=== PATIENT | female | born 1970 | race African-American/Black ===

== ENCOUNTER 2016-06-22 11:10 | Emergency (ER) | payer SELFPAY ==
[~2016-06-22] VITALS: Ht 162.6 cm; Wt 118.5 kg
[2016-06-22 11:15] VITALS: Ht 162.6 cm; Wt 118.5 kg
== END 2016-06-22 12:21 | disposition left against medical advice (07) ==
LOC: FTE 11:10
DX: Z53.21 Procedure and treatment not carried out due to patient leaving prior to being seen by health care provider (principal)

== ENCOUNTER 2016-11-07 11:36 | Inpatient (IN) | payer BC, MEDICAID ==
[~2016-11-07] VITALS: Ht 154.9 cm; Wt 126.2 kg
[2016-11-07] MEDS ORDERED: ASPIRIN 325 MG TAB PO STA (12:01)
[2016-11-07 12:16] LABS: ADD SCAN DIFF NO
[2016-11-07 12:19] LABS: BASOPHILS % 0.4 % (0.0-2.0); EOSINOPHILS # 0.2 10^3/ul (0.0-0.5); EOSINOPHILS % 2.6 % (0.0-7.0); HEMATOCRIT 39.6 % (37.0-47.0); HEMOGLOBIN 12.2 g/dl (12.0-16.0); LYMPHOCYTES # 4.1 10^3/ul (0.8-2.9); LYMPHOCYTES % 48.2 % (15.0-51.0); MEAN CORPUSCULAR HEMOGLOBIN 26.6 pg (29.0-33.0); MEAN CORPUSCULAR HGB CONC 30.8 g/dl (32.0-37.0); MEAN CORPUSCULAR VOLUME 86.5 fl (82.0-101.0); MEAN PLATELET VOLUME 10.8 fl (7.4-10.4); MONOCYTE # 0.7 10^3/ul (0.3-0.9); MONOCYTES % 7.7 % (0.0-11.0); NEUTROPHIL # 3.5 10^3/ul (1.6-7.5); NEUTROPHILS % 40.9 % (39.0-77.0); PLATELET COUNT 282 10^3/UL (140-415); RED BLOOD COUNT 4.58 10^6/ul (4.20-5.40); RED CELL DISTRIBUTION WIDTH 17.4 % (11.5-14.5); WHITE BLOOD COUNT 8.5 10^3/ul (4.8-10.8)
[2016-11-07] MEDS ORDERED: LORAZEPAM 2 MG INJ IV ONE (12:30)
[2016-11-07] MEDS ORDERED: NITROGLYCERIN (SL) 0.4 MG TAB SL PRN (12:30)
[2016-11-07 12:33] LABS: INR 1.03; PROTIME 13.5 Sec (12.2-14.2); PT RATIO 1.1
[2016-11-07 12:34] LABS: PARTIAL THROMBOPLASTIN TIME 26.4 Sec (25.0-35.0)
--- NOTE | 2016-11-07 12:36 | RADRPT ---
PROCEDURE: Chest x-ray CLINICAL INDICATION: Chest pain TECHNIQUE: Chest single view COMPARISON: None FINDINGS: There is mild cardiomegaly and mild CHF. No confluent pneumonia seen. Suspect small bilateral pleur al effusions. IMPRESSION: Cardiomegaly with mild CHF and probable small bilateral pleural effusions RPTAT: HH .Harjinder Taylor MD, Date Time Electronically viewed and signed by .Harjinder Taylor MD, on 11/07/2016 12:35 .W/
[2016-11-07 12:41] LABS: ALANINE AMINOTRANSFERASE 51 IU/L (13-69); ALBUMIN 3.4 g/dl (3.3-4.9); ALBUMIN/GLOBULIN RATIO 1.03; ALKALINE PHOSPHATASE 62 IU/L (42-121); ANION GAP 16 (8-16); ASPARTATE AMINO TRANSFERASE 32 IU/L (15-46); BILIRUBIN,INDIRECT 0.4 mg/dl (0-1.1); BILIRUBIN,TOTAL 0.4 mg/dl (0.2-1.3); BLOOD UREA NITROGEN 20 mg/dl (7-20); CALCIUM 8.9 mg/dl (8.4-10.2); CARBON DIOXIDE 27 mmol/L (21-31); CHLORIDE 105 mmol/L (97-110); CREATINE KINASE 104 IU/L (23-200); GLUCOSE 163 mg/dl (70-220); POTASSIUM 4.3 mmol/L (3.5-5.1); SODIUM 144 mmol/L (135-144); TOTAL PROTEIN 6.7 g/dl (6.1-8.1)
[2016-11-07 12:52] LABS: B-TYPE NATRIURETIC PEPTIDE 2680 PG/ML (0-125); CK-MB 1.42 ng/ml (0.0-2.4)
[2016-11-07 12:56] LABS: TROPONIN-I < 0.012 ng/ml (0.00-0.12)
[2016-11-07] MEDS ORDERED: ONDANSETRON 4 MG INJ IV PRN ×2 (14:00→18:30)
[2016-11-07] MEDS ORDERED: ACETAMINOPHEN 325 MG TAB PO PRN (14:00)
--- NOTE | 2016-11-07 14:07 | ERA ---
ER Documentation Chief Complaint Date/Time DATE: 11/07/16 TIME: 14:02 Chief Complaint BIB RA 100 FOR EVAL OF CP THIS AM HPI This is a 46-year-old female with known history of hypertension and congestive heart failure who presents to the emergency department complaining of a sudden onset of chest pressure that occurred 20 minutes prior to arrival. Patient said it was localized to the left substernal region and radiated to the left arm but no radiation to the back or neck. She indicates that the pain is 10 out of 10 in intensity. She had no associated symptoms of nausea vomiting or diaphoresis. She indicates she had similar pain roughly 1 week ago when she had been seen and evaluated at [facility]. She stated she was discharged 7 days ago. Her interchange agent who she saw admission was Dr. Hall. She denies any shortness of breath at rest or exertion. She denies any swelling of her lower extremities. She does have a history of congestive heart failure and takes 40 mg of Lasix on a daily basis. She has been compliant with her medications. She denies any recent travel or prolonged immobilization. She takes aspirin on a daily basis. The patient's past surgical history includes cholecystectomy, hernia repair and section ROS All systems reviewed and are negative except as per history of present illness. Allergies Allergies: Coded Allergies: No Known Allergy (Unverified , 06/22/16) PMhx/Soc History of Surgery: Yes (GALLBLADDER, C SECION) Anesthesia Reaction: No Hx Neurological Disorder: No Hx Respiratory Disorders: Yes (COPD) Hx Cardiac Disorders: Yes (CHF, HTN ) Hx Psychiatric Problems: No Hx Miscellaneous Medical Probl: Yes (DM) Hx Alcohol Use: Yes Hx Substance Use: No Hx Tobacco Use: Yes Smoking Status: Current every day smoker Physical Exam Vitals Vital Signs Date Time Temp Pulse Resp B/P Pulse Ox O2 Delivery O2 Flow Rate FiO2 11/07/16 12:06 Nasal Cannula 2 11/07/16 11:56 98.0 95 19 149/111 99 Physical Exam Constitutional:Well-developed. Well-nourished. Patient tearful and appeared to be in a significant amount discomfort secondary to pain HEENT:Normocephalic. Atraumatic.Pupils were equal round reactive to light. Moist mucous membranes.No tonsillar exudates. Neck: No nuchal rigidity. No lymphadenopathy. No posterior cervical spine tenderness or step-offs. Respiratory: Not using accessory muscles of respiration.Lungs were clear to auscultation bilaterally. No rhonchi. No rales. No wheezing. Cardiovascular: Regular rate regular rhythm.No murmurs. No rubs were appreciated.S1, S2 normal. Distal pulses are palpable 2+ bilaterally. GI: Abdomen was obese so exam is limited due to body habitus. Nontender. Non Distended. No pulsatile abdominal masses or bruits. No rebound. No guarding. Bowel sounds were present and normal. Muscle skeletal: Full range of motion of both the upper and lower extremities bilaterally.Normal muscle tone.No assymetrical calf tenderness or swelling. Skin: No petechia, no purpura. No lesions on the palms or the soles of the feet. No maculopapular rash. NEURO: Patient was alert, awake, orientated x3.No facial droop. Gait observed and normal with no ataxia.Speech had regular rate and rhythm. No focal neurological deficits. Result Diagram: 11/07/16 1200 11/07/16 1200 Results 24 hrs Laboratory Tests Test 11/07/16 12:00 White Blood Count 8.510^3/ul Red Blood Count 4.5810^6/ul Hemoglobin 12.2g/dl Hematocrit 39.6% Mean Corpuscular Volume 86.5fl Mean Corpuscular Hemoglobin 26.6pg Mean Corpuscular Hemoglobin Concent 30.8g/dl Red Cell Distribution Width 17.4% Platelet Count 66472^3/UL Mean Platelet Volume 10.8fl Neutrophils % 40.9% Lymphocytes % 48.2% Monocytes % 7.7% Eosinophils % 2.6% Basophils % 0.4% Neutrophils # 3.510^3/ul Lymphocytes # 4.110^3/ul Monocytes # 0.710^3/ul Eosinophils # 0.210^3/ul Basophils # 0.010^3/ul Nucleated Red Blood Cells # 0.010^3/ul Prothrombin Time 13.5Sec Prothrombin Time Ratio 1.1 INR International Normalized Ratio 1.03 Activated Partial Thromboplast Time 26.4Sec Sodium Level 144mmol/L Potassium Level 4.3mmol/L Chloride Level 105mmol/L Carbon Dioxide Level 27mmol/L Anion Gap 16 Blood Urea Nitrogen 20mg/dl Creatinine 0.90mg/dl Glucose Level 163mg/dl Calcium Level 8.9mg/dl Total Bilirubin 0.4mg/dl Direct Bilirubin 0.00mg/dl Indirect Bilirubin 0.4mg/dl Aspartate Amino Transf (AST/SGOT) 32IU/L Alanine Aminotransferase (ALT/SGPT) 51IU/L Alkaline Phosphatase 62IU/L Creatine Kinase 104IU/L Creatine Kinase Index 1.4 Creatinine Kinase MB (Mass) 1.42ng/ml Troponin I < 0.012ng/ml B-Type Natriuretic Peptide 2680PG/ML Total Protein 6.7g/dl Albumin 3.4g/dl Globulin 3.30g/dl Albumin/Globulin Ratio 1.03 Current Medications Medications (Trade) Dose Ordered Sig/Eugenio Route PRN Reason Start Time Stop Time Status Last Admin Dose Admin Aspirin (Aspirin) 325 mg ONCE STAT PO 11/07/16 12:01 11/07/16 12:03 DC 11/07/16 12:21 Nitroglycerin (Nitroglycerin (Sl Tab) 0.4 Mg) 1 tab Q5M UP TO 3 DOSES PRN SL CHEST PAIN 11/07/16 12:30 Lorazepam (Ativan) 1 mg ONCE ONCE IV 11/07/16 12:30 11/07/16 12:31 DC 11/07/16 12:23 Ondansetron HCl (Zofran Inj) 4 mg ER BRIDGE PRN IV NAUSEA AND/OR VOMITING 11/07/16 14:00 11/08/16 13:59 Acetaminophen (Tylenol Tab) 650 mg ER BRIDGE PRN PO MILD PAIN/FEVER 11/07/16 14:00 11/08/16 13:59 Procedures/MDM The patient presented to the emergency department with chest pain. My clinical evaluation and workup was to distinguish minor causes of chest pain from acute life threatening conditions such as myocardial infarction, pulmonary embolism, aortic dissection, esophageal rupture, cardiac tamponade. The patient was placed on a surgical services manager and continuous pulse oximetry. IV access established by nursing staff. Patient appeared very anxious and received IV Ativan. She also received aspirin and nitroglycerin with minimal improvement of her chest pain. I placed a consult to Dr. Hall who kindly stated he will evaluate the patient. The patient will be admitted in serious condition to the hospitalist for serial 12-lead EKG tracings and cardiac set of enzymes. 12 Lead EKG tracing ordered and reviewed by myself showed: Sinus tachycardia 115 bpm and no arrhythmia. MN interval normal. QRS duration normal. No ST segment elevation No ST segment depression. No changes consistent with acute ischemia. Departure Diagnosis: Primary Impression: Chest pain Qualified Code: R07.9 - Chest pain, unspecified type Condition: Serious DENISSE MADRID Nov 07, 2016 14:07
[2016-11-07] MEDS ORDERED: METO25TA7 PO (15:04)
[2016-11-07] MEDS ORDERED: LISI20TA11 PO (15:05)
[2016-11-07] MEDS ORDERED: FURO40TA4 PO (15:05)
[2016-11-07] MEDS ORDERED: MAGNESIUM HYDROXIDE 30ML CUP PO PRN (18:30)
[2016-11-07] MEDS ORDERED: morphine 2 MG INJ IV PRN (18:30)
[2016-11-07] MEDS ORDERED: LORAZEPAM 1 MG TAB PO PRN (18:30)
[2016-11-07] MEDS ORDERED: NICOTINE (14 MG/24 HR) PATCH TRANSDERM PRN (18:30)
--- NOTE | 2016-11-07 18:33 | HP ---
Date/Time of Note Date/Time of Note DATE: 11/07/16 TIME: 18:27 Assessment/Plan VTE Prophylaxis VTE Prophylaxis Intervention: heparin Lines/Catheters IV [facility]ter [facility]from [facility] Saline Lock Assessment/Plan Chief Complaint/Hosp Course Patient is a 46-year-old female presenting to [facility] for chest pain Assessment Chest pain Anxiety Abdominal pain, chronic secondary to hernia Abdominal hernia, secondary to failed mesh Hypertension CHF, reduced ejection fraction COPD Diabetes mellitus type 2 Elevated BNP Plan -Cardiology has been consulted, Dr. Hall, plan for stress test tomorrow a.m. -Echocardiogram ordered -Restart home meds -Pain control as necessary -Pepcid for possible GI cause of chest pain -Very likely musculoskeletal cause given tenderness upon palpation Farooq Lim DO Problems: HPI/ROS Admit Date/Time Admit Date/Time Hx of Present Illness Patient is a 46-year-old -[place] female with a past medical history of hypertension, CHF, COPD and diabetes mellitus who presents to [facility] for chest pain. Patient states the chest pain began approximately 20 minutes prior to admission however did have episodes of chest pain yesterday after she smoked marijuana however that she thinks was laced with another substance. Patient also states that she was admitted recently 1 week ago at [facility] and saw Dr. Hall, cardiology, however due to logistical matters was not able to follow-up with his recommendations of echocardiogram. Patient is usually compliant with medications however for the past 2 days has not taking her blood pressure medications. Patient was admitted by the ED for chest pain rule out. Dr. Hall consulted. 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 Meds: Lisinopril 20 mg, metoprolol succinate 25 mg daily, Lasix 40 mg daily, Levemir, metformin, potassium supplement PMH/Family/Social Social History Smoking Status: Current every day smoker Exam/Review of Systems Vital Signs Vitals Vital Signs Date Time Temp Pulse Resp B/P Pulse Ox O2 Delivery O2 Flow Rate FiO2 11/07/16 15:34 93 18 131/83 99 Room Air 11/07/16 12:06 2 11/07/16 11:56 98.0 Exam Exam Physical exam General: Patient is laying in bed and answers questions appropriately, obese Mentation: Patient is alert and oriented 4, Head: Normocephalic atraumatic Eyes: EOMI, pupils reactive to light Neck: Supple, nontender, midline Respiratory: Clear to auscultation bilaterally Cardiovascular: regular rate, painful upon chest palpation Gastrointestinal: tender to deep palpation, bowel sounds heard. Neurological: Moves all extremities spontaneously Skin: No new skin lesions Labs Result Diagram: 11/07/16 1200 11/07/16 1200 Medications Medications Current Medications Ondansetron HCl (Zofran Inj) 4 mg Q6H PRN IV NAUSEA AND/OR VOMITING; Start at 18:30; Status UNV Morphine Sulfate (morphine) 2 mg Q4H PRN IV SEVERE PAIN LEVEL 7-10; Start 11/07 at 18:30; Status UNV Magnesium Hydroxide (Milk Of Mag) 30 ml DAILY PRN PO CONSTIPATION; Start at 18:30; Status UNV Zolpidem Tartrate (Ambien) 5 mg QHS PRN PO SLEEP; Start 11/07/16 at 18:30; Status UNV Famotidine (Pepcid Iv) 20 mg Q12 IV ; Start 11/07/16 at 21:00; Status UNV Heparin Sodium (Porcine) (Heparin (5000 Units/0.5 ml)) 5,000 unit Q8 SC ; Start 11/07/16 at 22:00; Status UNV Lorazepam (Ativan) 1 mg QHS PRN PO ANXIETY; Start 11/07/16 at 18:30; Status UNV Miscellaneous Information (* Miscellaneous Pharmacy Order) Discontinue current oral sulfonylur... ONCE ONCE XX ; Start 11/07/16 at 18:30; Stop 11/07/16 at 18: 31; Status UNV Diagnostic Test (Pha) (Accu-Chek) 1 ea XX ; Start 11/08/16 at 02:00; Status UNV Miscellaneous Information (* Miscellaneous Pharmacy Order) HYPOGLYCEMIA PROTOCOL w... ONCE ONCE XX ; Start 11/07/16 at 18:30; Stop 11/07/16 at 18:31; Status UNV Furosemide (Lasix) 40 mg DAILY PO ; Start 11/07/16 at 18:30; Status UNV Lisinopril (Zestril) 20 mg DAILY PO ; Start 11/07/16 at 18:30; Status UNV Metoprolol Succinate (Toprol Xl) 25 mg DAILY PO ; Start 11/07/16 at 18:30; Status UNV Nicotine (Nicoderm 14 Mg/ 24hr) 1 patch ONCE PRN TRANSDERM SMOKING; Start 11/07 at 18:30; Status UNV FAROOQ LIM Nov 07, 2016 18:33
[2016-11-07] MEDS ORDERED: GLUCOSE GEL 15 GRAM TUBE PO PRN ×2 (19:00)
[2016-11-07] MEDS ORDERED: GLUCOSE GEL 15 GRAM TUBE BUCCAL PRN (19:00)
[2016-11-07] MEDS ORDERED: DEXTROSE 50% 50 ML SYRINGE IV PRN ×2 (19:00)
[2016-11-07] MEDS ORDERED: GLUCAGON 1 MG INJ IM PRN (19:00)
[2016-11-07 19:12] LABS: CK-MB 8.21 ng/ml (0.0-2.4)
[2016-11-07 19:15] LABS: TROPONIN-I 0.348 ng/ml (0.00-0.12)
[2016-11-07 20:00] VITALS: PULSE 92
[2016-11-07] MEDS: morphine 4 MG/ML VIAL IV PRN (20:44)
[2016-11-07 21:00] VITALS: Ht 154.9 cm; Wt 126.2 kg
[2016-11-07] MEDS ORDERED: ALBUTEROL/IPRATROPIUM (NEB) 3 ML AMP HHN PRN (21:17)
[2016-11-07 21:22] VITALS: BP 143/96; RESP 19
[2016-11-07] MEDS ORDERED: METOPROLOL (XL) 25 MG TAB PO SCH (22:00)
[2016-11-07] MEDS ORDERED: FUROSEMIDE 40 MG TAB PO SCH (22:00)
[2016-11-07] MEDS: ISOSORBIDE DINITRATE 20 MG TAB PO SCH (22:05)
[2016-11-07] MEDS: ZOLPIDEM 5 MG TAB PO PRN (22:05)
[2016-11-07] MEDS: FUROSEMIDE 40 MG TAB PO SCH (22:06)
[2016-11-07] MEDS: METOPROLOL (XL) 25 MG TAB PO SCH (22:07)
[2016-11-07] MEDS: HEPARIN 5,000 UNIT/0.5 ML VIAL SC SCH (22:12)
[2016-11-07] MEDS: INSULIN ASPART [NOVOLOG] 3 ML PEN SC SCH (22:19)
[2016-11-07] MEDS: FAMOTIDINE 20 MG INJ IV SCH (22:25)
[2016-11-07] MEDS: LISINOPRIL 20 MG TAB PO SCH (22:26)
[2016-11-07] MEDS ORDERED: morphine 4 MG/ML VIAL IV PRN (22:30)
[2016-11-08] VITALS (24 sets, daily range): BP systolic 92–121; BP diastolic 60–84; PULSE 76–137; RESP 16–20
[2016-11-08 01:55] LABS: CK-MB 28.8 ng/ml (0.0-2.4)
[2016-11-08 01:56] LABS: TROPONIN-I 2.07 ng/ml (0.00-0.12)
[2016-11-08] MEDS: ACCU-CHEK XX SCH (02:23)
[2016-11-08] MEDS: morphine 4 MG/ML VIAL IV PRN ×3 (02:28→08:41)
[2016-11-08] MEDS: FUROSEMIDE 40 MG TAB PO SCH ×2 (05:28→17:11)
[2016-11-08] MEDS: HEPARIN 5,000 UNIT/0.5 ML VIAL SC SCH ×2 (05:35→07:48)
[2016-11-08] MEDS ORDERED: HEPARIN 1000 UNITS/ML 10 ML INJ IV PRN (07:30)
[2016-11-08] MEDS ORDERED: HEPARIN 1000 UNITS/ML 10 ML INJ IV ONE (07:30)
[2016-11-08] MEDS ORDERED: HEPARIN 25000 UNITS/250 ML 250 ML IV SCH (07:30)
[2016-11-08] MEDS: INSULIN ASPART [NOVOLOG] 3 ML PEN SC SCH ×4 (08:25→21:00)
[2016-11-08] MEDS: LISINOPRIL 20 MG TAB PO SCH (08:32)
[2016-11-08] MEDS: FAMOTIDINE 20 MG INJ IV SCH ×2 (08:32→21:13)
[2016-11-08] MEDS: ISOSORBIDE DINITRATE 20 MG TAB PO SCH ×3 (08:32→21:14)
[2016-11-08] MEDS: METOPROLOL (XL) 25 MG TAB PO SCH ×2 (08:33→21:00)
[2016-11-08 08:40] LABS: ADD SCAN DIFF NO
[2016-11-08 08:46] LABS: BASOPHIL # 0.1 10^3/ul (0.0-0.1); BASOPHILS % 0.8 % (0.0-2.0); EOSINOPHILS # 0.3 10^3/ul (0.0-0.5); EOSINOPHILS % 3.8 % (0.0-7.0); HEMATOCRIT 41.2 % (37.0-47.0); HEMOGLOBIN 12.5 g/dl (12.0-16.0); LYMPHOCYTES # 2.9 10^3/ul (0.8-2.9); LYMPHOCYTES % 35.4 % (15.0-51.0); MEAN CORPUSCULAR HEMOGLOBIN 26.3 pg (29.0-33.0); MEAN CORPUSCULAR HGB CONC 30.3 g/dl (32.0-37.0); MEAN CORPUSCULAR VOLUME 86.7 fl (82.0-101.0); MEAN PLATELET VOLUME 11.9 fl (7.4-10.4); MONOCYTE # 0.7 10^3/ul (0.3-0.9); NEUTROPHIL # 4.3 10^3/ul (1.6-7.5); NEUTROPHILS % 51.9 % (39.0-77.0); RED BLOOD COUNT 4.75 10^6/ul (4.20-5.40); RED CELL DISTRIBUTION WIDTH 18.4 % (11.5-14.5); WHITE BLOOD COUNT 8.2 10^3/ul (4.8-10.8)
[2016-11-08 08:56] LABS: PLATELET COUNT 186 10^3/UL (140-415)
[2016-11-08 10:13] LABS: CALCIUM 8.6 mg/dl (8.4-10.2); CREATININE 0.86 mg/dl (0.44-1.00); MAGNESIUM 1.5 mg/dl (1.7-2.5); POTASSIUM 4.1 mmol/L (3.5-5.1)
--- NOTE | 2016-11-08 11:33 | CONS ---
Date/Time of Note Date/Time of Note DATE: 11/08/16 TIME: 11:24 Assessment/Plan Assessment/Plan Chief Complaint/Hosp Course IMP: 1.NSTEMI 2.HTN 3.Cardiomyopathy-low EF 30-35% at OSH 4.CHF-systolic acute on chronic 5.substance abuse 6.Chest pain Recc: -Tele -serial ecg's -Continue zestril/BB/oral nitrates -ASA -LHC with possible PTCA/stent today Problems: Consultation Date/Type/Reason Admit Date/Time Nov 07, 2016 at 13:39 Initial Consult Date 11/07/2016 Type of Consultation: cardiololgy Reason for Consultation Nstemi Referring Provider: WILL JAEGER MD Exam/Review of Systems Vital Signs Vitals Vital Signs Date Time Temp Pulse Resp B/P Pulse Ox O2 Delivery O2 Flow Rate FiO2 11/08/16 08:55 81 118/74 11/08/16 08:45 99 Room Air 11/08/16 07:46 98.1 18 Intake and Output 11/07/16 11/07/16 11/08/16 15:00 23:00 07:00 Intake Total 800 ml Balance 800 ml Exam Review of Systems: CONSTITUTIONAL: No fevers, chills. PULMONARY: No sob CARDIOVASCULAR: positive chest pain GASTROINTESTINAL: No nausea/vomiting. GENITOURINARY: No hematuria/dysuria. MUSCULOSKELETAL: No myagias/arthalgias. PSYCHIATRIC: The patient denies depression. NEUROLOGIC: No weakness Constitutional: alert, oriented Psych: no complaints Head: normocephalic ENMT: mucosa pink and moist Neck: jvd (8 cm water), supple Respiratory: diminished breath sounds Cardiovascular: regular rate and rhythm Gastrointestinal: non-tender, soft Musculoskeletal: muscle tone (normal) Extremities: edema (none) Neurological: other (No focal deficits) Results Result Diagram: 11/08/16 0820 11/08/16 0820 Results 24 hrs Laboratory Tests Test 11/07/16 12:00 11/07/16 18:35 11/07/16 20:48 11/07/16 22:15 White Blood Count 8.5 Red Blood Count 4.58 Hemoglobin 12.2 Hematocrit 39.6 Mean Corpuscular Volume 86.5 Mean Corpuscular Hemoglobin 26.6 L Mean Corpuscular Hemoglobin Concent 30.8 L Red Cell Distribution Width 17.4 H Platelet Count 282 Mean Platelet Volume 10.8 H Neutrophils % 40.9 Lymphocytes % 48.2 Monocytes % 7.7 Eosinophils % 2.6 Basophils % 0.4 Neutrophils # 3.5 Lymphocytes # 4.1 H Monocytes # 0.7 Eosinophils # 0.2 Basophils # 0.0 Nucleated Red Blood Cells # 0.0 Prothrombin Time 13.5 Prothrombin Time Ratio 1.1 INR International Normalized Ratio 1.03 Activated Partial Thromboplast Time 26.4 Sodium Level 144 Potassium Level 4.3 Chloride Level 105 Carbon Dioxide Level 27 Anion Gap 16 Blood Urea Nitrogen 20 Creatinine 0.90 Glucose Level 163 Calcium Level 8.9 Total Bilirubin 0.4 Direct Bilirubin 0.00 Indirect Bilirubin 0.4 Aspartate Amino Transf (AST/SGOT) 32 Alanine Aminotransferase (ALT/SGPT) 51 Alkaline Phosphatase 62 Creatine Kinase 104 136 Creatine Kinase Index 1.4 6.0 Creatinine Kinase MB (Mass) 1.42 8.21 H Troponin I < 0.012 0.348 *H B-Type Natriuretic Peptide 2680 H Total Protein 6.7 Albumin 3.4 Globulin 3.30 H Albumin/Globulin Ratio 1.03 Hemoglobin A1c 8.2 H Bedside Glucose 269 H 230 H Test 11/08/16 00:46 11/08/16 02:22 11/08/16 08:09 11/08/16 08:20 Creatine Kinase 247 H Creatine Kinase Index 11.7 Creatinine Kinase MB (Mass) 28.80 H Troponin I 2.070 *H 4.010 *H Bedside Glucose 179 227 H White Blood Count 8.2 Red Blood Count 4.75 Hemoglobin 12.5 Hematocrit 41.2 Mean Corpuscular Volume 86.7 Mean Corpuscular Hemoglobin 26.3 L Mean Corpuscular Hemoglobin Concent 30.3 L Red Cell Distribution Width 18.4 H Platelet Count 186 # Mean Platelet Volume 11.9 H Neutrophils % 51.9 Lymphocytes % 35.4 Monocytes % 8.0 Eosinophils % 3.8 Basophils % 0.8 Neutrophils # 4.3 Lymphocytes # 2.9 Monocytes # 0.7 Eosinophils # 0.3 Basophils # 0.1 Nucleated Red Blood Cells # 0.0 Prothrombin Time 12.9 Prothrombin Time Ratio 1.0 INR International Normalized Ratio 0.97 Activated Partial Thromboplast Time Pending Sodium Level 141 Potassium Level 4.1 Chloride Level 102 Carbon Dioxide Level 25 Anion Gap 18 H Blood Urea Nitrogen 18 Creatinine 0.86 Glucose Level 214 Calcium Level 8.6 Phosphorus Level 4.0 Magnesium Level 1.5 L Medications Medications Current Medications Ondansetron HCl (Zofran Inj) 4 mg Q6H PRN IV NAUSEA AND/OR VOMITING Last administered on 11/08/16 08:34; Admin Dose 4 MG; Start 11/07/16 at 18:30 Magnesium Hydroxide (Milk Of Mag) 30 ml DAILY PRN PO CONSTIPATION; Start at 18:30 Zolpidem Tartrate (Ambien) 5 mg QHS PRN PO SLEEP Last administered on 22:05; Admin Dose 5 MG; Start 11/07/16 at 18:30 Famotidine (Pepcid Iv) 20 mg Q12 IV Last administered on 11/08/16 08:32; Admin Dose 20 MG; Start 11/07/16 at 22:00 Lorazepam (Ativan) 1 mg QHS PRN PO ANXIETY Last administered on 11/07/16 22:07 ; Admin Dose 1 MG; Start 11/07/16 at 18:30 Diagnostic Test (Pha) (Accu-Chek) 1 ea 02 XX Last administered on 11/08/16 02: 23; Admin Dose 1 EA; Start 11/08/16 at 02:00 Lisinopril (Zestril) 20 mg DAILY PO Last administered on 11/08/16 08:32; Admin Dose 20 MG; Start 11/07/16 at 22:00 Nicotine (Nicoderm 14 Mg/ 24hr) 1 patch ONCE PRN TRANSDERM SMOKING Last administered on 11/08/16 08:34; Admin Dose 1 PATCH; Start 11/07/16 at 18:30; Stop 11/08/16 at 18:29 Miscellaneous Information 1 ea NOTE XX ; Start 11/07/16 at 19:00 Glucose (Glutose) 15 gm Q15M PRN PO DECREASED GLUCOSE; Start 11/07/16 at 19:00 Glucose (Glutose) 22.5 gm Q15M PRN PO DECREASED GLUCOSE; Start 11/07/16 at 19: 00 Dextrose (D50w Syringe) 25 ml Q15M PRN IV DECREASED GLUCOSE; Start 11/07/16 at 19:00 Dextrose (D50w Syringe) 50 ml Q15M PRN IV DECREASED GLUCOSE; Start 11/07/16 at 19:00 Glucagon (Glucagen) 1 mg Q15M PRN IM DECREASED GLUCOSE; Start 11/07/16 at 19:00 Glucose (Glutose) 15 gm Q15M PRN BUCCAL DECREASED GLUCOSE; Start 11/07/16 at 19 :00 Morphine Sulfate (morphine) 4 mg Q4H PRN IV SEVERE PAIN LEVEL 7-10 Last administered on 11/08/16 08:41; Admin Dose 4 MG; Start 11/07/16 at 20:37 Metoprolol Succinate (Toprol Xl) 25 mg BID PO Last administered on 11/08/16 08 :33; Admin Dose 25 MG; Start 11/07/16 at 21:00 Isosorbide Dinitrate (Isordil) 20 mg TID PO Last administered on 11/08/16 08: 32; Admin Dose 20 MG; Start 11/07/16 at 21:00 GAGAN GARCIA Nov 08, 2016 11:33
[2016-11-08] MEDS ORDERED: LIDOCAINE 100 MG SYRINGE ONE (11:48)
[2016-11-08] MEDS ORDERED: IODIXANOL LOCM 100 ML BTL ONE (11:48)
[2016-11-08] MEDS ORDERED: VERAPAMIL 5 MG INJ ONE (11:59)
[2016-11-08] MEDS ORDERED: NITROGLYCERIN (IC) 100 MCG/ML INJ ONE (11:59)
[2016-11-08] MEDS ORDERED: HEPARIN 1000 UNITS/ML 10 ML INJ ONE (11:59)
[2016-11-08] MEDS ORDERED: SOD CHLORIDE 0.9% 1,000 ML IV SCH (12:41)
[2016-11-08] MEDS ORDERED: ACETAMINOPHEN 325 MG TAB PO PRN (13:00)
[2016-11-08] MEDS ORDERED: ONDANSETRON 4 MG INJ IV PRN (13:00)
[2016-11-08] MEDS ORDERED: AL HYDROX/MG HYDROX/SIMETH 30 ML CUP PO PRN (13:00)
--- NOTE | 2016-11-08 13:22 | PN ---
Date/Time of Note Date/Time of Note DATE: 11/08/16 TIME: 13:20 Assessment/Plan VTE Prophylaxis VTE Prophylaxis Intervention: ambulation Lines/Catheters IV Catheter Type (from Nrs): Saline Lock Assessment/Plan Chief Complaint/Hosp Course Patient is a 46-year-old female presenting to [facility] for chest pain Assessment Chest pain, non ischemic Anxiety Abdominal pain, chronic secondary to hernia Abdominal hernia, secondary to failed mesh Hypertension CHF, reduced ejection fraction COPD Diabetes mellitus type 2 Elevated BNP Plan -Cardiology performed cath, negative for ischemia -patient admits to drug use, likely cocaine, drug screen sent out, stop BB if cocaine positive -diurese per cardiology -resume other home medications -trend troponins for another day -likely DC tomorrow. Farooq Lim DO Problems: Subjective 24 Hr Interval Summary Free Text/Dictation chest pain overnight, but no acute chest pain currently. Exam/Review of Systems Vital Signs Vitals Vital Signs Date Time Temp Pulse Resp B/P Pulse Ox O2 Delivery O2 Flow Rate FiO2 11/08/16 13:10 78 18 109/73 99 Nasal Cannula 2.0 11/08/16 12:55 98.2 Intake and Output 11/07/16 11/07/16 11/08/16 14:59 22:59 06:59 Intake Total 800 ml Balance 800 ml Exam Physical exam General: Patient is laying in bed and answers questions appropriately, obese Mentation: Patient is alert and oriented 4, Head: Normocephalic atraumatic Eyes: EOMI, pupils reactive to light Neck: Supple, nontender, midline Respiratory: Clear to auscultation bilaterally Cardiovascular: regular rate, painful upon chest palpation Gastrointestinal: tender to deep palpation, bowel sounds heard. Neurological: Moves all extremities spontaneously Skin: No new skin lesions Results Result Diagram: 11/08/16 0820 11/08/16 0820 Results 24 hrs Laboratory Tests Test 11/07/16 18:35 11/07/16 20:48 11/07/16 22:15 11/08/16 00:46 Hemoglobin A1c 8.2 H Creatine Kinase 136 247 H Creatine Kinase Index 6.0 11.7 Creatinine Kinase MB (Mass) 8.21 H 28.80 H Troponin I 0.348 *H 2.070 *H Bedside Glucose 269 H 230 H Test 11/08/16 02:22 11/08/16 08:09 11/08/16 08:20 Bedside Glucose 179 227 H White Blood Count 8.2 Red Blood Count 4.75 Hemoglobin 12.5 Hematocrit 41.2 Mean Corpuscular Volume 86.7 Mean Corpuscular Hemoglobin 26.3 L Mean Corpuscular Hemoglobin Concent 30.3 L Red Cell Distribution Width 18.4 H Platelet Count 186 # Mean Platelet Volume 11.9 H Neutrophils % 51.9 Lymphocytes % 35.4 Monocytes % 8.0 Eosinophils % 3.8 Basophils % 0.8 Neutrophils # 4.3 Lymphocytes # 2.9 Monocytes # 0.7 Eosinophils # 0.3 Basophils # 0.1 Nucleated Red Blood Cells # 0.0 Prothrombin Time 12.9 Prothrombin Time Ratio 1.0 INR International Normalized Ratio 0.97 Activated Partial Thromboplast Time Pending Sodium Level 141 Potassium Level 4.1 Chloride Level 102 Carbon Dioxide Level 25 Anion Gap 18 H Blood Urea Nitrogen 18 Creatinine 0.86 Glucose Level 214 Calcium Level 8.6 Phosphorus Level 4.0 Magnesium Level 1.5 L Troponin I 4.010 *H Medications Medications Current Medications Magnesium Hydroxide (Milk Of Mag) 30 ml DAILY PRN PO CONSTIPATION; Start at 18:30 Zolpidem Tartrate (Ambien) 5 mg QHS PRN PO SLEEP Last administered on 22:05; Admin Dose 5 MG; Start 11/07/16 at 18:30 Famotidine (Pepcid Iv) 20 mg Q12 IV Last administered on 11/08/16 08:32; Admin Dose 20 MG; Start 11/07/16 at 22:00 Lorazepam (Ativan) 1 mg QHS PRN PO ANXIETY Last administered on 11/07/16 22:07 ; Admin Dose 1 MG; Start 11/07/16 at 18:30 Diagnostic Test (Pha) (Accu-Chek) 1 ea 02 XX Last administered on 11/08/16 02: 23; Admin Dose 1 EA; Start 11/08/16 at 02:00 Lisinopril (Zestril) 20 mg DAILY PO Last administered on 11/08/16 08:32; Admin Dose 20 MG; Start 11/07/16 at 22:00 Nicotine (Nicoderm 14 Mg/ 24hr) 1 patch ONCE PRN TRANSDERM SMOKING Last administered on 11/08/16 08:34; Admin Dose 1 PATCH; Start 11/07/16 at 18:30; Stop 11/08/16 at 18:29 Miscellaneous Information 1 ea NOTE XX ; Start 11/07/16 at 19:00 Glucose (Glutose) 15 gm Q15M PRN PO DECREASED GLUCOSE; Start 11/07/16 at 19:00 Glucose (Glutose) 22.5 gm Q15M PRN PO DECREASED GLUCOSE; Start 11/07/16 at 19: 00 Dextrose (D50w Syringe) 25 ml Q15M PRN IV DECREASED GLUCOSE; Start 11/07/16 at 19:00 Dextrose (D50w Syringe) 50 ml Q15M PRN IV DECREASED GLUCOSE; Start 11/07/16 at 19:00 Glucagon (Glucagen) 1 mg Q15M PRN IM DECREASED GLUCOSE; Start 11/07/16 at 19:00 Glucose (Glutose) 15 gm Q15M PRN BUCCAL DECREASED GLUCOSE; Start 11/07/16 at 19 :00 Metoprolol Succinate (Toprol Xl) 25 mg BID PO Last administered on 11/08/16 08 :33; Admin Dose 25 MG; Start 11/07/16 at 21:00 Isosorbide Dinitrate (Isordil) 20 mg TID PO Last administered on 11/08/16 08: 32; Admin Dose 20 MG; Start 11/07/16 at 21:00 Aspirin (Aspirin) 325 mg DAILY PO ; Start 11/09/16 at 09:00 Acetaminophen (Tylenol Tab) 650 mg Q4H PRN PO NON-CARDIAC PAIN LEVEL (1-3); Start 11/08/16 at 13:00 Morphine Sulfate (morphine) 2 mg Q2H PRN IV FOR NON CARDIAC PAIN (4-10); Start 11/08/16 at 13:00 Al Hydrox/Mg Hydrox/Simethicone (Mag-Al Plus) 30 ml Q4H PRN PO GASTROINTESTINAL UPSET; Start 11/08/16 at 13:00 Ondansetron HCl 4 mg 4 mg Q4H PRN IV NAUSEA AND/OR VOMITING; Start 11/08/16 at 13:00 Sodium Chloride (NS) 1,000 ml @ 75 mls/hr [id number] IV ; Start 11/08/16 at 12:41 ; Stop 11/08/16 at 17:40 FAROOQ LIM Nov 08, 2016 13:22
[2016-11-08] MEDS: morphine 2 MG INJ IV PRN ×2 (17:12→21:14)
--- NOTE | 2016-11-08 19:04 | RADRPT ---
Vent Rate: 84 bpm RR Interval: 0 msec RI Interval: 150 msec QRS Duration: 102 msec QT Interval: 404 msec QTC Interval: 477 msec P-R-T [place]: 28 - 52 - 57 degrees Normal sinus rhythm Possible Anterior infarct , age undetermined Abnormal ECG Electronically Signed By: Dionte Hall [id number]
--- NOTE | 2016-11-08 19:08 | RADRPT ---
Vent Rate: 79 bpm RR Interval: 0 msec [place] Interval: 152 msec QRS Duration: 102 msec QT Interval: 428 msec QTC Interval: 490 msec P-R-T [place]: 30 - 8 - 61 degrees Normal sinus rhythm Septal infarct , age undetermined Abnormal ECG Electronically Signed By: Dionte Hall [id number]
[2016-11-08] MEDS: ZOLPIDEM 5 MG TAB PO PRN (21:26)
[2016-11-09] VITALS: PULSE 82
[2016-11-09 00:20] LABS: CANNABINOIDS Negative (NEGATIVE)
[2016-11-09 00:24] LABS: BARBITURATES Negative (NEGATIVE); BENZODIAZEPINES Negative (NEGATIVE); COCAINE Positive (NEGATIVE); OPIATES Positive (NEGATIVE)
[2016-11-09] MEDS: ACCU-CHEK XX SCH (01:33)
[2016-11-09 04:00] VITALS: PULSE 81
[2016-11-09 04:38] VITALS: BP 109/67; RESP 18
[2016-11-09] MEDS: FUROSEMIDE 40 MG TAB PO SCH (06:40)
[2016-11-09 08:13] VITALS: BP 113/77; RESP 18
[2016-11-09 08:17] VITALS: PULSE 77
[2016-11-09] MEDS: INSULIN ASPART [NOVOLOG] 3 ML PEN SC SCH ×2 (08:22→12:00)
[2016-11-09] MEDS: FAMOTIDINE 20 MG INJ IV SCH (08:30)
[2016-11-09] MEDS: LISINOPRIL 20 MG TAB PO SCH (08:30)
[2016-11-09] MEDS: ISOSORBIDE DINITRATE 20 MG TAB PO SCH (08:30)
[2016-11-09] MEDS: morphine 2 MG INJ IV PRN (08:49)
[2016-11-09] MEDS ORDERED: ASPIRIN 325 MG TAB PO SCH (09:00)
[2016-11-09] MEDS: METOPROLOL (XL) 25 MG TAB PO SCH (09:00)
--- NOTE | 2016-11-09 09:48 | CARRPT ---
DATE OF PROCEDURE: 11/08/2016 TYPE OF PROCEDURE: 1. Left heart catheterization. 2. Coronary angiography. 3. Measurement of left ventricular end-diastolic pressure. ATTENDING PHYSICIAN: Dr. Dionte Hall. REFERRING PHYSICIAN: Dr. Manriquez from the hospitalist service. INDICATION: [id number] myocardial infarction. TYPE OF ANESTHESIA: Conscious and local. BRIEF HISTORY: Ms. Beckett is a 46-year-old female with history of hypertension, dyslipidemia, cardiomyopathy, decreased left ventricular ejection fraction, substance abuse, ongoing tobacco usage, who initially presented with complaints of substernal chest pain and ruled in for a [id number] myocardial infarction with increased troponin at 4 as time of procedure. The patient had been placed on maximal medical therapy. PROCEDURE: After informed consent was obtained, patient was brought to the [facility] where her right radial wrist was prepped and draped in usual sterile fashion. 2 percent lidocaine was infiltrated in the right radial area in order to achieve adequate local anesthesia. Using the modified Seldinger technique, the radial artery was cannulated and a 6-Azeri arterial sheath was placed. A 6-Azeri JL3.5 catheter was used to cath the left main coronary artery ostium. With contrast injection, multiple views of the left coronary artery system were obtained. A JL3.5 guidewire and a JR4 were used to cannulate the right coronary artery ostium. With contrast injection, multiple views of the right coronary artery arterial system was done. JR4 was removed and a 6-Azeri pigtail was passed down the ascending aorta into the left main. Left ventricular end-diastolic pressure was measured. No LV-gram was undertaken due to significantly elevated LVEDP. The tip of the catheter was then pulled back across the aortic valve to assess for significant gradient, which there was none, and removed. Subsequently at this point in the procedure, the patient's sheath was removed. TR band was applied. There were no none complications. FINDINGS: 1. Coronary angiography: The left main, 5.5 mm. No significant stenosis. Circumflex proximally is a 4 mm vessel and has no significant focal stenosis throughout its entirety. There are 2 mid branching obtuse marginals, each approximately 2 mm with no significant focal stenosis. There exists a ramus branch, 3 mm, and no significant focal stenosis. The LAD proximally is a 4 mm vessel and its mid portion has a 20 percent stenosis. The remainder of the LAD is free of significant focal stenosis. It rounds the apex. There are proximal branching diagonal and mid branching diagonal, each 2 mm, with no significant focal stenosis. The right coronary artery proximally is a 3.5 mm vessel and has a tubular-appearing 20 percent to 30 percent stenosis in its mid portion. It is a dominant vessel and gives off a 2 mm PDA and a 2 mm posterolateral branch, each with no significant focal stenosis. 2. Measurement of left ventricular end-diastolic pressure, 42- 43. No significant aortic stenosis by gradient. TOTAL FLUOROSCOPY TIME: 4.2 minutes. TOTAL CONTRAST: 80 cc. IMPRESSION: 1. Essentially normal coronary arteries with very mild nonobstructive coronary artery disease. 2. Severely elevated left heart filling pressures. 3. No significant aortic stenosis by gradient. RECOMMENDATIONS: In light of procedure and findings at this time: 1. Maximize medical management. 2. Aggressive risk factor reduction. 3. Continue to tend the patient's cardiac enzymes. 4. Patient will be readmitted to telemetry for post catheterization observation and continued management of any symptoms. Dictated By: Saad Hewitt /george/zaire /Document#: [id number] ; Dr. Manriquez
--- NOTE | 2016-11-09 11:17 | PDOCDIS ---
Discharge Instructions CONDITION Patient Condition: Stable HOME CARE INSTRUCTIONS: Diet Instructions: Reduced Sodium FOLLOW UP/APPOINTMENTS Follow-up Plan Please follow up with Dr. Hall, cardiology within 1-2 weeks. ELLE LIM Nov 09, 2016 11:17
[2016-11-09 11:45] VITALS: BP 104/72; PULSE 81
--- NOTE | 2016-11-09 12:49 | DS ---
Date/Time of Note Date/Time of Note DATE: 11/09/16 TIME: 12:48 Discharge Summary Admission/Discharge Info Admit Date/Time Nov 07, 2016 at 13:39 Discharge Date/Time Nov 09, 2016 at 12:15 Patient Condition: Stable Hx of Present Illness Patient is a 46-year-old -[place] female with a past medical history of hypertension, CHF, COPD and diabetes mellitus who presents to [facility] for chest pain. Patient states the chest pain began approximately 20 minutes prior to admission however did have episodes of chest pain yesterday after she smoked marijuana however that she thinks was laced with another substance. Patient also states that she was admitted recently 1 week ago at [facility] and saw Dr. Hall, cardiology, however due to logistical matters was not able to follow-up with his recommendations of echocardiogram. Patient is usually compliant with medications however for the past 2 days has not taking her blood pressure medications. Patient was admitted by the ED for chest pain rule out. Dr. Hall consulted. 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 Meds: Lisinopril 20 mg, metoprolol succinate 25 mg daily, Lasix 40 mg daily, Levemir, metformin, potassium supplement Hospital Course Patient is a 46-year-old female presenting to [facility] for chest pain Assessment Chest pain, non ischemic Anxiety Abdominal pain, chronic secondary to hernia Abdominal hernia, secondary to failed mesh Hypertension CHF, reduced ejection fraction COPD Diabetes mellitus type 2 Elevated BNP Patient is a 46-year-old female with past medical history significant for hypertension and CHF who presents to [facility] for chest pain. Patient had positive troponins and underwent cardiac catheterization which did not find any ischemic cause of her elevated troponins. Patient was also found to be cocaine positive and did admit to possible cocaine use with her marijuana a few days prior. 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 Patient is to continue all her other previous medications and is happy to go home. Patient will return to the ED if her symptoms persist. Farooq Lim DO Home Meds Reported Medications Lisinopril* (Lisinopril*) 20 Mg Tablet, 20 MG PO DAILY, #30 TAB 11/07/16 Furosemide* (Furosemide*) 40 Mg Tablet, 40 MG PO DAILY, TAB 11/07/16 Discontinued Reported Medications Metoprolol Succinate* (Toprol XL*) 25 Mg Tab.sr.24h, 25 MG PO DAILY, #30 TAB 11/07/16 Primary Care Provider Care Physician No Primary Time spent on discharge: > 30 minutes Pending Labs Laboratory Tests Test 11/08/16 16:58 11/08/16 17:40 11/08/16 18:30 11/08/16 21:11 Bedside Glucose 174mg/dL (70-220) 114mg/dL (70-220) Activated Partial Thromboplast Time 33.2Sec (25.0-35.0) Troponin I 5.290ng/ml (0.00-0.12) Urine Opiates Screen Positive (NEGATIVE) Urine Barbiturates Negative (NEGATIVE) Urine Amphetamines Screen Negative (NEGATIVE) Urine Benzodiazepines Screen Negative (NEGATIVE) Urine Cocaine Screen Positive (NEGATIVE) Urine Cannabinoids Negative (NEGATIVE) Test 11/09/16 01:38 11/09/16 07:44 Troponin I 4.340ng/ml (0.00-0.12) Bedside Glucose 156mg/dL (70-220) FAROOQ LIM Nov 09, 2016 12:49
== END 2016-11-09 12:15 | disposition home or self-care (01) | DRG 280 ==
LOC: E/R 11:36 → MS4 13:39
PROVIDERS: ADMIT Internal Medicine; ATTEND Internal Medicine
PROC: B211YZZ Fluoroscopy of Multiple Coronary Arteries using Other Contrast (ICD-10-PCS; 2016-11-08)
PROC: 4A023N7 Measurement of Cardiac Sampling and Pressure, Left Heart, Percutaneous Approach (ICD-10-PCS; principal; 2016-11-08 12:00)
DX: I21.4 Non-ST elevation (NSTEMI) myocardial infarction (principal); I50.23 Acute on chronic systolic (congestive) heart failure; I42.9 Cardiomyopathy, unspecified; E11.9 Type 2 diabetes mellitus without complications; I25.119 Atherosclerotic heart disease of native coronary artery with unspecified angina pectoris; I11.0 Hypertensive heart disease with heart failure; J44.9 Chronic obstructive pulmonary disease, unspecified; F41.9 Anxiety disorder, unspecified; F17.210 Nicotine dependence, cigarettes, uncomplicated; F11.10 Opioid abuse, uncomplicated; F14.10 Cocaine abuse, uncomplicated; Z79.4 Long term (current) use of insulin; Z79.82 Long term (current) use of aspirin; Z98.890 Other specified postprocedural states
CPT/HCPCS: 36415; 71010; 80048; 80053; 80307; 82550; 82553; 82962; 83036; 83735; 83880; 84100; 84484; 85025; 85610; 85730; 93005; 93458; 94664; 96374; 96375; C1769; C1887; J1644; J1815; J2001; J2060; J2270; J2405; J7030; Q9967

== ENCOUNTER 2017-02-21 10:21 | Inpatient (IN) | payer BC ==
[2017-02-21] VITALS (7 sets, daily range): BP systolic 105–112; BP diastolic 59–66; PULSE 88–93; RESP 16–22
[~2017-02-21] VITALS: Ht 154.9 cm; Wt 142.0 kg
[~2017-02-21 10:21] MED LIST: ASPI-664 PO; FURO40TA4 PO; INSU100I27 SC; LEVO500T72 PO; LISI10TA2 PO; MED4DP PO; METO-335 PO
[2017-02-21] MEDS ORDERED: METHYLPREDNISOLONE 4 MG TAB PO SCH ×2 (15:00)
[2017-02-21] MEDS ORDERED: ALBUTEROL/IPRATROPIUM (NEB) 3 ML AMP HHN PRN (15:00)
[2017-02-21] MEDS ORDERED: ACETAMINOPHEN 650 MG SUPP PR PRN (15:00)
[2017-02-21] MEDS ORDERED: GLUCOSE GEL 15 GRAM TUBE PO PRN ×2 (15:00)
[2017-02-21] MEDS ORDERED: ONDANSETRON 4 MG INJ IV PRN (15:00)
[2017-02-21] MEDS ORDERED: MAGNESIUM HYDROXIDE 30ML CUP PO PRN (15:00)
[2017-02-21] MEDS ORDERED: GLUCOSE GEL 15 GRAM TUBE BUCCAL PRN (15:00)
[2017-02-21] MEDS ORDERED: BISACODYL (EC) 5 MG TAB PO PRN (15:00)
[2017-02-21] MEDS ORDERED: ACETAMINOPHEN 325 MG TAB PO PRN (15:00)
[2017-02-21] MEDS ORDERED: DEXTROSE 50% 50 ML SYRINGE IV PRN ×2 (15:00)
[2017-02-21] MEDS ORDERED: NACL 0.9% 3 ML SYG IV SCH ×2 (15:00→15:30)
[2017-02-21] MEDS ORDERED: GLUCAGON 1 MG INJ IM PRN (15:00)
[2017-02-21] MEDS ORDERED: DOCUSATE SODIUM 100 MG CAP PO PRN (15:00)
[2017-02-21] MEDS ORDERED: HYDROmorphONE 0.5 MG/0.5 ML SYG IV PRN (15:30)
--- NOTE | 2017-02-21 15:32 | HP ---
Date/Time of Note Date/Time of Note DATE: 02/21/17 TIME: 15:31 Assessment/Plan VTE Prophylaxis VTE Prophylaxis Intervention: ambulation, LMWH Lines/Catheters IV Catheter Type (from Nrs): Saline Lock Urinary Cath still in place: Yes Reason Cath still needed: urinary retention Assessment/Plan Chief Complaint/Hosp Course 1. CHF, dyastolic exacerbation 2. COPD 3. Morbid obesity 4. Hypertension, controlled 5. Anemia 6. Hx of gallbladder stones 7. Former smoker 8. Hs of drug use Problems: Assessment/Plan 1. Telemetry service 2. Fluid restrictions 3. Dr Miramontes to see 4. Pain control HPI/ROS Admit Date/Time Admit Date/Time Feb 21, 2017 at 13:06 Hx of Present Illness This -French 46 yo female was transferred 02/21/2017 from [facility] per insurance purposes with CHF exacerbation. Known for hypertension, morbid obesity , hx of gallbladder stones. ROS Constitutional: other (hard to move), weight change Eyes: no complaints ENT: no complaints Respiratory: shortness of breath Gastrointestinal: pain (10) Genitourinary: no complaints Skin: no complaints PMH/Family/Social Past Medical History Medical History: diabetes, gallstones, high cholesterol, hypertension, urinary tract infection Past Surgical History Past Surgical Hx: no surgical history ( History of cholecystectomy, , and twice abdominal herniorrhaphy.), other ( History of cholecystectomy, C- section, and twice abdominal herniorrhaphy.) Family History Significant Family History: no pertinent family hx Social History Alcohol Use: none Smoking Status: Former smoker Drug Use: none Exam/Review of Systems Vital Signs Vitals Vital Signs Date Time Temp Pulse Resp B/P Pulse Ox O2 Delivery O2 Flow Rate FiO2 02/21/17 15:04 98.2 90 22 112/65 97 02/21/17 14:08 Nasal Cannula 3.0 Exam Constitutional: alert, oriented Psych: no complaints Head: normocephalic Eyes: nl conjunctiva ENMT: nl external ears & nose Neck: supple Respiratory: congested cough, crackles/rales, diminished breath sounds Cardiovascular: regular rate and rhythm Gastrointestinal: soft Genitourinary - Female: nl adnexae Musculoskeletal: nl extremities to inspection Extremities: pitting pedal edema 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 Skin: nl turgor Medications Medications Current Medications Aspirin (Halfprin) 81 mg DAILY PO ; Start 02/22/17 at 09:00 Furosemide (Lasix) 40 mg DAILY PO ; Start 02/22/17 at 09:00 Insulin Detemir (Levemir) 35 unit DAILY@08 SC ; Start 02/22/17 at 08:00 Levofloxacin (Levaquin) 500 mg DAILY@06 PO ; Start 02/22/17 at 06:00 Lisinopril (Zestril) 10 mg DAILY PO ; Start 02/22/17 at 09:00 Metoprolol Succinate (Toprol Xl) 12.5 mg DAILY PO ; Start 02/22/17 at 09:00 Diagnostic Test (Pha) (Accu-Chek) 1 ea 02 XX ; Start 02/22/17 at 02:00 Ondansetron HCl (Zofran Inj) 4 mg Q6H PRN IV NAUSEA AND/OR VOMITING; Start 02/21/17 at 15:00 Acetaminophen (Tylenol Tab) 650 mg Q6H PRN PO PAIN LEVEL 1-3 OR FEVER; Start 02/21/17 at 15:00 Acetaminophen (Tylenol Supp) 650 mg Q6H PRN [place] PAIN LEVEL 1-3 OR FEVER; Start 02/21/17 at 15:00 Docusate Sodium (Colace) 100 mg Q12H PRN PO CONSTIPATION; Start 02/21/17 at 15: 00 Magnesium Hydroxide (Milk Of Mag) 30 ml DAILY PRN PO CONSTIPATION; Start at 15:00 Bisacodyl (Dulcolax) 5 mg DAILY PRN PO CONSTIPATION; Start 02/21/17 at 15:00 Pantoprazole (Protonix Iv) 40 mg DAILY@06 IV ; Start 02/22/17 at 06:00 Enoxaparin Sodium (Lovenox) 40 mg DAILY SC ; Start 02/22/17 at 09:00 Miscellaneous Information 1 ea NOTE XX ; Start 02/21/17 at 15:00 Glucose (Glutose) 15 gm Q15M PRN PO DECREASED GLUCOSE; Start 02/21/17 at 15:00 Glucose (Glutose) 22.5 gm Q15M PRN PO DECREASED GLUCOSE; Start 02/21/17 at 15: 00 Dextrose (D50w Syringe) 25 ml Q15M PRN IV DECREASED GLUCOSE; Start 02/21/17 at 15:00 Dextrose (D50w Syringe) 50 ml Q15M PRN IV DECREASED GLUCOSE; Start 02/21/17 at 15:00 Glucagon (Glucagen) 1 mg Q15M PRN IM DECREASED GLUCOSE; Start 02/21/17 at 15:00 Glucose (Glutose) 15 gm Q15M PRN BUCCAL DECREASED GLUCOSE; Start 02/21/17 at 15 :00 Methylprednisolone (Medrol) 8 mg HS PO ; Start 02/22/17 at 21:00; Stop 02/22/17 at 21:01 Methylprednisolone (Medrol) 4 mg HS PO ; Start 02/23/17 at 21:00; Stop 02/25/17 at 21:01 Methylprednisolone (Medrol) 24 mg ONCE PO ; Start 02/21/17 at 15:00; Stop at 23:45 MELANIA LAMBERT Feb 21, 2017 15:32
--- NOTE | 2017-02-21 15:32 | HP ---
Date/Time of Note Date/Time of Note DATE: 02/21/17 TIME: 15:31 Assessment/Plan VTE Prophylaxis VTE Prophylaxis Intervention: ambulation, LMWH Lines/Catheters IV Catheter Type (from Nrs): Saline Lock Urinary Cath still in place: Yes Reason Cath still needed: urinary retention Assessment/Plan Chief Complaint/Hosp Course 1. CHF, dyastolic exacerbation 2. COPD 3. Morbid obesity 4. Hypertension, controlled 5. Anemia 6. Hx of gallbladder stones 7. Former smoker 8. Hs of drug use Problems: Assessment/Plan 1. Telemetry service 2. Fluid restrictions 3. Dr Miramontes to see 4. Pain control HPI/ROS Admit Date/Time Admit Date/Time Feb 21, 2017 at 13:06 Hx of Present Illness This -[place] 46 yo female was transferred 02/21/2017 from [facility] per insurance purposes with CHF exacerbation. Known for hypertension, morbid obesity , hx of gallbladder stones. ROS Constitutional: other (hard to move), weight change Eyes: no complaints ENT: no complaints Respiratory: shortness of breath Gastrointestinal: pain (10) Genitourinary: no complaints Skin: no complaints PMH/Family/Social Past Medical History Medical History: diabetes, gallstones, high cholesterol, hypertension, urinary tract infection Past Surgical History Past Surgical Hx: no surgical history ( History of cholecystectomy, , and twice abdominal herniorrhaphy.), other ( History of cholecystectomy, C- section, and twice abdominal herniorrhaphy.) Family History Significant Family History: no pertinent family hx Social History Alcohol Use: none Smoking Status: Former smoker Drug Use: none Exam/Review of Systems Vital Signs Vitals Vital Signs Date Time Temp Pulse Resp B/P Pulse Ox O2 Delivery O2 Flow Rate FiO2 02/21/17 15:04 98.2 90 22 112/65 97 02/21/17 14:08 Nasal Cannula 3.0 Exam Constitutional: alert, oriented Psych: no complaints Head: normocephalic Eyes: nl conjunctiva ENMT: nl external ears & nose Neck: supple Respiratory: congested cough, crackles/rales, diminished breath sounds Cardiovascular: regular rate and rhythm Gastrointestinal: soft Genitourinary - Female: nl adnexae Musculoskeletal: nl extremities to inspection Extremities: pitting pedal edema 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 Skin: nl turgor Medications Medications Current Medications Aspirin (Halfprin) 81 mg DAILY PO ; Start 02/22/17 at 09:00 Furosemide (Lasix) 40 mg DAILY PO ; Start 02/22/17 at 09:00 Insulin Detemir (Levemir) 35 unit DAILY@08 SC ; Start 02/22/17 at 08:00 Levofloxacin (Levaquin) 500 mg DAILY@06 PO ; Start 02/22/17 at 06:00 Lisinopril (Zestril) 10 mg DAILY PO ; Start 02/22/17 at 09:00 Metoprolol Succinate (Toprol Xl) 12.5 mg DAILY PO ; Start 02/22/17 at 09:00 Diagnostic Test (Pha) (Accu-Chek) 1 ea 02 XX ; Start 02/22/17 at 02:00 Ondansetron HCl (Zofran Inj) 4 mg Q6H PRN IV NAUSEA AND/OR VOMITING; Start 02/21/17 at 15:00 Acetaminophen (Tylenol Tab) 650 mg Q6H PRN PO PAIN LEVEL 1-3 OR FEVER; Start 02/21/17 at 15:00 Acetaminophen (Tylenol Supp) 650 mg Q6H PRN [place] PAIN LEVEL 1-3 OR FEVER; Start 02/21/17 at 15:00 Docusate Sodium (Colace) 100 mg Q12H PRN PO CONSTIPATION; Start 02/21/17 at 15: 00 Magnesium Hydroxide (Milk Of Mag) 30 ml DAILY PRN PO CONSTIPATION; Start at 15:00 Bisacodyl (Dulcolax) 5 mg DAILY PRN PO CONSTIPATION; Start 02/21/17 at 15:00 Pantoprazole (Protonix Iv) 40 mg DAILY@06 IV ; Start 02/22/17 at 06:00 Enoxaparin Sodium (Lovenox) 40 mg DAILY SC ; Start 02/22/17 at 09:00 Miscellaneous Information 1 ea NOTE XX ; Start 02/21/17 at 15:00 Glucose (Glutose) 15 gm Q15M PRN PO DECREASED GLUCOSE; Start 02/21/17 at 15:00 Glucose (Glutose) 22.5 gm Q15M PRN PO DECREASED GLUCOSE; Start 02/21/17 at 15: 00 Dextrose (D50w Syringe) 25 ml Q15M PRN IV DECREASED GLUCOSE; Start 02/21/17 at 15:00 Dextrose (D50w Syringe) 50 ml Q15M PRN IV DECREASED GLUCOSE; Start 02/21/17 at 15:00 Glucagon (Glucagen) 1 mg Q15M PRN IM DECREASED GLUCOSE; Start 02/21/17 at 15:00 Glucose (Glutose) 15 gm Q15M PRN BUCCAL DECREASED GLUCOSE; Start 02/21/17 at 15 :00 Methylprednisolone (Medrol) 8 mg HS PO ; Start 02/22/17 at 21:00; Stop 02/22/17 at 21:01 Methylprednisolone (Medrol) 4 mg HS PO ; Start 02/23/17 at 21:00; Stop 02/25/17 at 21:01 Methylprednisolone (Medrol) 24 mg ONCE PO ; Start 02/21/17 at 15:00; Stop at 23:45 MELANIA LAMBERT Feb 21, 2017 15:32
--- NOTE | 2017-02-21 15:32 | HP ---
Date/Time of Note Date/Time of Note DATE: 02/21/17 TIME: 15:31 Assessment/Plan VTE Prophylaxis VTE Prophylaxis Intervention: ambulation, LMWH Lines/Catheters IV Catheter Type (from Nrs): Saline Lock Urinary Cath still in place: Yes Reason Cath still needed: urinary retention Assessment/Plan Chief Complaint/Hosp Course 1. CHF, dyastolic exacerbation 2. COPD 3. Morbid obesity 4. Hypertension, controlled 5. Anemia 6. Hx of gallbladder stones 7. Former smoker 8. Hs of drug use Problems: Assessment/Plan 1. Telemetry service 2. Fluid restrictions 3. Dr Miramontes to see 4. Pain control HPI/ROS Admit Date/Time Admit Date/Time Feb 21, 2017 at 13:06 Hx of Present Illness This -[place] 46 yo female was transferred 02/21/2017 from [facility] per insurance purposes with CHF exacerbation. Known for hypertension, morbid obesity , hx of gallbladder stones. ROS Constitutional: other (hard to move), weight change Eyes: no complaints ENT: no complaints Respiratory: shortness of breath Gastrointestinal: pain (10) Genitourinary: no complaints Skin: no complaints PMH/Family/Social Past Medical History Medical History: diabetes, gallstones, high cholesterol, hypertension, urinary tract infection Past Surgical History Past Surgical Hx: no surgical history ( History of cholecystectomy, , and twice abdominal herniorrhaphy.), other ( History of cholecystectomy, C- section, and twice abdominal herniorrhaphy.) Family History Significant Family History: no pertinent family hx Social History Alcohol Use: none Smoking Status: Former smoker Drug Use: none Exam/Review of Systems Vital Signs Vitals Vital Signs Date Time Temp Pulse Resp B/P Pulse Ox O2 Delivery O2 Flow Rate FiO2 02/21/17 15:04 98.2 90 22 112/65 97 02/21/17 14:08 Nasal Cannula 3.0 Exam Constitutional: alert, oriented Psych: no complaints Head: normocephalic Eyes: nl conjunctiva ENMT: nl external ears & nose Neck: supple Respiratory: congested cough, crackles/rales, diminished breath sounds Cardiovascular: regular rate and rhythm Gastrointestinal: soft Genitourinary - Female: nl adnexae Musculoskeletal: nl extremities to inspection Extremities: pitting pedal edema 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 Skin: nl turgor Medications Medications Current Medications Aspirin (Halfprin) 81 mg DAILY PO ; Start 02/22/17 at 09:00 Furosemide (Lasix) 40 mg DAILY PO ; Start 02/22/17 at 09:00 Insulin Detemir (Levemir) 35 unit DAILY@08 SC ; Start 02/22/17 at 08:00 Levofloxacin (Levaquin) 500 mg DAILY@06 PO ; Start 02/22/17 at 06:00 Lisinopril (Zestril) 10 mg DAILY PO ; Start 02/22/17 at 09:00 Metoprolol Succinate (Toprol Xl) 12.5 mg DAILY PO ; Start 02/22/17 at 09:00 Diagnostic Test (Pha) (Accu-Chek) 1 ea 02 XX ; Start 02/22/17 at 02:00 Ondansetron HCl (Zofran Inj) 4 mg Q6H PRN IV NAUSEA AND/OR VOMITING; Start 02/21/17 at 15:00 Acetaminophen (Tylenol Tab) 650 mg Q6H PRN PO PAIN LEVEL 1-3 OR FEVER; Start 02/21/17 at 15:00 Acetaminophen (Tylenol Supp) 650 mg Q6H PRN [place] PAIN LEVEL 1-3 OR FEVER; Start 02/21/17 at 15:00 Docusate Sodium (Colace) 100 mg Q12H PRN PO CONSTIPATION; Start 02/21/17 at 15: 00 Magnesium Hydroxide (Milk Of Mag) 30 ml DAILY PRN PO CONSTIPATION; Start at 15:00 Bisacodyl (Dulcolax) 5 mg DAILY PRN PO CONSTIPATION; Start 02/21/17 at 15:00 Pantoprazole (Protonix Iv) 40 mg DAILY@06 IV ; Start 02/22/17 at 06:00 Enoxaparin Sodium (Lovenox) 40 mg DAILY SC ; Start 02/22/17 at 09:00 Miscellaneous Information 1 ea NOTE XX ; Start 02/21/17 at 15:00 Glucose (Glutose) 15 gm Q15M PRN PO DECREASED GLUCOSE; Start 02/21/17 at 15:00 Glucose (Glutose) 22.5 gm Q15M PRN PO DECREASED GLUCOSE; Start 02/21/17 at 15: 00 Dextrose (D50w Syringe) 25 ml Q15M PRN IV DECREASED GLUCOSE; Start 02/21/17 at 15:00 Dextrose (D50w Syringe) 50 ml Q15M PRN IV DECREASED GLUCOSE; Start 02/21/17 at 15:00 Glucagon (Glucagen) 1 mg Q15M PRN IM DECREASED GLUCOSE; Start 02/21/17 at 15:00 Glucose (Glutose) 15 gm Q15M PRN BUCCAL DECREASED GLUCOSE; Start 02/21/17 at 15 :00 Methylprednisolone (Medrol) 8 mg HS PO ; Start 02/22/17 at 21:00; Stop 02/22/17 at 21:01 Methylprednisolone (Medrol) 4 mg HS PO ; Start 02/23/17 at 21:00; Stop 02/25/17 at 21:01 Methylprednisolone (Medrol) 24 mg ONCE PO ; Start 02/21/17 at 15:00; Stop at 23:45 MELANIA LAMBERT Feb 21, 2017 15:32
[2017-02-21] MEDS: INSULIN ASPART [NOVOLOG] 3 ML PEN SC SCH ×2 (17:25→20:21)
[2017-02-21] MEDS: FUROSEMIDE 40 MG TAB PO SCH (17:26)
[2017-02-21] MEDS: ALBUTEROL/IPRATROPIUM (NEB) 3 ML AMP HHN SCH (20:35)
[2017-02-21] MEDS: HYDROmorphONE 0.5 MG/0.5 ML SYG IV PRN (20:55)
[2017-02-22] VITALS (13 sets, daily range): BP systolic 110–136; BP diastolic 56–78; PULSE 83–187; RESP 17–19
[2017-02-22] MEDS ORDERED: ACCU-CHEK XX SCH (02:00)
[2017-02-22] MEDS: ACCU-CHEK XX SCH (02:06)
[2017-02-22] MEDS: HYDROmorphONE 0.5 MG/0.5 ML SYG IV PRN ×4 (02:32→21:22)
--- NOTE | 2017-02-22 04:13 | CONS ---
DATE OF ADMISSION: 02/21/2017 DATE OF CONSULTATION: 02/21/2017 REASON FOR CONSULTATION: Congestive heart failure exacerbation. REQUESTING PHYSICIAN: Hitesh Henao MD HISTORY OF PRESENT ILLNESS: Ms. Beckett is a 46-year-old female with a history of cardiomyopathy with decreased left ventricular ejection fraction, last one approximately 30-35%, nonischemic by cat heterization October 2016, hypertension, dyslipidemia, substance abuse, COPD with recent stopping of to bacco intake, psychiatric disorder, who initially presented to an outside hospital with complaints o f worsening shortness of breath, symptoms consistent with orthopnea. At outside hospital, the patie nt underwent a chest x-ray revealing mild congestive heart failure and had stable vital signs and ne gative troponin. The patient was, thereafter, transferred to [facility] due to in surance reasons. Since arrival at [facility], initial blood pressure at 105/59, p ulse 78, respirations 16, temperature 98.2, saturating 97% on 3 liters. The patient's labs notable for a white count of 10.3, a hemoglobin of 11.1, platelet count of 236, sodium 142, potassium 4.0, c reatinine 0.8, BUN of 20, troponin negative, INR of 1. The patient's labs are [facility]. Of note, once again, at the outside hospital the patient had a D-dimer of 693, mild ly elevated BNP of 1194, magnesium 1.6, creatinine 0.7, BUN 15, sodium 138, potassium 4.9. Troponin negative. Additionally, the patient underwent an ABG noted by an outside hospital pulmonary consul t that revealed CO2 retention consistent with hypercarbic respiratory failure. The patient, at this time, continues to have mild shortness of breath, denies chest pain. PAST MEDICAL HISTORY: As above in HPI. MEDICATIONS CURRENTLY IN HOSPITAL 1. Toprol-XL 12.5 mg daily. 2. Zestril 10 mg daily. 3. Lasix 40 mg daily. 4. Aspirin 81 mg daily. 5. Solu-Medrol. 6. 5 mg daily. 7. DuoNeb. 8. Dilaudid p.r.n. 7. Tylenol p.r.n. 8. Zofran p.r.n. 9. Dulcolax p.r.n. ALLERGIES: NO KNOWN DRUG ALLERGIES. SOCIAL HISTORY: Remote tobacco, quit approximately 1 to 2 months. Social ETOH, no illicit drug use currently. FAMILY HISTORY: No history of sudden cardiac or early CAD. REVIEW OF SYSTEMS: As above in HPI. CONSTITUTIONAL: No fevers, chills. PULMONARY: Shortness of breath, COPD. CARDIOVASCULAR: Congestive heart failure, cardiomyopathy. GASTROINTESTINAL: No vomiting. GENITOURINARY: No hematuria. MUSCULOSKELETAL: Degenerative joint disease. PSYCHIATRIC: Positive psych disorder. NEUROLOGIC: No documented history of CVA. ENDOCRINE: Diabetes mellitus. PHYSICAL EXAMINATION: VITAL SIGNS: Temperature of 98.2, blood pressure 112/55, pulse 90, respiratory rate 22, saturating 97% on 3 liters. GENERAL: The patient is alert, awake, complaint of shortness of breath. NECK: JVP approximately 9 cm water. CHEST: Decreased breath sounds at the bases bilaterally. HEART: Regular rate and rhythm. Normal S1, S2, I/ systolic murmur, laterally displaced PMI. ABDOMEN: Positive bowel sounds, soft, obese. EXTREMITIES: Trace edema, 1+ pulses bilaterally posterior tibial. LABORATORIES: Pending from this hospital at this time. IMAGING STUDIES: Pending from this hospital at this time. ECG pending from this hospital at this time. IMPRESSION: 1. Congestive heart failure exacerbation, systolic, acute on-chronic by most recent echocardiogram, revealing an ejection fraction of 30% to 35%. 2. Hypertension, under reasonable control. 3. Cardiomyopathy, decreased left ventricular ejection fraction, last one approximately 30% to 35%. 4. Chronic obstructive pulmonary disease exacerbation. 5. Diabetes mellitus. 6. Increased brain natriuretic peptide consistent with the patient's congestive heart failure exace rbation. 7. Prior tobacco intake, quit recently. 8. History of substance abuse. RECOMMENDATIONS: 1. At this time, would maintain the patient on telemetry monitoring to follow rhythm and rate contr ol closely. 2. Would continue the patient's aspirin for prophylaxis against cardiovascular events. 3. Continue the patient's current beta rianna and afterload reduction with Zestril. 4. Continue patient's Lasix diuresis and will initiate the patient on Aldactone for neurohormonal m odulation in the setting of cardiomyopathy, decreased left ventricular ejection fraction, and class 3 to 4 symptoms. 4. Continue the patient's current steroids and bronchodilators. 5. Continue the patient's BiPAP as necessary. Thank you for allowing me to take part in the care of this patient. I will continue to follow along very closely with you. Further recommendations will be made as the patient progresses through her inpatient hospital clinical course. Dictated By: GAGAN KENNEDY/DEENA Conf#: [id number] DID#: [id number] CC: HITESH HENAO MD;*EndCC*
[2017-02-22] MEDS: FUROSEMIDE 40 MG TAB PO SCH ×2 (05:25→17:22)
[2017-02-22] MEDS: LEVOFLOXACIN 500 MG TAB PO SCH (05:25)
[2017-02-22] MEDS ORDERED: PANTOPRAZOLE 40 MG INJ IV SCH (06:00)
[2017-02-22] MEDS: METHYLPREDNISOLONE 4 MG TAB PO SCH ×3 (07:41→17:22)
[2017-02-22] MEDS: INSULIN ASPART [NOVOLOG] 3 ML PEN SC SCH ×4 (07:46→21:00)
[2017-02-22] MEDS: INSULIN DETEMIR [LEVEMIR] 3ML CART SC SCH (07:53)
[2017-02-22] MEDS: ALBUTEROL/IPRATROPIUM (NEB) 3 ML AMP HHN SCH ×3 (08:01→20:30)
[2017-02-22] MEDS: SPIRONOLACTONE 25 MG TAB PO SCH (08:43)
[2017-02-22] MEDS: ASPIRIN (EC) 81 MG TAB PO SCH (08:43)
[2017-02-22] MEDS: METOPROLOL (XL) 25 MG TAB PO SCH (08:43)
[2017-02-22] MEDS: LISINOPRIL 10 MG TAB PO SCH (08:44)
[2017-02-22] MEDS: ENOXAPARIN 40 MG/0.4 ML SYG SC SCH (08:45)
--- NOTE | 2017-02-22 08:57 | RADRPT ---
PROCEDURE: XR Chest. CLINICAL INDICATION: congestive heart failure TECHNIQUE: Single frontal view of the chest was obtained COMPARISON: 12/08/2016 FINDINGS: No pneumothorax. Small bilateral pleural effusions, left greater than right. Mild to moderate interstitial pulmonary edema. Stable enlarged cardiomediastinal silhouette. No acute osseous abnormality. IMPRESSION: Mild to moderate interstitial pulmonary edema with small bilateral pleural effusions, left greater t smith right. Superimposed infection to be determined clinically. RPTAT: EE Physician Toño Date Time Electronically viewed and signed by Brissa Davidson Physician on 02/22/2017 08:56 /
[2017-02-22] MEDS ORDERED: ENOXAPARIN 40 MG/0.4 ML SYG SC SCH (09:00)
[2017-02-22] MEDS ORDERED: FUROSEMIDE 40 MG TAB PO SCH (09:00)
--- NOTE | 2017-02-22 14:29 | PN ---
Date/Time of Note Date/Time of Note DATE: 02/22/17 TIME: 14:26 Assessment/Plan VTE Prophylaxis VTE Prophylaxis Intervention: LMWH Lines/Catheters IV Catheter Type (from Nrs): Saline Lock Urinary Cath still in place: Yes Reason Cath still needed: urinary retention Assessment/Plan Chief Complaint/Hosp Course 1. CHF, diastolic exacerbation 2. COPD 3. Morbid obesity 4. Hypertension, controlled 5. Anemia 6. Hx of gallbladder stones 7. Former smoker 8. Hs of drug use 9. S/p two hernia repair 10. Small bilateral pleural effusions Problems: Assessment/Plan 1. diuresis. 2. NPO for abdominal symptoms 3. dr Palumbo for consult Subjective 24 Hr Interval Summary Subjective hx not possible: pt non-verbal Eyes: no complaints Gastrointestinal: other (hernia pain), pain Exam/Review of Systems Vital Signs Vitals Vital Signs Date Time Temp Pulse Resp B/P Pulse Ox O2 Delivery O2 Flow Rate FiO2 02/22/17 12:37 94 02/22/17 11:36 98.4 18 136/78 95 02/22/17 08:30 Nasal Cannula 2.0 02/22/17 05:19 27 Intake and Output 02/21/17 02/21/17 02/22/17 15:00 23:00 07:00 Intake Total 300 ml 500 ml Output Total 200 ml 2600 ml Balance 100 ml -2100 ml Exam Constitutional: alert, oriented Head: atraumatic, normocephalic Eyes: nl conjunctiva ENMT: nl external ears & nose Neck: supple Respiratory: clear to auscultation Cardiovascular: regular rate and rhythm Gastrointestinal: distended, mass (midline hernia), soft Musculoskeletal: muscle weakness, range of motion (both knee decreased) Results Result Diagram: 02/22/17 0535 Results 24 hrs Laboratory Tests Test 02/21/17 17:23 02/21/17 20:17 02/22/17 02:04 02/22/17 05:35 Bedside Glucose 176 290 H 228 H Sodium Level 138 Potassium Level 4.5 Chloride Level 90 L Carbon Dioxide Level 38 H Anion Gap 15 Blood Urea Nitrogen 22 H Creatinine 0.78 Glucose Level 190 Calcium Level 8.8 Magnesium Level 1.5 L Troponin I < 0.012 Triglycerides Level 57 Cholesterol Level 154 LDL Cholesterol, Calculated 102 HDL Cholesterol 41 Cholesterol/HDL Ratio 3.7 Test 02/22/17 07:44 02/22/17 11:22 Bedside Glucose 187 177 Medications Medications Current Medications Aspirin (Halfprin) 81 mg DAILY PO Last administered on 02/22/17 08:43; Admin Dose 81 MG; Start 02/22/17 at 09:00 Insulin Detemir (Levemir) 35 unit DAILY@08 SC Last administered on 02/22/17 07 :53; Admin Dose 35 UNIT; Start 02/22/17 at 08:00 Levofloxacin (Levaquin) 500 mg DAILY@06 PO Last administered on 02/22/17 05:25 ; Admin Dose 500 MG; Start 02/22/17 at 06:00 Lisinopril (Zestril) 10 mg DAILY PO Last administered on 02/22/17 08:44; Admin Dose 10 MG; Start 02/22/17 at 09:00 Metoprolol Succinate (Toprol Xl) 12.5 mg DAILY PO Last administered on 08:43; Admin Dose 12.5 MG; Start 02/22/17 at 09:00 Diagnostic Test (Pha) (Accu-Chek) 1 ea 02 XX Last administered on 02/22/17 02: 06; Admin Dose 1 EA; Start 02/22/17 at 02:00 Ondansetron HCl (Zofran Inj) 4 mg Q6H PRN IV NAUSEA AND/OR VOMITING; Start 02/21/17 at 15:00 Acetaminophen (Tylenol Tab) 650 mg Q6H PRN PO PAIN LEVEL 1-3 OR FEVER; Start 02/21/17 at 15:00 Acetaminophen (Tylenol Supp) 650 mg Q6H PRN [place] PAIN LEVEL 1-3 OR FEVER; Start 02/21/17 at 15:00 Docusate Sodium (Colace) 100 mg Q12H PRN PO CONSTIPATION; Start 02/21/17 at 15: 00 Magnesium Hydroxide (Milk Of Mag) 30 ml DAILY PRN PO CONSTIPATION; Start at 15:00 Bisacodyl (Dulcolax) 5 mg DAILY PRN PO CONSTIPATION; Start 02/21/17 at 15:00 Pantoprazole (Protonix Iv) 40 mg DAILY@06 IV Last administered on 02/22/17 05: 25; Admin Dose 40 MG; Start 02/22/17 at 06:00 Enoxaparin Sodium (Lovenox) 40 mg DAILY SC Last administered on 02/22/17 08:45 ; Admin Dose 40 MG; Start 02/22/17 at 09:00 Miscellaneous Information 1 ea NOTE XX ; Start 02/21/17 at 15:00 Glucose (Glutose) 15 gm Q15M PRN PO DECREASED GLUCOSE; Start 02/21/17 at 15:00 Glucose (Glutose) 22.5 gm Q15M PRN PO DECREASED GLUCOSE; Start 02/21/17 at 15: 00 Dextrose (D50w Syringe) 25 ml Q15M PRN IV DECREASED GLUCOSE; Start 02/21/17 at 15:00 Dextrose (D50w Syringe) 50 ml Q15M PRN IV DECREASED GLUCOSE; Start 02/21/17 at 15:00 Glucagon (Glucagen) 1 mg Q15M PRN IM DECREASED GLUCOSE; Start 02/21/17 at 15:00 Glucose (Glutose) 15 gm Q15M PRN BUCCAL DECREASED GLUCOSE; Start 02/21/17 at 15 :00 Methylprednisolone (Medrol) 8 mg HS PO ; Start 02/22/17 at 21:00; Stop 02/22/17 at 21:01 Methylprednisolone (Medrol) 4 mg HS PO ; Start 02/23/17 at 21:00; Stop 02/25/17 at 21:01 Spironolactone (Aldactone) 25 mg DAILY PO Last administered on 02/22/17 08:43 ; Admin Dose 25 MG; Start 02/22/17 at 09:00 Hydromorphone HCl 0.5 mg 0.5 mg Q4 PRN IV SEVERE PAIN LEVEL 7-10 Last administered on 02/22/17 13:03; Admin Dose 0.5 MG; Start 02/21/17 at 21:00 Magnesium Sulfate (Magnesium Sulfate 2 Gm/50 ml) 50 ml @ 25 mls/hr ONCE ONCE IVPB ; Start 02/22/17 at 14:30; Stop 02/22/17 at 16:29 MELANIA LAMBERT Feb 22, 2017 14:29
[2017-02-22] MEDS ORDERED: MAGNESIUM SULFATE 2 GM/50 ML 50 ML IVPB ONE (14:30)
--- NOTE | 2017-02-22 16:08 | CONS ---
Date/Time of Note Date/Time of Note DATE: 02/22/17 TIME: 16:04 Assessment/Plan Assessment/Plan Additional Assessment/Plan Acute exacerbation of systolic heart failure Hypertension Chronic obstructive pulmonary disease exacerbation. Diabetes mellitus. tobacco abuse History of substance abuse. Morbid obesity JAYDEN Continue Lasix Continue Metoprolol Continue Lisinopril Continue Aldactone Replete Magnesium Continue Nocturnal Bipap Continue Methylprednisone Consultation Date/Type/Reason Admit Date/Time Feb 21, 2017 at 13:06 Eyes: no complaints ENT: no complaints Respiratory: shortness of breath Gastrointestinal: other (hernia pain), pain Genitourinary: no complaints Skin: no complaints Psychological: no complaints Past Medical History Medical History: diabetes, gallstones, high cholesterol, hypertension, urinary tract infection Past Surgical History Past Surgical Hx: no surgical history ( History of cholecystectomy, , and twice abdominal herniorrhaphy.), other ( History of cholecystectomy, C- section, and twice abdominal herniorrhaphy.) Social History Alcohol Use: none Smoking Status: Former smoker Drug Use: none Exam/Review of Systems Vital Signs Vitals Vital Signs Date Time Temp Pulse Resp B/P Pulse Ox O2 Delivery O2 Flow Rate FiO2 02/22/17 15:41 98.3 88 18 114/67 99 02/22/17 08:30 Nasal Cannula 2.0 02/22/17 05:19 27 Intake and Output 02/21/17 02/21/17 02/22/17 15:00 23:00 07:00 Intake Total 300 ml 500 ml Output Total 200 ml 2600 ml Balance 100 ml -2100 ml Exam Constitutional: alert, oriented, well developed Head: atraumatic, normocephalic Neck: non-tender, supple Respiratory: diminished breath sounds Cardiovascular: regular rate and rhythm Gastrointestinal: nl liver, spleen, non-tender, soft Extremities: normal pulses, pitting pedal edema Results Result Diagram: 02/22/17 0535 Results 24 hrs Laboratory Tests Test 02/21/17 17:23 02/21/17 20:17 02/22/17 02:04 02/22/17 05:35 Bedside Glucose 176 290 H 228 H Sodium Level 138 Potassium Level 4.5 Chloride Level 90 L Carbon Dioxide Level 38 H Anion Gap 15 Blood Urea Nitrogen 22 H Creatinine 0.78 Glucose Level 190 Calcium Level 8.8 Magnesium Level 1.5 L Troponin I < 0.012 Triglycerides Level 57 Cholesterol Level 154 LDL Cholesterol, Calculated 102 HDL Cholesterol 41 Cholesterol/HDL Ratio 3.7 Test 02/22/17 07:44 02/22/17 11:22 Bedside Glucose 187 177 Medications Medications Current Medications Aspirin (Halfprin) 81 mg DAILY PO Last administered on 02/22/17 08:43; Admin Dose 81 MG; Start 02/22/17 at 09:00 Insulin Detemir (Levemir) 35 unit DAILY@08 SC Last administered on 02/22/17 07 :53; Admin Dose 35 UNIT; Start 02/22/17 at 08:00 Levofloxacin (Levaquin) 500 mg DAILY@06 PO Last administered on 02/22/17 05:25 ; Admin Dose 500 MG; Start 02/22/17 at 06:00 Lisinopril (Zestril) 10 mg DAILY PO Last administered on 02/22/17 08:44; Admin Dose 10 MG; Start 02/22/17 at 09:00 Metoprolol Succinate (Toprol Xl) 12.5 mg DAILY PO Last administered on 08:43; Admin Dose 12.5 MG; Start 02/22/17 at 09:00 Diagnostic Test (Pha) (Accu-Chek) 1 ea 02 XX Last administered on 02/22/17 02: 06; Admin Dose 1 EA; Start 02/22/17 at 02:00 Ondansetron HCl (Zofran Inj) 4 mg Q6H PRN IV NAUSEA AND/OR VOMITING; Start 02/21/17 at 15:00 Acetaminophen (Tylenol Tab) 650 mg Q6H PRN PO PAIN LEVEL 1-3 OR FEVER; Start 02/21/17 at 15:00 Acetaminophen (Tylenol Supp) 650 mg Q6H PRN [place] PAIN LEVEL 1-3 OR FEVER; Start 02/21/17 at 15:00 Docusate Sodium (Colace) 100 mg Q12H PRN PO CONSTIPATION; Start 02/21/17 at 15: 00 Magnesium Hydroxide (Milk Of Mag) 30 ml DAILY PRN PO CONSTIPATION; Start at 15:00 Bisacodyl (Dulcolax) 5 mg DAILY PRN PO CONSTIPATION; Start 02/21/17 at 15:00 Pantoprazole (Protonix Iv) 40 mg DAILY@06 IV Last administered on 02/22/17 05: 25; Admin Dose 40 MG; Start 02/22/17 at 06:00 Enoxaparin Sodium (Lovenox) 40 mg DAILY SC Last administered on 02/22/17 08:45 ; Admin Dose 40 MG; Start 02/22/17 at 09:00 Miscellaneous Information 1 ea NOTE XX ; Start 02/21/17 at 15:00 Glucose (Glutose) 15 gm Q15M PRN PO DECREASED GLUCOSE; Start 02/21/17 at 15:00 Glucose (Glutose) 22.5 gm Q15M PRN PO DECREASED GLUCOSE; Start 02/21/17 at 15: 00 Dextrose (D50w Syringe) 25 ml Q15M PRN IV DECREASED GLUCOSE; Start 02/21/17 at 15:00 Dextrose (D50w Syringe) 50 ml Q15M PRN IV DECREASED GLUCOSE; Start 02/21/17 at 15:00 Glucagon (Glucagen) 1 mg Q15M PRN IM DECREASED GLUCOSE; Start 02/21/17 at 15:00 Glucose (Glutose) 15 gm Q15M PRN BUCCAL DECREASED GLUCOSE; Start 02/21/17 at 15 :00 Methylprednisolone (Medrol) 8 mg HS PO ; Start 02/22/17 at 21:00; Stop 02/22/17 at 21:01 Methylprednisolone (Medrol) 4 mg HS PO ; Start 02/23/17 at 21:00; Stop 02/25/17 at 21:01 Spironolactone (Aldactone) 25 mg DAILY PO Last administered on 02/22/17 08:43 ; Admin Dose 25 MG; Start 02/22/17 at 09:00 Hydromorphone HCl 0.5 mg 0.5 mg Q4 PRN IV SEVERE PAIN LEVEL 7-10 Last administered on 02/22/17 13:03; Admin Dose 0.5 MG; Start 02/21/17 at 21:00 Magnesium Sulfate (Magnesium Sulfate 2 Gm/50 ml) 50 ml @ 25 mls/hr ONCE ONCE IVPB Last administered on 02/22/17 14:38; Admin Dose 25 MLS/HR; Start at 14:30; Stop 02/22/17 at 16:29 BENITO CHAN M.D. 4, 2017 16:08
[2017-02-22] MEDS ORDERED: OXYCODONE/ACETAMINOPHEN (5/325) TAB PO PRN (16:30)
[2017-02-22] MEDS ORDERED: METHYLPREDNISOLONE 4 MG TAB PO SCH (21:00)
[2017-02-23] VITALS (17 sets, daily range): BP systolic 112–132; BP diastolic 59–80; PULSE 80–110; RESP 18–20
--- NOTE | 2017-02-23 00:51 | CONS ---
DATE OF ADMISSION: 02/21/2017 DATE OF CONSULTATION: 02/22/2017 TYPE OF CONSULTATION: Pulmonary. REASON FOR CONSULTATION: Shortness of breath. HISTORY OF PRESENT ILLNESS: Briefly, this is a 46-year-old lady with history of cardiomyopathy with a depressed left ventricular ejection fraction deemed to be of nonischemic origin, hypertension, hy perlipidemia, prior smoking history, morbid obesity, who states that at baseline, she has significan t dyspnea on even minimal exertion at home. She now presents with increasing dyspnea with acute on chronic, hypercapnic/hypoxemic respiratory insufficiency. PAST MEDICAL HISTORY: As per HPI. MEDICATIONS: See JUN. ALLERGIES: NO KNOWN DRUG ALLERGIES. SOCIAL HISTORY: Remote tobacco, quit a few months previously. No alcohol or illicit drug use. FAMILY HISTORY: Noncontributory. REVIEW OF SYSTEMS: As noted in the HPI. PHYSICAL EXAMINATION: VITAL SIGNS: Heart rate is 88, blood pressure is 114/67, oxygen saturation is 99% on 2 liters nasal cannula. HEENT: Normocephalic, atraumatic. NECK: Supple, no thyromegaly. Oropharynx is crowded with a large neck. CARDIOVASCULAR: Distant S1 and S2 with no murmurs, rubs or gallops auscultated. CHEST: There are bibasilar crackles. ABDOMEN: Morbidly obese but soft and nontender. EXTREMITIES: There is 1+ lower extremity edema. LABORATORY DATA: Bicarb is 38. BUN is 22, creatinine is 0.78. Chest x-ray shows cardiomegaly and evidence of pulmonary venous congestion. IMPRESSION: Acute on chronic hypoxemic/hypercapnic respiratory insufficiency in a morbidly obese pa tient with nonischemic cardiomyopathy with reduced ejection fraction as well as coexisting obesity h ypoventilation syndrome. RECOMMENDATIONS: 1. Continuation of diuresis with following I's and O's and daily weights closely. 2. Nocturnal BiPAP. 3. Would obtain a baseline ABG to confirm her likely obesity hypoventilation syndrome. 4. Obtain TSH. 5. Will need a sleep study as an outpatient and will need BiPAP for home as well as sleep medicine followup. Dictated By: HUAN OWEN MD NK/NTS Conf#: [id number] DID#: [id number] CC: MITA HENAO MD; SLOANE FRASER MD;*EndCC*
[2017-02-23] MEDS: ACCU-CHEK XX SCH (01:44)
[2017-02-23] MEDS: HYDROmorphONE 0.5 MG/0.5 ML SYG IV PRN ×4 (02:17→22:05)
[2017-02-23] MEDS: METHYLPREDNISOLONE 4 MG TAB PO SCH ×4 (06:18→20:32)
[2017-02-23] MEDS: FUROSEMIDE 40 MG TAB PO SCH ×2 (06:18→17:42)
[2017-02-23] MEDS: LEVOFLOXACIN 500 MG TAB PO SCH (06:18)
[2017-02-23] MEDS: PANTOPRAZOLE (EC) 40 MG TAB PO SCH (06:18)
[2017-02-23] MEDS: INSULIN ASPART [NOVOLOG] 3 ML PEN SC SCH ×4 (07:51→20:33)
[2017-02-23] MEDS: INSULIN DETEMIR [LEVEMIR] 3ML CART SC SCH (08:11)
[2017-02-23] MEDS: ASPIRIN (EC) 81 MG TAB PO SCH (08:22)
[2017-02-23] MEDS: LISINOPRIL 10 MG TAB PO SCH (08:22)
[2017-02-23] MEDS: SPIRONOLACTONE 25 MG TAB PO SCH (08:22)
[2017-02-23] MEDS: METOPROLOL (XL) 25 MG TAB PO SCH (08:23)
[2017-02-23] MEDS: ENOXAPARIN 40 MG/0.4 ML SYG SC SCH (08:24)
[2017-02-23] MEDS: ALBUTEROL/IPRATROPIUM (NEB) 3 ML AMP HHN SCH ×3 (09:24→19:16)
--- NOTE | 2017-02-23 13:29 | CONS ---
Date/Time of Note Date/Time of Note DATE: 02/23/17 TIME: 13:27 Assessment/Plan Assessment/Plan Additional Assessment/Plan Acute exacerbation of systolic heart failure Chronic obstructive pulmonary disease exacerbation. Hypertension Diabetes mellitus. tobacco abuse History of substance abuse. Morbid obesity JAYDEN Hemodynamically stable Continue Lasix Continue Metoprolol Continue Lisinopril Continue Aldactone Replete Magnesium Continue Nocturnal Bipap Continue Methylprednisone Consultation Date/Type/Reason Admit Date/Time Feb 21, 2017 at 13:06 Initial Consult Date Exam/Review of Systems Vital Signs Vitals Vital Signs Date Time Temp Pulse Resp B/P Pulse Ox O2 Delivery O2 Flow Rate FiO2 02/23/17 12:24 86 02/23/17 11:59 97.8 18 132/77 98 02/23/17 09:29 2.0 02/23/17 09:27 Nasal Cannula 02/23/17 05:55 27 Intake and Output 02/22/17 02/22/17 02/23/17 15:00 23:00 07:00 Intake Total 50 ml 500 ml Balance 50 ml 500 ml Exam Constitutional: alert, oriented Head: atraumatic, normocephalic Neck: non-tender, supple Respiratory: diminished breath sounds Cardiovascular: regular rate and rhythm Gastrointestinal: nl liver, spleen, non-tender, soft Extremities: pitting pedal edema Results Result Diagram: 02/23/17 0602 02/23/17 0602 Results 24 hrs Laboratory Tests Test 02/22/17 17:20 02/22/17 21:04 02/23/17 05:00 02/23/17 06:02 Bedside Glucose 174 159 Blood Gas Specimen Source Blood arterial Arterial Blood Date Drawn 02/23/2017 5:15:53 AM Arterial Blood pH (Temp corrected) 7.406 Arterial Blood pCO2 (Temp correct) 64.1 H Arterial Blood pO2 (Temp corrected) 107.9 H Arterial Blood HCO3 39.4 H Arterial Blood Base Excess 11.9 H Arterial Blood Oxygen Saturation 98.0 Justice Test ACCEPTAB Arterial Blood Gas Puncture Site Right Radial Arterial Blood Carboxyhemoglobin 0.7 Arterial Blood Methemoglobin 0.3 Blood Gas A-a O2 Differential 30.7 H Oxyhemoglobin Percent 97.0 Total Hemoglobin 13.9 Blood Gas Temperature 37.0 Blood Gas Respiration Rate 14.0 Blood Gas Actual Respiration Rate 18 Blood Gas Modality MASK - BIPAP FiO2 30.0 Blood Gas IPAP/EPAP Ratio 02/09 Blood Gas Notified Whom Blood Gas Notified Time 02/23/2017 5:42:03 AM White Blood Count 11.4 H Red Blood Count 4.39 Hemoglobin 11.5 L Hematocrit 38.1 Mean Corpuscular Volume 86.8 Mean Corpuscular Hemoglobin 26.2 L Mean Corpuscular Hemoglobin Concent 30.2 L Red Cell Distribution Width 18.0 H Platelet Count 204 Mean Platelet Volume 11.8 H Neutrophils % 67.7 Lymphocytes % 25.0 Monocytes % 6.4 Eosinophils % 0.5 Basophils % 0.2 Nucleated Red Blood Cells % 0.0 Neutrophils # 7.7 H Lymphocytes # 2.9 Monocytes # 0.7 Eosinophils # 0.1 Basophils # 0.0 Nucleated Red Blood Cells # 0.0 Sodium Level 138 Potassium Level 4.1 Chloride Level 90 L Carbon Dioxide Level 40 H Anion Gap 12 Blood Urea Nitrogen 24 H Creatinine 0.77 Glucose Level 109 # Hemoglobin A1c 8.3 H Calcium Level 8.5 Thyroid Stimulating Hormone (TSH) 1.960 Free Thyroxine Index 2.48 Thyroxine (T4) 5.8 Triiodothyronine (T3) Uptake 42.8 H Test 02/23/17 07:50 02/23/17 11:31 Bedside Glucose 113 103 Medications Medications Current Medications Aspirin (Halfprin) 81 mg DAILY PO Last administered on 02/23/17 08:22; Admin Dose 81 MG; Start 02/22/17 at 09:00 Insulin Detemir (Levemir) 35 unit DAILY@08 SC Last administered on 02/23/17 08 :11; Admin Dose 35 UNIT; Start 02/22/17 at 08:00 Levofloxacin (Levaquin) 500 mg DAILY@06 PO Last administered on 02/23/17 06:18 ; Admin Dose 500 MG; Start 02/22/17 at 06:00 Lisinopril (Zestril) 10 mg DAILY PO Last administered on 02/23/17 08:22; Admin Dose 10 MG; Start 02/22/17 at 09:00 Metoprolol Succinate (Toprol Xl) 12.5 mg DAILY PO Last administered on 08:23; Admin Dose 12.5 MG; Start 02/22/17 at 09:00 Diagnostic Test (Pha) (Accu-Chek) 1 ea 02 XX Last administered on 02/22/17 02: 06; Admin Dose 1 EA; Start 02/22/17 at 02:00 Ondansetron HCl (Zofran Inj) 4 mg Q6H PRN IV NAUSEA AND/OR VOMITING; Start 02/21/17 at 15:00 Acetaminophen (Tylenol Tab) 650 mg Q6H PRN PO PAIN LEVEL 1-3 OR FEVER; Start 02/21/17 at 15:00 Acetaminophen (Tylenol Supp) 650 mg Q6H PRN [place] PAIN LEVEL 1-3 OR FEVER; Start 02/21/17 at 15:00 Docusate Sodium (Colace) 100 mg Q12H PRN PO CONSTIPATION; Start 02/21/17 at 15: 00 Magnesium Hydroxide (Milk Of Mag) 30 ml DAILY PRN PO CONSTIPATION; Start at 15:00 Bisacodyl (Dulcolax) 5 mg DAILY PRN PO CONSTIPATION; Start 02/21/17 at 15:00 Enoxaparin Sodium (Lovenox) 40 mg DAILY SC Last administered on 02/23/17 08:24 ; Admin Dose 40 MG; Start 02/22/17 at 09:00 Miscellaneous Information 1 ea NOTE XX ; Start 02/21/17 at 15:00 Glucose (Glutose) 15 gm Q15M PRN PO DECREASED GLUCOSE; Start 02/21/17 at 15:00 Glucose (Glutose) 22.5 gm Q15M PRN PO DECREASED GLUCOSE; Start 02/21/17 at 15: 00 Dextrose (D50w Syringe) 25 ml Q15M PRN IV DECREASED GLUCOSE; Start 02/21/17 at 15:00 Dextrose (D50w Syringe) 50 ml Q15M PRN IV DECREASED GLUCOSE; Start 02/21/17 at 15:00 Glucagon (Glucagen) 1 mg Q15M PRN IM DECREASED GLUCOSE; Start 02/21/17 at 15:00 Glucose (Glutose) 15 gm Q15M PRN BUCCAL DECREASED GLUCOSE; Start 02/21/17 at 15 :00 Methylprednisolone (Medrol) 4 mg HS PO ; Start 02/23/17 at 21:00; Stop 02/25/17 at 21:01 Spironolactone (Aldactone) 25 mg DAILY PO Last administered on 02/23/17 08:22 ; Admin Dose 25 MG; Start 11/4/17 at 09:00 Hydromorphone HCl (Dilaudid) 0.5 mg Q4 PRN IV SEVERE PAIN LEVEL 7-10 Last administered on 02/23/17 08:22; Admin Dose 0.5 MG; Start 02/21/17 at 21:00 Oxycodone/ Acetaminophen (Percocet (5/ 325)) 1 tab Q6 PRN PO PAIN; Start at 16:30 Pantoprazole (Protonix Tab) 40 mg DAILY@06 PO Last administered on 02/23/17 06 :18; Admin Dose 40 MG; Start 02/23/17 at 06:00 BENITO CHAN M.D. Feb 23, 2017 13:29
--- NOTE | 2017-02-23 14:17 | PN ---
Date/Time of Note Date/Time of Note DATE: 02/23/17 TIME: 14:16 Assessment/Plan VTE Prophylaxis VTE Prophylaxis Intervention: other Lines/Catheters IV Catheter Type (from Nrs): Saline Lock Urinary Cath still in place: Yes Reason Cath still needed: other (indicate) Assessment/Plan Chief Complaint/Hosp Course copd chf htn obesity plan lasix diamox Problems: Subjective 24 Hr Interval Summary Respiratory: shortness of breath (better) Exam/Review of Systems Vital Signs Vitals Vital Signs Date Time Temp Pulse Resp B/P Pulse Ox O2 Delivery O2 Flow Rate FiO2 02/23/17 13:43 93 2.0 02/23/17 13:42 89 20 Nasal Cannula 02/23/17 11:59 97.8 132/77 02/23/17 05:55 27 Intake and Output 02/22/17 02/22/17 02/23/17 15:00 23:00 07:00 Intake Total 50 ml 500 ml Balance 50 ml 500 ml Exam Neck: supple Respiratory: diminished breath sounds Cardiovascular: regular rate and rhythm Gastrointestinal: bowel sounds (+), soft Extremities: edema (+) Results Result Diagram: 02/23/17 0602 02/23/17 0602 Results 24 hrs Laboratory Tests Test 02/22/17 17:20 02/22/17 21:04 02/23/17 05:00 02/23/17 06:02 Bedside Glucose 174 159 Blood Gas Specimen Source Blood arterial Arterial Blood Date Drawn 02/23/2017 5:15:53 AM Arterial Blood pH (Temp corrected) 7.406 Arterial Blood pCO2 (Temp correct) 64.1 H Arterial Blood pO2 (Temp corrected) 107.9 H Arterial Blood HCO3 39.4 H Arterial Blood Base Excess 11.9 H Arterial Blood Oxygen Saturation 98.0 Justice Test ACCEPTAB Arterial Blood Gas Puncture Site Right Radial Arterial Blood Carboxyhemoglobin 0.7 Arterial Blood Methemoglobin 0.3 Blood Gas A-a O2 Differential 30.7 H Oxyhemoglobin Percent 97.0 Total Hemoglobin 13.9 Blood Gas Temperature 37.0 Blood Gas Respiration Rate 14.0 Blood Gas Actual Respiration Rate 18 Blood Gas Modality MASK - BIPAP FiO2 30.0 Blood Gas IPAP/EPAP Ratio 02/09 Blood Gas Notified Whom Blood Gas Notified Time 02/23/2017 5:42:03 AM White Blood Count 11.4 H Red Blood Count 4.39 Hemoglobin 11.5 L Hematocrit 38.1 Mean Corpuscular Volume 86.8 Mean Corpuscular Hemoglobin 26.2 L Mean Corpuscular Hemoglobin Concent 30.2 L Red Cell Distribution Width 18.0 H Platelet Count 204 Mean Platelet Volume 11.8 H Neutrophils % 67.7 Lymphocytes % 25.0 Monocytes % 6.4 Eosinophils % 0.5 Basophils % 0.2 Nucleated Red Blood Cells % 0.0 Neutrophils # 7.7 H Lymphocytes # 2.9 Monocytes # 0.7 Eosinophils # 0.1 Basophils # 0.0 Nucleated Red Blood Cells # 0.0 Sodium Level 138 Potassium Level 4.1 Chloride Level 90 L Carbon Dioxide Level 40 H Anion Gap 12 Blood Urea Nitrogen 24 H Creatinine 0.77 Glucose Level 109 # Hemoglobin A1c 8.3 H Calcium Level 8.5 Thyroid Stimulating Hormone (TSH) 1.960 Free Thyroxine Index 2.48 Thyroxine (T4) 5.8 Triiodothyronine (T3) Uptake 42.8 H Test 02/23/17 07:50 02/23/17 11:31 Bedside Glucose 113 103 Medications Medications Current Medications Aspirin (Halfprin) 81 mg DAILY PO Last administered on 02/23/17 08:22; Admin Dose 81 MG; Start 02/22/17 at 09:00 Insulin Detemir (Levemir) 35 unit DAILY@08 SC Last administered on 02/23/17 08 :11; Admin Dose 35 UNIT; Start 02/22/17 at 08:00 Levofloxacin (Levaquin) 500 mg DAILY@06 PO Last administered on 02/23/17 06:18 ; Admin Dose 500 MG; Start 02/22/17 at 06:00 Lisinopril (Zestril) 10 mg DAILY PO Last administered on 02/23/17 08:22; Admin Dose 10 MG; Start 02/22/17 at 09:00 Metoprolol Succinate (Toprol Xl) 12.5 mg DAILY PO Last administered on 08:23; Admin Dose 12.5 MG; Start 02/22/17 at 09:00 Diagnostic Test (Pha) (Accu-Chek) 1 ea 02 XX Last administered on 02/22/17 02: 06; Admin Dose 1 EA; Start 02/22/17 at 02:00 Ondansetron HCl (Zofran Inj) 4 mg Q6H PRN IV NAUSEA AND/OR VOMITING; Start 02/21/17 at 15:00 Acetaminophen (Tylenol Tab) 650 mg Q6H PRN PO PAIN LEVEL 1-3 OR FEVER; Start 02/21/17 at 15:00 Acetaminophen (Tylenol Supp) 650 mg Q6H PRN OR PAIN LEVEL 1-3 OR FEVER; Start 02/21/17 at 15:00 Docusate Sodium (Colace) 100 mg Q12H PRN PO CONSTIPATION; Start 02/21/17 at 15: 00 Magnesium Hydroxide (Milk Of Mag) 30 ml DAILY PRN PO CONSTIPATION; Start at 15:00 Bisacodyl (Dulcolax) 5 mg DAILY PRN PO CONSTIPATION; Start 02/21/17 at 15:00 Enoxaparin Sodium (Lovenox) 40 mg DAILY SC Last administered on 02/23/17 08:24 ; Admin Dose 40 MG; Start 02/22/17 at 09:00 Miscellaneous Information 1 ea NOTE XX ; Start 02/21/17 at 15:00 Glucose (Glutose) 15 gm Q15M PRN PO DECREASED GLUCOSE; Start 02/21/17 at 15:00 Glucose (Glutose) 22.5 gm Q15M PRN PO DECREASED GLUCOSE; Start 02/21/17 at 15: 00 Dextrose (D50w Syringe) 25 ml Q15M PRN IV DECREASED GLUCOSE; Start 02/21/17 at 15:00 Dextrose (D50w Syringe) 50 ml Q15M PRN IV DECREASED GLUCOSE; Start 02/21/17 at 15:00 Glucagon (Glucagen) 1 mg Q15M PRN IM DECREASED GLUCOSE; Start 02/21/17 at 15:00 Glucose (Glutose) 15 gm Q15M PRN BUCCAL DECREASED GLUCOSE; Start 02/21/17 at 15 :00 Methylprednisolone (Medrol) 4 mg HS PO ; Start 02/23/17 at 21:00; Stop 02/25/17 at 21:01 Spironolactone (Aldactone) 25 mg DAILY PO Last administered on 02/23/17 08:22 ; Admin Dose 25 MG; Start 02/22/17 at 09:00 Hydromorphone HCl (Dilaudid) 0.5 mg Q4 PRN IV SEVERE PAIN LEVEL 7-10 Last administered on 02/23/17 08:22; Admin Dose 0.5 MG; Start 02/21/17 at 21:00 Oxycodone/ Acetaminophen (Percocet (5/ 325)) 1 tab Q6 PRN PO PAIN; Start at 16:30 Pantoprazole (Protonix Tab) 40 mg DAILY@06 PO Last administered on 02/23/17t 06 :18; Admin Dose 40 MG; Start 02/23/17 at 06:00 MITA HENAO MD Feb 23, 2017 14:17
--- NOTE | 2017-02-23 16:10 | CONS ---
Date/Time of Note Date/Time of Note DATE: 02/23/17 TIME: 16:08 Consult Date/Type/Reason Admit Date/Time Feb 21, 2017 at 13:06 Initial Consult Date Type of Consultation: Pulm Subjective Feeling a bit less dyspneic Objective Vital Signs Date Time Temp Pulse Resp B/P Pulse Ox O2 Delivery O2 Flow Rate FiO2 02/23/17 15:56 98.1 93 18 120/80 99 02/23/17 13:43 2.0 02/23/17 13:42 Nasal Cannula 02/23/17 05:55 27 Intake and Output 02/22/17 02/22/17 02/23/17 15:00 23:00 07:00 Intake Total 50 ml 500 ml Balance 50 ml 500 ml Exam NECK: Supple, no thyromegaly. Oropharynx is crowded with a large neck. CARDIOVASCULAR: Distant S1 and S2 with no murmurs, rubs or gallops auscultated. CHEST: bibasilar crackles. ABDOMEN: Morbidly obese but soft and nontender. EXTREMITIES: 1+ lower extremity edema. Results/Medications Result Diagram: 02/23/17 0602 02/23/17 06 Results 24 hrs Laboratory Tests Test 02/22/17 17:20 02/22/17 21:04 02/23/17 05:00 02/23/17 06:02 Bedside Glucose 174 159 Blood Gas Specimen Source Blood arterial Arterial Blood Date Drawn 02/23/2017 5:15:53 AM Arterial Blood pH (Temp corrected) 7.406 Arterial Blood pCO2 (Temp correct) 64.1 H Arterial Blood pO2 (Temp corrected) 107.9 H Arterial Blood HCO3 39.4 H Arterial Blood Base Excess 11.9 H Arterial Blood Oxygen Saturation 98.0 Justice Test ACCEPTAB Arterial Blood Gas Puncture Site Right Radial Arterial Blood Carboxyhemoglobin 0.7 Arterial Blood Methemoglobin 0.3 Blood Gas A-a O2 Differential 30.7 H Oxyhemoglobin Percent 97.0 Total Hemoglobin 13.9 Blood Gas Temperature 37.0 Blood Gas Respiration Rate 14.0 Blood Gas Actual Respiration Rate 18 Blood Gas Modality MASK - BIPAP FiO2 30.0 Blood Gas IPAP/EPAP Ratio 02/09 Blood Gas Notified Whom Blood Gas Notified Time 02/23/2017 5:42:03 AM White Blood Count 11.4 H Red Blood Count 4.39 Hemoglobin 11.5 L Hematocrit 38.1 Mean Corpuscular Volume 86.8 Mean Corpuscular Hemoglobin 26.2 L Mean Corpuscular Hemoglobin Concent 30.2 L Red Cell Distribution Width 18.0 H Platelet Count 204 Mean Platelet Volume 11.8 H Neutrophils % 67.7 Lymphocytes % 25.0 Monocytes % 6.4 Eosinophils % 0.5 Basophils % 0.2 Nucleated Red Blood Cells % 0.0 Neutrophils # 7.7 H Lymphocytes # 2.9 Monocytes # 0.7 Eosinophils # 0.1 Basophils # 0.0 Nucleated Red Blood Cells # 0.0 Sodium Level 138 Potassium Level 4.1 Chloride Level 90 L Carbon Dioxide Level 40 H Anion Gap 12 Blood Urea Nitrogen 24 H Creatinine 0.77 Glucose Level 109 # Hemoglobin A1c 8.3 H Calcium Level 8.5 Thyroid Stimulating Hormone (TSH) 1.960 Free Thyroxine Index 2.48 Thyroxine (T4) 5.8 Triiodothyronine (T3) Uptake 42.8 H Test 02/23/17 07:50 02/23/17 11:31 Bedside Glucose 113 103 Medications Current Medications Aspirin (Halfprin) 81 mg DAILY PO Last administered on 02/23/17 08:22; Admin Dose 81 MG; Start 02/22/17 at 09:00 Insulin Detemir (Levemir) 35 unit DAILY@08 SC Last administered on 02/23/17 08 :11; Admin Dose 35 UNIT; Start 02/22/17 at 08:00 Levofloxacin (Levaquin) 500 mg DAILY@06 PO Last administered on 02/23/17 06:18 ; Admin Dose 500 MG; Start 02/22/17 at 06:00 Lisinopril (Zestril) 10 mg DAILY PO Last administered on 02/23/17 08:22; Admin Dose 10 MG; Start 02/22/17 at 09:00 Metoprolol Succinate (Toprol Xl) 12.5 mg DAILY PO Last administered on 08:23; Admin Dose 12.5 MG; Start 02/22/17 at 09:00 Diagnostic Test (Pha) (Accu-Chek) 1 ea 02 XX Last administered on 02/22/17 02: 06; Admin Dose 1 EA; Start 02/22/17 at 02:00 Ondansetron HCl (Zofran Inj) 4 mg Q6H PRN IV NAUSEA AND/OR VOMITING; Start 02/21/17 at 15:00 Acetaminophen (Tylenol Tab) 650 mg Q6H PRN PO PAIN LEVEL 1-3 OR FEVER; Start 02/21/17 at 15:00 Acetaminophen (Tylenol Supp) 650 mg Q6H PRN [place] PAIN LEVEL 1-3 OR FEVER; Start 02/21/17 at 15:00 Docusate Sodium (Colace) 100 mg Q12H PRN PO CONSTIPATION; Start 02/21/17 at 15: 00 Magnesium Hydroxide (Milk Of Mag) 30 ml DAILY PRN PO CONSTIPATION; Start at 15:00 Bisacodyl (Dulcolax) 5 mg DAILY PRN PO CONSTIPATION; Start 02/21/17 at 15:00 Enoxaparin Sodium (Lovenox) 40 mg DAILY SC Last administered on 02/23/17 08:24 ; Admin Dose 40 MG; Start 02/22/17 at 09:00 Miscellaneous Information 1 ea NOTE XX ; Start 02/21/17 at 15:00 Glucose (Glutose) 15 gm Q15M PRN PO DECREASED GLUCOSE; Start 02/21/17 at 15:00 Glucose (Glutose) 22.5 gm Q15M PRN PO DECREASED GLUCOSE; Start 02/21/17 at 15: 00 Dextrose (D50w Syringe) 25 ml Q15M PRN IV DECREASED GLUCOSE; Start 02/21/17 at 15:00 Dextrose (D50w Syringe) 50 ml Q15M PRN IV DECREASED GLUCOSE; Start 02/21/17 at 15:00 Glucagon (Glucagen) 1 mg Q15M PRN IM DECREASED GLUCOSE; Start 02/21/17 at 15:00 Glucose (Glutose) 15 gm Q15M PRN BUCCAL DECREASED GLUCOSE; Start 02/21/17 at 15 :00 Methylprednisolone (Medrol) 4 mg HS PO ; Start 02/23/17 at 21:00; Stop 02/25/17 at 21:01 Spironolactone (Aldactone) 25 mg DAILY PO Last administered on 02/23/17 08:22 ; Admin Dose 25 MG; Start 02/22/17 at 09:00 Hydromorphone HCl (Dilaudid) 0.5 mg Q4 PRN IV SEVERE PAIN LEVEL 7-10 Last administered on 02/23/17 08:22; Admin Dose 0.5 MG; Start 02/21/17 at 21:00 Oxycodone/ Acetaminophen (Percocet (5/ 325)) 1 tab Q6 PRN PO PAIN; Start at 16:30 Pantoprazole (Protonix Tab) 40 mg DAILY@06 PO Last administered on 02/23/17t 06 :18; Admin Dose 40 MG; Start 02/23/17 at 06:00 Acetazolamide (Diamox) 250 mg BID PO ; Start 02/23/17 at 21:00 Assessment/Plan Additional Assessment/Plan IMP: Acute on chronic hypoxemic/hypercapnic respiratory insufficiency--in a morbidly obese patient with nonischemic cardiomyopathy with reduced ejection fraction as well as coexisting obesity hypoventilation syndrome. RECS: 1. Continuation of diuresis with following I's and O's and daily weights closely. 2. Nocturnal BiPAP. 3. Will need a sleep study as an outpatient and will need BiPAP or CPAP for home as well as sleep medicine followup. HUAN OWEN MD Feb 23, 2017 16:10
[2017-02-23] MEDS: ACETAZOLAMIDE 250 MG TAB PO SCH (20:32)
[2017-02-24] VITALS (15 sets, daily range): BP systolic 104–120; BP diastolic 61–74; PULSE 82–95; RESP 17–21
[2017-02-24] MEDS: ACCU-CHEK XX SCH (02:00)
[2017-02-24] MEDS: HYDROmorphONE 0.5 MG/0.5 ML SYG IV PRN ×3 (03:01→12:46)
[2017-02-24] MEDS: LEVOFLOXACIN 500 MG TAB PO SCH (06:08)
[2017-02-24] MEDS: FUROSEMIDE 40 MG TAB PO SCH ×2 (06:09→19:00)
[2017-02-24] MEDS: PANTOPRAZOLE (EC) 40 MG TAB PO SCH (06:09)
[2017-02-24] MEDS: ALBUTEROL/IPRATROPIUM (NEB) 3 ML AMP HHN SCH ×3 (08:00→20:00)
[2017-02-24] MEDS: INSULIN ASPART [NOVOLOG] 3 ML PEN SC SCH ×4 (08:01→23:25)
[2017-02-24] MEDS: ENOXAPARIN 40 MG/0.4 ML SYG SC SCH (08:02)
[2017-02-24] MEDS: INSULIN DETEMIR [LEVEMIR] 3ML CART SC SCH (08:03)
[2017-02-24] MEDS: SPIRONOLACTONE 25 MG TAB PO SCH (08:05)
[2017-02-24] MEDS: ASPIRIN (EC) 81 MG TAB PO SCH (08:05)
[2017-02-24] MEDS: LISINOPRIL 10 MG TAB PO SCH (08:05)
[2017-02-24] MEDS: METHYLPREDNISOLONE 4 MG TAB PO SCH ×3 (08:05→23:14)
[2017-02-24] MEDS: ACETAZOLAMIDE 250 MG TAB PO SCH ×2 (08:05→23:14)
[2017-02-24] MEDS: METOPROLOL (XL) 25 MG TAB PO SCH (08:06)
--- NOTE | 2017-02-24 13:39 | CONS ---
Date/Time of Note Date/Time of Note DATE: 02/24/17 TIME: 13:36 Consult Date/Type/Reason Admit Date/Time Feb 21, 2017 at 13:06 Initial Consult Date Type of Consultation: Pulm Subjective Patient remains comfortable no new events. Objective Vital Signs Date Time Temp Pulse Resp B/P Pulse Ox O2 Delivery O2 Flow Rate FiO2 02/24/17 12:09 97.8 92 19 113/67 95 02/24/17 09:35 2.0 02/24/17 09:32 Nasal Cannula 02/24/17 05:15 30 Intake and Output 02/23/17 02/23/17 02/24/17 15:00 23:00 07:00 Intake Total 800 ml 500 ml Balance 800 ml 500 ml Exam Patient comfortable no new events. Denies shortness of breath no chest pain. Sleeps better with BiPAP. Results/Medications Result Diagram: 02/23/17 0602 02/24/17 0601 Results 24 hrs Laboratory Tests Test 02/23/17 17:13 02/23/17 20:30 02/24/17 06:01 02/24/17 07:56 Bedside Glucose 320 H 148 161 Sodium Level 137 Potassium Level 4.6 Chloride Level 98 Carbon Dioxide Level 34 H Anion Gap 10 Blood Urea Nitrogen 21 H Creatinine 0.85 Glucose Level 189 Calcium Level 8.6 Total Bilirubin 0.2 Direct Bilirubin 0.00 Indirect Bilirubin 0.2 Aspartate Amino Transf (AST/SGOT) 31 Alanine Aminotransferase (ALT/SGPT) 25 Alkaline Phosphatase 56 Total Protein 6.5 Albumin 3.1 L Globulin 3.40 H Albumin/Globulin Ratio 0.91 Test 02/24/17 11:31 Bedside Glucose 143 Medications Current Medications Aspirin (Halfprin) 81 mg DAILY PO Last administered on 02/24/17 08:05; Admin Dose 81 MG; Start 02/22/17 at 09:00 Insulin Detemir (Levemir) 35 unit DAILY@08 SC Last administered on 02/24/17 08 :03; Admin Dose 35 UNIT; Start 02/22/17 at 08:00 Levofloxacin (Levaquin) 500 mg DAILY@06 PO Last administered on 02/24/17 06:08 ; Admin Dose 500 MG; Start 02/22/17 at 06:00 Lisinopril (Zestril) 10 mg DAILY PO Last administered on 02/24/17 08:05; Admin Dose 10 MG; Start 02/22/17 at 09:00 Metoprolol Succinate (Toprol Xl) 12.5 mg DAILY PO Last administered on 08:06; Admin Dose 12.5 MG; Start 02/22/17 at 09:00 Diagnostic Test (Pha) (Accu-Chek) 1 ea 02 XX Last administered on 02/22/17 02: 06; Admin Dose 1 EA; Start 02/22/17 at 02:00 Ondansetron HCl (Zofran Inj) 4 mg Q6H PRN IV NAUSEA AND/OR VOMITING; Start 02/21/17 at 15:00 Acetaminophen (Tylenol Tab) 650 mg Q6H PRN PO PAIN LEVEL 1-3 OR FEVER; Start 02/21/17 at 15:00 Acetaminophen (Tylenol Supp) 650 mg Q6H PRN [place] PAIN LEVEL 1-3 OR FEVER; Start 02/21/17 at 15:00 Docusate Sodium (Colace) 100 mg Q12H PRN PO CONSTIPATION; Start 02/21/17 at 15: 00 Magnesium Hydroxide (Milk Of Mag) 30 ml DAILY PRN PO CONSTIPATION; Start at 15:00 Bisacodyl (Dulcolax) 5 mg DAILY PRN PO CONSTIPATION; Start 02/21/17 at 15:00 Enoxaparin Sodium (Lovenox) 40 mg DAILY SC Last administered on 02/24/17 08:02 ; Admin Dose 40 MG; Start 02/22/17 at 09:00 Miscellaneous Information 1 ea NOTE XX ; Start 02/21/17 at 15:00 Glucose (Glutose) 15 gm Q15M PRN PO DECREASED GLUCOSE; Start 02/21/17 at 15:00 Glucose (Glutose) 22.5 gm Q15M PRN PO DECREASED GLUCOSE; Start 02/21/17 at 15: 00 Dextrose (D50w Syringe) 25 ml Q15M PRN IV DECREASED GLUCOSE; Start 02/21/17 at 15:00 Dextrose (D50w Syringe) 50 ml Q15M PRN IV DECREASED GLUCOSE; Start 02/21/17 at 15:00 Glucagon (Glucagen) 1 mg Q15M PRN IM DECREASED GLUCOSE; Start 02/21/17 at 15:00 Glucose (Glutose) 15 gm Q15M PRN BUCCAL DECREASED GLUCOSE; Start 02/21/17 at 15 :00 Methylprednisolone (Medrol) 4 mg HS PO Last administered on 02/23/17 20:32; Admin Dose 4 MG; Start 02/23/17 at 21:00; Stop 02/25/17 at 21:01 Spironolactone (Aldactone) 25 mg DAILY PO Last administered on 02/24/17 08:05 ; Admin Dose 25 MG; Start 02/22/17 at 09:00 Hydromorphone HCl (Dilaudid) 0.5 mg Q4 PRN IV SEVERE PAIN LEVEL 7-10 Last administered on 02/24/17 12:46; Admin Dose 0.5 MG; Start 02/21/17 at 21:00 Oxycodone/ Acetaminophen (Percocet (5/ 325)) 1 tab Q6 PRN PO PAIN; Start at 16:30 Pantoprazole (Protonix Tab) 40 mg DAILY@06 PO Last administered on 02/24/17 06 :09; Admin Dose 40 MG; Start 02/23/17 at 06:00 Acetazolamide (Diamox) 250 mg BID PO Last administered on 02/24/17 08:05; Admin Dose 250 MG; Start 02/23/17 at 21:00 Assessment/Plan Chief Complaint/Hosp Course Additional Assessment/Plan IMP: Acute on chronic hypoxemic/hypercapnic respiratory insufficiency--in a morbidly obese patient with nonischemic cardiomyopathy with reduced ejection fraction as well as coexisting obesity hypoventilation syndrome. RECS: 1. Continuation of diuresis with following I's and O's and daily weights closely. 2. Nocturnal BiPAP. 3. Will need a sleep study as an outpatient and will need BiPAP or CPAP for home as well as sleep medicine followup. DC okay from primary standpoint. Follow-up with me as an outpatient. Problems: SLOANE FRASER MD, [facility] Feb 24, 2017 13:39
--- NOTE | 2017-02-24 15:27 | RADRPT ---
Echocardiogram Report Patient Name: JEAN-CLAUDE SHAFFER Gender: Female Date: 1970 Study Date: 24-Feb-2017 Garden Consultant: Newton Walton JAYMIE Location: [facility] Ref. Physician: MICHAEL CHAN Quality: Adequate Procedures: Transthoracic echocardiogram with complete 2D, M-Mode, and doppler examination. Indications: Congestive Heart Failure. 2D/M Mode Doppler Measurement Value Normal Ranges Measurement Value Normal Ranges LVIDd 2D 6.3 3.5 - 5.6 cm AV Peak Rian 1.5 m/sec LVIDs 2D 5.2 2.1 - 4.1 cm AV Peak PG 9.0 mmHg LVPWd 2D 1.2 0.6 - 1.1 cm LVOT Peak Rian 0.8 m/sec IVSd 2D 1.2 0.6 - 1.1 cm LVOT Peak PG 2.5 mmHg AoR Diam 2D 2.3 2.0 - 3.7 cm MV E Peak Rian 1.3 m/sec EDV 2D 201.1 cm3 MV A Peak Rian 0.7 m/sec ESV 2D 143.3 cm3 MV E/A 1.8 LA Dimen 2D 4.1 2.3 - 4.0 cm MV Decel Time 137 msec MV Decel Moca 9 MV E/A 1.8 TR Peak Rian 2.5 m/sec TR Peak PG 24.1 mmHg RVSP 27.0 mmHg Findings Left Ventricle: Mild concentric left ventricular hypertrophy. Severe enlargement of left ventricle cavity. Severe left ventricular systolic dysfunction. Ejection fraction is visually estimated at 25 %. Right Ventricle: Normal right ventricular size. Mild right ventricular hypokinesis. Left Atrium: There is mild enlargement of left atrium. Right Atrium: The right atrium is normal in size. Mitral Valve: Mitral valve leaflets appear mildly thickened. Mild mitral annular calcification. Mild to moderate mitral valve regurgitation. Aortic Valve: Normal appearance of the aortic valve. No significant aortic stenosis or insufficiency. Tricuspid Valve: Normal appearance of the tricuspid valve. Estimated peak PA systolic pressure 27 mmHg. There is mild tricuspid regurgitation. Pulmonic Valve: Normal pulmonic valve appearance. Pericardium: Trivial pericardial effusion. Aorta: Normal aortic root. IVC: Normal size and normal respiratory collapse consistent with normal right atrial pressure. Conclusions 1.Mild concentric left ventricular hypertrophy. Severe enlargement of left ventricle cavity. Severe left ventricular systolic dysfunction. Ejection fraction is visually estimated at 25 %. 2.Normal right ventricular size. Mild right ventricular hypokinesis. 3.Mitral valve leaflets appear mildly thickened. Mild mitral annular calcification. Mild to moderate mitral valve regurgitation. 4.Normal appearance of the aortic valve. No significant aortic stenosis or insufficiency. 5.Normal appearance of the tricuspid valve. Estimated peak PA systolic pressure 27 mmHg. There is mild tricuspid regurgitation. 6.Trivial pericardial effusion. Electronically Signed By: Michael Chan 24-Feb-2017 15:26:47 -0800 Patient Name: JEAN-CLAUDE SHAFFER Study Date: 24-Feb-2017 [id number]
--- NOTE | 2017-02-24 15:27 | RADRPT ---
Echocardiogram Report Patient Name: JEAN-CLAUDE SHAFFER Gender: Female Date: 1970 Study Date: 24-Feb-2017 Job Placement Specialist: Newton Walton JAYMIE Location: [facility] Ref. Physician: MICHAEL CHAN Quality: Adequate Procedures: Transthoracic echocardiogram with complete 2D, M-Mode, and doppler examination. Indications: Congestive Heart Failure. 2D/M Mode Doppler Measurement Value Normal Ranges Measurement Value Normal Ranges LVIDd 2D 6.3 3.5 - 5.6 cm AV Peak Rian 1.5 m/sec LVIDs 2D 5.2 2.1 - 4.1 cm AV Peak PG 9.0 mmHg LVPWd 2D 1.2 0.6 - 1.1 cm LVOT Peak Rian 0.8 m/sec IVSd 2D 1.2 0.6 - 1.1 cm LVOT Peak PG 2.5 mmHg AoR Diam 2D 2.3 2.0 - 3.7 cm MV E Peak Rian 1.3 m/sec EDV 2D 201.1 cm3 MV A Peak Rian 0.7 m/sec ESV 2D 143.3 cm3 MV E/A 1.8 LA Dimen 2D 4.1 2.3 - 4.0 cm MV Decel Time 137 msec MV Decel Roberts 9 MV E/A 1.8 TR Peak Rian 2.5 m/sec TR Peak PG 24.1 mmHg RVSP 27.0 mmHg Findings Left Ventricle: Mild concentric left ventricular hypertrophy. Severe enlargement of left ventricle cavity. Severe left ventricular systolic dysfunction. Ejection fraction is visually estimated at 25 %. Right Ventricle: Normal right ventricular size. Mild right ventricular hypokinesis. Left Atrium: There is mild enlargement of left atrium. Right Atrium: The right atrium is normal in size. Mitral Valve: Mitral valve leaflets appear mildly thickened. Mild mitral annular calcification. Mild to moderate mitral valve regurgitation. Aortic Valve: Normal appearance of the aortic valve. No significant aortic stenosis or insufficiency. Tricuspid Valve: Normal appearance of the tricuspid valve. Estimated peak PA systolic pressure 27 mmHg. There is mild tricuspid regurgitation. Pulmonic Valve: Normal pulmonic valve appearance. Pericardium: Trivial pericardial effusion. Aorta: Normal aortic root. IVC: Normal size and normal respiratory collapse consistent with normal right atrial pressure. Conclusions 1.Mild concentric left ventricular hypertrophy. Severe enlargement of left ventricle cavity. Severe left ventricular systolic dysfunction. Ejection fraction is visually estimated at 25 %. 2.Normal right ventricular size. Mild right ventricular hypokinesis. 3.Mitral valve leaflets appear mildly thickened. Mild mitral annular calcification. Mild to moderate mitral valve regurgitation. 4.Normal appearance of the aortic valve. No significant aortic stenosis or insufficiency. 5.Normal appearance of the tricuspid valve. Estimated peak PA systolic pressure 27 mmHg. There is mild tricuspid regurgitation. 6.Trivial pericardial effusion. Electronically Signed By: Michael Chan 24-Feb-2017 15:26:47 -0800 Patient Name: JEAN-CLAUDE SHAFFER Study Date: 24-Feb-2017 [id number]
--- NOTE | 2017-02-24 15:27 | RADRPT ---
Echocardiogram Report Patient Name: JEAN-CLAUDE SHAFFER Gender: Female Date: 1970 Study Date: 24-Feb-2017 Catalyst Impregnator: Newton Walton JAYMIE Location: [facility] Ref. Physician: MICHAEL CHAN Quality: Adequate Procedures: Transthoracic echocardiogram with complete 2D, M-Mode, and doppler examination. Indications: Congestive Heart Failure. 2D/M Mode Doppler Measurement Value Normal Ranges Measurement Value Normal Ranges LVIDd 2D 6.3 3.5 - 5.6 cm AV Peak Rian 1.5 m/sec LVIDs 2D 5.2 2.1 - 4.1 cm AV Peak PG 9.0 mmHg LVPWd 2D 1.2 0.6 - 1.1 cm LVOT Peak Rian 0.8 m/sec IVSd 2D 1.2 0.6 - 1.1 cm LVOT Peak PG 2.5 mmHg AoR Diam 2D 2.3 2.0 - 3.7 cm MV E Peak Rian 1.3 m/sec EDV 2D 201.1 cm3 MV A Peak Rian 0.7 m/sec ESV 2D 143.3 cm3 MV E/A 1.8 LA Dimen 2D 4.1 2.3 - 4.0 cm MV Decel Time 137 msec MV Decel Edmunds 9 MV E/A 1.8 TR Peak Rian 2.5 m/sec TR Peak PG 24.1 mmHg RVSP 27.0 mmHg Findings Left Ventricle: Mild concentric left ventricular hypertrophy. Severe enlargement of left ventricle cavity. Severe left ventricular systolic dysfunction. Ejection fraction is visually estimated at 25 %. Right Ventricle: Normal right ventricular size. Mild right ventricular hypokinesis. Left Atrium: There is mild enlargement of left atrium. Right Atrium: The right atrium is normal in size. Mitral Valve: Mitral valve leaflets appear mildly thickened. Mild mitral annular calcification. Mild to moderate mitral valve regurgitation. Aortic Valve: Normal appearance of the aortic valve. No significant aortic stenosis or insufficiency. Tricuspid Valve: Normal appearance of the tricuspid valve. Estimated peak PA systolic pressure 27 mmHg. There is mild tricuspid regurgitation. Pulmonic Valve: Normal pulmonic valve appearance. Pericardium: Trivial pericardial effusion. Aorta: Normal aortic root. IVC: Normal size and normal respiratory collapse consistent with normal right atrial pressure. Conclusions 1.Mild concentric left ventricular hypertrophy. Severe enlargement of left ventricle cavity. Severe left ventricular systolic dysfunction. Ejection fraction is visually estimated at 25 %. 2.Normal right ventricular size. Mild right ventricular hypokinesis. 3.Mitral valve leaflets appear mildly thickened. Mild mitral annular calcification. Mild to moderate mitral valve regurgitation. 4.Normal appearance of the aortic valve. No significant aortic stenosis or insufficiency. 5.Normal appearance of the tricuspid valve. Estimated peak PA systolic pressure 27 mmHg. There is mild tricuspid regurgitation. 6.Trivial pericardial effusion. Electronically Signed By: Michael Chan 24-Feb-2017 15:26:47 -0800 Patient Name: JEAN-CLAUDE SHAFFER Study Date: 24-Feb-2017 [id number]
--- NOTE | 2017-02-24 23:12 | PN ---
Date/Time of Note Date/Time of Note DATE: 02/24/17 TIME: 23:11 Assessment/Plan VTE Prophylaxis VTE Prophylaxis Intervention: other Lines/Catheters IV Catheter Type (from Nrs): Saline Lock Urinary Cath still in place: Yes Reason Cath still needed: other (indicate) Assessment/Plan Chief Complaint/Hosp Course copd chf better htn obesity plan lasix diamox xr chest Problems: Subjective 24 Hr Interval Summary Respiratory: shortness of breath (better) Exam/Review of Systems Vital Signs Vitals Vital Signs Date Time Temp Pulse Resp B/P Pulse Ox O2 Delivery O2 Flow Rate FiO2 02/24/17 20:00 90 02/24/17 15:23 97.8 20 108/61 99 02/24/17 13:38 Nasal Cannula 2.0 02/24/17 05:15 30 Intake and Output 02/23/17 02/23/17 02/24/17 15:00 23:00 07:00 Intake Total 800 ml 500 ml Balance 800 ml 500 ml Exam Neck: supple Respiratory: clear to auscultation Cardiovascular: regular rate and rhythm Gastrointestinal: soft Musculoskeletal: nl extremities to inspection Extremities: normal pulses Results Result Diagram: 02/23/17 0602 02/24/17 0601 Results 24 hrs Laboratory Tests Test 02/24/17 06:01 02/24/17 07:56 02/24/17 11:31 02/24/17 16:45 Sodium Level 137 Potassium Level 4.6 Chloride Level 98 Carbon Dioxide Level 34 H Anion Gap 10 Blood Urea Nitrogen 21 H Creatinine 0.85 Glucose Level 189 Calcium Level 8.6 Total Bilirubin 0.2 Direct Bilirubin 0.00 Indirect Bilirubin 0.2 Aspartate Amino Transf (AST/SGOT) 31 Alanine Aminotransferase (ALT/SGPT) 25 Alkaline Phosphatase 56 Total Protein 6.5 Albumin 3.1 L Globulin 3.40 H Albumin/Globulin Ratio 0.91 Bedside Glucose 161 143 220 Medications Medications Current Medications Aspirin (Halfprin) 81 mg DAILY PO Last administered on 02/24/17 08:05; Admin Dose 81 MG; Start 02/22/17 at 09:00 Insulin Detemir (Levemir) 35 unit DAILY@08 SC Last administered on 02/24/17 08 :03; Admin Dose 35 UNIT; Start 02/22/17 at 08:00 Levofloxacin (Levaquin) 500 mg DAILY@06 PO Last administered on 02/24/17 06:08 ; Admin Dose 500 MG; Start 02/22/17 at 06:00 Lisinopril (Zestril) 10 mg DAILY PO Last administered on 02/24/17 08:05; Admin Dose 10 MG; Start 02/22/17 at 09:00 Metoprolol Succinate (Toprol Xl) 12.5 mg DAILY PO Last administered on 08:06; Admin Dose 12.5 MG; Start 02/22/17 at 09:00 Diagnostic Test (Pha) (Accu-Chek) 1 ea 02 XX Last administered on 02/22/17 02: 06; Admin Dose 1 EA; Start 02/22/17 at 02:00 Ondansetron HCl (Zofran Inj) 4 mg Q6H PRN IV NAUSEA AND/OR VOMITING; Start 02/21/17 at 15:00 Acetaminophen (Tylenol Tab) 650 mg Q6H PRN PO PAIN LEVEL 1-3 OR FEVER; Start 02/21/17 at 15:00 Acetaminophen (Tylenol Supp) 650 mg Q6H PRN [place] PAIN LEVEL 1-3 OR FEVER; Start 02/21/17 at 15:00 Docusate Sodium (Colace) 100 mg Q12H PRN PO CONSTIPATION; Start 02/21/17 at 15: 00 Magnesium Hydroxide (Milk Of Mag) 30 ml DAILY PRN PO CONSTIPATION; Start at 15:00 Bisacodyl (Dulcolax) 5 mg DAILY PRN PO CONSTIPATION; Start 02/21/17 at 15:00 Enoxaparin Sodium (Lovenox) 40 mg DAILY SC Last administered on 02/24/17 08:02 ; Admin Dose 40 MG; Start 02/22/17 at 09:00 Miscellaneous Information 1 ea NOTE XX ; Start 02/21/17 at 15:00 Glucose (Glutose) 15 gm Q15M PRN PO DECREASED GLUCOSE; Start 02/21/17 at 15:00 Glucose (Glutose) 22.5 gm Q15M PRN PO DECREASED GLUCOSE; Start 02/21/17 at 15: 00 Dextrose (D50w Syringe) 25 ml Q15M PRN IV DECREASED GLUCOSE; Start 02/21/17 at 15:00 Dextrose (D50w Syringe) 50 ml Q15M PRN IV DECREASED GLUCOSE; Start 02/21/17 at 15:00 Glucagon (Glucagen) 1 mg Q15M PRN IM DECREASED GLUCOSE; Start 02/21/17 at 15:00 Glucose (Glutose) 15 gm Q15M PRN BUCCAL DECREASED GLUCOSE; Start 02/21/17 at 15 :00 Methylprednisolone (Medrol) 4 mg HS PO Last administered on 02/23/17 20:32; Admin Dose 4 MG; Start 02/23/17 at 21:00; Stop 02/25/17 at 21:01 Spironolactone (Aldactone) 25 mg DAILY PO Last administered on 02/24/17 08:05 ; Admin Dose 25 MG; Start 02/22/17 at 09:00 Hydromorphone HCl (Dilaudid) 0.5 mg Q4 PRN IV SEVERE PAIN LEVEL 7-10 Last administered on 02/24/17 12:46; Admin Dose 0.5 MG; Start 02/21/17 at 21:00 Oxycodone/ Acetaminophen (Percocet (5/ 325)) 1 tab Q6 PRN PO PAIN; Start at 16:30 Pantoprazole (Protonix Tab) 40 mg DAILY@06 PO Last administered on 02/24/17 06 :09; Admin Dose 40 MG; Start 02/23/17 at 06:00 Acetazolamide (Diamox) 250 mg BID PO Last administered on 02/24/17 08:05; Admin Dose 250 MG; Start 02/23/17 at 21:00 Lorazepam (Ativan) 1 mg BID PRN IV ANXIETY; Start 02/24/17 at 22:30 MITA HENAO MD Feb 24, 2017 23:12
[2017-02-24] MEDS: LORAZEPAM 2 MG INJ IV PRN (23:14)
[2017-02-25] VITALS (11 sets, daily range): BP systolic 90–102; BP diastolic 55–60; PULSE 82–101; RESP 18–19
[2017-02-25] MEDS: ACCU-CHEK XX SCH (02:00)
[2017-02-25] MEDS: HYDROmorphONE 0.5 MG/0.5 ML SYG IV PRN ×3 (03:14→13:00)
[2017-02-25] MEDS: PANTOPRAZOLE (EC) 40 MG TAB PO SCH (06:52)
[2017-02-25] MEDS: LEVOFLOXACIN 500 MG TAB PO SCH (06:53)
[2017-02-25] MEDS: FUROSEMIDE 40 MG TAB PO SCH (06:53)
[2017-02-25] MEDS: ALBUTEROL/IPRATROPIUM (NEB) 3 ML AMP HHN SCH ×2 (07:26→13:36)
[2017-02-25] MEDS: ASPIRIN (EC) 81 MG TAB PO SCH (08:31)
[2017-02-25] MEDS: ACETAZOLAMIDE 250 MG TAB PO SCH (08:32)
[2017-02-25] MEDS: LISINOPRIL 10 MG TAB PO SCH (08:32)
[2017-02-25] MEDS: METHYLPREDNISOLONE 4 MG TAB PO SCH (08:32)
[2017-02-25] MEDS: METOPROLOL (XL) 25 MG TAB PO SCH (08:33)
[2017-02-25] MEDS: SPIRONOLACTONE 25 MG TAB PO SCH (08:33)
[2017-02-25] MEDS: INSULIN ASPART [NOVOLOG] 3 ML PEN SC SCH ×2 (08:49→11:51)
[2017-02-25] MEDS: INSULIN DETEMIR [LEVEMIR] 3ML CART SC SCH (08:50)
[2017-02-25] MEDS: ENOXAPARIN 40 MG/0.4 ML SYG SC SCH (08:50)
--- NOTE | 2017-02-25 09:40 | CONS ---
Date/Time of Note Date/Time of Note DATE: 02/25/17 TIME: 09:37 Assessment/Plan Assessment/Plan Additional Assessment/Plan 1. Acute exacerbation of systolic heart failure- stable now, con't gentle diuresis as tolerated 2. Chronic obstructive pulmonary disease exacerbation- on meds, con't resp Rx - pulmonary team follows 3.Hypertension - well Rx, con't to adjustRx as needed 4. Diabetes mellitus - on meds, con't to keep euglycemic. 5. tobacco abuse- d/c advised. 6. History of substance abuse - per PMD. Morbid obesity JAYDEN Consultation Date/Type/Reason Admit Date/Time Feb 21, 2017 at 13:06 Initial Consult Date Type of Consultation: Pulm 24 HR Interval Summary Free Text/Dictation No acute events - still SOB, con't gentle diuresis and pulm care ROS: No fever, no chills, no nausea, no vomiting, no diarrhea/constipation No recent weight changes No chest pain, no PND, no orthopnea + SOB No dizziness, blurred vision No thirst, no heat or cold intolerance Exam/Review of Systems Vital Signs Vitals Vital Signs Date Time Temp Pulse Resp B/P Pulse Ox O2 Delivery O2 Flow Rate FiO2 02/25/17 08:00 82 02/25/17 07:26 18 98 Nasal Cannula 2.0 02/25/17 07:21 98.1 102/60 02/25/17 04:05 30 Intake and Output 02/24/17 02/24/17 02/25/17 15:00 23:00 07:00 Intake Total 450 ml Balance 450 ml Exam General: WN/WD/NAD, AOx 2-3 HEENT: Unicetric/atraumatic/EOMI (follow commands) NECK: JVD elevated, no thyromegaly Lymph: no lymphadenopathy HEART: regular with no S3, II/ systolic murmur at apex LUNGS: Coarse sounds, + Wheezing ABD: soft, NT, ND, +BS : Intact Neuro: non focal SKIN: chronic changes EXT: trace edema Results Result Diagram: 02/23/17 0602 02/25/17 0608 Results 24 hrs Laboratory Tests Test 02/24/17 11:31 02/24/17 16:45 02/24/17 23:08 02/25/17 02:45 Bedside Glucose 143 220 255 H 191 Test 02/25/17 06:08 02/25/17 08:31 Sodium Level 138 Potassium Level 4.3 Chloride Level 101 Carbon Dioxide Level 30 Anion Gap 11 Blood Urea Nitrogen 20 Creatinine 0.93 Glucose Level 164 Calcium Level 8.5 Total Bilirubin 0.1 L Direct Bilirubin 0.00 Indirect Bilirubin 0.1 Aspartate Amino Transf (AST/SGOT) 20 Alanine Aminotransferase (ALT/SGPT) 27 Alkaline Phosphatase 71 Total Protein 6.5 Albumin 3.3 Globulin 3.20 Albumin/Globulin Ratio 1.03 Bedside Glucose 179 Medications Medications Current Medications Aspirin (Halfprin) 81 mg DAILY PO Last administered on 02/25/17 08:31; Admin Dose 81 MG; Start 02/22/17 at 09:00 Insulin Detemir (Levemir) 35 unit DAILY@08 SC Last administered on 02/25/17 08 :50; Admin Dose 35 UNIT; Start 02/22/17 at 08:00 Levofloxacin (Levaquin) 500 mg DAILY@06 PO Last administered on 02/25/17 06:53 ; Admin Dose 500 MG; Start 02/22/17 at 06:00 Lisinopril (Zestril) 10 mg DAILY PO Last administered on 02/25/17 08:32; Admin Dose 10 MG; Start 02/22/17 at 09:00 Metoprolol Succinate (Toprol Xl) 12.5 mg DAILY PO Last administered on 08:33; Admin Dose 12.5 MG; Start 02/22/17 at 09:00 Diagnostic Test (Pha) (Accu-Chek) 1 ea 02 XX Last administered on 02/22/17 02: 06; Admin Dose 1 EA; Start 02/22/17 at 02:00 Ondansetron HCl (Zofran Inj) 4 mg Q6H PRN IV NAUSEA AND/OR VOMITING; Start 02/21/17 at 15:00 Acetaminophen (Tylenol Tab) 650 mg Q6H PRN PO PAIN LEVEL 1-3 OR FEVER; Start 02/21/17 at 15:00 Acetaminophen (Tylenol Supp) 650 mg Q6H PRN TN PAIN LEVEL 1-3 OR FEVER; Start 02/21/17 at 15:00 Docusate Sodium (Colace) 100 mg Q12H PRN PO CONSTIPATION; Start 02/21/17 at 15: 00 Magnesium Hydroxide (Milk Of Mag) 30 ml DAILY PRN PO CONSTIPATION; Start at 15:00 Bisacodyl (Dulcolax) 5 mg DAILY PRN PO CONSTIPATION; Start 02/21/17 at 15:00 Enoxaparin Sodium (Lovenox) 40 mg DAILY SC Last administered on 02/25/17 08:50 ; Admin Dose 40 MG; Start 02/22/17 at 09:00 Miscellaneous Information 1 ea NOTE XX ; Start 02/21/17 at 15:00 Glucose (Glutose) 15 gm Q15M PRN PO DECREASED GLUCOSE; Start 02/21/17 at 15:00 Glucose (Glutose) 22.5 gm Q15M PRN PO DECREASED GLUCOSE; Start 02/21/17 at 15: 00 Dextrose (D50w Syringe) 25 ml Q15M PRN IV DECREASED GLUCOSE; Start 02/21/17 at 15:00 Dextrose (D50w Syringe) 50 ml Q15M PRN IV DECREASED GLUCOSE; Start 02/21/17 at 15:00 Glucagon (Glucagen) 1 mg Q15M PRN IM DECREASED GLUCOSE; Start 02/21/17 at 15:00 Glucose (Glutose) 15 gm Q15M PRN BUCCAL DECREASED GLUCOSE; Start 02/21/17 at 15 :00 Methylprednisolone (Medrol) 4 mg HS PO Last administered on 02/24/17 23:14; Admin Dose 4 MG; Start 02/23/17 at 21:00; Stop 02/25/17 at 21:01 Spironolactone (Aldactone) 25 mg DAILY PO Last administered on 02/25/17 08:33 ; Admin Dose 25 MG; Start 02/22/17 at 09:00 Hydromorphone HCl (Dilaudid) 0.5 mg Q4 PRN IV SEVERE PAIN LEVEL 7-10 Last administered on 02/25/17 08:34; Admin Dose 0.5 MG; Start 02/21/17 at 21:00 Oxycodone/ Acetaminophen (Percocet (5/ 325)) 1 tab Q6 PRN PO PAIN; Start at 16:30 Pantoprazole (Protonix Tab) 40 mg DAILY@06 PO Last administered on 02/25/17 06 :52; Admin Dose 40 MG; Start 02/23/17 at 06:00 Acetazolamide (Diamox) 250 mg BID PO Last administered on 02/25/17 08:32; Admin Dose 250 MG; Start 02/23/17 at 21:00 Lorazepam (Ativan) 1 mg BID PRN IV ANXIETY Last administered on 02/24/17 23:14 ; Admin Dose 1 MG; Start 02/24/17 at 22:30 JOHN BOWERS MD Feb 25, 2017 09:40
--- NOTE | 2017-02-25 11:29 | CONS ---
Date/Time of Note Date/Time of Note DATE: 02/25/17 TIME: 11:29 Consult Date/Type/Reason Admit Date/Time Feb 21, 2017 at 13:06 Type of Consultation: Pulm Subjective Patient comfortable no new events. Denies shortness of breath. Objective Vital Signs Date Time Temp Pulse Resp B/P Pulse Ox O2 Delivery O2 Flow Rate FiO2 02/25/17 08:00 82 02/25/17 07:45 Nasal Cannula 2.0 02/25/17 07:26 18 98 02/25/17 07:21 98.1 102/60 02/25/17 04:05 30 Intake and Output 02/24/17 02/24/17 02/25/17 15:00 23:00 07:00 Intake Total 450 ml Balance 450 ml Exam GENERAL: Obese lady comfortable at rest no acute distress. VITAL SIGNS: per chart NECK: Supple. No JVD or lymphadenopathy. CARDIAC EXAM: S1, S2. No added sounds or murmurs. CHEST: clear bilaterally, No added sounds, rales or wheezes ABDOMEN: Soft, nontender. No guarding or rebound. EXTREMITIES: No cyanosis, clubbing or edema. NEUROLOGIC: Generalized weakness. No focal deficits. Results/Medications Result Diagram: 02/23/17 0602 02/25/17 0608 Results 24 hrs Laboratory Tests Test 02/24/17 11:31 02/24/17 16:45 02/24/17 23:08 02/25/17 02:45 Bedside Glucose 143 220 255 H 191 Test 02/25/17 06:08 02/25/17 08:31 Sodium Level 138 Potassium Level 4.3 Chloride Level 101 Carbon Dioxide Level 30 Anion Gap 11 Blood Urea Nitrogen 20 Creatinine 0.93 Glucose Level 164 Calcium Level 8.5 Total Bilirubin 0.1 L Direct Bilirubin 0.00 Indirect Bilirubin 0.1 Aspartate Amino Transf (AST/SGOT) 20 Alanine Aminotransferase (ALT/SGPT) 27 Alkaline Phosphatase 71 Total Protein 6.5 Albumin 3.3 Globulin 3.20 Albumin/Globulin Ratio 1.03 Bedside Glucose 179 Medications Current Medications Aspirin (Halfprin) 81 mg DAILY PO Last administered on 02/25/17 08:31; Admin Dose 81 MG; Start 02/22/17 at 09:00 Insulin Detemir (Levemir) 35 unit DAILY@08 SC Last administered on 02/25/17 08 :50; Admin Dose 35 UNIT; Start 02/22/17 at 08:00 Levofloxacin (Levaquin) 500 mg DAILY@06 PO Last administered on 02/25/17 06:53 ; Admin Dose 500 MG; Start 02/22/17 at 06:00 Lisinopril (Zestril) 10 mg DAILY PO Last administered on 02/25/17 08:32; Admin Dose 10 MG; Start 02/22/17 at 09:00 Metoprolol Succinate (Toprol Xl) 12.5 mg DAILY PO Last administered on 08:33; Admin Dose 12.5 MG; Start 02/22/17 at 09:00 Diagnostic Test (Pha) (Accu-Chek) 1 ea 02 XX Last administered on 02/22/17 02: 06; Admin Dose 1 EA; Start 02/22/17 at 02:00 Ondansetron HCl (Zofran Inj) 4 mg Q6H PRN IV NAUSEA AND/OR VOMITING; Start 02/21/17 at 15:00 Acetaminophen (Tylenol Tab) 650 mg Q6H PRN PO PAIN LEVEL 1-3 OR FEVER; Start 02/21/17 at 15:00 Acetaminophen (Tylenol Supp) 650 mg Q6H PRN [place] PAIN LEVEL 1-3 OR FEVER; Start 02/21/17 at 15:00 Docusate Sodium (Colace) 100 mg Q12H PRN PO CONSTIPATION; Start 02/21/17 at 15: 00 Magnesium Hydroxide (Milk Of Mag) 30 ml DAILY PRN PO CONSTIPATION; Start at 15:00 Bisacodyl (Dulcolax) 5 mg DAILY PRN PO CONSTIPATION; Start 02/21/17 at 15:00 Enoxaparin Sodium (Lovenox) 40 mg DAILY SC Last administered on 02/25/17 08:50 ; Admin Dose 40 MG; Start 02/22/17 at 09:00 Miscellaneous Information 1 ea NOTE XX ; Start 02/21/17 at 15:00 Glucose (Glutose) 15 gm Q15M PRN PO DECREASED GLUCOSE; Start 02/21/17 at 15:00 Glucose (Glutose) 22.5 gm Q15M PRN PO DECREASED GLUCOSE; Start 02/21/17 at 15: 00 Dextrose (D50w Syringe) 25 ml Q15M PRN IV DECREASED GLUCOSE; Start 02/21/17 at 15:00 Dextrose (D50w Syringe) 50 ml Q15M PRN IV DECREASED GLUCOSE; Start 02/21/17 at 15:00 Glucagon (Glucagen) 1 mg Q15M PRN IM DECREASED GLUCOSE; Start 02/21/17 at 15:00 Glucose (Glutose) 15 gm Q15M PRN BUCCAL DECREASED GLUCOSE; Start 02/21/17 at 15 :00 Methylprednisolone (Medrol) 4 mg HS PO Last administered on 02/24/17 23:14; Admin Dose 4 MG; Start 02/23/17 at 21:00; Stop 02/25/17 at 21:01 Spironolactone (Aldactone) 25 mg DAILY PO Last administered on 02/25/17 08:33 ; Admin Dose 25 MG; Start 02/22/17 at 09:00 Hydromorphone HCl (Dilaudid) 0.5 mg Q4 PRN IV SEVERE PAIN LEVEL 7-10 Last administered on 02/25/17 08:34; Admin Dose 0.5 MG; Start 02/21/17 at 21:00 Oxycodone/ Acetaminophen (Percocet (5/ 325)) 1 tab Q6 PRN PO PAIN; Start at 16:30 Pantoprazole (Protonix Tab) 40 mg DAILY@06 PO Last administered on 02/25/17 06 :52; Admin Dose 40 MG; Start 02/23/17 at 06:00 Acetazolamide (Diamox) 250 mg BID PO Last administered on 02/25/17 08:32; Admin Dose 250 MG; Start 02/23/17 at 21:00 Lorazepam (Ativan) 1 mg BID PRN IV ANXIETY Last administered on 02/24/17 23:14 ; Admin Dose 1 MG; Start 02/24/17 at 22:30 Assessment/Plan Chief Complaint/Hosp Course Additional Assessment/Plan IMP: Acute on chronic hypoxemic/hypercapnic respiratory insufficiency--in a morbidly obese patient with nonischemic cardiomyopathy with reduced ejection fraction as well as coexisting obesity hypoventilation syndrome. RECS: 1. Continuation of diuresis with following I's and O's and daily weights closely. 2. Nocturnal BiPAP. 3. Will need a sleep study as an outpatient and will need BiPAP or CPAP for home as well as sleep medicine followup. DC okay from primary standpoint. Follow-up with me as an outpatient. Problems: SLOANE FRASER MD, [facility] Feb 25, 2017 11:29
[2017-02-25] MEDS: LORAZEPAM 2 MG INJ IV PRN (14:41)
--- NOTE | 2017-02-25 14:52 | RADRPT ---
Vent Rate: 84 bpm RR Interval: 0 msec IN Interval: 134 msec QRS Duration: 102 msec QT Interval: 392 msec QTC Interval: 463 msec P-R-T [place]: 10 - 18 - 36 degrees Normal sinus rhythm Normal ECG Electronically Signed By: Guerrero Spears [id number]
--- NOTE | 2017-02-25 14:52 | RADRPT ---
Vent Rate: 84 bpm RR Interval: 0 msec [place] Interval: 134 msec QRS Duration: 102 msec QT Interval: 392 msec QTC Interval: 463 msec P-R-T [place]: 10 - 18 - 36 degrees Normal sinus rhythm Normal ECG Electronically Signed By: Guerrero Spears [id number]
--- NOTE | 2017-02-25 14:52 | RADRPT ---
Vent Rate: 84 bpm RR Interval: 0 msec [place] Interval: 134 msec QRS Duration: 102 msec QT Interval: 392 msec QTC Interval: 463 msec P-R-T [place]: 10 - 18 - 36 degrees Normal sinus rhythm Normal ECG Electronically Signed By: Guerrero Spears [id number]
--- NOTE | 2017-02-25 16:06 | RADRPT ---
PROCEDURE: XR Chest. CLINICAL INDICATION: Shortness of breath. TECHNIQUE: Single frontal view. COMPARISON: 02/22/2017. FINDINGS: Pulmonary edema is improved. The lungs are otherwise clear. The heart is enlarged. There is no pleural effusion. There is no pneumothorax. IMPRESSION: 1. Improved pulmonary edema. 2. Otherwise clear lungs. 3. Cardiomegaly. 4. No other change from the 02/22/2017 chest radiograph. RPTAT: QQ .Avery Huertas MD, MD Date Time Electronically viewed and signed by .Avery Huertas MD, MD on 02/25/2017 16:05 .R/
--- NOTE | 2017-02-25 16:42 | PDOCDIS ---
Discharge Instructions CONDITION Patient Condition: Stable HOME CARE INSTRUCTIONS: Diet Instructions: Low Fat /CholesterolSpecial Diet: DIABETIC DIET. ACTIVITY: Activity Restrictions: Slowly Increase Activity FOLLOW UP/APPOINTMENTS Follow-up Plan f/u own pcp [address] bello 1 wk MITA HENAO MD Feb 25, 2017 16:42
[2017-02-25] MEDS ORDERED: DOCU-216 PO (16:47)
[2017-02-25] MEDS ORDERED: ASPI-664 PO (16:47)
[2017-02-25] MEDS ORDERED: FURO40TA4 PO (16:47)
[2017-02-25] MEDS ORDERED: METH4TAB PO (16:47)
[2017-02-25] MEDS ORDERED: IPRA3AMP HHN ×2 (16:47)
[2017-02-25] MEDS ORDERED: METO-335 PO (16:47)
[2017-02-25] MEDS ORDERED: BISA5TAB6 PO (16:47)
[2017-02-25] MEDS ORDERED: SPIR25TA PO (16:47)
[2017-02-25] MEDS ORDERED: LISI10TA2 PO (16:47)
[2017-02-25] MEDS ORDERED: FUROSEMIDE 20 MG INJ IV SCH (18:00)
--- NOTE | 2017-02-26 23:06 | CONS ---
DATE OF ADMISSION: 02/21/2017 DATE OF CONSULTATION: 02/23/2017 TYPE OF CONSULTATION: Gastroenterology. REFERRING PHYSICIAN: Hitesh Henao. Thanks for the referral. HISTORY OF PRESENT ILLNESS: The patient is a 46-year-old female with a history of cardiomyopathy, E F of 30% to 35%, was admitted to the hospital for shortness of breath. The patient was initially at a different facility, transferred to [facility] for insurance purposes. She was in CHF. She also has a history of COPD, substance abuse, psychiatric disorder and hypertension. GI consult was call ed in for abdominal pain. Patient also had surgery on an umbilical hernia. No nausea, no vomiting. Good bowel movement. No GI bleeding, no chest pain. PAST MEDICAL HISTORY: As described. MEDICATIONS: All reviewed. ALLERGIES: NO KNOWN DRUG ALLERGIES. SOCIAL HISTORY: Quit smoking 2 months ago. FAMILY HISTORY: Negative. PHYSICAL EXAMINATION: GENERAL: Overweight, not in distress. VITAL SIGNS: Stable. HEENT: Unremarkable. NECK: Supple, no thyromegaly, no lymphadenopathy. CARDIOVASCULAR: No murmur, gallop or click. LUNGS: Air entry diminished at both bases. ABDOMEN: Patient is morbidly obese and there is a small incisional hernia near the umbilical area. It is totally reducible and nontender. EXTREMITIES: No edema. CENTRAL NERVOUS SYSTEM: Grossly within normal limits. IMPRESSION: 1. Congestive heart failure. 2. Cardiomyopathy. 3. Diabetes mellitus. 4. Chronic obstructive pulmonary disease. 5. Morbid obesity. 6. Small incisional hernia. PLAN: I told the patient she has to lose weight, which overall will help her condition and also for the hernia. At this point, she does not need surgery for hernia, and if the pain increases or the hernia is nonreducible, then definitely she needs a surgical followup. The patient understood and h as agreed. Dictated By: RAY NEW/DEENA Conf#: [id number] DID#: [id number] CC: HITESH HENAO MD;*EndCC*
== END 2017-02-25 17:59 | disposition home or self-care (01) | DRG 291 ==
LOC: TEL 13:06
PROVIDERS: ADMIT Internal Medicine Nephrology; ATTEND Internal Medicine Nephrology
PROC: 4A033R1 Measurement of Arterial Saturation, Peripheral, Percutaneous Approach (ICD-10-PCS; principal; 2017-02-23)
DX: I11.0 Hypertensive heart disease with heart failure (principal); J96.22 Acute and chronic respiratory failure with hypercapnia; J96.21 Acute and chronic respiratory failure with hypoxia; I42.9 Cardiomyopathy, unspecified; E66.2 Morbid (severe) obesity with alveolar hypoventilation; D64.9 Anemia, unspecified; E11.9 Type 2 diabetes mellitus without complications; J44.1 Chronic obstructive pulmonary disease with (acute) exacerbation; Z68.43 Body mass index [BMI] 50.0-59.9, adult; I50.23 Acute on chronic systolic (congestive) heart failure; K43.2 Incisional hernia without obstruction or gangrene; Z87.891 Personal history of nicotine dependence; Z79.82 Long term (current) use of aspirin; Z79.4 Long term (current) use of insulin
CPT/HCPCS: 36600; 71010; 80048; 80053; 80061; 82803; 82962; 83036; 83735; 84436; 84443; 84479; 84484; 85025; 87081; 93005; 93306; 94640; 94660; 94664; C9113; J1170; J1650; J1815; J2060; J7509

== ENCOUNTER 2017-04-14 08:38 | Inpatient (IN) | END 2017-04-23 10:47 | disposition home or self-care (01) | DRG 291 ==

== ENCOUNTER 2017-05-13 11:11 | Inpatient (IN) | END 2017-05-16 15:03 | disposition home or self-care (01) | DRG 280 ==

== ENCOUNTER 2017-10-27 22:56 | Inpatient (IN) | END 2017-10-31 17:06 | disposition home or self-care (01) | DRG 291 ==

== ENCOUNTER 2018-01-28 18:00 | Inpatient (IN) | END 2018-02-05 16:44 | disposition home health service (06) | DRG 190 ==

== ENCOUNTER 2018-02-16 10:40 | Emergency (ER) | END 2018-02-16 16:33 | disposition home or self-care (01) ==

== ENCOUNTER 2018-04-07 18:34 | Inpatient (IN) | END 2018-04-09 15:25 | disposition left against medical advice (07) | DRG 291 ==

== ENCOUNTER 2018-04-15 14:23 | Inpatient (IN) | payer BC ==
[~2018-04-15] VITALS: Ht 154.9 cm; Wt 129.6 kg
[~2018-04-15 14:23] MED LIST changes: +APIX5TAB PO; -ASPI-664 PO; +ASPI-817 PO; +ATOR10TA65 PO; +BISA5TAB6 PO; +DIGO125T PO; +DOCU-144 PO; +HYDR-4011 PO; +IBUP-1542 PO; -INSU100I27 SC; +INSU100I33 SC; +IPRA3AMP29 INHALATION; +ISOS20TA19 PO; -LEVO500T72 PO; +LISI-313 PO; -LISI10TA2 PO; +LORA-441 PO; +LOSA50TA7 PO; -MED4DP PO; +METF100010 PO; +PANT40TA3 PO; +POTA20TA96 PO; +PRED20TA PO; +QUET100T PO; +RIFA300C3 PO
[2018-04-15] MEDS ORDERED: METHYLPREDNISOLONE 125 MG INJ IV STA (15:04)
[2018-04-15] MEDS ORDERED: ALBUTEROL 0.5% (NEB) 2.5 MG/0.5 ML AMP INH STA (15:04)
[2018-04-15] MEDS ORDERED: IPRATROPIUM (NEB) 0.5 MG/2.5 ML AMP INH STA (15:04)
--- NOTE | 2018-04-15 15:27 | ERD ---
ER Documentation Chief Complaint Chief Complaint SOB ACCOMPANIED BY CHEST PAIN HPI 47-year-old woman presents with shortness of breath, wheezing, and chest pain beginning earlier today. She had substernal chest discomfort which was partially relieved with aspirin and nitroglycerin given by EMS upon their arrival. Patient has a long history of CHF and COPD and is on home oxygen daily and states she has been wheezing for the last 2 days. She left AGAINST MEDICAL ADVICE from this hospital after being admitted for similar symptoms. She admits to noncompliance with daily furosemide because of the "holidays". She denies calf or leg swelling, no fevers or chills, no vomiting or diarrhea. Patient was transported here by EMS without further complications ROS All systems reviewed and are negative except as per history of present illness. Medications Home Meds Active Scripts Ibuprofen* (Motrin*) 600 Mg Tab, 600 MG PO Q6, #30 TAB Prov:NAIN KINGSLEY PA-C 02/16/18 Hydrocodone/Acetaminophen (Mcgrady 5-325 Tablet) 1 Each Tablet, 1 TAB PO Q6H PRN f or PAIN, #20 TAB Prov:NAIN KINGSLEY PA-C 02/16/18 Apixaban* (Eliquis*) 5 Mg Tablet, 5 MG PO BID for 30 Days, TAB Prov:ALEKSANDRA SALCIDO MD 02/04/18 Isosorbide Dinitrate* (Isosorbide Dinitrate*) 20 Mg Tablet, 10 MG PO TID for 30 Days, TAB Prov:ALEKSANDRA SALCIDO MD 02/04/18 Lisinopril* (Lisinopril*) 5 Mg Tablet, 2.5 MG PO DAILY for 30 Days, TAB Prov:ALEKSANDRA SALCIDO MD 02/04/18 Metoprolol Succinate* (Toprol XL*) 25 Mg Tab.sr.24h, 50 MG PO BID for 30 Days Prov:ALEKSANDRA SALCIDO MD 02/04/18 Digoxin* (Digitek*) 125 Mcg Tablet, 0.125 MG PO DAILY@13 for 30 Days, TAB Prov:ALEKSANDRA SALCIDO MD 02/04/18 Ipratropium-Albuterol (Ipratropium-Albuterol) 0.5-3 Mg/3 Ml Ampul.neb, 3 ML INHALATION Q4H PRN for WHEEZING AND SOB for 10 Days, #30 VIAL Prov:ALEKSANDRA SALCIDO MD 02/04/18 Furosemide* (Furosemide*) 40 Mg Tablet, 40 MG PO BID for 30 Days, TAB Prov:ALEKSANDRA SALCIDO MD 02/04/18 Reported Medications Rifampin* (Rifampin*) 300 Mg Capsule, 600 MG PO DAILY, CAP 04/07/18 Pantoprazole* (Protonix*) 40 Mg Tablet.dr, 40 MG PO DAILY, TAB 04/07/18 Losartan Potassium* (Losartan Potassium*) 50 Mg Tablet, 50 MG PO BID, TAB 04/07/18 Lorazepam* (Ativan*) 0.5 Mg Tablet, 0.5 MG PO HS PRN for ANXIETY, #30 TAB 01/28/18 Insulin Glargine,Hum.rec.anlog (Basaglar Kwikpen U-100) 100 Unit/1 Ml Insuln.pen, 30 UNIT SC QHS, EA 01/28/18 Quetiapine Fumarate* (Seroquel*) 100 Mg Tablet, 100 MG PO DAILY, #30 TAB 01/28/18 Potassium Chloride* (Potassium Chloride*) 20 Meq Tablet.er, 20 MEQ PO DAILY, TAB.SA 01/28/18 Metformin Hcl* (Metformin Hcl*) 1,000 Mg Tablet, 1000 MG PO WITH BREAKFAST DINNE , #60 TAB 01/28/18 Docusate Sodium* (Colace*) 100 Mg Capsule, 100 MG PO Q12H, #60 CAP 01/28/18 Bisacodyl* (Bisacodyl*) 5 Mg Tablet.dr, 5 MG PO DAILY PRN for NEEDED, TAB 01/28/18 Atorvastatin Calcium (Atorvastatin Calcium) 10 Mg Tablet, 10 MG PO QHS, #30 TAB 01/28/18 Aspirin* (Aspirin* EC) 81 Mg Tablet.dr, 81 MG PO DAILY, TAB 01/28/18 Discontinued Scripts Prednisone* (Prednisone*) 20 Mg Tab, 20 MG PO DAILY, #20 TAB 20 mg x 4 days 10 mg x 3 days 5 mg x 2 days 2.5 mg x1 day then dc Prov:ALEKSANDRA SALCIDO MD 02/04/18 Allergies Allergies: Coded Allergies: morphine (Verified Allergy, Mild, 04/15/18) PMhx/Soc hypertension, gastritis, COPD, CHF, CAD, diabetes mellitus, hyperlipidemia, morbid obesity, systolic CHF with LVEF of 25%, atrial fibrillation, cocaine abuse History of Surgery: Yes (, hernia sx, gallbladder removal) Anesthesia Reaction: No Hx Neurological Disorder: Yes Hx Respiratory Disorders: Yes (COPD, CHRONIC RESP. FAILURE) Hx Cardiac Disorders: Yes (HTN) Hx Psychiatric Problems: Yes (Bipolar) Hx Miscellaneous Medical Probl: No Hx Alcohol Use: Yes Hx Substance Use: No Hx Tobacco Use: Yes Smoking Status: Former smoker FmHx Family History: diabetes Physical Exam Vitals Vital Signs Date Temp Pulse Resp B/P (MAP) Pulse Ox O2 O2 Flow FiO2 Time Delivery Rate 04/15/18 117 21 99 Nasal 2.0 15:35 Cannula 04/15/18 Nasal 2 15:28 Cannula 04/15/18 Nasal 2.0 15:01 Cannula 04/15/18 99.9 120 25 128/74 100 15:01 (92) 04/15/18 118 25 128/74 100 Nasal 15:00 (92) Cannula Physical Exam GENERAL: Well-developed, tachypnea, dyspneic, afebrile HEENT: Moist mucous membranes, pink conjunctiva, no cervical spine tenderness or step-off deformities, no goiter, no jaundice or icterus, extraocular movements intact without pain. No submandibular induration, and no pharyngeal erythema NEURO: Alert and oriented 3, cranial nerves II through XII intact bilaterally, pupils equal round reactive to light, no focal deficits or facial asymmetry, sensation intact distally Strength 5/5 in upper and lower extremities bilaterally CARDIAC: Tachycardic and regular LUNGS: Poor breath sounds bilaterally, mild wheezing bilaterally, no crackles or stridor ABDOMEN: Soft nontender, no guarding, no rigidity, no rebound, no psoas sign no obturator sign. SKIN: Warm and dry to touch, no abrasions, contusions, or hematomas, no lacerations, no ecchymosis, no target lesions, and without ulcers EXTREMITIES: No clubbing cyanosis or edema, calves are bilaterally symmetrical, no Homans sign, no popliteal cord sign. Distal pulses equal and bilateral PSYCH: Normal affect without agitation or irritability Result Diagram: 04/15/18 1745 04/15/18 1745 Results 24 hrs Laboratory Tests Test 04/15/18 15:04 Blood Gas Specimen Source Blood arterial Arterial Blood Date Drawn 04/15/2018 3:29:58 PM Arterial Blood pH (Temp corrected) 7.403 Arterial Blood pCO2 (Temp correct) 57.5 mmhg Arterial Blood pO2 (Temp corrected) 70.1 mmHG Arterial Blood HCO3 35.1 mmol/L Arterial Blood Base Excess 8.3 mmol/L Arterial Blood Oxygen Saturation 94.7 mmHG Justice Test ACCEPTAB Arterial Blood Gas Puncture Site Right Radial Arterial Blood Carboxyhemoglobin 1.6 % Arterial Blood Methemoglobin 0.3 % Blood Gas A-a O2 Differential 61.7 mmHg Oxyhemoglobin Percent 92.9 % Blood Gas Temperature 37.0 C Blood Gas Modality NASAL CANNULA FiO2 28.0 % Blood Gas Notified Whom M.D. Blood Gas Notified Time 04/15/2018 3:41:24 PM Current Medications Medications Dose Sig/Eugenio Start Time Status Last (Trade) Ordered Route PRN Stop Time Admin Dose Reason Admin Albuterol 10 mg ONCE STAT 04/15/18 DC 04/15/18 (Proventil INH 15:04 15:26 0.5% (Neb)) 04/15/18 15:12 Ipratropium 1 mg ONCE STAT 04/15/18 DC 04/15/18 [place] INH 15:04 15:26 (Atrovent 04/15/18 0.02% 15:12 (Neb)) 125 mg ONCE STAT 04/15/18 DC 04/15/18 Methylprednis IV 15:04 16:20 olone Sodium 04/15/18 Succinate 15:12 (Solu-Medrol) Furosemide 60 mg ONCE ONCE 04/15/18 DC 04/15/18 (Lasix) IV 16:00 16:21 04/15/18 16:01 Procedures/[facility] IV line was established patient was placed on compliance monitor rhythm strip revealed a sinus tachycardia at 120 bpm with upright P and T waves. Patient was afebrile EKG performed, read by me revealed a sinus tachycardia at 117 bpm, normal axis, narrow QRS complex, no concerning ST elevations or depressions noted 1 view chest x-ray performed, read by me: Revealed bilateral pulmonary infiltrates and edema, no pneumothorax, no air under the diaphragm I administered albuterol 10 mg via nebulizer, ipratropium 1 mg via nebulizer, and methylprednisolone 125 mg IV x1. ABG performed on low flow oxygen: PH 7.40, PCO2 58, PO2 70. Respiratory acidosis. Patient already received aspirin for her chest pain I administered furosemide 60 mg IV x1. Labs: CBC reveals severe leukocytosis of 47, electrolytes unremarkable, troponin negative, BNP elevated. Influenza swab: Influenza AB swabs negative Critical Care: Time: 45 minutes, this was time separate from other billable procedures. Treatments/Evaluations: Close monitoring and treatment of unstable vital signs, cardiorespiratory, and neurologic status, while maintaining tight balance of fluid, respiratory, and cardiac interventions. Given the patient's chest x-ray findings I also administered levofloxacin 750 mg IV x1, and Percocet 1 tablet p.o. for pain. Patient admitted to telemetry setting for continued medical management, diuresis, bronchodilator therapy Departure Diagnosis: Primary Impression: COPD (chronic obstructive pulmonary disease) COPD type: COPD with acute exacerbation Qualified Codes: J44.1 - Chronic obstructive pulmonary disease with (acute) exacerbation Additional Impressions: Acute CHF Heart failure type: combined systolic and diastolic Qualified Codes: I50.41 - Acute combined systolic (congestive) and diastolic (congestive) heart failure Bilateral pneumonia Pneumonia type: due to unspecified organism Lung location: lower lobe of lung Qualified Codes: J18.1 - Lobar pneumonia, unspecified organism Condition: Serious ELLE BROWER MD Apr 15, 2018 15:27
[2018-04-15] MEDS ORDERED: FUROSEMIDE 40 MG INJ IV ONE (16:00)
[2018-04-15] MEDS ORDERED: OXYCODONE/ACETAMINOPHEN (5/325) TAB PO ONE (16:30)
[2018-04-15] MEDS ORDERED: LEVOFLOXACIN 750MG/D5W (PMX) 150 ML IVPB ONE (16:30)
[2018-04-15] MEDS ORDERED: LIDOCAINE 1% (MPF) 5 ML VIAL SC ONE (16:30)
--- NOTE | 2018-04-15 16:58 | QN ---
Documentation Comment seen and examined ALEKSANDRA SALCIDO MD Apr 15, 2018 16:58
[2018-04-15] MEDS ORDERED: NACL 0.9% 3 ML SYG IV SCH (17:00)
[2018-04-15] MEDS ORDERED: ONDANSETRON 4 MG INJ IV PRN (17:00)
[2018-04-15] MEDS ORDERED: GLUCOSE GEL 15 GRAM TUBE BUCCAL PRN (17:30)
[2018-04-15] MEDS ORDERED: DEXTROSE 50% 50 ML SYRINGE IV PRN ×2 (17:30)
[2018-04-15] MEDS ORDERED: GLUCAGON 1 MG INJ IM PRN (17:30)
[2018-04-15] MEDS ORDERED: GLUCOSE GEL 15 GRAM TUBE PO PRN ×2 (17:30)
--- NOTE | 2018-04-15 17:30 | NUR ---
PICC Insertion. Received patient in the ER Department at bedside for peripherally inserted central catheter (PICC) insertion. Patient awake, alert, oriented x 4. Patient has had previous PICC's in the past. Procedure reviewed, patient agreed to proceed. Signed consent on chart for PICC. RUE prepped with chlorhexidene, then maximum barrier drape applied. 5 FR double lumen Arrow Power PICC inserted into brachial vein, using U/S guidance and sterile technique. CXR x2 performed; tip confirmed in place per Dr. Huertas. Total length 45cm 0cm exposed. RAC 40. Sterile dressing applied. Patient tolerated procedure well.
--- NOTE | 2018-04-15 17:31 | HP ---
DATE OF ADMISSION: 04/15/2018 REASON FOR ADMISSION: Chest pain and shortness of breath. HISTORY OF PRESENTING ILLNESS: This is a 47-year-old female with a past medical history of diabetes, hypertension, hyperlipidemia, morbid obesity, systolic congestive heart failure, EF of 25% to 30%, p sychiatric disorder, abdominal pain secondary to abdominal wall hernia, AFib, who was admitted to [facility] on 04/07/2018. At that time, the patient had left AMA because she had to t jesse care of her son's issues. However, the patient said that after she left home, she had not been f eeling well. She had been having chest pain and shortness of breath for the last 2 days. She claims that she never used Lasix at home. At this time, she is feeling much more sick. She is also having fevers and chills and feels that she is having a pneumonia and made her come to the emergency depart ment. On arrival to ED, vital signs showed initial blood pressure of 128/74, pulse was 180, temperat ure was 99.9. The patient had a chest x-ray that showed persistent moderate global enlargement of ca rdiomediastinal silhouette, compatible with cardiomegaly or pericardial effusion, pulmonary vascular congestion again congested, interval development of patches of airspace opacification in the left mid dle lobe. No effusion is evident. The patient received albuterol, Atrovent, Solu-Medrol, Lasix 60 a nd Levaquin and was admitted for further management. PAST MEDICAL HISTORY: 1. Diabetes. 2. Hypertension. 3. History of CHF, systolic with EF of 25% to 30%. 4. Cardiomyopathy. 5. History of AFib. 6. Dyslipidemia. 7. Psychiatric disorder. 8. Anemia. 9. Morbidly obese. 10. Abdominal pain secondary to abdominal wall hernia. ALLERGIES: MORPHINE. PAST SURGICAL HISTORY: None. SOCIAL HISTORY: Former smoker. Denies any history of recreational drug use; however, urine tox was positive for cocaine on [facility] on last admission. Lives with kids at home. FAMILY HISTORY: Noncontributory. REVIEW OF SYSTEMS: The patient complains of shortness of breath for the last 2 days, also chest pain , pressure-like pain in the chest. The patient has not been taking her Lasix at home. Also, complai ns of cough and has been wheezing. The patient also complains of fevers and chills at home. The pat ient also complains of lower extremity edema. Denied any abdominal pain, nausea, vomiting, diarrhea, hematemesis, any melena, any bright red per rectum. PHYSICAL EXAMINATION: VITAL SIGNS: Currently blood pressure is 128/74, pulse 120, currently 117, AFib, temperature 99.9, p ulse 21, saturating on 2 liters. GENERAL: The patient is awake, alert, oriented, appears to be in moderate distress, able to speak fu ll sentences. The patient is morbidly obese. NECK: Supple. JVD is appreciated. HEART: Irregularly irregular. LUNGS: There are diffuse rhonchi in all lung esqueda. ABDOMEN: Umbilical hernia, vertically reducible. EXTREMITIES: 1 to 2+ edema. Thick extremities. LABORATORY DATA: CBC is pending. DIAGNOSTIC DATA: Chest x-ray showed persistent moderate global enlargement of cardiomediastinal silh ouette, pulmonary vascular congested, interval development of patchy airspace consolidation, left mid lung zone and right lower lung zone. No effusion is evident. EKG shows AFib. ASSESSMENT AND PLAN: A 47-year-old female who presented with: 1. Chest pain. Rule out acute coronary syndrome. 2. Shortness of breath likely secondary to congestive heart failure exacerbation. The patient has b een noncompliant with her Lasix. The patient left AMA last time. The patient also has EF of 20% to 30%. Now, the patient is also having fevers. We cannot rule out underlying pneumonia. 3. Acute on chronic systolic congestive heart failure. 4. Cardiomyopathy with EF of 25% to 30%. 5. Hypertension. 6. Atrial fibrillation on Eliquis. 6. History of cocaine use. 7. Morbidly obese. 8. Abdominal pain secondary to abdominal wall hernia. PLAN: At this period of time, the patient will be admitted to telemetry. We will continue the patie nt on IV Lasix, nebs, steroids, IV antibiotics. We will also call pulmonary and cardiology consultat ion. We will also check for flu swab. Rest of the treatment will depend on the patient's hospitaliz ation course. Dictated By: ALEKSANDRA MOSS/DEENA Conf#: [id number] DID#: [id number] CC: GAGAN GARCIA MD; ELLE BROWER MD;*End*
[2018-04-15 19:20] VITALS: BP 153/59; PULSE 113; RESP 18
[2018-04-15 20:00] VITALS: PULSE 115
[2018-04-15] MEDS: FUROSEMIDE 40 MG INJ IV SCH (20:44)
[2018-04-15] MEDS: ATORVASTATIN 10 MG TAB PO SCH (20:44)
[2018-04-15] MEDS: ACETAMINOPHEN 325 MG TAB PO PRN (20:44)
[2018-04-15] MEDS: ISOSORBIDE DINITRATE 10 MG TAB PO SCH (20:45)
[2018-04-15] MEDS ORDERED: INSULIN GLARGINE [LANtus] 3 ML PEN SC SCH (21:00)
[2018-04-15] MEDS ORDERED: ALBUTEROL/IPRATROPIUM (NEB) 3 ML AMP HHN SCH (21:00)
[2018-04-15 21:33] VITALS: Ht 154.9 cm; Wt 129.6 kg
--- NOTE | 2018-04-15 21:47 | NUR ---
Nurse Note Pt came from ED at 1920, pt assessed, placed on tele monitor. Pt ambulatory with assist. Pt refusing bed alarm, will continue to educate and monitor pt. Awaiting insulin from pharmacy, state it should be on the way. Will check BP and administer as meds arrive on floor.
[2018-04-15] MEDS: METHYLPREDNISOLONE 40 MG INJ IV SCH (21:59)
[2018-04-15] MEDS: INSULIN ASPART [NOVOLOG] 3 ML PEN SC SCH (22:13)
--- NOTE | 2018-04-15 22:57 | NUR ---
Nurse Note Dr Martinez notified for pain, anxiety, and breathing treatment orders. states no new pain med orders at this time d/t pt diagnosis and that Dr Durant will see and assess pt in AM. Will inform pt and continue to assess. Addendum: 04/15/18 at 2308 by SUGEY STEWART RN also notified of BG level, no new orders at this time, will recheck BG at 0200.
[2018-04-15 23:56] VITALS: BP 121/63; PULSE 103; RESP 18
[2018-04-16] VITALS (12 sets, daily range): BP systolic 92–116; BP diastolic 50–64; PULSE 58–123; RESP 18–20
[2018-04-16] MEDS: IPRATROPIUM (NEB) 0.5 MG/2.5 ML AMP HHN SCH ×6 (01:19→21:09)
[2018-04-16] MEDS: LEVALBUTEROL (NEB) 1.25 MG/0.5 ML AMP HHN SCH ×6 (01:19→21:09)
[2018-04-16] MEDS: ACCU-CHEK XX SCH (01:38)
[2018-04-16] MEDS ORDERED: ACCU-CHEK XX SCH (02:00)
[2018-04-16] MEDS: ACETAMINOPHEN 325 MG TAB PO PRN (03:28)
[2018-04-16] MEDS: LORAZEPAM 1 MG TAB PO PRN ×2 (03:34→20:15)
[2018-04-16] MEDS: PANTOPRAZOLE 40 MG INJ IV SCH (05:30)
[2018-04-16] MEDS: METHYLPREDNISOLONE 40 MG INJ IV SCH ×3 (05:31→22:27)
--- NOTE | 2018-04-16 06:17 | NUR ---
EOSS Pt AOx4, ambulatory with assist, unsteady on her feet, ST on monitor, with elevated BG during night, MD aware. Pt currently resting in bed, call light within reach, refusing bed alarm, will endorse to oncoming RN.
[2018-04-16] MEDS: INSULIN ASPART [NOVOLOG] 3 ML PEN SC SCH ×7 (08:25→22:27)
[2018-04-16] MEDS: LISINOPRIL 5 MG TAB PO SCH (09:00)
[2018-04-16] MEDS: ASPIRIN (EC) 81 MG TAB PO SCH (09:19)
[2018-04-16] MEDS: ISOSORBIDE DINITRATE 10 MG TAB PO SCH ×2 (09:19→13:30)
[2018-04-16] MEDS: FUROSEMIDE 40 MG INJ IV SCH ×2 (09:19→13:30)
[2018-04-16] MEDS: DOCUSATE SODIUM 100 MG CAP PO PRN (09:20)
--- NOTE | 2018-04-16 10:07 | PN ---
Date/Time of Note Date/Time of Note DATE: 04/16/18 TIME: 10:07 Assessment/Plan VTE Prophylaxis Pharmacological prophylaxis: NA/contraindicated Pharm contraindication: low risk/ambulating Lines/Catheters IV Catheter Type (from Nrsg): PICC Line Central line still needed: No Urinary Cath still in place: Yes Reason Cath still needed: other (indicate) Assessment/Plan Hospital Course 47-year-old female who presented with: 1. Chest pain. Rule out acute coronary syndrome. , denies any CP currently 2. Shortness of breath likely secondary to congestive heart failure exacerbation. The patient has been noncompliant with her Lasix. The patient left AMA last time. The patient also has EF of 20% to 30%. Now, the patient is also having fevers. We cannot rule out underlying pneumonia. 3. Acute on chronic systolic congestive heart failure. 4. Cardiomyopathy with EF of 25% to 30%. 5. Hypertension. 6. Atrial fibrillation on Eliquis. 6. History of cocaine use. 7. Morbidly obese. 8. Abdominal pain secondary to abdominal wall hernia. 9 Leukocytosis Recs - cw nebs - cw solumedrol 60 q8 - abx > cefepime - pul consult - cards consult - Influenza A and B neg - DM control, increase lantus and mealtime insulin Result Diagram: 04/15/18 1745 04/16/18 0554 Results 24hrs Laboratory Tests Test 04/15/18 15:04 04/15/18 17:45 04/15/18 21:58 04/16/18 00:23 Blood Gas Blood arterial Specimen Source Arterial Blood 04/15/2018 3:29 Date Drawn :58 PM Arterial Blood 7.403 pH (Temp corrected ) Arterial Blood 57.5 H pCO2 (Temp correct) Arterial Blood 70.1 L pO2 (Temp corrected ) Arterial Blood 35.1 H HCO3 Arterial Blood 8.3 H Base Excess Arterial Blood 94.7 L Oxygen Saturati on Justice Test ACCEPTAB Arterial Blood Right Radial Gas Puncture Site Arterial 1.6 Blood Carboxyhe moglobin Arterial Blood 0.3 Methemoglobin Blood Gas A-a 61.7 H O2 Differential Oxyhemoglobin 92.9 L Percent Blood Gas 37.0 Temperature Blood Gas NASAL CANNULA Modality FiO2 28.0 Blood Gas Radha Notified Whom Blood Gas 04/15/2018 3:41 Notified Time :24 PM White Blood 47.4 #H Count Red Blood Count 4.40 Hemoglobin 13.1 Hematocrit 41.3 Mean 93.9 Corpuscular Volume Mean 29.8 Corpuscular Hemoglobin Mean 31.7 L Corpuscular Hemoglobin Conc ent Red Cell 15.1 H Distribution Width Platelet Count 213 # Mean Platelet 11.5 H Volume Immature 5.800 H Granulocytes % Neutrophils % Segmented 65 Neutrophils % (Manual) Band 23 H Neutrophils % (Manual) Lymphocytes % Lymphocytes % 3 L (Manual) Reactive 2 H Lymphocytes % (Manual) Monocytes % Monocytes % 3 (Manual) Eosinophils % Eosinophils % 2 (Manual) Basophils % Metamyelocytes 2 H % (manual) Nucleated Red 0.0 Blood Cells % Immature 2.740 H Granulocytes # Neutrophils # Neutrophils # 36.0 H (Manual) Band 10.9 H Neutrophils # Lymphocytes 1.4 (Manual) Lymphocytes # Reactive 0.9 H Lymphocytes # Monocytes # Monocytes # 1.4 H (Manual) Eosinophils # Basophils # Metamyelocytes 0.9 H # Nucleated Red Blood Cells # Platelet NORMAL Estimate Polychromasia 2+ Anisocytosis 1+ Prothrombin 14.3 Time Prothrombin 1.1 Time Ratio INR 1.09 International Normalized Rati o Activated 26.0 Partial Thrombo plast Time Sodium Level 138 Potassium Level 4.4 Chloride Level 94 L Carbon Dioxide 35 H Level Anion Gap 9 Blood Urea 13 Nitrogen Creatinine 0.59 Est Glomerular > 60 Filtrat Rate mL/min Glucose Level 288 H Calcium Level 8.9 Total Bilirubin 0.8 Direct 0.00 Bilirubin Indirect 0.8 Bilirubin Aspartate Amino 29 Transf (AST/SGO T) Alanine 29 Aminotransferas e (ALT/SGPT) Alkaline 104 Phosphatase Troponin I 0.026 0.034 B-Type 9510 H Natriuretic Peptide Total Protein 5.9 L Albumin 3.2 L Globulin 2.70 Albumin/Globuli 1.18 n Ratio Lipase 43 Bedside Glucose 314 H Creatine Kinase 39 Creatine Kinase 3.3 Index Creatinine 1.28 Kinase MB (Mass) Test 04/16/18 01:29 04/16/18 05:54 04/16/18 08:03 Bedside Glucose 311 H 310 H Sodium Level 140 Potassium Level 3.6 Chloride Level 91 L Carbon Dioxide 37 H Level Anion Gap 12 Blood Urea 17 Nitrogen Creatinine 0.69 Est Glomerular > 60 Filtrat Rate mL/min Glucose Level 345 H Calcium Level 8.7 Phosphorus 2.5 Level Magnesium Level 1.5 L Total Bilirubin 0.5 Direct 0.00 Bilirubin Indirect 0.5 Bilirubin Aspartate Amino 23 Transf (AST/SGO T) Alanine 19 Aminotransferas e (ALT/SGPT) Alkaline 106 Phosphatase Creatine Kinase 37 Creatine Kinase 3.9 Index Creatinine 1.44 Kinase MB (Mass) Troponin I 0.024 Total Protein 6.2 Albumin 3.3 Globulin 2.90 Albumin/Globuli 1.13 n Ratio Subjective 24 Hr Interval Summary Free Text/Dictation Feels better today Exam/Review of Systems Vital Signs Vitals Vital Signs Date Temp Pulse Resp B/P (MAP) Pulse Ox O2 O2 Flow FiO2 Time Delivery Rate 04/16/18 102 20 95 Nasal 3.0 08:01 Cannula 04/16/18 98.5 92/63 (73) 07:23 04/15/18 28 20:52 Intake and Output 04/15/18 04/15/18 04/16/18 1515:00 23:00 07:00 IntakeIntake Total 200 ml OutputOutput Total 1300 ml BalanceBalance -1100 ml Exam GENERAL: The patient is awake, alert, oriented, appears to be in moderate distress, able to speak full sentences. The patient is morbidly obese. NECK: Supple. JVD is appreciated. HEART: Irregularly irregular. LUNGS: There are diffuse rhonchi in all lung esqueda improving. ABDOMEN: Umbilical hernia, vertically reducible. EXTREMITIES: 1 to 2+ edema. Thick extremities. Medications Medications Current Medications IV Flush (NS 3 ml) 3 ml PER PROTOCOL IV ; Start 04/15/18 at 17:00 Ondansetron HCl (Zofran Inj) 4 mg Q6H PRN IV NAUSEA AND/OR VOMITING; Start 04/15/18 at 17:00 Acetaminophen (Tylenol Tab) 650 mg Q6H PRN PO PAIN LEVEL 1-3 OR FEVER Last administered on 04/16/18at 03:28; Admin Dose 650 MG; Start 04/15/18 at 17:00 Docusate Sodium (Colace) 100 mg Q12H PRN PO CONSTIPATION Last administered on 04/16/18at 09:20; Admin Dose 100 MG; Start 04/15/18 at 17:00 Pantoprazole (Protonix Iv) 40 mg DAILY@06 IV Last administered on 04/16/18at 05:30; Admin Dose 40 MG; Start 04/16/18 at 06:00 Furosemide (Lasix) 40 mg TID IV Last administered on 04/16/18at 09:19; Admin Dose 40 MG; Start 04/15/18 at 21:00 Methylprednisolone Sodium Succinate (Solu-Medrol) 60 mg Q8 IV Last administered on 04/16/18at 05:31; Admin Dose 60 MG; Start 04/15/18 at 22:00 Levofloxacin/ Dextrose 150 ml @ 100 mls/hr Q24H IVPB ; Start 04/16/18 at 18:00 Aspirin (Halfprin) 81 mg DAILY PO Last administered on 04/16/18at 09:19; Admin Dose 81 MG; Start 04/16/18 at 09:00 Atorvastatin Calcium (Lipitor) 10 mg QHS PO Last administered on 04/15/18at 20:44; Admin Dose 10 MG; Start 04/15/18 at 21:00 Digoxin (Digoxin) 0.125 mg DAILY@13 PO ; Start 04/16/18 at 13:00 Insulin Glargine (Lantus) 30 unit QHS SC Last administered on 04/15/18at 22:03; Admin Dose 30 UNIT; Start 04/15/18 at 21:00 Isosorbide Dinitrate (Isordil) 10 mg TID PO Last administered on 04/16/18at 09:19; Admin Dose 10 MG; Start 04/15/18 at 21:00 Lisinopril (Zestril) 2.5 mg DAILY PO ; Start 04/16/18 at 09:00 Insulin Aspart (Novolog Insulin Pen) 5 unit WITH MEALS SC Last administered on 04/16/18at 08:25; Admin Dose 5 UNIT; Start 04/16/18 at 07:55 Diagnostic Test (Pha) (Accu-Chek) 1 ea 02 XX Last administered on 04/16/18at 01:38; Admin Dose 1 EA; Start 04/16/18 at 02:00 Insulin Aspart (Novolog Insulin Pen) NOVOLOG *MODERATE* ALGORITHM WITH MEALS BEDTIME SC Last administered on 04/16/18at 08:26; Admin Dose 10 UNIT; Start 04/15/18 at 21:00 Miscellaneous Information 1 ea NOTE XX ; Start 04/15/18 at 17:30 Glucose (Glutose) 15 gm Q15M PRN PO DECREASED GLUCOSE; Start 04/15/18 at 17:30 Glucose (Glutose) 22.5 gm Q15M PRN PO DECREASED GLUCOSE; Start 04/15/18 at 17:30 Dextrose (D50w Syringe) 25 ml Q15M PRN IV DECREASED GLUCOSE; Start 04/15/18 at 17:30 Dextrose (D50w Syringe) 50 ml Q15M PRN IV DECREASED GLUCOSE; Start 04/15/18 at 17:30 Glucagon (Glucagen) 1 mg Q15M PRN IM DECREASED GLUCOSE; Start 04/15/18 at 17:30 Glucose (Glutose) 15 gm Q15M PRN BUCCAL DECREASED GLUCOSE; Start 04/15/18 at 17:30 Lorazepam (Ativan) 1 mg BID PRN PO ANXIETY Last administered on 04/16/18at 03:34; Admin Dose 1 MG; Start 04/15/18 at 23:00 Levalbuterol (Xopenex Neb) 1.25 mg Q4H RESP THERAPY HHN Last administered on 04/16/18at 08:01; Admin Dose 1.25 MG; Start 04/16/18 at 01:00 Ipratropium [place] (Atrovent 0.02% (Neb)) 0.5 mg Q4H RESP THERAPY HHN Last administered on 04/16/18at 08:00; Admin Dose 0.5 MG; Start 04/16/18 at 01:00 ALEKSANDRA SALCIDO MD Apr 16, 2018 10:07
[2018-04-16] MEDS: HYDROCODONE/APAP (5/325) TAB PO PRN ×2 (10:42→22:27)
--- NOTE | 2018-04-16 11:04 | CONS ---
Date/Time of Note Date/Time of Note DATE: 04/16/18 TIME: 10:51 Assessment/Plan Assessment/Plan Assessment/Plan Assessment recommendations; 1 patient admitted with acute bronchitis possibly pneumonia because of signific ant leukocytosis as well as patchy bilateral infiltrates which are suggestive of either pneumonia or CHF or combination of both. Patient however currently on appropriate antimicrobial regimen. 2. Chronic Respiratory failure. 3. Underlying obesity hypoventilation syndrome. 4. Hemoptysis likely from pulmonary edema. 5. Diabetes. 6. Chronic atrial fibrillation. Continue with supportive care. Result Diagram: 04/15/18 1745 04/16/18 0554 Results 24hrs Laboratory Tests Test 04/15/18 15:04 04/15/18 17:45 04/15/18 21:58 04/16/18 00:23 Blood Gas Blood arterial Specimen Source Arterial Blood 04/15/2018 3:29 Date Drawn :58 PM Arterial Blood 7.403 pH (Temp corrected ) Arterial Blood 57.5 H pCO2 (Temp correct) Arterial Blood 70.1 L pO2 (Temp corrected ) Arterial Blood 35.1 H HCO3 Arterial Blood 8.3 H Base Excess Arterial Blood 94.7 L Oxygen Saturati on Justice Test ACCEPTAB Arterial Blood Right Radial Gas Puncture Site Arterial 1.6 Blood Carboxyhe moglobin Arterial Blood 0.3 Methemoglobin Blood Gas A-a 61.7 H O2 Differential Oxyhemoglobin 92.9 L Percent Blood Gas 37.0 Temperature Blood Gas NASAL CANNULA Modality FiO2 28.0 Blood Gas M.D. Notified Whom Blood Gas 04/15/2018 3:41 Notified Time :24 PM White Blood 47.4 #H Count Red Blood Count 4.40 Hemoglobin 13.1 Hematocrit 41.3 Mean 93.9 Corpuscular Volume Mean 29.8 Corpuscular Hemoglobin Mean 31.7 L Corpuscular Hemoglobin Conc ent Red Cell 15.1 H Distribution Width Platelet Count 213 # Mean Platelet 11.5 H Volume Immature 5.800 H Granulocytes % Neutrophils % Segmented 65 Neutrophils % (Manual) Band 23 H Neutrophils % (Manual) Lymphocytes % Lymphocytes % 3 L (Manual) Reactive 2 H Lymphocytes % (Manual) Monocytes % Monocytes % 3 (Manual) Eosinophils % Eosinophils % 2 (Manual) Basophils % Metamyelocytes 2 H % (manual) Nucleated Red 0.0 Blood Cells % Immature 2.740 H Granulocytes # Neutrophils # Neutrophils # 36.0 H (Manual) Band 10.9 H Neutrophils # Lymphocytes 1.4 (Manual) Lymphocytes # Reactive 0.9 H Lymphocytes # Monocytes # Monocytes # 1.4 H (Manual) Eosinophils # Basophils # Metamyelocytes 0.9 H # Nucleated Red Blood Cells # Platelet NORMAL Estimate Polychromasia 2+ Anisocytosis 1+ Prothrombin 14.3 Time Prothrombin 1.1 Time Ratio INR 1.09 International Normalized Rati o Activated 26.0 Partial Thrombo plast Time Sodium Level 138 Potassium Level 4.4 Chloride Level 94 L Carbon Dioxide 35 H Level Anion Gap 9 Blood Urea 13 Nitrogen Creatinine 0.59 Est Glomerular > 60 Filtrat Rate mL/min Glucose Level 288 H Calcium Level 8.9 Total Bilirubin 0.8 Direct 0.00 Bilirubin Indirect 0.8 Bilirubin Aspartate Amino 29 Transf (AST/SGO T) Alanine 29 Aminotransferas e (ALT/SGPT) Alkaline 104 Phosphatase Troponin I 0.026 0.034 B-Type 9510 H Natriuretic Peptide Total Protein 5.9 L Albumin 3.2 L Globulin 2.70 Albumin/Globuli 1.18 n Ratio Lipase 43 Bedside Glucose 314 H Creatine Kinase 39 Creatine Kinase 3.3 Index Creatinine 1.28 Kinase MB (Mass) Test 04/16/18 01:29 04/16/18 05:54 04/16/18 08:03 Bedside Glucose 311 H 310 H Sodium Level 140 Potassium Level 3.6 Chloride Level 91 L Carbon Dioxide 37 H Level Anion Gap 12 Blood Urea 17 Nitrogen Creatinine 0.69 Est Glomerular > 60 Filtrat Rate mL/min Glucose Level 345 H Calcium Level 8.7 Phosphorus 2.5 Level Magnesium Level 1.5 L Total Bilirubin 0.5 Direct 0.00 Bilirubin Indirect 0.5 Bilirubin Aspartate Amino 23 Transf (AST/SGO T) Alanine 19 Aminotransferas e (ALT/SGPT) Alkaline 106 Phosphatase Creatine Kinase 37 Creatine Kinase 3.9 Index Creatinine 1.44 Kinase MB (Mass) Troponin I 0.024 Total Protein 6.2 Albumin 3.3 Globulin 2.90 Albumin/Globuli 1.13 n Ratio Consultation Date/Type/Reason Admit Date/Time Apr 15, 2018 at 16:15 Date of Consultation: Apr 16, 2018 Type of Consult Pulmonary History of presenting illness; patient is a 47-year-old lady who came into the hospital again with complaints of having shortness of breath, coughing congestion sputum production and hemoptysis with the last 2 days. During last admission patient signed out AMA due to some personal reasons. And according to her she never improved after leaving the hospital. She denies any high fever, chest pain, fever or chills. Past medical history; 1. Type II respiratory failure. 2. COPD. 3. Cardiomyopathy with poor ejection fraction. 4. History of depression and psychiatric disorder. Medications; reviewed. Allergies; morphine. Social history; positive for smoking. Family history; noncontributory. Review of systems; denies any headache, seizures. Complains of shortness of breath, coughing, sputum production, hemoptysis, wheezing. Complains of orthopnea. Denies any melena, hematochezia, abdominal pain, nausea vomiting. General exam; middle-aged woman, morbidly obese, awake alert, currently in no distress. Past Medical History Medications Current Medications IV Flush (NS 3 ml) 3 ml PER PROTOCOL IV ; Start 04/15/18 at 17:00 Ondansetron HCl (Zofran Inj) 4 mg Q6H PRN IV NAUSEA AND/OR VOMITING; Start 04/15/18 at 17:00 Acetaminophen (Tylenol Tab) 650 mg Q6H PRN PO PAIN LEVEL 1-3 OR FEVER Last administered on 04/16/18at 03:28; Admin Dose 650 MG; Start 04/15/18 at 17:00 Docusate Sodium (Colace) 100 mg Q12H PRN PO CONSTIPATION Last administered on 04/16/18 09:20; Admin Dose 100 MG; Start 04/15/18 at 17:00 Pantoprazole (Protonix Iv) 40 mg DAILY@06 IV Last administered on 04/16/18 05:30; Admin Dose 40 MG; Start 04/16/18 at 06:00 Furosemide (Lasix) 40 mg TID IV Last administered on 04/16/18 09:19; Admin Dose 40 MG; Start 04/15/18 at 21:00 Methylprednisolone Sodium Succinate (Solu-Medrol) 60 mg Q8 IV Last administered on 04/16/18 05:31; Admin Dose 60 MG; Start 04/15/18 at 22:00 Levofloxacin/ Dextrose 150 ml @ 100 mls/hr Q24H IVPB ; Start 04/16/18 at 18:00 Aspirin (Halfprin) 81 mg DAILY PO Last administered on 12/27/18at 09:19; Admin Dose 81 MG; Start 04/16/18 at 09:00 Atorvastatin Calcium (Lipitor) 10 mg QHS PO Last administered on 04/15/18at 20:44; Admin Dose 10 MG; Start 04/15/18 at 21:00 Digoxin (Digoxin) 0.125 mg DAILY@13 PO ; Start 04/16/18 at 13:00 Isosorbide Dinitrate (Isordil) 10 mg TID PO Last administered on 04/16/18at 09:19; Admin Dose 10 MG; Start 04/15/18 at 21:00 Lisinopril (Zestril) 2.5 mg DAILY PO ; Start 04/16/18 at 09:00 Insulin Aspart (Novolog Insulin Pen) 5 unit WITH MEALS SC Last administered on 04/16/18at 08:25; Admin Dose 5 UNIT; Start 04/16/18 at 07:55 Diagnostic Test (Pha) (Accu-Chek) 1 ea 02 XX Last administered on 04/16/18at 01:38; Admin Dose 1 EA; Start 04/16/18 at 02:00 Insulin Aspart (Novolog Insulin Pen) NOVOLOG *MODERATE* ALGORITHM WITH MEALS BEDTIME SC Last administered on 04/16/18at 08:26; Admin Dose 10 UNIT; Start 04/15/18 at 21:00 Miscellaneous Information 1 ea NOTE XX ; Start 04/15/18 at 17:30 Glucose (Glutose) 15 gm Q15M PRN PO DECREASED GLUCOSE; Start 04/15/18 at 17:30 Glucose (Glutose) 22.5 gm Q15M PRN PO DECREASED GLUCOSE; Start 04/15/18 at 17:30 Dextrose (D50w Syringe) 25 ml Q15M PRN IV DECREASED GLUCOSE; Start 04/15/18 at 17:30 Dextrose (D50w Syringe) 50 ml Q15M PRN IV DECREASED GLUCOSE; Start 04/15/18 at 17:30 Glucagon (Glucagen) 1 mg Q15M PRN IM DECREASED GLUCOSE; Start 04/15/18 at 17:30 Glucose (Glutose) 15 gm Q15M PRN BUCCAL DECREASED GLUCOSE; Start 04/15/18 at 17:30 Lorazepam (Ativan) 1 mg BID PRN PO ANXIETY Last administered on 04/16/18at 03:34; Admin Dose 1 MG; Start 04/15/18 at 23:00 Levalbuterol (Xopenex Neb) 1.25 mg Q4H RESP THERAPY HHN Last administered on 04/16/18at 08:01; Admin Dose 1.25 MG; Start 04/16/18 at 01:00 Ipratropium [place] (Atrovent 0.02% (Neb)) 0.5 mg Q4H RESP THERAPY HHN Last administered on 04/16/18at 08:00; Admin Dose 0.5 MG; Start 04/16/18 at 01:00 Insulin Glargine (Lantus) 38 unit QHS SC ; Start 04/16/18 at 21:00 Acetaminophen/ Hydrocodone Bitart ([place] (5/325)) 1 tab Q8 PRN PO MODERATE PAIN LEVEL 4-6 Last administered on 04/16/18at 10:42; Admin Dose 1 TAB; Start 04/16/18 at 10:30 IV Flush (NS 10 ml) 10 ml PRN PRN IV IV PROTOCOL; Start 04/16/18 at 10:30 Allergies: Coded Allergies: morphine (Verified Allergy, Mild, 04/15/18) Past Surgical History Past Surgical Hx: no surgical history, other Social History Smoking Status: Former smoker Exam/Review of Systems Vital Signs Vitals Vital Signs Date Temp Pulse Resp B/P (MAP) Pulse Ox O2 O2 Flow FiO2 Time Delivery Rate 04/16/18 102 20 95 Nasal 3.0 08:01 Cannula 04/16/18 98.5 92/63 (73) 07:23 04/15/18 28 20:52 Intake and Output 04/15/18 04/15/18 04/16/18 1515:00 23:00 07:00 IntakeIntake Total 200 ml OutputOutput Total 1300 ml BalanceBalance -1100 ml Exam H EENT exam; supple neck, positive JVD. No lymphadenopathy. Midline trachea. No thyromegaly. Patient has fair dentition. Chest exam; diminished breath sounds bilaterally. Bilateral wheezing. S1-S2 audible, no murmurs. Irregular rhythm. Abdomen exam; protuberant. Bowel sounds audible. Nontender. Extremity exam; no edema or clubbing. ENAMEL PULVERIZER exam; no focal deficit. Medications Medications Current Medications IV Flush (NS 3 ml) 3 ml PER PROTOCOL IV ; Start 04/15/18 at 17:00 Ondansetron HCl (Zofran Inj) 4 mg Q6H PRN IV NAUSEA AND/OR VOMITING; Start 04/15/18 at 17:00 Acetaminophen (Tylenol Tab) 650 mg Q6H PRN PO PAIN LEVEL 1-3 OR FEVER Last administered on 04/16/18 03:28; Admin Dose 650 MG; Start 04/15/18 at 17:00 Docusate Sodium (Colace) 100 mg Q12H PRN PO CONSTIPATION Last administered on 04/16/18 09:20; Admin Dose 100 MG; Start 04/15/18 at 17:00 Pantoprazole (Protonix Iv) 40 mg DAILY@06 IV Last administered on 04/16/18 05:30; Admin Dose 40 MG; Start 04/16/18 at 06:00 Furosemide (Lasix) 40 mg TID IV Last administered on 04/16/18 09:19; Admin Dose 40 MG; Start 04/15/18 at 21:00 Methylprednisolone Sodium Succinate (Solu-Medrol) 60 mg Q8 IV Last administered on 04/16/18 05:31; Admin Dose 60 MG; Start 04/15/18 at 22:00 Levofloxacin/ Dextrose 150 ml @ 100 mls/hr Q24H IVPB ; Start 04/16/18 at 18:00 Aspirin (Halfprin) 81 mg DAILY PO Last administered on 04/16/18at 09:19; Admin Dose 81 MG; Start 04/16/18 at 09:00 Atorvastatin Calcium (Lipitor) 10 mg QHS PO Last administered on 04/15/18at 20:44; Admin Dose 10 MG; Start 04/15/18 at 21:00 Digoxin (Digoxin) 0.125 mg DAILY@13 PO ; Start 04/16/18 at 13:00 Isosorbide Dinitrate (Isordil) 10 mg TID PO Last administered on 04/16/18 09:19; Admin Dose 10 MG; Start 04/15/18 at 21:00 Lisinopril (Zestril) 2.5 mg DAILY PO ; Start 04/16/18 at 09:00 Insulin Aspart (Novolog Insulin Pen) 5 unit WITH MEALS SC Last administered on 04/16/18at 08:25; Admin Dose 5 UNIT; Start 04/16/18 at 07:55 Diagnostic Test (Pha) (Accu-Chek) 1 ea 02 XX Last administered on 04/16/18at 01:38; Admin Dose 1 EA; Start 04/16/18 at 02:00 Insulin Aspart (Novolog Insulin Pen) NOVOLOG *MODERATE* ALGORITHM WITH MEALS BEDTIME SC Last administered on 04/16/18at 08:26; Admin Dose 10 UNIT; Start 04/15/18 at 21:00 Miscellaneous Information 1 ea NOTE XX ; Start 04/15/18 at 17:30 Glucose (Glutose) 15 gm Q15M PRN PO DECREASED GLUCOSE; Start 04/15/18 at 17:30 Glucose (Glutose) 22.5 gm Q15M PRN PO DECREASED GLUCOSE; Start 04/15/18 at 17:30 Dextrose (D50w Syringe) 25 ml Q15M PRN IV DECREASED GLUCOSE; Start 04/15/18 at 17:30 Dextrose (D50w Syringe) 50 ml Q15M PRN IV DECREASED GLUCOSE; Start 04/15/18 at 17:30 Glucagon (Glucagen) 1 mg Q15M PRN IM DECREASED GLUCOSE; Start 04/15/18 at 17:30 Glucose (Glutose) 15 gm Q15M PRN BUCCAL DECREASED GLUCOSE; Start 04/15/18 at 17:30 Lorazepam (Ativan) 1 mg BID PRN PO ANXIETY Last administered on 04/16/18at 03:34; Admin Dose 1 MG; Start 04/15/18 at 23:00 Levalbuterol (Xopenex Neb) 1.25 mg Q4H RESP THERAPY HHN Last administered on 04/16/18at 08:01; Admin Dose 1.25 MG; Start 04/16/18 at 01:00 Ipratropium [place] (Atrovent 0.02% (Neb)) 0.5 mg Q4H RESP THERAPY HHN Last administered on 04/16/18at 08:00; Admin Dose 0.5 MG; Start 04/16/18 at 01:00 Insulin Glargine (Lantus) 38 unit QHS SC ; Start 04/16/18 at 21:00 Acetaminophen/ Hydrocodone Bitart ([place] (5/325)) 1 tab Q8 PRN PO MODERATE PAIN LEVEL 4-6 Last administered on 04/16/18at 10:42; Admin Dose 1 TAB; Start 04/16/18 at 10:30 IV Flush (NS 10 ml) 10 ml PRN PRN IV IV PROTOCOL; Start 04/16/18 at 10:30 ALDAIR ETIENNE Apr 16, 2018 11:02
[2018-04-16] MEDS: DIGOXIN 0.125 MG TAB PO SCH (13:30)
--- NOTE | 2018-04-16 15:30 | NUR ---
BLOOD GLUCOSE PT DOES EAT FOODS BETWEEN MEALS AND DRINK JUICES, PT EDUCATED TO RATIONALE FOR DIABETIC RESTRICTIONS AND SIDE EFFECTS OF SOLUMEDROL, PT VERBALIZES UNDERSTANDING, REFUSES BED ALARM, EDUCATED TO RATIONALE OF BED ALARM AND RISK OF NOT USING IT FOR SAFETY, VERBALIZES UNDERSTANDING AND STILL INSISTS TO HAVE BED ALARM OFF
--- NOTE | 2018-04-16 17:03 | CONS ---
DATE OF ADMISSION: 04/15/2018 DATE OF CONSULTATION: 04/16/2018 REASON FOR CONSULTATION: Congestive heart failure exacerbation. REQUESTING PHYSICIAN: Dr. Durant. HISTORY OF PRESENT ILLNESS: Ms. Pablo is a 47-year-old female well known to myself due to multi ple prior hospital admissions with history of cardiomyopathy, decreased left ventricular ejection fra ction, last seen approximately 25%, congestive heart failure, current [id number] on chronic, o bstructive pulmonary disease with ongoing tobacco usage, paroxysmal atrial fibrillation, atrial flutt er, dyslipidemia who had recently been admitted and suddenly went AMA a bout of congestive heart fail ure and hypercarbic respiratory failure. The patient now re-presents with recurrent bouts of shortne ss of breath orthopnea. The patient denied chest pain. Upon arrival, temperature of 99.9, blo od pressure 128/74, pulse 118, respiratory rate 25, satting 100%. The patient's labs are notable for white count of 47.4 and platelet count 213. Sodium of 138, potassium 4.4, creatinine 0.5, BUN 13, A ST 29, ALT 29. Troponin negative. BNP of 9510. The patient underwent a chest x-ray revealing a per sistent moderate global enlargement of the cardiac silhouette. Interval development of patchy airspa ce opacification left mid lung and right lower lung zone. The patient's electrocardiogram reveals a sinus tachycardia at 117 with a normal axis, normal intervals, nonspecific ST and T abnormalities, emely rderline anteroseptal Q's. The patient was subsequently admitted to the floor, and since admit to [facility], she has been monitored on telemetry, revealing ongoing sinus tachycardia at low 100s. The patie nt has been placed on Lasix diuresis and Isordil and Zestril and beta blockers are none at this time. PAST MEDICAL HISTORY: As above in HPI. MEDICATIONS CURRENTLY IN HOSPITAL: 1. Lantus. 2. Cefepime. 3. Levofloxacin. 4. Digoxin 0.125 mg daily. 5. [place]. 6. Aspirin 81 mg. 7. Zestril 2.5 mg daily. 8. Insulin sliding scale. 9. Protonix 40 mg IV daily. 10. Ativan 1 mg p.o. b.i.d. p.r.n. 11. Lasix 40 mg IV t.i.d. 12. Lipitor 10 mg at bedtime. 13. Isordil 10 mg 3 times daily. ALLERGIES: MORPHINE. SOCIAL HISTORY: Ongoing tobacco usage, social ETOH, substance abuse. FAMILY HISTORY: No history of sudden cardiac or early CAD. REVIEW OF SYSTEMS: As above in HPI. CONSTITUTIONAL: No fevers, chills. PULMONARY: Shortness of breath, COPD. CARDIOVASCULAR: Congestive heart failure. GASTROINTESTINAL: No vomiting. GENITOURINARY: No hematuria, dysuria. MUSCULOSKELETAL: Degenerative joint disease. PSYCHIATRIC: Possible anxiety. NEUROLOGIC: No documented history of CVA. ENDOCRINE: Diabetes mellitus. PHYSICAL EXAMINATION: VITAL SIGNS: Temperature of 98, blood pressure 94/54, pulse 102, respiratory rate 20, satting 96% on 3 liters. GENERAL: The patient is alert, awake, complaining of mild shortness of breath. NECK: JVP approximately 9 to 10 cm water. CHEST: Decreased breath sounds at base bilaterally. HEART: Tachycardic, regular rhythm, normal S1, increased S2. Laterally displaced PMI. ABDOMEN: Positive bowel sounds, soft. EXTREMITIES: Trace edema, 1+ pulses bilateral posterior tibial. LABORATORIES: Most recently from today, sodium 140, potassium 3.6, creatinine 0.69, BUN 17, magnesiu m 1.5. White blood cell count is 47.4. IMAGING STUDIES: As above in HPI. No further imaging studies for my review at this time. ECG: As above in HPI. No further electrocardiograms for my review at this time. IMPRESSION: 1. Congestive heart failure exacerbation, systolic, acute on chronic. 2. Hypotension, borderline. 3. Tachycardia consistent with sinus tachycardia in the setting of likely decompensated congestive h eart failure. 4. Chronic obstructive pulmonary disease exacerbation. 5. Possible pneumonia. 6. Diabetes mellitus. RECOMMENDATIONS: 1. At this time, would maintain the patient on telemetry monitoring to follow rhythm and rate contro l closely. 2. Continue the patient's aspirin for prophylaxis against cardiovascular events. 3. We will continue the patient's Zestril. I will slowly down titrate and initiate patient on low d ose beta rianna for treatment of cardiomyopathy and improvement of heart rate control. 4. We will likely hold the patient's Isordil at this time in favor of beta rianna given marginal bl ood pressure. 5. Continue the patient's digoxin. Check the digoxin level and consider IV push dose of digoxin. 6. Continue the patient's broad-spectrum antibiotics and follow up all culture data. 7. Continue the patient's bronchodilators and steroids. 8. Continue the patient's Lasix diuresis, at this time following strict I's and O's, creatinine, to grade diuresis closely. Thank you for allowing me to take part in the care of this patient. I will continue to follow very c losely with you with further recommendations to be made as the patient progresses through her [facility] clinical course. Dictated By: GAGAN KENNEDY/DEENA Conf#: [id number] DID#: [id number] CC: ALEKSANDRA DURANT;*End*
[2018-04-16] MEDS ORDERED: LEVOFLOXACIN 750MG/D5W (PMX) 150 ML IVPB SCH (18:00)
--- NOTE | 2018-04-16 18:19 | NUR ---
END OF SHIFT PT DOES EAT FOODS BETWEEN MEALS AND DRINK JUICES, PT EDUCATED TO RATIONALE FOR DIABETIC RESTRICTIONS AND SIDE EFFECTS OF SOLUMEDROL, PT VERBALIZES UNDERSTANDING, REFUSES BED ALARM, EDUCATED TO RATIONALE OF BED ALARM AND RISK OF NOT USING IT FOR SAFETY, VERBALIZES UNDERSTANDING AND STILL INSISTS TO HAVE BED ALARM OFFPT BROTHER VISITING AT BEDSIDE, DENIES PAIN, STABLE FOR HANDOFF
--- NOTE | 2018-04-16 20:00 | NUR ---
PAIN NOTIFIED DATA ANALYST ETL DEVELOPER MD BOLTON PATIENT'S COMPLAINT OF PAIN NOT RELIEVED WITH CURRENT MED, HOWEVER, DATA ANALYST ETL DEVELOPER SAID TO WAIT ON THE PMD IN AM. EXPLAINED TO PATIENT, VERBALIZED UNDERSTANDING.
[2018-04-16] MEDS: CEFEPIME 1GM/50 ML (PMX) 50 ML IVPB SCH (20:15)
[2018-04-16] MEDS: ATORVASTATIN 10 MG TAB PO SCH (20:15)
[2018-04-16] MEDS ORDERED: INSULIN GLARGINE [LANtus] 3 ML PEN SC SCH (21:00)
[2018-04-16] MEDS: METOPROLOL (XL) 25 MG TAB PO SCH (21:00)
[2018-04-16] MEDS ORDERED: ZOLPIDEM 5 MG TAB PO PRN (22:30)
[2018-04-16] MEDS: INSULIN GLARGINE [LANTus] (100 UNITS/ML) SYG SC SCH (23:06)
[2018-04-17] VITALS (16 sets, daily range): BP systolic 83–128; BP diastolic 46–83; PULSE 77–120; RESP 19–20
[2018-04-17] MEDS: FUROSEMIDE 40 MG INJ IV SCH ×4 (00:22→17:36)
[2018-04-17] MEDS: IPRATROPIUM (NEB) 0.5 MG/2.5 ML AMP HHN SCH ×6 (00:33→20:11)
[2018-04-17] MEDS: LEVALBUTEROL (NEB) 1.25 MG/0.5 ML AMP HHN SCH ×6 (00:33→20:11)
[2018-04-17] MEDS: ACCU-CHEK XX SCH (02:47)
--- NOTE | 2018-04-17 02:47 | NUR ---
HIGH BLOOD GLUCOSE PT FSBS RECHECK WAS HIGH AT 384MG/DL, SHE SAID, " OH, JUST REPEAT IT AT 6AM", EDUCATED REGARDING DIABETIC DIET AND OFFERED EDUCATIONAL MATERIAL FOR THAT, SAID SHE ALREADY HAD ONE. SHE IS VERY NONCOMPLIANT WITH HER DIET SHE EVEN ASKED THE [employer] FINANCIAL APPLICATION DEVELOPER TO BUY HER CHIPS AND CHOCOLATES IN THE VENDING MACHINE AND ALMOST THROWING TANTRUMS WHEN REMINDED ON CARB CONTROLLED / DIABETIC DIET. SHE WAS COVERED WITH NOVOLOG AT HS . LANTUS WAS ALSO GIVEN AT HS. SHE WAS SEEN EATING NORMA CRACKERS WITH MILK POST INSULIN . WILL RECHECK BLOOD SUGAR IN AM.
[2018-04-17] MEDS: PANTOPRAZOLE 40 MG INJ IV SCH (06:16)
[2018-04-17] MEDS: METHYLPREDNISOLONE 40 MG INJ IV SCH ×3 (06:17→21:59)
[2018-04-17] MEDS: INSULIN ASPART [NOVOLOG] 3 ML PEN SC SCH ×7 (07:06→21:52)
--- NOTE | 2018-04-17 07:30 | NUR ---
AM ASSESSMENT REFUSES BED ALARM, EDUCATED TO RATIONALE OF BED ALARM AND RISK OF NOT USING IT FOR SAFETY, VERBALIZES UNDERSTANDING AND STILL INSISTS TO HAVE BED ALARM OFF, DENIES PAIN, STABLE FOR HANDOFF Addendum: 04/17/18 at 1812 by JUAN M BARROSO RN VOID ABOVE NOTE
--- NOTE | 2018-04-17 07:39 | NUR ---
EOSS: PATIENT ON SOLU MEDROL BLOOD GLUCOSE RECHECK AT AROUND 7AM, NOVOLOG COVERAGE IN THE MORNING GIVEN. TRIED CALLING PMD INITIALLY BUT NOBODY'S PICKING UP. PATIENT STILL NONCOMPLIANT WITH DIET. FSBS WILL BE RECHECKED PRE BREAKFAST.
--- NOTE | 2018-04-17 07:51 | CONS ---
DATE OF ADMISSION: 04/15/2018 DATE OF CONSULTATION: 04/16/2018 TYPE OF CONSULTATION: Infectious disease. REASON FOR CONSULTATION: Antibiotic management. HISTORY OF PRESENT ILLNESS: Sangita Beckett is a 47-year-old female who was admitted 04/15/2018 wit h chest pain and shortness of breath. Her past problems include: 1. Adult-onset diabetes. 2. Hypertension. 3. Dyslipidemia. 4. Morbid obesity. 5. Systolic congestive heart failure with ejection fraction of 25% to 30%. 6. Psychiatric disorder. 7. Abdominal pain secondary to abdominal wall hernia. 8. Atrial fibrillation. The patient was admitted to [facility] on 04/07/2018 and left AMA because she had to take ca re of her sons problems. After she left she has not been feeling well, chest pain, shortness of zachery th continues to last 2 days prior to admission. She is having fever and chills. She is having what she described as pneumonia and therefore she came back to the Emergency Room. In the Emergency Room, her pulse was 180, temperature 99.9. Chest x-ray showed persistent moderate global on the car diomediastinal silhouette, compatible with cardiomegaly and pericardial effusion, pulmonary vascular congestion, interval development of patchy airspace opacifications in the left middle lobe. There is no effusion. She was started on albuterol, Atrovent, Solu-Medrol, Lasix and Levaquin and admitted. On 04/15/2018 the white count was 47.4, H and H of 13.1 and 41.3, platelet count of 213,000 with 65 polys, 23 bands for significant left shift. Her BUN and creatinine was 17/0.69. Her imaging chest x -ray was as described. She had a PICC line insertion. Her chest x-ray on the 04/16/2018 showed stab le patchy opacities in the mid left lung and lower right lung which may represent persistent multifoc al pneumonia. Patient was begun on Levaquin and methylprednisolone. MICROBIOLOGY: Showed normal respiratory brian. Influenza A and B were negative. MRSA screen is harlan ng processed. HOSPITAL COURSE: The patient was seen by and noted that she was admitted with acute bronch itis, possibly pneumonia because of significant leukocytosis and patchy bilateral infiltrates. She i s on appropriate antimicrobial therapy. PAST MEDICAL HISTORY: Operations: None. FAMILY HISTORY: Noncontributory. SOCIAL HISTORY: She is a former smoker. She does not drink or abuse drugs. She did however use sonia pop on last admission at [facility]. ALLERGIES: MORPHINE. MEDICATIONS: Per chart. REVIEW OF SYSTEMS: As per HPI. PHYSICAL EXAMINATION: GENERAL: The patient is awake, responsive, in no acute distress. VITAL SIGNS: Stable. She is afebrile. SKIN: Without generalized rash. HEENT: Within normal limits. NECK: Supple. LYMPH NODES: None palpable. CHEST: Decreased breath sounds at the bases. HEART: Irregularly irregular rhythm. ABDOMEN: Soft, obese, nontender. She has an umbilical hernia which is reducible. EXTREMITIES: 1 to 2+ edema without cyanosis or clubbing. RECTAL AND GENITAL: Deferred. NEUROLOGIC: No focal neurological abnormality. IMPRESSION AND PLAN: In view of her very impressive white count at her presentation, I am going to a dd cefepime to her regimen including Levaquin. Blood cultures and respiratory cultures pending. I w ill dictate my findings to Dr. Durant and . Dictated By: CRAIG RAYMUNDO MD, JD/DEENA Conf#: [id number] DID#: [id number] CC: ALEKSANDRA DURANT;*EndCC*
--- NOTE | 2018-04-17 08:00 | NUR ---
AM ASSESSMENT PT REFUSES BED ALARM, EDUCATED TO RATIONALE OF ALARM AND RISKS OF NOT KEEPING BED ALARM ON, ADVISED TO CALL FOR ASSIST C MOBILITY, VERBALIZES UNDERSTANDING OF ABOVE EDUCATION
[2018-04-17] MEDS: DOCUSATE SODIUM 100 MG CAP PO PRN (09:46)
[2018-04-17] MEDS: HYDROCODONE/APAP (5/325) TAB PO PRN (09:46)
[2018-04-17] MEDS: LORAZEPAM 1 MG TAB PO PRN (09:46)
[2018-04-17] MEDS: ASPIRIN (EC) 81 MG TAB PO SCH (09:46)
[2018-04-17] MEDS: LISINOPRIL 5 MG TAB PO SCH (09:47)
[2018-04-17] MEDS: METOPROLOL (XL) 25 MG TAB PO SCH ×2 (09:47→21:00)
[2018-04-17] MEDS: CEFEPIME 1GM/50 ML (PMX) 50 ML IVPB SCH ×2 (09:48→21:39)
--- NOTE | 2018-04-17 12:12 | RADRPT ---
Vent Rate: 97 bpm RR Interval: 0 msec NC Interval: 172 msec QRS Duration: 106 msec QT Interval: 372 msec QTC Interval: 472 msec P-R-T [place]: 47 - 62 - -43 degrees Sinus rhythm with premature atrial complexes Incomplete left bundle branch block T wave abnormality, consider lateral ischemia Prolonged QT Abnormal ECG Electronically Signed By: Flakito Irene [id number]
[2018-04-17] MEDS: DIGOXIN 0.125 MG TAB PO SCH (14:22)
--- NOTE | 2018-04-17 14:27 | CONS ---
Date/Time of Note Date/Time of Note DATE: 04/17/18 TIME: 14:25 Consult Date/Type/Reason Admit Date/Time Apr 15, 2018 at 16:15 Initial Consult Date 04/16/18 Type of Consultation: Pulmonary ICU Subjective Still has significant dyspnea and wheezing. Requesting more pain medications Objective Vital Signs Date Temp Pulse Resp B/P (MAP) Pulse Ox O2 O2 Flow FiO2 Time Delivery Rate 04/17/18 Nasal 3.0 13:30 Cannula 04/17/18 98 20 97 13:03 04/17/18 97.9 86/49 (61) 11:39 04/16/18 30 22:34 Intake and Output 04/16/18 04/16/18 04/17/18 1515:00 23:00 07:00 IntakeIntake Total 1100 ml 1000 ml OutputOutput Total 1700 ml 1850 ml BalanceBalance -600 ml -850 ml Exam GENERAL: Morbidly obese lady comfortable at rest VITAL SIGNS: per chart NECK: Supple. No JVD or lymphadenopathy. CARDIAC EXAM: S1, S2. No added sounds or murmurs. CHEST: Diminished air entry bilaterally with expiratory wheezing ABDOMEN: Soft, nontender. No guarding or rebound. EXTREMITIES: No cyanosis, clubbing or edema. NEUROLOGIC: Generalized weakness. No focal deficits. Results/Medications Result Diagram: 04/17/18 0755 04/17/18 0755 Results 24 hrs Laboratory Tests Test 04/16/18 17:06 04/16/18 18:07 04/16/18 22:24 04/17/18 01:05 Bedside Glucose 298 H 250 H Troponin I < 0.012 < 0.012 Test 04/17/18 01:49 04/17/18 06:23 04/17/18 07:01 04/17/18 07:41 Bedside Glucose 384 H 403 *H 391 H 387 H Test 04/17/18 07:55 04/17/18 11:46 White Blood 45.0 H Count Red Blood Count 4.22 Hemoglobin 12.4 Hematocrit 39.6 Mean Corpuscular 93.8 Volume Mean Corpuscular 29.4 Hemoglobin Mean Corpuscular 31.3 L Hemoglobin Bel[place] Red Cell 15.3 H Distribution Width Platelet Count 188 Mean Platelet 12.0 H Volume Immature 2.200 H Granulocytes % Neutrophils % Segmented 87 H Neutrophils % (Manual) Band Neutrophils 9 H % (Manual) Lymphocytes % Lymphocytes % 1 L (Manual) Monocytes % Monocytes % 3 (Manual) Eosinophils % Basophils % Nucleated Red 0.0 Blood Cells % Immature 0.990 H Granulocytes # Neutrophils # Neutrophils # 41.0 H (Manual) Band Neutrophils 4.0 H # Lymphocytes 0.4 L (Manual) Lymphocytes # Monocytes # Monocytes # 1.3 H (Manual) Eosinophils # Basophils # Nucleated Red Blood Cells # Platelet NORMAL Estimate Poikilocytosis 1+ Anisocytosis 1+ Macrocytosis 1+ Spherocytes 1+ Sodium Level 137 Potassium Level 3.8 Chloride Level 94 L Carbon Dioxide 38 H Level Anion Gap 5 Blood Urea 29 #H Nitrogen Creatinine 0.77 Est Glomerular > 60 Filtrat Rate mL/min Glucose Level 433 *H Calcium Level 8.8 Phosphorus Level 2.8 Magnesium Level 1.8 Troponin I < 0.012 Bedside Glucose 483 *H Medications Current Medications IV Flush (NS 3 ml) 3 ml PER PROTOCOL IV ; Start 04/15/18 at 17:00 Ondansetron HCl (Zofran Inj) 4 mg Q6H PRN IV NAUSEA AND/OR VOMITING; Start 04/15/18 at 17:00 Acetaminophen (Tylenol Tab) 650 mg Q6H PRN PO PAIN LEVEL 1-3 OR FEVER Last administered on 04/16/18at 03:28; Admin Dose 650 MG; Start 04/15/18 at 17:00 Docusate Sodium (Colace) 100 mg Q12H PRN PO CONSTIPATION Last administered on 04/17/18at 09:46; Admin Dose 100 MG; Start 04/15/18 at 17:00 Pantoprazole (Protonix Iv) 40 mg DAILY@06 IV Last administered on 04/17/18at 06:16; Admin Dose 40 MG; Start 04/16/18 at 06:00 Furosemide (Lasix) 40 mg TID IV Last administered on 04/17/18 14:22; Admin Dose 40 MG; Start 04/15/18 at 21:00 Methylprednisolone Sodium Succinate (Solu-Medrol) 60 mg Q8 IV Last administered on 04/17/18 14:22; Admin Dose 60 MG; Start 04/15/18 at 22:00 Levofloxacin/ Dextrose 150 ml @ 100 mls/hr Q24H IVPB Last administered on 04/16/18at 18:08; Admin Dose 100 MLS/HR; Start 04/16/18 at 18:00 Aspirin (Halfprin) 81 mg DAILY PO Last administered on 04/17/18 09:46; Admin Dose 81 MG; Start 04/16/18 at 09:00 Atorvastatin Calcium (Lipitor) 10 mg QHS PO Last administered on 04/16/18at 20:15; Admin Dose 10 MG; Start 04/15/18 at 21:00 Digoxin (Digoxin) 0.125 mg DAILY@13 PO Last administered on 04/17/18 14:22; Admin Dose 0.125 MG; Start 04/16/18 at 13:00 Lisinopril (Zestril) 2.5 mg DAILY PO Last administered on 04/17/18 09:47; Admin Dose 2.5 MG; Start 04/16/18 at 09:00 Diagnostic Test (Pha) (Accu-Chek) 1 ea 02 XX Last administered on 04/17/18at 02:47; Admin Dose 1 EA; Start 04/16/18 at 02:00 Insulin Aspart (Novolog Insulin Pen) NOVOLOG *MODERATE* ALGORITHM WITH MEALS BEDTIME SC Last administered on 04/17/18at 11:52; Admin Dose 12 UNIT; Start 04/15/18 at 21:00 Miscellaneous Information 1 ea NOTE XX ; Start 04/15/18 at 17:30 Glucose (Glutose) 15 gm Q15M PRN PO DECREASED GLUCOSE; Start 04/15/18 at 17:30 Glucose (Glutose) 22.5 gm Q15M PRN PO DECREASED GLUCOSE; Start 04/15/18 at 17:30 Dextrose (D50w Syringe) 25 ml Q15M PRN IV DECREASED GLUCOSE; Start 04/15/18 at 17:30 Dextrose (D50w Syringe) 50 ml Q15M PRN IV DECREASED GLUCOSE; Start 04/15/18 at 17:30 Glucagon (Glucagen) 1 mg Q15M PRN IM DECREASED GLUCOSE; Start 04/15/18 at 17:30 Glucose (Glutose) 15 gm Q15M PRN BUCCAL DECREASED GLUCOSE; Start 04/15/18 at 17:30 Lorazepam (Ativan) 1 mg BID PRN PO ANXIETY Last administered on 04/17/18at 09:46; Admin Dose 1 MG; Start 04/15/18 at 23:00 Levalbuterol (Xopenex Neb) 1.25 mg Q4H RESP THERAPY HHN Last administered on 04/17/18 12:58; Admin Dose 1.25 MG; Start 04/16/18 at 01:00 Ipratropium [place] (Atrovent 0.02% (Neb)) 0.5 mg Q4H RESP THERAPY HHN Last administered on 04/17/18 12:58; Admin Dose 0.5 MG; Start 04/16/18 at 01:00 Acetaminophen/ Hydrocodone Bitart ([place] (5/325)) 1 tab Q8 PRN PO MODERATE PAIN LEVEL 4-6 Last administered on 04/17/18 09:46; Admin Dose 1 TAB; Start 04/16/18 at 10:30 IV Flush (NS 10 ml) 10 ml PRN PRN IV IV PROTOCOL; Start 04/16/18 at 10:30 Cefepime HCl 50 ml @ 100 mls/hr Q12 IVPB Last administered on 04/17/18 09:48; Admin Dose 100 MLS/HR; Start 04/16/18 at 21:00 Metoprolol Succinate (Toprol Xl) 12.5 mg BID PO Last administered on 04/17/18 09:47; Admin Dose 12.5 MG; Start 04/16/18 at 21:00 Insulin Aspart (Novolog Insulin Pen) 8 unit WITH MEALS SC Last administered on 04/17/18 11:52; Admin Dose 8 UNIT; Start 04/16/18 at 17:55 Insulin Glargine (Lantus) 38 units QHS SC Last administered on 04/16/18at 23:06; Admin Dose 38 UNITS; Start 04/16/18 at 21:30 Zolpidem Tartrate (Ambien) 5 mg HS PRN PO INSOMNIA Last administered on 04/17/18 00:21; Admin Dose 5 MG; Start 04/16/18 at 22:30 Assessment/Plan Chief Complaint/Hosp Course Assessment 1. Acute on chronic hypoxemic respiratory failure secondary to streptococcal pneumonia 2. Worsening hyperglycemia 3. Morbid obesity with chronic hypoxemia 4. Congestive cardiac failure with severe cardiomyopathy 5. Chronic atrial fibrillation Plan 1. Continue bronchodilators 2. Antibiotics 3. Supplemental O2 4. Cardiac recommendations Discussed with patient at bedside SLOANE FRASER MD, [facility] Apr 17, 2018 14:27
--- NOTE | 2018-04-17 14:30 | NUR ---
HIGH GLUCOSE DR SALCIDO HERE AND NOTIFIED OF PT NON ADHERENCE TO DIABETIC DIET RESTRICTIONS, EATS EXTRA FOODS, DRINKS SODAS
--- NOTE | 2018-04-17 14:32 | CONS ---
Date/Time of Note Date/Time of Note DATE: 04/17/18 TIME: 14:27 Assessment/Plan Assessment/Plan Hospital Course IMPRESSION: 1. Congestive heart failure exacerbation, systolic, acute on chronic.-neg trop x 3 2. Hypotension, borderline. 3. Tachycardia consistent with sinus tachycardia in the setting of likely decompensated congestive heart failure. 4. Chronic obstructive pulmonary disease exacerbation. 5. Possible pneumonia. 6. Diabetes mellitus. 7. abd pain/constipation Recc: -Tele -serial ecg's -Continue BB/ACEI as tolerated only -Decrease dose of lasix and follow volume status clsoely -Continue abx's/steroids/bronchodilators -Continue asa/digoxin Result Diagram: 04/17/18 0755 04/17/18 0755 Results 24hrs Laboratory Tests Test 04/16/18 17:06 04/16/18 18:07 04/16/18 22:24 04/17/18 01:05 Bedside Glucose 298 H 250 H Troponin I < 0.012 < 0.012 Test 04/17/18 01:49 04/17/18 06:23 04/17/18 07:01 04/17/18 07:41 Bedside Glucose 384 H 403 *H 391 H 387 H Test 04/17/18 07:55 04/17/18 11:46 White Blood 45.0 H Count Red Blood Count 4.22 Hemoglobin 12.4 Hematocrit 39.6 Mean Corpuscular 93.8 Volume Mean Corpuscular 29.4 Hemoglobin Mean Corpuscular 31.3 L Hemoglobin [place] Red Cell 15.3 H Distribution Width Platelet Count 188 Mean Platelet 12.0 H Volume Immature 2.200 H Granulocytes % Neutrophils % Segmented 87 H Neutrophils % (Manual) Band Neutrophils 9 H % (Manual) Lymphocytes % Lymphocytes % 1 L (Manual) Monocytes % Monocytes % 3 (Manual) Eosinophils % Basophils % Nucleated Red 0.0 Blood Cells % Immature 0.990 H Granulocytes # Neutrophils # Neutrophils # 41.0 H (Manual) Band Neutrophils 4.0 H # Lymphocytes 0.4 L (Manual) Lymphocytes # Monocytes # Monocytes # 1.3 H (Manual) Eosinophils # Basophils # Nucleated Red Blood Cells # Platelet NORMAL Estimate Poikilocytosis 1+ Anisocytosis 1+ Macrocytosis 1+ Spherocytes 1+ Sodium Level 137 Potassium Level 3.8 Chloride Level 94 L Carbon Dioxide 38 H Level Anion Gap 5 Blood Urea 29 #H Nitrogen Creatinine 0.77 Est Glomerular > 60 Filtrat Rate mL/min Glucose Level 433 *H Calcium Level 8.8 Phosphorus Level 2.8 Magnesium Level 1.8 Troponin I < 0.012 Bedside Glucose 483 *H Consultation Date/Type/Reason Admit Date/Time Apr 15, 2018 at 16:15 Initial Consult Date 04/16/18 Type of Consult cardiology Reason for Consultation CHF Requesting Provider: ALEKSANDRA SALCIDO MD Exam/Review of Systems Vital Signs Vitals Vital Signs Date Temp Pulse Resp B/P (MAP) Pulse Ox O2 O2 Flow FiO2 Time Delivery Rate 04/17/18 Nasal 3.0 13:30 Cannula 04/17/18 98 20 97 13:03 04/17/18 97.9 86/49 (61) 11:39 04/16/18 30 22:34 Intake and Output 04/16/18 04/16/18 04/17/18 1515:00 23:00 07:00 IntakeIntake Total 1100 ml 1000 ml OutputOutput Total 1700 ml 1850 ml BalanceBalance -600 ml -850 ml Exam Review of Systems: CONSTITUTIONAL: No fevers, chills. PULMONARY: No sob CARDIOVASCULAR: No chest pain/palpitations GASTROINTESTINAL: No nausea/vomiting. GENITOURINARY: No hematuria/dysuria. MUSCULOSKELETAL: No myagias/arthalgias. PSYCHIATRIC: The patient denies depression. NEUROLOGIC: No weakness Constitutional: alert Psych: no complaints Head: normocephalic ENMT: mucosa pink and moist Neck: supple, jvd (9 cm water) Respiratory: diminished breath sounds (at bases/B) Cardiovascular: regular rate and rhythm Gastrointestinal: soft, tender (mild to palpation) Musculoskeletal: muscle tone (normal) Extremities: edema (none) Neurological: other (No focal deficits) Medications Medications Current Medications IV Flush (NS 3 ml) 3 ml PER PROTOCOL IV ; Start 04/15/18 at 17:00 Ondansetron HCl (Zofran Inj) 4 mg Q6H PRN IV NAUSEA AND/OR VOMITING; Start 04/15/18 at 17:00 Acetaminophen (Tylenol Tab) 650 mg Q6H PRN PO PAIN LEVEL 1-3 OR FEVER Last administered on 04/16/18at 03:28; Admin Dose 650 MG; Start 04/15/18 at 17:00 Docusate Sodium (Colace) 100 mg Q12H PRN PO CONSTIPATION Last administered on 04/17/18 09:46; Admin Dose 100 MG; Start 04/15/18 at 17:00 Pantoprazole (Protonix Iv) 40 mg DAILY@06 IV Last administered on 04/17/18 06:16; Admin Dose 40 MG; Start 04/16/18 at 06:00 Furosemide (Lasix) 40 mg TID IV Last administered on 04/17/18 14:22; Admin Dose 40 MG; Start 04/15/18 at 21:00 Methylprednisolone Sodium Succinate (Solu-Medrol) 60 mg Q8 IV Last administered on 04/17/18 14:22; Admin Dose 60 MG; Start 04/15/18 at 22:00 Levofloxacin/ Dextrose 150 ml @ 100 mls/hr Q24H IVPB Last administered on 04/16/18 18:08; Admin Dose 100 MLS/HR; Start 04/16/18 at 18:00 Aspirin (Halfprin) 81 mg DAILY PO Last administered on 04/17/18 09:46; Admin Dose 81 MG; Start 04/16/18 at 09:00 Atorvastatin Calcium (Lipitor) 10 mg QHS PO Last administered on 04/16/18 20:15; Admin Dose 10 MG; Start 04/15/18 at 21:00 Digoxin (Digoxin) 0.125 mg DAILY@13 PO Last administered on 04/17/18 14:22; Admin Dose 0.125 MG; Start 04/16/18 at 13:00 Lisinopril (Zestril) 2.5 mg DAILY PO Last administered on 04/17/18 09:47; Admin Dose 2.5 MG; Start 04/16/18 at 09:00 Diagnostic Test (Pha) (Accu-Chek) 1 ea 02 XX Last administered on 04/17/18 02:47; Admin Dose 1 EA; Start 04/16/18 at 02:00 Insulin Aspart (Novolog Insulin Pen) NOVOLOG *MODERATE* ALGORITHM WITH MEALS BEDTIME SC Last administered on 04/17/18 11:52; Admin Dose 12 UNIT; Start 04/15/18 at 21:00 Miscellaneous Information 1 ea NOTE XX ; Start 04/15/18 at 17:30 Glucose (Glutose) 15 gm Q15M PRN PO DECREASED GLUCOSE; Start 04/15/18 at 17:30 Glucose (Glutose) 22.5 gm Q15M PRN PO DECREASED GLUCOSE; Start 04/15/18 at 17:30 Dextrose (D50w Syringe) 25 ml Q15M PRN IV DECREASED GLUCOSE; Start 04/15/18 at 17:30 Dextrose (D50w Syringe) 50 ml Q15M PRN IV DECREASED GLUCOSE; Start 04/15/18 at 17:30 Glucagon (Glucagen) 1 mg Q15M PRN IM DECREASED GLUCOSE; Start 04/15/18 at 17:30 Glucose (Glutose) 15 gm Q15M PRN BUCCAL DECREASED GLUCOSE; Start 04/15/18 at 17:30 Lorazepam (Ativan) 1 mg BID PRN PO ANXIETY Last administered on 04/17/18 09:46; Admin Dose 1 MG; Start 04/15/18 at 23:00 Levalbuterol (Xopenex Neb) 1.25 mg Q4H RESP THERAPY HHN Last administered on 04/17/18at 12:58; Admin Dose 1.25 MG; Start 04/16/18 at 01:00 Ipratropium [place] (Atrovent 0.02% (Neb)) 0.5 mg Q4H RESP THERAPY HHN Last administered on 04/17/18at 12:58; Admin Dose 0.5 MG; Start 04/16/18 at 01:00 Acetaminophen/ Hydrocodone Bitart ([place] (5/325)) 1 tab Q8 PRN PO MODERATE PAIN LEVEL 4-6 Last administered on 04/17/18at 09:46; Admin Dose 1 TAB; Start 04/16/18 at 10:30 IV Flush (NS 10 ml) 10 ml PRN PRN IV IV PROTOCOL; Start 04/16/18 at 10:30 Cefepime HCl 50 ml @ 100 mls/hr Q12 IVPB Last administered on 04/17/18 09:48; Admin Dose 100 MLS/HR; Start 04/16/18 at 21:00 Metoprolol Succinate (Toprol Xl) 12.5 mg BID PO Last administered on 04/17/18 09:47; Admin Dose 12.5 MG; Start 04/16/18 at 21:00 Insulin Aspart (Novolog Insulin Pen) 8 unit WITH MEALS SC Last administered on 04/17/18at 11:52; Admin Dose 8 UNIT; Start 04/16/18 at 17:55 Insulin Glargine (Lantus) 38 units QHS SC Last administered on 04/16/18at 23:06; Admin Dose 38 UNITS; Start 04/16/18 at 21:30 Zolpidem Tartrate (Ambien) 5 mg HS PRN PO INSOMNIA Last administered on 04/17/18at 00:21; Admin Dose 5 MG; Start 04/16/18 at 22:30 GAGAN GARCIA Apr 17, 2018 14:32
--- NOTE | 2018-04-17 14:32 | NUR ---
Glycemic Management Referral: Thank you for the referral. R: Consider linking a low dose of NPH 15 units to the Solu-Medrol 60 mg Q8H to assist with the steroid induced hyperglycemia. Consider also increasing premeal NovoLog to 10 units. HbA1c 7.7%; 129kg; BMI 54 Pt is known to me from previous admissions. Had extensive discussion with pt in 11/2016. Will attempt to follow up with pt at bedside.
--- NOTE | 2018-04-17 15:12 | CONS ---
Date/Time of Note Date/Time of Note DATE: 04/17/18 TIME: 15:11 Assessment/Plan Assessment/Plan Hospital Course No acute events overnight patient is sleeping arousable in no distress afebrile WBC 45 platelets 188 neutrophils 87 bands 9 BUN 29 creatinine 0.77 glucose 433 Microbiology: Blood culture grew strep pneumonia influenza swab came back negative, MRSA negative Antimicrobials: Patient is on IV cefepime and Levaquin Indwelling: Right upper extremity PICC line, [place] Physical examination: This is a morbidly obese well-developed middle-aged -[place] woman who is in no distress. Head atraumatic normocephalic neck is obese chest rise symmetrical breath sounds diminished at bases. Heart: S1-S2 abdomen soft bowel sounds present extremities with bilateral edema Assessment: 1. Severe sepsis with acute hypoxemia 2. Strep pneumonia bacteremia 3. Community-acquired pneumonia and possible strep as well 4. CHF exacerbation 5. Diabetes 6. Morbid obesity 7. Chronic atrial fibrillation Plan: Patient is doing better, we will repeat blood cultures, change levofloxacin to oral administration, continue cefepime, await for 2D echo, follow pulmonary and cardiology recommendations Result Diagram: 04/17/18 0755 04/17/18 1357 Results 24hrs Laboratory Tests Test 04/16/18 17:06 04/16/18 18:07 04/16/18 22:24 04/17/18 01:05 Bedside Glucose 298 H 250 H Troponin I < 0.012 < 0.012 Test 04/17/18 01:49 04/17/18 06:23 04/17/18 07:01 04/17/18 07:41 Bedside Glucose 384 H 403 *H 391 H 387 H Test 04/17/18 07:55 04/17/18 11:46 04/17/18 13:57 White Blood 45.0 H Count Red Blood Count 4.22 Hemoglobin 12.4 Hematocrit 39.6 Mean Corpuscular 93.8 Volume Mean Corpuscular 29.4 Hemoglobin Mean Corpuscular 31.3 L Hemoglobin Bel[place] Red Cell 15.3 H Distribution Width Platelet Count 188 Mean Platelet 12.0 H Volume Immature 2.200 H Granulocytes % Neutrophils % Segmented 87 H Neutrophils % (Manual) Band Neutrophils 9 H % (Manual) Lymphocytes % Lymphocytes % 1 L (Manual) Monocytes % Monocytes % 3 (Manual) Eosinophils % Basophils % Nucleated Red 0.0 Blood Cells % Immature 0.990 H Granulocytes # Neutrophils # Neutrophils # 41.0 H (Manual) Band Neutrophils 4.0 H # Lymphocytes 0.4 L (Manual) Lymphocytes # Monocytes # Monocytes # 1.3 H (Manual) Eosinophils # Basophils # Nucleated Red Blood Cells # Platelet NORMAL Estimate Poikilocytosis 1+ Anisocytosis 1+ Macrocytosis 1+ Spherocytes 1+ Sodium Level 137 Potassium Level 3.8 Chloride Level 94 L Carbon Dioxide 38 H Level Anion Gap 5 Blood Urea 29 #H Nitrogen Creatinine 0.77 Est Glomerular > 60 Filtrat Rate mL/min Glucose Level 433 *H 540 *H Calcium Level 8.8 Phosphorus Level 2.8 Magnesium Level 1.8 Troponin I < 0.012 Bedside Glucose 483 *H Consultation Date/Type/Reason Admit Date/Time Apr 15, 2018 at 16:15 Initial Consult Date 04/16/18 Type of Consult id Requesting Provider: ALEKSANDRA SALCIDO MD Exam/Review of Systems Vital Signs Vitals Vital Signs Date Temp Pulse Resp B/P (MAP) Pulse Ox O2 O2 Flow FiO2 Time Delivery Rate 04/17/18 Nasal 3.0 13:30 Cannula 04/17/18 98 20 97 13:03 04/17/18 97.9 86/49 (61) 11:39 04/16/18 30 22:34 Intake and Output 04/16/18 04/16/18 04/17/18 1515:00 23:00 07:00 IntakeIntake Total 1100 ml 1000 ml OutputOutput Total 1700 ml 1850 ml BalanceBalance -600 ml -850 ml Medications Medications Current Medications IV Flush (NS 3 ml) 3 ml PER PROTOCOL IV ; Start 04/15/18 at 17:00 Ondansetron HCl (Zofran Inj) 4 mg Q6H PRN IV NAUSEA AND/OR VOMITING; Start 04/15/18 at 17:00 Acetaminophen (Tylenol Tab) 650 mg Q6H PRN PO PAIN LEVEL 1-3 OR FEVER Last administered on 04/16/18at 03:28; Admin Dose 650 MG; Start 04/15/18 at 17:00 Docusate Sodium (Colace) 100 mg Q12H PRN PO CONSTIPATION Last administered on 04/17/18at 09:46; Admin Dose 100 MG; Start 04/15/18 at 17:00 Pantoprazole (Protonix Iv) 40 mg DAILY@06 IV Last administered on 04/17/18at 06:16; Admin Dose 40 MG; Start 04/16/18 at 06:00 Levofloxacin/ Dextrose 150 ml @ 100 mls/hr Q24H IVPB Last administered on 04/16/18at 18:08; Admin Dose 100 MLS/HR; Start 04/16/18 at 18:00 Aspirin (Halfprin) 81 mg DAILY PO Last administered on 04/17/18at 09:46; Admin Dose 81 MG; Start 04/16/18 at 09:00 Atorvastatin Calcium (Lipitor) 10 mg QHS PO Last administered on 04/16/18at 20:15; Admin Dose 10 MG; Start 04/15/18 at 21:00 Digoxin (Digoxin) 0.125 mg DAILY@13 PO Last administered on 04/17/18at 14:22; Admin Dose 0.125 MG; Start 04/16/18 at 13:00 Lisinopril (Zestril) 2.5 mg DAILY PO Last administered on 04/17/18at 09:47; Admin Dose 2.5 MG; Start 04/16/18 at 09:00 Diagnostic Test (Pha) (Accu-Chek) 1 ea 02 XX Last administered on 04/17/18at 02:47; Admin Dose 1 EA; Start 04/16/18 at 02:00 Insulin Aspart (Novolog Insulin Pen) NOVOLOG *MODERATE* ALGORITHM WITH MEALS BEDTIME SC Last administered on 04/17/18at 11:52; Admin Dose 12 UNIT; Start 04/15/18 at 21:00 Miscellaneous Information 1 ea NOTE XX ; Start 04/15/18 at 17:30 Glucose (Glutose) 15 gm Q15M PRN PO DECREASED GLUCOSE; Start 04/15/18 at 17:30 Glucose (Glutose) 22.5 gm Q15M PRN PO DECREASED GLUCOSE; Start 04/15/18 at 17:30 Dextrose (D50w Syringe) 25 ml Q15M PRN IV DECREASED GLUCOSE; Start 04/15/18 at 17:30 Dextrose (D50w Syringe) 50 ml Q15M PRN IV DECREASED GLUCOSE; Start 04/15/18 at 17:30 Glucagon (Glucagen) 1 mg Q15M PRN IM DECREASED GLUCOSE; Start 04/15/18 at 17:30 Glucose (Glutose) 15 gm Q15M PRN BUCCAL DECREASED GLUCOSE; Start 04/15/18 at 17:30 Lorazepam (Ativan) 1 mg BID PRN PO ANXIETY Last administered on 04/17/18at 09:46; Admin Dose 1 MG; Start 04/15/18 at 23:00 Levalbuterol (Xopenex Neb) 1.25 mg Q4H RESP THERAPY HHN Last administered on 04/17/18at 12:58; Admin Dose 1.25 MG; Start 04/16/18 at 01:00 Ipratropium [place] (Atrovent 0.02% (Neb)) 0.5 mg Q4H RESP THERAPY HHN Last administered on 04/17/18at 12:58; Admin Dose 0.5 MG; Start 04/16/18 at 01:00 Acetaminophen/ Hydrocodone Bitart ([place] (5/325)) 1 tab Q8 PRN PO MODERATE PAIN LEVEL 4-6 Last administered on 04/17/18at 09:46; Admin Dose 1 TAB; Start 04/16/18 at 10:30 IV Flush (NS 10 ml) 10 ml PRN PRN IV IV PROTOCOL; Start 04/16/18 at 10:30 Cefepime HCl 50 ml @ 100 mls/hr Q12 IVPB Last administered on 04/17/18at 09:48; Admin Dose 100 MLS/HR; Start 04/16/18 at 21:00 Metoprolol Succinate (Toprol Xl) 12.5 mg BID PO Last administered on 04/17/18at 09:47; Admin Dose 12.5 MG; Start 04/16/18 at 21:00 Insulin Glargine (Lantus) 38 units QHS SC Last administered on 04/16/18at 23:06; Admin Dose 38 UNITS; Start 04/16/18 at 21:30 Furosemide (Lasix) 40 mg BID DIURETICS IV ; Start 04/17/18 at 18:00 Methylprednisolone Sodium Succinate (Solu-Medrol) 40 mg Q8 IV ; Start 04/17/18 at 22:00 Miscellaneous Information (* Miscellaneous Pharmacy Order) Discontinue current oral sulfonylur... ONCE ONCE XX ; Start 04/17/18 at 15:00; Stop 04/17/18 at 15:01; Status UNV Diagnostic Test (Pha) (Accu-Chek) 1 ea 02 XX ; Start 04/18/18 at 02:00; Status UNV Miscellaneous Information (* Miscellaneous Pharmacy Order) HYPOGLYCEMIA PROTOCOL w... ONCE ONCE XX ; Start 04/17/18 at 15:00; Stop 04/17/18 at 15:01; Status UNV Insulin Aspart (Novolog Insulin Pen) NOVOLOG *MODERATE* ALGORITHM WITH MEALS BEDTIME SC ; Start 04/17/18 at 17:55; Status UNV Miscellaneous Information (* Miscellaneous Pharmacy Order) Discontinue all previ... ONCE ONCE XX ; Start 04/17/18 at 15:00; Stop 04/17/18 at 15:01; Status UNV Hydromorphone HCl (Dilaudid) 0.5 mg Q6H PRN IV SEVERE PAIN LEVEL 7-10; Start 04/17/18 at 15:00; Status UNV Insulin Human NPH (Humulin N) 10 unit TID SC ; Start 04/17/18 at 21:00; Status UNV Insulin Aspart (Novolog Insulin Pen) 10 unit WITH MEALS SC ; Start 04/17/18 at 17:55; Status UNV Miscellaneous Information (* Miscellaneous Pharmacy Order) Discontinue current oral sulfonylur... ONCE ONCE XX ; Start 04/17/18 at 15:00; Stop 04/17/18 at 15:01; Status UNV Diagnostic Test (Pha) (Accu-Chek) 1 XX ; Start 04/18/18 at 02:00; Status UNV Miscellaneous Information (* Miscellaneous Pharmacy Order) HYPOGLYCEMIA PROTOCOL w... ONCE ONCE XX ; Start 04/17/18 at 15:00; Stop 04/17/18 at 15:01; Status UNV Insulin Aspart (Novolog Insulin Pen) NOVOLOG *MILD* ALGORITHM WITH MEALS BEDTIME SC ; Start 04/17/18 at 17:55; Status UNV Miscellaneous Information (* Miscellaneous Pharmacy Order) Discontinue all previ... ONCE ONCE XX ; Start 04/17/18 at 15:00; Stop 04/17/18 at 15:01; Status UNV HUE KERN NP Apr 17, 2018 15:12
[2018-04-17] MEDS: HYDROmorphONE 0.5 MG/0.5 ML SYG IV PRN ×2 (15:29→21:53)
[2018-04-17] MEDS: [UNRECOGNIZED DRUG - REMARK] XX SCH (15:30)
[2018-04-17] MEDS ORDERED: [UNRECOGNIZED DRUG - REMARK] XX SCH (15:30)
--- NOTE | 2018-04-17 15:35 | PN ---
MELANIA LAMBERT 04/17/18 1535: Date/Time of Note Date/Time of Note DATE: 04/17/18 TIME: 15:30 Assessment/Plan VTE Prophylaxis Risk score (from [facility])>0 risk: 8 SCD applied (from [facility]): No SCD contraindicated: other Pharmacological prophylaxis: fondaparinux Lines/Catheters IV Catheter Type (from [facility]): PICC Line Central line still needed: Yes Urinary Cath still in place: No Assessment/Plan Hospital Course 1. Chest pain. Rule out acute coronary syndrome, denies any CP currently 2. Shortness of breath likely secondary to congestive heart failure exacerbation. The patient has been noncompliant with her Lasix. The patient l eft AMA last time. The patient also has EF of 20% to 30%. Now, the patient is also having fevers. We cannot rule out underlying pneumonia. 3. Acute on chronic systolic congestive heart failure. 4. Cardiomyopathy with EF of 25% to 30%. 5. Hypertension. 6. Atrial fibrillation on Eliquis. 6. History of cocaine use. 7. Morbidly obese. 8. Abdominal pain secondary to abdominal wall hernia. 9. Leukocytosis Assessment/Plan - cw nebs - cw solumedrol 40 q8 - abx > cefepime - pul consult - cards consult - Influenza A and B neg - DM control, increase lantus and mealtime insulin Result Diagram: 04/17/18 0755 04/17/18 1357 Results 24hrs Laboratory Tests Test 04/16/18 17:06 04/16/18 18:07 04/16/18 22:24 04/17/18 01:05 Bedside Glucose 298 H 250 H Troponin I < 0.012 < 0.012 Test 04/17/18 01:49 04/17/18 06:23 04/17/18 07:01 04/17/18 07:41 Bedside Glucose 384 H 403 *H 391 H 387 H Test 04/17/18 07:55 04/17/18 11:46 04/17/18 13:57 White Blood 45.0 H Count Red Blood Count 4.22 Hemoglobin 12.4 Hematocrit 39.6 Mean Corpuscular 93.8 Volume Mean Corpuscular 29.4 Hemoglobin Mean Corpuscular 31.3 L Hemoglobin [place] Red Cell 15.3 H Distribution Width Platelet Count 188 Mean Platelet 12.0 H Volume Immature 2.200 H Granulocytes % Neutrophils % Segmented 87 H Neutrophils % (Manual) Band Neutrophils 9 H % (Manual) Lymphocytes % Lymphocytes % 1 L (Manual) Monocytes % Monocytes % 3 (Manual) Eosinophils % Basophils % Nucleated Red 0.0 Blood Cells % Immature 0.990 H Granulocytes # Neutrophils # Neutrophils # 41.0 H (Manual) Band Neutrophils 4.0 H # Lymphocytes 0.4 L (Manual) Lymphocytes # Monocytes # Monocytes # 1.3 H (Manual) Eosinophils # Basophils # Nucleated Red Blood Cells # Platelet NORMAL Estimate Poikilocytosis 1+ Anisocytosis 1+ Macrocytosis 1+ Spherocytes 1+ Sodium Level 137 Potassium Level 3.8 Chloride Level 94 L Carbon Dioxide 38 H Level Anion Gap 5 Blood Urea 29 #H Nitrogen Creatinine 0.77 Est Glomerular > 60 Filtrat Rate mL/min Glucose Level 433 *H 540 *H Calcium Level 8.8 Phosphorus Level 2.8 Magnesium Level 1.8 Troponin I < 0.012 Bedside Glucose 483 *H Subjective 24 Hr Interval Summary Respiratory: shortness of breath Gastrointestinal: pain Musculoskeletal: bone/joint pain Exam/Review of Systems Vital Signs Vitals Vital Signs Date Temp Pulse Resp B/P (MAP) Pulse Ox O2 O2 Flow FiO2 Time Delivery Rate 04/17/18 Nasal 3.0 13:30 Cannula 04/17/18 98 20 97 13:03 04/17/18 97.9 86/49 (61) 11:39 04/16/18 30 22:34 Intake and Output 04/16/18 04/16/18 04/17/18 1515:00 23:00 07:00 IntakeIntake Total 1100 ml 1000 ml OutputOutput Total 1700 ml 1850 ml BalanceBalance -600 ml -850 ml Exam Constitutional: alert, oriented Respiratory: diminished breath sounds, labored breathing Cardiovascular: regular rate and rhythm Gastrointestinal: soft, surgical scars, other (large hernia) Medications Medications Current Medications IV Flush (NS 3 ml) 3 ml PER PROTOCOL IV ; Start 04/15/18 at 17:00 Ondansetron HCl (Zofran Inj) 4 mg Q6H PRN IV NAUSEA AND/OR VOMITING; Start 04/15/18 at 17:00 Acetaminophen (Tylenol Tab) 650 mg Q6H PRN PO PAIN LEVEL 1-3 OR FEVER Last administered on 04/16/18at 03:28; Admin Dose 650 MG; Start 04/15/18 at 17:00 Docusate Sodium (Colace) 100 mg Q12H PRN PO CONSTIPATION Last administered on 04/17/18at 09:46; Admin Dose 100 MG; Start 04/15/18 at 17:00 Pantoprazole (Protonix Iv) 40 mg DAILY@06 IV Last administered on 04/17/18at 06:16; Admin Dose 40 MG; Start 04/16/18 at 06:00 Aspirin (Halfprin) 81 mg DAILY PO Last administered on 04/17/18 09:46; Admin Dose 81 MG; Start 04/16/18 at 09:00 Atorvastatin Calcium (Lipitor) 10 mg QHS PO Last administered on 04/16/18at 20:15; Admin Dose 10 MG; Start 04/15/18 at 21:00 Digoxin (Digoxin) 0.125 mg DAILY@13 PO Last administered on 04/17/18at 14:22; Admin Dose 0.125 MG; Start 04/16/18 at 13:00 Lisinopril (Zestril) 2.5 mg DAILY PO Last administered on 04/17/18at 09:47; Admin Dose 2.5 MG; Start 04/16/18 at 09:00 Miscellaneous Information 1 ea NOTE XX ; Start 04/15/18 at 17:30 Glucose (Glutose) 15 gm Q15M PRN PO DECREASED GLUCOSE; Start 04/15/18 at 17:30 Glucose (Glutose) 22.5 gm Q15M PRN PO DECREASED GLUCOSE; Start 04/15/18 at 17:30 Dextrose (D50w Syringe) 25 ml Q15M PRN IV DECREASED GLUCOSE; Start 04/15/18 at 17:30 Dextrose (D50w Syringe) 50 ml Q15M PRN IV DECREASED GLUCOSE; Start 04/15/18 at 17:30 Glucagon (Glucagen) 1 mg Q15M PRN IM DECREASED GLUCOSE; Start 04/15/18 at 17:30 Glucose (Glutose) 15 gm Q15M PRN BUCCAL DECREASED GLUCOSE; Start 04/15/18 at 17:30 Lorazepam (Ativan) 1 mg BID PRN PO ANXIETY Last administered on 04/17/18at 09:46; Admin Dose 1 MG; Start 04/15/18 at 23:00 Levalbuterol (Xopenex Neb) 1.25 mg Q4H RESP THERAPY HHN Last administered on 04/17/18at 12:58; Admin Dose 1.25 MG; Start 04/16/18 at 01:00 Ipratropium [place] (Atrovent 0.02% (Neb)) 0.5 mg Q4H RESP THERAPY HHN Last administered on 04/17/18at 12:58; Admin Dose 0.5 MG; Start 04/16/18 at 01:00 Acetaminophen/ Hydrocodone Bitart ([place] (5/325)) 1 tab Q8 PRN PO MODERATE PAIN LEVEL 4-6 Last administered on 04/17/18at 09:46; Admin Dose 1 TAB; Start 04/16/18 at 10:30 IV Flush (NS 10 ml) 10 ml PRN PRN IV IV PROTOCOL; Start 04/16/18 at 10:30 Cefepime HCl 50 ml @ 100 mls/hr Q12 IVPB Last administered on 04/17/18at 09:48; Admin Dose 100 MLS/HR; Start 04/16/18 at 21:00 Metoprolol Succinate (Toprol Xl) 12.5 mg BID PO Last administered on 04/17/18at 09:47; Admin Dose 12.5 MG; Start 04/16/18 at 21:00 Insulin Glargine (Lantus) 38 units QHS SC Last administered on 04/16/18at 23:06; Admin Dose 38 UNITS; Start 04/16/18 at 21:30 Furosemide (Lasix) 40 mg BID DIURETICS IV ; Start 04/17/18 at 18:00 Methylprednisolone Sodium Succinate (Solu-Medrol) 40 mg Q8 IV ; Start 04/17/18 at 22:00 Hydromorphone HCl (Dilaudid) 0.5 mg Q6H PRN IV SEVERE PAIN LEVEL 7-10; Start 04/17/18 at 15:00 Insulin Human NPH (Humulin N) 10 unit Q8 SC ; Start 04/17/18 at 22:00 Insulin Aspart (Novolog Insulin Pen) 10 unit WITH MEALS SC ; Start 04/17/18 at 17:55 Diagnostic Test (Pha) (Accu-Chek) 1 ea 02 XX ; Start 04/18/18 at 02:00 Insulin Aspart (Novolog Insulin Pen) NOVOLOG *MILD* ALGORITHM WITH MEALS BEDTIME SC ; Start 04/17/18 at 17:55 Miscellaneous Information (*Order Clarification Bulletin) PHARMACY TO MIX ALL IVPB IN... Q96H XX ; Start 04/17/18 at 15:30 Levofloxacin (Levaquin) 500 mg DAILY@06 PO ; Start 04/18/18 at 06:00 ALEKSANDRA SALCIDO MD 04/17/18 1711: Assessment/Plan Assessment/Plan Assessment/Plan seen and examined improved resp status dec steroids NPH added strep bacterimia . id following dec lasix Result Diagram: 04/17/18 0755 04/17/18 1357 MELANIA LAMBERT Apr 17, 2018 15:35 ALEKSANDRA SALCIDO MD Apr 17, 2018 17:11
[2018-04-17] MEDS ORDERED: NPH, HUMAN INSULIN ISOPHANE 3ML VIAL SC ONE (16:00)
[2018-04-17] MEDS ORDERED: FUROSEMIDE 40 MG INJ ONE (16:29)
[2018-04-17] MEDS ORDERED: INSULIN ASPART [NOVOLOG] 3 ML PEN SC SCH (17:55)
--- NOTE | 2018-04-17 18:05 | NUR ---
ND OF SHIFT PT EATS FOODS BETWEEN MEALS AND DRINK JUICES AND SODAS, PT EDUCATED TO RATIONALE FOR DIABETIC RESTRICTIONS AND SIDE EFFECTS OF SOLUMEDROL, PT VERBALIZES UNDERSTANDING, PT STILL INSISTS TO EAT EXTRA FOODS, REFUSES BED ALARM, EDUCATED TO RATIONALE OF BED ALARM AND RISK OF NOT USING IT FOR SAFETY, VERBALIZES UNDERSTANDING AND STILL INSISTS TO HAVE BED ALARM OFF, DENIES PAIN, STABLE FOR HANDOFF Addendum: 04/17/18 at 1808 by JUAN M BARROSO RN END OF SHIFT
[2018-04-17] MEDS: ATORVASTATIN 10 MG TAB PO SCH (21:39)
[2018-04-17] MEDS: INSULIN GLARGINE [LANTus] (100 UNITS/ML) SYG SC SCH (21:53)
[2018-04-17] MEDS: NPH, HUMAN INSULIN ISOPHANE 3ML VIAL SC SCH (22:12)
[2018-04-18] VITALS (13 sets, daily range): BP systolic 84–128; BP diastolic 43–71; PULSE 58–150; RESP 16–20
--- NOTE | 2018-04-18 | NUR ---
Nursing Note: ENDORSED CONTINUUM OF CARE TO ROB PIPER
[2018-04-18] MEDS: HYDROCODONE/APAP (5/325) TAB PO PRN (01:27)
[2018-04-18] MEDS: LORAZEPAM 1 MG TAB PO PRN ×2 (01:33→21:18)
[2018-04-18] MEDS: IPRATROPIUM (NEB) 0.5 MG/2.5 ML AMP HHN SCH ×6 (01:55→21:20)
[2018-04-18] MEDS: LEVALBUTEROL (NEB) 1.25 MG/0.5 ML AMP HHN SCH ×6 (01:55→21:20)
[2018-04-18] MEDS ORDERED: ACCU-CHEK XX SCH (02:00)
[2018-04-18] MEDS: ACCU-CHEK XX SCH (02:00)
[2018-04-18] MEDS: PANTOPRAZOLE (EC) 40 MG TAB PO SCH (05:36)
[2018-04-18] MEDS: METHYLPREDNISOLONE 40 MG INJ IV SCH ×3 (05:36→21:39)
[2018-04-18] MEDS: FUROSEMIDE 40 MG INJ IV SCH ×2 (05:37→17:53)
[2018-04-18] MEDS ORDERED: LEVOFLOXACIN 500 MG TAB PO SCH (06:00)
[2018-04-18] MEDS: HYDROmorphONE 0.5 MG/0.5 ML SYG IV PRN ×3 (06:00→17:53)
[2018-04-18] MEDS: NPH, HUMAN INSULIN ISOPHANE 3ML VIAL SC SCH ×3 (06:03→21:45)
[2018-04-18] MEDS: ASPIRIN (EC) 81 MG TAB PO SCH (08:17)
[2018-04-18] MEDS: CEFEPIME 1GM/50 ML (PMX) 50 ML IVPB SCH (08:17)
[2018-04-18] MEDS: LISINOPRIL 5 MG TAB PO SCH (08:19)
[2018-04-18] MEDS: METOPROLOL (XL) 25 MG TAB PO SCH ×2 (08:20→20:53)
[2018-04-18] MEDS: INSULIN ASPART [NOVOLOG] 3 ML PEN SC SCH ×7 (08:31→21:03)
--- NOTE | 2018-04-18 10:55 | CONS ---
Date/Time of Note Date/Time of Note DATE: 04/18/18 TIME: 10:51 Assessment/Plan Assessment/Plan Hospital Course ID PROGRESS NOTE CURRENT ABX: DAY # 3 => Cefepime + Levaquin 04/18/18 0541 04/18/18 0541 24H INTERVAL SUMMARY * A/A/O, very pleasant, polite, VSS, still reports SOB on supplemental O2 * No fevers, WBC coming down * 04/16/18 CXR: Stable patchy opacities of the mid left lung and lower right lung, which may represent persistent multifocal pneumonia. Stable cardiomegaly and/or pericardial effusion. Stable mild pulmonary vascular congestion. * 04/15/18 CXR: 2. Oval-shaped 6 cm mass like opacity lateral to the left hilum, new from 2017. This may represent a lung mass or round pneumonia. MICRO * 04/15/18 (-) MRSA * 04/15/18 (-)Respiratory Cx * 04/15/18 (-)INfluenza A/B * 04/15/18 BCx (+) BLOOD CULTURE Final BCULT GRAM BOTTLE 1 Gram positive cocci in pairs and chains . seen on gram stain of the broth Organism 1 STREPTOCOCCUS PNEUMONIAE S.PNEUMO M.I.C. RX --------- --- CEFOTAXIME 0.016 S PENICILLIN 0.016 S VANCOMYCIN 1 S S.PNEUMO Zone Size RX --------- --- * CLINDAMYCIN S * ERYTHROMYCIN S PHYSICAL EXAMINATION: GENERAL: Afebrile, VSS, polite/pleasant affect HEENT: AT, NC, anicteric =unremarkable NECK: Supple, trach CHEST: Equal chest rise bilaterally = supplemental O2 HEART: Pulse RRR ABDOMEN: Soft / NT /Morbid obese EXTREMITIES: Warm, dry, SKIN: No rash, no diaphoresis ID ASSESSMENT 47 yo F w/super morbid obesity admit with: 1. Severe sepsis with acute hypoxemia 2. Strep pneumonia bacteremia due to bilateral PNA 3. Community-acquired pneumonia and possible strep as well 4. CHF exacerbation * Systolic congestive heart failure with ejection fraction of 25% to 30%. 5. Chronic atrial fibrillation 6. Adult-onset diabetes. 7. Hypertension. 8. Dyslipidemia. 9. Abdominal pain secondary to abdominal wall hernia. 10. Psychiatric disorder. (-)MRSA Nares ABX ALLERGIES: NKDA (Morphine) INVASIVES: Right upper extremity PICC line, [place] CURRENT ABX: DAY 3 => Cefepime + Levaquin s/p ID RECOMMENDATIONS/PLAN: 1. PCN is the ABX of choice with Streptococcal PNA/Bacteremia * Change Cefepime to UNASYN IV * Continue Levaquin PO 2. She will need 7-8 days IV ABX coverage for bacteremia followed by 7 days PO to complete 14 days for bacteremia * Anticipate HH w/Ceftriaxone IV to complete 14 days vs Augmentin PO after she receives 7 days IV ABX . Result Diagram: 04/18/18 0541 04/18/18 0541 Results 24hrs Laboratory Tests Test 04/17/18 11:46 04/17/18 13:57 04/17/18 15:36 04/17/18 16:43 Bedside Glucose 483 *H 452 *H 353 H Glucose Level 540 *H Test 04/17/18 21:39 04/18/18 01:35 04/18/18 05:41 04/18/18 08:15 Bedside Glucose 299 H 170 165 White Blood 36.1 H Count Red Blood Count 4.12 L Hemoglobin 12.3 Hematocrit 38.9 Mean Corpuscular 94.4 Volume Mean Corpuscular 29.9 Hemoglobin Mean Corpuscular 31.6 L Hemoglobin Bel[place] Red Cell 15.3 H Distribution Width Platelet Count 177 Mean Platelet 11.8 H Volume Immature 2.400 H Granulocytes % Neutrophils % 89.8 H Lymphocytes % 4.4 L Monocytes % 3.2 Eosinophils % 0.0 Basophils % 0.2 Nucleated Red 0.0 Blood Cells % Immature 0.870 H Granulocytes # Neutrophils # 32.4 H Lymphocytes # 1.6 Monocytes # 1.2 H Eosinophils # 0.0 Basophils # 0.1 Nucleated Red 0.0 Blood Cells # Sodium Level 140 Potassium Level 3.5 Chloride Level 95 L Carbon Dioxide 40 H Level Anion Gap 5 Blood Urea 30 H Nitrogen Creatinine 0.68 Est Glomerular > 60 Filtrat Rate mL/min Glucose Level 146 # Calcium Level 8.7 Consultation Date/Type/Reason Admit Date/Time Apr 15, 2018 at 16:15 Initial Consult Date 04/16/18 Requesting Provider: ALEKSANDRA SALCIDO MD Exam/Review of Systems Vital Signs Vitals Vital Signs Date Temp Pulse Resp B/P (MAP) Pulse Ox O2 O2 Flow FiO2 Time Delivery Rate 04/18/18 75 20 97 Nasal 3.0 09:17 Cannula 04/18/18 98.4 104/56 07:25 (72) 04/16/18 30 22:34 Intake and Output 04/17/18 04/17/18 04/18/18 1515:00 23:00 07:00 IntakeIntake Total 50 ml 1500 ml 1000 ml OutputOutput Total 2500 ml 800 ml BalanceBalance 50 ml -1000 ml 200 ml Medications Medications Current Medications IV Flush (NS 3 ml) 3 ml PER PROTOCOL IV ; Start 04/15/18 at 17:00 Ondansetron HCl (Zofran Inj) 4 mg Q6H PRN IV NAUSEA AND/OR VOMITING; Start 04/15/18 at 17:00 Acetaminophen (Tylenol Tab) 650 mg Q6H PRN PO PAIN LEVEL 1-3 OR FEVER Last administered on 04/16/18at 03:28; Admin Dose 650 MG; Start 04/15/18 at 17:00 Docusate Sodium (Colace) 100 mg Q12H PRN PO CONSTIPATION Last administered on 04/17/18at 09:46; Admin Dose 100 MG; Start 04/15/18 at 17:00 Aspirin (Halfprin) 81 mg DAILY PO Last administered on 04/18/18at 08:17; Admin Dose 81 MG; Start 04/16/18 at 09:00 Atorvastatin Calcium (Lipitor) 10 mg QHS PO Last administered on 04/17/18at 21:39; Admin Dose 10 MG; Start 04/15/18 at 21:00 Digoxin (Digoxin) 0.125 mg DAILY@13 PO Last administered on 04/17/18at 14:22; Admin Dose 0.125 MG; Start 04/16/18 at 13:00 Lisinopril (Zestril) 2.5 mg DAILY PO Last administered on 04/18/18at 08:19; Admin Dose 2.5 MG; Start 04/16/18 at 09:00 Miscellaneous Information 1 ea NOTE XX ; Start 04/15/18 at 17:30 Glucose (Glutose) 15 gm Q15M PRN PO DECREASED GLUCOSE; Start 04/15/18 at 17:30 Glucose (Glutose) 22.5 gm Q15M PRN PO DECREASED GLUCOSE; Start 04/15/18 at 17:30 Dextrose (D50w Syringe) 25 ml Q15M PRN IV DECREASED GLUCOSE; Start 04/15/18 at 17:30 Dextrose (D50w Syringe) 50 ml Q15M PRN IV DECREASED GLUCOSE; Start 04/15/18 at 17:30 Glucagon (Glucagen) 1 mg Q15M PRN IM DECREASED GLUCOSE; Start 04/15/18 at 17:30 Glucose (Glutose) 15 gm Q15M PRN BUCCAL DECREASED GLUCOSE; Start 04/15/18 at 17:30 Lorazepam (Ativan) 1 mg BID PRN PO ANXIETY Last administered on 04/18/18at 01:33; Admin Dose 1 MG; Start 04/15/18 at 23:00 Levalbuterol (Xopenex Neb) 1.25 mg Q4H RESP THERAPY HHN Last administered on 04/18/18at 09:17; Admin Dose 1.25 MG; Start 04/16/18 at 01:00 Ipratropium [place] (Atrovent 0.02% (Neb)) 0.5 mg Q4H RESP THERAPY HHN Last administered on 04/18/18at 09:17; Admin Dose 0.5 MG; Start 04/16/18 at 01:00 Acetaminophen/ Hydrocodone Bitart ([place] (5/325)) 1 tab Q8 PRN PO MODERATE PAIN LEVEL 4-6 Last administered on 04/18/18at 01:27; Admin Dose 1 TAB; Start 04/16/18 at 10:30 IV Flush (NS 10 ml) 10 ml PRN PRN IV IV PROTOCOL; Start 04/16/18 at 10:30 Cefepime HCl 50 ml @ 100 mls/hr Q12 IVPB Last administered on 04/18/18at 08:17; Admin Dose 100 MLS/HR; Start 04/16/18 at 21:00 Metoprolol Succinate (Toprol Xl) 12.5 mg BID PO Last administered on 04/17/18at 09:47; Admin Dose 12.5 MG; Start 04/16/18 at 21:00 Insulin Glargine (Lantus) 38 units QHS SC Last administered on 04/17/18at 21:53 ; Admin Dose 38 UNITS; Start 04/16/18 at 21:30 Furosemide (Lasix) 40 mg BID DIURETICS IV Last administered on 04/18/18at 05:37; Admin Dose 40 MG; Start 04/17/18 at 18:00 Methylprednisolone Sodium Succinate (Solu-Medrol) 40 mg Q8 IV Last administered on 04/18/18 05:36; Admin Dose 40 MG; Start 04/17/18 at 22:00 Hydromorphone HCl (Dilaudid) 0.5 mg Q6H PRN IV SEVERE PAIN LEVEL 7-10 Last administered on 04/18/18 06:00; Admin Dose 0.5 MG; Start 04/17/18 at 15:00 Insulin Human NPH (Humulin N) 10 unit Q8 SC Last administered on 04/18/18 06:03; Admin Dose 10 UNIT; Start 04/17/18 at 22:00 Insulin Aspart (Novolog Insulin Pen) 10 unit WITH MEALS SC Last administered on 04/18/18 08:32; Admin Dose 10 UNIT; Start 04/17/18 at 17:55 Diagnostic Test (Pha) (Accu-Chek) 1 ea 02 XX Last administered on 04/18/18 02:00; Admin Dose 1 EA; Start 04/18/18 at 02:00 Insulin Aspart (Novolog Insulin Pen) NOVOLOG *MILD* ALGORITHM WITH MEALS BEDTIME SC Last administered on 04/18/18 08:31; Admin Dose 1 UNIT; Start 04/17/18 at 17:55 Miscellaneous Information (*Order Clarification Bulletin) PHARMACY TO MIX ALL IVPB IN... Q96H XX ; Start 04/17/18 at 15:30 Levofloxacin (Levaquin) 500 mg DAILY@06 PO Last administered on 04/18/18 05:36; Admin Dose 500 MG; Start 04/18/18 at 06:00 Pantoprazole (Protonix Tab) 40 mg DAILY@06 PO Last administered on 04/18/18 05:36; Admin Dose 40 MG; Start 04/18/18 at 06:00 SON MCKENZIE NP Apr 18, 2018 10:55
[2018-04-18] MEDS: DIGOXIN 0.125 MG TAB PO SCH (13:50)
[2018-04-18] MEDS: AMPICILLIN/SULB 3 GM/NS (PMX) 100 ML IVPB SCH ×2 (13:50→18:58)
--- NOTE | 2018-04-18 15:34 | CONS ---
Date/Time of Note Date/Time of Note DATE: 04/18/18 TIME: 15:32 Consult Date/Type/Reason Admit Date/Time Apr 15, 2018 at 16:15 Initial Consult Date 04/16/18 Type of Consultation: Pulmonary ICU Requesting Provider: ALEKSANDRA SALCIDO MD Subjective No events. Afebrile. Objective Vital Signs Date Temp Pulse Resp B/P (MAP) Pulse Ox O2 O2 Flow FiO2 Time Delivery Rate 04/18/18 3.0 15:22 04/18/18 78 20 98 Nasal 13:59 Cannula 04/18/18 97.6 103/52 11:40 (69) 04/16/18 30 22:34 Intake and Output 04/17/18 04/17/18 04/18/18 1515:00 23:00 07:00 IntakeIntake Total 50 ml 1500 ml 1000 ml OutputOutput Total 2500 ml 800 ml BalanceBalance 50 ml -1000 ml 200 ml Exam HEENT: Neck supple; no JVD; no LAD CVS: RRR, S1 and S2 CHEST: Bilateral rales and occ wheezing ABD: Soft, obese, NT, + BS EXT: No c/c; + edema Results/Medications Result Diagram: 04/18/18 0541 04/18/18 0541 Results 24 hrs Laboratory Tests Test 04/17/18 15:36 04/17/18 16:43 04/17/18 21:39 04/18/18 01:35 Bedside Glucose 452 *H 353 H 299 H 170 Test 04/18/18 05:41 04/18/18 08:15 04/18/18 12:03 04/18/18 13:48 White Blood 36.1 H Count Red Blood Count 4.12 L Hemoglobin 12.3 Hematocrit 38.9 Mean Corpuscular 94.4 Volume Mean Corpuscular 29.9 Hemoglobin Mean Corpuscular 31.6 L Hemoglobin Bel[place] Red Cell 15.3 H Distribution Width Platelet Count 177 Mean Platelet 11.8 H Volume Immature 2.400 H Granulocytes % Neutrophils % 89.8 H Lymphocytes % 4.4 L Monocytes % 3.2 Eosinophils % 0.0 Basophils % 0.2 Nucleated Red 0.0 Blood Cells % Immature 0.870 H Granulocytes # Neutrophils # 32.4 H Lymphocytes # 1.6 Monocytes # 1.2 H Eosinophils # 0.0 Basophils # 0.1 Nucleated Red 0.0 Blood Cells # Sodium Level 140 Potassium Level 3.5 Chloride Level 95 L Carbon Dioxide 40 H Level Anion Gap 5 Blood Urea 30 H Nitrogen Creatinine 0.68 Est Glomerular > 60 Filtrat Rate mL/min Glucose Level 146 # Calcium Level 8.7 Bedside Glucose 165 316 H 362 H Medications Current Medications IV Flush (NS 3 ml) 3 ml PER PROTOCOL IV ; Start 04/15/18 at 17:00 Ondansetron HCl (Zofran Inj) 4 mg Q6H PRN IV NAUSEA AND/OR VOMITING; Start at 17:00 Acetaminophen (Tylenol Tab) 650 mg Q6H PRN PO PAIN LEVEL 1-3 OR FEVER Last administered on 04/16/18at 03:28; Admin Dose 650 MG; Start 04/15/18 at 17:00 Docusate Sodium (Colace) 100 mg Q12H PRN PO CONSTIPATION Last administered on 04/17/18at 09:46; Admin Dose 100 MG; Start 04/15/18 at 17:00 Aspirin (Halfprin) 81 mg DAILY PO Last administered on 04/18/18at 08:17; Admin Dose 81 MG; Start 04/16/18 at 09:00 Atorvastatin Calcium (Lipitor) 10 mg QHS PO Last administered on 04/17/18at 21:39; Admin Dose 10 MG; Start 04/15/18 at 21:00 Digoxin (Digoxin) 0.125 mg DAILY@13 PO Last administered on 04/18/18at 13:50; Admin Dose 0.125 MG; Start 04/16/18 at 13:00 Lisinopril (Zestril) 2.5 mg DAILY PO Last administered on 04/18/18at 08:19; Admin Dose 2.5 MG; Start 04/16/18 at 09:00 Miscellaneous Information 1 ea NOTE XX ; Start 04/15/18 at 17:30 Glucose (Glutose) 15 gm Q15M PRN PO DECREASED GLUCOSE; Start 04/15/18 at 17:30 Glucose (Glutose) 22.5 gm Q15M PRN PO DECREASED GLUCOSE; Start 04/15/18 at 17:30 Dextrose (D50w Syringe) 25 ml Q15M PRN IV DECREASED GLUCOSE; Start 04/15/18 at 17:30 Dextrose (D50w Syringe) 50 ml Q15M PRN IV DECREASED GLUCOSE; Start 04/15/18 at 17:30 Glucagon (Glucagen) 1 mg Q15M PRN IM DECREASED GLUCOSE; Start 04/15/18 at 17:30 Glucose (Glutose) 15 gm Q15M PRN BUCCAL DECREASED GLUCOSE; Start 04/15/18 at 17:30 Lorazepam (Ativan) 1 mg BID PRN PO ANXIETY Last administered on 04/18/18 01:33; Admin Dose 1 MG; Start 04/15/18 at 23:00 Levalbuterol (Xopenex Neb) 1.25 mg Q4H RESP THERAPY HHN Last administered on 04/18/18 13:58; Admin Dose 1.25 MG; Start 04/16/18 at 01:00 Ipratropium [place] (Atrovent 0.02% (Neb)) 0.5 mg Q4H RESP THERAPY HHN Last administered on 04/18/18 13:58; Admin Dose 0.5 MG; Start 04/16/18 at 01:00 Acetaminophen/ Hydrocodone Bitart ([place] (5/325)) 1 tab Q8 PRN PO MODERATE PAIN LEVEL 4-6 Last administered on 04/18/18 01:27; Admin Dose 1 TAB; Start 04/16/18 at 10:30 IV Flush (NS 10 ml) 10 ml PRN PRN IV IV PROTOCOL; Start 04/16/18 at 10:30 Metoprolol Succinate (Toprol Xl) 12.5 mg BID PO Last administered on 04/17/18at 09:47; Admin Dose 12.5 MG; Start 04/16/18 at 21:00 Insulin Glargine (Lantus) 38 units QHS SC Last administered on 04/17/18at 21:53; Admin Dose 38 UNITS; Start 04/16/18 at 21:30 Furosemide (Lasix) 40 mg BID DIURETICS IV Last administered on 04/18/18 05:37; Admin Dose 40 MG; Start 04/17/18 at 18:00 Methylprednisolone Sodium Succinate (Solu-Medrol) 40 mg Q8 IV Last administered on 04/18/18 13:51; Admin Dose 40 MG; Start 04/17/18 at 22:00 Hydromorphone HCl (Dilaudid) 0.5 mg Q6H PRN IV SEVERE PAIN LEVEL 7-10 Last administered on 12/29/18at 11:56; Admin Dose 0.5 MG; Start 04/17/18 at 15:00 Insulin Human NPH (Humulin N) 10 unit Q8 SC Last administered on 04/18/18at 13:58; Admin Dose 10 UNIT; Start 04/17/18 at 22:00 Insulin Aspart (Novolog Insulin Pen) 10 unit WITH MEALS SC Last administered on 04/18/18at 12:20; Admin Dose 10 UNIT; Start 04/17/18 at 17:55 Diagnostic Test (Pha) (Accu-Chek) 1 ea 02 XX Last administered on 04/18/18at 02:00; Admin Dose 1 EA; Start 04/18/18 at 02:00 Insulin Aspart (Novolog Insulin Pen) NOVOLOG *MILD* ALGORITHM WITH MEALS BEDTIME SC Last administered on 04/18/18at 12:19; Admin Dose 5 UNIT; Start 04/17/18 at 17:55 Miscellaneous Information (*Order Clarification Bulletin) PHARMACY TO MIX ALL IVPB IN... Q96H XX ; Start 04/17/18 at 15:30 Pantoprazole (Protonix Tab) 40 mg DAILY@06 PO Last administered on 04/18/18at 05:36; Admin Dose 40 MG; Start 04/18/18 at 06:00 Ampicillin Sodium/ Sulbactam Sodium 100 ml @ 100 mls/hr Q6 IVPB Last administered on 04/18/18at 13:50; Admin Dose 100 MLS/HR; Start 04/18/18 at 12:30 Assessment/Plan Additional Assessment/Plan IMP: 1. Acute on chronic hypoxemic respiratory failure secondary to streptococcal pneumonia 2. Worsening hyperglycemia 3. Morbid obesity with chronic hypercapnia 4. Congestive cardiac failure with severe cardiomyopathy 5. Chronic atrial fibrillation RECS: 1. Continue bronchodilators 2. Antibiotics 3. Supplemental O2 4. Nocturnal NIV 5. OOB to chair HUAN OWEN MD Apr 18, 2018 15:34
--- NOTE | 2018-04-18 15:36 | CONS ---
Date/Time of Note Date/Time of Note DATE: 04/18/18 TIME: 15:34 Assessment/Plan Assessment/Plan Hospital Course IMPRESSION: 1. Congestive heart failure exacerbation, systolic, acute on chronic.-neg trop x 3 2. Hypotension, borderline. 3. Tachycardia consistent with sinus tachycardia in the setting of likely decompensated congestive heart failure. 4. Chronic obstructive pulmonary disease exacerbation. 5. Possible pneumonia. 6. Diabetes mellitus. 7. abd pain/constipation Recc: -Tele -serial ecg's -Continue BB/ACEI as tolerated only -Continue lasix at decresaed dose and follow volume status clsoely -Continue abx's/steroids/bronchodilators -Continue asa/digoxin Result Diagram: 04/18/18 0541 04/18/18 0541 Results 24hrs Laboratory Tests Test 04/17/18 15:36 04/17/18 16:43 04/17/18 21:39 04/18/18 01:35 Bedside Glucose 452 *H 353 H 299 H 170 Test 04/18/18 05:41 04/18/18 08:15 04/18/18 12:03 04/18/18 13:48 White Blood 36.1 H Count Red Blood Count 4.12 L Hemoglobin 12.3 Hematocrit 38.9 Mean Corpuscular 94.4 Volume Mean Corpuscular 29.9 Hemoglobin Mean Corpuscular 31.6 L Hemoglobin Bel[place] nt Red Cell 15.3 H Distribution Width Platelet Count 177 Mean Platelet 11.8 H Volume Immature 2.400 H Granulocytes % Neutrophils % 89.8 H Lymphocytes % 4.4 L Monocytes % 3.2 Eosinophils % 0.0 Basophils % 0.2 Nucleated Red 0.0 Blood Cells % Immature 0.870 H Granulocytes # Neutrophils # 32.4 H Lymphocytes # 1.6 Monocytes # 1.2 H Eosinophils # 0.0 Basophils # 0.1 Nucleated Red 0.0 Blood Cells # Sodium Level 140 Potassium Level 3.5 Chloride Level 95 L Carbon Dioxide 40 H Level Anion Gap 5 Blood Urea 30 H Nitrogen Creatinine 0.68 Est Glomerular > 60 Filtrat Rate mL/min Glucose Level 146 # Calcium Level 8.7 Bedside Glucose 165 316 H 362 H Consultation Date/Type/Reason Admit Date/Time Apr 15, 2018 at 16:15 Initial Consult Date 04/16/18 Type of Consult cardiology Reason for Consultation CHF Requesting Provider: ALEKSANDRA SALCIDO MD Exam/Review of Systems Vital Signs Vitals Vital Signs Date Temp Pulse Resp B/P (MAP) Pulse Ox O2 O2 Flow FiO2 Time Delivery Rate 04/18/18 3.0 15:22 04/18/18 78 20 98 Nasal 13:59 Cannula 04/18/18 97.6 103/52 11:40 (69) 04/16/18 30 22:34 Intake and Output 04/17/18 04/17/18 04/18/18 1515:00 23:00 07:00 IntakeIntake Total 50 ml 1500 ml 1000 ml OutputOutput Total 2500 ml 800 ml BalanceBalance 50 ml -1000 ml 200 ml Exam Review of Systems: CONSTITUTIONAL: No fevers, chills. PULMONARY: mild sob-ongoing CARDIOVASCULAR: No chest pain/palpitations GASTROINTESTINAL: No nausea/vomiting. GENITOURINARY: No hematuria/dysuria. MUSCULOSKELETAL: No myagias/arthalgias. PSYCHIATRIC: The patient denies depression. NEUROLOGIC: No weakness Constitutional: alert Psych: no complaints Head: normocephalic ENMT: mucosa pink and moist Neck: supple, jvd (9cm water) Respiratory: diminished breath sounds (at bases/B), wheezing (expiratory mild) Cardiovascular: regular rate and rhythm Gastrointestinal: soft, non-tender Musculoskeletal: muscle tone (normal) Extremities: edema (trace/B) Neurological: other (No focal deficits) Medications Medications Current Medications IV Flush (NS 3 ml) 3 ml PER PROTOCOL IV ; Start 04/15/18 at 17:00 Ondansetron HCl (Zofran Inj) 4 mg Q6H PRN IV NAUSEA AND/OR VOMITING; Start 04/15/18 at 17:00 Acetaminophen (Tylenol Tab) 650 mg Q6H PRN PO PAIN LEVEL 1-3 OR FEVER Last administered on 04/16/18at 03:28; Admin Dose 650 MG; Start 04/15/18 at 17:00 Docusate Sodium (Colace) 100 mg Q12H PRN PO CONSTIPATION Last administered on 04/17/18at 09:46; Admin Dose 100 MG; Start 04/15/18 at 17:00 Aspirin (Halfprin) 81 mg DAILY PO Last administered on 04/18/18at 08:17; Admin Dose 81 MG; Start 04/16/18 at 09:00 Atorvastatin Calcium (Lipitor) 10 mg QHS PO Last administered on 04/17/18at 21:39; Admin Dose 10 MG; Start 04/15/18 at 21:00 Digoxin (Digoxin) 0.125 mg DAILY@13 PO Last administered on 04/18/18at 13:50; Admin Dose 0.125 MG; Start 04/16/18 at 13:00 Lisinopril (Zestril) 2.5 mg DAILY PO Last administered on 04/18/18at 08:19; Admin Dose 2.5 MG; Start 04/16/18 at 09:00 Miscellaneous Information 1 ea NOTE XX ; Start 04/15/18 at 17:30 Glucose (Glutose) 15 gm Q15M PRN PO DECREASED GLUCOSE; Start 04/15/18 at 17:30 Glucose (Glutose) 22.5 gm Q15M PRN PO DECREASED GLUCOSE; Start 04/15/18 at 17:30 Dextrose (D50w Syringe) 25 ml Q15M PRN IV DECREASED GLUCOSE; Start 04/15/18 at 17:30 Dextrose (D50w Syringe) 50 ml Q15M PRN IV DECREASED GLUCOSE; Start 04/15/18 at 17:30 Glucagon (Glucagen) 1 mg Q15M PRN IM DECREASED GLUCOSE; Start 04/15/18 at 17:30 Glucose (Glutose) 15 gm Q15M PRN BUCCAL DECREASED GLUCOSE; Start 04/15/18 at 17:30 Lorazepam (Ativan) 1 mg BID PRN PO ANXIETY Last administered on 04/18/18at 01:33; Admin Dose 1 MG; Start 04/15/18 at 23:00 Levalbuterol (Xopenex Neb) 1.25 mg Q4H RESP THERAPY HHN Last administered on 04/18/18at 13:58; Admin Dose 1.25 MG; Start 04/16/18 at 01:00 Ipratropium [place] (Atrovent 0.02% (Neb)) 0.5 mg Q4H RESP THERAPY HHN Last administered on 04/18/18 13:58; Admin Dose 0.5 MG; Start 04/16/18 at 01:00 Acetaminophen/ Hydrocodone Bitart ([place] (5/325)) 1 tab Q8 PRN PO MODERATE PAIN LEVEL 4-6 Last administered on 04/18/18at 01:27; Admin Dose 1 TAB; Start 04/16/18 at 10:30 IV Flush (NS 10 ml) 10 ml PRN PRN IV IV PROTOCOL; Start 04/16/18 at 10:30 Metoprolol Succinate (Toprol Xl) 12.5 mg BID PO Last administered on 04/17/18at 09:47; Admin Dose 12.5 MG; Start 04/16/18 at 21:00 Insulin Glargine (Lantus) 38 units QHS SC Last administered on 04/17/18at 21:53; Admin Dose 38 UNITS; Start 04/16/18 at 21:30 Furosemide (Lasix) 40 mg BID DIURETICS IV Last administered on 04/18/18at 05:37; Admin Dose 40 MG; Start 04/17/18 at 18:00 Methylprednisolone Sodium Succinate (Solu-Medrol) 40 mg Q8 IV Last administered on 04/18/18at 13:51; Admin Dose 40 MG; Start 04/17/18 at 22:00 Hydromorphone HCl (Dilaudid) 0.5 mg Q6H PRN IV SEVERE PAIN LEVEL 7-10 Last administered on 04/18/18at 11:56; Admin Dose 0.5 MG; Start 04/17/18 at 15:00 Insulin Human NPH (Humulin N) 10 unit Q8 SC Last administered on 04/18/18at 13:58; Admin Dose 10 UNIT; Start 04/17/18 at 22:00 Insulin Aspart (Novolog Insulin Pen) 10 unit WITH MEALS SC Last administered on 04/18/18at 12:20; Admin Dose 10 UNIT; Start 04/17/18 at 17:55 Diagnostic Test (Pha) (Accu-Chek) 1 ea 02 XX Last administered on 04/18/18at 02:00; Admin Dose 1 EA; Start 04/18/18 at 02:00 Insulin Aspart (Novolog Insulin Pen) NOVOLOG *MILD* ALGORITHM WITH MEALS BEDTIME SC Last administered on 04/18/18at 12:19; Admin Dose 5 UNIT; Start 04/17/18 at 17:55 Miscellaneous Information (*Order Clarification Bulletin) PHARMACY TO MIX ALL IVPB IN... Q96H XX ; Start 04/17/18 at 15:30 Pantoprazole (Protonix Tab) 40 mg DAILY@06 PO Last administered on 04/18/18at 05:36; Admin Dose 40 MG; Start 04/18/18 at 06:00 Ampicillin Sodium/ Sulbactam Sodium 100 ml @ 100 mls/hr Q6 IVPB Last administered on 04/18/18at 13:50; Admin Dose 100 MLS/HR; Start 04/18/18 at 12:30 GAGAN GARCIA Apr 18, 2018 15:36
--- NOTE | 2018-04-18 16:10 | PN ---
Date/Time of Note Date/Time of Note DATE: 04/18/18 TIME: 16:07 Assessment/Plan VTE Prophylaxis Risk score (from Ns)>0 risk: 8 [place] [facility] [place]CD contraindicated: patient refusal Pharmacological prophylaxis: fondaparinux Lines/Catheters IV Catheter Type (from [facility]): PICC Line Central line still needed: Yes Urinary Cath still in place: No Assessment/Plan Hospital Course 1. Chest pain. Rule out acute coronary syndrome, denies any CP currently 2. Shortness of breath likely secondary to congestive heart failure exacerbation. The patient has been noncompliant with her Lasix. The patient left AMA last time. The patient also has EF of 20% to 30%. Now, the patient is also having fevers. We cannot rule out underlying pneumonia. 3. Acute on chronic systolic congestive heart failure. 4. Cardiomyopathy with EF of 25% to 30%. 5. Hypertension. 6. Atrial fibrillation on Eliquis. 6. History of cocaine use. 7. Morbidly obese. 8. Abdominal pain secondary to abdominal wall hernia. 9. Leukocytosis Assessment/Plan - start Tradjenta -cw nebs -DVT prophylaxis Eliquis - cw solumedrol 40 q8 - abx > cefepime - pul consult - cards consult - Influenza A and B neg - DM control, c/w lantus and mealtime insulin Result Diagram: 04/18/18 0541 04/18/18 0541 Results 24hrs Laboratory Tests Test 04/17/18 16:43 04/17/18 21:39 04/18/18 01:35 04/18/18 05:41 Bedside Glucose 353 H 299 H 170 White Blood 36.1 H Count Red Blood Count 4.12 L Hemoglobin 12.3 Hematocrit 38.9 Mean Corpuscular 94.4 Volume Mean Corpuscular 29.9 Hemoglobin Mean Corpuscular 31.6 L Hemoglobin Belén nt Red Cell 15.3 H Distribution Width Platelet Count 177 Mean Platelet 11.8 H Volume Immature 2.400 H Granulocytes % Neutrophils % 89.8 H Lymphocytes % 4.4 L Monocytes % 3.2 Eosinophils % 0.0 Basophils % 0.2 Nucleated Red 0.0 Blood Cells % Immature 0.870 H Granulocytes # Neutrophils # 32.4 H Lymphocytes # 1.6 Monocytes # 1.2 H Eosinophils # 0.0 Basophils # 0.1 Nucleated Red 0.0 Blood Cells # Sodium Level 140 Potassium Level 3.5 Chloride Level 95 L Carbon Dioxide 40 H Level Anion Gap 5 Blood Urea 30 H Nitrogen Creatinine 0.68 Est Glomerular > 60 Filtrat Rate mL/min Glucose Level 146 # Calcium Level 8.7 Test 04/18/18 08:15 04/18/18 12:03 04/18/18 13:48 Bedside Glucose 165 316 H 362 H Subjective 24 Hr Interval Summary Respiratory: pain, shortness of breath, sputum, wheezing Exam/Review of Systems Vital Signs Vitals Vital Signs Date Temp Pulse Resp B/P (MAP) Pulse Ox O2 O2 Flow FiO2 Time Delivery Rate 04/18/18 98.1 69 18 84/43 (57) 100 Nasal 16:04 Cannula 04/18/18 3.0 15:22 04/16/18 30 22:34 Intake and Output 04/17/18 04/17/18 04/18/18 1414:59 22:59 06:59 IntakeIntake Total 50 ml 1500 ml 1000 ml OutputOutput Total 2500 ml 800 ml BalanceBalance 50 ml -1000 ml 200 ml Exam Constitutional: alert, oriented Neck: supple Respiratory: diminished breath sounds, labored breathing, wheezing (left) Cardiovascular: regular rate and rhythm Gastrointestinal: soft, surgical scars, other (abd. hernia) Medications Medications Current Medications IV Flush (NS 3 ml) 3 ml PER PROTOCOL IV ; Start 04/15/18 at 17:00 Ondansetron HCl (Zofran Inj) 4 mg Q6H PRN IV NAUSEA AND/OR VOMITING; Start 04/15/18 at 17:00 Acetaminophen (Tylenol Tab) 650 mg Q6H PRN PO PAIN LEVEL 1-3 OR FEVER Last admi nistered on 04/16/18at 03:28; Admin Dose 650 MG; Start 04/15/18 at 17:00 Docusate Sodium (Colace) 100 mg Q12H PRN PO CONSTIPATION Last administered on 04/17/18at 09:46; Admin Dose 100 MG; Start 04/15/18 at 17:00 Aspirin (Halfprin) 81 mg DAILY PO Last administered on 04/18/18at 08:17; Admin Dose 81 MG; Start 04/16/18 at 09:00 Atorvastatin Calcium (Lipitor) 10 mg QHS PO Last administered on 04/17/18at 21:39; Admin Dose 10 MG; Start 04/15/18 at 21:00 Digoxin (Digoxin) 0.125 mg DAILY@13 PO Last administered on 04/18/18at 13:50; Admin Dose 0.125 MG; Start 04/16/18 at 13:00 Lisinopril (Zestril) 2.5 mg DAILY PO Last administered on 04/18/18at 08:19; Admin Dose 2.5 MG; Start 04/16/18 at 09:00 Miscellaneous Information 1 ea NOTE XX ; Start 04/15/18 at 17:30 Glucose (Glutose) 15 gm Q15M PRN PO DECREASED GLUCOSE; Start 04/15/18 at 17:30 Glucose (Glutose) 22.5 gm Q15M PRN PO DECREASED GLUCOSE; Start 04/15/18 at 17:30 Dextrose (D50w Syringe) 25 ml Q15M PRN IV DECREASED GLUCOSE; Start 04/15/18 at 17:30 Dextrose (D50w Syringe) 50 ml Q15M PRN IV DECREASED GLUCOSE; Start 04/15/18 at 17:30 Glucagon (Glucagen) 1 mg Q15M PRN IM DECREASED GLUCOSE; Start 04/15/18 at 17:30 Glucose (Glutose) 15 gm Q15M PRN BUCCAL DECREASED GLUCOSE; Start 04/15/18 at 17:30 Lorazepam (Ativan) 1 mg BID PRN PO ANXIETY Last administered on 04/18/18at 01:33; Admin Dose 1 MG; Start 04/15/18 at 23:00 Levalbuterol (Xopenex Neb) 1.25 mg Q4H RESP THERAPY HHN Last administered on 04/18/18at 13:58; Admin Dose 1.25 MG; Start 04/16/18 at 01:00 Ipratropium [place] (Atrovent 0.02% (Neb)) 0.5 mg Q4H RESP THERAPY HHN Last administered on 04/18/18at 13:58; Admin Dose 0.5 MG; Start 04/16/18 at 01:00 Acetaminophen/ Hydrocodone Bitart ([place] (5/325)) 1 tab Q8 PRN PO MODERATE PAIN LEVEL 4-6 Last administered on 04/18/18at 01:27; Admin Dose 1 TAB; Start 04/16/18 at 10:30 IV Flush (NS 10 ml) 10 ml PRN PRN IV IV PROTOCOL; Start 04/16/18 at 10:30 Metoprolol Succinate (Toprol Xl) 12.5 mg BID PO Last administered on 04/17/18at 09:47; Admin Dose 12.5 MG; Start 04/16/18 at 21:00 Insulin Glargine (Lantus) 38 units QHS SC Last administered on 04/17/18at 21:53; Admin Dose 38 UNITS; Start 04/16/18 at 21:30 Furosemide (Lasix) 40 mg BID DIURETICS IV Last administered on 04/18/18at 05:37; Admin Dose 40 MG; Start 04/17/18 at 18:00 Methylprednisolone Sodium Succinate (Solu-Medrol) 40 mg Q8 IV Last administered on 04/18/18at 13:51; Admin Dose 40 MG; Start 04/17/18 at 22:00 Hydromorphone HCl (Dilaudid) 0.5 mg Q6H PRN IV SEVERE PAIN LEVEL 7-10 Last administered on 04/18/18at 11:56; Admin Dose 0.5 MG; Start 04/17/18 at 15:00 Insulin Human NPH (Humulin N) 10 unit Q8 SC Last administered on 04/18/18 13:58; Admin Dose 10 UNIT; Start 04/17/18 at 22:00 Insulin Aspart (Novolog Insulin Pen) 10 unit WITH MEALS SC Last administered on 04/18/18at 12:20; Admin Dose 10 UNIT; Start 04/17/18 at 17:55 Diagnostic Test (Pha) (Accu-Chek) 1 ea 02 XX Last administered on 04/18/18at 02:00; Admin Dose 1 EA; Start 04/18/18 at 02:00 Insulin Aspart (Novolog Insulin Pen) NOVOLOG *MILD* ALGORITHM WITH MEALS BEDTIME SC Last administered on 04/18/18at 12:19; Admin Dose 5 UNIT; Start 04/17/18 at 17:55 Miscellaneous Information (*Order Clarification Bulletin) PHARMACY TO MIX ALL IVPB IN... Q96H XX ; Start 04/17/18 at 15:30 Pantoprazole (Protonix Tab) 40 mg DAILY@06 PO Last administered on 04/18/18at 05:36; Admin Dose 40 MG; Start 04/18/18 at 06:00 Ampicillin Sodium/ Sulbactam Sodium 100 ml @ 100 mls/hr Q6 IVPB Last administered on 04/18/18at 13:50; Admin Dose 100 MLS/HR; Start 04/18/18 at 12:30 MELANIA LAMBERT Apr 18, 2018 16:10
[2018-04-18] MEDS: LINAGLIPTIN 5 MG TABLET PO SCH (16:30)
--- NOTE | 2018-04-18 17:23 | RADRPT ---
Echocardiogram Report Patient Name: JEAN-CLAUDE SHAFFER Gender: Female Date: 1970 Study Date: 18-Apr-2018 Senior Wealth Advisor: Henri King RDCS Location: 6B Ref. Physician: HUE KERN Quality: Technically Difficult Study Procedures: Transthoracic echocardiogram with complete 2D, M-Mode, and doppler examination. Indications: r/o Vegetations. 2D/M Mode Doppler Measurement Value Normal Ranges Measurement Value Normal Ranges LVIDd 2D 6.0 3.5 - 5.6 cm AV Peak Rian 1.6 m/sec LVIDs 2D 5.3 2.1 - 4.1 cm AV Peak PG 10.0 mmHg FS 2D 12.2 % LVOT Peak Rian 0.7 m/sec LVPWd 2D 1.3 0.6 - 1.1 cm LVOT Peak PG 2.0 mmHg IVSd 2D 1.0 0.6 - 1.1 cm MV E Peak Rian 1.2 m/sec IVS/LVPW 2D 0.7 MV A Peak Rian 1.0 m/sec AoR Diam 2D 2.6 2.0 - 3.7 cm MV E/A 1.2 LA/Ao 2D 1 0 - 1 MV Decel Time 194 msec EDV 2D 214.0 cm3 MV E/A 1.2 ESV 2D 145.0 cm3 TR Peak Rian 2.5 m/sec LA Dimen 2D 3.3 2.3 - 4.0 cm TR Peak PG 24.0 mmHg RVSP 24.0 mmHg RA Pressure 3.0 Findings Left Ventricle: Normal left ventricular wall thickness. Moderate enlargement of left ventricle cavity. Severe global left ventricular systolic dysfunction. Ejection fraction is visually estimated at 25 %. Tissue Doppler/Mitral Doppler indices are within normal limits. Right Ventricle: Mild right ventricular systolic dysfunction. Mild enlargement of right ventricle. Left Atrium: The left atrium is normal in size. Right Atrium: The right atrium is normal in size. Mitral Valve: Normal appearance of the mitral valve. Mild mitral valve regurgitation. Aortic Valve: Normal appearance of the aortic valve. No aortic regurgitation. Tricuspid Valve: Normal appearance of the tricuspid valve. Estimated peak PA systolic pressure 27 mmHg. There is mild to moderate tricuspid regurgitation. Pulmonic Valve: Normal pulmonic valve appearance. No evidence of pulmonic regurgitation. Pericardium: Normal pericardium with no significant pericardial effusion. Aorta: Normal aortic root. IVC: Normal size and normal respiratory collapse consistent with normal right atrial pressure. Conclusions Normal left ventricular wall thickness. Moderate enlargement of left ventricle cavity. Severe global left ventricular systolic dysfunction. Ejection fraction is visually estimated at 25-30 %. Tissue Doppler/Mitral Doppler indices are within normal limits. Mild right ventricular systolic dysfunction.. Mild enlargement of right ventricle. Normal appearance of the mitral valve. Mild mitral valve regurgitation. Normal appearance of the tricuspid valve. Estimated peak PA systolic pressure 27 mmHg. There is mild to moderate tricuspid regurgitation. Normal pulmonic valve appearance. No evidence of pulmonic regurgitation. No definite vegetations noted on any of the well visualized valvular apparati. For ongoing clinical concern consider GILLIAN. Normal appearance of the aortic valve. No aortic regurgitation. Electronically Signed By: Dionte Hall 18-Apr-2018 17:22:33 -0800 Patient Name: JEAN-CLAUDE SHAFFER Study Date: 18-Apr-2018 [id number]
[2018-04-18] MEDS: ATORVASTATIN 10 MG TAB PO SCH (20:50)
[2018-04-18] MEDS: INSULIN GLARGINE [LANTus] (100 UNITS/ML) SYG SC SCH (21:03)
[2018-04-19] VITALS (16 sets, daily range): BP systolic 101–144; BP diastolic 52–90; PULSE 65–97; RESP 16–20
[2018-04-19] MEDS: LEVALBUTEROL (NEB) 1.25 MG/0.5 ML AMP HHN SCH ×6 (00:01→21:08)
[2018-04-19] MEDS: IPRATROPIUM (NEB) 0.5 MG/2.5 ML AMP HHN SCH ×6 (00:01→21:08)
[2018-04-19] MEDS: AMPICILLIN/SULB 3 GM/NS (PMX) 100 ML IVPB SCH ×4 (00:51→17:39)
[2018-04-19] MEDS: ACCU-CHEK XX SCH (02:43)
[2018-04-19] MEDS: METHYLPREDNISOLONE 40 MG INJ IV SCH ×3 (06:26→21:41)
[2018-04-19] MEDS: FUROSEMIDE 40 MG INJ IV SCH (06:27)
[2018-04-19] MEDS: PANTOPRAZOLE (EC) 40 MG TAB PO SCH (06:27)
[2018-04-19] MEDS: NPH, HUMAN INSULIN ISOPHANE 3ML VIAL SC SCH ×3 (06:35→21:53)
[2018-04-19] MEDS: HYDROmorphONE 0.5 MG/0.5 ML SYG IV PRN ×3 (06:37→18:40)
--- NOTE | 2018-04-19 07:33 | NUR ---
EOSS: Patient alert and oriented x4, no distress or discomfort noted. Patient tolerated bipap last night. Insulin given as needed. Patient had 10 beats of wide QRS complexes around 0445 this morning, MD Hall notified, awaiting response. All other needs anticipated and met. Will continue to monitor.
[2018-04-19] MEDS: INSULIN ASPART [NOVOLOG] 3 ML PEN SC SCH ×7 (07:55→21:53)
[2018-04-19] MEDS: METOPROLOL (XL) 25 MG TAB PO SCH ×2 (08:17→21:39)
[2018-04-19] MEDS: ASPIRIN (EC) 81 MG TAB PO SCH (08:17)
[2018-04-19] MEDS: LINAGLIPTIN 5 MG TABLET PO SCH (08:17)
[2018-04-19] MEDS: LISINOPRIL 5 MG TAB PO SCH (08:17)
[2018-04-19] MEDS: DIGOXIN 0.125 MG TAB PO SCH (12:25)
--- NOTE | 2018-04-19 13:52 | CONS ---
Date/Time of Note Date/Time of Note DATE: 04/19/18 TIME: 13:50 Assessment/Plan Assessment/Plan Hospital Course IMPRESSION: 1. Congestive heart failure exacerbation, systolic, acute on chronic.-neg trop x 3 2. Hypotension, borderline. 3. Tachycardia consistent with sinus tachycardia in the setting of likely decompensated congestive heart failure. 4. Chronic obstructive pulmonary disease exacerbation. 5. Possible pneumonia. 6. Diabetes mellitus. 7. abd pain/constipation Recc: -Tele -serial ecg's -Continue BB/ACEI as tolerated only -Continue lasix at further reduced dose and follow volume status clsoely -Continue abx's/steroids/bronchodilators -Continue asa/digoxin Result Diagram: 04/19/18 0558 04/19/18 0558 Results 24hrs Laboratory Tests Test 04/18/18 17:31 04/18/18 20:52 04/19/18 02:29 04/19/18 05:58 Bedside Glucose 348 H 333 H 228 H White Blood 19.1 #H Count Red Blood Count 4.57 Hemoglobin 13.4 Hematocrit 44.4 Mean Corpuscular 97.2 Volume Mean Corpuscular 29.3 Hemoglobin Mean Corpuscular 30.2 L Hemoglobin Bel[place] Red Cell 15.2 H Distribution Width Platelet Count 188 Mean Platelet 11.9 H Volume Immature 0.800 H Granulocytes % Neutrophils % 78.4 H Lymphocytes % 15.3 Monocytes % 5.0 Eosinophils % 0.2 Basophils % 0.3 Nucleated Red 0.0 Blood Cells % Immature 0.160 H Granulocytes # Neutrophils # 15.0 H Lymphocytes # 2.9 Monocytes # 1.0 H Eosinophils # 0.0 Basophils # 0.1 Nucleated Red 0.0 Blood Cells # Sodium Level 142 Potassium Level 3.8 Chloride Level 93 L Carbon Dioxide 42 *H Level Anion Gap 7 Blood Urea 29 H Nitrogen Creatinine 0.72 Est Glomerular > 60 Filtrat Rate mL/min Glucose Level 108 Calcium Level 9.2 Test 04/19/18 06:25 04/19/18 08:03 04/19/18 12:21 Bedside Glucose 104 120 71 Consultation Date/Type/Reason Admit Date/Time Apr 15, 2018 at 16:15 Initial Consult Date 04/16/18 Type of Consult cardiology Reason for Consultation CHF Requesting Provider: ALEKSANDRA SALCIDO MD Exam/Review of Systems Vital Signs Vitals Vital Signs Date Temp Pulse Resp B/P (MAP) Pulse Ox O2 O2 Flow FiO2 Time Delivery Rate 04/19/18 87 12:12 04/19/18 98.3 16 104/52 97 Nasal 11:26 (69) Cannula 04/19/18 3.0 08:53 04/19/18 30 05:31 Intake and Output 04/18/18 04/18/18 04/19/18 1414:59 22:59 06:59 IntakeIntake Total 1150 ml OutputOutput Total 800 ml 900 ml BalanceBalance 350 ml -900 ml Exam Review of Systems: CONSTITUTIONAL: No fevers, chills. PULMONARY: No sob CARDIOVASCULAR: No chest pain/palpitations GASTROINTESTINAL: No nausea/vomiting. GENITOURINARY: No hematuria/dysuria. MUSCULOSKELETAL: No myagias/arthalgias. PSYCHIATRIC: The patient denies depression. NEUROLOGIC: No weakness Constitutional: alert Psych: no complaints Head: normocephalic ENMT: mucosa pink and moist Neck: supple, jvd (9 cm water) Respiratory: diminished breath sounds Cardiovascular: regular rate and rhythm Gastrointestinal: soft, non-tender Musculoskeletal: muscle tone (normal) Extremities: edema (none) Neurological: other (No focal deficits) Medications Medications Current Medications IV Flush (NS 3 ml) 3 ml PER PROTOCOL IV ; Start 04/15/18 at 17:00 Ondansetron HCl (Zofran Inj) 4 mg Q6H PRN IV NAUSEA AND/OR VOMITING; Start at 17:00 Acetaminophen (Tylenol Tab) 650 mg Q6H PRN PO PAIN LEVEL 1-3 OR FEVER Last administered on 04/16/18at 03:28; Admin Dose 650 MG; Start 04/15/18 at 17:00 Docusate Sodium (Colace) 100 mg Q12H PRN PO CONSTIPATION Last administered on 04/17/18at 09:46; Admin Dose 100 MG; Start 04/15/18 at 17:00 Aspirin (Halfprin) 81 mg DAILY PO Last administered on 04/19/18at 08:17; Admin Dose 81 MG; Start 04/16/18 at 09:00 Atorvastatin Calcium (Lipitor) 10 mg QHS PO Last administered on 04/18/18at 20:50; Admin Dose 10 MG; Start 04/15/18 at 21:00 Digoxin (Digoxin) 0.125 mg DAILY@13 PO Last administered on 04/19/18at 12:25; Admin Dose 0.125 MG; Start 04/16/18 at 13:00 Lisinopril (Zestril) 2.5 mg DAILY PO Last administered on 04/19/18at 08:17; Admin Dose 2.5 MG; Start 04/16/18 at 09:00 Miscellaneous Information 1 ea NOTE XX ; Start 04/15/18 at 17:30 Glucose (Glutose) 15 gm Q15M PRN PO DECREASED GLUCOSE; Start 04/15/18 at 17:30 Glucose (Glutose) 22.5 gm Q15M PRN PO DECREASED GLUCOSE; Start 04/15/18 at 17:30 Dextrose (D50w Syringe) 25 ml Q15M PRN IV DECREASED GLUCOSE; Start 04/15/18 at 17:30 Dextrose (D50w Syringe) 50 ml Q15M PRN IV DECREASED GLUCOSE; Start 04/15/18 at 17:30 Glucagon (Glucagen) 1 mg Q15M PRN IM DECREASED GLUCOSE; Start 04/15/18 at 17:30 Glucose (Glutose) 15 gm Q15M PRN BUCCAL DECREASED GLUCOSE; Start 04/15/18 at 17:30 Lorazepam (Ativan) 1 mg BID PRN PO ANXIETY Last administered on 04/18/18at 21:18; Admin Dose 1 MG; Start 04/15/18 at 23:00 Levalbuterol (Xopenex Neb) 1.25 mg Q4H RESP THERAPY HHN Last administered on 04/19/18at 08:53; Admin Dose 1.25 MG; Start 04/16/18 at 01:00 Ipratropium [place] (Atrovent 0.02% (Neb)) 0.5 mg Q4H RESP THERAPY HHN Last administered on 04/19/18at 08:53; Admin Dose 0.5 MG; Start 04/16/18 at 01:00 Acetaminophen/ Hydrocodone Bitart ([place] (5/325)) 1 tab Q8 PRN PO MODERATE PAIN LEVEL 4-6 Last administered on 04/18/18at 01:27; Admin Dose 1 TAB; Start 04/16/18 at 10:30 IV Flush (NS 10 ml) 10 ml PRN PRN IV IV PROTOCOL; Start 04/16/18 at 10:30 Metoprolol Succinate (Toprol Xl) 12.5 mg BID PO Last administered on 04/19/18 08:17; Admin Dose 12.5 MG; Start 04/16/18 at 21:00 Insulin Glargine (Lantus) 38 units QHS SC Last administered on 04/18/18 21:03; Admin Dose 38 UNITS; Start 04/16/18 at 21:30 Furosemide (Lasix) 40 mg BID DIURETICS IV Last administered on 04/19/18 06:27; Admin Dose 40 MG; Start 04/17/18 at 18:00 Methylprednisolone Sodium Succinate (Solu-Medrol) 40 mg Q8 IV Last administered on 04/19/18 06:26; Admin Dose 40 MG; Start 04/17/18 at 22:00 Hydromorphone HCl (Dilaudid) 0.5 mg Q6H PRN IV SEVERE PAIN LEVEL 7-10 Last administered on 04/19/18 12:26; Admin Dose 0.5 MG; Start 04/17/18 at 15:00 Insulin Human NPH (Humulin N) 10 unit Q8 SC Last administered on 04/19/18 06:35; Admin Dose 10 UNIT; Start 04/17/18 at 22:00 Insulin Aspart (Novolog Insulin Pen) 10 unit WITH MEALS SC Last administered on 04/19/18 12:36; Admin Dose 10 UNIT; Start 04/17/18 at 17:55 Diagnostic Test (Pha) (Accu-Chek) 1 ea 02 XX Last administered on 04/19/18 02:43; Admin Dose 1 EA; Start 04/18/18 at 02:00 Insulin Aspart (Novolog Insulin Pen) NOVOLOG *MILD* ALGORITHM WITH MEALS BEDTIME SC Last administered on 04/18/18 21:03; Admin Dose 4 UNIT; Start 04/17/18 at 17:55 Miscellaneous Information (*Order Clarification Bulletin) PHARMACY TO MIX ALL IVPB IN... Q96H XX ; Start 04/17/18 at 15:30 Pantoprazole (Protonix Tab) 40 mg DAILY@06 PO Last administered on 04/19/18 06:27; Admin Dose 40 MG; Start 04/18/18 at 06:00 Ampicillin Sodium/ Sulbactam Sodium 100 ml @ 100 mls/hr Q6 IVPB Last administered on 12/30/18at 12:25; Admin Dose 100 MLS/HR; Start 04/18/18 at 12:30 Linagliptin (Tradjenta) 5 mg DAILY PO Last administered on 04/19/18at 08:17; Admin Dose 5 MG; Start 04/18/18 at 16:30 GAGAN GARCIA Apr 19, 2018 13:52
--- NOTE | 2018-04-19 14:18 | CONS ---
Date/Time of Note Date/Time of Note DATE: 04/19/18 TIME: 14:15 Consult Date/Type/Reason Admit Date/Time Apr 15, 2018 at 16:15 Initial Consult Date 04/16/18 Type of Consultation: Pulmonary ICU Requesting Provider: ALEKSANDRA SALCIDO MD Subjective No events overnight. No c/o. Objective Vital Signs Date Temp Pulse Resp B/P (MAP) Pulse Ox O2 O2 Flow FiO2 Time Delivery Rate 04/19/18 87 12:12 04/19/18 98.3 16 104/52 97 Nasal 11:26 (69) Cannula 04/19/18 3.0 08:53 04/19/18 30 05:31 Intake and Output 04/18/18 04/18/18 04/19/18 1515:00 23:00 07:00 IntakeIntake Total 1150 ml OutputOutput Total 800 ml 900 ml BalanceBalance 350 ml -900 ml Exam HEENT: Neck supple; no JVD; no LAD CVS: RRR, S1 and S2 CHEST: Bilateral rales and occ wheezing ABD: Soft, obese, NT, + BS EXT: No c/c; + edema Results/Medications Result Diagram: 04/19/18 0558 04/19/18 0558 Results 24 hrs Laboratory Tests Test 04/18/18 17:31 04/18/18 20:52 04/19/18 02:29 04/19/18 05:58 Bedside Glucose 348 H 333 H 228 H White Blood 19.1 #H Count Red Blood Count 4.57 Hemoglobin 13.4 Hematocrit 44.4 Mean Corpuscular 97.2 Volume Mean Corpuscular 29.3 Hemoglobin Mean Corpuscular 30.2 L Hemoglobin Bel[place] Red Cell 15.2 H Distribution Width Platelet Count 188 Mean Platelet 11.9 H Volume Immature 0.800 H Granulocytes % Neutrophils % 78.4 H Lymphocytes % 15.3 Monocytes % 5.0 Eosinophils % 0.2 Basophils % 0.3 Nucleated Red 0.0 Blood Cells % Immature 0.160 H Granulocytes # Neutrophils # 15.0 H Lymphocytes # 2.9 Monocytes # 1.0 H Eosinophils # 0.0 Basophils # 0.1 Nucleated Red 0.0 Blood Cells # Sodium Level 142 Potassium Level 3.8 Chloride Level 93 L Carbon Dioxide 42 *H Level Anion Gap 7 Blood Urea 29 H Nitrogen Creatinine 0.72 Est Glomerular > 60 Filtrat Rate mL/min Glucose Level 108 Calcium Level 9.2 Test 04/19/18 06:25 04/19/18 08:03 04/19/18 12:21 Bedside Glucose 104 120 71 Medications Current Medications IV Flush (NS 3 ml) 3 ml PER PROTOCOL IV ; Start 04/15/18 at 17:00 Ondansetron HCl (Zofran Inj) 4 mg Q6H PRN IV NAUSEA AND/OR VOMITING; Start 04/15/18 at 17:00 Acetaminophen (Tylenol Tab) 650 mg Q6H PRN PO PAIN LEVEL 1-3 OR FEVER Last administered on 04/16/18at 03:28; Admin Dose 650 MG; Start 04/15/18 at 17:00 Docusate Sodium (Colace) 100 mg Q12H PRN PO CONSTIPATION Last administered on 04/17/18at 09:46; Admin Dose 100 MG; Start 04/15/18 at 17:00 Aspirin (Halfprin) 81 mg DAILY PO Last administered on 04/19/18at 08:17; Admin Dose 81 MG; Start 04/16/18 at 09:00 Atorvastatin Calcium (Lipitor) 10 mg QHS PO Last administered on 04/18/18at 20:50; Admin Dose 10 MG; Start 04/15/18 at 21:00 Digoxin (Digoxin) 0.125 mg DAILY@13 PO Last administered on 04/19/18at 12:25; Admin Dose 0.125 MG; Start 04/16/18 at 13:00 Lisinopril (Zestril) 2.5 mg DAILY PO Last administered on 04/19/18at 08:17; Admin Dose 2.5 MG; Start 04/16/18 at 09:00 Miscellaneous Information 1 ea NOTE XX ; Start 04/15/18 at 17:30 Glucose (Glutose) 15 gm Q15M PRN PO DECREASED GLUCOSE; Start 04/15/18 at 17:30 Glucose (Glutose) 22.5 gm Q15M PRN PO DECREASED GLUCOSE; Start 04/15/18 at 17:30 Dextrose (D50w Syringe) 25 ml Q15M PRN IV DECREASED GLUCOSE; Start 04/15/18 at 17:30 Dextrose (D50w Syringe) 50 ml Q15M PRN IV DECREASED GLUCOSE; Start 04/15/18 at 17:30 Glucagon (Glucagen) 1 mg Q15M PRN IM DECREASED GLUCOSE; Start 04/15/18 at 17:30 Glucose (Glutose) 15 gm Q15M PRN BUCCAL DECREASED GLUCOSE; Start 04/15/18 at 17:30 Lorazepam (Ativan) 1 mg BID PRN PO ANXIETY Last administered on 04/18/18 21:18; Admin Dose 1 MG; Start 04/15/18 at 23:00 Levalbuterol (Xopenex Neb) 1.25 mg Q4H RESP THERAPY HHN Last administered on 04/19/18 08:53; Admin Dose 1.25 MG; Start 04/16/18 at 01:00 Ipratropium [place] (Atrovent 0.02% (Neb)) 0.5 mg Q4H RESP THERAPY HHN Last administered on 04/19/18 08:53; Admin Dose 0.5 MG; Start 04/16/18 at 01:00 Acetaminophen/ Hydrocodone Bitart ([place] (5/325)) 1 tab Q8 PRN PO MODERATE PAIN LEVEL 4-6 Last administered on 04/18/18 01:27; Admin Dose 1 TAB; Start 04/16/18 at 10:30 IV Flush (NS 10 ml) 10 ml PRN PRN IV IV PROTOCOL; Start 04/16/18 at 10:30 Metoprolol Succinate (Toprol Xl) 12.5 mg BID PO Last administered on 04/19/18 08:17; Admin Dose 12.5 MG; Start 04/16/18 at 21:00 Insulin Glargine (Lantus) 38 units QHS SC Last administered on 04/18/18 21:03; Admin Dose 38 UNITS; Start 04/16/18 at 21:30 Methylprednisolone Sodium Succinate (Solu-Medrol) 40 mg Q8 IV Last administered on 04/19/18 06:26; Admin Dose 40 MG; Start 04/17/18 at 22:00 Hydromorphone HCl (Dilaudid) 0.5 mg Q6H PRN IV SEVERE PAIN LEVEL 7-10 Last administered on 04/19/18 12:26; Admin Dose 0.5 MG; Start 04/17/18 at 15:00 Insulin Human NPH (Humulin N) 10 unit Q8 SC Last administered on 04/19/18 06:35; Admin Dose 10 UNIT; Start 04/17/18 at 22:00 Insulin Aspart (Novolog Insulin Pen) 10 unit WITH MEALS SC Last administered on 04/19/18at 12:36; Admin Dose 10 UNIT; Start 04/17/18 at 17:55 Diagnostic Test (Pha) (Accu-Chek) 1 ea 02 XX Last administered on 04/19/18at 02:43; Admin Dose 1 EA; Start 04/18/18 at 02:00 Insulin Aspart (Novolog Insulin Pen) NOVOLOG *MILD* ALGORITHM WITH MEALS BEDTIME SC Last administered on 04/18/18at 21:03; Admin Dose 4 UNIT; Start 04/17/18 at 17:55 Miscellaneous Information (*Order Clarification Bulletin) PHARMACY TO MIX ALL IVPB IN... Q96H XX ; Start 04/17/18 at 15:30 Pantoprazole (Protonix Tab) 40 mg DAILY@06 PO Last administered on 04/19/18at 06:27; Admin Dose 40 MG; Start 04/18/18 at 06:00 Ampicillin Sodium/ Sulbactam Sodium 100 ml @ 100 mls/hr Q6 IVPB Last administered on 04/19/18at 12:25; Admin Dose 100 MLS/HR; Start 04/18/18 at 12:30 Linagliptin (Tradjenta) 5 mg DAILY PO Last administered on 04/19/18at 08:17; Admin Dose 5 MG; Start 04/18/18 at 16:30 Furosemide (Lasix) 40 mg DAILY IV ; Start 04/20/18 at 09:00 Assessment/Plan Additional Assessment/Plan IMP: 1. Acute on chronic hypoxemic respiratory failure secondary to streptococcal pneumonia 2. Worsening hyperglycemia 3. Morbid obesity with chronic hypercapnia 4. Congestive cardiac failure with severe cardiomyopathy 5. Chronic atrial fibrillation RECS: 1. Continue bronchodilators 2. Antibiotics 3. Supplemental O2--titrate as tolerated 4. Nocturnal NIV 5. OOB to chair HUAN OWEN MD Apr 19, 2018 14:18
--- NOTE | 2018-04-19 18:04 | PN ---
Date/Time of Note Date/Time of Note DATE: 04/19/18 TIME: 18:02 Assessment/Plan VTE Prophylaxis Risk score (from Ns)>0 risk: 8 SCD applied (from [facility]): No SCD contraindicated: other Pharmacological prophylaxis: other Lines/Catheters IV Catheter Type (from [facility]): PICC Line Central line still needed: Yes Urinary Cath still in place: No Assessment/Plan Hospital Course 1. copd/sys chf 2. Shortness of breath likely secondary to congestive heart failure exacerbation. The patient has been noncompliant with her Lasix. The patient left AMA last time. The patient also has EF of 20% to 30%. 3. Acute on chronic systolic congestive heart failure. 4. Cardiomyopathy with EF of 25% to 30%. 5. Hypertension. 6. Atrial fibrillation on Eliquis. 6. History of cocaine use. 7. Morbidly obese. 8. Abdominal pain secondary to abdominal wall hernia. 9. Leukocytosis plan hhn diuretic Result Diagram: 04/19/18 0558 04/19/18 0558 Results 24hrs Laboratory Tests Test 04/18/18 20:52 04/19/18 02:29 04/19/18 05:58 04/19/18 06:25 Bedside Glucose 333 H 228 H 104 White Blood 19.1 #H Count Red Blood Count 4.57 Hemoglobin 13.4 Hematocrit 44.4 Mean Corpuscular 97.2 Volume Mean Corpuscular 29.3 Hemoglobin Mean Corpuscular 30.2 L Hemoglobin Bel[place] nt Red Cell 15.2 H Distribution Width Platelet Count 188 Mean Platelet 11.9 H Volume Immature 0.800 H Granulocytes % Neutrophils % 78.4 H Lymphocytes % 15.3 Monocytes % 5.0 Eosinophils % 0.2 Basophils % 0.3 Nucleated Red 0.0 Blood Cells % Immature 0.160 H Granulocytes # Neutrophils # 15.0 H Lymphocytes # 2.9 Monocytes # 1.0 H Eosinophils # 0.0 Basophils # 0.1 Nucleated Red 0.0 Blood Cells # Sodium Level 142 Potassium Level 3.8 Chloride Level 93 L Carbon Dioxide 42 *H Level Anion Gap 7 Blood Urea 29 H Nitrogen Creatinine 0.72 Est Glomerular > 60 Filtrat Rate mL/min Glucose Level 108 Calcium Level 9.2 Test 04/19/18 08:03 04/19/18 12:21 04/19/18 14:56 04/19/18 17:38 Bedside Glucose 120 71 159 123 Subjective 24 Hr Interval Summary Respiratory: shortness of breath (better) Cardiovascular: no complaints Exam/Review of Systems Vital Signs Vitals Vital Signs Date Temp Pulse Resp B/P (MAP) Pulse Ox O2 O2 Flow FiO2 Time Delivery Rate 04/19/18 84 18 99 Nasal 2.0 16:44 Cannula 04/19/18 97.7 101/57 15:33 (72) 04/19/18 30 05:31 Intake and Output 04/18/18 04/18/18 04/19/18 1515:00 23:00 07:00 IntakeIntake Total 1150 ml OutputOutput Total 800 ml 900 ml BalanceBalance 350 ml -900 ml Exam Neck: supple Respiratory: diminished breath sounds Cardiovascular: regular rate and rhythm Gastrointestinal: soft, nl liver, spleen, non-tender Extremities: No edema Medications Medications Current Medications IV Flush (NS 3 ml) 3 ml PER PROTOCOL IV ; Start 04/15/18 at 17:00 Ondansetron HCl (Zofran Inj) 4 mg Q6H PRN IV NAUSEA AND/OR VOMITING; Start 04/15/18 at 17:00 Acetaminophen (Tylenol Tab) 650 mg Q6H PRN PO PAIN LEVEL 1-3 OR FEVER Last administered on 04/16/18at 03:28; Admin Dose 650 MG; Start 04/15/18 at 17:00 Docusate Sodium (Colace) 100 mg Q12H PRN PO CONSTIPATION Last administered on 04/17/18at 09:46; Admin Dose 100 MG; Start 04/15/18 at 17:00 Aspirin (Halfprin) 81 mg DAILY PO Last administered on 04/19/18at 08:17; Admin Dose 81 MG; Start 04/16/18 at 09:00 Atorvastatin Calcium (Lipitor) 10 mg QHS PO Last administered on 04/18/18at 20:50; Admin Dose 10 MG; Start 04/15/18 at 21:00 Digoxin (Digoxin) 0.125 mg DAILY@13 PO Last administered on 04/19/18at 12:25; Admin Dose 0.125 MG; Start 04/16/18 at 13:00 Lisinopril (Zestril) 2.5 mg DAILY PO Last administered on 04/19/18at 08:17; Admin Dose 2.5 MG; Start 04/16/18 at 09:00 Miscellaneous Information 1 ea NOTE XX ; Start 04/15/18 at 17:30 Glucose (Glutose) 15 gm Q15M PRN PO DECREASED GLUCOSE; Start 04/15/18 at 17:30 Glucose (Glutose) 22.5 gm Q15M PRN PO DECREASED GLUCOSE; Start 04/15/18 at 17:30 Dextrose (D50w Syringe) 25 ml Q15M PRN IV DECREASED GLUCOSE; Start 04/15/18 at 17:30 Dextrose (D50w Syringe) 50 ml Q15M PRN IV DECREASED GLUCOSE; Start 04/15/18 at 17:30 Glucagon (Glucagen) 1 mg Q15M PRN IM DECREASED GLUCOSE; Start 04/15/18 at 17: 30 Glucose (Glutose) 15 gm Q15M PRN BUCCAL DECREASED GLUCOSE; Start 04/15/18 at 17:30 Lorazepam (Ativan) 1 mg BID PRN PO ANXIETY Last administered on 04/18/18at 21:18; Admin Dose 1 MG; Start 04/15/18 at 23:00 Levalbuterol (Xopenex Neb) 1.25 mg Q4H RESP THERAPY HHN Last administered on 04/19/18at 16:44; Admin Dose 1.25 MG; Start 04/16/18 at 01:00 Ipratropium [place] (Atrovent 0.02% (Neb)) 0.5 mg Q4H RESP THERAPY HHN Last administered on 04/19/18at 16:44; Admin Dose 0.5 MG; Start 04/16/18 at 01:00 Acetaminophen/ Hydrocodone Bitart ([place] (5/325)) 1 tab Q8 PRN PO MODERATE PAIN LEVEL 4-6 Last administered on 04/18/18at 01:27; Admin Dose 1 TAB; Start 04/16/18 at 10:30 IV Flush (NS 10 ml) 10 ml PRN PRN IV IV PROTOCOL; Start 04/16/18 at 10:30 Metoprolol Succinate (Toprol Xl) 12.5 mg BID PO Last administered on 04/19/18at 08:17; Admin Dose 12.5 MG; Start 04/16/18 at 21:00 Insulin Glargine (Lantus) 38 units QHS SC Last administered on 04/18/18at 21:03; Admin Dose 38 UNITS; Start 04/16/18 at 21:30 Methylprednisolone Sodium Succinate (Solu-Medrol) 40 mg Q8 IV Last administered on 04/19/18at 14:57; Admin Dose 40 MG; Start 04/17/18 at 22:00 Hydromorphone HCl (Dilaudid) 0.5 mg Q6H PRN IV SEVERE PAIN LEVEL 7-10 Last administered on 04/19/18 12:26; Admin Dose 0.5 MG; Start 04/17/18 at 15:00 Insulin Human NPH (Humulin N) 10 unit Q8 SC Last administered on 04/19/18 15: 03; Admin Dose 10 UNIT; Start 04/17/18 at 22:00 Insulin Aspart (Novolog Insulin Pen) 10 unit WITH MEALS SC Last administered on 04/19/18 17:44; Admin Dose 10 UNIT; Start 04/17/18 at 17:55 Diagnostic Test (Pha) (Accu-Chek) 1 ea 02 XX Last administered on 04/19/18 02:43; Admin Dose 1 EA; Start 04/18/18 at 02:00 Insulin Aspart (Novolog Insulin Pen) NOVOLOG *MILD* ALGORITHM WITH MEALS BEDTI ME SC Last administered on 04/18/18 21:03; Admin Dose 4 UNIT; Start 04/17/18 at 17:55 Miscellaneous Information (*Order Clarification Bulletin) PHARMACY TO MIX ALL IVPB IN... Q96H XX ; Start 04/17/18 at 15:30 Pantoprazole (Protonix Tab) 40 mg DAILY@06 PO Last administered on 04/19/18 06:27; Admin Dose 40 MG; Start 04/18/18 at 06:00 Ampicillin Sodium/ Sulbactam Sodium 100 ml @ 100 mls/hr Q6 IVPB Last administered on 04/19/18at 17:39; Admin Dose 100 MLS/HR; Start 04/18/18 at 12:30 Linagliptin (Tradjenta) 5 mg DAILY PO Last administered on 04/19/18at 08:17; Admin Dose 5 MG; Start 04/18/18 at 16:30 Furosemide (Lasix) 40 mg DAILY IV ; Start 04/20/18 at 09:00 Acetazolamide (Diamox) 250 mg BID PO ; Start 04/19/18 at 21:00 MITA HENAO MD Apr 19, 2018 18:04
--- NOTE | 2018-04-19 19:45 | CONS ---
Date/Time of Note Date/Time of Note DATE: 04/19/18 TIME: 19:41 Assessment/Plan Assessment/Plan Hospital Course ID PROGRESS NOTE CURRENT ABX: DAY # 4 => Unasyn + Levaquin s/p Cefepime 24H INTERVAL SUMMARY * Much improved -- feeling better still has wheezing & chest congestion -- A/A/O, very pleasant, polite * No fevers, VSS, WBC continues downtrend, without dyspnea on supplemental O2 * Nocturnal BIPAP * 04/16/18 CXR: Stable patchy opacities of the mid left lung and lower right lung, which may represent persistent multifocal pneumonia. Stable cardiomegaly and/or pericardial effusion. Stable mild pulmonary vascular congestion. * 04/15/18 CXR: 2. Oval-shaped 6 cm mass like opacity lateral to the left hilum, new from 2017. This may represent a lung mass or round pneumonia. MICRO * 04/15/18 (-) MRSA * 04/15/18 (-)Respiratory Cx * 04/15/18 (-)INfluenza A/B * 04/15/18 BCx (+) BLOOD CULTURE Final BCULT GRAM BOTTLE 1 Gram positive cocci in pairs and chains . seen on gram stain of the broth Organism 1 STREPTOCOCCUS PNEUMONIAE S.PNEUMO M.I.C. RX --------- --- CEFOTAXIME 0.016 S PENICILLIN 0.016 S VANCOMYCIN 1 S S.PNEUMO Zone Size RX --------- --- * CLINDAMYCIN S * ERYTHROMYCIN S PHYSICAL EXAMINATION: GENERAL: Afebrile, VSS, polite/pleasant affect HEENT: AT, NC, anicteric =unremarkable NECK: Supple, trach CHEST: Equal chest rise bilaterally = supplemental O2 HEART: Pulse RRR ABDOMEN: Soft / NT /Morbid obese EXTREMITIES: Warm, dry, SKIN: No rash, no diaphoresis ID ASSESSMENT 47 yo F w/super morbid obesity admit with: 1. Severe sepsis with acute hypoxemia 2. Strep pneumonia bacteremia due to bilateral PNA 3. Community-acquired pneumonia and possible strep as well 4. CHF exacerbation * Systolic congestive heart failure with ejection fraction of 25% to 30%. 5. Chronic atrial fibrillation 6. Adult-onset diabetes. 7. Hypertension. 8. Dyslipidemia. 9. Abdominal pain secondary to abdominal wall hernia. 10. Psychiatric disorder. (-)MRSA Nares ABX ALLERGIES: NKDA (Morphine) INVASIVES: Right upper extremity PICC line, [place] CURRENT ABX: DAY 4 => Unasyn + Levaquin s/p ID RECOMMENDATIONS/PLAN: 1. PCN is the ABX of choice with Streptococcal PNA/Bacteremia 2. She will need 7-8 days IV ABX coverage for bacteremia followed by 7 days PO to complete 14 days for bacteremia * Anticipate HH w/Ceftriaxone IV to complete 14 days vs Augmentin PO after she receives 7 days IV ABX . Result Diagram: 04/19/18 0558 04/19/18 0558 Results 24hrs Laboratory Tests Test 04/18/18 20:52 04/19/18 02:29 04/19/18 05:58 04/19/18 06:25 Bedside Glucose 333 H 228 H 104 White Blood 19.1 #H Count Red Blood Count 4.57 Hemoglobin 13.4 Hematocrit 44.4 Mean Corpuscular 97.2 Volume Mean Corpuscular 29.3 Hemoglobin Mean Corpuscular 30.2 L Hemoglobin [place] Red Cell 15.2 H Distribution Width Platelet Count 188 Mean Platelet 11.9 H Volume Immature 0.800 H Granulocytes % Neutrophils % 78.4 H Lymphocytes % 15.3 Monocytes % 5.0 Eosinophils % 0.2 Basophils % 0.3 Nucleated Red 0.0 Blood Cells % Immature 0.160 H Granulocytes # Neutrophils # 15.0 H Lymphocytes # 2.9 Monocytes # 1.0 H Eosinophils # 0.0 Basophils # 0.1 Nucleated Red 0.0 Blood Cells # Sodium Level 142 Potassium Level 3.8 Chloride Level 93 L Carbon Dioxide 42 *H Level Anion Gap 7 Blood Urea 29 H Nitrogen Creatinine 0.72 Est Glomerular > 60 Filtrat Rate mL/min Glucose Level 108 Calcium Level 9.2 Test 04/19/18 08:03 04/19/18 12:21 04/19/18 14:56 04/19/18 17:38 Bedside Glucose 120 71 159 123 Consultation Date/Type/Reason Admit Date/Time Apr 15, 2018 at 16:15 Initial Consult Date 04/16/18 Requesting Provider: ALEKSANDRA SALCIDO MD Exam/Review of Systems Vital Signs Vitals Vital Signs Date Temp Pulse Resp B/P (MAP) Pulse Ox O2 O2 Flow FiO2 Time Delivery Rate 04/19/18 84 18 99 Nasal 2.0 16:44 Cannula 04/19/18 97.7 101/57 15:33 (72) 04/19/18 30 05:31 Intake and Output 04/18/18 04/18/18 04/19/18 1515:00 23:00 07:00 IntakeIntake Total 1150 ml OutputOutput Total 800 ml 900 ml BalanceBalance 350 ml -900 ml Medications Medications Current Medications IV Flush (NS 3 ml) 3 ml PER PROTOCOL IV ; Start 04/15/18 at 17:00 Ondansetron HCl (Zofran Inj) 4 mg Q6H PRN IV NAUSEA AND/OR VOMITING; Start 04/15/18 at 17:00 Acetaminophen (Tylenol Tab) 650 mg Q6H PRN PO PAIN LEVEL 1-3 OR FEVER Last administered on 04/16/18at 03:28; Admin Dose 650 MG; Start 04/15/18 at 17:00 Docusate Sodium (Colace) 100 mg Q12H PRN PO CONSTIPATION Last administered on 04/17/18at 09:46; Admin Dose 100 MG; Start 04/15/18 at 17:00 Aspirin (Halfprin) 81 mg DAILY PO Last administered on 04/19/18at 08:17; Admin Dose 81 MG; Start 04/16/18 at 09:00 Atorvastatin Calcium (Lipitor) 10 mg QHS PO Last administered on 04/18/18at 20:50; Admin Dose 10 MG; Start 04/15/18 at 21:00 Digoxin (Digoxin) 0.125 mg DAILY@13 PO Last administered on 04/19/18at 12:25; Admin Dose 0.125 MG; Start 04/16/18 at 13:00 Lisinopril (Zestril) 2.5 mg DAILY PO Last administered on 04/19/18at 08:17; Admin Dose 2.5 MG; Start 04/16/18 at 09:00 Miscellaneous Information 1 ea NOTE XX ; Start 04/15/18 at 17:30 Glucose (Glutose) 15 gm Q15M PRN PO DECREASED GLUCOSE; Start 04/15/18 at 17:30 Glucose (Glutose) 22.5 gm Q15M PRN PO DECREASED GLUCOSE; Start 04/15/18 at 17:30 Dextrose (D50w Syringe) 25 ml Q15M PRN IV DECREASED GLUCOSE; Start 04/15/18 at 17:30 Dextrose (D50w Syringe) 50 ml Q15M PRN IV DECREASED GLUCOSE; Start 04/15/18 at 17:30 Glucagon (Glucagen) 1 mg Q15M PRN IM DECREASED GLUCOSE; Start 04/15/18 at 17:30 Glucose (Glutose) 15 gm Q15M PRN BUCCAL DECREASED GLUCOSE; Start 04/15/18 at 17:30 Lorazepam (Ativan) 1 mg BID PRN PO ANXIETY Last administered on 04/18/18 21:18; Admin Dose 1 MG; Start 04/15/18 at 23:00 Levalbuterol (Xopenex Neb) 1.25 mg Q4H RESP THERAPY HHN Last administered on 04/19/18 16:44; Admin Dose 1.25 MG; Start 04/16/18 at 01:00 Ipratropium [place] (Atrovent 0.02% (Neb)) 0.5 mg Q4H RESP THERAPY HHN Last administered on 04/19/18 16:44; Admin Dose 0.5 MG; Start 04/16/18 at 01:00 Acetaminophen/ Hydrocodone Bitart ([place] (5/325)) 1 tab Q8 PRN PO MODERATE PAIN LEVEL 4-6 Last administered on 04/18/18 01:27; Admin Dose 1 TAB; Start 04/16/18 at 10:30 IV Flush (NS 10 ml) 10 ml PRN PRN IV IV PROTOCOL; Start 04/16/18 at 10:30 Metoprolol Succinate (Toprol Xl) 12.5 mg BID PO Last administered on 04/19/18 08:17; Admin Dose 12.5 MG; Start 04/16/18 at 21:00 Insulin Glargine (Lantus) 38 units QHS SC Last administered on 04/18/18 21:03; Admin Dose 38 UNITS; Start 04/16/18 at 21:30 Methylprednisolone Sodium Succinate (Solu-Medrol) 40 mg Q8 IV Last administered on 04/19/18at 14:57; Admin Dose 40 MG; Start 04/17/18 at 22:00 Hydromorphone HCl (Dilaudid) 0.5 mg Q6H PRN IV SEVERE PAIN LEVEL 7-10 Last administered on 04/19/18 18:40; Admin Dose 0.5 MG; Start 04/17/18 at 15:00 Insulin Human NPH (Humulin N) 10 unit Q8 SC Last administered on 04/19/18at 15:03; Admin Dose 10 UNIT; Start 04/17/18 at 22:00 Insulin Aspart (Novolog Insulin Pen) 10 unit WITH MEALS SC Last administered on 04/19/18at 17:44; Admin Dose 10 UNIT; Start 04/17/18 at 17:55 Diagnostic Test (Pha) (Accu-Chek) 1 ea 02 XX Last administered on 04/19/18at 02:43; Admin Dose 1 EA; Start 04/18/18 at 02:00 Insulin Aspart (Novolog Insulin Pen) NOVOLOG *MILD* ALGORITHM WITH MEALS BEDTIME SC Last administered on 04/18/18 21:03; Admin Dose 4 UNIT; Start 04/17/18 at 17:55 Miscellaneous Information (*Order Clarification Bulletin) PHARMACY TO MIX ALL IVPB IN... Q96H XX ; Start 04/17/18 at 15:30 Pantoprazole (Protonix Tab) 40 mg DAILY@06 PO Last administered on 04/19/18at 06:27; Admin Dose 40 MG; Start 04/18/18 at 06:00 Ampicillin Sodium/ Sulbactam Sodium 100 ml @ 100 mls/hr Q6 IVPB Last administered on 04/19/18at 17:39; Admin Dose 100 MLS/HR; Start 04/18/18 at 12:30 Linagliptin (Tradjenta) 5 mg DAILY PO Last administered on 04/19/18at 08:17; Admin Dose 5 MG; Start 04/18/18 at 16:30 Furosemide (Lasix) 40 mg DAILY IV ; Start 04/20/18 at 09:00 Acetazolamide (Diamox) 250 mg BID PO ; Start 04/19/18 at 21:00 SON MCKENZIE NP Apr 19, 2018 19:45
[2018-04-19] MEDS: ACETAZOLAMIDE 250 MG TAB PO SCH (21:37)
[2018-04-19] MEDS: ATORVASTATIN 10 MG TAB PO SCH (21:38)
[2018-04-19] MEDS: HYDROCODONE/APAP (5/325) TAB PO PRN (21:39)
[2018-04-19] MEDS: INSULIN GLARGINE [LANTus] (100 UNITS/ML) SYG SC SCH (21:53)
[2018-04-20] VITALS (12 sets, daily range): BP systolic 96–148; BP diastolic 54–83; PULSE 60–98; RESP 2–20
[2018-04-20] MEDS: AMPICILLIN/SULB 3 GM/NS (PMX) 100 ML IVPB SCH ×4 (00:40→17:34)
[2018-04-20] MEDS: HYDROmorphONE 0.5 MG/0.5 ML SYG IV PRN ×4 (00:42→19:34)
[2018-04-20] MEDS: LEVALBUTEROL (NEB) 1.25 MG/0.5 ML AMP HHN SCH ×6 (00:50→20:39)
[2018-04-20] MEDS: IPRATROPIUM (NEB) 0.5 MG/2.5 ML AMP HHN SCH ×6 (00:50→20:39)
[2018-04-20] MEDS: ACCU-CHEK XX SCH (02:00)
--- NOTE | 2018-04-20 03:42 | NUR ---
Patient blood glucose 291 at start of shift. Insulins given as ordered and as needed. Patient aware and understanding of monitoring blood glucose and limiting snacks but is noncompliant and yelled "I don't care I'm hungry." Patient demanded practical nursing faculty and nurse for various snacks repeatedly throughout shift and was angry about available options. Patient blood glucose 360 at 0230, Dr. Durant called, awaiting to hear back.
[2018-04-20] MEDS: METHYLPREDNISOLONE 40 MG INJ IV SCH ×3 (06:11→20:53)
[2018-04-20] MEDS: PANTOPRAZOLE (EC) 40 MG TAB PO SCH (06:11)
[2018-04-20] MEDS: NPH, HUMAN INSULIN ISOPHANE 3ML VIAL SC SCH ×3 (06:25→20:54)
[2018-04-20] MEDS: INSULIN ASPART [NOVOLOG] 3 ML PEN SC SCH ×7 (08:17→20:54)
[2018-04-20] MEDS: LINAGLIPTIN 5 MG TABLET PO SCH (08:18)
[2018-04-20] MEDS: ACETAZOLAMIDE 250 MG TAB PO SCH ×2 (11:42→20:47)
[2018-04-20] MEDS: FUROSEMIDE 40 MG INJ IV SCH (11:44)
[2018-04-20] MEDS: ASPIRIN (EC) 81 MG TAB PO SCH (11:47)
[2018-04-20] MEDS: LISINOPRIL 5 MG TAB PO SCH (11:47)
[2018-04-20] MEDS: METOPROLOL (XL) 25 MG TAB PO SCH ×2 (11:47→20:48)
[2018-04-20] MEDS: HYDROCODONE/APAP (5/325) TAB PO PRN ×2 (11:48→23:32)
--- NOTE | 2018-04-20 12:03 | CONS ---
Date/Time of Note Date/Time of Note DATE: 04/20/18 TIME: 12:02 Consult Date/Type/Reason Admit Date/Time Apr 15, 2018 at 16:15 Initial Consult Date 04/16/18 Type of Consultation: Pulmonary ICU Requesting Provider: ALEKSANDRA SALCIDO MD Subjective Patient complaining of Salc[place] catheter. States she is Still having mild respiratory distress although somewhat improved. Objective Vital Signs Date Temp Pulse Resp B/P (MAP) Pulse Ox O2 O2 Flow FiO2 Time Delivery Rate 04/20/18 98.5 85 20 114/63 100 11:48 (80) 04/20/18 Nasal 3.0 07:20 Cannula 04/19/18 30 05:31 Intake and Output 04/19/18 04/19/18 04/20/18 1515:00 23:00 07:00 IntakeIntake Total 1280 ml OutputOutput Total 2100 ml BalanceBalance -820 ml Exam GENERAL: Morbidly obese lady comfortable at rest no acute distress. VITAL SIGNS: per chart NECK: Supple. No JVD or lymphadenopathy. CARDIAC EXAM: S1, S2. No added sounds or murmurs. CHEST: clear bilaterally, No added sounds, rales or wheezes ABDOMEN: Soft, nontender. No guarding or rebound. EXTREMITIES: No cyanosis, clubbing or edema. NEUROLOGIC: Generalized weakness. No focal deficits. Results/Medications Result Diagram: 04/19/18 0558 04/20/18 0544 Results 24 hrs Laboratory Tests Test 04/19/18 12:21 04/19/18 14:56 04/19/18 17:38 04/19/18 21:45 Bedside Glucose 71 159 123 250 H Test 04/20/18 00:22 04/20/18 02:14 04/20/18 05:44 04/20/18 06:19 Bedside Glucose 291 H 360 H 325 H Sodium Level 138 Potassium Level 4.7 Chloride Level 94 L Carbon Dioxide 35 H Level Anion Gap 9 Blood Urea 26 H Nitrogen Creatinine 0.69 Est Glomerular > 60 Filtrat Rate mL/min Glucose Level 305 #H Calcium Level 9.4 Test 04/20/18 08:10 04/20/18 11:41 Bedside Glucose 285 H 360 H Medications Current Medications IV Flush (NS 3 ml) 3 ml PER PROTOCOL IV ; Start 04/15/18 at 17:00 Ondansetron HCl (Zofran Inj) 4 mg Q6H PRN IV NAUSEA AND/OR VOMITING; Start 04/15/18 at 17:00 Acetaminophen (Tylenol Tab) 650 mg Q6H PRN PO PAIN LEVEL 1-3 OR FEVER Last administered on 04/16/18at 03:28; Admin Dose 650 MG; Start 04/15/18 at 17:00 Docusate Sodium (Colace) 100 mg Q12H PRN PO CONSTIPATION Last administered on 04/17/18at 09:46; Admin Dose 100 MG; Start 04/15/18 at 17:00 Aspirin (Halfprin) 81 mg DAILY PO Last administered on 04/19/18 08:17; Admin Dose 81 MG; Start 04/16/18 at 09:00 Atorvastatin Calcium (Lipitor) 10 mg QHS PO Last administered on 04/19/18at 21:38; Admin Dose 10 MG; Start 04/15/18 at 21:00 Digoxin (Digoxin) 0.125 mg DAILY@13 PO Last administered on 04/19/18at 12:25; Admin Dose 0.125 MG; Start 04/16/18 at 13:00 Lisinopril (Zestril) 2.5 mg DAILY PO Last administered on 04/19/18at 08:17; Admin Dose 2.5 MG; Start 04/16/18 at 09:00 Miscellaneous Information 1 ea NOTE XX ; Start 04/15/18 at 17:30 Glucose (Glutose) 15 gm Q15M PRN PO DECREASED GLUCOSE; Start 04/15/18 at 17:30 Glucose (Glutose) 22.5 gm Q15M PRN PO DECREASED GLUCOSE; Start 04/15/18 at 17:30 Dextrose (D50w Syringe) 25 ml Q15M PRN IV DECREASED GLUCOSE; Start 04/15/18 at 17:30 Dextrose (D50w Syringe) 50 ml Q15M PRN IV DECREASED GLUCOSE; Start 04/15/18 at 17:30 Glucagon (Glucagen) 1 mg Q15M PRN IM DECREASED GLUCOSE; Start 04/15/18 at 17:30 Glucose (Glutose) 15 gm Q15M PRN BUCCAL DECREASED GLUCOSE; Start 04/15/18 at 17:30 Lorazepam (Ativan) 1 mg BID PRN PO ANXIETY Last administered on 04/18/18at 21:18; Admin Dose 1 MG; Start 04/15/18 at 23:00 Levalbuterol (Xopenex Neb) 1.25 mg Q4H RESP THERAPY HHN Last administered on 04/20/18 04:00; Admin Dose 1.25 MG; Start 04/16/18 at 01:00 Ipratropium [place] (Atrovent 0.02% (Neb)) 0.5 mg Q4H RESP THERAPY HHN Last administered on 04/20/18 04:00; Admin Dose 0.5 MG; Start 04/16/18 at 01:00 Acetaminophen/ Hydrocodone Bitart ([place] (5/325)) 1 tab Q8 PRN PO MODERATE PAIN LEVEL 4-6 Last administered on 04/19/18 21:39; Admin Dose 1 TAB; Start 04/16/18 at 10:30 IV Flush (NS 10 ml) 10 ml PRN PRN IV IV PROTOCOL; Start 04/16/18 at 10:30 Metoprolol Succinate (Toprol Xl) 12.5 mg BID PO Last administered on 04/19/18 21:39; Admin Dose 12.5 MG; Start 04/16/18 at 21:00 Insulin Glargine (Lantus) 38 units QHS SC Last administered on 04/19/18 21:53; Admin Dose 38 UNITS; Start 04/16/18 at 21:30 Methylprednisolone Sodium Succinate (Solu-Medrol) 40 mg Q8 IV Last administered on 04/20/18 06:11; Admin Dose 40 MG; Start 04/17/18 at 22:00 Hydromorphone HCl (Dilaudid) 0.5 mg Q6H PRN IV SEVERE PAIN LEVEL 7-10 Last administered on 04/20/18 06:45; Admin Dose 0.5 MG; Start 04/17/18 at 15:00 Insulin Human NPH (Humulin N) 10 unit Q8 SC Last administered on 04/20/18 06:25; Admin Dose 10 UNIT; Start 04/17/18 at 22:00 Insulin Aspart (Novolog Insulin Pen) 10 unit WITH MEALS SC Last administered on 04/20/18 08:17; Admin Dose 10 UNIT; Start 04/17/18 at 17:55 Diagnostic Test (Pha) (Accu-Chek) 1 ea 02 XX Last administered on 12/31/18at 02:00; Admin Dose 1 EA; Start 04/18/18 at 02:00 Insulin Aspart (Novolog Insulin Pen) NOVOLOG *MILD* ALGORITHM WITH MEALS BEDTIME SC Last administered on 04/20/18at 08:17; Admin Dose 4 UNIT; Start 04/17/18 at 17:55 Miscellaneous Information (*Order Clarification Bulletin) PHARMACY TO MIX ALL IVPB IN... Q96H XX ; Start 04/17/18 at 15:30 Pantoprazole (Protonix Tab) 40 mg DAILY@06 PO Last administered on 04/20/18at 06:11; Admin Dose 40 MG; Start 04/18/18 at 06:00 Ampicillin Sodium/ Sulbactam Sodium 100 ml @ 100 mls/hr Q6 IVPB Last administered on 04/20/18at 06:12; Admin Dose 100 MLS/HR; Start 04/18/18 at 12:30 Linagliptin (Tradjenta) 5 mg DAILY PO Last administered on 04/20/18at 08:18; Admin Dose 5 MG; Start 04/18/18 at 16:30 Furosemide (Lasix) 40 mg DAILY IV ; Start 04/20/18 at 09:00 Acetazolamide (Diamox) 250 mg BID PO Last administered on 04/19/18at 21:37; Admin Dose 250 MG; Start 04/19/18 at 21:00 Assessment/Plan Chief Complaint/Hosp Course IMP: 1. Acute on chronic hypoxemic respiratory failure secondary to streptococcal pneumonia 2. Worsening hyperglycemia 3. Morbid obesity with chronic hypercapnia 4. Congestive cardiac failure with severe cardiomyopathy 5. Chronic atrial fibrillation RECS: 1. Continue bronchodilators 2. Antibiotics 3. Supplemental O2--titrate as tolerated 4. Nocturnal NIV 5. OOB to chair 6. DC [place] catheter SLOANE FRASER MD, [facility] Apr 20, 2018 12:03
--- NOTE | 2018-04-20 13:00 | CONS ---
Date/Time of Note Date/Time of Note DATE: 04/20/18 TIME: 12:56 Assessment/Plan Assessment/Plan Hospital Course ID PROGRESS NOTE CURRENT ABX: DAY # 5 => Unasyn + Levaquin s/p Cefepime 24H INTERVAL SUMMARY * A/A/O --- pleasant, coping well -- PLAN TODAY -- DC FC and increase mobility -- OOB-> Chair goal * No fevers, VSS, WBC continues downtrend, without dyspnea on supplemental O2 * Nocturnal BIPAP * 04/16/18 CXR: Stable patchy opacities of the mid left lung and lower right lung, which may represent persistent multifocal pneumonia. Stable cardiomegaly and/or pericardial effusion. Stable mild pulmonary vascular congestion. * 04/15/18 CXR: 2. Oval-shaped 6 cm mass like opacity lateral to the left hilum, new from 2017. This may represent a lung mass or round pneumonia. MICRO * 04/15/18 (-) MRSA * 04/15/18 (-)Respiratory Cx * 04/15/18 (-)INfluenza A/B * 04/15/18 BCx (+) BLOOD CULTURE Final BCULT GRAM BOTTLE 1 Gram positive cocci in pairs and chains . seen on gram stain of the broth Organism 1 STREPTOCOCCUS PNEUMONIAE S.PNEUMO M.I.C. RX --------- --- CEFOTAXIME 0.016 S PENICILLIN 0.016 S VANCOMYCIN 1 S S.PNEUMO Zone Size RX --------- --- * CLINDAMYCIN S * ERYTHROMYCIN S PHYSICAL EXAMINATION: GENERAL: Afebrile, VSS, polite/pleasant affect HEENT: AT, NC, anicteric =unremarkable NECK: Supple, trach CHEST: Equal chest rise bilaterally = supplemental O2 HEART: Pulse RRR ABDOMEN: Soft / NT /Morbid obese EXTREMITIES: Warm, dry, SKIN: No rash, no diaphoresis ID ASSESSMENT 47 yo F w/super morbid obesity admit with: 1. Severe sepsis with acute hypoxemia 2. Strep pneumonia bacteremia due to bilateral PNA 3. Community-acquired pneumonia and possible strep as well 4. CHF exacerbation * Systolic congestive heart failure with ejection fraction of 25% to 30%. 5. Chronic atrial fibrillation 6. Adult-onset diabetes. 7. Hypertension. 8. Dyslipidemia. 9. Abdominal pain secondary to abdominal wall hernia. 10. Psychiatric disorder. (-)MRSA Nares ABX ALLERGIES: NKDA (Morphine) INVASIVES: Right upper extremity PICC line, [place] CURRENT ABX: DAY #5 => Unasyn + Levaquin s/p ID RECOMMENDATIONS/PLAN: 1. PCN is the ABX of choice with Streptococcal PNA/Bacteremia 2. She will need 7-8 days IV ABX coverage for bacteremia followed by 7 days PO Augmentin to complete 14 days for bacteremia * Anticipate HH w/Ceftriaxone IV to complete 14 days vs Augmentin PO after she receives 7 days IV ABX 3. Very pleasant, coping well, expresses understanding, agreement, gratitude for all provider/nursing care -- PLAN TODAY -- DC FC and increase mobility -- OOB-> Chair goal . . Result Diagram: 04/19/18 0558 04/20/18 0544 Results 24hrs Laboratory Tests Test 04/19/18 14:56 04/19/18 17:38 04/19/18 21:45 04/20/18 00:22 Bedside Glucose 159 123 250 H 291 H Test 04/20/18 02:14 04/20/18 05:44 04/20/18 06:19 04/20/18 08:10 Bedside Glucose 360 H 325 H 285 H Sodium Level 138 Potassium Level 4.7 Chloride Level 94 L Carbon Dioxide 35 H Level Anion Gap 9 Blood Urea 26 H Nitrogen Creatinine 0.69 Est Glomerular > 60 Filtrat Rate mL/min Glucose Level 305 #H Calcium Level 9.4 Test 04/20/18 11:41 Bedside Glucose 360 H Consultation Date/Type/Reason Admit Date/Time Apr 15, 2018 at 16:15 Initial Consult Date 04/16/18 Requesting Provider: ALEKSANDRA SALCIDO MD Exam/Review of Systems Vital Signs Vitals Vital Signs Date Temp Pulse Resp B/P (MAP) Pulse Ox O2 O2 Flow FiO2 Time Delivery Rate 04/20/18 99 2.0 12:23 04/20/18 95 20 Nasal 12:19 Cannula 04/20/18 98.5 114/63 11:48 (80) 04/19/18 30 05:31 Intake and Output 04/19/18 04/19/18 04/20/18 1515:00 23:00 07:00 IntakeIntake Total 1280 ml OutputOutput Total 2100 ml BalanceBalance -820 ml Medications Medications Current Medications IV Flush (NS 3 ml) 3 ml PER PROTOCOL IV ; Start 04/15/18 at 17:00 Ondansetron HCl (Zofran Inj) 4 mg Q6H PRN IV NAUSEA AND/OR VOMITING; Start at 17:00 Acetaminophen (Tylenol Tab) 650 mg Q6H PRN PO PAIN LEVEL 1-3 OR FEVER Last administered on 04/16/18at 03:28; Admin Dose 650 MG; Start 04/15/18 at 17:00 Docusate Sodium (Colace) 100 mg Q12H PRN PO CONSTIPATION Last administered on 04/17/18at 09:46; Admin Dose 100 MG; Start 04/15/18 at 17:00 Aspirin (Halfprin) 81 mg DAILY PO Last administered on 04/20/18at 11:47; Admin Dose 81 MG; Start 04/16/18 at 09:00 Atorvastatin Calcium (Lipitor) 10 mg QHS PO Last administered on 04/19/18at 21:38; Admin Dose 10 MG; Start 04/15/18 at 21:00 Digoxin (Digoxin) 0.125 mg DAILY@13 PO Last administered on 04/19/18at 12:25; Admin Dose 0.125 MG; Start 04/16/18 at 13:00 Lisinopril (Zestril) 2.5 mg DAILY PO Last administered on 04/20/18at 11:47; Admin Dose 2.5 MG; Start 04/16/18 at 09:00 Miscellaneous Information 1 ea NOTE XX ; Start 04/15/18 at 17:30 Glucose (Glutose) 15 gm Q15M PRN PO DECREASED GLUCOSE; Start 04/15/18 at 17:30 Glucose (Glutose) 22.5 gm Q15M PRN PO DECREASED GLUCOSE; Start 04/15/18 at 17:30 Dextrose (D50w Syringe) 25 ml Q15M PRN IV DECREASED GLUCOSE; Start 04/15/18 at 17:30 Dextrose (D50w Syringe) 50 ml Q15M PRN IV DECREASED GLUCOSE; Start 04/15/18 at 17:30 Glucagon (Glucagen) 1 mg Q15M PRN IM DECREASED GLUCOSE; Start 04/15/18 at 17:30 Glucose (Glutose) 15 gm Q15M PRN BUCCAL DECREASED GLUCOSE; Start 04/15/18 at 17:30 Lorazepam (Ativan) 1 mg BID PRN PO ANXIETY Last administered on 04/18/18 21:18; Admin Dose 1 MG; Start 04/15/18 at 23:00 Levalbuterol (Xopenex Neb) 1.25 mg Q4H RESP THERAPY HHN Last administered on 04/20/18 12:19; Admin Dose 1.25 MG; Start 04/16/18 at 01:00 Ipratropium [place] (Atrovent 0.02% (Neb)) 0.5 mg Q4H RESP THERAPY HHN Last administered on 04/20/18 12:18; Admin Dose 0.5 MG; Start 04/16/18 at 01:00 Acetaminophen/ Hydrocodone Bitart ([place] (5/325)) 1 tab Q8 PRN PO MODERATE PAIN LEVEL 4-6 Last administered on 04/20/18 11:48; Admin Dose 1 TAB; Start 04/16/18 at 10:30 IV Flush (NS 10 ml) 10 ml PRN PRN IV IV PROTOCOL; Start 04/16/18 at 10:30 Metoprolol Succinate (Toprol Xl) 12.5 mg BID PO Last administered on 04/20/18 11:47; Admin Dose 12.5 MG; Start 04/16/18 at 21:00 Insulin Glargine (Lantus) 38 units QHS SC Last administered on 04/19/18 21:53; Admin Dose 38 UNITS; Start 04/16/18 at 21:30 Methylprednisolone Sodium Succinate (Solu-Medrol) 40 mg Q8 IV Last administered on 04/20/18 06:11; Admin Dose 40 MG; Start 04/17/18 at 22:00 Hydromorphone HCl (Dilaudid) 0.5 mg Q6H PRN IV SEVERE PAIN LEVEL 7-10 Last administered on 04/20/18 06:45; Admin Dose 0.5 MG; Start 04/17/18 at 15:00 Insulin Human NPH (Humulin N) 10 unit Q8 SC Last administered on 04/20/18 06:25; Admin Dose 10 UNIT; Start 04/17/18 at 22:00 Insulin Aspart (Novolog Insulin Pen) 10 unit WITH MEALS SC Last administered on 04/20/18 12:04; Admin Dose 10 UNIT; Start 04/17/18 at 17:55 Diagnostic Test (Pha) (Accu-Chek) 1 ea 02 XX Last administered on 04/20/18 02:00; Admin Dose 1 EA; Start 04/18/18 at 02:00 Insulin Aspart (Novolog Insulin Pen) NOVOLOG *MILD* ALGORITHM WITH MEALS BEDTIME SC Last administered on 04/20/18 12:04; Admin Dose 6 UNIT; Start 04/17/18 at 17:55 Miscellaneous Information (*Order Clarification Bulletin) PHARMACY TO MIX ALL IVPB IN... Q96H XX ; Start 04/17/18 at 15:30 Pantoprazole (Protonix Tab) 40 mg DAILY@06 PO Last administered on 04/20/18 06:11; Admin Dose 40 MG; Start 04/18/18 at 06:00 Ampicillin Sodium/ Sulbactam Sodium 100 ml @ 100 mls/hr Q6 IVPB Last administered on 04/20/18at 11:43; Admin Dose 100 MLS/HR; Start 04/18/18 at 12:30 Linagliptin (Tradjenta) 5 mg DAILY PO Last administered on 04/20/18at 08:18; Admin Dose 5 MG; Start 04/18/18 at 16:30 Furosemide (Lasix) 40 mg DAILY IV Last administered on 04/20/18at 11:44; Admin Dose 40 MG; Start 04/20/18 at 09:00 Acetazolamide (Diamox) 250 mg BID PO Last administered on 04/20/18at 11:42; Adm in Dose 250 MG; Start 04/19/18 at 21:00 SON MCKENZIE NP Apr 20, 2018 13:00
[2018-04-20] MEDS: DIGOXIN 0.125 MG TAB PO SCH (13:11)
--- NOTE | 2018-04-20 14:05 | NUR ---
Nutrition note: Pt POC glu levels continue to be elevated ([phone]) r/t rx solumedrol. Pt on 1500 carb controlled diet which is appropriate for pt but is very restricted given her BMI. Rec liberalizing to 1800 and adjusting insulin medication. Will add low carb snacks.
--- NOTE | 2018-04-20 14:37 | CONS ---
Date/Time of Note Date/Time of Note DATE: 04/20/18 TIME: 14:36 Assessment/Plan Assessment/Plan Hospital Course IMPRESSION: 1. Congestive heart failure exacerbation, systolic, acute on chronic.-neg trop x 3. improved volume status 2. Hypotension, borderline. 3. Tachycardia consistent with sinus tachycardia in the setting of likely decompensated congestive heart failure. 4. Chronic obstructive pulmonary disease exacerbation. 5. Possible pneumonia. 6. Diabetes mellitus. 7. abd pain/constipation Recc: -Tele -serial ecg's -Continue BB/ACEI as tolerated only -Continue lasix at further reduced doseand diamox started for contraction alkalosis and follow volume status closely -Continue abx's/steroids/bronchodilators -Continue asa/digoxin Result Diagram: 04/19/18 0558 04/20/18 0544 Results 24hrs Laboratory Tests Test 04/19/18 14:56 04/19/18 17:38 04/19/18 21:45 04/20/18 00:22 Bedside Glucose 159 123 250 H 291 H Test 04/20/18 02:14 04/20/18 05:44 04/20/18 06:19 04/20/18 08:10 Bedside Glucose 360 H 325 H 285 H Sodium Level 138 Potassium Level 4.7 Chloride Level 94 L Carbon Dioxide 35 H Level Anion Gap 9 Blood Urea 26 H Nitrogen Creatinine 0.69 Est Glomerular > 60 Filtrat Rate mL/min Glucose Level 305 #H Calcium Level 9.4 Test 04/20/18 11:41 04/20/18 13:12 Bedside Glucose 360 H 284 H Consultation Date/Type/Reason Admit Date/Time Apr 15, 2018 at 16:15 Initial Consult Date 04/16/18 Type of Consult cardiology Reason for Consultation CHF Requesting Provider: ALEKSANDRA SALCIDO MD Exam/Review of Systems Vital Signs Vitals Vital Signs Date Temp Pulse Resp B/P (MAP) Pulse Ox O2 O2 Flow FiO2 Time Delivery Rate 04/20/18 99 2.0 12:23 04/20/18 95 20 Nasal 12:19 Cannula 04/20/18 98.5 114/63 11:48 (80) 04/19/18 30 05:31 Intake and Output 04/19/18 04/19/18 04/20/18 1515:00 23:00 07:00 IntakeIntake Total 1280 ml OutputOutput Total 2100 ml BalanceBalance -820 ml Exam Review of Systems: CONSTITUTIONAL: No fevers, chills. PULMONARY: No sob CARDIOVASCULAR: No chest pain/palpitations GASTROINTESTINAL: No nausea/vomiting. GENITOURINARY: No hematuria/dysuria. MUSCULOSKELETAL: No myagias/arthalgias. PSYCHIATRIC: The patient denies depression. NEUROLOGIC: No weakness Constitutional: alert, oriented Psych: no complaints Head: normocephalic ENMT: mucosa pink and moist Neck: supple, jvd (9 cm water) Respiratory: diminished breath sounds (at bases/B) Cardiovascular: regular rate and rhythm Gastrointestinal: soft, non-tender Musculoskeletal: muscle tone (normal) Extremities: edema (none) Neurological: other (NO focal deficits) Medications Medications Current Medications IV Flush (NS 3 ml) 3 ml PER PROTOCOL IV ; Start 04/15/18 at 17:00 Ondansetron HCl (Zofran Inj) 4 mg Q6H PRN IV NAUSEA AND/OR VOMITING; Start 04/15/18 at 17:00 Acetaminophen (Tylenol Tab) 650 mg Q6H PRN PO PAIN LEVEL 1-3 OR FEVER Last administered on 04/16/18at 03:28; Admin Dose 650 MG; Start 04/15/18 at 17:00 Docusate Sodium (Colace) 100 mg Q12H PRN PO CONSTIPATION Last administered on 04/17/18at 09:46; Admin Dose 100 MG; Start 04/15/18 at 17:00 Aspirin (Halfprin) 81 mg DAILY PO Last administered on 04/20/18at 11:47; Admin Dose 81 MG; Start 04/16/18 at 09:00 Atorvastatin Calcium (Lipitor) 10 mg QHS PO Last administered on 04/19/18at 21:38; Admin Dose 10 MG; Start 04/15/18 at 21:00 Digoxin (Digoxin) 0.125 mg DAILY@13 PO Last administered on 04/20/18at 13:11; Admin Dose 0.125 MG; Start 04/16/18 at 13:00 Lisinopril (Zestril) 2.5 mg DAILY PO Last administered on 04/20/18 11:47; Admin Dose 2.5 MG; Start 04/16/18 at 09:00 Miscellaneous Information 1 ea NOTE XX ; Start 04/15/18 at 17:30 Glucose (Glutose) 15 gm Q15M PRN PO DECREASED GLUCOSE; Start 04/15/18 at 17:30 Glucose (Glutose) 22.5 gm Q15M PRN PO DECREASED GLUCOSE; Start 04/15/18 at 17:30 Dextrose (D50w Syringe) 25 ml Q15M PRN IV DECREASED GLUCOSE; Start 04/15/18 at 17:30 Dextrose (D50w Syringe) 50 ml Q15M PRN IV DECREASED GLUCOSE; Start 04/15/18 at 17:30 Glucagon (Glucagen) 1 mg Q15M PRN IM DECREASED GLUCOSE; Start 04/15/18 at 17:30 Glucose (Glutose) 15 gm Q15M PRN BUCCAL DECREASED GLUCOSE; Start 04/15/18 at 17:30 Lorazepam (Ativan) 1 mg BID PRN PO ANXIETY Last administered on 04/18/18at 21:18; Admin Dose 1 MG; Start 04/15/18 at 23:00 Levalbuterol (Xopenex Neb) 1.25 mg Q4H RESP THERAPY HHN Last administered on 04/20/18at 12:19; Admin Dose 1.25 MG; Start 04/16/18 at 01:00 Ipratropium [place] (Atrovent 0.02% (Neb)) 0.5 mg Q4H RESP THERAPY HHN Last administered on 04/20/18at 12:18; Admin Dose 0.5 MG; Start 04/16/18 at 01:00 Acetaminophen/ Hydrocodone Bitart ([place] (5/325)) 1 tab Q8 PRN PO MODERATE PAIN LEVEL 4-6 Last administered on 04/20/18at 11:48; Admin Dose 1 TAB; Start 04/16/18 at 10:30 IV Flush (NS 10 ml) 10 ml PRN PRN IV IV PROTOCOL; Start 04/16/18 at 10:30 Metoprolol Succinate (Toprol Xl) 12.5 mg BID PO Last administered on 04/20/18at 11:47; Admin Dose 12.5 MG; Start 04/16/18 at 21:00 Insulin Glargine (Lantus) 38 units QHS SC Last administered on 04/19/18at 21:53; Admin Dose 38 UNITS; Start 04/16/18 at 21:30 Methylprednisolone Sodium Succinate (Solu-Medrol) 40 mg Q8 IV Last administered on 04/20/18 13:13; Admin Dose 40 MG; Start 04/17/18 at 22:00 Hydromorphone HCl (Dilaudid) 0.5 mg Q6H PRN IV SEVERE PAIN LEVEL 7-10 Last administered on 04/20/18 13:13; Admin Dose 0.5 MG; Start 04/17/18 at 15:00 Insulin Human NPH (Humulin N) 10 unit Q8 SC Last administered on 04/20/18 13:23; Admin Dose 10 UNIT; Start 04/17/18 at 22:00 Insulin Aspart (Novolog Insulin Pen) 10 unit WITH MEALS SC Last administered on 04/20/18 12:04; Admin Dose 10 UNIT; Start 04/17/18 at 17:55 Diagnostic Test (Pha) (Accu-Chek) 1 ea 02 XX Last administered on 04/20/18 02:00; Admin Dose 1 EA; Start 04/18/18 at 02:00 Insulin Aspart (Novolog Insulin Pen) NOVOLOG *MILD* ALGORITHM WITH MEALS BEDTIME SC Last administered on 04/20/18 12:04; Admin Dose 6 UNIT; Start 04/17/18 at 17:55 Miscellaneous Information (*Order Clarification Bulletin) PHARMACY TO MIX ALL IVPB IN... Q96H XX ; Start 04/17/18 at 15:30 Pantoprazole (Protonix Tab) 40 mg DAILY@06 PO Last administered on 04/20/18 06:11; Admin Dose 40 MG; Start 04/18/18 at 06:00 Ampicillin Sodium/ Sulbactam Sodium 100 ml @ 100 mls/hr Q6 IVPB Last administered on 04/20/18 11:43; Admin Dose 100 MLS/HR; Start 04/18/18 at 12:30 Linagliptin (Tradjenta) 5 mg DAILY PO Last administered on 04/20/18 08:18; Admin Dose 5 MG; Start 04/18/18 at 16:30 Furosemide (Lasix) 40 mg DAILY IV Last administered on 04/20/18 11:44; Admin Dose 40 MG; Start 04/20/18 at 09:00 Acetazolamide (Diamox) 250 mg BID PO Last administered on 04/20/18 11:42; Admin Dose 250 MG; Start 12/30/18 at 21:00 GAGAN GARCIA Apr 20, 2018 14:37
--- NOTE | 2018-04-20 16:47 | PN ---
Date/Time of Note Date/Time of Note DATE: 04/20/18 TIME: 16:45 Assessment/Plan VTE Prophylaxis Risk score (from Ns)>0 risk: 8 SCD applied (from Ns): No SCD contraindicated: other Pharmacological prophylaxis: other Lines/Catheters IV Catheter Type (from Nrs): PICC Line Central line still needed: Yes Urinary Cath still in place: No Reason Cath still needed: other (indicate) Assessment/Plan Hospital Course 1. copd/sys chf 2. Shortness of breath likely secondary to congestive heart failure exacerbation. The patient has been noncompliant with her Lasix. The patient left AMA last time. The patient also has EF of 20% to 30%. 3. Acute on chronic systolic congestive heart failure. 4. Cardiomyopathy with EF of 25% to 30%. 5. Hypertension. 6. Atrial fibrillation on Eliquis. 6. History of cocaine use. 7. Morbidly obese. 8. Abdominal pain secondary to abdominal wall hernia. 9. Leukocytosis plan [facility] diuretic [facility] lantus Result Diagram: 04/19/18 0558 04/20/18 0544 Results 24hrs Laboratory Tests Test 04/19/18 17:38 04/19/18 21:45 04/20/18 00:22 04/20/18 02:14 Bedside Glucose 123 250 H 291 H 360 H Test 04/20/18 05:44 04/20/18 06:19 04/20/18 08:10 04/20/18 11:41 Sodium Level 138 Potassium Level 4.7 Chloride Level 94 L Carbon Dioxide 35 H Level Anion Gap 9 Blood Urea 26 H Nitrogen Creatinine 0.69 Est Glomerular > 60 Filtrat Rate mL/min Glucose Level 305 #H Calcium Level 9.4 Bedside Glucose 325 H 285 H 360 H Test 04/20/18 13:12 Bedside Glucose 284 H Subjective 24 Hr Interval Summary Respiratory: shortness of breath (better) Exam/Review of Systems Vital Signs Vitals Vital Signs Date Temp Pulse Resp B/P (MAP) Pulse Ox O2 O2 Flow FiO2 Time Delivery Rate 04/20/18 82 16:14 04/20/18 20 97 Nasal 2.0 16:10 Cannula 04/20/18 97.7 110/78 15:30 (89) 04/19/18 30 05:31 Intake and Output 04/19/18 04/19/18 04/20/18 1515:00 23:00 07:00 IntakeIntake Total 1280 ml OutputOutput Total 2100 ml BalanceBalance -820 ml Exam Neck: supple Respiratory: clear to auscultation Cardiovascular: regular rate and rhythm Gastrointestinal: soft Genitourinary - Female: nl external genitalia Extremities: normal pulses Medications Medications Current Medications IV Flush (NS 3 ml) 3 ml PER PROTOCOL IV ; Start 04/15/18 at 17:00 Ondansetron HCl (Zofran Inj) 4 mg Q6H PRN IV NAUSEA AND/OR VOMITING; Start 04/15/18 at 17:00 Acetaminophen (Tylenol Tab) 650 mg Q6H PRN PO PAIN LEVEL 1-3 OR FEVER Last administered on 04/16/18at 03:28; Admin Dose 650 MG; Start 04/15/18 at 17:00 Docusate Sodium (Colace) 100 mg Q12H PRN PO CONSTIPATION Last administered on 04/17/18at 09:46; Admin Dose 100 MG; Start 04/15/18 at 17:00 Aspirin (Halfprin) 81 mg DAILY PO Last administered on 04/20/18at 11:47; Admin Dose 81 MG; Start 04/16/18 at 09:00 Atorvastatin Calcium (Lipitor) 10 mg QHS PO Last administered on 04/19/18at 21:38; Admin Dose 10 MG; Start 04/15/18 at 21:00 Digoxin (Digoxin) 0.125 mg DAILY@13 PO Last administered on 04/20/18at 13:11; Admin Dose 0.125 MG; Start 04/16/18 at 13:00 Lisinopril (Zestril) 2.5 mg DAILY PO Last administered on 04/20/18at 11:47; Admin Dose 2.5 MG; Start 04/16/18 at 09:00 Miscellaneous Information 1 ea NOTE XX ; Start 04/15/18 at 17:30 Glucose (Glutose) 15 gm Q15M PRN PO DECREASED GLUCOSE; Start 04/15/18 at 17:30 Glucose (Glutose) 22.5 gm Q15M PRN PO DECREASED GLUCOSE; Start 04/15/18 at 17:30 Dextrose (D50w Syringe) 25 ml Q15M PRN IV DECREASED GLUCOSE; Start 04/15/18 at 17:30 Dextrose (D50w Syringe) 50 ml Q15M PRN IV DECREASED GLUCOSE; Start 04/15/18 at 17:30 Glucagon (Glucagen) 1 mg Q15M PRN IM DECREASED GLUCOSE; Start 04/15/18 at 17:30 Glucose (Glutose) 15 gm Q15M PRN BUCCAL DECREASED GLUCOSE; Start 04/15/18 at 17:30 Lorazepam (Ativan) 1 mg BID PRN PO ANXIETY Last administered on 04/18/18 21:18; Admin Dose 1 MG; Start 04/15/18 at 23:00 Levalbuterol (Xopenex Neb) 1.25 mg Q4H RESP THERAPY HHN Last administered on 04/20/18 16:09; Admin Dose 1.25 MG; Start 04/16/18 at 01:00 Ipratropium [place] (Atrovent 0.02% (Neb)) 0.5 mg Q4H RESP THERAPY HHN Last administered on 04/20/18 16:09; Admin Dose 0.5 MG; Start 04/16/18 at 01:00 Acetaminophen/ Hydrocodone Bitart ([place] (5/325)) 1 tab Q8 PRN PO MODERATE PAIN LEVEL 4-6 Last administered on 04/20/18 11:48; Admin Dose 1 TAB; Start 04/16/18 at 10:30 IV Flush (NS 10 ml) 10 ml PRN PRN IV IV PROTOCOL; Start 04/16/18 at 10:30 Metoprolol Succinate (Toprol Xl) 12.5 mg BID PO Last administered on 04/20/18at 11:47; Admin Dose 12.5 MG; Start 04/16/18 at 21:00 Insulin Glargine (Lantus) 38 units QHS SC Last administered on 04/19/18at 21:53; Admin Dose 38 UNITS; Start 04/16/18 at 21:30 Methylprednisolone Sodium Succinate (Solu-Medrol) 40 mg Q8 IV Last administered on 04/20/18at 13:13; Admin Dose 40 MG; Start 04/17/18 at 22:00 Hydromorphone HCl (Dilaudid) 0.5 mg Q6H PRN IV SEVERE PAIN LEVEL 7-10 Last administered on 04/20/18 13:13; Admin Dose 0.5 MG; Start 04/17/18 at 15:00 Insulin Human NPH (Humulin N) 10 unit Q8 SC Last administered on 04/20/18 13:23; Admin Dose 10 UNIT; Start 04/17/18 at 22:00 Insulin Aspart (Novolog Insulin Pen) 10 unit WITH MEALS SC Last administered on 04/20/18 12:04; Admin Dose 10 UNIT; Start 04/17/18 at 17:55 Diagnostic Test (Pha) (Accu-Chek) 1 ea 02 XX Last administered on 04/20/18 02:00; Admin Dose 1 EA; Start 04/18/18 at 02:00 Insulin Aspart (Novolog Insulin Pen) NOVOLOG *MILD* ALGORITHM WITH MEALS B EDTIME SC Last administered on 04/20/18 12:04; Admin Dose 6 UNIT; Start 04/17/18 at 17:55 Miscellaneous Information (*Order Clarification Bulletin) PHARMACY TO MIX ALL IVPB IN... Q96H XX ; Start 04/17/18 at 15:30 Pantoprazole (Protonix Tab) 40 mg DAILY@06 PO Last administered on 04/20/18 06:11; Admin Dose 40 MG; Start 04/18/18 at 06:00 Ampicillin Sodium/ Sulbactam Sodium 100 ml @ 100 mls/hr Q6 IVPB Last administered on 04/20/18 11:43; Admin Dose 100 MLS/HR; Start 04/18/18 at 12 :30 Linagliptin (Tradjenta) 5 mg DAILY PO Last administered on 04/20/18at 08:18; Admin Dose 5 MG; Start 04/18/18 at 16:30 Furosemide (Lasix) 40 mg DAILY IV Last administered on 04/20/18at 11:44; Admin Dose 40 MG; Start 04/20/18 at 09:00 Acetazolamide (Diamox) 250 mg BID PO Last administered on 04/20/18 11:42; Admin Dose 250 MG; Start 04/19/18 at 21:00 MITA HENAO MD Apr 20, 2018 16:47
[2018-04-20] MEDS: ACETAMINOPHEN 325 MG TAB PO PRN ×2 (17:34→18:33)
[2018-04-20] MEDS: LORAZEPAM 1 MG TAB PO PRN (17:36)
[2018-04-20] MEDS: ATORVASTATIN 10 MG TAB PO SCH (20:47)
[2018-04-20] MEDS: INSULIN GLARGINE [LANTus] (100 UNITS/ML) SYG SC SCH (21:07)
[2018-04-21] VITALS (11 sets, daily range): BP systolic 89–121; BP diastolic 52–69; PULSE 65–100; RESP 16–20
[2018-04-21] MEDS: LEVALBUTEROL (NEB) 1.25 MG/0.5 ML AMP HHN SCH ×6 (01:06→21:00)
[2018-04-21] MEDS: IPRATROPIUM (NEB) 0.5 MG/2.5 ML AMP HHN SCH ×6 (01:06→21:00)
[2018-04-21] MEDS: ACCU-CHEK XX SCH (01:15)
[2018-04-21] MEDS: AMPICILLIN/SULB 3 GM/NS (PMX) 100 ML IVPB SCH ×4 (01:15→17:37)
[2018-04-21] MEDS: HYDROmorphONE 0.5 MG/0.5 ML SYG IV PRN ×4 (01:23→21:52)
--- NOTE | 2018-04-21 01:31 | NUR ---
NOTES PT BLOOD SUGAR IS HIGH. AND SHE NONCOMPLIANT WITH THE FOOD. REFER HER BACK TO THE RN PLASTIC SURGERY.
--- NOTE | 2018-04-21 01:40 | NUR ---
BRENNA PT ATE FOOD FROM HOME PT BRING IT. INSTRUCTED ABOUT FOODS BUT SHE IS CLAIMING THAT SHE IS HUNGRY. DR HENAO CALLED ABOUT THE BLOOD SUGAR AND AWAITING FOR THE CALL BACK.
--- NOTE | 2018-04-21 04:11 | NUR ---
NOTES DR HENAO ANSWER FROM THE PREVIOUS PAGE MADE ORDER NOTED.
[2018-04-21] MEDS ORDERED: INSULIN ASPART [NOVOLOG] 3 ML PEN SC ONE (04:30)
[2018-04-21] MEDS: PANTOPRAZOLE (EC) 40 MG TAB PO SCH (05:58)
[2018-04-21] MEDS: METHYLPREDNISOLONE 40 MG INJ IV SCH (05:59)
[2018-04-21] MEDS: NPH, HUMAN INSULIN ISOPHANE 3ML VIAL SC SCH (06:03)
[2018-04-21] MEDS: INSULIN ASPART [NOVOLOG] 3 ML PEN SC SCH ×7 (08:05→21:09)
[2018-04-21] MEDS: ACETAZOLAMIDE 250 MG TAB PO SCH (08:38)
[2018-04-21] MEDS: METOPROLOL (XL) 25 MG TAB PO SCH ×2 (08:38→20:58)
[2018-04-21] MEDS: LISINOPRIL 5 MG TAB PO SCH (08:38)
[2018-04-21] MEDS: ASPIRIN (EC) 81 MG TAB PO SCH (08:38)
[2018-04-21] MEDS: FUROSEMIDE 40 MG INJ IV SCH (08:39)
[2018-04-21] MEDS: LINAGLIPTIN 5 MG TABLET PO SCH (08:39)
--- NOTE | 2018-04-21 11:45 | CONS ---
Date/Time of Note Date/Time of Note DATE: 04/21/18 TIME: 11:44 Consult Date/Type/Reason Admit Date/Time Apr 15, 2018 at 16:15 Initial Consult Date 04/16/18 Type of Consultation: Pulmonary ICU Requesting Provider: ALEKSANDRA SALCIDO MD Subjective No events, breathing better. Objective Vital Signs Date Temp Pulse Resp B/P (MAP) Pulse Ox O2 O2 Flow FiO2 Time Delivery Rate 04/21/18 97.5 83 18 120/69 94 Room Air 11:25 (86) 04/21/18 2.0 10:02 04/21/18 30 01:06 Intake and Output 04/20/18 04/20/18 04/21/18 1515:00 23:00 07:00 IntakeIntake Total 100 ml 1650 ml 100 ml OutputOutput Total 1300 ml BalanceBalance 100 ml 350 ml 100 ml Exam GENERAL: Morbidly obese lady comfortable at rest no acute distress. VITAL SIGNS: per chart NECK: Supple. No JVD or lymphadenopathy. CARDIAC EXAM: S1, S2. No added sounds or murmurs. CHEST: clear bilaterally, No added sounds, rales or wheezes ABDOMEN: Soft, nontender. No guarding or rebound. EXTREMITIES: No cyanosis, clubbing or edema. NEUROLOGIC: Generalized weakness. No focal deficits. Results/Medications Result Diagram: 04/21/18 0557 04/21/18 0557 Results 24 hrs Laboratory Tests Test 04/20/18 13:12 04/20/18 17:32 04/20/18 20:42 04/21/18 01:12 Bedside Glucose 284 H 231 H 240 H 411 *H Test 04/21/18 05:56 04/21/18 05:57 04/21/18 08:02 Bedside Glucose 365 H 283 H White Blood Count 22.5 H Red Blood Count 4.32 Hemoglobin 12.8 Hematocrit 40.9 Mean Corpuscular 94.7 Volume Mean Corpuscular 29.6 Hemoglobin Mean Corpuscular 31.3 L Hemoglobin Concent Red Cell 14.7 H Distribution Width Platelet Count 196 Mean Platelet 11.5 H Volume Immature 1.200 H Granulocytes % Neutrophils % 86.1 H Lymphocytes % 8.3 L Monocytes % 4.0 Eosinophils % 0.1 Basophils % 0.3 Nucleated Red 0.0 Blood Cells % Immature 0.280 H Granulocytes # Neutrophils # 19.4 H Lymphocytes # 1.9 Monocytes # 0.9 Eosinophils # 0.0 Basophils # 0.1 Nucleated Red 0.0 Blood Cells # Sodium Level 136 Potassium Level 4.7 Chloride Level 97 Carbon Dioxide 30 Level Anion Gap 9 Blood Urea 31 H Nitrogen Creatinine 0.90 Est Glomerular > 60 Filtrat Rate mL/min Glucose Level 397 H Calcium Level 9.3 Phosphorus Level 4.4 Magnesium Level 1.9 Medications Current Medications IV Flush (NS 3 ml) 3 ml PER PROTOCOL IV ; Start 04/15/18 at 17:00 Ondansetron HCl (Zofran Inj) 4 mg Q6H PRN IV NAUSEA AND/OR VOMITING; Start 04/15/18 at 17:00 Acetaminophen (Tylenol Tab) 650 mg Q6H PRN PO PAIN LEVEL 1-3 OR FEVER Last administered on 04/20/18at 17:34; Admin Dose 650 MG; Start 04/15/18 at 17:00 Docusate Sodium (Colace) 100 mg Q12H PRN PO CONSTIPATION Last administered on 04/17/18at 09:46; Admin Dose 100 MG; Start 04/15/18 at 17:00 Aspirin (Halfprin) 81 mg DAILY PO Last administered on 04/21/18at 08:38; Admin Dose 81 MG; Start 04/16/18 at 09:00 Atorvastatin Calcium (Lipitor) 10 mg QHS PO Last administered on 04/20/18at 20:47; Admin Dose 10 MG; Start 04/15/18 at 21:00 Digoxin (Digoxin) 0.125 mg DAILY@13 PO Last administered on 04/20/18at 13:11; Admin Dose 0.125 MG; Start 04/16/18 at 13:00 Lisinopril (Zestril) 2.5 mg DAILY PO Last administered on 04/21/18at 08:38; Admin Dose 2.5 MG; Start 04/16/18 at 09:00 Miscellaneous Information 1 ea NOTE XX ; Start 04/15/18 at 17:30 Glucose (Glutose) 15 gm Q15M PRN PO DECREASED GLUCOSE; Start 04/15/18 at 17:30 Glucose (Glutose) 22.5 gm Q15M PRN PO DECREASED GLUCOSE; Start 04/15/18 at 17:30 Dextrose (D50w Syringe) 25 ml Q15M PRN IV DECREASED GLUCOSE; Start 04/15/18 at 17:30 Dextrose (D50w Syringe) 50 ml Q15M PRN IV DECREASED GLUCOSE; Start 04/15/18 at 17:30 Glucagon (Glucagen) 1 mg Q15M PRN IM DECREASED GLUCOSE; Start 04/15/18 at 17:30 Glucose (Glutose) 15 gm Q15M PRN BUCCAL DECREASED GLUCOSE; Start 04/15/18 at 17:30 Lorazepam (Ativan) 1 mg BID PRN PO ANXIETY Last administered on 04/20/18 17:36; Admin Dose 1 MG; Start 04/15/18 at 23:00 Levalbuterol (Xopenex Neb) 1.25 mg Q4H RESP THERAPY HHN Last administered on 04/21/18 09:55; Admin Dose 1.25 MG; Start 04/16/18 at 01:00 Ipratropium [place] (Atrovent 0.02% (Neb)) 0.5 mg Q4H RESP THERAPY HHN Last administered on 04/21/18 09:55; Admin Dose 0.5 MG; Start 04/16/18 at 01:00 Acetaminophen/ Hydrocodone Bitart ([place] (5/325)) 1 tab Q8 PRN PO MODERATE PAIN LEVEL 4-6 Last administered on 04/20/18 23:32; Admin Dose 1 TAB; Start 04/16/18 at 10:30 IV Flush (NS 10 ml) 10 ml PRN PRN IV IV PROTOCOL; Start 04/16/18 at 10:30 Metoprolol Succinate (Toprol Xl) 12.5 mg BID PO Last administered on 04/21/18 08:38; Admin Dose 12.5 MG; Start 04/16/18 at 21:00 Methylprednisolone Sodium Succinate (Solu-Medrol) 40 mg Q8 IV Last administered on 04/21/18 05:59; Admin Dose 40 MG; Start 04/17/18 at 22:00 Hydromorphone HCl (Dilaudid) 0.5 mg Q6H PRN IV SEVERE PAIN LEVEL 7-10 Last administered on 04/21/18 08:07; Admin Dose 0.5 MG; Start 04/17/18 at 15:00 Insulin Human NPH (Humulin N) 10 unit Q8 SC Last administered on 04/21/18 06:03; Admin Dose 10 UNIT; Start 04/17/18 at 22:00 Insulin Aspart (Novolog Insulin Pen) 10 unit WITH MEALS SC Last administered on 04/21/18 08:05; Admin Dose 10 UNIT; Start 04/17/18 at 17:55 Diagnostic Test (Pha) (Accu-Chek) 1 ea 02 XX Last administered on 04/21/18 01:15; Admin Dose 1 EA; Start 04/18/18 at 02:00 Insulin Aspart (Novolog Insulin Pen) NOVOLOG *MILD* ALGORITHM WITH MEALS BEDTIME SC Last administered on 04/21/18 08:12; Admin Dose 4 UNIT; Start 04/17/18 at 17:55 Miscellaneous Information (*Order Clarification Bulletin) PHARMACY TO MIX ALL IVPB IN... Q96H XX ; Start 04/17/18 at 15:30 Pantoprazole (Protonix Tab) 40 mg DAILY@06 PO Last administered on 04/21/18 05:58; Admin Dose 40 MG; Start 04/18/18 at 06:00 Ampicillin Sodium/ Sulbactam Sodium 100 ml @ 100 mls/hr Q6 IVPB Last administered on 04/21/18 05:58; Admin Dose 100 MLS/HR; Start 04/18/18 at 12:30 Linagliptin (Tradjenta) 5 mg DAILY PO Last administered on 04/21/18 08:39; Admin Dose 5 MG; Start 04/18/18 at 16:30 Furosemide (Lasix) 40 mg DAILY IV Last administered on 04/21/18 08:39; Admin Dose 40 MG; Start 04/20/18 at 09:00 Acetazolamide (Diamox) 250 mg BID PO Last administered on 04/21/18 08:38; Admin Dose 250 MG; Start 04/19/18 at 21:00 Insulin Glargine (Lantus) 42 units QHS SC Last administered on 04/20/18at 21:0 7; Admin Dose 42 UNITS; Start 04/20/18 at 21:00 Assessment/Plan Chief Complaint/Hosp Course IMP: 1. Acute on chronic hypoxemic respiratory failure secondary to streptococcal pneumonia 2. Worsening hyperglycemia 3. Morbid obesity with chronic hypercapnia 4. Congestive cardiac failure with severe cardiomyopathy 5. Chronic atrial fibrillation RECS: 1. Continue bronchodilators 2. Antibiotics 3. Supplemental O2--titrate as tolerated 4. Nocturnal NIV decrease steroids. 5. OOB to chair dc tomorrow ok from pulm standpoint. SLOANE FRASER MD, [facility] Apr 21, 2018 11:45
[2018-04-21] MEDS: LORAZEPAM 1 MG TAB PO PRN (12:05)
[2018-04-21] MEDS: DIGOXIN 0.125 MG TAB PO SCH (12:05)
[2018-04-21] MEDS: HYDROCODONE/APAP (5/325) TAB PO PRN (12:06)
--- NOTE | 2018-04-21 14:12 | CONS ---
Date/Time of Note Date/Time of Note DATE: 04/21/18 TIME: 14:11 Assessment/Plan Assessment/Plan Hospital Course IMPRESSION: 1. Congestive heart failure exacerbation, systolic, acute on chronic.-neg trop x 3. improved volume status 2. Hypotension, borderline. 3. Tachycardia consistent with sinus tachycardia in the setting of likely decompensated congestive heart failure. 4. Chronic obstructive pulmonary disease exacerbation. 5. Possible pneumonia. 6. Diabetes mellitus. 7. abd pain/constipation Recc: -Tele -serial ecg's -Continue BB/ACEI as tolerated only -Continue lasix at further reduced doseand diamox started for contraction alkalosis and follow volume status closely -Continue abx's/steroids/bronchodilators -Continue asa/digoxin Result Diagram: 04/21/18 0557 04/21/18 0557 Results 24hrs Laboratory Tests Test 04/20/18 17:32 04/20/18 20:42 04/21/18 01:12 04/21/18 05:56 Bedside Glucose 231 H 240 H 411 *H 365 H Test 04/21/18 05:57 04/21/18 08:02 04/21/18 12:19 White Blood Count 22.5 H Red Blood Count 4.32 Hemoglobin 12.8 Hematocrit 40.9 Mean Corpuscular 94.7 Volume Mean Corpuscular 29.6 Hemoglobin Mean Corpuscular 31.3 L Hemoglobin Concent Red Cell 14.7 H Distribution Width Platelet Count 196 Mean Platelet Volume 11.5 H Immature 1.200 H Granulocytes % Neutrophils % 86.1 H Lymphocytes % 8.3 L Monocytes % 4.0 Eosinophils % 0.1 Basophils % 0.3 Nucleated Red Blood 0.0 Cells % Immature 0.280 H Granulocytes # Neutrophils # 19.4 H Lymphocytes # 1.9 Monocytes # 0.9 Eosinophils # 0.0 Basophils # 0.1 Nucleated Red Blood 0.0 Cells # Sodium Level 136 Potassium Level 4.7 Chloride Level 97 Carbon Dioxide Level 30 Anion Gap 9 Blood Urea Nitrogen 31 H Creatinine 0.90 Est Glomerular > 60 Filtrat Rate mL/min Glucose Level 397 H Calcium Level 9.3 Phosphorus Level 4.4 Magnesium Level 1.9 Bedside Glucose 283 H 350 H Consultation Date/Type/Reason Admit Date/Time Apr 15, 2018 at 16:15 Initial Consult Date 04/16/18 Type of Consult cardiology Reason for Consultation CHF Requesting Provider: ALEKSANDRA SALCIDO MD Exam/Review of Systems Vital Signs Vitals Vital Signs Date Temp Pulse Resp B/P (MAP) Pulse Ox O2 O2 Flow FiO2 Time Delivery Rate 04/21/18 65 16 94 21 13:32 04/21/18 97.5 120/69 Room Air 11:25 (86) 04/21/18 2.0 10:02 Intake and Output 04/20/18 04/20/18 04/21/18 1515:00 23:00 07:00 IntakeIntake Total 100 ml 1650 ml 100 ml OutputOutput Total 1300 ml BalanceBalance 100 ml 350 ml 100 ml Exam Review of Systems: CONSTITUTIONAL: No fevers, chills. PULMONARY: No sob CARDIOVASCULAR: No chest pain/palpitations GASTROINTESTINAL: No nausea/vomiting. GENITOURINARY: No hematuria/dysuria. MUSCULOSKELETAL: No myagias/arthalgias. PSYCHIATRIC: The patient denies depression. NEUROLOGIC: No weakness Constitutional: alert Psych: no complaints Head: normocephalic ENMT: mucosa pink and moist Neck: supple, jvd (9 cm water) Respiratory: clear to auscultation Cardiovascular: regular rate and rhythm Gastrointestinal: soft, non-tender Musculoskeletal: muscle tone (normal) Extremities: edema (none) Neurological: other (NO focal deficits) Medications Medications Current Medications IV Flush (NS 3 ml) 3 ml PER PROTOCOL IV ; Start 04/15/18 at 17:00 Ondansetron HCl (Zofran Inj) 4 mg Q6H PRN IV NAUSEA AND/OR VOMITING; Start 04/15/18 at 17:00 Acetaminophen (Tylenol Tab) 650 mg Q6H PRN PO PAIN LEVEL 1-3 OR FEVER Last administered on 04/20/18at 17:34; Admin Dose 650 MG; Start 04/15/18 at 17:00 Docusate Sodium (Colace) 100 mg Q12H PRN PO CONSTIPATION Last administered on 04/17/18at 09:46; Admin Dose 100 MG; Start 04/15/18 at 17:00 Aspirin (Halfprin) 81 mg DAILY PO Last administered on 04/21/18at 08:38; Admin Dose 81 MG; Start 04/16/18 at 09:00 Atorvastatin Calcium (Lipitor) 10 mg QHS PO Last administered on 04/20/18at 20:47; Admin Dose 10 MG; Start 04/15/18 at 21:00 Digoxin (Digoxin) 0.125 mg DAILY@13 PO Last administered on 04/21/18 12:05; Admin Dose 0.125 MG; Start 04/16/18 at 13:00 Lisinopril (Zestril) 2.5 mg DAILY PO Last administered on 04/21/18 08:38; Admin Dose 2.5 MG; Start 04/16/18 at 09:00 Miscellaneous Information 1 ea NOTE XX ; Start 04/15/18 at 17:30 Glucose (Glutose) 15 gm Q15M PRN PO DECREASED GLUCOSE; Start 04/15/18 at 17:30 Glucose (Glutose) 22.5 gm Q15M PRN PO DECREASED GLUCOSE; Start 04/15/18 at 17: 30 Dextrose (D50w Syringe) 25 ml Q15M PRN IV DECREASED GLUCOSE; Start 04/15/18 at 17:30 Dextrose (D50w Syringe) 50 ml Q15M PRN IV DECREASED GLUCOSE; Start 04/15/18 at 17:30 Glucagon (Glucagen) 1 mg Q15M PRN IM DECREASED GLUCOSE; Start 04/15/18 at 17:30 Glucose (Glutose) 15 gm Q15M PRN BUCCAL DECREASED GLUCOSE; Start 04/15/18 at 17:30 Lorazepam (Ativan) 1 mg BID PRN PO ANXIETY Last administered on 04/21/18 12:05; Admin Dose 1 MG; Start 04/15/18 at 23:00 Levalbuterol (Xopenex Neb) 1.25 mg Q4H RESP THERAPY HHN Last administered on 04/21/18 13:26; Admin Dose 1.25 MG; Start 04/16/18 at 01:00 Ipratropium [place] (Atrovent 0.02% (Neb)) 0.5 mg Q4H RESP THERAPY HHN Last administered on 04/21/18 13:26; Admin Dose 0.5 MG; Start 04/16/18 at 01:00 Acetaminophen/ Hydrocodone Bitart ([place] (5/325)) 1 tab Q8 PRN PO MODERATE PAIN LEVEL 4-6 Last administered on 04/21/18 12:06; Admin Dose 1 TAB; Start 04/16/18 at 10:30 IV Flush (NS 10 ml) 10 ml PRN PRN IV IV PROTOCOL; Start 04/16/18 at 10:30 Metoprolol Succinate (Toprol Xl) 12.5 mg BID PO Last administered on 04/21/18 08:38; Admin Dose 12.5 MG; Start 04/16/18 at 21:00 Hydromorphone HCl (Dilaudid) 0.5 mg Q6H PRN IV SEVERE PAIN LEVEL 7-10 Last administered on 04/21/18 13:40; Admin Dose 0.5 MG; Start 04/17/18 at 15:00 Insulin Aspart (Novolog Insulin Pen) 10 unit WITH MEALS SC Last administered on 04/21/18 13:26; Admin Dose 10 UNIT; Start 04/17/18 at 17:55 Diagnostic Test (Pha) (Accu-Chek) 1 ea 02 XX Last administered on 04/21/18 01:15; Admin Dose 1 EA; Start 04/18/18 at 02:00 Insulin Aspart (Novolog Insulin Pen) NOVOLOG *MILD* ALGORITHM WITH MEALS BEDTIME SC Last administered on 04/21/18 13:30; Admin Dose 5 UNIT; Start 04/17/18 at 17:55 Miscellaneous Information (*Order Clarification Bulletin) PHARMACY TO MIX ALL IVPB IN... Q96H XX ; Start 04/17/18 at 15:30 Pantoprazole (Protonix Tab) 40 mg DAILY@06 PO Last administered on 04/21/18 05:58; Admin Dose 40 MG; Start 04/18/18 at 06:00 Ampicillin Sodium/ Sulbactam Sodium 100 ml @ 100 mls/hr Q6 IVPB Last administered on 04/21/18 12:05; Admin Dose 100 MLS/HR; Start 04/18/18 at 12:30 Linagliptin (Tradjenta) 5 mg DAILY PO Last administered on 04/21/18 08:39; Admin Dose 5 MG; Start 04/18/18 at 16:30 Furosemide (Lasix) 40 mg DAILY IV Last administered on 04/21/18 08:39; Admin Dose 40 MG; Start 04/20/18 at 09:00 Acetazolamide (Diamox) 250 mg BID PO Last administered on 04/21/18 08:38; Admin Dose 250 MG; Start 04/19/18 at 21:00 Insulin Glargine (Lantus) 42 units QHS SC Last administered on 04/20/18at 21:07; Admin Dose 42 UNITS; Start 04/20/18 at 21:00 Methylprednisolone Sodium Succinate (Solu-Medrol) 40 mg DAILY IV ; Start 04/22/18 at 09:00 Insulin Human NPH (Humulin N) 5 unit DAILY SC ; Start 04/22/18 at 09:00 GAGAN GARCIA Apr 21, 2018 14:12
[2018-04-21] MEDS: [UNRECOGNIZED DRUG - REMARK] XX SCH (14:35)
--- NOTE | 2018-04-21 15:25 | PN ---
Date/Time of Note Date/Time of Note DATE: 04/21/18 TIME: 15:21 Assessment/Plan VTE Prophylaxis Risk score (from Ns)>0 risk: 8 SCD applied (from [facility]): No SCD contraindicated: low risk/ambulating Pharmacological prophylaxis: NA/contraindicated Pharm contraindication: low risk/ambulating Lines/Catheters IV Catheter Type (from [facility] PICC Line Central line still needed: No Urinary Cath still in place: No Assessment/Plan Hospital Course 47-year-old female who presented with: 1. Chest pain. Rule out acute coronary syndrome. , denies any CP currently 2. Shortness of breath likely secondary to congestive heart failure exacerbation. The patient has been noncompliant with her Lasix. The patient left AMA last time. The patient also has EF of 20% to 30%. Now, the patient is also having fevers. We cannot rule out underlying pneumonia. 3. Acute on chronic systolic congestive heart failure. 4. Cardiomyopathy with EF of 25% to 30%. 5. Hypertension. 6. Atrial fibrillation on Eliquis. 6. History of cocaine use. 7. Morbidly obese. 8. Abdominal pain secondary to abdominal wall hernia. 9 Leukocytosis with strep bactermia with strep pneumonia Recs - cw nebs - dec steroids - abx > iv ampicillin q6 - abx managment per ID - Influenza A and B neg - cw ASA/Lisnopril - pain managment - DM control, cw lantus and mealtime insulin dispo pending abx per ID Result Diagram: 04/21/18 0557 04/21/18 0557 Results 24hrs Laboratory Tests Test 04/20/18 17:32 04/20/18 20:42 04/21/18 01:12 04/21/18 05:56 Bedside Glucose 231 H 240 H 411 *H 365 H Test 04/21/18 05:57 04/21/18 08:02 04/21/18 12:19 White Blood Count 22.5 H Red Blood Count 4.32 Hemoglobin 12.8 Hematocrit 40.9 Mean Corpuscular 94.7 Volume Mean Corpuscular 29.6 Hemoglobin Mean Corpuscular 31.3 L Hemoglobin Concent Red Cell 14.7 H Distribution Width Platelet Count 196 Mean Platelet Volume 11.5 H Immature 1.200 H Granulocytes % Neutrophils % 86.1 H Lymphocytes % 8.3 L Monocytes % 4.0 Eosinophils % 0.1 Basophils % 0.3 Nucleated Red Blood 0.0 Cells % Immature 0.280 H Granulocytes # Neutrophils # 19.4 H Lymphocytes # 1.9 Monocytes # 0.9 Eosinophils # 0.0 Basophils # 0.1 Nucleated Red Blood 0.0 Cells # Sodium Level 136 Potassium Level 4.7 Chloride Level 97 Carbon Dioxide Level 30 Anion Gap 9 Blood Urea Nitrogen 31 H Creatinine 0.90 Est Glomerular > 60 Filtrat Rate mL/min Glucose Level 397 H Calcium Level 9.3 Phosphorus Level 4.4 Magnesium Level 1.9 Bedside Glucose 283 H 350 H Subjective 24 Hr Interval Summary Free Text/Dictation feels better now Exam/Review of Systems Vital Signs Vitals Vital Signs Date Temp Pulse Resp B/P (MAP) Pulse Ox O2 O2 Flow FiO2 Time Delivery Rate 04/21/18 65 16 94 21 13:32 04/21/18 97.5 120/69 Room Air 11:25 (86) 04/21/18 2.0 10:02 Intake and Output 04/20/18 04/20/18 04/21/18 1515:00 23:00 07:00 IntakeIntake Total 100 ml 1650 ml 100 ml OutputOutput Total 1300 ml BalanceBalance 100 ml 350 ml 100 ml Exam Exam Neck: supple Respiratory: clear to auscultation Cardiovascular: regular rate and rhythm Gastrointestinal: soft Genitourinary - Female: nl external genitalia Extremities: normal pulses Medications Medications Current Medications IV Flush (NS 3 ml) 3 ml PER PROTOCOL IV ; Start 04/15/18 at 17:00 Ondansetron HCl (Zofran Inj) 4 mg Q6H PRN IV NAUSEA AND/OR VOMITING; Start 04/15/18 at 17:00 Acetaminophen (Tylenol Tab) 650 mg Q6H PRN PO PAIN LEVEL 1-3 OR FEVER Last administered on 04/20/18at 17:34; Admin Dose 650 MG; Start 04/15/18 at 17:00 Docusate Sodium (Colace) 100 mg Q12H PRN PO CONSTIPATION Last administered on 04/17/18at 09:46; Admin Dose 100 MG; Start 04/15/18 at 17:00 Aspirin (Halfprin) 81 mg DAILY PO Last administered on 04/21/18at 08:38; Admin Dose 81 MG; Start 04/16/18 at 09:00 Atorvastatin Calcium (Lipitor) 10 mg QHS PO Last administered on 04/20/18at 20:47; Admin Dose 10 MG; Start 04/15/18 at 21:00 Digoxin (Digoxin) 0.125 mg DAILY@13 PO Last administered on 04/21/18 12:05; Admin Dose 0.125 MG; Start 04/16/18 at 13:00 Lisinopril (Zestril) 2.5 mg DAILY PO Last administered on 04/21/18 08:38; Admin Dose 2.5 MG; Start 04/16/18 at 09:00 Miscellaneous Information 1 ea NOTE XX ; Start 04/15/18 at 17:30 Glucose (Glutose) 15 gm Q15M PRN PO DECREASED GLUCOSE; Start 04/15/18 at 17:30 Glucose (Glutose) 22.5 gm Q15M PRN PO DECREASED GLUCOSE; Start 04/15/18 at 17:30 Dextrose (D50w Syringe) 25 ml Q15M PRN IV DECREASED GLUCOSE; Start 04/15/18 at 17:30 Dextrose (D50w Syringe) 50 ml Q15M PRN IV DECREASED GLUCOSE; Start 04/15/18 at 17:30 Glucagon (Glucagen) 1 mg Q15M PRN IM DECREASED GLUCOSE; Start 04/15/18 at 17:30 Glucose (Glutose) 15 gm Q15M PRN BUCCAL DECREASED GLUCOSE; Start 04/15/18 at 17:30 Lorazepam (Ativan) 1 mg BID PRN PO ANXIETY Last administered on 04/21/18 12:05; Admin Dose 1 MG; Start 04/15/18 at 23:00 Levalbuterol (Xopenex Neb) 1.25 mg Q4H RESP THERAPY HHN Last administered on 04/21/18 13:26; Admin Dose 1.25 MG; Start 04/16/18 at 01:00 Ipratropium [place] (Atrovent 0.02% (Neb)) 0.5 mg Q4H RESP THERAPY HHN Last administered on 04/21/18 13:26; Admin Dose 0.5 MG; Start 04/16/18 at 01:00 Acetaminophen/ Hydrocodone Bitart ([place] (5/325)) 1 tab Q8 PRN PO MODERATE PAIN LEVEL 4-6 Last administered on 04/21/18 12:06; Admin Dose 1 TAB; Start 04/16/18 at 10:30 IV Flush (NS 10 ml) 10 ml PRN PRN IV IV PROTOCOL; Start 04/16/18 at 10:30 Metoprolol Succinate (Toprol Xl) 12.5 mg BID PO Last administered on 04/21/18 08:38; Admin Dose 12.5 MG; Start 04/16/18 at 21:00 Hydromorphone HCl (Dilaudid) 0.5 mg Q6H PRN IV SEVERE PAIN LEVEL 7-10 Last administered on 04/21/18 13:40; Admin Dose 0.5 MG; Start 04/17/18 at 15:00 Insulin Aspart (Novolog Insulin Pen) 10 unit WITH MEALS SC Last administered on 04/21/18 13:26; Admin Dose 10 UNIT; Start 04/17/18 at 17:55 Diagnostic Test (Pha) (Accu-Chek) 1 ea 02 XX Last administered on 04/21/18 01:15; Admin Dose 1 EA; Start 04/18/18 at 02:00 Insulin Aspart (Novolog Insulin Pen) NOVOLOG *MILD* ALGORITHM WITH MEALS BEDTIME SC Last administered on 04/21/18 13:30; Admin Dose 5 UNIT; Start 04/17/18 at 17:55 Miscellaneous Information (*Order Clarification Bulletin) PHARMACY TO MIX ALL IVPB IN... Q96H XX ; Start 04/17/18 at 15:30 Pantoprazole (Protonix Tab) 40 mg DAILY@06 PO Last administered on 04/21/18 05:58; Admin Dose 40 MG; Start 04/18/18 at 06:00 Ampicillin Sodium/ Sulbactam Sodium 100 ml @ 100 mls/hr Q6 IVPB Last administered on 04/21/18 12:05; Admin Dose 100 MLS/HR; Start 04/18/18 at 12:30 Linagliptin (Tradjenta) 5 mg DAILY PO Last administered on 04/21/18 08:39; Admin Dose 5 MG; Start 04/18/18 at 16:30 Furosemide (Lasix) 40 mg DAILY IV Last administered on 04/21/18 08:39; Admin Dose 40 MG; Start 04/20/18 at 09:00 Acetazolamide (Diamox) 250 mg BID PO Last administered on 1/1/19at 08:38; Admin Dose 250 MG; Start 04/19/18 at 21:00 Insulin Glargine (Lantus) 42 units QHS SC Last administered on 04/20/18at 21:07; Admin Dose 42 UNITS; Start 04/20/18 at 21:00 Methylprednisolone Sodium Succinate (Solu-Medrol) 40 mg DAILY IV ; Start 04/22/18 at 09:00 Insulin Human NPH (Humulin N) 5 unit DAILY SC ; Start 04/22/18 at 09:00 ALEKSANDRA SALCIDO MD Apr 21, 2018 15:25
--- NOTE | 2018-04-21 15:35 | CONS ---
Date/Time of Note Date/Time of Note DATE: 04/21/18 TIME: 15:22 Assessment/Plan Assessment/Plan Hospital Course ID PROGRESS NOTE CURRENT ABX: DAY # 6 => Unasyn s/p Cefepime 24H INTERVAL SUMMARY * Continues slow improvement -- FC DC'd she is not increasing mobility and voiding * No fevers, VSS, WBC SLIGHTLY UP TODAY without dyspnea on supplemental O2 * Nocturnal BIPAP * 04/16/18 CXR: Stable patchy opacities of the mid left lung and lower right lung, which may represent persistent multifocal pneumonia. Stable cardiomegaly and/or pericardial effusion. Stable mild pulmonary vascular congestion. * 04/15/18 CXR: 2. Oval-shaped 6 cm mass like opacity lateral to the left hilum, new from 2017. This may represent a lung mass or round pneumonia. MICRO * 04/15/18 (-) MRSA * 04/15/18 (-)Respiratory Cx * 04/15/18 (-)INfluenza A/B * 04/15/18 BCx (+) BLOOD CULTURE Final BCULT GRAM BOTTLE 1 Gram positive cocci in pairs and chains . seen on gram stain of the broth Organism 1 STREPTOCOCCUS PNEUMONIAE S.PNEUMO M.I.C. RX --------- --- CEFOTAXIME 0.016 S PENICILLIN 0.016 S VANCOMYCIN 1 S S.PNEUMO Zone Size RX --------- --- * CLINDAMYCIN S * ERYTHROMYCIN S PHYSICAL EXAMINATION: GENERAL: Afebrile, VSS, polite/pleasant affect HEENT: AT, NC, anicteric =unremarkable NECK: Supple, trach CHEST: Equal chest rise bilaterally = supplemental O2 HEART: Pulse RRR ABDOMEN: Soft / NT /Morbid obese EXTREMITIES: Warm, dry, SKIN: No rash, no diaphoresis ID ASSESSMENT 47 yo F w/super morbid obesity admit with: 1. Severe sepsis with acute hypoxemia 2. Strep pneumonia bacteremia due to bilateral PNA 3. Community-acquired pneumonia and possible strep as well 4. CHF exacerbation * Systolic congestive heart failure with ejection fraction of 25% to 30%. 5. Chronic atrial fibrillation 6. Adult-onset diabetes. 7. Hypertension. 8. Dyslipidemia. 9. Abdominal pain secondary to abdominal wall hernia. 10. Psychiatric disorder. (-)MRSA Nares ABX ALLERGIES: NKDA (Morphine) INVASIVES: Right upper extremity PICC line, [place] CURRENT ABX: DAY #6 => Unasyn ID RECOMMENDATIONS/PLAN: 1. PCN is the ABX of choice with Streptococcal PNA/Bacteremia 2. She will need 7-8 days IV ABX coverage for bacteremia followed by 7 days PO Augmentin to complete 14 days for bacteremia * Anticipate HH w/Ceftriaxone IV to complete 14 days vs Augmentin PO after she receives 7 days IV ABX . Result Diagram: 04/21/18 0557 04/21/18 0557 Results 24hrs Laboratory Tests Test 04/20/18 17:32 04/20/18 20:42 04/21/18 01:12 04/21/18 05:56 Bedside Glucose 231 H 240 H 411 *H 365 H Test 04/21/18 05:57 04/21/18 08:02 04/21/18 12:19 White Blood Count 22.5 H Red Blood Count 4.32 Hemoglobin 12.8 Hematocrit 40.9 Mean Corpuscular 94.7 Volume Mean Corpuscular 29.6 Hemoglobin Mean Corpuscular 31.3 L Hemoglobin Concent Red Cell 14.7 H Distribution Width Platelet Count 196 Mean Platelet Volume 11.5 H Immature 1.200 H Granulocytes % Neutrophils % 86.1 H Lymphocytes % 8.3 L Monocytes % 4.0 Eosinophils % 0.1 Basophils % 0.3 Nucleated Red Blood 0.0 Cells % Immature 0.280 H Granulocytes # Neutrophils # 19.4 H Lymphocytes # 1.9 Monocytes # 0.9 Eosinophils # 0.0 Basophils # 0.1 Nucleated Red Blood 0.0 Cells # Sodium Level 136 Potassium Level 4.7 Chloride Level 97 Carbon Dioxide Level 30 Anion Gap 9 Blood Urea Nitrogen 31 H Creatinine 0.90 Est Glomerular > 60 Filtrat Rate mL/min Glucose Level 397 H Calcium Level 9.3 Phosphorus Level 4.4 Magnesium Level 1.9 Bedside Glucose 283 H 350 H Consultation Date/Type/Reason Admit Date/Time Apr 15, 2018 at 16:15 Initial Consult Date 04/16/18 Requesting Provider: ALEKSANDRA SALCIDO MD Exam/Review of Systems Vital Signs Vitals Vital Signs Date Temp Pulse Resp B/P (MAP) Pulse Ox O2 O2 Flow FiO2 Time Delivery Rate 04/21/18 65 16 94 21 13:32 04/21/18 97.5 120/69 Room Air 11:25 (86) 04/21/18 2.0 10:02 Intake and Output 04/20/18 04/20/18 04/21/18 1515:00 23:00 07:00 IntakeIntake Total 100 ml 1650 ml 100 ml OutputOutput Total 1300 ml BalanceBalance 100 ml 350 ml 100 ml Medications Medications Current Medications IV Flush (NS 3 ml) 3 ml PER PROTOCOL IV ; Start 04/15/18 at 17:00 Ondansetron HCl (Zofran Inj) 4 mg Q6H PRN IV NAUSEA AND/OR VOMITING; Start 04/15/18 at 17:00 Acetaminophen (Tylenol Tab) 650 mg Q6H PRN PO PAIN LEVEL 1-3 OR FEVER Last administered on 04/20/18at 17:34; Admin Dose 650 MG; Start 04/15/18 at 17:00 Docusate Sodium (Colace) 100 mg Q12H PRN PO CONSTIPATION Last administered on 04/17/18at 09:46; Admin Dose 100 MG; Start 04/15/18 at 17:00 Aspirin (Halfprin) 81 mg DAILY PO Last administered on 04/21/18at 08:38; Admin Dose 81 MG; Start 04/16/18 at 09:00 Atorvastatin Calcium (Lipitor) 10 mg QHS PO Last administered on 04/20/18at 20:47; Admin Dose 10 MG; Start 04/15/18 at 21:00 Digoxin (Digoxin) 0.125 mg DAILY@13 PO Last administered on 04/21/18at 12:05; Admin Dose 0.125 MG; Start 04/16/18 at 13:00 Lisinopril (Zestril) 2.5 mg DAILY PO Last administered on 04/21/18at 08:38; Admin Dose 2.5 MG; Start 04/16/18 at 09:00 Miscellaneous Information 1 ea NOTE XX ; Start 04/15/18 at 17:30 Glucose (Glutose) 15 gm Q15M PRN PO DECREASED GLUCOSE; Start 04/15/18 at 17:30 Glucose (Glutose) 22.5 gm Q15M PRN PO DECREASED GLUCOSE; Start 04/15/18 at 17:30 Dextrose (D50w Syringe) 25 ml Q15M PRN IV DECREASED GLUCOSE; Start 04/15/18 at 17:30 Dextrose (D50w Syringe) 50 ml Q15M PRN IV DECREASED GLUCOSE; Start 04/15/18 at 17:30 Glucagon (Glucagen) 1 mg Q15M PRN IM DECREASED GLUCOSE; Start 04/15/18 at 17:30 Glucose (Glutose) 15 gm Q15M PRN BUCCAL DECREASED GLUCOSE; Start 04/15/18 at 17:30 Lorazepam (Ativan) 1 mg BID PRN PO ANXIETY Last administered on 04/21/18 12:05; Admin Dose 1 MG; Start 04/15/18 at 23:00 Levalbuterol (Xopenex Neb) 1.25 mg Q4H RESP THERAPY HHN Last administered on 04/21/18 13:26; Admin Dose 1.25 MG; Start 04/16/18 at 01:00 Ipratropium [place] (Atrovent 0.02% (Neb)) 0.5 mg Q4H RESP THERAPY HHN Last administered on 04/21/18 13:26; Admin Dose 0.5 MG; Start 04/16/18 at 01:00 Acetaminophen/ Hydrocodone Bitart ([place] (5/325)) 1 tab Q8 PRN PO MODERATE PAIN LEVEL 4-6 Last administered on 04/21/18 12:06; Admin Dose 1 TAB; Start 04/16/18 at 10:30 IV Flush (NS 10 ml) 10 ml PRN PRN IV IV PROTOCOL; Start 04/16/18 at 10:30 Metoprolol Succinate (Toprol Xl) 12.5 mg BID PO Last administered on 04/21/18 08:38; Admin Dose 12.5 MG; Start 04/16/18 at 21:00 Hydromorphone HCl (Dilaudid) 0.5 mg Q6H PRN IV SEVERE PAIN LEVEL 7-10 Last ad ministered on 04/21/18 13:40; Admin Dose 0.5 MG; Start 04/17/18 at 15:00 Insulin Aspart (Novolog Insulin Pen) 10 unit WITH MEALS SC Last administered on 04/21/18 13:26; Admin Dose 10 UNIT; Start 04/17/18 at 17:55 Diagnostic Test (Pha) (Accu-Chek) 1 ea 02 XX Last administered on 04/21/18 01:15; Admin Dose 1 EA; Start 04/18/18 at 02:00 Insulin Aspart (Novolog Insulin Pen) NOVOLOG *MILD* ALGORITHM WITH MEALS BEDTIME SC Last administered on 04/21/18 13:30; Admin Dose 5 UNIT; Start 04/17/18 at 17:55 Miscellaneous Information (*Order Clarification Bulletin) PHARMACY TO MIX ALL IVPB IN... Q96H XX ; Start 04/17/18 at 15:30 Pantoprazole (Protonix Tab) 40 mg DAILY@06 PO Last administered on 04/21/18 05:58; Admin Dose 40 MG; Start 04/18/18 at 06:00 Ampicillin Sodium/ Sulbactam Sodium 100 ml @ 100 mls/hr Q6 IVPB Last administered on 04/21/18 12:05; Admin Dose 100 MLS/HR; Start 04/18/18 at 12:30 Linagliptin (Tradjenta) 5 mg DAILY PO Last administered on 04/21/18 08:39; Admin Dose 5 MG; Start 04/18/18 at 16:30 Furosemide (Lasix) 40 mg DAILY IV Last administered on 04/21/18 08:39; Admin Dose 40 MG; Start 04/20/18 at 09:00 Acetazolamide (Diamox) 250 mg BID PO Last administered on 04/21/18 08:38; Admin Dose 250 MG; Start 04/19/18 at 21:00 Insulin Glargine (Lantus) 42 units QHS SC Last administered on 04/20/18at 21:07; Admin Dose 42 UNITS; Start 04/20/18 at 21:00 Methylprednisolone Sodium Succinate (Solu-Medrol) 40 mg DAILY IV ; Start 04/22/18 at 09:00 Insulin Human NPH (Humulin N) 5 unit DAILY SC ; Start 04/22/18 at 09:00 SON MCKENZIE NP Apr 21, 2018 15:32
--- NOTE | 2018-04-21 18:54 | NUR ---
END OF SHIFT: No new complaints. Abdominal pain well controlled with IV dilaudid only. Non-compliant with diet. Seen eating food from outside despite education. VSS.
[2018-04-21] MEDS: ATORVASTATIN 10 MG TAB PO SCH (21:03)
[2018-04-21] MEDS: INSULIN GLARGINE [LANTus] (100 UNITS/ML) SYG SC SCH (21:09)
[2018-04-22] VITALS (10 sets, daily range): BP systolic 89–114; BP diastolic 42–63; PULSE 71–91; RESP 18–20
[2018-04-22] MEDS: AMPICILLIN/SULB 3 GM/NS (PMX) 100 ML IVPB SCH ×4 (00:26→18:00)
[2018-04-22] MEDS: LEVALBUTEROL (NEB) 1.25 MG/0.5 ML AMP HHN SCH ×5 (01:00→16:41)
[2018-04-22] MEDS: IPRATROPIUM (NEB) 0.5 MG/2.5 ML AMP HHN SCH ×5 (01:00→16:43)
[2018-04-22] MEDS: HYDROCODONE/APAP (5/325) TAB PO PRN ×2 (01:57→16:07)
[2018-04-22] MEDS: ACCU-CHEK XX SCH (02:00)
[2018-04-22] MEDS: HYDROmorphONE 0.5 MG/0.5 ML SYG IV PRN ×4 (05:52→17:14)
[2018-04-22] MEDS: PANTOPRAZOLE (EC) 40 MG TAB PO SCH (06:15)
[2018-04-22] MEDS: INSULIN ASPART [NOVOLOG] 3 ML PEN SC SCH ×6 (07:55→17:21)
[2018-04-22] MEDS ORDERED: METHYLPREDNISOLONE 40 MG INJ IV SCH (09:00)
[2018-04-22] MEDS ORDERED: NPH, HUMAN INSULIN ISOPHANE 3ML VIAL SC SCH (09:00)
[2018-04-22] MEDS: METOPROLOL (XL) 25 MG TAB PO SCH (09:00)
[2018-04-22] MEDS: LINAGLIPTIN 5 MG TABLET PO SCH (09:07)
[2018-04-22] MEDS: ASPIRIN (EC) 81 MG TAB PO SCH (09:08)
[2018-04-22] MEDS: LISINOPRIL 5 MG TAB PO SCH (09:08)
[2018-04-22] MEDS: FUROSEMIDE 40 MG INJ IV SCH (09:10)
--- NOTE | 2018-04-22 11:35 | CONS ---
Date/Time of Note Date/Time of Note DATE: 04/22/18 TIME: 11:35 Consult Date/Type/Reason Admit Date/Time Apr 15, 2018 at 16:15 Initial Consult Date 04/16/18 Type of Consultation: Pulmonary ICU Requesting Provider: ALEKSANDRA SALCIDO MD Subjective Patient remains comfortable this morning. No new events Objective Vital Signs Date Temp Pulse Resp B/P (MAP) Pulse Ox O2 O2 Flow FiO2 Time Delivery Rate 04/22/18 97.8 84 20 100/60 100 Room Air 11:02 (73) 04/21/18 3.0 21:00 04/21/18 21 13:32 Intake and Output 04/21/18 04/21/18 04/22/18 1515:00 23:00 07:00 IntakeIntake Total 1220 ml 600 ml OutputOutput Total 1600 ml 500 ml BalanceBalance -380 ml 100 ml Exam GENERAL: VITAL SIGNS: per chart NECK: Supple. No JVD or lymphadenopathy. CARDIAC EXAM: S1, S2. Systolic ejection murmur CHEST: Diminished air entry bilaterally ABDOMEN: Soft, nontender. No guarding or rebound. EXTREMITIES: No cyanosis, clubbing or edema. NEUROLOGIC: Generalized weakness. No focal deficits. Results/Medications Result Diagram: 04/22/18 0545 04/22/18 0545 Results 24 hrs Laboratory Tests Test 04/21/18 12:19 04/21/18 17:24 04/21/18 21:02 04/22/18 01:11 Bedside Glucose 350 H 354 H 288 H 157 Test 04/22/18 05:45 04/22/18 08:36 White Blood Count 15.9 #H Red Blood Count 4.47 Hemoglobin 13.3 Hematocrit 41.5 Mean Corpuscular Volume 92.8 Mean Corpuscular 29.8 Hemoglobin Mean Corpuscular 32.0 Hemoglobin Concent Red Cell Distribution 14.9 H Width Platelet Count 230 Mean Platelet Volume 11.4 H Immature Granulocytes % 2.800 H Neutrophils % 68.2 Lymphocytes % 21.4 Monocytes % 6.6 Eosinophils % 0.9 Basophils % 0.1 Nucleated Red Blood 0.0 Cells % Immature Granulocytes # 0.450 H Neutrophils # 10.8 H Lymphocytes # 3.4 H Monocytes # 1.1 H Eosinophils # 0.1 Basophils # 0.0 Nucleated Red Blood 0.0 Cells # Sodium Level 143 Potassium Level 4.2 Chloride Level 101 Carbon Dioxide Level 34 H Anion Gap 8 Blood Urea Nitrogen 32 H Creatinine 0.91 Est Glomerular Filtrat > 60 Rate mL/min Glucose Level 108 # Calcium Level 9.4 Phosphorus Level 5.0 H Magnesium Level 1.9 Bedside Glucose 93 Medications Current Medications IV Flush (NS 3 ml) 3 ml PER PROTOCOL IV ; Start 04/15/18 at 17:00 Ondansetron HCl (Zofran Inj) 4 mg Q6H PRN IV NAUSEA AND/OR VOMITING; Start 04/15/18 at 17:00 Acetaminophen (Tylenol Tab) 650 mg Q6H PRN PO PAIN LEVEL 1-3 OR FEVER Last administered on 04/20/18at 17:34; Admin Dose 650 MG; Start 04/15/18 at 17:00 Docusate Sodium (Colace) 100 mg Q12H PRN PO CONSTIPATION Last administered on 04/17/18at 09:46; Admin Dose 100 MG; Start 04/15/18 at 17:00 Aspirin (Halfprin) 81 mg DAILY PO Last administered on 04/22/18 09:08; Admin Dose 81 MG; Start 04/16/18 at 09:00 Atorvastatin Calcium (Lipitor) 10 mg QHS PO Last administered on 04/21/18 21:03; Admin Dose 10 MG; Start 04/15/18 at 21:00 Digoxin (Digoxin) 0.125 mg DAILY@13 PO Last administered on 04/21/18 12:05; Admin Dose 0.125 MG; Start 04/16/18 at 13:00 Lisinopril (Zestril) 2.5 mg DAILY PO Last administered on 04/22/18 09:08; Admin Dose 2.5 MG; Start 04/16/18 at 09:00 Miscellaneous Information 1 ea NOTE XX ; Start 04/15/18 at 17:30 Glucose (Glutose) 15 gm Q15M PRN PO DECREASED GLUCOSE; Start 04/15/18 at 17:30 Glucose (Glutose) 22.5 gm Q15M PRN PO DECREASED GLUCOSE; Start 04/15/18 at 17:30 Dextrose (D50w Syringe) 25 ml Q15M PRN IV DECREASED GLUCOSE; Start 04/15/18 at 17:30 Dextrose (D50w Syringe) 50 ml Q15M PRN IV DECREASED GLUCOSE; Start 04/15/18 at 17:30 Glucagon (Glucagen) 1 mg Q15M PRN IM DECREASED GLUCOSE; Start 04/15/18 at 17:30 Glucose (Glutose) 15 gm Q15M PRN BUCCAL DECREASED GLUCOSE; Start 04/15/18 at 17:30 Lorazepam (Ativan) 1 mg BID PRN PO ANXIETY Last administered on 04/21/18 12:05; Admin Dose 1 MG; Start 04/15/18 at 23:00 Levalbuterol (Xopenex Neb) 1.25 mg Q4H RESP THERAPY HHN Last administered on 04/22/18 10:33; Admin Dose 1.25 MG; Start 04/16/18 at 01:00 Ipratropium [place] (Atrovent 0.02% (Neb)) 0.5 mg Q4H RESP THERAPY HHN Last administered on 04/21/18 16:49; Admin Dose 0.5 MG; Start 04/16/18 at 01:00 Acetaminophen/ Hydrocodone Bitart ([place] (5/325)) 1 tab Q8 PRN PO MODERATE PAIN LEVEL 4-6 Last administered on 04/22/18 01:57; Admin Dose 1 TAB; Start 04/16/18 at 10:30 IV Flush (NS 10 ml) 10 ml PRN PRN IV IV PROTOCOL; Start 04/16/18 at 10:30 Metoprolol Succinate (Toprol Xl) 12.5 mg BID PO Last administered on 04/22/18 09:00; Admin Dose 12.5 MG; Start 04/16/18 at 21:00 Hydromorphone HCl (Dilaudid) 0.5 mg Q6H PRN IV SEVERE PAIN LEVEL 7-10 Last administered on 04/22/18 11:21; Admin Dose 0.5 MG; Start 04/17/18 at 15:00 Insulin Aspart (Novolog Insulin Pen) 10 unit WITH MEALS SC Last administered on 04/21/18 17:40; Admin Dose 10 UNIT; Start 04/17/18 at 17:55 Diagnostic Test (Pha) (Accu-Chek) 1 ea 02 XX Last administered on 04/21/18 01:15; Admin Dose 1 EA; Start 04/18/18 at 02:00 Insulin Aspart (Novolog Insulin Pen) NOVOLOG *MILD* ALGORITHM WITH MEALS BEDTIME SC Last administered on 04/22/18 11:33; Admin Dose 2 UNIT; Start 04/17/18 at 17:55 Miscellaneous Information (*Order Clarification Bulletin) PHARMACY TO MIX ALL IVPB IN... Q96H XX ; Start 04/17/18 at 15:30 Pantoprazole (Protonix Tab) 40 mg DAILY@06 PO Last administered on 04/22/18 06:15; Admin Dose 40 MG; Start 04/18/18 at 06:00 Ampicillin Sodium/ Sulbactam Sodium 100 ml @ 100 mls/hr Q6 IVPB Last administered on 04/22/18 05:52; Admin Dose 100 MLS/HR; Start 04/18/18 at 12:30 Linagliptin (Tradjenta) 5 mg DAILY PO Last administered on 04/22/18 09:07; Admin Dose 5 MG; Start 04/18/18 at 16:30 Furosemide (Lasix) 40 mg DAILY IV Last administered on 04/22/18 09:10; Admin Dose 40 MG; Start 04/20/18 at 09:00 Insulin Glargine (Lantus) 42 units QHS SC Last administered on 04/21/18 21:09; Admin Dose 42 UNITS; Start 04/20/18 at 21:00 Methylprednisolone Sodium Succinate (Solu-Medrol) 40 mg DAILY IV Last administered on 04/22/18 08:38; Admin Dose 40 MG; Start 04/22/18 at 09:00 Insulin Human NPH (Humulin N) 5 unit DAILY SC Last administered on 04/22/18 09:21; Admin Dose 5 UNIT; Start 04/22/18 at 09:00 Assessment/Plan Chief Complaint/Hosp Course IMP: 1. Acute on chronic hypoxemic respiratory failure secondary to streptococcal pn [place] 2. Worsening hyperglycemia 3. Morbid obesity with chronic hypercapnia 4. Congestive cardiac failure with severe cardiomyopathy 5. Chronic atrial fibrillation RECS: 1. Continue bronchodilators 2. Antibiotics 3. Supplemental O2--titrate as tolerated 4. Nocturnal NIV decrease steroids. 5. OOB to chair Okay for DC today from pulmonary standpoint Steroid taper. Pulmonary function testing and follow-up with pulmonary. SLOANE FRASER MD, [facility] Apr 22, 2018 11:35
--- NOTE | 2018-04-22 12:44 | CONS ---
Date/Time of Note Date/Time of Note DATE: 04/22/18 TIME: 12:40 Assessment/Plan Assessment/Plan Hospital Course IMPRESSION: 1. Congestive heart failure exacerbation, systolic, acute on chronic.-neg trop x 3. improved volume status 2. Hypotension, borderline. 3. Tachycardia consistent with sinus tachycardia in the setting of likely decompensated congestive heart failure. 4. Chronic obstructive pulmonary disease exacerbation. 5. Possible pneumonia. 6. Diabetes mellitus. 7. abd pain/constipation Recc: -Tele -serial ecg's -Continue BB/ACEI as tolerated only -Continue lasix at current dose s/p diamox. -Continue abx's/steroids/bronchodilators -Continue asa/digoxin -OK for d/c from cardiac standpoint Result Diagram: 04/22/18 0545 04/22/18 0545 Results 24hrs Laboratory Tests Test 04/21/18 17:24 04/21/18 21:02 04/22/18 01:11 04/22/18 05:45 Bedside Glucose 354 H 288 H 157 White Blood Count 15.9 #H Red Blood Count 4.47 Hemoglobin 13.3 Hematocrit 41.5 Mean Corpuscular Volume 92.8 Mean Corpuscular 29.8 Hemoglobin Mean Corpuscular 32.0 Hemoglobin Concent Red Cell Distribution 14.9 H Width Platelet Count 230 Mean Platelet Volume 11.4 H Immature Granulocytes % 2.800 H Neutrophils % 68.2 Lymphocytes % 21.4 Monocytes % 6.6 Eosinophils % 0.9 Basophils % 0.1 Nucleated Red Blood 0.0 Cells % Immature Granulocytes # 0.450 H Neutrophils # 10.8 H Lymphocytes # 3.4 H Monocytes # 1.1 H Eosinophils # 0.1 Basophils # 0.0 Nucleated Red Blood 0.0 Cells # Sodium Level 143 Potassium Level 4.2 Chloride Level 101 Carbon Dioxide Level 34 H Anion Gap 8 Blood Urea Nitrogen 32 H Creatinine 0.91 Est Glomerular Filtrat > 60 Rate mL/min Glucose Level 108 # Calcium Level 9.4 Phosphorus Level 5.0 H Magnesium Level 1.9 Test 04/22/18 08:36 04/22/18 11:26 Bedside Glucose 93 206 Consultation Date/Type/Reason Admit Date/Time Apr 15, 2018 at 16:15 Initial Consult Date 04/16/18 Type of Consult cardiology Reason for Consultation CHF Requesting Provider: ALEKSANDRA SALCIDO MD Exam/Review of Systems Vital Signs Vitals Vital Signs Date Temp Pulse Resp B/P (MAP) Pulse Ox O2 O2 Flow FiO2 Time Delivery Rate 04/22/18 89 12:29 04/22/18 97.8 20 100/60 100 Room Air 11:02 (73) 04/21/18 3.0 21:00 04/21/18 21 13:32 Intake and Output 04/21/18 04/21/18 04/22/18 1515:00 23:00 07:00 IntakeIntake Total 1220 ml 600 ml OutputOutput Total 1600 ml 500 ml BalanceBalance -380 ml 100 ml Exam Review of Systems: CONSTITUTIONAL: No fevers, chills. PULMONARY: No sob CARDIOVASCULAR: No chest pain/palpitations GASTROINTESTINAL: No nausea/vomiting. GENITOURINARY: No hematuria/dysuria. MUSCULOSKELETAL: No myagias/arthalgias. PSYCHIATRIC: The patient denies depression. NEUROLOGIC: No weakness Constitutional: alert Psych: no complaints Head: normocephalic ENMT: mucosa pink and moist Neck: supple, jvd (9 cm water) Respiratory: diminished breath sounds Cardiovascular: regular rate and rhythm Gastrointestinal: soft, non-tender Musculoskeletal: muscle tone Extremities: edema (none) Neurological: other (No focal deficits) Medications Medications Current Medications IV Flush (NS 3 ml) 3 ml PER PROTOCOL IV ; Start 04/15/18 at 17:00 Ondansetron HCl (Zofran Inj) 4 mg Q6H PRN IV NAUSEA AND/OR VOMITING; Start 04/15/18 at 17:00 Acetaminophen (Tylenol Tab) 650 mg Q6H PRN PO PAIN LEVEL 1-3 OR FEVER Last administered on 04/20/18at 17:34; Admin Dose 650 MG; Start 04/15/18 at 17:00 Docusate Sodium (Colace) 100 mg Q12H PRN PO CONSTIPATION Last administered on 04/17/18at 09:46; Admin Dose 100 MG; Start 04/15/18 at 17:00 Aspirin (Halfprin) 81 mg DAILY PO Last administered on 04/22/18 09:08; Admin Dose 81 MG; Start 04/16/18 at 09:00 Atorvastatin Calcium (Lipitor) 10 mg QHS PO Last administered on 04/21/18at 21:03; Admin Dose 10 MG; Start 04/15/18 at 21:00 Digoxin (Digoxin) 0.125 mg DAILY@13 PO Last administered on 04/21/18 12:05; Admin Dose 0.125 MG; Start 04/16/18 at 13:00 Lisinopril (Zestril) 2.5 mg DAILY PO Last administered on 04/22/18 09:08; Admin Dose 2.5 MG; Start 04/16/18 at 09:00 Miscellaneous Information 1 ea NOTE XX ; Start 04/15/18 at 17:30 Glucose (Glutose) 15 gm Q15M PRN PO DECREASED GLUCOSE; Start 04/15/18 at 17:30 Glucose (Glutose) 22.5 gm Q15M PRN PO DECREASED GLUCOSE; Start 04/15/18 at 17:30 Dextrose (D50w Syringe) 25 ml Q15M PRN IV DECREASED GLUCOSE; Start 04/15/18 at 17:30 Dextrose (D50w Syringe) 50 ml Q15M PRN IV DECREASED GLUCOSE; Start 04/15/18 at 17:30 Glucagon (Glucagen) 1 mg Q15M PRN IM DECREASED GLUCOSE; Start 04/15/18 at 17:30 Glucose (Glutose) 15 gm Q15M PRN BUCCAL DECREASED GLUCOSE; Start 04/15/18 at 17:30 Lorazepam (Ativan) 1 mg BID PRN PO ANXIETY Last administered on 04/21/18 12:05; Admin Dose 1 MG; Start 04/15/18 at 23:00 Levalbuterol (Xopenex Neb) 1.25 mg Q4H RESP THERAPY HHN Last administered on 04/22/18 10:33; Admin Dose 1.25 MG; Start 04/16/18 at 01:00 Ipratropium [place] (Atrovent 0.02% (Neb)) 0.5 mg Q4H RESP THERAPY HHN Last administered on 04/21/18 16:49; Admin Dose 0.5 MG; Start 04/16/18 at 01:00 Acetaminophen/ Hydrocodone Bitart ([place] (5/325)) 1 tab Q8 PRN PO MODERATE PAIN LEVEL 4-6 Last administered on 04/22/18 01:57; Admin Dose 1 TAB; Start 04/16/18 at 10:30 IV Flush (NS 10 ml) 10 ml PRN PRN IV IV PROTOCOL; Start 04/16/18 at 10:30 Metoprolol Succinate (Toprol Xl) 12.5 mg BID PO Last administered on 04/22/18 09:00; Admin Dose 12.5 MG; Start 04/16/18 at 21:00 Hydromorphone HCl (Dilaudid) 0.5 mg Q6H PRN IV SEVERE PAIN LEVEL 7-10 Last administered on 04/22/18 11:21; Admin Dose 0.5 MG; Start 04/17/18 at 15:00 Insulin Aspart (Novolog Insulin Pen) 10 unit WITH MEALS SC Last administered on 04/22/18 11:33; Admin Dose 10 UNIT; Start 04/17/18 at 17:55 Diagnostic Test (Pha) (Accu-Chek) 1 ea 02 XX Last administered on 04/21/18 01:15; Admin Dose 1 EA; Start 04/18/18 at 02:00 Insulin Aspart (Novolog Insulin Pen) NOVOLOG *MILD* ALGORITHM WITH MEALS BEDTIME SC Last administered on 04/22/18 11:33; Admin Dose 2 UNIT; Start 04/17/18 at 17:55 Miscellaneous Information (*Order Clarification Bulletin) PHARMACY TO MIX ALL IVPB IN... Q96H XX ; Start 04/17/18 at 15:30 Pantoprazole (Protonix Tab) 40 mg DAILY@06 PO Last administered on 04/22/18 06:15; Admin Dose 40 MG; Start 04/18/18 at 06:00 Ampicillin Sodium/ Sulbactam Sodium 100 ml @ 100 mls/hr Q6 IVPB Last administered on 04/22/18 05:52; Admin Dose 100 MLS/HR; Start 04/18/18 at 12:30 Linagliptin (Tradjenta) 5 mg DAILY PO Last administered on 04/22/18 09:07; Admin Dose 5 MG; Start 04/18/18 at 16:30 Furosemide (Lasix) 40 mg DAILY IV Last administered on 04/22/18 09:10; Admin Dose 40 MG; Start 04/20/18 at 09:00 Insulin Glargine (Lantus) 42 units QHS SC Last administered on 04/21/18 21:09; Admin Dose 42 UNITS; Start 04/20/18 at 21:00 Methylprednisolone Sodium Succinate (Solu-Medrol) 40 mg DAILY IV Last administered on 04/22/18at 08:38; Admin Dose 40 MG; Start 04/22/18 at 09:00 Insulin Human NPH (Humulin N) 5 unit DAILY SC Last administered on 04/22/18at 09:21; Admin Dose 5 UNIT; Start 04/22/18 at 09:00 GAGAN GARCIA Apr 22, 2018 12:43
[2018-04-22] MEDS: DIGOXIN 0.125 MG TAB PO SCH (13:25)
--- NOTE | 2018-04-22 14:04 | CONS ---
Date/Time of Note Date/Time of Note DATE: 04/22/18 TIME: 14:02 Assessment/Plan Assessment/Plan Hospital Course Patient is alert feels good and wants to go home she ambulated in the room, no shortness of breath on room air, no fevers WBC 15.9 platelets 230 neutrophils 68.2 BUN 32 creatinine 0.91 Microbiology: Blood and sputum culture grew Streptococcus Antimicrobials: Unasyn Physical examination: This is a morbidly obese well-developed middle-aged -[place] woman who is in no distress. Head atraumatic normocephalic neck is obese chest rise symmetrical breath sounds diminished at bases. Heart: S1-S2 abdomen soft bowel sounds present extremities with bilateral edema Assessment: 1. S/p severe sepsis with acute hypoxemia on admission 2. Strep bacteremia 2 to PNA 4. S/p CHF exacerbation 5. Diabetes 6. Morbid obesity 7. Chronic atrial fibrillation Plan: Patient is markedly improved, on IV antibiotics day #7, okay to discharge on oral clindamycin or Augmentin for 6 more days when medically cleared Result Diagram: 04/22/18 0545 04/22/18 0545 Results 24hrs Laboratory Tests Test 04/21/18 17:24 04/21/18 21:02 04/22/18 01:11 04/22/18 05:45 Bedside Glucose 354 H 288 H 157 White Blood Count 15.9 #H Red Blood Count 4.47 Hemoglobin 13.3 Hematocrit 41.5 Mean Corpuscular Volume 92.8 Mean Corpuscular 29.8 Hemoglobin Mean Corpuscular 32.0 Hemoglobin Concent Red Cell Distribution 14.9 H Width Platelet Count 230 Mean Platelet Volume 11.4 H Immature Granulocytes % 2.800 H Neutrophils % 68.2 Lymphocytes % 21.4 Monocytes % 6.6 Eosinophils % 0.9 Basophils % 0.1 Nucleated Red Blood 0.0 Cells % Immature Granulocytes # 0.450 H Neutrophils # 10.8 H Lymphocytes # 3.4 H Monocytes # 1.1 H Eosinophils # 0.1 Basophils # 0.0 Nucleated Red Blood 0.0 Cells # Sodium Level 143 Potassium Level 4.2 Chloride Level 101 Carbon Dioxide Level 34 H Anion Gap 8 Blood Urea Nitrogen 32 H Creatinine 0.91 Est Glomerular Filtrat > 60 Rate mL/min Glucose Level 108 # Calcium Level 9.4 Phosphorus Level 5.0 H Magnesium Level 1.9 Test 04/22/18 08:36 04/22/18 11:26 Bedside Glucose 93 206 Consultation Date/Type/Reason Admit Date/Time Apr 15, 2018 at 16:15 Initial Consult Date 04/16/18 Type of Consult id Requesting Provider: ALEKSANDRA SALCIDO MD Exam/Review of Systems Vital Signs Vitals Vital Signs Date Temp Pulse Resp B/P (MAP) Pulse Ox O2 O2 Flow FiO2 Time Delivery Rate 04/22/18 89 12:29 04/22/18 97.8 20 100/60 100 Room Air 11:02 (73) 04/21/18 3.0 21:00 04/21/18 21 13:32 Intake and Output 04/21/18 04/21/18 04/22/18 1414:59 22:59 06:59 IntakeIntake Total 1220 ml 600 ml OutputOutput Total 1600 ml 500 ml BalanceBalance -380 ml 100 ml Medications Medications Current Medications IV Flush (NS 3 ml) 3 ml PER PROTOCOL IV ; Start 04/15/18 at 17:00 Ondansetron HCl (Zofran Inj) 4 mg Q6H PRN IV NAUSEA AND/OR VOMITING; Start 04/15/18 at 17:00 Acetaminophen (Tylenol Tab) 650 mg Q6H PRN PO PAIN LEVEL 1-3 OR FEVER Last administered on 04/20/18at 17:34; Admin Dose 650 MG; Start 04/15/18 at 17:00 Docusate Sodium (Colace) 100 mg Q12H PRN PO CONSTIPATION Last administered on 04/17/18at 09:46; Admin Dose 100 MG; Start 04/15/18 at 17:00 Aspirin (Halfprin) 81 mg DAILY PO Last administered on 04/22/18 09:08; Admin Dose 81 MG; Start 04/16/18 at 09:00 Atorvastatin Calcium (Lipitor) 10 mg QHS PO Last administered on 04/21/18 21:03; Admin Dose 10 MG; Start 04/15/18 at 21:00 Digoxin (Digoxin) 0.125 mg DAILY@13 PO Last administered on 04/22/18 13:25; Admin Dose 0.125 MG; Start 04/16/18 at 13:00 Lisinopril (Zestril) 2.5 mg DAILY PO Last administered on 04/22/18 09:08; Admin Dose 2.5 MG; Start 04/16/18 at 09:00 Miscellaneous Information 1 ea NOTE XX ; Start 04/15/18 at 17:30 Glucose (Glutose) 15 gm Q15M PRN PO DECREASED GLUCOSE; Start 04/15/18 at 17:30 Glucose (Glutose) 22.5 gm Q15M PRN PO DECREASED GLUCOSE; Start 04/15/18 at 17:30 Dextrose (D50w Syringe) 25 ml Q15M PRN IV DECREASED GLUCOSE; Start 04/15/18 at 17:30 Dextrose (D50w Syringe) 50 ml Q15M PRN IV DECREASED GLUCOSE; Start 04/15/18 at 17:30 Glucagon (Glucagen) 1 mg Q15M PRN IM DECREASED GLUCOSE; Start 04/15/18 at 17:30 Glucose (Glutose) 15 gm Q15M PRN BUCCAL DECREASED GLUCOSE; Start 04/15/18 at 17:30 Lorazepam (Ativan) 1 mg BID PRN PO ANXIETY Last administered on 04/21/18 12:05; Admin Dose 1 MG; Start 04/15/18 at 23:00 Levalbuterol (Xopenex Neb) 1.25 mg Q4H RESP THERAPY HHN Last administered on 04/22/18 10:33; Admin Dose 1.25 MG; Start 04/16/18 at 01:00 Ipratropium [place] (Atrovent 0.02% (Neb)) 0.5 mg Q4H RESP THERAPY HHN Last administered on 04/21/18 16:49; Admin Dose 0.5 MG; Start 04/16/18 at 01:00 Acetaminophen/ Hydrocodone Bitart ([place] (5/325)) 1 tab Q8 PRN PO MODERATE PAIN LEVEL 4-6 Last administered on 04/22/18 01:57; Admin Dose 1 TAB; Start 04/16/18 at 10:30 IV Flush (NS 10 ml) 10 ml PRN PRN IV IV PROTOCOL; Start 04/16/18 at 10:30 Metoprolol Succinate (Toprol Xl) 12.5 mg BID PO Last administered on 04/22/18 09:00; Admin Dose 12.5 MG; Start 04/16/18 at 21:00 Hydromorphone HCl (Dilaudid) 0.5 mg Q6H PRN IV SEVERE PAIN LEVEL 7-10 Last administered on 04/22/18 11:21; Admin Dose 0.5 MG; Start 04/17/18 at 15:00 Insulin Aspart (Novolog Insulin Pen) 10 unit WITH MEALS SC Last administered on 04/22/18 11:33; Admin Dose 10 UNIT; Start 04/17/18 at 17:55 Diagnostic Test (Pha) (Accu-Chek) 1 ea 02 XX Last administered on 04/21/18 01:15; Admin Dose 1 EA; Start 04/18/18 at 02:00 Insulin Aspart (Novolog Insulin Pen) NOVOLOG *MILD* ALGORITHM WITH MEALS BEDTIME SC Last administered on 04/22/18 11:33; Admin Dose 2 UNIT; Start 04/17/18 at 17:55 Miscellaneous Information (*Order Clarification Bulletin) PHARMACY TO MIX ALL IVPB IN... Q96H XX ; Start 04/17/18 at 15:30 Pantoprazole (Protonix Tab) 40 mg DAILY@06 PO Last administered on 04/22/18 06:15; Admin Dose 40 MG; Start 04/18/18 at 06:00 Ampicillin Sodium/ Sulbactam Sodium 100 ml @ 100 mls/hr Q6 IVPB Last administered on 04/22/18 13:26; Admin Dose 100 MLS/HR; Start 04/18/18 at 12:30 Linagliptin (Tradjenta) 5 mg DAILY PO Last administered on 04/22/18 09:07; Admin Dose 5 MG; Start 04/18/18 at 16:30 Furosemide (Lasix) 40 mg DAILY IV Last administered on 04/22/18 09:10; Admin Dose 40 MG; Start 04/20/18 at 09:00 Insulin Glargine (Lantus) 42 units QHS SC Last administered on 04/21/18 21:09; Admin Dose 42 UNITS; Start 04/20/18 at 21:00 Methylprednisolone Sodium Succinate (Solu-Medrol) 40 mg DAILY IV Last administered on 04/22/18 08:38; Admin Dose 40 MG; Start 04/22/18 at 09:00 Insulin Human NPH (Humulin N) 5 unit DAILY SC Last administered on 04/22/18 09:21; Admin Dose 5 UNIT; Start 04/22/18 at 09:00 HUE KERN NP Apr 22, 2018 14:04
--- NOTE | 2018-04-22 15:34 | PDOCDIS ---
Discharge Instructions DIAGNOSIS Discharge Diagnosis strept pneumonia bacterimia chf copd CONDITION [id number] Patient Condition: [id number] Fair HOME CARE INSTRUCTIONS: [id number] Diet Instructions: [id number] Reduced Calorie ACTIVITY: [id number] Activity Restrictions: [id number] Slowly Increase Activity Rest between Activity Avoid heavy lifting FOLLOW UP/APPOINTMENTS Follow-up Plan f/u pcp in 1- 2 weeks ALEKSANDRA SALCIDO MD Apr 22, 2018 15:34
[2018-04-22] MEDS ORDERED: INSU100I33 SC (15:41)
[2018-04-22] MEDS ORDERED: METF100010 PO (15:41)
[2018-04-22] MEDS ORDERED: LORA-441 PO (15:41)
[2018-04-22] MEDS ORDERED: METO-335 PO (15:41)
[2018-04-22] MEDS ORDERED: IPRA3AMP29 INHALATION (15:41)
[2018-04-22] MEDS ORDERED: POTA20TA96 PO (15:41)
[2018-04-22] MEDS ORDERED: LISI-313 PO (15:41)
[2018-04-22] MEDS ORDERED: PANT40TA3 PO (15:41)
[2018-04-22] MEDS ORDERED: AMOX1TAB10 PO (15:41)
[2018-04-22] MEDS ORDERED: QUET100T PO (15:41)
[2018-04-22] MEDS ORDERED: DIGO125T PO (15:41)
[2018-04-22] MEDS ORDERED: FURO40TA4 PO (15:41)
[2018-04-22] MEDS ORDERED: APIX5TAB PO (15:41)
[2018-04-22] MEDS ORDERED: PRED20TA PO (15:41)
[2018-04-22] MEDS ORDERED: HYDR-4011 PO (15:41)
[2018-04-22] MEDS ORDERED: ASPI-817 PO (15:41)
[2018-04-22] MEDS ORDERED: DOCU-144 PO (15:41)
[2018-04-22] MEDS ORDERED: ATOR10TA65 PO (15:41)
--- NOTE | 2018-04-22 16:16 | DS ---
DATE OF ADMISSION: 04/15/2018 DATE OF DISCHARGE: 04/22/2018 HISTORY OF PRESENT ILLNESS AND HOSPITAL COURSE: This is a 47-year-old female with past medical histo ry of diabetes, hypertension, hyperlipidemia, morbid obesity, systolic congestive heart failure, EF o f 25% to 30%, psychiatric disorder, abdominal pain, who was initially admitted to [facility] on 04/07/2018. At that time, the patient left AMA because she had to take care of her son' s issues. After, the patient said that she left home, she has not been feeling well. She was having chest pain, shortness of breath. She was feeling more sick, having fevers and chills and made her c ome to the emergency department. On admission, blood pressure 128/74, temperature 99.9. The patient had diffuse rhonchi in all lung esqueda on examination of chest. EKG showed AFib. Chest x-ray showe d pulmonary vascular congestion, interval development of patchy airspace consolidation, left mid lung zone, right lower lung zone. The patient was admitted to telemetry unit. The patient was started o n IV steroids, also started on IV Lasix. The patient said that she has not been taking Lasix as she has been going to the son's parties. The patient was seen in pulmonary consultation with Dr. Lona liriano nd a cardiology consultation with Dr. Hall. Their recommendations were followed. The patient's L asix was up and down titrated. The patient's white count was 47.4 on admission. Respiratory and blo od culture came as positive for Streptococcus pneumonia. The patient was also seen by ID consultaticrystal foster. The patient was also started on ampicillin. The patient's condition was slowly improving in the hospital. She also had a chest x-ray that showed improvement. White count came down to 15.9. Insul in had been adjusted due to the blood sugars because the patient was on steroids. The patient was fe eling much better every day. Steroids have been tapered. Lasix had been tapered and currently, the patient is stable to be discharged home by all the consultants. Repeat blood cultures had been negat mindy. FINAL DISCHARGE DIAGNOSES: 1. Severe sepsis with acute hypoxia on admission. 2. Strep bacteremia secondary to pneumonia. 3. Shortness of breath secondary due to pneumonia/congestive heart failure/chronic obstructive pulmo nary disease. 4. Diabetes. 5. Morbid obesity. 6. Chronic atrial fibrillation. 7. Severe cardiomyopathy. 8. Hypertension. 9. Morbidly obese. 10. Abdominal pain secondary to abdominal wall hernia. 11. Leukocytosis, much improved on discharge. DISCHARGE CONDITION: Stable. DISCHARGE DIET: A 2-gram sodium, 1800 ADA. DISCHARGE MEDICATIONS: 1. Prednisone tapering. 2. Augmentin for 6 more days' course. 3. Lantus 30. 4. Metoprolol 12.5 b.i.d. 5. Eliquis 5 b.i.d. 6. Aspirin 81. 7. Atorvastatin 10. 8. Bisacodyl. 9. Digoxin. 10. Lasix 40 b.i.d. 11. Ibuprofen p.r.n. 12. Lantus 30. 13. Ipratropium and albuterol. 14. Lisinopril 2.5 mg. 15. Lorazepam p.r.n. anxiety. 16. Metformin 1000 with breakfast. 17. Protonix 40. 18. Seroquel 100. FOLLOWUP: The patient was instructed to follow up with PCP in 1 to 2 weeks. DISCHARGE INSTRUCTIONS: Avoid any sick contacts. Dictated By: ALEKSANDRA MOSS/DEENA Conf#: [id number] DID#: [id number] CC: GAGAN HALL MD;*[facility]*
--- NOTE | 2018-04-22 18:45 | NUR ---
DISCHARGE PT DISCHARGED HOME TODAY IN FAIR AND STABLE CONDITION. RX AND DISCHARGE INSTRUCTIONS PROVIDED, WELL VERBALIZED. TO FOLLOW UP WITH PRIMARY MD INSTRUCTED.
== END 2018-04-22 19:02 | disposition home or self-care (01) | DRG 871 ==
LOC: E/R 14:23 → TEL 16:15
PROVIDERS: ADMIT Internal Medicine; ATTEND Internal Medicine
PROC: 02H633Z Insertion of Infusion Device into Right Atrium, Percutaneous Approach (ICD-10-PCS; principal; 2018-04-15)
DX: A41.9 Sepsis, unspecified organism (principal); I50.43 Acute on chronic combined systolic (congestive) and diastolic (congestive) heart failure; J15.4 Pneumonia due to other streptococci; J44.0 Chronic obstructive pulmonary disease with (acute) lower respiratory infection; J44.1 Chronic obstructive pulmonary disease with (acute) exacerbation; Z68.43 Body mass index [BMI] 50.0-59.9, adult; J96.11 Chronic respiratory failure with hypoxia; I42.9 Cardiomyopathy, unspecified; R04.2 Hemoptysis; Z91.14 Patient's other noncompliance with medication regimen; R65.20 Severe sepsis without septic shock; I11.0 Hypertensive heart disease with heart failure; F31.9 Bipolar disorder, unspecified; Z87.891 Personal history of nicotine dependence; E66.01 Morbid (severe) obesity due to excess calories; E11.9 Type 2 diabetes mellitus without complications; K43.9 Ventral hernia without obstruction or gangrene; I48.2 Chronic atrial fibrillation; Z79.02 Long term (current) use of antithrombotics/antiplatelets; K59.00 Constipation, unspecified
CPT/HCPCS: 36415; 36569; 36600; 71045; 76937; 80048; 80053; 80162; 82550; 82553; 82803; 82947; 82962; 83690; 83735; 83880; 84100; 84484; 85025; 85610; 85730; 87040; 87070; 87081; 87400; 93005; 93306; 94640; 94644; 94660; 94664; C1769; C9113; J0295; J0692; J1170; J1815; J1940; J1956; J2920; J2930

== ENCOUNTER 2018-06-02 15:15 | Inpatient (IN) | payer BC ==
[~2018-06-02] VITALS: Ht 154.9 cm; Wt 133.4 kg
[~2018-06-02 15:15] MED LIST changes: +AMOX1TAB10 PO; -ISOS20TA19 PO; -LOSA50TA7 PO; -POTA20TA96 PO; -RIFA300C3 PO
[2018-06-02 15:17] VITALS: Ht 154.9 cm; Wt 133.4 kg
[2018-06-02] MEDS ORDERED: IPRATROPIUM (NEB) 0.5 MG/2.5 ML AMP INH STA (15:28)
[2018-06-02] MEDS ORDERED: ALBUTEROL 0.5% (NEB) 2.5 MG/0.5 ML AMP INH STA (15:28)
[2018-06-02] MEDS ORDERED: LISI-313 PO (15:57)
[2018-06-02] MEDS ORDERED: METO-335 PO (15:57)
[2018-06-02] MEDS ORDERED: INSU100I12 SQ (16:01)
[2018-06-02] MEDS ORDERED: LORAZEPAM 2 MG INJ IV ONE (18:00)
[2018-06-02] MEDS ORDERED: FENTAnyl 50 MCG/ML VIAL IV ONE ×2 (18:00→21:30)
[2018-06-02] MEDS ORDERED: METHYLPREDNISOLONE 125 MG INJ IV ONE (18:00)
[2018-06-02] MEDS ORDERED: ONDANSETRON 4 MG INJ IV PRN (19:00)
[2018-06-02] MEDS ORDERED: ACETAMINOPHEN 325 MG TAB PO PRN (19:00)
[2018-06-02] MEDS ORDERED: LEVOFLOXACIN 750MG/D5W (PMX) 150 ML IVPB ONE (21:00)
[2018-06-02] MEDS ORDERED: MAGNESIUM SULFATE 2 GM/50 ML 50 ML IVPB ONE (21:00)
--- NOTE | 2018-06-02 21:02 | ERD ---
ER Documentation Chief Complaint Chief Complaint SOb x 7 days HPI This is a 47-year-old female with a past medical history of hypertension, hyperlipidemia, diabetes, CHF, atrial fibrillation on digoxin and Eliquis, COPD, morbid obesity with a midline abdominal hernia status post repair, who is presenting with 7 days of progressive worsening shortness of breath, dyspnea on exertion, wheezing and a productive cough of clear sputum with significant chest congestion. The patient reports progressive worsening symptoms, which is what ultimately prompted her to come to the emergency department. The patient endorses chest tightness but no chest pain. She does not endorse diaphoresis. She has not had any lightheadedness or dizziness. She denies nausea or vomiting. She does not endorse fevers, but she has had chills at home. The patient has had no headache or vision changes. The patient does not endorse neck or back pain. The patient denies abdominal pain. The patient denies changes to bowel movements or urination. The patient has had no focal deficits. The patient has had no weakness or numbness or tingling to the face or extremities. ROS All systems reviewed and are negative except as per history of present illness. Medications Home Meds Active Scripts Pantoprazole* (Protonix*) 40 Mg Tablet.dr, 40 MG PO DAILY for 30 Days, TAB Prov:ALEKSANDRA SALCIDO MD 04/22/18 Apixaban* (Eliquis*) 5 Mg Tablet, 5 MG PO BID for 30 Days, TAB Prov:ALEKSANDRA SALCIDO MD 04/22/18 Digoxin* (Digitek*) 125 Mcg Tablet, 0.125 MG PO DAILY@13 for 30 Days, TAB Prov:ALEKSANDRA SALCIDO MD 04/22/18 Ipratropium-Albuterol (Ipratropium-Albuterol) 0.5-3 Mg/3 Ml Ampul.neb, 3 ML INHALATION Q4H PRN for WHEEZING AND SOB for 10 Days, #3 VIAL Prov:ALEKSANDRA SALCIDO MD 04/22/18 Furosemide* (Furosemide*) 40 Mg Tablet, 40 MG PO BID for 30 Days, TAB Prov:ALEKSANDRA SALCIDO MD 04/22/18 Lorazepam* (Ativan*) 0.5 Mg Tablet, 0.5 MG PO HS PRN for ANXIETY for 5 Days, #30 TAB Prov:ALEKSANDRA SALCIDO MD 04/22/18 Insulin Glargine,Hum.rec.anlog (Basaglar Kwikpen U-100) 100 Unit/1 Ml Insul n.pen, 30 UNIT SC QHS for 30 Days, EA Prov:ALEKSANDRA SALCIDO MD 04/22/18 Quetiapine Fumarate* (Seroquel*) 100 Mg Tablet, 100 MG PO DAILY, #30 TAB Prov:ALEKSANDRA SALCIDO MD 04/22/18 Metformin Hcl* (Metformin Hcl*) 1,000 Mg Tablet, 1000 MG PO WITH BREAKFAST DINNE for 30 Days, #60 TAB Prov:ALEKSANDRA SALCIDO MD 04/22/18 Docusate Sodium* (Colace*) 100 Mg Capsule, 100 MG PO Q12H for 30 Days, #60 CAP Prov:ALEKSANDRA SALCIDO MD 04/22/18 Atorvastatin Calcium (Atorvastatin Calcium) 10 Mg Tablet, 10 MG PO QHS for 30 Days, #30 TAB Prov:ALEKSANDRA SALCIDO MD 04/22/18 Aspirin* (Aspirin* EC) 81 Mg Tablet.dr, 81 MG PO DAILY for 30 Days, TAB Prov:ALEKSANDRA SALCIDO MD 04/22/18 Ibuprofen* (Motrin*) 600 Mg Tab, 600 MG PO Q6, #30 TAB Prov:NAIN KINGSLEY PA-C 02/16/18 Reported Medications Insulin Lispro (Humalog Kwikpen U-100) 100 Unit/1 Ml Insuln.pen, 0 SQ SLIDING SCALE, EA 06/02/18 Metoprolol Succinate* (Toprol XL*) 25 Mg Tab.sr.24h, 25 MG PO BID, #30 TAB 06/02/18 Lisinopril* (Lisinopril*) 5 Mg Tablet, 5 MG PO DAILY, #30 TAB 06/02/18 Bisacodyl* (Bisacodyl*) 5 Mg Tablet.dr, 5 MG PO DAILY PRN for NEEDED, TAB 01/28/18 Discontinued Scripts Amoxicillin/Potassium Clav (Amox-Clav 875-125 mg Tablet) 875-125 mg Tab, 1 TAB PO BID for 6 Days, #20 TAB Prov:ALEKSANDRA SALCIDO MD 04/22/18 Prednisone* (Prednisone*) 20 Mg Tab, 20 MG PO DAILY, #10 TAB Prov:ALEKSANDRA SALCIDO MD 04/22/18 Metoprolol Succinate* (Toprol XL*) 25 Mg Tab.sr.24h, 12.5 MG PO BID for 30 Days Prov:ALEKSANDRA SALCIDO MD 04/22/18 Hydrocodone/Acetaminophen ([place] 5-325 Tablet) 1 Each Tablet, 1 TAB PO Q6H PRN for PAIN for 3 Days, #20 TAB Prov:ALEKSANDRA SALCIDO MD 04/22/18 Lisinopril* (Lisinopril*) 5 Mg Tablet, 2.5 MG PO DAILY for 30 Days, TAB Prov:ALEKSANDRA SALCIDO MD 04/22/18 Allergies Allergies: Coded Allergies: morphine (Verified Allergy, Mild, 06/02/18) PMhx/Soc History of Surgery: Yes (cholesystectomy, c section x 1, hernia repair x 2) Anesthesia Reaction: No Hx Neurological Disorder: No Hx Respiratory Disorders: Yes (COPD, asthma) Hx Cardiac Disorders: Yes (Hypertension, hyperlipidemia, diabetes, CHF, atrial fibrillation) Hx Psychiatric Problems: Yes (Bipolar, anxiety) Hx Miscellaneous Medical Probl: No Hx Alcohol Use: No Hx Substance Use: Yes (crystal meth x 8 years) Hx Tobacco Use: Yes (february 2018 quit) Smoking Status: Former smoker FmHx Family History: diabetes Physical Exam Vitals Vital Signs Date Temp Pulse Resp B/P (MAP) Pulse Ox O2 O2 Flow FiO2 Time Delivery Rate 06/02/18 93 16 124/88 99 BIPAP 20:39 (100) 06/02/18 99 99 35 19:31 06/02/18 112 99 35 18:50 06/02/18 105 27 130/89 98 Nasal 18:37 (103) Cannula 06/02/18 102 18 157/115 100 Nasal 2.0 18:09 (129) Cannula 06/02/18 104 21 143/93 100 Mask 16:13 (110) 06/02/18 100 20 94 21 15:35 06/02/18 110 25 156/97 100 Mask 15:27 (116) 06/02/18 98.5 113 33 155/93 90 15:17 (113) Physical Exam Const: No apparent distress, well-developed, well-nourished Head: Normocephalic, Atraumatic Eyes: Normal Conjunctiva. Extraocular movements intact. Pupils equal, round and reactive to light ENT: Normal External Ears, Nose and Mouth. Neck: Full range of motion. No meningismus. Resp: Moderate respiratory distress. Diffuse wheezes and coarse breath sounds. Dyspneic, only able to speak in 2-3 word sentences per Cardio: Regular rhythm. Tachycardia. No murmurs, rubs or gallops Abd: Morbid obesity. Reducible periumbilical hernia. Otherwise soft, non tender, non distended. Normal bowel sounds Skin: No petechiae or rashes Back: No midline tenderness. No CVA tenderness Ext: No cyanosis, or edema Neur: Awake and alert, oriented 4. Cranial nerves intact. No facial droop. Normal strength, sensation and coordination. Psych: Normal Mood and Affect Result Diagram: 06/02/18 1530 06/02/18 1530 Results 24 hrs Laboratory Tests Test 06/02/18 15:30 06/02/18 15:38 06/02/18 17:15 06/02/18 19:41 White Blood 9.3 10^3/ul Count Red Blood Count 4.31 10^6/ul Hemoglobin 12.8 g/dl Hematocrit 42.5 % Mean Corpuscular 98.6 fl Volume Mean Corpuscular 29.7 pg Hemoglobin Mean Corpuscular 30.1 g/dl Hemoglobin Belén nt Red Cell 14.1 % Distribution Width Platelet Count 243 10^3/UL Mean Platelet 11.4 fl Volume Immature 0.300 % Granulocytes % Neutrophils % 67.5 % Lymphocytes % 24.3 % Monocytes % 6.1 % Eosinophils % 1.2 % Basophils % 0.6 % Nucleated Red 0.0 /100WBC Blood Cells % Immature 0.030 10^3/ul Granulocytes # Neutrophils # 6.3 10^3/ul Lymphocytes # 2.3 10^3/ul Monocytes # 0.6 10^3/ul Eosinophils # 0.1 10^3/ul Basophils # 0.1 10^3/ul Nucleated Red 0.0 10^3/ul Blood Cells # Prothrombin Time 12.4 Sec Prothrombin Time 1.0 Ratio INR 0.91 International Normalized Ratio Sodium Level 140 mmol/L Potassium Level 4.3 mmol/L Chloride Level 96 mmol/L Carbon Dioxide 42 mmol/L Level Anion Gap 2 Blood Urea 13 mg/dl Nitrogen Creatinine 0.58 mg/dl Est Glomerular > 60 mL/min Filtrat Rate mL/min Glucose Level 262 mg/dl Calcium Level 9.3 mg/dl Troponin I < 0.012 ng/ml B-Type 1380 PG/ML Natriuretic Peptide POC Venous 1.6 mmol/L Lactate Blood Gas Blood arterial Specimen Source Arterial Blood 06/02/2018 5:46: Date Drawn 09 PM Arterial Blood 7.314 pH (Temp corrected) Arterial Blood 67.4 mmhg pCO2 (Temp correct) Arterial Blood 79.9 mmHG pO2 (Temp corrected) Arterial Blood 33.5 mmol/L HCO3 Arterial Blood 5.1 mmol/L Base Excess Arterial Blood 94.1 mmHG Oxygen Saturatio n Justice Test ACCEPTAB Arterial Blood Right Radial Gas Puncture Site Arterial 1.0 % Blood Carboxyhem oglobin Arterial Blood 0.3 % Methemoglobin Blood Gas A-a O2 54.8 mmHg Differential Oxyhemoglobin 92.9 % Percent Blood Gas 37.0 C Temperature Blood Gas NASAL CANNULA Modality FiO2 30.0 % Blood Gas MDA Notified Whom Blood Gas 06/02/2018 5:50: Notified Time 36 PM Lactic Acid 2.5 mmol/L Level Test 06/02/18 20:15 Blood Gas Blood arterial Specimen Source Arterial Blood 06/02/2018 8:20: Date Drawn 49 PM Arterial Blood 7.395 pH (Temp corrected) Arterial Blood 68.3 mmhg pCO2 (Temp correct) Arterial Blood 62.6 mmHG pO2 (Temp corrected) Arterial Blood 40.9 mmol/L HCO3 Arterial Blood 12.9 mmol/L Base Excess Arterial Blood 91.5 mmHG Oxygen Saturatio n Justice Test ACCEPTAB Arterial Blood Right Radial Gas Puncture Site Arterial 0.8 % Blood Carboxyhem oglobin Arterial Blood 0.4 % Methemoglobin Blood Gas A-a O2 107.6 mmHg Differential Oxyhemoglobin 90.4 % Percent Blood Gas 37.0 C Temperature Blood Gas 16.0 Respiration Rate Blood Gas Actual 19 Respiration Rate Blood Gas MASK - BIPAP Modality FiO2 35.0 % Blood Gas 14/5 IPAP/EPAP Ratio Blood Gas Ronnie OLIVERA MD Critical Value Read Back Blood Gas MR Notified Whom Blood Gas 06/02/2018 8:36: Notified Time 21 PM Current Medications Medications Dose Sig/Eugenio Start Time Status Last (Trade) Ordered Route PRN Stop Time Admin Dose Reason Admin Ipratropium 1.5 mg ONCE STAT 06/02/18 DC 06/02/18 [place] INH 15:28 15:40 (Atrovent 06/02/18 15:29 0.02% (Neb)) Albuterol 15 mg ONCE STAT 06/02/18 DC 06/02/18 (Proventil INH 15:28 15:40 0.5% (Neb)) 06/02/18 15:29 Lorazepam 0.5 mg ONCE ONCE 06/02/18 DC 06/02/18 (Ativan) IV 18:00 18:06 06/02/18 18:01 Fentanyl 50 mcg ONCE ONCE 06/02/18 DC 06/02/18 (Sublimaze) IV 18:00 18:06 06/02/18 18:01 125 mg ONCE ONCE 06/02/18 DC 06/02/18 Methylprednis IV 18:00 18:04 olone Sodium 06/02/18 18:01 Succinate (Solu-Medrol) Ondansetron 4 mg ER BRIDGE 06/02/18 HCl (Zofran PRN IV 19:00 Inj) NAUSEA/VOMITI 06/03/18 18:59 NG 650 mg ER BRIDGE 06/02/18 Acetaminophen PRN PO 19:00 (Tylenol .MILD PAIN 06/03/18 18:59 Tab) 1-3 OR TEMP Procedures/MDM MDM The patient's presentation warrants further investigation. Previous medical records, if available, were reviewed. LABS The patient's laboratory testing was obtained and reviewed. No emergent treatment was required unless described below. CBC: No E/o of systemic infection or severe anemia or thrombocytopenia BMP: No E/o severe acidosis or renal failure. Hyperglycemia without DKA. Significant metabolic alkalosis, likely compensatory to respiratory acidosis from her significant COPD. PT/INR: No E/o significant coagulopathy Lactate: Initially within normal evidence but increased in the emergency department. Troponin: No E/o acute ischemia BNP: E/o heart failure EKG EKG read by me: Rate/Rhythm: Sinus tachycardia at 120 bpm Intervals: Normal Vera: Right axis deviation Impression: No evidence of acute ischemia or arrhythmia IMAGING Imaging and Radiology interpretation reviewed. CXR FINDINGS: There is moderate cardiomegaly. There is moderate pulmonary vascular congestion. There are bilateral perihilar and lower lobe increased interstitial changes. There are small bilateral pleural effusions. There is no pneumothorax. IMPRESSION: Moderate cardiomegaly with pulmonary vascular congestion. Electronically viewed and signed by .Michael Richard MD, MD on 06/02/2018 15:48 TREATMENT/DISPOSITION The patient presents with symptoms most consistent with a COPD exacerbation. She has a significant metabolic alkalosis which is likely compensatory to respiratory acidosis from COPD. The patient was started on nebulized albuterol and ipratropium in the emergency department with some improvement of her symptoms, but she remained quite wheezy even after an hour of therapy. The robert ent was also provided IV Solu-Medrol and was later given a dose of magnesium. The patient was ultimately started on BiPAP in the emergency department. I had decreased suspicion for sepsis when she first arrived. The patient's initial lactic acid was within normal limits, and I do have higher suspicion for a viral syndrome over a bacterial infection. That said, the patient's lactic acid was checked several hours later and found to be elevated at 2.5. Given the duration of symptoms, a bacterial infection is certainly a possibility as the source of her respiratory distress. I did opt to provide the patient with Levaquin in the emergency department. The patient also has evidence of conges tive heart failure, and I am concerned about her tenuous fluid balance. I do not intend to initiate a 30 mL/kg bolus of IV fluids at this time as I feel that it would likely make her overall presentation worse. The patient may actually benefit from diuresis in the hospital, but this was not immediately initiated in the ER. The patient's EKG revealed tachycardia but no concerning ischemic changes. The patient's troponin is negative. I low suspicion for acute coronary syndrome. The patient's chest xray does not reveal pneumonia or pneumothorax or pleural effusions. She does not have a widened mediastinum and does not have signs or symptoms concerning for thoracic aortic aneurysm or dissection. The patient does not have pneumomediastinum or signs concerning for esophageal tear or rupture. The patient has no clinical or radiographic signs of pericardial effusion or tamponade. The patient does not have pneumoperitoneum and I have decreased suspicion of viscus perforation as possible referred pain. I have decreased suspicion for PE. SEPSIS NOTE SIRS Criteria: Tachycardia, tachypnea Infectious source: Respiratory End organ damage indicated by: Lactate > 2.0 mmol/L, AHRF Sat < 92% without oxygen SEPSIS MANAGEMENT Time to recognize sepsis: 1940 Time to recognize severe sepsis: 1940. Time to recognize septic shock: No septic shock at this time. 3 HOUR BUNDLE Blood cultures x 2 before abx: Yes 30 ml/kg NS bolus not completed due to tenuous fluid balance and likely CHF Initial lactate 1.6 Repeat lactate 2.5 SEPTIC SHOCK ASSESSMENT: NO lactic acid > 4.0 NO persistent hypotension (SBP < 90 or 40 mmHg drop, MAP < 65) despite 30 L/kg IV fluid bolus CRITICAL CARE Critical care time 35 minutes Emergent fluid management while maintaining close respiratory support. Provision of immediate and broad-spectrum antibiotic therapy. Simultaneous assessment for possible sources in order to direct targeted therapy. Consideration for invasive and chemical support to prevent cardiopulmonary collapse. Critical care time is independent of procedures performed. The patient will be admitted to Dr. Salcido in accordance with the patient's insurance. The patient was accepted to telemetry at 1857 on 06/02/2018. Disclaimer: Inadvertent spelling and grammatical errors are likely due to EHR/dictation software use and do not reflect on the overall quality of patient care. Note that the electronic time recorded on this note does not necessarily reflect the actual time of the patient encounter. Departure Diagnosis: Primary Impression: COPD with acute exacerbation Additional Impressions: Shortness of breath Wheezing Tachycardia Tachypnea Lactic acidosis Metabolic alkalosis with respiratory acidosis CHF (congestive heart failure) Heart failure type: unspecified Heart failure chronicity: acute on chronic Qualified Codes: I50.9 - Heart failure, unspecified Elevated brain natriuretic peptide (BNP) level Hyperglycemia Hypoxemia Condition: Serious LUIS OLIVERA MD Jun 02, 2018 21:00
[2018-06-02 22:02] VITALS: PULSE 99
[2018-06-02 22:15] VITALS: BP 134/77; PULSE 95; RESP 18
[2018-06-03] VITALS (14 sets, daily range): BP systolic 120–141; BP diastolic 65–85; PULSE 83–105; RESP 18–20
[2018-06-03] MEDS ORDERED: LORAZEPAM 0.5 MG TAB PO ONE
[2018-06-03] MEDS ORDERED: ALBUTEROL/IPRATROPIUM (NEB) 3 ML AMP HHN PRN
[2018-06-03] MEDS ORDERED: ONDANSETRON 4 MG INJ IV PRN
[2018-06-03] MEDS ORDERED: GLUCAGON 1 MG INJ IM PRN (01:00)
[2018-06-03] MEDS ORDERED: DEXTROSE 50% 50 ML SYRINGE IV PRN ×2 (01:00)
[2018-06-03] MEDS ORDERED: GLUCOSE GEL 15 GRAM TUBE PO PRN ×2 (01:00)
[2018-06-03] MEDS ORDERED: GLUCOSE GEL 15 GRAM TUBE BUCCAL PRN (01:00)
[2018-06-03] MEDS: ALBUTEROL/IPRATROPIUM (NEB) 3 ML AMP HHN SCH ×6 (01:41→20:35)
[2018-06-03] MEDS: ACCU-CHEK XX SCH (02:23)
[2018-06-03] MEDS ORDERED: INSULIN GLARGINE [LANTus] (100 UNITS/ML) SYG SC ONE (03:30)
[2018-06-03] MEDS ORDERED: INSULIN ASPART [NOVOLOG] 3 ML PEN SC ONE (03:30)
[2018-06-03] MEDS: GUAIFENESIN/DM 5ML CUP PO PRN (04:40)
[2018-06-03] MEDS: PANTOPRAZOLE (EC) 40 MG TAB PO SCH (05:52)
[2018-06-03] MEDS ORDERED: LEVOFLOXACIN 500 MG TAB PO SCH (06:00)
[2018-06-03] MEDS ORDERED: METHYLPREDNISOLONE 40 MG INJ IV SCH (06:00)
[2018-06-03] MEDS ORDERED: NPH, HUMAN INSULIN ISOPHANE 3ML VIAL SC SCH (08:00)
[2018-06-03] MEDS: NPH, HUMAN INSULIN ISOPHANE 3ML VIAL SC SCH ×3 (08:41→21:58)
[2018-06-03] MEDS: INSULIN ASPART [NOVOLOG] 3 ML PEN SC SCH ×4 (08:44→21:40)
[2018-06-03] MEDS ORDERED: FUROSEMIDE 40 MG INJ IV SCH (09:00)
[2018-06-03] MEDS: APIXABAN 5 MG TABLET PO SCH ×2 (09:36→20:52)
[2018-06-03] MEDS: DOCUSATE SODIUM 100 MG CAP PO SCH ×2 (09:36→20:52)
[2018-06-03] MEDS: ASPIRIN 81 MG TAB PO SCH (09:36)
[2018-06-03] MEDS: LISINOPRIL 5 MG TAB PO SCH (09:36)
[2018-06-03] MEDS: METHYLPREDNISOLONE 40 MG INJ IV SCH ×3 (10:05→21:50)
--- NOTE | 2018-06-03 12:42 | QN ---
Documentation Comment SEEN AND EXAMINED ALEKSANDRA SALCIDO MD Jun 03, 2018 12:42
[2018-06-03] MEDS: HYDROmorphONE 0.5 MG/0.5 ML SYG IV PRN ×2 (13:53→20:55)
--- NOTE | 2018-06-03 13:59 | HP ---
DATE OF ADMISSION: 06/02/2018 CHIEF COMPLAINT: Shortness of breath and cough. HISTORY OF PRESENTING ILLNESS: This is a 47-year-old female with a past medical history of diabetes, hypertension, morbid obesity, hyperlipidemia, systolic congestive heart failure, EF of 25% to 30%, p sychiatric disorder, abdominal pain secondary to abdominal wall hernia, AFib, admitted to [facility] with multiple admissions last in 03/2018, presented to the emergency department com plaining of shortness of breath and cough for past 2 to 3 weeks. According to the patient, she was h aving a cough for the last 2 to 3 weeks. She was taking her nebulizers at home. Today, she was tryi ng to go to her car. All of a sudden, she felt very short of breath and started having left-sided ch est pain and that prompted her to come to the emergency department. She does not endorse diaphoresis . Denies any dizziness. Denies any nausea, vomiting. She was having some chills at home. Denies a ny fevers. According to the patient, she had been taking her Lasix and has been compliant with her d iet. On arrival to ED, vital signs showed a temperature of 98.5, heart rate 113, respirations 33, bl ood pressure 155/90, saturating 90%, was put on mask and then put on BiPAP. White count 9.3, hemoglo bin 12.8, BUN of 13, creatinine 0.8, bicarbonate of 42. The patient was in moderate respiratory dist ress, diffuse wheezes and coarse breath sounds. EKG showed sinus tachycardia, no evidence of acute i schemia. Chest x-ray showed moderate pulmonary vascular congestion. The patient was put on BiPAP. She was given albuterol, Atrovent and some Solu-Medrol and magnesium and was admitted for further man agement. PAST MEDICAL HISTORY: 1. Diabetes. 2. Hypertension. 3. Hyperlipidemia. 4. Hypercholesterolemia. 5. History of chronic AFib. 6. Morbid obesity. 7. Abdominal wall hernia. 8. History of CHF, systolic, with EF of 25% to 30%. ALLERGIES: MORPHINE. PAST SURGICAL HISTORY: None. SOCIAL HISTORY: Former smoker. Denies any history of recreational drug use. Lives with the kids at home. FAMILY HISTORY: No history of cardiac disease in the family. REVIEW OF SYSTEMS: The patient complained of shortness of breath and productive cough for the past 2 weeks worsening today, also has had some left-sided chest pain. The patient has some chronic abdomi nal pain. Denied any nausea, vomiting, diarrhea, hematemesis, any melena, any bright red blood per r ectum. Denied any focal neurological deficits. PHYSICAL EXAMINATION: VITAL SIGNS: Currently, blood pressure 106/63, heart rate 91, afebrile, respirations 20, saturating 100%, currently on 4 liters of oxygen. GENERAL: The patient is awake, alert, oriented, does not appear to be in any acute distress, able to speak full sentences. HEENT: Pupils are equal, round, reactive to light. NECK: No JVD appreciated. LUNGS: Diffuse scattered crackles and rhonchi bilaterally. ABDOMEN: Soft, nontender. The patient has an umbilical hernia in place which is reducible. Positiv e bowel sounds. EXTREMITIES: 1+ edema. NEUROLOGIC: Nonfocal. LABORATORY DATA: Sodium 138, potassium 4.8, chloride 93, bicarbonate 36, BUN of 12, creatinine 0.7. BNP of 1380. Troponin was negative. White count 9.3, hemoglobin 12.8, platelet count 243. First i nitial ABG showed pH of 7.314, pO2 of 67, bicarbonate of 33. INR of 0.91. DIAGNOSTIC DATA: Chest x-ray showed bilateral infiltrates and pulmonary congestion. ASSESSMENT AND PLAN: This is a 47-year-old female presenting with: 1. Shortness of breath, cough, likely secondary to chronic obstructive pulmonary disease/congestive heart failure exacerbation. 2. Chest pain, rule out acute coronary syndrome. 3. Metabolic alkalosis. 4. Diabetes, uncontrolled. 5. Hypertension. 6. History of congestive heart failure with ejection fraction of 25% to 30%. 7. History of chronic atrial fibrillation. 8. Morbid obesity. 9. Abdominal wall hernia. PLAN: At this point of time, the patient is admitted to [facility]. We will do strict I's and O's, daily weights. The patient will be on IV Lasix, nebs round the clock, IV steroids, IV antibiotics. Dr. Maria Isabel russ consultation has been requested and Dr. Hall consultation has been requested. Rest of the t reatment will depend on the patient's hospitalization course. Dictated By: ALEKSANDRA MOSS/DEENA Conf#: [id number] DID#: [id number] CC: SLOANE FRASER MD;*[facility]*
[2018-06-03] MEDS ORDERED: ACETAZOLAMIDE 500 MG INJ IV ONE (14:00)
[2018-06-03] MEDS: DIGOXIN 0.125 MG TAB PO SCH (14:20)
--- NOTE | 2018-06-03 17:29 | CONS ---
DATE OF ADMISSION: 06/02/2018 DATE OF CONSULTATION: TYPE OF CONSULTATION: Pulmonary. REASON FOR CONSULTATION: Shortness of breath. Thank you, Dr. Martinez, for this consultation. HISTORY OF PRESENT ILLNESS: This is a 47-year-old lady seen by myself in the past with a history of asthma, comes in with several-day history of increasing shortness of breath, orthopnea, PND, occasion al chest discomfort, but no hemoptysis or hematemesis. In addition, she has congestive cardiac failu re with systolic dysfunction and ejection fraction of 20% to 30% with underlying psych disorder. She states she has had no benefit from maintenance inhalers only uses albuterol rescue inhaler at home. PAST MEDICAL HISTORY: Diabetes, hypertension, hyperlipidemia, morbid obesity, systolic dysfunction w ith decreased ejection fraction. ALLERGIES: MORPHINE. SOCIAL HISTORY: Ex-smoker, no alcohol, no history of drug use. FAMILY HISTORY: Noncontributory. SYSTEMS REVIEW: A 12-point review of systems was negative other than that mentioned above. PHYSICAL EXAMINATION: GENERAL: Well-nourished, well-developed lady, comfortable at rest, talking in full and complete sent ences. VITAL SIGNS: Currently afebrile, pulse is 90, blood pressure 135/65, O2 saturation 96% on 4 liters. NECK: Supple. No JVD or lymphadenopathy. CARDIAC: S1, S2, no added sounds or murmurs. CHEST: Diminished air entry bilaterally with expiratory wheezes. ABDOMEN: Soft, nontender, obese. EXTREMITIES: No cyanosis, clubbing, 1+ edema. NEUROLOGIC: Grossly intact. No focal deficits. LABORATORY DATA: White count 9.4, hemoglobin 12.2. Chemistry within normal limits and elevated gluc ose. BNP elevated at 1380. DIAGNOSTIC DATA: Chest x-ray was reviewed, showed mild cardiomegaly with increased vascular congesti on. IMPRESSION AND PLAN: Dyspnea, likely secondary to combination: 1. Congestive heart failure. 2. Likely asthmatic bronchitis. 3. Probable underlying obstructive sleep apnea. The patient will require: 1. Gentle diuresis. 2. Continue bronchodilator treatment. 3. Short steroid taper. 4. DVT and GI prophylaxis. Dictated By: SLOANE HAYNES/DEENA Conf#: [id number] DID#: [id number]
[2018-06-03] MEDS: FUROSEMIDE 40 MG INJ IV SCH (18:00)
[2018-06-03] MEDS ORDERED: INSULIN GLARGINE [LANTus] (100 UNITS/ML) SYG SC SCH (20:00)
[2018-06-03] MEDS: ATORVASTATIN 10 MG TAB PO SCH (20:52)
[2018-06-03] MEDS: METOPROLOL (XL) 25 MG TAB PO SCH (20:53)
[2018-06-03] MEDS ORDERED: ATORVASTATIN 10 MG TAB GTB SCH (21:00)
[2018-06-03] MEDS: INSULIN GLARGINE [LANTus] (100 UNITS/ML) SYG SC SCH (21:40)
[2018-06-04] VITALS (10 sets, daily range): BP systolic 110–149; BP diastolic 74–93; PULSE 76–100; RESP 18–22
[2018-06-04] MEDS: ALBUTEROL/IPRATROPIUM (NEB) 3 ML AMP HHN SCH ×6 (00:01→20:36)
[2018-06-04] MEDS: ACCU-CHEK XX SCH (02:53)
[2018-06-04] MEDS ORDERED: INSULIN ASPART [NOVOLOG] 3 ML PEN SC ONE (03:30)
[2018-06-04] MEDS: HYDROmorphONE 0.5 MG/0.5 ML SYG IV PRN ×3 (05:09→16:52)
[2018-06-04] MEDS: METHYLPREDNISOLONE 40 MG INJ IV SCH ×3 (05:10→20:45)
[2018-06-04] MEDS: PANTOPRAZOLE (EC) 40 MG TAB PO SCH (05:11)
[2018-06-04] MEDS: LEVOFLOXACIN 750MG/D5W (PMX) 150 ML IVPB SCH (05:12)
[2018-06-04] MEDS: NPH, HUMAN INSULIN ISOPHANE 3ML VIAL SC SCH ×3 (05:18→21:01)
[2018-06-04] MEDS: INSULIN ASPART [NOVOLOG] 3 ML PEN SC SCH ×4 (07:15→21:00)
--- NOTE | 2018-06-04 07:42 | CONS ---
DATE OF ADMISSION: 06/02/2018 DATE OF CONSULTATION: 06/03/2018 TYPE OF CONSULTATION: Cardiology. REASON FOR CONSULTATION: Congestive heart failure exacerbation. REQUESTING PHYSICIAN: Altagracia Durant MD HISTORY OF PRESENT ILLNESS: Ms. Beckett is a 47-year-old female who due to multiple prior h ospital admissions, history of cardiomyopathy, decreased left ventricular ejection fraction, last doc umented at 25% in 03/2018. Chronic obstructive pulmonary disease, ongoing tobacco use, atrial flutter, dyslipidemia, hypertension who presents with complaints of worsening shortness of breath. U kash arrival, temperature of 98.5, blood pressure 155/93, pulse 113, respiratory 33, saturating 90%. The patient's labs were notable for a white count 9.3, hemoglobin 12.8, a platelet count of 243. Sod ium of 140, potassium 4.3, creatinine of 0.58, BUN 13. Troponin negative. BNP of 1380. INR 0.01. ABG revealing a pH of 7.3, a PaO2 of 79, a pCO2 of 67. Patient's chest x-ray, moderate cardiomegaly with pulmonary vascular congestion. The patient's electrocardiogram revealed sinus tachycardia to 12 0, with right axis deviation, poor R-wave progression and precordial leads, anteroseptal Q's, nonspec ific ST-T abnormalities. The patient was subsequently admitted to the floor and since admit to the [facility], monitored on telemetry revealing mainly sinus rhythm in 80s and 90s. The patient denies chest pain, has ongoing shortness of breath. PAST MEDICAL HISTORY: As above in HPI. MEDICATIONS CURRENTLY IN HOSPITAL: 1. Levofloxacin. 2. Lipitor 20 mg at bedtime. 3. Lantus. 4. Lasix IV b.i.d. 5. Diamox. 6. Dilaudid. 7. Digoxin 0.125 mg daily. 8. Eliquis 5 mg p.o. b.i.d. 9. Aspirin 81 mg daily. 10. Colace mg b.i.d. 11. Lisinopril 5 mg daily. 12. Solu-Medrol 40 mg IV q.8h. 13. Protonix. ALLERGIES: MORPHINE. SOCIAL HISTORY: Positive tobacco, social ETOH, no illicit drug use. FAMILY HISTORY: No sudden cardiac or early CAD. REVIEW OF SYSTEMS: As above in HPI. CONSTITUTIONAL: No fevers, chills. PULMONARY: Shortness of breath. CARDIOVASCULAR: Congestive heart failure, COPD. GASTROINTESTINAL: No vomiting. GENITOURINARY: No hematuria. MUSCULOSKELETAL: Degenerative joint disease. PSYCHIATRIC: No documented psych history. NEUROLOGIC: No documented history of CVA. ENDOCRINE: Diabetes mellitus. PHYSICAL EXAMINATION: VITAL SIGNS: Temperature 98.2, blood 136/76, pulse 83, respiratory rate is 18, sat 96%. GENERAL: The patient is alert, awake, complaining of shortness of breath. NECK: JVP approximately 9 cm of water. CHEST: Decreased air movement throughout. HEART: Regular rate and rhythm. Normal S1, increased S2, I/ systolic murmur, nondisplaced PMI. ABDOMEN: Positive bowel sounds, obese, soft. EXTREMITIES: Trace edema, 1+ pulses bilateral posterior tibial. LABORATORY DATA: Most recently from today ABG revealing a pH of 7.343, a PaO2 of 90, pCO2 of 74. Wh ite blood cell count 9.4 12.2, platelet count 238. Sodium 138, potassium 4.6, creatinine 0.57, BUN 1 2. IMAGING STUDIES: As above in HPI. No further imaging studies for my review at this time. ECG: As above in HPI. No further electrograms for my review at this time. IMPRESSION: 1. Congestive heart failure exacerbation, systolic, acute on chronic. 2. Cardiomyopathy with decreased left ventricular ejection fraction approximately 25% by echo 8. 3. Hypertension, under reasonable control. 4. Dyslipidemia. 5. Chronic obstructive pulmonary disease exacerbation. 6. Positive tobacco. 7. History of paroxysmal atrial fibrillation, atrial flutter on anticoagulation in sinus rhythm at t his time. 8. Diabetes mellitus. RECOMMENDATIONS: 1. At this time, would maintain the patient on telemetry monitoring to follow rhythm and rate contro l closely. 2. Continue the patient's current MAO inhibitor and will resume the patient's baseline beta rianna, treatment of cardiomyopathy, maintain patient on telemetry monitoring to follow rhythm and rate cont rol closely. 3. Would complete a rule out for myocardial infarction to ensure the patient's does not result in acute coronary syndrome, acute myocardial infarction. 4. Continue the patient's antihypertensives at this time with Procardia, metoprolol at this time with Zestril afterload reduction and would resume the patient on her b aseline beta rianna, possibly held in the setting of acute chronic obstructive pulmonary disease exa cerbation. 5. We will continue the patient's digoxin and Eliquis for prevention of thromboembolic complications and atrial fibrillation. At this time we will continue patient's baby aspirin and follow for any bl eeding complications and follow the patient's blood sugars on insulin. 6. I will continue the patient antibiotics, bronchodilators, and continue the patient's steroids. W ill additionally continue the patient's Lasix diuresis, following strict I's and O's, creatinine to g rade diuresis closely. Thank you for allowing me to take part in the care of this patient. I will continue to follow very c losely with you with recommendations to be made as the patient progresses through the patient's hospi steffany clinical course. Dictated By: GAGAN KENNEDY/DEENA Conf#: [id number] DID#: [id number] CC: ALTAGRACIA DURANT;*EndCC*
[2018-06-04] MEDS: FUROSEMIDE 40 MG INJ IV SCH ×2 (07:57→18:00)
[2018-06-04] MEDS: ASPIRIN 81 MG TAB PO SCH (07:57)
[2018-06-04] MEDS: LISINOPRIL 5 MG TAB PO SCH (07:57)
[2018-06-04] MEDS: APIXABAN 5 MG TABLET PO SCH ×2 (07:57→20:34)
[2018-06-04] MEDS: DOCUSATE SODIUM 100 MG CAP PO SCH ×2 (07:58→20:33)
[2018-06-04] MEDS: METOPROLOL (XL) 25 MG TAB PO SCH ×2 (07:58→20:34)
[2018-06-04] MEDS ORDERED: VITAMIN A & D 5 GM OINT PACKET TOP ONE (10:10)
--- NOTE | 2018-06-04 11:28 | CONS ---
Consult Date/Type/Reason Admit Date/Time Jun 02, 2018 at 21:00 Initial Consult Date Type of Consult Pulmonary Date/Time of Note DATE: 06/04/18 TIME: 11:27 Subjective Little better today Objective Vital Signs Date Temp Pulse Resp B/P (MAP) Pulse Ox O2 O2 Flow FiO2 Time Delivery Rate 06/04/18 97 3.0 10:03 06/04/18 102 20 Nasal 10:01 Cannula 06/04/18 97.8 131/80 07:16 (97) 06/03/18 28 17:19 Intake and Output 06/03/18 06/03/18 06/04/18 1414:59 22:59 06:59 IntakeIntake Total 1600 ml 600 ml BalanceBalance 1600 ml 600 ml Exam PHYSICAL EXAMINATION: GENERAL: Well-nourished, well-developed lady, comfortable at rest, talking in full and complete sentences. VITAL SIGNS: NECK: Supple. No JVD or lymphadenopathy. CARDIAC: S1, S2, no added sounds or murmurs. CHEST: Diminished air entry bilaterally with expiratory wheezes. ABDOMEN: Soft, nontender, obese. EXTREMITIES: No cyanosis, clubbing, 1+ edema. NEUROLOGIC: Grossly intact. No focal deficits. Vent Setting Fraction of Inspired Oxygen pe: 28 Results/Medications Result Diagram: 06/03/18 0501 06/03/18 0501 Results 24 hrs Laboratory Tests Test 06/03/18 12:09 06/03/18 13:51 06/03/18 17:10 06/03/18 20:50 Bedside Glucose 205 365 H 335 H Troponin I < 0.012 Test 06/04/18 02:51 06/04/18 05:09 06/04/18 07:13 Bedside Glucose 314 H 238 H Triglycerides Level 58 Cholesterol Level 158 LDL Cholesterol, 95 Calculated HDL Cholesterol 51 Cholesterol/HDL 3.0 Ratio Medications Current Medications Apixaban (Eliquis) 5 mg BID PO Last administered on 06/04/18at 07:57; Admin Dose 5 MG; Start 06/03/18 at 09:00 Albuterol/ Ipratropium (Duoneb) 3 ml Q4H RESP THERAPY HHN Last administered on 06/04/18at 09:58; Admin Dose 3 ML; Start 06/03/18 at 01:00 Albuterol/ Ipratropium (Duoneb) 3 ml Q2H RESP THERAPY PRN HHN SHORTNESS OF BREATH; Start 06/03/18 at 00:00 Pantoprazole (Protonix Tab) 40 mg DAILY@06 PO Last administered on 06/04/18 05:11; Admin Dose 40 MG; Start 06/03/18 at 06:00 Ondansetron HCl (Zofran Inj) 4 mg Q4H PRN IV NAUSEA AND/OR VOMITING; Start 06/03/18 at 00:00 Acetaminophen (Tylenol Tab) 650 mg Q4H PRN PO MILD PAIN(1-3)OR ELEVATED TEMP; Start 06/03/18 at 00:00 Aspirin (Aspirin) 81 mg DAILY PO Last administered on 06/04/18 07:57; Admin Dose 81 MG; Start 06/03/18 at 09:00 Docusate Sodium (Colace) 100 mg BID PO Last administered on 06/03/18 20:52; Admin Dose 100 MG; Start 06/03/18 at 09:00 Digoxin (Digoxin) 0.125 mg DAILY@13 PO Last administered on 06/03/18 14:20; Admin Dose 0.125 MG; Start 06/03/18 at 13:00 Bisacodyl (Dulcolax) 5 mg DAILY PRN PO CONSTIPATION; Start 06/03/18 at 00:00 Lisinopril (Zestril) 5 mg DAILY PO Last administered on 06/04/18 07:57; Admin Dose 5 MG; Start 06/03/18 at 09:00 Diagnostic Test (Pha) (Accu-Chek) 1 ea 02 XX Last administered on 06/04/18 02:53; Admin Dose 1 EA; Start 06/03/18 at 02:00 Insulin Glargine (Lantus) 30 units DAILY@2000 SC Last administered on 06/03/18 21:40; Admin Dose 30 UNITS; Start 06/03/18 at 20:00 Insulin Aspart (Novolog Insulin Pen) NOVOLOG *MILD* ALGORITHM WITH MEALS BEDTIME SC Last administered on 06/04/18 07:15; Admin Dose 3 UNIT; Start 06/03/18 at 08:00 Miscellaneous Information 1 ea NOTE XX ; Start 06/03/18 at 01:00 Glucose (Glutose) 15 gm Q15M PRN PO DECREASED GLUCOSE; Start 06/03/18 at 01:00 Glucose (Glutose) 22.5 gm Q15M PRN PO DECREASED GLUCOSE; Start 06/03/18 at 01:00 Dextrose (D50w Syringe) 25 ml Q15M PRN IV DECREASED GLUCOSE; Start 06/03/18 at 01:00 Dextrose (D50w Syringe) 50 ml Q15M PRN IV DECREASED GLUCOSE; Start 06/03/18 at 01:00 Glucagon (Glucagen) 1 mg Q15M PRN IM DECREASED GLUCOSE; Start 06/03/18 at 01:00 Glucose (Glutose) 15 gm Q15M PRN BUCCAL DECREASED GLUCOSE; Start 06/03/18 at 01:00 Methylprednisolone Sodium Succinate (Solu-Medrol) 40 mg Q8 IV Last administered on 06/04/18at 05:10; Admin Dose 40 MG; Start 06/03/18 at 08:00 Insulin Human NPH (Humulin N) 5 unit Q8 SC Last administered on 06/04/18at 05:18; Admin Dose 5 UNIT; Start 06/03/18 at 08:00 Guaifenesin/ Dextromethorphan (Robitussin Dm Liquid Cup) 5 ml Q6H RESP THERAPY PRN PO COUGH Last administered on 06/03/18at 04:40; Admin Dose 5 ML; Start 06/03/18 at 03:30 Atorvastatin Calcium (Lipitor) 10 mg HS PO Last administered on 06/03/18at 20:52; Admin Dose 10 MG; Start 06/03/18 at 21:00 Levofloxacin/ Dextrose 150 ml @ 100 mls/hr Q24H IVPB Last administered on 06/04/18 05:12; Admin Dose 100 MLS/HR; Start 06/04/18 at 06:00 Hydromorphone HCl (Dilaudid) 0.5 mg Q6H PRN IV SEVERE PAIN LEVEL 7-10 Last administered on 06/04/18 11:04; Admin Dose 0.5 MG; Start 06/03/18 at 13:30 Furosemide (Lasix) 40 mg BID DIURETICS IV Last administered on 06/04/18 07:57; Admin Dose 40 MG; Start 06/03/18 at 18:00 Metoprolol Succinate (Toprol Xl) 25 mg BID PO Last administered on 06/04/18at 07:58; Admin Dose 25 MG; Start 06/03/18 at 21:00 Assessment/Plan Hospital Course (Demo Recall) IMPRESSION 1. Congestive heart failure. 2. Likely asthmatic bronchitis. 3. Probable underlying obstructive sleep apnea. Recs 1. Gentle diuresis. 2. Continue bronchodilator treatment. 3. Short steroid taper. 4. DVT and GI prophylaxis. 5. Encourage OOB should be ok from [place] tomorrow. SLOANE FRASER MD, [facility] Jun 04, 2018 11:28
--- NOTE | 2018-06-04 11:29 | CONS ---
Assessment/Plan Assessment/Plan Hospital Course (Demo Recall) IMPRESSION: 1. Congestive heart failure exacerbation, systolic, acute on chronic. 2. Cardiomyopathy with decreased left ventricular ejection fraction approximately 25% by echo 03/2018. 3. Hypertension, under reasonable control. 4. Dyslipidemia. 5. Chronic obstructive pulmonary disease exacerbation. 6. Positive tobacco. 7. History of paroxysmal atrial fibrillation, atrial flutter on anticoagulation in sinus rhythm at this time. 8. Diabetes mellitus. Recc: -Tele -serial ecg's -Continue BB/ACEI/statin -Continue digoxin -Contineu eliquis/asa -Contineu lasix diuresis -Continuie abx's/steroids/bronchodilators Consultation Date/Type/Reason Admit Date/Time Jun 02, 2018 at 21:00 Initial Consult Date 06/03/18 Type of Consult Cardiology Reason for Consultation CHF Requesting Provider: ALEKSANDRA SALCIDO MD Date/Time of Note DATE: 06/04/18 TIME: 11:26 Exam/Review of Systems Vital Signs Vitals Vital Signs Date Temp Pulse Resp B/P (MAP) Pulse Ox O2 O2 Flow FiO2 Time Delivery Rate 06/04/18 97 3.0 10:03 06/04/18 102 20 Nasal 10:01 Cannula 06/04/18 97.8 131/80 07:16 (97) 06/03/18 28 17:19 Intake and Output 06/03/18 06/03/18 06/04/18 1414:59 22:59 06:59 IntakeIntake Total 1600 ml 600 ml BalanceBalance 1600 ml 600 ml Exam Exam Review of Systems: CONSTITUTIONAL: No fevers, chills. PULMONARY: No sob CARDIOVASCULAR: No chest pain/palpitations GASTROINTESTINAL: No nausea/vomiting. GENITOURINARY: No hematuria/dysuria. MUSCULOSKELETAL: No myagias/arthalgias. PSYCHIATRIC: The patient denies depression. NEUROLOGIC: No weakness Constitutional: alert Psych: no complaints ENMT: mucosa pink and moist Neck: supple, jvd (9) Respiratory: diminished breath sounds (at5 bases/B) Cardiovascular: regular rate and rhythm Gastrointestinal: soft, non-tender Musculoskeletal: muscle tone (normal) Extremities: edema (none) Neurological: other (NO focal deficits) Labs Result Diagram: 06/03/18 0501 06/03/18 0501 Results 24hrs Laboratory Tests Test 06/03/18 12:09 06/03/18 13:51 06/03/18 17:10 06/03/18 20:50 Bedside Glucose 205 365 H 335 H Troponin I < 0.012 Test 06/04/18 02:51 06/04/18 05:09 06/04/18 07:13 Bedside Glucose 314 H 238 H Triglycerides Level 58 Cholesterol Level 158 LDL Cholesterol, 95 Calculated HDL Cholesterol 51 Cholesterol/HDL 3.0 Ratio Medications Medications Current Medications Apixaban (Eliquis) 5 mg BID PO Last administered on 06/04/18 07:57; Admin Dose 5 MG; Start 06/03/18 at 09:00 Albuterol/ Ipratropium (Duoneb) 3 ml Q4H RESP THERAPY HHN Last administered on 06/04/18 09:58; Admin Dose 3 ML; Start 06/03/18 at 01:00 Albuterol/ Ipratropium (Duoneb) 3 ml Q2H RESP THERAPY PRN HHN SHORTNESS OF BREATH; Start 06/03/18 at 00:00 Pantoprazole (Protonix Tab) 40 mg DAILY@06 PO Last administered on 06/04/18 05:11; Admin Dose 40 MG; Start 06/03/18 at 06:00 Ondansetron HCl (Zofran Inj) 4 mg Q4H PRN IV NAUSEA AND/OR VOMITING; Start 06/03/18 at 00:00 Acetaminophen (Tylenol Tab) 650 mg Q4H PRN PO MILD PAIN(1-3)OR ELEVATED TEMP; Start 06/03/18 at 00:00 Aspirin (Aspirin) 81 mg DAILY PO Last administered on 06/04/18 07:57; Admin Dose 81 MG; Start 06/03/18 at 09:00 Docusate Sodium (Colace) 100 mg BID PO Last administered on 06/03/18 20:52; Admin Dose 100 MG; Start 06/03/18 at 09:00 Digoxin (Digoxin) 0.125 mg DAILY@13 PO Last administered on 06/03/18 14:20; Ad min Dose 0.125 MG; Start 06/03/18 at 13:00 Bisacodyl (Dulcolax) 5 mg DAILY PRN PO CONSTIPATION; Start 06/03/18 at 00:00 Lisinopril (Zestril) 5 mg DAILY PO Last administered on 06/04/18 07:57; Admin Dose 5 MG; Start 06/03/18 at 09:00 Diagnostic Test (Pha) (Accu-Chek) 1 ea 02 XX Last administered on 06/04/18at 02:53; Admin Dose 1 EA; Start 06/03/18 at 02:00 Insulin Glargine (Lantus) 30 units DAILY@2000 SC Last administered on 06/03/18 21:40; Admin Dose 30 UNITS; Start 06/03/18 at 20:00 Insulin Aspart (Novolog Insulin Pen) NOVOLOG *MILD* ALGORITHM WITH MEALS BEDTIME SC Last administered on 06/04/18 07:15; Admin Dose 3 UNIT; Start 06/03/18 at 08:00 Miscellaneous Information 1 ea NOTE XX ; Start 06/03/18 at 01:00 Glucose (Glutose) 15 gm Q15M PRN PO DECREASED GLUCOSE; Start 06/03/18 at 01:00 Glucose (Glutose) 22.5 gm Q15M PRN PO DECREASED GLUCOSE; Start 06/03/18 at 01:00 Dextrose (D50w Syringe) 25 ml Q15M PRN IV DECREASED GLUCOSE; Start 06/03/18 at 01:00 Dextrose (D50w Syringe) 50 ml Q15M PRN IV DECREASED GLUCOSE; Start 06/03/18 at 01:00 Glucagon (Glucagen) 1 mg Q15M PRN IM DECREASED GLUCOSE; Start 06/03/18 at 01:00 Glucose (Glutose) 15 gm Q15M PRN BUCCAL DECREASED GLUCOSE; Start 06/03/18 at 01:00 Methylprednisolone Sodium Succinate (Solu-Medrol) 40 mg Q8 IV Last administered on 06/04/18at 05:10; Admin Dose 40 MG; Start 06/03/18 at 08:00 Insulin Human NPH (Humulin N) 5 unit Q8 SC Last administered on 06/04/18 05:18; Admin Dose 5 UNIT; Start 06/03/18 at 08:00 Guaifenesin/ Dextromethorphan (Robitussin Dm Liquid Cup) 5 ml Q6H RESP THERAPY PRN PO COUGH Last administered on 06/03/18at 04:40; Admin Dose 5 ML; Start 06/03/18 at 03:30 Atorvastatin Calcium (Lipitor) 10 mg HS PO Last administered on 06/03/18at 20:52; Admin Dose 10 MG; Start 06/03/18 at 21:00 Levofloxacin/ Dextrose 150 ml @ 100 mls/hr Q24H IVPB Last administered on 06/04/18 05:12; Admin Dose 100 MLS/HR; Start 06/04/18 at 06:00 Hydromorphone HCl (Dilaudid) 0.5 mg Q6H PRN IV SEVERE PAIN LEVEL 7-10 Last administered on 06/04/18 11:04; Admin Dose 0.5 MG; Start 06/03/18 at 13:30 Furosemide (Lasix) 40 mg BID DIURETICS IV Last administered on 06/04/18 07:57; Admin Dose 40 MG; Start 06/03/18 at 18:00 Metoprolol Succinate (Toprol Xl) 25 mg BID PO Last administered on 06/04/18 07:58; Admin Dose 25 MG; Start 06/03/18 at 21:00 GAGAN GARCIA Jun 04, 2018 11:29
[2018-06-04] MEDS: DIGOXIN 0.125 MG TAB PO SCH (12:20)
[2018-06-04] MEDS: BISACODYL (EC) 5 MG TAB PO PRN (13:14)
[2018-06-04] MEDS: GUAIFENESIN/DM 5ML CUP PO PRN (15:25)
--- NOTE | 2018-06-04 16:00 | PN ---
Date/Time of Note Date/Time of Note DATE: 06/04/18 TIME: 16:00 Assessment/Plan VTE Prophylaxis Risk score (from Ns)>0 risk: 3 SCD applied (from Ns): No SCD contraindicated: low risk/ambulating Pharmacological prophylaxis: NA/contraindicated Pharm contraindication: low risk/ambulating Lines/Catheters IV C[facility]ter Type [facility]from [facility] Mid Line Urinary Cath still in place: No Assessment/Plan Hospital Course his is a 47-year-old female presenting with: 1. Shortness of breath, cough, likely secondary to chronic obstructive pulmonary disease/congestive heart failure exacerbation. 2. Chest pain, rule out acute coronary syndrome. 3. Metabolic alkalosis. 4. Diabetes, uncontrolled. 5. Hypertension. 6. History of congestive heart failure with ejection fraction of 25% to 30%. 7. History of chronic atrial fibrillation. 8. Morbid obesity. 9. Abdominal wall hernia. Plan - dec steroids - cw levaquin - cw nebs - cw iv lasix - ambien for sleep - pain control - blood sugar control Result Diagram: 06/03/18 0501 06/03/18 0501 Results 24hrs Laboratory Tests Test 06/03/18 17:10 06/03/18 20:50 06/04/18 02:51 06/04/18 05:09 Bedside Glucose 365 H 335 H 314 H Triglycerides Level 58 Cholesterol Level 158 LDL Cholesterol, 95 Calculated HDL Cholesterol 51 Cholesterol/HDL 3.0 Ratio Test 06/04/18 07:13 06/04/18 11:36 06/04/18 15:24 Bedside Glucose 238 H 264 H 163 Subjective 24 Hr Interval Summary Free Text/Dictation Breathing has improved Exam/Review of Systems Exam Vitals Vital Signs Date Temp Pulse Resp B/P (MAP) Pulse Ox O2 O2 Flow FiO2 Time Delivery Rate 06/04/18 98.1 79 22 149/93 96 Nasal 15:22 (111) Cannula 06/04/18 3.0 10:03 06/03/18 28 17:19 Intake and Output 06/03/18 06/03/18 06/04/18 1515:00 23:00 07:00 IntakeIntake Total 1600 ml 600 ml BalanceBalance 1600 ml 600 ml Exam GENERAL: The patient is awake, alert, oriented, does not appear to be in any acute distress, able to speak full sentences. HEENT: Pupils are equal, round, reactive to light. NECK: No JVD appreciated. LUNGS: Diffuse scattered rhonchi ABDOMEN: Soft, nontender. The patient has an umbilical hernia in place which is reducible. Positive bowel sounds. EXTREMITIES: 1+ edema. NEUROLOGIC: Nonfocal. Results Results 24hrs Laboratory Tests Test 06/03/18 17:10 06/03/18 20:50 06/04/18 02:51 06/04/18 05:09 Bedside Glucose 365 H 335 H 314 H Triglycerides Level 58 Cholesterol Level 158 LDL Cholesterol, 95 Calculated HDL Cholesterol 51 Cholesterol/HDL 3.0 Ratio Test 06/04/18 07:13 06/04/18 11:36 06/04/18 15:24 Bedside Glucose 238 H 264 H 163 Medications Medication Current Medications Apixaban (Eliquis) 5 mg BID PO Last administered on 06/04/18at 07:57; Admin Dose 5 MG; Start 06/03/18 at 09:00 Albuterol/ Ipratropium (Duoneb) 3 ml Q4H RESP THERAPY HHN Last administered on 06/04/18at 09:58; Admin Dose 3 ML; Start 06/03/18 at 01:00 Albuterol/ Ipratropium (Duoneb) 3 ml Q2H RESP THERAPY PRN HHN SHORTNESS OF BREATH; Start 06/03/18 at 00:00 Pantoprazole (Protonix Tab) 40 mg DAILY@06 PO Last administered on 06/04/18at 05:11; Admin Dose 40 MG; Start 06/03/18 at 06:00 Ondansetron HCl (Zofran Inj) 4 mg Q4H PRN IV NAUSEA AND/OR VOMITING Last administered on 06/04/18at 15:25; Admin Dose 4 MG; Start 06/03/18 at 00:00 Acetaminophen (Tylenol Tab) 650 mg Q4H PRN PO MILD PAIN(1-3)OR ELEVATED TEMP; Start 06/03/18 at 00:00 Aspirin (Aspirin) 81 mg DAILY PO Last administered on 06/04/18at 07:57; Admin Dose 81 MG; Start 06/03/18 at 09:00 Docusate Sodium (Colace) 100 mg BID PO Last administered on 06/03/18at 20:52; Admin Dose 100 MG; Start 06/03/18 at 09:00 Digoxin (Digoxin) 0.125 mg DAILY@13 PO Last administered on 06/04/18 12:20; Admin Dose 0.125 MG; Start 06/03/18 at 13:00 Bisacodyl (Dulcolax) 5 mg DAILY PRN PO CONSTIPATION Last administered on 06/04/18 13:14; Admin Dose 5 MG; Start 06/03/18 at 00:00 Lisinopril (Zestril) 5 mg DAILY PO Last administered on 06/04/18 07:57; Admin Dose 5 MG; Start 06/03/18 at 09:00 Diagnostic Test (Pha) (Accu-Chek) 1 ea 02 XX Last administered on 06/04/18 02:53; Admin Dose 1 EA; Start 06/03/18 at 02:00 Insulin Glargine (Lantus) 30 units DAILY@2000 SC Last administered on 06/03/18 21:40; Admin Dose 30 UNITS; Start 06/03/18 at 20:00 Insulin Aspart (Novolog Insulin Pen) NOVOLOG *MILD* ALGORITHM WITH MEALS BEDTIME SC Last administered on 06/04/18at 11:47; Admin Dose 4 UNIT; Start 06/03/18 at 08:00 Miscellaneous Information 1 ea NOTE XX ; Start 06/03/18 at 01:00 Glucose (Glutose) 15 gm Q15M PRN PO DECREASED GLUCOSE; Start 06/03/18 at 01:00 Glucose (Glutose) 22.5 gm Q15M PRN PO DECREASED GLUCOSE; Start 06/03/18 at 01:00 Dextrose (D50w Syringe) 25 ml Q15M PRN IV DECREASED GLUCOSE; Start 06/03/18 at 01:00 Dextrose (D50w Syringe) 50 ml Q15M PRN IV DECREASED GLUCOSE; Start 06/03/18 at 01:00 Glucagon (Glucagen) 1 mg Q15M PRN IM DECREASED GLUCOSE; Start 06/03/18 at 01:00 Glucose (Glutose) 15 gm Q15M PRN BUCCAL DECREASED GLUCOSE; Start 06/03/18 at 0 1:00 Methylprednisolone Sodium Succinate (Solu-Medrol) 40 mg Q8 IV Last administered on 06/04/18at 15:25; Admin Dose 40 MG; Start 06/03/18 at 08:00 Insulin Human NPH (Humulin N) 5 unit Q8 SC Last administered on 06/04/18 15:33; Admin Dose 5 UNIT; Start 06/03/18 at 08:00 Guaifenesin/ Dextromethorphan (Robitussin Dm Liquid Cup) 5 ml Q6H RESP THERAPY PRN PO COUGH Last administered on 06/04/18 15:25; Admin Dose 5 ML; Start 06/03/18 at 03:30 Atorvastatin Calcium (Lipitor) 10 mg HS PO Last administered on 06/03/18 20:52; Admin Dose 10 MG; Start 06/03/18 at 21:00 Levofloxacin/ Dextrose 150 ml @ 100 mls/hr Q24H IVPB Last administered on 06/04/18 05:12; Admin Dose 100 MLS/HR; Start 06/04/18 at 06:00 Hydromorphone HCl (Dilaudid) 0.5 mg Q6H PRN IV SEVERE PAIN LEVEL 7-10 Last administered on 06/04/18 11:04; Admin Dose 0.5 MG; Start 06/03/18 at 13:30 Furosemide (Lasix) 40 mg BID DIURETICS IV Last administered on 06/04/18 07:57; Admin Dose 40 MG; Start 06/03/18 at 18:00 Metoprolol Succinate (Toprol Xl) 25 mg BID PO Last administered on 06/04/18 07:58; Admin Dose 25 MG; Start 06/03/18 at 21:00 Simethicone (Mylicon) 80 mg Q6H PRN PO DISTENSION/GAS/BLOATING Last administered on 06/04/18 13:52; Admin Dose 80 MG; Start 06/04/18 at 13:30 ALEKSANDRA SALCIDO MD Jun 04, 2018 16:00
[2018-06-04] MEDS: ATORVASTATIN 10 MG TAB PO SCH (20:33)
[2018-06-04] MEDS: INSULIN GLARGINE [LANTus] (100 UNITS/ML) SYG SC SCH (21:01)
[2018-06-05] VITALS (10 sets, daily range): BP systolic 96–143; BP diastolic 57–82; PULSE 62–101; RESP 16–18
[2018-06-05] MEDS: HYDROmorphONE 0.5 MG/0.5 ML SYG IV PRN ×4 (00:06→18:42)
[2018-06-05] MEDS: ALBUTEROL/IPRATROPIUM (NEB) 3 ML AMP HHN SCH ×6 (00:40→21:12)
[2018-06-05] MEDS: ACCU-CHEK XX SCH (02:00)
[2018-06-05] MEDS: FUROSEMIDE 40 MG INJ IV SCH ×2 (06:00→17:24)
[2018-06-05] MEDS: LEVOFLOXACIN 750MG/D5W (PMX) 150 ML IVPB SCH (06:04)
[2018-06-05] MEDS: PANTOPRAZOLE (EC) 40 MG TAB PO SCH (06:07)
[2018-06-05] MEDS: INSULIN ASPART [NOVOLOG] 3 ML PEN SC SCH ×5 (07:42→22:30)
[2018-06-05] MEDS: METHYLPREDNISOLONE 40 MG INJ IV SCH ×2 (08:34→21:06)
[2018-06-05] MEDS: APIXABAN 5 MG TABLET PO SCH ×2 (08:35→21:07)
[2018-06-05] MEDS: ASPIRIN 81 MG TAB PO SCH (08:35)
[2018-06-05] MEDS: DOCUSATE SODIUM 100 MG CAP PO SCH ×2 (08:35→21:07)
[2018-06-05] MEDS: METOPROLOL (XL) 25 MG TAB PO SCH ×2 (08:36→21:08)
[2018-06-05] MEDS: LISINOPRIL 5 MG TAB PO SCH (08:36)
[2018-06-05] MEDS: NPH, HUMAN INSULIN ISOPHANE 3ML VIAL SC SCH ×2 (08:41→21:06)
--- NOTE | 2018-06-05 13:05 | CONS ---
Consult Date/Type/Reason Admit Date/Time Jun 02, 2018 at 21:00 Initial Consult Date Type of Consult Pulmonary Requesting Provider: ALEKSANDRA SALCIDO MD Date/Time of Note DATE: 06/05/18 TIME: 13:04 Subjective Sleeping comfortable no respiratory distress Objective Vital Signs Date Temp Pulse Resp B/P (MAP) Pulse Ox O2 O2 Flow FiO2 Time Delivery Rate 06/05/18 85 12:10 06/05/18 97.5 18 132/70 100 Nasal 11:25 (90) Cannula 06/05/18 3.0 09:31 06/03/18 28 17:19 Intake and Output 06/04/18 06/04/18 06/05/18 1515:00 23:00 07:00 IntakeIntake Total 720 ml 800 ml OutputOutput Total 1400 ml BalanceBalance -680 ml 800 ml Exam PHYSICAL EXAMINATION: GENERAL: Well-nourished, well-developed lady, comfortable at rest, edema VITAL SIGNS: NECK: Supple. No JVD or lymphadenopathy. CARDIAC: S1, S2, no added sounds or murmurs. CHEST: Diminished air entry bilaterally with expiratory wheezes. ABDOMEN: Soft, nontender, obese. EXTREMITIES: No cyanosis, clubbing, 1+ edema. NEUROLOGIC: Grossly intact. No focal deficits. Vent Setting Fraction of Inspired Oxygen pe: 28 Results/Medications Result Diagram: 06/03/18 0501 06/05/18 0601 Results 24 hrs Laboratory Tests Test 06/04/18 15:24 06/04/18 17:05 06/04/18 20:37 06/05/18 02:32 Bedside Glucose 163 172 244 H 329 H Test 06/05/18 06:01 06/05/18 07:36 06/05/18 11:59 Sodium Level 138 Potassium Level 4.5 Chloride Level 100 Carbon Dioxide Level 33 H Anion Gap 5 Blood Urea Nitrogen 27 H Creatinine 0.86 Est Glomerular > 60 Filtrat Rate mL/min Glucose Level 264 H Calcium Level 9.4 Bedside Glucose 234 H 204 Medications Current Medications Apixaban (Eliquis) 5 mg BID PO Last administered on 06/05/18at 08:35; Admin Dose 5 MG; Start 06/03/18 at 09:00 Albuterol/ Ipratropium (Duoneb) 3 ml Q4H RESP THERAPY HHN Last administered on 06/05/18at 09:28; Admin Dose 3 ML; Start 06/03/18 at 01:00 Albuterol/ Ipratropium (Duoneb) 3 ml Q2H RESP THERAPY PRN HHN SHORTNESS OF BREATH; Start 06/03/18 at 00:00 Pantoprazole (Protonix Tab) 40 mg DAILY@06 PO Last administered on 06/05/18 06:07; Admin Dose 40 MG; Start 06/03/18 at 06:00 Ondansetron HCl (Zofran Inj) 4 mg Q4H PRN IV NAUSEA AND/OR VOMITING Last administered on 06/04/18 15:25; Admin Dose 4 MG; Start 06/03/18 at 00:00 Acetaminophen (Tylenol Tab) 650 mg Q4H PRN PO MILD PAIN(1-3)OR ELEVATED TEMP; Start 06/03/18 at 00:00 Aspirin (Aspirin) 81 mg DAILY PO Last administered on 06/05/18 08:35; Admin Dose 81 MG; Start 06/03/18 at 09:00 Docusate Sodium (Colace) 100 mg BID PO Last administered on 06/05/18 08:35; Admin Dose 100 MG; Start 06/03/18 at 09:00 Digoxin (Digoxin) 0.125 mg DAILY@13 PO Last administered on 06/04/18 12:20; Admin Dose 0.125 MG; Start 06/03/18 at 13:00 Bisacodyl (Dulcolax) 5 mg DAILY PRN PO CONSTIPATION Last administered on 06/04/18 13:14; Admin Dose 5 MG; Start 06/03/18 at 00:00 Lisinopril (Zestril) 5 mg DAILY PO Last administered on 06/05/18 08:36; Admin Dose 5 MG; Start 06/03/18 at 09:00 Diagnostic Test (Pha) (Accu-Chek) 1 ea 02 XX Last administered on 06/04/18 02:53; Admin Dose 1 EA; Start 06/03/18 at 02:00 Insulin Glargine (Lantus) 30 units DAILY@2000 SC Last administered on 06/04/18 21:01; Admin Dose 30 UNITS; Start 06/03/18 at 20:00 Insulin Aspart (Novolog Insulin Pen) NOVOLOG *MILD* ALGORITHM WITH MEALS BEDTIME SC Last administered on 06/05/18 12:04; Admin Dose 2 UNIT; Start 06/03/18 at 08:00 Miscellaneous Information 1 ea NOTE XX ; Start 06/03/18 at 01:00 Glucose (Glutose) 15 gm Q15M PRN PO DECREASED GLUCOSE; Start 06/03/18 at 01:00 Glucose (Glutose) 22.5 gm Q15M PRN PO DECREASED GLUCOSE; Start 06/03/18 at 01:00 Dextrose (D50w Syringe) 25 ml Q15M PRN IV DECREASED GLUCOSE; Start 06/03/18 at 01:00 Dextrose (D50w Syringe) 50 ml Q15M PRN IV DECREASED GLUCOSE; Start 06/03/18 at 01:00 Glucagon (Glucagen) 1 mg Q15M PRN IM DECREASED GLUCOSE; Start 06/03/18 at 01:00 Glucose (Glutose) 15 gm Q15M PRN BUCCAL DECREASED GLUCOSE; Start 06/03/18 at 01:00 Guaifenesin/ Dextromethorphan (Robitussin Dm Liquid Cup) 5 ml Q6H RESP THERAPY PRN PO COUGH Last administered on 06/04/18 15:25; Admin Dose 5 ML; Start 06/03/18 at 03:30 Atorvastatin Calcium (Lipitor) 10 mg HS PO Last administered on 06/04/18 20:33; Admin Dose 10 MG; Start 06/03/18 at 21:00 Levofloxacin/ Dextrose 150 ml @ 100 mls/hr Q24H IVPB Last administered on 06/05/18 06:04; Admin Dose 100 MLS/HR; Start 06/04/18 at 06:00 Hydromorphone HCl (Dilaudid) 0.5 mg Q6H PRN IV SEVERE PAIN LEVEL 7-10 Last administered on 06/05/18 10:57; Admin Dose 0.5 MG; Start 06/03/18 at 13:30 Furosemide (Lasix) 40 mg BID DIURETICS IV Last administered on 06/04/18 07:57; Admin Dose 40 MG; Start 06/03/18 at 18:00 Metoprolol Succinate (Toprol Xl) 25 mg BID PO Last administered on 06/05/18 08:36; Admin Dose 25 MG; Start 06/03/18 at 21:00 Simethicone (Mylicon) 80 mg Q6H PRN PO DISTENSION/GAS/BLOATING Last administered on 06/04/18at 13:52; Admin Dose 80 MG; Start 06/04/18 at 13:30 Zolpidem Tartrate (Ambien) 5 mg HS PRN PO INSOMNIA; Start 06/04/18 at 17:00 Methylprednisolone Sodium Succinate (Solu-Medrol) 40 mg Q12 IV Last administered on 06/05/18at 08:34; Admin Dose 40 MG; Start 06/04/18 at 21:00 Insulin Human NPH (Humulin N) 5 unit Q12 SC Last administered on 06/05/18at 08:41; Admin Dose 5 UNIT; Start 06/04/18 at 21:00 Assessment/Plan Hospital Course (Demo Recall) IMPRESSION 1. Congestive heart failure. 2. Likely asthmatic bronchitis. 3. Probable underlying obstructive sleep apnea. Recs 1. Gentle diuresis. 2. Continue bronchodilator treatment. 3. Short steroid taper. 4. DVT and GI prophylaxis. 5. Encourage OOB Consider DC planning SLOANE FRASER MD, [facility] Jun 05, 2018 13:05
--- NOTE | 2018-06-05 13:43 | CONS ---
Assessment/Plan Assessment/Plan Hospital Course (Demo Recall) IMPRESSION: 1. Congestive heart failure exacerbation, systolic, acute on chronic. 2. Cardiomyopathy with decreased left ventricular ejection fraction approximately 25% by echo 03/2018. 3. Hypertension, under reasonable control. 4. Dyslipidemia. 5. Chronic obstructive pulmonary disease exacerbation-improving 6. Positive tobacco. 7. History of paroxysmal atrial fibrillation, atrial flutter on anticoagulation in sinus rhythm at this time. 8. Diabetes mellitus. Recc: -Tele -serial ecg's -Continue BB/ACEI/statin -Continue digoxin -Contineu eliquis/asa -Contineu lasix but change to PO and follow volume status closely -Continuie abx's/steroids/bronchodilators Consultation Date/Type/Reason Admit Date/Time Jun 02, 2018 at 21:00 Initial Consult Date 06/03/18 Type of Consult Cardiology Reason for Consultation CHF Requesting Provider: ALEKSANDRA SALCIDO MD Date/Time of Note DATE: 06/05/18 TIME: 13:41 Exam/Review of Systems Vital Signs Vitals Vital Signs Date Temp Pulse Resp B/P (MAP) Pulse Ox O2 O2 Flow FiO2 Time Delivery Rate 06/05/18 85 12:10 06/05/18 97.5 18 132/70 100 Nasal 11:25 (90) Cannula 06/05/18 3.0 09:31 06/03/18 28 17:19 Intake and Output 06/04/18 06/04/18 06/05/18 1414:59 22:59 06:59 IntakeIntake Total 720 ml 800 ml OutputOutput Total 1400 ml BalanceBalance -680 ml 800 ml Exam Exam Review of Systems: CONSTITUTIONAL: No fevers, chills. PULMONARY: mild sob CARDIOVASCULAR: No chest pain/palpitations GASTROINTESTINAL: No nausea/vomiting. GENITOURINARY: No hematuria/dysuria. MUSCULOSKELETAL: No myagias/arthalgias. PSYCHIATRIC: The patient denies depression. NEUROLOGIC: No weakness Constitutional: alert, oriented Psych: no complaints Head: normocephalic ENMT: mucosa pink and moist Neck: supple, jvd (9 cm water) Respiratory: diminished breath sounds (at bases/B) Cardiovascular: regular rate and rhythm Gastrointestinal: soft, non-tender Musculoskeletal: muscle tone (normal) Extremities: edema (trace/B) Neurological: other (No focal deficits) Labs Result Diagram: 06/03/18 0501 06/05/18 0601 Results 24hrs Laboratory Tests Test 06/04/18 15:24 06/04/18 17:05 06/04/18 20:37 06/05/18 02:32 Bedside Glucose 163 172 244 H 329 H Test 06/05/18 06:01 06/05/18 07:36 06/05/18 11:59 Sodium Level 138 Potassium Level 4.5 Chloride Level 100 Carbon Dioxide Level 33 H Anion Gap 5 Blood Urea Nitrogen 27 H Creatinine 0.86 Est Glomerular > 60 Filtrat Rate mL/min Glucose Level 264 H Calcium Level 9.4 Bedside Glucose 234 H 204 Medications Medications Current Medications Apixaban (Eliquis) 5 mg BID PO Last administered on 06/05/18 08:35; Admin Dose 5 MG; Start 06/03/18 at 09:00 Albuterol/ Ipratropium (Duoneb) 3 ml Q4H RESP THERAPY HHN Last administered on 06/05/18 09:28; Admin Dose 3 ML; Start 06/03/18 at 01:00 Albuterol/ Ipratropium (Duoneb) 3 ml Q2H RESP THERAPY PRN HHN SHORTNESS OF BREATH; Start 06/03/18 at 00:00 Pantoprazole (Protonix Tab) 40 mg DAILY@06 PO Last administered on 06/05/18 06:07; Admin Dose 40 MG; Start 06/03/18 at 06:00 Ondansetron HCl (Zofran Inj) 4 mg Q4H PRN IV NAUSEA AND/OR VOMITING Last administered on 06/04/18 15:25; Admin Dose 4 MG; Start 06/03/18 at 00:00 Acetaminophen (Tylenol Tab) 650 mg Q4H PRN PO MILD PAIN(1-3)OR ELEVATED TEMP; Start 06/03/18 at 00:00 Aspirin (Aspirin) 81 mg DAILY PO Last administered on 06/05/18 08:35; Admin Dose 81 MG; Start 06/03/18 at 09:00 Docusate Sodium (Colace) 100 mg BID PO Last administered on 06/05/18 08:35; Admin Dose 100 MG; Start 06/03/18 at 09:00 Digoxin (Digoxin) 0.125 mg DAILY@13 PO Last administered on 2/14/19at 12:20; Admin Dose 0.125 MG; Start 06/03/18 at 13:00 Bisacodyl (Dulcolax) 5 mg DAILY PRN PO CONSTIPATION Last administered on 06/04/18at 13:14; Admin Dose 5 MG; Start 06/03/18 at 00:00 Lisinopril (Zestril) 5 mg DAILY PO Last administered on 06/05/18at 08:36; Admin Dose 5 MG; Start 06/03/18 at 09:00 Diagnostic Test (Pha) (Accu-Chek) 1 ea 02 XX Last administered on 06/04/18at 02:53; Admin Dose 1 EA; Start 06/03/18 at 02:00 Insulin Glargine (Lantus) 30 units DAILY@2000 SC Last administered on 06/04/18at 21:01; Admin Dose 30 UNITS; Start 06/03/18 at 20:00 Insulin Aspart (Novolog Insulin Pen) NOVOLOG *MILD* ALGORITHM WITH MEALS BEDTIME SC Last administered on 06/05/18at 12:04; Admin Dose 2 UNIT; Start 06/03 at 08:00 Miscellaneous Information 1 ea NOTE XX ; Start 06/03/18 at 01:00 Glucose (Glutose) 15 gm Q15M PRN PO DECREASED GLUCOSE; Start 06/03/18 at 01:00 Glucose (Glutose) 22.5 gm Q15M PRN PO DECREASED GLUCOSE; Start 06/03/18 at 01:00 Dextrose (D50w Syringe) 25 ml Q15M PRN IV DECREASED GLUCOSE; Start 06/03/18 at 01:00 Dextrose (D50w Syringe) 50 ml Q15M PRN IV DECREASED GLUCOSE; Start 06/03/18 at 01:00 Glucagon (Glucagen) 1 mg Q15M PRN IM DECREASED GLUCOSE; Start 06/03/18 at 01:00 Glucose (Glutose) 15 gm Q15M PRN BUCCAL DECREASED GLUCOSE; Start 06/03/18 at 01:00 Guaifenesin/ Dextromethorphan (Robitussin Dm Liquid Cup) 5 ml Q6H RESP THERAPY PRN PO COUGH Last administered on 06/04/18at 15:25; Admin Dose 5 ML; Start 06/03/18 at 03:30 Atorvastatin Calcium (Lipitor) 10 mg HS PO Last administered on 06/04/18at 20:33; Admin Dose 10 MG; Start 06/03/18 at 21:00 Levofloxacin/ Dextrose 150 ml @ 100 mls/hr Q24H IVPB Last administered on 06/05/18 06:04; Admin Dose 100 MLS/HR; Start 06/04/18 at 06:00 Hydromorphone HCl (Dilaudid) 0.5 mg Q6H PRN IV SEVERE PAIN LEVEL 7-10 Last administered on 06/05/18 10:57; Admin Dose 0.5 MG; Start 06/03/18 at 13:30 Furosemide (Lasix) 40 mg BID DIURETICS IV Last administered on 06/04/18 07:57; Admin Dose 40 MG; Start 06/03/18 at 18:00 Metoprolol Succinate (Toprol Xl) 25 mg BID PO Last administered on 06/05/18at 08:36; Admin Dose 25 MG; Start 06/03/18 at 21:00 Simethicone (Mylicon) 80 mg Q6H PRN PO DISTENSION/GAS/BLOATING Last administered on 06/04/18at 13:52; Admin Dose 80 MG; Start 06/04/18 at 13:30 Zolpidem Tartrate (Ambien) 5 mg HS PRN PO INSOMNIA; Start 06/04/18 at 17:00 Methylprednisolone Sodium Succinate (Solu-Medrol) 40 mg Q12 IV Last administered on 06/05/18at 08:34; Admin Dose 40 MG; Start 06/04/18 at 21:00 Insulin Human NPH (Humulin N) 5 unit Q12 SC Last administered on 06/05/18at 08:41; Admin Dose 5 UNIT; Start 06/04/18 at 21:00 GAGAN GARCIA Jun 05, 2018 13:43
[2018-06-05] MEDS: DIGOXIN 0.125 MG TAB PO SCH (13:55)
--- NOTE | 2018-06-05 15:36 | PN ---
Date/Time of Note Date/Time of Note DATE: 06/05/18 TIME: 15:35 Assessment/Plan VTE Prophylaxis Risk score (from Ns)>0 risk: 3 SCD applied (from [facility] [place]): No SCD contraindicated: other Pharmacological prophylaxis: apixaban Lines/Catheters IV Catheter Type (from [facility]): Mid Line Central line still needed: Yes Urinary Cath still in place: No Assessment/Plan Hospital Course 1. Shortness of breath, cough, likely secondary to chronic obstructive p ulmonary disease/congestive heart failure exacerbation. 2. Chest pain, rule out acute coronary syndrome. 3. Metabolic alkalosis. 4. Diabetes, uncontrolled. 5. Hypertension. 6. History of congestive heart failure with ejection fraction of 25% to 30%. 7. History of chronic atrial fibrillation. 8. Morbid obesity. 9. Abdominal wall hernia. Assessment/Plan - c/w steroids GI prophylaxis Protonix _DVT prophylaxis Eliquiz - cw levaquin - cw nebs - cw iv lasix - ambien for sleep - pain control - blood sugar control Result Diagram: 06/03/18 0501 06/05/18 0601 Results 24hrs Laboratory Tests Test 06/04/18 17:05 06/04/18 20:37 06/05/18 02:32 06/05/18 06:01 Bedside Glucose 172 244 H 329 H Sodium Level 138 Potassium Level 4.5 Chloride Level 100 Carbon Dioxide Level 33 H Anion Gap 5 Blood Urea Nitrogen 27 H Creatinine 0.86 Est Glomerular > 60 Filtrat Rate mL/min Glucose Level 264 H Calcium Level 9.4 Test 06/05/18 07:36 06/05/18 11:59 Bedside Glucose 234 H 204 Subjective 24 Hr Interval Summary Constitutional: no complaints, improved Exam/Review of Systems Exam Vitals Vital Signs Date Temp Pulse Resp B/P (MAP) Pulse Ox O2 O2 Flow FiO2 Time Delivery Rate 06/05/18 85 12:10 06/05/18 97.5 18 132/70 100 Nasal 11:25 (90) Cannula 06/05/18 3.0 09:31 06/03/18 28 17:19 Intake and Output 06/04/18 06/04/18 06/05/18 1414:59 22:59 06:59 IntakeIntake Total 720 ml 800 ml OutputOutput Total 1400 ml BalanceBalance -680 ml 800 ml Constitutional: alert, oriented ENMT: other (left eye is swollen) Respiratory: diminished breath sounds, wheezing Cardiovascular: regular rate and rhythm Gastrointestinal: soft, distended, surgical scars, other (ventral hernia) Results Results 24hrs Laboratory Tests Test 06/04/18 17:05 06/04/18 20:37 06/05/18 02:32 06/05/18 06:01 Bedside Glucose 172 244 H 329 H Sodium Level 138 Potassium Level 4.5 Chloride Level 100 Carbon Dioxide Level 33 H Anion Gap 5 Blood Urea Nitrogen 27 H Creatinine 0.86 Est Glomerular > 60 Filtrat Rate mL/min Glucose Level 264 H Calcium Level 9.4 Test 06/05/18 07:36 06/05/18 11:59 Bedside Glucose 234 H 204 Medications Medication Current Medications Apixaban (Eliquis) 5 mg BID PO Last administered on 06/05/18 08:35; Admin Dose 5 MG; Start 06/03/18 at 09:00 Albuterol/ Ipratropium (Duoneb) 3 ml Q4H RESP THERAPY HHN Last administered on 06/05/18 09:28; Admin Dose 3 ML; Start 06/03/18 at 01:00 Albuterol/ Ipratropium (Duoneb) 3 ml Q2H RESP THERAPY PRN HHN SHORTNESS OF BREATH; Start 06/03/18 at 00:00 Pantoprazole (Protonix Tab) 40 mg DAILY@06 PO Last administered on 06/05/18at 06:07; Admin Dose 40 MG; Start 06/03/18 at 06:00 Ondansetron HCl (Zofran Inj) 4 mg Q4H PRN IV NAUSEA AND/OR VOMITING Last administered on 06/04/18at 15:25; Admin Dose 4 MG; Start 06/03/18 at 00:00 Acetaminophen (Tylenol Tab) 650 mg Q4H PRN PO MILD PAIN(1-3)OR ELEVATED TEMP; Start 06/03/18 at 00:00 Aspirin (Aspirin) 81 mg DAILY PO Last administered on 06/05/18 08:35; Admin Dose 81 MG; Start 06/03/18 at 09:00 Docusate Sodium (Colace) 100 mg BID PO Last administered on 06/05/18at 08:35; Admin Dose 100 MG; Start 06/03/18 at 09:00 Digoxin (Digoxin) 0.125 mg DAILY@13 PO Last administered on 06/05/18at 13:55; Admin Dose 0.125 MG; Start 06/03/18 at 13:00 Bisacodyl (Dulcolax) 5 mg DAILY PRN PO CONSTIPATION Last administered on 06/04/18at 13:14; Admin Dose 5 MG; Start 06/03/18 at 00:00 Lisinopril (Zestril) 5 mg DAILY PO Last administered on 06/05/18 08:36; Admin Dose 5 MG; Start 06/03/18 at 09:00 Diagnostic Test (Pha) (Accu-Chek) 1 ea 02 XX Last administered on 06/04/18at 02:53; Admin Dose 1 EA; Start 06/03/18 at 02:00 Insulin Glargine (Lantus) 30 units DAILY@2000 SC Last administered on 06/04/18 21:01; Admin Dose 30 UNITS; Start 06/03/18 at 20:00 Insulin Aspart (Novolog Insulin Pen) NOVOLOG *MILD* ALGORITHM WITH MEALS BEDTIME SC Last administered on 06/05/18at 12:04; Admin Dose 2 UNIT; Start 05/22 07/07 at 08:00 Miscellaneous Information 1 ea NOTE XX ; Start 06/03/18 at 01:00 Glucose (Glutose) 15 gm Q15M PRN PO DECREASED GLUCOSE; Start 06/03/18 at 01:00 Glucose (Glutose) 22.5 gm Q15M PRN PO DECREASED GLUCOSE; Start 06/03/18 at 01:00 Dextrose (D50w Syringe) 25 ml Q15M PRN IV DECREASED GLUCOSE; Start 06/03/18 at 01:00 Dextrose (D50w Syringe) 50 ml Q15M PRN IV DECREASED GLUCOSE; Start 06/03/18 at 01:00 Glucagon (Glucagen) 1 mg Q15M PRN IM DECREASED GLUCOSE; Start 06/03/18 at 01:00 Glucose (Glutose) 15 gm Q15M PRN BUCCAL DECREASED GLUCOSE; Start 06/03/18 at 01:00 Guaifenesin/ Dextromethorphan (Robitussin Dm Liquid Cup) 5 ml Q6H RESP THERAPY PRN PO COUGH Last administered on 06/04/18at 15:25; Admin Dose 5 ML; Start 06/03/18 at 03:30 Atorvastatin Calcium (Lipitor) 10 mg HS PO Last administered on 06/04/18 20:33; Admin Dose 10 MG; Start 06/03/18 at 21:00 Levofloxacin/ Dextrose 150 ml @ 100 mls/hr Q24H IVPB Last administered on 06/05/18 06:04; Admin Dose 100 MLS/HR; Start 06/04/18 at 06:00 Hydromorphone HCl (Dilaudid) 0.5 mg Q6H PRN IV SEVERE PAIN LEVEL 7-10 Last administered on 06/05/18 10:57; Admin Dose 0.5 MG; Start 06/03/18 at 13:30 Furosemide (Lasix) 40 mg BID DIURETICS IV Last administered on 06/04/18 07:57; Admin Dose 40 MG; Start 06/03/18 at 18:00 Metoprolol Succinate (Toprol Xl) 25 mg BID PO Last administered on 06/05/18 08:36; Admin Dose 25 MG; Start 06/03/18 at 21:00 Simethicone (Mylicon) 80 mg Q6H PRN PO DISTENSION/GAS/BLOATING Last administered on 06/04/18 13:52; Admin Dose 80 MG; Start 06/04/18 at 13:30 Zolpidem Tartrate (Ambien) 5 mg HS PRN PO INSOMNIA; Start 06/04/18 at 17:00 Methylprednisolone Sodium Succinate (Solu-Medrol) 40 mg Q12 IV Last administered on 06/05/18 08:34; Admin Dose 40 MG; Start 06/04/18 at 21:00 Insulin Human NPH (Humulin N) 5 unit Q12 SC Last administered on 06/05/18 08:41; Admin Dose 5 UNIT; Start 06/04/18 at 21:00 MELANIA LAMBERT Jun 05, 2018 15:36
[2018-06-05] MEDS: INSULIN GLARGINE [LANTus] (100 UNITS/ML) SYG SC SCH (21:06)
[2018-06-05] MEDS: ZOLPIDEM 5 MG TAB PO PRN (21:07)
[2018-06-05] MEDS: ATORVASTATIN 10 MG TAB PO SCH (21:07)
[2018-06-05] MEDS: INSULIN ASPART [NOVOLOG] 3 ML PEN SC PRN (23:21)
[2018-06-06] VITALS (9 sets, daily range): BP systolic 126–157; BP diastolic 69–90; PULSE 72–89; RESP 18–20
[2018-06-06] MEDS: ALBUTEROL/IPRATROPIUM (NEB) 3 ML AMP HHN SCH ×6 (01:27→20:32)
[2018-06-06] MEDS: ACCU-CHEK XX SCH (02:00)
[2018-06-06] MEDS ORDERED: ACCU-CHEK XX SCH (02:00)
[2018-06-06] MEDS: HYDROmorphONE 0.5 MG/0.5 ML SYG IV PRN ×4 (04:01→21:57)
[2018-06-06] MEDS: LEVOFLOXACIN 750MG/D5W (PMX) 150 ML IVPB SCH (05:49)
[2018-06-06] MEDS: PANTOPRAZOLE (EC) 40 MG TAB PO SCH (05:49)
[2018-06-06] MEDS: FUROSEMIDE 40 MG TAB PO SCH ×2 (05:50→17:37)
[2018-06-06] MEDS: NPH, HUMAN INSULIN ISOPHANE 3ML VIAL SC SCH ×2 (08:02→21:26)
[2018-06-06] MEDS: INSULIN ASPART [NOVOLOG] 3 ML PEN SC SCH ×4 (08:02→21:27)
[2018-06-06] MEDS: ASPIRIN 81 MG TAB PO SCH (08:11)
[2018-06-06] MEDS: DOCUSATE SODIUM 100 MG CAP PO SCH ×2 (08:11→20:15)
[2018-06-06] MEDS: METOPROLOL (XL) 25 MG TAB PO SCH ×2 (08:12→20:16)
[2018-06-06] MEDS: APIXABAN 5 MG TABLET PO SCH ×2 (08:12→20:15)
[2018-06-06] MEDS: LISINOPRIL 5 MG TAB PO SCH (08:13)
[2018-06-06] MEDS ORDERED: METHYLPREDNISOLONE 40 MG INJ IV ONE (09:00)
--- NOTE | 2018-06-06 11:25 | PN ---
Date/Time of Note Date/Time of Note DATE: 06/06/18 TIME: 11:23 Assessment/Plan VTE Prophylaxis Risk score (from Nsg)>0 risk: 2 SCD applied (from Ns): No SCD contraindicated: low risk/ambulating, other Pharmacological prophylaxis: apixaban Lines/Catheters IV Catheter Type (from Nrsg): Mid Line Central line still needed: Yes Urinary Cath still in place: No Assessment/Plan Hospital Course 1. Shortness of breath, cough, likely secondary to chronic obstructive pulmonary disease/congestive heart failure exacerbation. 2. Chest pain, rule out acute coronary syndrome. 3. Metabolic alkalosis. 4. Diabetes, uncontrolled. 5. Hypertension. 6. History of congestive heart failure with ejection fraction of 25% to 30%. 7. History of chronic atrial fibrillation. 8. Morbid obesity. 9. Abdominal wall hernia. Assessment/Plan -GI prophylaxis Protonix _DVT prophylaxis Eliquiz - cw levaquin - cw nebs - cw iv lasix BID , pt refused - ambien for sleep - pain control - blood sugar control Result Diagram: 06/03/18 0501 06/06/18 0544 Results 24hrs Laboratory Tests Test 06/05/18 11:59 06/05/18 17:22 06/06/18 02:12 06/06/18 05:44 Bedside Glucose 204 374 H 317 H Sodium Level 138 Potassium Level 4.3 Chloride Level 97 Carbon Dioxide Level 38 H Anion Gap 3 L Blood Urea Nitrogen 23 H Creatinine 0.63 Est Glomerular > 60 Filtrat Rate mL/min Glucose Level 266 H Calcium Level 8.8 Test 06/06/18 07:49 Bedside Glucose 143 Subjective 24 Hr Interval Summary Respiratory: shortness of breath Exam/Review of Systems Exam Vitals Vital Signs Date Temp Pulse Resp B/P (MAP) Pulse Ox O2 O2 Flow FiO2 Time Delivery Rate 06/06/18 98.2 78 19 139/72 97 11:08 (94) 06/06/18 Nasal 3.0 10:23 Cannula 06/03/18 28 17:19 Intake and Output 06/05/18 06/05/18 06/06/18 1515:00 23:00 07:00 IntakeIntake Total 360 ml 1240 ml BalanceBalance 360 ml 1240 ml Constitutional: alert, oriented Eyes: other (left eye swollen) Neck: supple Respiratory: wheezing Cardiovascular: regular rate and rhythm Gastrointestinal: soft Results Results 24hrs Laboratory Tests Test 06/05/18 11:59 06/05/18 17:22 06/06/18 02:12 06/06/18 05:44 Bedside Glucose 204 374 H 317 H Sodium Level 138 Potassium Level 4.3 Chloride Level 97 Carbon Dioxide Level 38 H Anion Gap 3 L Blood Urea Nitrogen 23 H Creatinine 0.63 Est Glomerular > 60 Filtrat Rate mL/min Glucose Level 266 H Calcium Level 8.8 Test 06/06/18 07:49 Bedside Glucose 143 Medications Medication Current Medications Apixaban (Eliquis) 5 mg BID PO Last administered on 06/06/18 08:12; Admin Dose 5 MG; Start 06/03/18 at 09:00 Albuterol/ Ipratropium (Duoneb) 3 ml Q4H RESP THERAPY HHN Last administered on 06/06/18at 10:12; Admin Dose 3 ML; Start 06/03/18 at 01:00 Albuterol/ Ipratropium (Duoneb) 3 ml Q2H RESP THERAPY PRN HHN SHORTNESS OF BREATH; Start 06/03/18 at 00:00 Pantoprazole (Protonix Tab) 40 mg DAILY@06 PO Last administered on 06/06/18 05:49; Admin Dose 40 MG; Start 06/03/18 at 06:00 Ondansetron HCl (Zofran Inj) 4 mg Q4H PRN IV NAUSEA AND/OR VOMITING Last admini stered on 06/04/18at 15:25; Admin Dose 4 MG; Start 06/03/18 at 00:00 Acetaminophen (Tylenol Tab) 650 mg Q4H PRN PO MILD PAIN(1-3)OR ELEVATED TEMP; Start 06/03/18 at 00:00 Aspirin (Aspirin) 81 mg DAILY PO Last administered on 06/06/18 08:11; Admin Dose 81 MG; Start 06/03/18 at 09:00 Docusate Sodium (Colace) 100 mg BID PO Last administered on 06/06/18 08:11; Admin Dose 100 MG; Start 06/03/18 at 09:00 Digoxin (Digoxin) 0.125 mg DAILY@13 PO Last administered on 06/05/18at 13:55; Admin Dose 0.125 MG; Start 06/03/18 at 13:00 Bisacodyl (Dulcolax) 5 mg DAILY PRN PO CONSTIPATION Last administered on 06/04/18at 13:14; Admin Dose 5 MG; Start 06/03/18 at 00:00 Lisinopril (Zestril) 5 mg DAILY PO Last administered on 06/06/18at 08:13; Admin Dose 5 MG; Start 06/03/18 at 09:00 Diagnostic Test (Pha) (Accu-Chek) 1 ea 02 XX Last administered on 06/04/18at 02:53; Admin Dose 1 EA; Start 06/03/18 at 02:00 Insulin Glargine (Lantus) 30 units DAILY@2000 SC Last administered on 06/05/18at 21:06; Admin Dose 30 UNITS; Start 06/03/18 at 20:00 Miscellaneous Information 1 ea NOTE XX ; Start 06/03/18 at 01:00 Glucose (Glutose) 15 gm Q15M PRN PO DECREASED GLUCOSE; Start 06/03/18 at 01:00 Glucose (Glutose) 22.5 gm Q15M PRN PO DECREASED GLUCOSE; Start 06/03/18 at 01:00 Dextrose (D50w Syringe) 25 ml Q15M PRN IV DECREASED GLUCOSE; Start 06/03/18 at 01:00 Dextrose (D50w Syringe) 50 ml Q15M PRN IV DECREASED GLUCOSE; Start 06/03/18 at 01:00 Glucagon (Glucagen) 1 mg Q15M PRN IM DECREASED GLUCOSE; Start 06/03/18 at 01:00 Glucose (Glutose) 15 gm Q15M PRN BUCCAL DECREASED GLUCOSE; Start 06/03/18 at 01:00 Guaifenesin/ Dextromethorphan (Robitussin Dm Liquid Cup) 5 ml Q6H RESP THERAPY PRN PO COUGH Last administered on 06/04/18at 15:25; Admin Dose 5 ML; Start 06/03/18 at 03:30 Atorvastatin Calcium (Lipitor) 10 mg HS PO Last administered on 06/05/18at 21:07; Admin Dose 10 MG; Start 06/03/18 at 21:00 Levofloxacin/ Dextrose 150 ml @ 100 mls/hr Q24H IVPB Last administered on 06/06/18at 05:49; Admin Dose 100 MLS/HR; Start 06/04/18 at 06:00 Hydromorphone HCl (Dilaudid) 0.5 mg Q6H PRN IV SEVERE PAIN LEVEL 7-10 Last administered on 06/06/18 10:17; Admin Dose 0.5 MG; Start 06/03/18 at 13:30 Metoprolol Succinate (Toprol Xl) 25 mg BID PO Last administered on 06/06/18 08:12; Admin Dose 25 MG; Start 06/03/18 at 21:00 Simethicone (Mylicon) 80 mg Q6H PRN PO DISTENSION/GAS/BLOATING Last administered on 06/04/18 13:52; Admin Dose 80 MG; Start 06/04/18 at 13:30 Zolpidem Tartrate (Ambien) 5 mg HS PRN PO INSOMNIA Last administered on 06/05/18 21:07; Admin Dose 5 MG; Start 06/04/18 at 17:00 Insulin Human NPH (Humulin N) 5 unit Q12 SC Last administered on 06/06/18 08:02; Admin Dose 5 UNIT; Start 06/04/18 at 21:00 Furosemide (Lasix) 40 mg BID DIURETICS PO ; Start 06/06/18 at 06:00 Insulin Aspart (Novolog Insulin Pen) NOVOLOG *MODERATE* ALGORITHM WITH MEALS BEDTIME SC Last administered on 06/06/18 08:02; Admin Dose 2 UNIT; Start 06/05/18 at 22:30 Insulin Aspart (Novolog Insulin Pen) 10 unit QHS PRN SC FOR BS >300 Last administered on 06/05/18 23:21; Admin Dose 10 UNIT; Start 06/05/18 at 22:30 MELANIA LAMBERT Jun 06, 2018 11:25
--- NOTE | 2018-06-06 12:13 | CONS ---
Consult Date/Type/Reason Admit Date/Time Jun 02, 2018 at 21:00 Initial Consult Date Type of Consult Pulmonary Requesting Provider: ALEKSANDRA SALCIDO MD Date/Time of Note DATE: 06/06/18 TIME: 12:11 Subjective Still with significant wheezing today. Objective Vital Signs Date Temp Pulse Resp B/P (MAP) Pulse Ox O2 O2 Flow FiO2 Time Delivery Rate 06/06/18 98.2 78 19 139/72 97 11:08 (94) 06/06/18 Nasal 3.0 10:23 Cannula 06/03/18 28 17:19 Intake and Output 06/05/18 06/05/18 06/06/18 1515:00 23:00 07:00 IntakeIntake Total 360 ml 1240 ml BalanceBalance 360 ml 1240 ml Exam PHYSICAL EXAMINATION: GENERAL: Well-nourished, well-developed lady, comfortable at rest, VITAL SIGNS: NECK: Supple. No JVD or lymphadenopathy. CARDIAC: S1, S2, no added sounds or murmurs. CHEST: Diminished air entry bilaterally with expiratory wheezes. ABDOMEN: Soft, nontender, obese. EXTREMITIES: No cyanosis, clubbing, 1+ edema. NEUROLOGIC: Grossly intact. No focal deficits. Vent Setting Fraction of Inspired Oxygen pe: 28 Results/Medications Result Diagram: 06/03/18 0501 06/06/18 0544 Results 24 hrs Laboratory Tests Test 06/05/18 17:22 06/06/18 02:12 06/06/18 05:44 06/06/18 07:49 Bedside Glucose 374 H 317 H 143 Sodium Level 138 Potassium Level 4.3 Chloride Level 97 Carbon Dioxide Level 38 H Anion Gap 3 L Blood Urea Nitrogen 23 H Creatinine 0.63 Est Glomerular > 60 Filtrat Rate mL/min Glucose Level 266 H Calcium Level 8.8 Test 06/06/18 12:02 Bedside Glucose 184 Medications Current Medications Apixaban (Eliquis) 5 mg BID PO Last administered on 06/06/18at 08:12; Admin Dose 5 MG; Start 06/03/18 at 09:00 Albuterol/ Ipratropium (Duoneb) 3 ml Q4H RESP THERAPY HHN Last administered on 06/06/18at 10:12; Admin Dose 3 ML; Start 06/03/18 at 01:00 Albuterol/ Ipratropium (Duoneb) 3 ml Q2H RESP THERAPY PRN HHN SHORTNESS OF B REATH; Start 06/03/18 at 00:00 Pantoprazole (Protonix Tab) 40 mg DAILY@06 PO Last administered on 06/06/18 05:49; Admin Dose 40 MG; Start 06/03/18 at 06:00 Ondansetron HCl (Zofran Inj) 4 mg Q4H PRN IV NAUSEA AND/OR VOMITING Last administered on 06/04/18 15:25; Admin Dose 4 MG; Start 06/03/18 at 00:00 Acetaminophen (Tylenol Tab) 650 mg Q4H PRN PO MILD PAIN(1-3)OR ELEVATED TEMP; Start 06/03/18 at 00:00 Aspirin (Aspirin) 81 mg DAILY PO Last administered on 06/06/18 08:11; Admin Dose 81 MG; Start 06/03/18 at 09:00 Docusate Sodium (Colace) 100 mg BID PO Last administered on 06/06/18 08:11; Admin Dose 100 MG; Start 06/03/18 at 09:00 Digoxin (Digoxin) 0.125 mg DAILY@13 PO Last administered on 06/05/18 13:55; Admin Dose 0.125 MG; Start 06/03/18 at 13:00 Bisacodyl (Dulcolax) 5 mg DAILY PRN PO CONSTIPATION Last administered on 06/04/18 13:14; Admin Dose 5 MG; Start 06/03/18 at 00:00 Lisinopril (Zestril) 5 mg DAILY PO Last administered on 06/06/18 08:13; Admin Dose 5 MG; Start 06/03/18 at 09:00 Diagnostic Test (Pha) (Accu-Chek) 1 ea 02 XX Last administered on 06/04/18 02:53; Admin Dose 1 EA; Start 06/03/18 at 02:00 Insulin Glargine (Lantus) 30 units DAILY@2000 SC Last administered on 06/05/18 21:06; Admin Dose 30 UNITS; Start 06/03/18 at 20:00 Miscellaneous Information 1 ea NOTE XX ; Start 06/03/18 at 01:00 Glucose (Glutose) 15 gm Q15M PRN PO DECREASED GLUCOSE; Start 06/03/18 at 01:00 Glucose (Glutose) 22.5 gm Q15M PRN PO DECREASED GLUCOSE; Start 06/03/18 at 01:00 Dextrose (D50w Syringe) 25 ml Q15M PRN IV DECREASED GLUCOSE; Start 06/03/18 at 01:00 Dextrose (D50w Syringe) 50 ml Q15M PRN IV DECREASED GLUCOSE; Start 06/03/18 at 01:00 Glucagon (Glucagen) 1 mg Q15M PRN IM DECREASED GLUCOSE; Start 06/03/18 at 01:00 Glucose (Glutose) 15 gm Q15M PRN BUCCAL DECREASED GLUCOSE; Start 06/03/18 at 01:00 Guaifenesin/ Dextromethorphan (Robitussin Dm Liquid Cup) 5 ml Q6H RESP THERAPY PRN PO COUGH Last administered on 06/04/18 15:25; Admin Dose 5 ML; Start 06/03/18 at 03:30 Atorvastatin Calcium (Lipitor) 10 mg HS PO Last administered on 06/05/18 21:07; Admin Dose 10 MG; Start 06/03/18 at 21:00 Levofloxacin/ Dextrose 150 ml @ 100 mls/hr Q24H IVPB Last administered on 06/06/18 05:49; Admin Dose 100 MLS/HR; Start 06/04/18 at 06:00 Hydromorphone HCl (Dilaudid) 0.5 mg Q6H PRN IV SEVERE PAIN LEVEL 7-10 Last administered on 06/06/18at 10:17; Admin Dose 0.5 MG; Start 06/03/18 at 13:30 Metoprolol Succinate (Toprol Xl) 25 mg BID PO Last administered on 06/06/18at 08:12; Admin Dose 25 MG; Start 06/03/18 at 21:00 Simethicone (Mylicon) 80 mg Q6H PRN PO DISTENSION/GAS/BLOATING Last administered on 06/04/18 13:52; Admin Dose 80 MG; Start 06/04/18 at 13:30 Zolpidem Tartrate (Ambien) 5 mg HS PRN PO INSOMNIA Last administered on 06/05/18 21:07; Admin Dose 5 MG; Start 06/04/18 at 17:00 Insulin Human NPH (Humulin N) 5 unit Q12 SC Last administered on 06/06/18at 08:02; Admin Dose 5 UNIT; Start 06/04/18 at 21:00 Furosemide (Lasix) 40 mg BID DIURETICS PO ; Start 06/06/18 at 06:00 Insulin Aspart (Novolog Insulin Pen) NOVOLOG *MODERATE* ALGORITHM WITH MEALS B EDTIME SC Last administered on 06/06/18at 12:04; Admin Dose 4 UNIT; Start 06/05/18 at 22:30 Insulin Aspart (Novolog Insulin Pen) 10 unit QHS PRN SC FOR BS >300 Last administered on 06/05/18at 23:21; Admin Dose 10 UNIT; Start 06/05/18 at 22:30 Assessment/Plan Hospital Course (Demo Recall) IMPRESSION 1. Congestive heart failure. 2. Likely asthmatic bronchitis. 3. Probable underlying obstructive sleep apnea. Recs 1. Continue diuresis. 2. Continue bronchodilator treatment. 3. Short steroid taper. 4. DVT and GI prophylaxis. 5. Encourage OOB not stable for dc today. SLOANE FRASER MD, [facility] Jun 06, 2018 12:13
[2018-06-06] MEDS: DIGOXIN 0.125 MG TAB PO SCH (14:23)
--- NOTE | 2018-06-06 14:26 | CONS ---
Consult Date/Type/Reason Admit Date/Time Jun 02, 2018 at 21:00 Initial Consult Date Requesting Provider: ALEKSANDRA SALCIDO MD Date/Time of Note DATE: 06/06/18 TIME: 14:24 Subjective NO acute events - pt reports feeling better - responded to diuresis. Con't resp Rx. ROS: No fever, no chills, no nausea, no vomiting, no diarrhea/constipation No recent weight changes No chest pain, no PND, no orthopnea - + SOB, better No dizziness, blurred vision No thirst, no heat or cold intolerance Objective Vitals Vital Signs Date Temp Pulse Resp B/P (MAP) Pulse Ox O2 O2 Flow FiO2 Time Delivery Rate 06/06/18 84 20 Nasal 3.0 13:54 Cannula 06/06/18 98.2 139/72 97 11:08 (94) 06/03/18 28 17:19 Intake and Output 06/05/18 06/05/18 06/06/18 1515:00 23:00 07:00 IntakeIntake Total 360 ml 1240 ml BalanceBalance 360 ml 1240 ml Exam General: WN/WD/NAD, AOx 3 HEENT: Unicetric/atraumatic/EOMI ( follows commands) NECK: JVD elevated, no thyromegaly Lymph: no lymphadenopathy HEART: regular with no S3, II/ systolic murmur at apex, PMI L LUNGS: Coarse sounds, occ wheezing ABD: soft, NT, ND, +BS : Intact Neuro: non focal SKIN: chronic changes EXT: 1-2+ edema Results/Medications Result Diagram: 06/03/18 0501 06/06/18 0544 Results 24 hrs Laboratory Tests Test 06/05/18 17:22 06/06/18 02:12 06/06/18 05:44 06/06/18 07:49 Bedside Glucose 374 H 317 H 143 Sodium Level 138 Potassium Level 4.3 Chloride Level 97 Carbon Dioxide Level 38 H Anion Gap 3 L Blood Urea Nitrogen 23 H Creatinine 0.63 Est Glomerular > 60 Filtrat Rate mL/min Glucose Level 266 H Calcium Level 8.8 Test 06/06/18 12:02 Bedside Glucose 184 Home Meds Active Scripts Pantoprazole* (Protonix*) 40 Mg Tablet.dr, 40 MG PO DAILY for 30 Days, TAB Prov:ALEKSANDRA SALCIDO MD 04/22/18 Apixaban* (Eliquis*) 5 Mg Tablet, 5 MG PO BID for 30 Days, TAB Prov:ALEKSANDRA SALCIDO MD 04/22/18 Digoxin* (Digitek*) 125 Mcg Tablet, 0.125 MG PO DAILY@13 for 30 Days, TAB Prov:ALEKSANDRA SALCIDO MD 04/22/18 Ipratropium-Albuterol (Ipratropium-Albuterol) 0.5-3 Mg/3 Ml Ampul.neb, 3 ML INHALATION Q4H PRN for WHEEZING AND SOB for 10 Days, #3 VIAL Prov:ALEKSANDRA SALCIDO MD 04/22/18 Furosemide* (Furosemide*) 40 Mg Tablet, 40 MG PO BID for 30 Days, TAB Prov:ALEKSANDRA SALCIDO MD 04/22/18 Lorazepam* (Ativan*) 0.5 Mg Tablet, 0.5 MG PO HS PRN for ANXIETY for 5 Days, #30 TAB Prov:ALEKSANDRA SALCIDO MD 04/22/18 Insulin Glargine,Hum.rec.anlog (Basaglar Kwikpen U-100) 100 Unit/1 Ml Insuln.pen, 30 UNIT SC QHS for 30 Days, EA Prov:ALEKSANDRA SALCIDO MD 04/22/18 Quetiapine Fumarate* (Seroquel*) 100 Mg Tablet, 100 MG PO DAILY, #30 TAB Prov:ALEKSANDRA SALCIDO MD 04/22/18 Metformin Hcl* (Metformin Hcl*) 1,000 Mg Tablet, 1000 MG PO WITH BREAKFAST DINNE for 30 Days, #60 TAB Prov:ALEKSANDRA SALCIDO MD 04/22/18 Docusate Sodium* (Colace*) 100 Mg Capsule, 100 MG PO Q12H for 30 Days, #60 CAP Prov:ALEKSANDRA SALCIDO MD 04/22/18 Atorvastatin Calcium (Atorvastatin Calcium) 10 Mg Tablet, 10 MG PO QHS for 30 Days, #30 TAB Prov:ALEKSANDRA SALCIDO MD 04/22/18 Aspirin* (Aspirin* EC) 81 Mg Tablet.dr, 81 MG PO DAILY for 30 Days, TAB Prov:ALEKSANDRA SALCIDO MD 04/22/18 Ibuprofen* (Motrin*) 600 Mg Tab, 600 MG PO Q6, #30 TAB Prov:NAIN KINGSLEY PA-C 02/16/18 Reported Medications Insulin Lispro (Humalog Kwikpen U-100) 100 Unit/1 Ml Insuln.pen, 0 SQ SLIDING SCALE, EA 06/02/18 Metoprolol Succinate* (Toprol XL*) 25 Mg Tab.sr.24h, 25 MG PO BID, #30 TAB 06/02/18 Lisinopril* (Lisinopril*) 5 Mg Tablet, 5 MG PO DAILY, #30 TAB 06/02/18 Bisacodyl* (Bisacodyl*) 5 Mg Tablet.dr, 5 MG PO DAILY PRN for NEEDED, TAB 01/28/18 Discontinued Scripts Amoxicillin/Potassium Clav (Amox-Clav 875-125 mg Tablet) 875-125 mg Tab, 1 TAB PO BID for 6 Days, #20 TAB Prov:ALEKSANDRA SALCIDO MD 04/22/18 Prednisone* (Prednisone*) 20 Mg Tab, 20 MG PO DAILY, #10 TAB Prov:ALEKSANDRA SALCIDO MD 04/22/18 Metoprolol Succinate* (Toprol XL*) 25 Mg Tab.sr.24h, 12.5 MG PO BID for 30 Days Prov:ALEKSANDRA SALCIDO MD 04/22/18 Hydrocodone/Acetaminophen ([place] 5-325 Tablet) 1 Each Tablet, 1 TAB PO Q6H PRN for PAIN for 3 Days, #20 TAB Prov:ALEKSANDRA SALCIDO MD 04/22/18 Lisinopril* (Lisinopril*) 5 Mg Tablet, 2.5 MG PO DAILY for 30 Days, TAB Prov:ALEKSANDRA SALCIDO MD 04/22/18 Medications Current Medications Apixaban (Eliquis) 5 mg BID PO Last administered on 06/06/18at 08:12; Admin Dose 5 MG; Start 06/03/18 at 09:00 Albuterol/ Ipratropium (Duoneb) 3 ml Q4H RESP THERAPY HHN Last administered on 06/06/18at 13:49; Admin Dose 3 ML; Start 06/03/18 at 01:00 Albuterol/ Ipratropium (Duoneb) 3 ml Q2H RESP THERAPY PRN HHN SHORTNESS OF BREATH; Start 06/03/18 at 00:00 Pantoprazole (Protonix Tab) 40 mg DAILY@06 PO Last administered on 06/06/18at 05:49; Admin Dose 40 MG; Start 06/03/18 at 06:00 Ondansetron HCl (Zofran Inj) 4 mg Q4H PRN IV NAUSEA AND/OR VOMITING Last administered on 06/04/18 15:25; Admin Dose 4 MG; Start 06/03/18 at 00:00 Acetaminophen (Tylenol Tab) 650 mg Q4H PRN PO MILD PAIN(1-3)OR ELEVATED TEMP; Start 06/03/18 at 00:00 Aspirin (Aspirin) 81 mg DAILY PO Last administered on 06/06/18 08:11; Admin Dose 81 MG; Start 06/03/18 at 09:00 Docusate Sodium (Colace) 100 mg BID PO Last administered on 06/06/18 08:11; Admin Dose 100 MG; Start 06/03/18 at 09:00 Digoxin (Digoxin) 0.125 mg DAILY@13 PO Last administered on 06/06/18 14:23; Admin Dose 0.125 MG; Start 06/03/18 at 13:00 Bisacodyl (Dulcolax) 5 mg DAILY PRN PO CONSTIPATION Last administered on 06/04/18 13:14; Admin Dose 5 MG; Start 06/03/18 at 00:00 Lisinopril (Zestril) 5 mg DAILY PO Last administered on 06/06/18 08:13; Admin Dose 5 MG; Start 06/03/18 at 09:00 Diagnostic Test (Pha) (Accu-Chek) 1 ea 02 XX Last administered on 06/04/18at 02:53; Admin Dose 1 EA; Start 06/03/18 at 02:00 Insulin Glargine (Lantus) 30 units DAILY@2000 SC Last administered on 06/05/18 21:06; Admin Dose 30 UNITS; Start 06/03/18 at 20:00 Miscellaneous Information 1 ea NOTE XX ; Start 06/03/18 at 01:00 Glucose (Glutose) 15 gm Q15M PRN PO DECREASED GLUCOSE; Start 06/03/18 at 01:00 Glucose (Glutose) 22.5 gm Q15M PRN PO DECREASED GLUCOSE; Start 06/03/18 at 01:00 Dextrose (D50w Syringe) 25 ml Q15M PRN IV DECREASED GLUCOSE; Start 06/03/18 at 01:00 Dextrose (D50w Syringe) 50 ml Q15M PRN IV DECREASED GLUCOSE; Start 06/03/18 at 01:00 Glucagon (Glucagen) 1 mg Q15M PRN IM DECREASED GLUCOSE; Start 06/03/18 at 01:00 Glucose (Glutose) 15 gm Q15M PRN BUCCAL DECREASED GLUCOSE; Start 06/03/18 at 01:00 Guaifenesin/ Dextromethorphan (Robitussin Dm Liquid Cup) 5 ml Q6H RESP THERAPY PRN PO COUGH Last administered on 06/04/18at 15:25; Admin Dose 5 ML; Start 06/03/18 at 03:30 Atorvastatin Calcium (Lipitor) 10 mg HS PO Last administered on 06/05/18at 21: 07; Admin Dose 10 MG; Start 06/03/18 at 21:00 Levofloxacin/ Dextrose 150 ml @ 100 mls/hr Q24H IVPB Last administered on 06/06/18at 05:49; Admin Dose 100 MLS/HR; Start 06/04/18 at 06:00 Hydromorphone HCl (Dilaudid) 0.5 mg Q6H PRN IV SEVERE PAIN LEVEL 7-10 Last administered on 06/06/18at 10:17; Admin Dose 0.5 MG; Start 06/03/18 at 13:30 Metoprolol Succinate (Toprol Xl) 25 mg BID PO Last administered on 06/06/18at 08:12; Admin Dose 25 MG; Start 06/03/18 at 21:00 Simethicone (Mylicon) 80 mg Q6H PRN PO DISTENSION/GAS/BLOATING Last administered on 06/04/18at 13:52; Admin Dose 80 MG; Start 06/04/18 at 13:30 Zolpidem Tartrate (Ambien) 5 mg HS PRN PO INSOMNIA Last administered on 06/05/18at 21:07; Admin Dose 5 MG; Start 06/04/18 at 17:00 Insulin Human NPH (Humulin N) 5 unit Q12 SC Last administered on 06/06/18at 08:02; Admin Dose 5 UNIT; Start 06/04/18 at 21:00 Furosemide (Lasix) 40 mg BID DIURETICS PO ; Start 06/06/18 at 06:00 Insulin Aspart (Novolog Insulin Pen) NOVOLOG *MODERATE* ALGORITHM WITH MEALS BEDTIME SC Last administered on 06/06/18at 12:04; Admin Dose 4 UNIT; Start 06/05/18 at 22:30 Insulin Aspart (Novolog Insulin Pen) 10 unit QHS PRN SC FOR BS >300 Last administered on 06/05/18at 23:21; Admin Dose 10 UNIT; Start 06/05/18 at 22:30 JOHN BOWERS MD Jun 06, 2018 14:26
[2018-06-06] MEDS: GUAIFENESIN/DM 5ML CUP PO PRN (16:11)
[2018-06-06] MEDS: ALPRAZOLAM 0.25 MG TAB PO PRN (18:46)
[2018-06-06] MEDS: ATORVASTATIN 10 MG TAB PO SCH (20:15)
[2018-06-06] MEDS: ZOLPIDEM 5 MG TAB PO PRN (20:25)
[2018-06-06] MEDS: INSULIN GLARGINE [LANTus] (100 UNITS/ML) SYG SC SCH (21:27)
[2018-06-06] MEDS: INSULIN ASPART [NOVOLOG] 3 ML PEN SC PRN (22:04)
[2018-06-07] VITALS (9 sets, daily range): BP systolic 108–149; BP diastolic 60–75; PULSE 20–88; RESP 20–22
[2018-06-07] MEDS: ALBUTEROL/IPRATROPIUM (NEB) 3 ML AMP HHN SCH ×6 (00:52→21:08)
[2018-06-07] MEDS: ACCU-CHEK XX SCH (02:00)
[2018-06-07] MEDS: HYDROmorphONE 0.5 MG/0.5 ML SYG IV PRN ×4 (03:58→21:52)
[2018-06-07] MEDS: PANTOPRAZOLE (EC) 40 MG TAB PO SCH (05:44)
[2018-06-07] MEDS: LEVOFLOXACIN 750MG/D5W (PMX) 150 ML IVPB SCH (05:44)
[2018-06-07] MEDS: ALPRAZOLAM 0.25 MG TAB PO PRN ×2 (05:44→20:49)
[2018-06-07] MEDS: FUROSEMIDE 40 MG TAB PO SCH ×3 (05:53→17:10)
[2018-06-07] MEDS: INSULIN ASPART [NOVOLOG] 3 ML PEN SC SCH ×4 (07:23→21:05)
[2018-06-07] MEDS: ACETAMINOPHEN 325 MG TAB PO PRN ×2 (07:34→18:44)
[2018-06-07] MEDS: NPH, HUMAN INSULIN ISOPHANE 3ML VIAL SC SCH ×2 (07:52→21:06)
[2018-06-07] MEDS: APIXABAN 5 MG TABLET PO SCH ×2 (08:08→20:49)
[2018-06-07] MEDS: DOCUSATE SODIUM 100 MG CAP PO SCH ×2 (08:08→20:49)
[2018-06-07] MEDS: predniSONE 20 MG TAB PO SCH (08:08)
[2018-06-07] MEDS: METOPROLOL (XL) 25 MG TAB PO SCH ×2 (08:08→20:50)
[2018-06-07] MEDS: LISINOPRIL 5 MG TAB PO SCH (08:08)
[2018-06-07] MEDS: ASPIRIN 81 MG TAB PO SCH (08:08)
--- NOTE | 2018-06-07 11:51 | CONS ---
Consult Date/Type/Reason Admit Date/Time Jun 02, 2018 at 21:00 Initial Consult Date Type of Consult Pulmonary Requesting Provider: ALEKSANDRA SALCIDO MD Date/Time of Note DATE: 06/07/18 TIME: 11:51 Subjective Patient stable this morning still experiencing exertional dyspnea. Expiratory wheeze noted. Objective Vital Signs Date Temp Pulse Resp B/P (MAP) Pulse Ox O2 O2 Flow FiO2 Time Delivery Rate 06/07/18 Nasal 2.0 10:44 Cannula 06/07/18 86 08:32 06/07/18 97.8 20 111/64 97 07:17 (80) 06/03/18 28 17:19 Intake and Output 06/06/18 06/06/18 06/07/18 1515:00 23:00 07:00 IntakeIntake Total 1200 ml 700 ml BalanceBalance 1200 ml 700 ml Exam PHYSICAL EXAMINATION: GENERAL: Well-nourished, well-developed lady, comfortable at rest, VITAL SIGNS: NECK: Supple. No JVD or lymphadenopathy. CARDIAC: S1, S2, no added sounds or murmurs. CHEST: Diminished air entry bilaterally with expiratory wheezes. ABDOMEN: Soft, nontender, obese. EXTREMITIES: No cyanosis, clubbing, 1+ edema. NEUROLOGIC: Grossly intact. No focal deficits. Vent Setting Fraction of Inspired Oxygen pe: 28 Results/Medications Result Diagram: 06/07/18 0521 06/07/18 0521 Results 24 hrs Laboratory Tests Test 06/06/18 12:02 06/06/18 17:02 06/06/18 20:14 06/07/18 02:16 Bedside Glucose 184 347 H 368 H 148 Test 06/07/18 05:21 06/07/18 07:22 06/07/18 11:46 White Blood Count 13.5 #H Red Blood Count 4.21 Hemoglobin 12.5 Hematocrit 42.2 Mean Corpuscular 100.2 Volume Mean Corpuscular 29.7 Hemoglobin Mean Corpuscular 29.6 L Hemoglobin Concent Red Cell 14.5 Distribution Width Platelet Count 228 Mean Platelet Volume 11.4 H Immature 0.700 H Granulocytes % Neutrophils % 66.4 Lymphocytes % 22.7 Monocytes % 9.4 Eosinophils % 0.5 Basophils % 0.3 Nucleated Red Blood 0.0 Cells % Immature 0.090 H Granulocytes # Neutrophils # 9.0 H Lymphocytes # 3.1 H Monocytes # 1.3 H Eosinophils # 0.1 Basophils # 0.0 Nucleated Red Blood 0.0 Cells # Sodium Level 140 Potassium Level 4.0 Chloride Level 98 Carbon Dioxide Level 39 H Anion Gap 3 L Blood Urea Nitrogen 23 H Creatinine 0.71 Est Glomerular > 60 Filtrat Rate mL/min Glucose Level 75 # Hemoglobin A1c 9.4 H Calcium Level 8.9 Bedside Glucose 88 105 Medications Current Medications Apixaban (Eliquis) 5 mg BID PO Last administered on 06/07/18 08:08; Admin Dose 5 MG; Start 06/03/18 at 09:00 Albuterol/ Ipratropium (Duoneb) 3 ml Q4H RESP THERAPY HHN Last administered on 06/07/18 10:43; Admin Dose 3 ML; Start 06/03/18 at 01:00 Albuterol/ Ipratropium (Duoneb) 3 ml Q2H RESP THERAPY PRN HHN SHORTNESS OF BREATH; Start 06/03/18 at 00:00 Pantoprazole (Protonix Tab) 40 mg DAILY@06 PO Last administered on 06/07/18 05:44; Admin Dose 40 MG; Start 06/03/18 at 06:00 Ondansetron HCl (Zofran Inj) 4 mg Q4H PRN IV NAUSEA AND/OR VOMITING Last administered on 06/04/18 15:25; Admin Dose 4 MG; Start 06/03/18 at 00:00 Acetaminophen (Tylenol Tab) 650 mg Q4H PRN PO MILD PAIN(1-3)OR ELEVATED TEMP Last administered on 06/07/18 07:34; Admin Dose 650 MG; Start 06/03/18 at 00:00 Aspirin (Aspirin) 81 mg DAILY PO Last administered on 06/07/18 08:08; Admin Dose 81 MG; Start 06/03/18 at 09:00 Docusate Sodium (Colace) 100 mg BID PO Last administered on 06/07/18 08:08; Admin Dose 100 MG; Start 06/03/18 at 09:00 Digoxin (Digoxin) 0.125 mg DAILY@13 PO Last administered on 06/06/18 14:23; Admin Dose 0.125 MG; Start 06/03/18 at 13:00 Bisacodyl (Dulcolax) 5 mg DAILY PRN PO CONSTIPATION Last administered on 06/04/18 13:14; Admin Dose 5 MG; Start 06/03/18 at 00:00 Lisinopril (Zestril) 5 mg DAILY PO Last administered on 06/07/18at 08:08; Admin Dose 5 MG; Start 06/03/18 at 09:00 Diagnostic Test (Pha) (Accu-Chek) 1 ea 02 XX Last administered on 06/04/18at 02:53; Admin Dose 1 EA; Start 06/03/18 at 02:00 Insulin Glargine (Lantus) 30 units DAILY@2000 SC Last administered on 06/06/18at 21:27; Admin Dose 30 UNITS; Start 06/03/18 at 20:00 Miscellaneous Information 1 ea NOTE XX ; Start 06/03/18 at 01:00 Glucose (Glutose) 15 gm Q15M PRN PO DECREASED GLUCOSE; Start 06/03/18 at 01:00 Glucose (Glutose) 22.5 gm Q15M PRN PO DECREASED GLUCOSE; Start 06/03/18 at 01:00 Dextrose (D50w Syringe) 25 ml Q15M PRN IV DECREASED GLUCOSE; Start 06/03/18 at 01:00 Dextrose (D50w Syringe) 50 ml Q15M PRN IV DECREASED GLUCOSE; Start 06/03/18 at 01:00 Glucagon (Glucagen) 1 mg Q15M PRN IM DECREASED GLUCOSE; Start 06/03/18 at 01:00 Glucose (Glutose) 15 gm Q15M PRN BUCCAL DECREASED GLUCOSE; Start 06/03/18 at 01:00 Guaifenesin/ Dextromethorphan (Robitussin Dm Liquid Cup) 5 ml Q6H RESP THERAPY PRN PO COUGH Last administered on 06/06/18at 16:11; Admin Dose 5 ML; Start 06/03/18 at 03:30 Atorvastatin Calcium (Lipitor) 10 mg HS PO Last administered on 06/06/18at 20:15; Admin Dose 10 MG; Start 06/03/18 at 21:00 Levofloxacin/ Dextrose 150 ml @ 100 mls/hr Q24H IVPB Last administered on 06/07/18at 05:44; Admin Dose 100 MLS/HR; Start 06/04/18 at 06:00 Hydromorphone HCl (Dilaudid) 0.5 mg Q6H PRN IV SEVERE PAIN LEVEL 7-10 Last administered on 06/07/18 10:24; Admin Dose 0.5 MG; Start 06/03/18 at 13:30 Metoprolol Succinate (Toprol Xl) 25 mg BID PO Last administered on 06/07/18 08:08; Admin Dose 25 MG; Start 06/03/18 at 21:00 Simethicone (Mylicon) 80 mg Q6H PRN PO DISTENSION/GAS/BLOATING Last administered on 06/07/18 07:34; Admin Dose 80 MG; Start 06/04/18 at 13:30 Zolpidem Tartrate (Ambien) 5 mg HS PRN PO INSOMNIA Last administered on 05/22 20:25; Admin Dose 5 MG; Start 06/04/18 at 17:00 Insulin Human NPH (Humulin N) 5 unit Q12 SC Last administered on 06/07/18 07:52; Admin Dose 5 UNIT; Start 06/04/18 at 21:00 Furosemide (Lasix) 40 mg BID DIURETICS PO Last administered on 06/07/18 08:23; Admin Dose 40 MG; Start 06/06/18 at 06:00 Insulin Aspart (Novolog Insulin Pen) NOVOLOG *MODERATE* ALGORITHM WITH MEALS BEDTIME SC Last administered on 06/06/18 21:27; Admin Dose 4 UNIT; Start 06/05/18 at 22:30 Insulin Aspart (Novolog Insulin Pen) 10 unit QHS PRN SC FOR BS >300 Last administered on 06/06/18 22:04; Admin Dose 10 UNIT; Start 06/05/18 at 22:30 Prednisone (Prednisone) 20 mg DAILY PO Last administered on 06/07/18 08:08; Admin Dose 20 MG; Start 06/07/18 at 09:00 Alprazolam (Xanax) 0.25 mg Q12H PRN PO ANXIETY Last administered on 06/07/18 05:44; Admin Dose 0.25 MG; Start 06/06/18 at 16:00 Assessment/Plan Hospital Course (Demo Recall) IMPRESSION 1. Congestive heart failure. 2. Likely asthmatic bronchitis. 3. Probable underlying obstructive sleep apnea. Recs 1. Continue diuresis. 2. Continue bronchodilator treatment. 3. Short steroid taper. 4. DVT and GI prophylaxis. 5. Encourage OOB Hopefully home tomorrow. SLOANE FRASER MD, [facility] Jun 07, 2018 11:51
[2018-06-07] MEDS: DIGOXIN 0.125 MG TAB PO SCH (13:05)
--- NOTE | 2018-06-07 13:49 | CONS ---
Consult Date/Type/Reason Admit Date/Time Jun 02, 2018 at 21:00 Initial Consult Date Requesting Provider: ALEKSANDRA SALCIDO MD Date/Time of Note DATE: 06/07/18 TIME: 13:47 Subjective NO acute events - pt feels better today - no CP noted. ROS: No fever, no chills, no nausea, no vomiting, no diarrhea/constipation No recent weight changes No chest pain, no PND, no orthopnea - chronic SOB No dizziness, blurred vision No thirst, no heat or cold intolerance Objective Vitals Vital Signs Date Temp Pulse Resp B/P (MAP) Pulse Ox O2 O2 Flow FiO2 Time Delivery Rate 06/07/18 88 12:13 06/07/18 98.3 22 108/60 98 12:06 (76) 06/07/18 Nasal 2.0 10:44 Cannula 06/03/18 28 17:19 Intake and Output 06/06/18 06/06/18 06/07/18 1515:00 23:00 07:00 IntakeIntake Total 1200 ml 700 ml BalanceBalance 1200 ml 700 ml Exam General: WN/WD/NAD, AOx 3 HEENT: Unicetric/atraumatic/EOMI (follow commands) NECK: JVD elevated, no thyromegaly Lymph: no lymphadenopathy HEART: regular with no S3, II/ systolic murmur at apex, PMI L LUNGS: Coarse sounds ABD: soft, NT, ND, +BS : Intact Neuro: non focal SKIN: chronic changes EXT: 1+ edema Results/Medications Result Diagram: 06/07/18 0506/07/18 0521 Results 24 hrs Laboratory Tests Test 06/06/18 17:02 06/06/18 20:14 06/07/18 02:16 06/07/18 05:21 Bedside Glucose 347 H 368 H 148 White Blood Count 13.5 #H Red Blood Count 4.21 Hemoglobin 12.5 Hematocrit 42.2 Mean Corpuscular 100.2 Volume Mean Corpuscular 29.7 Hemoglobin Mean Corpuscular 29.6 L Hemoglobin Concent Red Cell 14.5 Distribution Width Platelet Count 228 Mean Platelet Volume 11.4 H Immature 0.700 H Granulocytes % Neutrophils % 66.4 Lymphocytes % 22.7 Monocytes % 9.4 Eosinophils % 0.5 Basophils % 0.3 Nucleated Red Blood 0.0 Cells % Immature 0.090 H Granulocytes # Neutrophils # 9.0 H Lymphocytes # 3.1 H Monocytes # 1.3 H Eosinophils # 0.1 Basophils # 0.0 Nucleated Red Blood 0.0 Cells # Sodium Level 140 Potassium Level 4.0 Chloride Level 98 Carbon Dioxide Level 39 H Anion Gap 3 L Blood Urea Nitrogen 23 H Creatinine 0.71 Est Glomerular > 60 Filtrat Rate mL/min Glucose Level 75 # Hemoglobin A1c 9.4 H Calcium Level 8.9 Test 06/07/18 07:22 06/07/18 11:46 Bedside Glucose 88 105 Home Meds Active Scripts Pantoprazole* (Protonix*) 40 Mg Tablet.dr, 40 MG PO DAILY for 30 Days, TAB Prov:ALEKSANDRA SALCIDO MD 04/22/18 Apixaban* (Eliquis*) 5 Mg Tablet, 5 MG PO BID for 30 Days, TAB Prov:ALEKSANDRA SALCIDO MD 04/22/18 Digoxin* (Digitek*) 125 Mcg Tablet, 0.125 MG PO DAILY@13 for 30 Days, TAB Prov:ALEKSANDRA SALCIDO MD 04/22/18 Ipratropium-Albuterol (Ipratropium-Albuterol) 0.5-3 Mg/3 Ml Ampul.neb, 3 ML INHALATION Q4H PRN for WHEEZING AND SOB for 10 Days, #3 VIAL Prov:ALEKSANDRA SALCIDO MD 04/22/18 Furosemide* (Furosemide*) 40 Mg Tablet, 40 MG PO BID for 30 Days, TAB Prov:ALEKSANDRA SALCIDO MD 04/22/18 Lorazepam* (Ativan*) 0.5 Mg Tablet, 0.5 MG PO HS PRN for ANXIETY for 5 Days, #30 TAB Prov:ALEKSANDRA SALCIDO MD 04/22/18 Insulin Glargine,Hum.rec.anlog (Basaglar Kwikpen U-100) 100 Unit/1 Ml Insuln.pen, 30 UNIT SC QHS for 30 Days, EA Prov:ALEKSANDRA SALCIDO MD 04/22/18 Quetiapine Fumarate* (Seroquel*) 100 Mg Tablet, 100 MG PO DAILY, #30 TAB Prov:ALEKSANDRA SALCIDO MD 04/22/18 Metformin Hcl* (Metformin Hcl*) 1,000 Mg Tablet, 1000 MG PO WITH BREAKFAST DINNE for 30 Days, #60 TAB Prov:ALEKSANDRA SALCIDO MD 04/22/18 Docusate Sodium* (Colace*) 100 Mg Capsule, 100 MG PO Q12H for 30 Days, #60 CAP Prov:ALEKSANDRA SALCIDO MD 04/22/18 Atorvastatin Calcium (Atorvastatin Calcium) 10 Mg Tablet, 10 MG PO QHS for 30 Days, #30 TAB Prov:ALEKSANDRA SALCIDO MD 04/22/18 Aspirin* (Aspirin* EC) 81 Mg Tablet.dr, 81 MG PO DAILY for 30 Days, TAB Prov:ALEKSANDRA SALCIDO MD 04/22/18 Ibuprofen* (Motrin*) 600 Mg Tab, 600 MG PO Q6, #30 TAB Prov:NAIN KINGSLEY PA-C 02/16/18 Reported Medications Insulin Lispro (Humalog Kwikpen U-100) 100 Unit/1 Ml Insuln.pen, 0 SQ SLIDING SCALE, EA 06/02/18 Metoprolol Succinate* (Toprol XL*) 25 Mg Tab.sr.24h, 25 MG PO BID, #30 TAB 06/02/18 Lisinopril* (Lisinopril*) 5 Mg Tablet, 5 MG PO DAILY, #30 TAB 06/02/18 Bisacodyl* (Bisacodyl*) 5 Mg Tablet.dr, 5 MG PO DAILY PRN for NEEDED, TAB 01/28/18 Discontinued Scripts Amoxicillin/Potassium Clav (Amox-Clav 875-125 mg Tablet) 875-125 mg Tab, 1 TAB PO BID for 6 Days, #20 TAB Prov:ALEKSANDRA SALCIDO MD 04/22/18 Prednisone* (Prednisone*) 20 Mg Tab, 20 MG PO DAILY, #10 TAB Prov:ALEKSANDRA SALCIDO MD 04/22/18 Metoprolol Succinate* (Toprol XL*) 25 Mg Tab.sr.24h, 12.5 MG PO BID for 30 Days Prov:ALEKSANDRA SALCIDO MD 04/22/18 Hydrocodone/Acetaminophen ([place] 5-325 Tablet) 1 Each Tablet, 1 TAB PO Q6H PRN for PAIN for 3 Days, #20 TAB Prov:ALEKSANDRA SALCIDO MD 04/22/18 Lisinopril* (Lisinopril*) 5 Mg Tablet, 2.5 MG PO DAILY for 30 Days, TAB Prov:ALEKSANDRA SALCIDO MD 04/22/18 Medications Current Medications Apixaban (Eliquis) 5 mg BID PO Last administered on 06/07/18 08:08; Admin Dose 5 MG; Start 06/03/18 at 09:00 Albuterol/ Ipratropium (Duoneb) 3 ml Q4H RESP THERAPY HHN Last administered on 06/07/18at 10:43; Admin Dose 3 ML; Start 06/03/18 at 01:00 Albuterol/ Ipratropium (Duoneb) 3 ml Q2H RESP THERAPY PRN HHN SHORTNESS OF BREATH; Start 06/03/18 at 00:00 Pantoprazole (Protonix Tab) 40 mg DAILY@06 PO Last administered on 06/07/18 05:44; Admin Dose 40 MG; Start 06/03/18 at 06:00 Ondansetron HCl (Zofran Inj) 4 mg Q4H PRN IV NAUSEA AND/OR VOMITING Last ad ministered on 06/04/18 15:25; Admin Dose 4 MG; Start 06/03/18 at 00:00 Acetaminophen (Tylenol Tab) 650 mg Q4H PRN PO MILD PAIN(1-3)OR ELEVATED TEMP Last administered on 06/07/18 07:34; Admin Dose 650 MG; Start 06/03/18 at 00:00 Aspirin (Aspirin) 81 mg DAILY PO Last administered on 06/07/18 08:08; Admin Dose 81 MG; Start 06/03/18 at 09:00 Docusate Sodium (Colace) 100 mg BID PO Last administered on 06/07/18 08:08; Admin Dose 100 MG; Start 06/03/18 at 09:00 Digoxin (Digoxin) 0.125 mg DAILY@13 PO Last administered on 06/07/18 13:05; Admin Dose 0.125 MG; Start 06/03/18 at 13:00 Bisacodyl (Dulcolax) 5 mg DAILY PRN PO CONSTIPATION Last administered on 06/04/18 13:14; Admin Dose 5 MG; Start 06/03/18 at 00:00 Lisinopril (Zestril) 5 mg DAILY PO Last administered on 06/07/18 08:08; Admin Dose 5 MG; Start 06/03/18 at 09:00 Diagnostic Test (Pha) (Accu-Chek) 1 ea 02 XX Last administered on 06/04/18at 02:53; Admin Dose 1 EA; Start 06/03/18 at 02:00 Insulin Glargine (Lantus) 30 units DAILY@2000 SC Last administered on 06/06/18at 21:27; Admin Dose 30 UNITS; Start 06/03/18 at 20:00 Miscellaneous Information 1 ea NOTE XX ; Start 06/03/18 at 01:00 Glucose (Glutose) 15 gm Q15M PRN PO DECREASED GLUCOSE; Start 06/03/18 at 01:00 Glucose (Glutose) 22.5 gm Q15M PRN PO DECREASED GLUCOSE; Start 06/03/18 at 01:00 Dextrose (D50w Syringe) 25 ml Q15M PRN IV DECREASED GLUCOSE; Start 06/03/18 at 01:00 Dextrose (D50w Syringe) 50 ml Q15M PRN IV DECREASED GLUCOSE; Start 06/03/18 at 01:00 Glucagon (Glucagen) 1 mg Q15M PRN IM DECREASED GLUCOSE; Start 06/03/18 at 01:00 Glucose (Glutose) 15 gm Q15M PRN BUCCAL DECREASED GLUCOSE; Start 06/03/18 at 01:00 Guaifenesin/ Dextromethorphan (Robitussin Dm Liquid Cup) 5 ml Q6H RESP THERAPY PRN PO COUGH Last administered on 06/06/18at 16:11; Admin Dose 5 ML; Start 06/03/18 at 03:30 Atorvastatin Calcium (Lipitor) 10 mg HS PO Last administered on 06/06/18at 20:15; Admin Dose 10 MG; Start 06/03/18 at 21:00 Levofloxacin/ Dextrose 150 ml @ 100 mls/hr Q24H IVPB Last administered on 06/07/18at 05:44; Admin Dose 100 MLS/HR; Start 06/04/18 at 06:00 Hydromorphone HCl (Dilaudid) 0.5 mg Q6H PRN IV SEVERE PAIN LEVEL 7-10 Last administered on 06/07/18at 10:24; Admin Dose 0.5 MG; Start 06/03/18 at 13:30 Metoprolol Succinate (Toprol Xl) 25 mg BID PO Last administered on 06/07/18at 08:08; Admin Dose 25 MG; Start 06/03/18 at 21:00 Simethicone (Mylicon) 80 mg Q6H PRN PO DISTENSION/GAS/BLOATING Last administered on 06/07/18 07:34; Admin Dose 80 MG; Start 06/04/18 at 13:30 Zolpidem Tartrate (Ambien) 5 mg HS PRN PO INSOMNIA Last administered on 06/06/18 20:25; Admin Dose 5 MG; Start 06/04/18 at 17:00 Insulin Human NPH (Humulin N) 5 unit Q12 SC Last administered on 06/07/18 07:52; Admin Dose 5 UNIT; Start 06/04/18 at 21:00 Furosemide (Lasix) 40 mg BID DIURETICS PO Last administered on 06/07/18 08:23; Admin Dose 40 MG; Start 06/06/18 at 06:00 Insulin Aspart (Novolog Insulin Pen) NOVOLOG *MODERATE* ALGORITHM WITH MEALS BEDTIME SC Last administered on 06/06/18 21:27; Admin Dose 4 UNIT; Start 06/05/18 at 22:30 Insulin Aspart (Novolog Insulin Pen) 10 unit QHS PRN SC FOR BS >300 Last administered on 06/06/18 22:04; Admin Dose 10 UNIT; Start 06/05/18 at 22:30 Prednisone (Prednisone) 20 mg DAILY PO Last administered on 06/07/18 08:08; Ad min Dose 20 MG; Start 06/07/18 at 09:00 Alprazolam (Xanax) 0.25 mg Q12H PRN PO ANXIETY Last administered on 06/07/18 05:44; Admin Dose 0.25 MG; Start 06/06/18 at 16:00 Assessment/Plan Hospital Course (Demo Recall) 1. Congestive heart failure exacerbation, systolic, acute on chronic - better now, improved SOB. 2. Cardiomyopathy with decreased left ventricular ejection fraction approximately 25% by echo 03/2018. Outpt ICD eval advised. 3. Hypertension, under reasonable control. Con't to adjust Rx. 4. Dyslipidemia. 5. Chronic obstructive pulmonary disease exacerbation-improving - pulmoary team follows. 6. Positive tobacco. 7. History of paroxysmal atrial fibrillation, atrial flutter on anticoagulation in sinus rhythm at this time. 8. Diabetes mellitus. JOHN BOWERS MD Jun 07, 2018 13:49
[2018-06-07] MEDS: GUAIFENESIN/DM 5ML CUP PO PRN (14:50)
--- NOTE | 2018-06-07 18:06 | PN ---
Date/Time of Note Date/Time of Note DATE: 06/07/18 TIME: 18:04 Assessment/Plan VTE Prophylaxis Risk score (from [facility])>0 risk: 3 SCD applied (from [facility]): No SCD contraindicated: other Pharmacological prophylaxis: other Pharm contraindication: other Lines/Catheters IV Catheter Type (from [facility]): Mid Line Urinary Cath still in place: No Assessment/Plan Hospital Course 1. chronic obstructive pulmonary disease/congestive heart failure exacerbation. 2. OBESITHY 3. Metabolic alkalosis. 4. Diabetes, uncontrolled. 5. Hypertension. 6. History of congestive heart failure with ejection fraction of 25% to 30%. 7. History of chronic atrial fibrillation. 8. Morbid obesity. 9. Abdominal wall hernia. PLAN PT OT Result Diagram: 06/07/1852006/07/18520 Results 24hrs Laboratory Tests Test 06/06/18 20:14 06/07/18 02:16 06/07/18 05:21 06/07/18 07:22 Bedside Glucose 368 H 148 88 White Blood Count 13.5 #H Red Blood Count 4.21 Hemoglobin 12.5 Hematocrit 42.2 Mean Corpuscular 100.2 Volume Mean Corpuscular 29.7 Hemoglobin Mean Corpuscular 29.6 L Hemoglobin Concent Red Cell 14.5 Distribution Width Platelet Count 228 Mean Platelet Volume 11.4 H Immature 0.700 H Granulocytes % Neutrophils % 66.4 Lymphocytes % 22.7 Monocytes % 9.4 Eosinophils % 0.5 Basophils % 0.3 Nucleated Red Blood 0.0 Cells % Immature 0.090 H Granulocytes # Neutrophils # 9.0 H Lymphocytes # 3.1 H Monocytes # 1.3 H Eosinophils # 0.1 Basophils # 0.0 Nucleated Red Blood 0.0 Cells # Sodium Level 140 Potassium Level 4.0 Chloride Level 98 Carbon Dioxide Level 39 H Anion Gap 3 L Blood Urea Nitrogen 23 H Creatinine 0.71 Est Glomerular > 60 Filtrat Rate mL/min Glucose Level 75 # Hemoglobin A1c 9.4 H Calcium Level 8.9 Test 06/07/18 11:46 06/07/18 17:13 Bedside Glucose 105 284 H Subjective 24 Hr Interval Summary Subjective hx not possible: other (SOB BETTER) Exam/Review of Systems Exam Vitals Vital Signs Date Temp Pulse Resp B/P (MAP) Pulse Ox O2 O2 Flow FiO2 Time Delivery Rate 2/17/19 85 16:18 06/07/18 97.8 21 108/60 97 15:19 (76) 06/07/18 2.0 14:04 06/07/18 Nasal 14:03 Cannula 06/03/18 28 17:19 Intake and Output 06/06/18 06/06/18 06/07/18 1414:59 22:59 06:59 IntakeIntake Total 1200 ml 700 ml BalanceBalance 1200 ml 700 ml Constitutional: other (FEELING BETER) Respiratory: diminished breath sounds, intercostal retraction Cardiovascular: regular rate and rhythm Gastrointestinal: soft, nl liver, spleen Extremities: No edema Results Results 24hrs Laboratory Tests Test 06/06/18 20:14 06/07/18 02:16 06/07/18 05:21 06/07/18 07:22 Bedside Glucose 368 H 148 88 White Blood Count 13.5 #H Red Blood Count 4.21 Hemoglobin 12.5 Hematocrit 42.2 Mean Corpuscular 100.2 Volume Mean Corpuscular 29.7 Hemoglobin Mean Corpuscular 29.6 L Hemoglobin Concent Red Cell 14.5 Distribution Width Platelet Count 228 Mean Platelet Volume 11.4 H Immature 0.700 H Granulocytes % Neutrophils % 66.4 Lymphocytes % 22.7 Monocytes % 9.4 Eosinophils % 0.5 Basophils % 0.3 Nucleated Red Blood 0.0 Cells % Immature 0.090 H Granulocytes # Neutrophils # 9.0 H Lymphocytes # 3.1 H Monocytes # 1.3 H Eosinophils # 0.1 Basophils # 0.0 Nucleated Red Blood 0.0 Cells # Sodium Level 140 Potassium Level 4.0 Chloride Level 98 Carbon Dioxide Level 39 H Anion Gap 3 L Blood Urea Nitrogen 23 H Creatinine 0.71 Est Glomerular > 60 Filtrat Rate mL/min Glucose Level 75 # Hemoglobin A1c 9.4 H Calcium Level 8.9 Test 06/07/18 11:46 06/07/18 17:13 Bedside Glucose 105 284 H Medications Medication Current Medications Apixaban (Eliquis) 5 mg BID PO Last administered on 06/07/18at 08:08; Admin Dose 5 MG; Start 06/03/18 at 09:00 Albuterol/ Ipratropium (Duoneb) 3 ml Q4H RESP THERAPY HHN Last administered on 06/07/18at 13:45; Admin Dose 3 ML; Start 06/03/18 at 01:00 Albuterol/ Ipratropium (Duoneb) 3 ml Q2H RESP THERAPY PRN HHN SHORTNESS OF BREATH; Start 06/03/18 at 00:00 Pantoprazole (Protonix Tab) 40 mg DAILY@06 PO Last administered on 06/07/18 05:44; Admin Dose 40 MG; Start 06/03/18 at 06:00 Ondansetron HCl (Zofran Inj) 4 mg Q4H PRN IV NAUSEA AND/OR VOMITING Last administered on 06/04/18 15:25; Admin Dose 4 MG; Start 06/03/18 at 00:00 Acetaminophen (Tylenol Tab) 650 mg Q4H PRN PO MILD PAIN(1-3)OR ELEVATED TEMP Last administered on 06/07/18 07:34; Admin Dose 650 MG; Start 06/03/18 at 00:00 Aspirin (Aspirin) 81 mg DAILY PO Last administered on 06/07/18 08:08; Admin Dose 81 MG; Start 06/03/18 at 09:00 Docusate Sodium (Colace) 100 mg BID PO Last administered on 06/07/18 08:08; Admin Dose 100 MG; Start 06/03/18 at 09:00 Digoxin (Digoxin) 0.125 mg DAILY@13 PO Last administered on 06/07/18 13:05; Admin Dose 0.125 MG; Start 06/03/18 at 13:00 Bisacodyl (Dulcolax) 5 mg DAILY PRN PO CONSTIPATION Last administered on 06/04/18 13:14; Admin Dose 5 MG; Start 06/03/18 at 00:00 Lisinopril (Zestril) 5 mg DAILY PO Last administered on 06/07/18 08:08; Admin Dose 5 MG; Start 06/03/18 at 09:00 Diagnostic Test (Pha) (Accu-Chek) 1 ea 02 XX Last administered on 06/04/18at 02:53; Admin Dose 1 EA; Start 06/03/18 at 02:00 Insulin Glargine (Lantus) 30 units DAILY@2000 SC Last administered on 06/06/18 21:27; Admin Dose 30 UNITS; Start 06/03/18 at 20:00 Miscellaneous Information 1 ea NOTE XX ; Start 06/03/18 at 01:00 Glucose (Glutose) 15 gm Q15M PRN PO DECREASED GLUCOSE; Start 06/03/18 at 01:00 Glucose (Glutose) 22.5 gm Q15M PRN PO DECREASED GLUCOSE; Start 06/03/18 at 01:00 Dextrose (D50w Syringe) 25 ml Q15M PRN IV DECREASED GLUCOSE; Start 06/03/18 at 01:00 Dextrose (D50w Syringe) 50 ml Q15M PRN IV DECREASED GLUCOSE; Start 06/03/18 at 01:00 Glucagon (Glucagen) 1 mg Q15M PRN IM DECREASED GLUCOSE; Start 06/03/18 at 01:00 Glucose (Glutose) 15 gm Q15M PRN BUCCAL DECREASED GLUCOSE; Start 06/03/18 at 01:00 Guaifenesin/ Dextromethorphan (Robitussin Dm Liquid Cup) 5 ml Q6H RESP THERAPY PRN PO COUGH Last administered on 06/07/18at 14:50; Admin Dose 5 ML; Start 06/03/18 at 03:30 Atorvastatin Calcium (Lipitor) 10 mg HS PO Last administered on 06/06/18at 20:15; Admin Dose 10 MG; Start 06/03/18 at 21:00 Levofloxacin/ Dextrose 150 ml @ 100 mls/hr Q24H IVPB Last administered on 06/07/18at 05:44; Admin Dose 100 MLS/HR; Start 06/04/18 at 06:00 Hydromorphone HCl (Dilaudid) 0.5 mg Q6H PRN IV SEVERE PAIN LEVEL 7-10 Last administered on 06/07/18at 16:21; Admin Dose 0.5 MG; Start 06/03/18 at 13:30 Metoprolol Succinate (Toprol Xl) 25 mg BID PO Last administered on 06/07/18at 08:08; Admin Dose 25 MG; Start 06/03/18 at 21:00 Simethicone (Mylicon) 80 mg Q6H PRN PO DISTENSION/GAS/BLOATING Last administered on 06/07/18at 07:34; Admin Dose 80 MG; Start 06/04/18 at 13:30 Zolpidem Tartrate (Ambien) 5 mg HS PRN PO INSOMNIA Last administered on 06/06/18at 20:25; Admin Dose 5 MG; Start 06/04/18 at 17:00 Insulin Human NPH (Humulin N) 5 unit Q12 SC Last administered on 06/07/18 07:52; Admin Dose 5 UNIT; Start 06/04/18 at 21:00 Furosemide (Lasix) 40 mg BID DIURETICS PO Last administered on 06/07/18 17:10; Admin Dose 40 MG; Start 06/06/18 at 06:00 Insulin Aspart (Novolog Insulin Pen) NOVOLOG *MODERATE* ALGORITHM WITH MEALS BEDTIME SC Last administered on 06/07/18 17:18; Admin Dose 8 UNIT; Start 06/05/18 at 22:30 Insulin Aspart (Novolog Insulin Pen) 10 unit QHS PRN SC FOR BS >300 Last administered on 06/06/18 22:04; Admin Dose 10 UNIT; Start 06/05/18 at 22:30 Prednisone (Prednisone) 20 mg DAILY PO Last administered on 06/07/18 08:08; Admin Dose 20 MG; Start 06/07/18 at 09:00 Alprazolam (Xanax) 0.25 mg Q12H PRN PO ANXIETY Last administered on 06/07/18 05:44; Admin Dose 0.25 MG; Start 06/06/18 at 16:00 MITA HENAO MD Jun 07, 2018 18:06
[2018-06-07] MEDS: ATORVASTATIN 10 MG TAB PO SCH (20:49)
[2018-06-07] MEDS: ZOLPIDEM 5 MG TAB PO PRN (20:49)
[2018-06-07] MEDS: INSULIN GLARGINE [LANTus] (100 UNITS/ML) SYG SC SCH (21:06)
[2018-06-08] VITALS: BP 121/70; PULSE 72; PULSE 78; RESP 19
[2018-06-08] MEDS: ALBUTEROL/IPRATROPIUM (NEB) 3 ML AMP HHN SCH ×3 (01:00→08:26)
[2018-06-08] MEDS: ACCU-CHEK XX SCH (02:00)
[2018-06-08] MEDS: HYDROmorphONE 0.5 MG/0.5 ML SYG IV PRN ×2 (03:58→10:09)
[2018-06-08 04:00] VITALS: BP 131/79; PULSE 70; PULSE 71; RESP 20
[2018-06-08] MEDS: FUROSEMIDE 40 MG TAB PO SCH ×2 (05:39→05:41)
[2018-06-08] MEDS: LEVOFLOXACIN 750MG/D5W (PMX) 150 ML IVPB SCH (05:39)
[2018-06-08] MEDS: PANTOPRAZOLE (EC) 40 MG TAB PO SCH (05:39)
[2018-06-08 07:36] VITALS: BP 117/68; PULSE 72; RESP 18
[2018-06-08] MEDS: INSULIN ASPART [NOVOLOG] 3 ML PEN SC SCH ×2 (07:52→12:00)
[2018-06-08 08:01] VITALS: PULSE 84
[2018-06-08] MEDS: predniSONE 20 MG TAB PO SCH (08:43)
[2018-06-08] MEDS: ASPIRIN 81 MG TAB PO SCH (08:43)
[2018-06-08] MEDS: DOCUSATE SODIUM 100 MG CAP PO SCH (08:43)
[2018-06-08] MEDS: APIXABAN 5 MG TABLET PO SCH (08:43)
[2018-06-08] MEDS: METOPROLOL (XL) 25 MG TAB PO SCH (08:44)
[2018-06-08] MEDS: BISACODYL (EC) 5 MG TAB PO PRN (08:44)
[2018-06-08] MEDS: LISINOPRIL 5 MG TAB PO SCH (08:44)
[2018-06-08] MEDS: NPH, HUMAN INSULIN ISOPHANE 3ML VIAL SC SCH (08:52)
--- NOTE | 2018-06-08 09:15 | PDOCDIS ---
Discharge Instructions DIAGNOSIS Discharge Diagnosis CHF/COPD CONDITION [id number] Patient Condition: [id number] Fair HOME CARE INSTRUCTIONS: [id number] Special Diet: [id number] Carb controlled ACTIVITY: [id number] Activity Restrictions: [id number] Slowly Increase Activity Rest between Activity Avoid heavy lifting FOLLOW UP/APPOINTMENTS Follow-up Plan f/u PCP in 1 week f/u oxyegn at all times return ti ER if has chest pain/sob ALEKSANDRA SALCIDO MD Jun 08, 2018 09:15
[2018-06-08] MEDS ORDERED: LEVO500T48 PO (09:17)
[2018-06-08] MEDS ORDERED: IPRA3AMP29 INHALATION (09:17)
[2018-06-08] MEDS ORDERED: PRED20TA PO (09:17)
[2018-06-08] MEDS ORDERED: GUAI120S26 PO (09:39)
--- NOTE | 2018-06-08 10:45 | DS ---
DATE OF ADMISSION: 06/02/2018 DATE OF DISCHARGE: 06/08/2018 HISTORY OF PRESENT ILLNESS AND HOSPITAL COURSE: This is a 47-year-old female with a past medical his tory of diabetes, hypertension, morbid obesity, hyperlipidemia, systolic congestive heart failure, 25 % to 30%, psychiatric disorder, abdominal wall hernia, afib, admitted to [facility] . Presented to ED, complaining of shortness of breath for past 2 to 3 weeks. According to the patie nt, she was having cough for 2 to 3 weeks. She was taking nebulizer at home. She was trying to go t o the car when she felt short of breath, and left-sided chest pain prompted her to go to the Emergenc y Department. On admission, vital signs were temperature 98.1, heart rate 113, respirations 33, bloo d pressure 155/90, saturating 90%, was put on mask and put on BiPAP. White count 9.2, hemoglobin 12. 9, BUN of 13, creatinine 0.8. The patient was in moderate respiratory distress, diffuse wheezes and coarse breath sounds. EKG showed sinus tachycardia. Chest x-ray showed moderate pulmonary vascular congestion. The patient was put on BiPAP and given albuterol, Atrovent, Solu-Medrol and was admitted for further management. The patient was also started on IV Levaquin. The patient was seen by cardi ology consultation with Dr. Hall and their recommendations were followed. The patient will continu e on beta rianna, MAO, statin. The patient was also continued on IV then p.o. Lasix. The patient's condition was slowly improving every day. However, during the course of the hospital, patient also fell in the bathroom, had some swelling of the left eyelid, had a CT of the head that showed right pa rietal swelling noted without underlying skull fracture, and the patient also had abdominal x-ray josh t showed moderate to large amount of stool. The patient was given stool softeners feeling much consuelo r. Her Solu-Medrol was tapered and the patient's white count was 13.5. The patient did not show any signs of infection and currently stable to be discharged. ABG done on 06/03/2018 showed pH of 7.34, pCO2 of 74, pO2 of 90. The patient uses oxygen at home. FINAL DISCHARGE DIAGNOSES: 1. Chronic obstructive pulmonary disease, shortness of breath secondary to congestive heart failure exacerbation/chronic obstructive pulmonary disease. 2. Diabetes. 3. Hypertension. 4. Acute on chronic systolic heart failure. 5. Obesity. 6. History of chronic atrial fibrillation. 7. Abdominal wall hernia. 8. Metabolic alkalosis. 9. Elevated, uncontrolled blood sugars, likely secondary to steroids. 10. Severe constipation. DISCHARGE CONDITION: Good. DISCHARGE DIET: Two-gram sodium, carbohydrate-controlled diet. DISCHARGE MEDICATIONS: 1. Levaquin 500 mg was given for exertional states. Prednisone tapering 20 mg for 5 days, 10 mg for 4 days, 5 mg for 3 days, 2.5 mg for 2 days and then discontinue and also prescription was given for DuoNeb. Continue home medications which are: 1. Eliquis 5 b.i.d. 2. Aspirin 81. 3. Atorvastatin 10. 4. Bisacodyl. 5. Digoxin 0.125. 6. Colace. 7. Lasix 40 b.i.d. 8. Ibuprofen. 9. Lantus 30. 10. Lispro sliding scale. 11. Lisinopril. 12. Ativan 0.5 p.r.n. anxiety. 13. Metformin 1000 b.i.d. with breakfast. 14. Metoprolol 25 b.i.d. 15. Pantoprazole 40 daily. 16. Seroquel 100 at bedtime. The patient was instructed to follow up with PCP in 1 to 2 weeks. Dictated By: ALEKSANDRA MSOS/DEENA Conf#: [id number] DID#: [id number] CC: ALEKSANDRA SALCIDO;*End*
[2018-06-08 11:34] VITALS: BP 121/70; PULSE 78; RESP 18
--- NOTE | 2018-06-08 11:37 | CONS ---
Assessment/Plan Cardiology NYHA: III Heart Failure Type: Acute on Chronic Heart Failure Type: Systolic Assessment/Plan Hospital Course (Demo Recall) IMPRESSION: 1. Congestive heart failure exacerbation, systolic, acute on chronic. 2. Cardiomyopathy with decreased left ventricular ejection fraction approximately 25% by echo 03/2018. 3. Hypertension, under reasonable control. 4. Dyslipidemia. 5. Chronic obstructive pulmonary disease exacerbation-improving 6. Positive tobacco. 7. History of paroxysmal atrial fibrillation, atrial flutter on anticoagulation in sinus rhythm at this time. 8. Diabetes mellitus. Recc: -Tele -serial ecg's -Continue BB/ACEI/statin -Continue digoxin -Contineu eliquis/asa -Contineu lasix now PO and follow volume status clsoely -Continuie abx's/steroids now PO/bronchodilators -D/C planning Consultation Date/Type/Reason Admit Date/Time Jun 02, 2018 at 21:00 Initial Consult Date 06/03/18 Type of Consult Cardiology Reason for Consultation CHF Requesting Provider: ALEKSANDRA SALCIDO MD Date/Time of Note DATE: 06/08/18 TIME: 11:35 Exam/Review of Systems Vital Signs Vitals Vital Signs Date Temp Pulse Resp B/P (MAP) Pulse Ox O2 O2 Flow FiO2 Time Delivery Rate 06/08/18 98.2 78 18 121/70 98 11:34 (87) 06/08/18 Nasal 2.0 07:50 Cannula Intake and Output 06/07/18 06/07/18 06/08/18 1414:59 22:59 06:59 IntakeIntake Total 150 ml 1440 ml 510 ml BalanceBalance 150 ml 1440 ml 510 ml Exam Exam Review of Systems: CONSTITUTIONAL: No fevers, chills. PULMONARY: No sob CARDIOVASCULAR: No chest pain/palpitations GASTROINTESTINAL: No nausea/vomiting. GENITOURINARY: No hematuria/dysuria. MUSCULOSKELETAL: No myagias/arthalgias. PSYCHIATRIC: The patient denies depression. NEUROLOGIC: No weakness Constitutional: alert Psych: no complaints Head: normocephalic ENMT: mucosa pink and moist Neck: supple, jvd (9 cm water) Respiratory: diminished breath sounds (at bases/B) Cardiovascular: regular rate and rhythm Gastrointestinal: soft, non-tender Musculoskeletal: muscle tone (normal) Extremities: edema (none) Labs Result Diagram: 06/07/1852006/07/18 Results 24hrs Laboratory Tests Test 06/07/18 11:46 06/07/18 17:13 06/07/18 20:46 06/08/18 07:51 Bedside Glucose 105 284 H 195 115 Medications Medications Current Medications Apixaban (Eliquis) 5 mg BID PO Last administered on 06/08/18 08:43; Admin Dose 5 MG; Start 06/03/18 at 09:00 Albuterol/ Ipratropium (Duoneb) 3 ml Q4H RESP THERAPY HHN Last administered on 06/08/18 08:26; Admin Dose 3 ML; Start 06/03/18 at 01:00 Albuterol/ Ipratropium (Duoneb) 3 ml Q2H RESP THERAPY PRN HHN SHORTNESS OF BREATH; Start 06/03/18 at 00:00 Pantoprazole (Protonix Tab) 40 mg DAILY@06 PO Last administered on 06/08/18 05:39; Admin Dose 40 MG; Start 06/03/18 at 06:00 Ondansetron HCl (Zofran Inj) 4 mg Q4H PRN IV NAUSEA AND/OR VOMITING Last administered on 06/04/18 15:25; Admin Dose 4 MG; Start 06/03/18 at 00:00 Acetaminophen (Tylenol Tab) 650 mg Q4H PRN PO MILD PAIN(1-3)OR ELEVATED TEMP Last administered on 06/07/18 18:44; Admin Dose 650 MG; Start 06/03/18 at 00:00 Aspirin (Aspirin) 81 mg DAILY PO Last administered on 06/08/18 08:43; Admin Dose 81 MG; Start 06/03/18 at 09:00 Docusate Sodium (Colace) 100 mg BID PO Last administered on 06/08/18 08:43; Ad min Dose 100 MG; Start 06/03/18 at 09:00 Digoxin (Digoxin) 0.125 mg DAILY@13 PO Last administered on 06/07/18 13:05; Admin Dose 0.125 MG; Start 06/03/18 at 13:00 Bisacodyl (Dulcolax) 5 mg DAILY PRN PO CONSTIPATION Last administered on 06/08/18 08:44; Admin Dose 5 MG; Start 06/03/18 at 00:00 Lisinopril (Zestril) 5 mg DAILY PO Last administered on 06/08/18 08:44; Admin Dose 5 MG; Start 06/03/18 at 09:00 Diagnostic Test (Pha) (Accu-Chek) 1 ea 02 XX Last administered on 06/04/18at 02:53; Admin Dose 1 EA; Start 06/03/18 at 02:00 Insulin Glargine (Lantus) 30 units DAILY@2000 SC Last administered on 06/07/18 21:06; Admin Dose 30 UNITS; Start 06/03/18 at 20:00 Miscellaneous Information 1 ea NOTE XX ; Start 06/03/18 at 01:00 Glucose (Glutose) 15 gm Q15M PRN PO DECREASED GLUCOSE; Start 06/03/18 at 01:00 Glucose (Glutose) 22.5 gm Q15M PRN PO DECREASED GLUCOSE; Start 06/03/18 at 01:00 Dextrose (D50w Syringe) 25 ml Q15M PRN IV DECREASED GLUCOSE; Start 06/03/18 at 01:00 Dextrose (D50w Syringe) 50 ml Q15M PRN IV DECREASED GLUCOSE; Start 06/03/18 at 01:00 Glucagon (Glucagen) 1 mg Q15M PRN IM DECREASED GLUCOSE; Start 06/03/18 at 01:00 Glucose (Glutose) 15 gm Q15M PRN BUCCAL DECREASED GLUCOSE; Start 06/03/18 at 01:00 Guaifenesin/ Dextromethorphan (Robitussin Dm Liquid Cup) 5 ml Q6H RESP THERAPY PRN PO COUGH Last administered on 06/07/18at 14:50; Admin Dose 5 ML; Start 06/03/18 at 03:30 Atorvastatin Calcium (Lipitor) 10 mg HS PO Last administered on 06/07/18 20:49; Admin Dose 10 MG; Start 06/03/18 at 21:00 Levofloxacin/ Dextrose 150 ml @ 100 mls/hr Q24H IVPB Last administered on 06/08/18 05:39; Admin Dose 100 MLS/HR; Start 06/04/18 at 06:00 Hydromorphone HCl (Dilaudid) 0.5 mg Q6H PRN IV SEVERE PAIN LEVEL 7-10 Last administered on 06/08/18at 10:09; Admin Dose 0.5 MG; Start 06/03/18 at 13:30 Metoprolol Succinate (Toprol Xl) 25 mg BID PO Last administered on 06/08/18 0 8:44; Admin Dose 25 MG; Start 06/03/18 at 21:00 Simethicone (Mylicon) 80 mg Q6H PRN PO DISTENSION/GAS/BLOATING Last administered on 06/07/18 18:43; Admin Dose 80 MG; Start 06/04/18 at 13:30 Zolpidem Tartrate (Ambien) 5 mg HS PRN PO INSOMNIA Last administered on 06/07/18 20:49; Admin Dose 5 MG; Start 06/04/18 at 17:00 Insulin Human NPH (Humulin N) 5 unit Q12 SC Last administered on 06/08/18 0 8:52; Admin Dose 5 UNIT; Start 06/04/18 at 21:00 Furosemide (Lasix) 40 mg BID DIURETICS PO Last administered on 06/07/18 17:10; Admin Dose 40 MG; Start 06/06/18 at 06:00 Insulin Aspart (Novolog Insulin Pen) NOVOLOG *MODERATE* ALGORITHM WITH MEALS BEDTIME SC Last administered on 06/07/18 21:05; Admin Dose 1 UNIT; Start 06/05/18 at 22:30 Insulin Aspart (Novolog Insulin Pen) 10 unit QHS PRN SC FOR BS >300 Last administered on 06/06/18 22:04; Admin Dose 10 UNIT; Start 06/05/18 at 22:30 Prednisone (Prednisone) 20 mg DAILY PO Last administered on 06/08/18 08:43; Admin Dose 20 MG; Start 06/07/18 at 09:00 Alprazolam (Xanax) 0.25 mg Q12H PRN PO ANXIETY Last administered on 06/07/18 20:49; Admin Dose 0.25 MG; Start 06/06/18 at 16:00 GAGAN GARCIA Jun 08, 2018 11:37
--- NOTE | 2018-06-08 15:06 | CONS ---
Consult Date/Type/Reason Admit Date/Time Jun 02, 2018 at 21:00 Initial Consult Date Type of Consult Pulmonary Requesting Provider: ALEKSANDRA SALCIDO MD Date/Time of Note DATE: 06/08/18 TIME: 15:06 Subjective Patient seen this morning. Remains stable no respiratory distress Objective Vital Signs Date Temp Pulse Resp B/P (MAP) Pulse Ox O2 O2 Flow FiO2 Time Delivery Rate 06/08/18 98.2 78 18 121/70 98 11:34 (87) 06/08/18 Nasal 2.0 07:50 Cannula Intake and Output 06/07/18 06/07/18 06/08/18 1515:00 23:00 07:00 IntakeIntake Total 1440 ml 510 ml BalanceBalance 1440 ml 510 ml Exam PHYSICAL EXAMINATION: GENERAL: Well-nourished, well-developed lady, comfortable at rest, VITAL SIGNS: NECK: Supple. No JVD or lymphadenopathy. CARDIAC: S1, S2, no added sounds or murmurs. CHEST: Diminished air entry bilaterally with expiratory wheezes. ABDOMEN: Soft, nontender, obese. EXTREMITIES: No cyanosis, clubbing, 1+ edema. NEUROLOGIC: Grossly intact. No focal deficits. Vent Setting Fraction of Inspired Oxygen pe: 28 Results/Medications Result Diagram: 06/07/18 0521 06/07/18 0521 Results 24 hrs Laboratory Tests Test 06/07/18 17:13 06/07/18 20:46 06/08/18 07:51 Bedside Glucose 284 H 195 115 Assessment/Plan Hospital Course (Demo Recall) IMPRESSION 1. Congestive heart failure. 2. Likely asthmatic bronchitis. 3. Probable underlying obstructive sleep apnea. Recs 1. Continue diuresis. 2. Continue bronchodilator treatment. 3. Short steroid taper. 4. DVT and GI prophylaxis. 5. Encourage OOB Agree with discharge planning SLOANE FRASER MD, [facility] Jun 08, 2018 15:06
[2018-06-09] MEDS ORDERED: HYDR-3980 PO (22:22)
[2018-06-09] MEDS ORDERED: ONDA4TAB14 PO (22:22)
== END 2018-06-08 12:56 | disposition home or self-care (01) | DRG 190 ==
LOC: E/R 15:15 → 6WM 21:00
PROVIDERS: ADMIT Internal Medicine; ATTEND Internal Medicine
PROC: 5A09357 Assistance with Respiratory Ventilation, Less than 24 Consecutive Hours, Continuous Positive Airway Pressure (ICD-10-PCS; principal; 2018-06-02)
DX: J44.1 Chronic obstructive pulmonary disease with (acute) exacerbation (principal); J96.01 Acute respiratory failure with hypoxia; J96.02 Acute respiratory failure with hypercapnia; I50.23 Acute on chronic systolic (congestive) heart failure; Z68.42 Body mass index [BMI] 45.0-49.9, adult; E87.3 Alkalosis; I42.9 Cardiomyopathy, unspecified; I11.0 Hypertensive heart disease with heart failure; E78.5 Hyperlipidemia, unspecified; E66.01 Morbid (severe) obesity due to excess calories; F31.9 Bipolar disorder, unspecified; F41.9 Anxiety disorder, unspecified; E11.65 Type 2 diabetes mellitus with hyperglycemia; K43.9 Ventral hernia without obstruction or gangrene; K46.9 Unspecified abdominal hernia without obstruction or gangrene; K59.00 Constipation, unspecified; I48.0 Paroxysmal atrial fibrillation; Z87.891 Personal history of nicotine dependence; S09.93XA Unspecified injury of face, initial encounter; W18.30XA Fall on same level, unspecified, initial encounter; Y92.231 Patient bathroom in hospital as the place of occurrence of the external cause; S09.90XA Unspecified injury of head, initial encounter
CPT/HCPCS: 36415; 36600; 70450; 71045; 74018; 80048; 80061; 82803; 82962; 83036; 83605; 83880; 84484; 85025; 85610; 87070; 93005; 94640; 94644; 94660; 94664; 96374; 96375; J1120; J1170; J1815; J1940; J1956; J2060; J2405; J2920; J2930; J3010; J3475; J7512

== ENCOUNTER 2018-06-09 17:45 | Emergency (ER) | payer BC ==
[~2018-06-09] VITALS: Ht 160 cm; Wt 126.0 kg
[~2018-06-09 17:45] MED LIST changes: -AMOX1TAB10 PO; +GUAI120S26 PO; -HYDR-4011 PO; +INSU100I12 SQ; +LEVO500T48 PO
[2018-06-09 17:56] VITALS: Ht 160 cm; Wt 126.0 kg
[2018-06-09] MEDS ORDERED: ONDANSETRON 4 MG INJ IV STA ×2 (18:54→21:34)
[2018-06-09] MEDS ORDERED: HYDROmorphONE 1 MG/ML SYG IV STA ×2 (18:54→21:34)
--- NOTE | 2018-06-09 19:38 | ERD ---
ER Documentation Chief Complaint Chief Complaint sob, chest pain, abdominal pain since yesterday, was discharged yesterday HPI This is a 47-year-old female who is discharged from this hospital last night. The patient was admitted on 212 for COPD exacerbation with congestive heart failure. She has known history of CHF with a EF of 25-30%.. The patient states she was standing in line at a store just prior to arrival when she got substernal chest pressure and then began having nausea and vomiting of green colored vomit. No blood. She says her abdomen hurts where her hernias are the mid abdominal region. She says she does not feel well and should not of been sent home. She says she has had a cough while she was in the hospital that got worse. She says that she has occasional productive sputum but no fever. Denies any diarrhea or back pain dysuria headache. Her chest pain is now gone. ROS All systems reviewed and are negative except as per history of present illness. Medications Home Meds Active Scripts Tsdgiascclv-A-Wogqoutvvu Hb* (Guaifenesin* DM Syrup) 120 Ml Syrup, 5 ML PO Q6H RESP THERAPY PRN for COUGH for 10 Days Prov:ALEKSANDRA SALCIDO MD 06/08/18 Levofloxacin* (Levaquin*) 500 Mg Tablet, 500 MG PO DAILY for 4 Days, TAB Prov:ALEKSANDRA SALCIDO MD 06/08/18 Prednisone* (Prednisone*) 20 Mg Tab, 20 MG PO DAILY for 14 Days, TAB Prov:ALEKSANDRA SALCIDO MD 06/08/18 Ipratropium-Albuterol (Ipratropium-Albuterol) 0.5-3 Mg/3 Ml Ampul.neb, 3 ML INHALATION Q4H PRN for WHEEZING AND SOB for 10 Days, #3 VIAL Prov:ALEKSANDRA SALCIDO MD 06/08/18 Pantoprazole* (Protonix*) 40 Mg Tablet.dr, 40 MG PO DAILY for 30 Days, TAB Prov:ALEKSANDRA SALCIDO MD 04/22/18 Apixaban* (Eliquis*) 5 Mg Tablet, 5 MG PO BID for 30 Days, TAB Prov:ALEKSANDRA SALCIDO MD 04/22/18 Digoxin* (Digitek*) 125 Mcg Tablet, 0.125 MG PO DAILY@13 for 30 Days, TAB Prov:ALEKSANDRA SALCIDO MD 04/22/18 Furosemide* (Furosemide*) 40 Mg Tablet, 40 MG PO BID for 30 Days, TAB Prov:ALEKSANDRA SALCIDO MD 04/22/18 Lorazepam* (Ativan*) 0.5 Mg Tablet, 0.5 MG PO HS PRN for ANXIETY for 5 Days, #30 TAB Prov:ALEKSANDRA SALCIDO MD 04/22/18 Insulin Glargine,Hum.rec.anlog (Basaglar Kwikpen U-100) 100 Unit/1 Ml Insuln.pen, 30 UNIT SC QHS for 30 Days, EA Prov:ALEKSANDRA SALCIDO MD 04/22/18 Quetiapine Fumarate* (Seroquel*) 100 Mg Tablet, 100 MG PO DAILY, #30 TAB Prov:ALEKSANDRA SALCIDO MD 04/22/18 Metformin Hcl* (Metformin Hcl*) 1,000 Mg Tablet, 1000 MG PO WITH BREAKFAST DINNE for 30 Days, #60 TAB Prov:ALEKSANDRA SALCIDO MD 04/22/18 Docusate Sodium* (Colace*) 100 Mg Capsule, 100 MG PO Q12H for 30 Days, #60 CAP Prov:ALEKSANDRA SALCIDO MD 04/22/18 Atorvastatin Calcium (Atorvastatin Calcium) 10 Mg Tablet, 10 MG PO QHS for 30 Days, #30 TAB Prov:ALEKSANDRA SALCIDO MD 04/22/18 Aspirin* (Aspirin* EC) 81 Mg Tablet.dr, 81 MG PO DAILY for 30 Days, TAB Prov:ALEKSANDRA SALCIDO MD 04/22/18 Ibuprofen* (Motrin*) 600 Mg Tab, 600 MG PO Q6, #30 TAB Prov:NAIN KINGSLEY PA-C 02/16/18 Reported Medications Insulin Lispro (Humalog Kwikpen U-100) 100 Unit/1 Ml Insuln.pen, 0 SQ SLIDING SCALE, EA 06/02/18 Metoprolol Succinate* (Toprol XL*) 25 Mg Tab.sr.24h, 25 MG PO BID, #30 TAB 06/02/18 Lisinopril* (Lisinopril*) 5 Mg Tablet, 5 MG PO DAILY, #30 TAB 06/02/18 Bisacodyl* (Bisacodyl*) 5 Mg Tablet.dr, 5 MG PO DAILY PRN for NEEDED, TAB 01/28/18 Discontinued Scripts Amoxicillin/Potassium Clav (Amox-Clav 875-125 mg Tablet) 875-125 mg Tab, 1 TAB PO BID for 6 Days, #20 TAB Prov:ALEKSANDRA SALCIDO MD 04/22/18 Prednisone* (Prednisone*) 20 Mg Tab, 20 MG PO DAILY, #10 TAB Prov:ALEKSANDRA SALCIDO MD 04/22/18 Metoprolol Succinate* (Toprol XL*) 25 Mg Tab.sr.24h, 12.5 MG PO BID for 30 Days Prov:ALEKSANDRA SALCIDO MD 04/22/18 Hydrocodone/Acetaminophen (Mittie 5-325 Tablet) 1 Each Tablet, 1 TAB PO Q6H PRN for PAIN for 3 Days, #20 TAB Prov:ALEKSANDRA SALCIDO MD 04/22/18 Lisinopril* (Lisinopril*) 5 Mg Tablet, 2.5 MG PO DAILY for 30 Days, TAB Prov:ALEKSANDRA SALCIDO MD 04/22/18 Allergies Allergies: Coded Allergies: morphine (Verified Allergy, Mild, 06/02/18) PMhx/Soc History of Surgery: Yes (cholesysetectomy, and hernia repair) Anesthesia Reaction: No Hx Neurological Disorder: No Hx Respiratory Disorders: Yes (COPD, Asthma) Hx Cardiac Disorders: Yes (afib, CHR, HTN) Hx Psychiatric Problems: Yes Hx Miscellaneous Medical Probl: No Hx Alcohol Use: No Hx Substance Use: No Hx Tobacco Use: No FmHx Family History: No coronary disease Physical Exam Vitals Vital Signs Date Temp Pulse Resp B/P (MAP) Pulse Ox O2 O2 Flow FiO2 Time Delivery Rate 06/09/18 97.7 88 15 155/100 98 Nasal 4.0 19:32 (118) Cannula 06/09/18 Nasal 4.0 19:32 Cannula 06/09/18 97.3 103 22 200/111 97 17:56 (140) Physical Exam Const: Well-developed, well-nourished Head: Atraumatic, normocephalic Eyes: Normal Conjunctiva, PERRLA, EOMI, normal sclera, no nystagmus ENT: Normal External Ears, Nose and Mouth, moist mucus membranes. Neck: Full range of motion. No meningismus, no lymphadenopathy. Resp: Clear to auscultation bilaterally, no wheezing, rhonchi, rales Cardio: Regular rate and rhythm, no murmurs, S1 S2 present Abd: Soft, non tender x 4, non distended. Normal bowel sounds, no guarding or rebound, no pulsitile abdominal masses or bruits Skin: No petechiae or rashes, no ecchymosis , no maculopapular rash Back: No midline or flank tenderness Ext: No cyanosis, or edema, FROM x 4, normal inspection, neurovascularly intact x 4 Neur: Awake and alert, STR 5/5 x 4, sensation intact x 4, no focal findings, cerebellum intact Psych: Normal Mood and Affect Result Diagram: 06/09/18200506/09/182005 Results 24 hrs Laboratory Tests Test 06/09/18 19:46 06/09/18 20:06 Bedside Glucose 148 mg/dL White Blood Count 14.4 10^3/ul Red Blood Count 4.92 10^6/ul Hemoglobin 14.4 g/dl Hematocrit 46.6 % Mean Corpuscular Volume 94.7 fl Mean Corpuscular Hemoglobin 29.3 pg Mean Corpuscular Hemoglobin Concent 30.9 g/dl Red Cell Distribution Width 14.4 % Platelet Count 241 10^3/UL Mean Platelet Volume 11.1 fl Immature Granulocytes % 1.200 % Neutrophils % 65.7 % Lymphocytes % 24.7 % Monocytes % 7.7 % Eosinophils % 0.4 % Basophils % 0.3 % Nucleated Red Blood Cells % 0.0 /100WBC Immature Granulocytes # 0.170 10^3/ul Neutrophils # 9.5 10^3/ul Lymphocytes # 3.6 10^3/ul Monocytes # 1.1 10^3/ul Eosinophils # 0.1 10^3/ul Basophils # 0.0 10^3/ul Nucleated Red Blood Cells # 0.0 10^3/ul Sodium Level 138 mmol/L Potassium Level 4.6 mmol/L Chloride Level 95 mmol/L Carbon Dioxide Level 40 mmol/L Anion Gap 3 Blood Urea Nitrogen 18 mg/dl Creatinine 0.53 mg/dl Est Glomerular Filtrat Rate mL/min > 60 mL/min Glucose Level 171 mg/dl Calcium Level 9.0 mg/dl Total Bilirubin 0.2 mg/dl Direct Bilirubin 0.00 mg/dl Indirect Bilirubin 0.2 mg/dl Aspartate Amino Transf (AST/SGOT) 33 IU/L Alanine Aminotransferase (ALT/SGPT) 22 IU/L Alkaline Phosphatase 83 IU/L Troponin I < 0.012 ng/ml Total Protein 7.3 g/dl Albumin 3.8 g/dl Globulin 3.50 g/dl Albumin/Globulin Ratio 1.08 Lipase 51 U/L Serum HCG, Qualitative NEGATIVE Current Medications Medications Dose Sig/Eugenio Start Time Status Last (Trade) Ordered Route PRN Stop Time Admin Dose Reason Admin 1 mg ONCE STAT 06/09/18 DC 06/09/18 Hydromorphone IV 18:54 19:24 HCl 06/09/18 18:58 (Dilaudid) Ondansetron 4 mg ONCE STAT 06/09/18 DC 06/09/18 HCl (Zofran IV 18:54 19:24 Inj) 06/09/18 18:58 1 mg ONCE STAT 06/09/18 DC Hydromorphone IV 21:34 HCl 06/09/18 21:35 (Dilaudid) Ondansetron 4 mg ONCE STAT 06/09/18 DC HCl (Zofran IV 21:34 Inj) 06/09/18 21:35 Procedures/MDM EKG: Rate/Rhythm: Normal Sinus Rhythm,NL intervals QRS, ST, QT: NORMAL [place], QRS, QT] Impression: NORMAL EKG Patient: JEAN-CLAUDE SHAFFER : 1970 Age: 47 Sex: F MR #: [id number] DOS: 06/09/18 1854 Ordering MD: COLBY CHRIS DO Location: E/R Room/Bed: PROCEDURE: XR Chest AP portable CLINICAL INDICATION: Abdominal pain TECHNIQUE: An AP portable radiograph of the chest was submitted. COMPARISON: 06/02/2018 FINDINGS: Support Hardware: None Cardiovascular: The cardiomediastinal silhouette remains moderately enlarged and globular in configuration which could represent cardiomyopathy or pericardial effusion. The pulmonary vasculature appears congested. Lung Wilcox: The interstitial infiltrates seen extend from the perihilar regions have improved. Pleural Spaces: No pneumothorax or pleural effusion is identified. Osseous Structures: The osseous structures appear intact. Soft Tissues: The soft tissues appear generous. IMPRESSION: 1. Persistent moderate globular enlargement of the cardiomediastinal silhouette compatible with cardiomyopathy or pericardial effusion with the pulmonary vasculature congested. 2. See improving interstitial infiltrates suggestive of resolving interstitial edema. 3. No effusion or pneumothorax is evident. Physician Kyle Date Time Electronically viewed and signed by Physician Kyle on 06/09/2018 19:33 RH/ CC: COLBY CHRIS DO [id number] Ordering MD: COLBY CHRIS DO Location: E/R Room/Bed: PROCEDURE: CT abdomen and pelvis without intravenous contrast. CLINICAL INDICATION: Abdominal pain. TECHNIQUE: CT of the abdomen/pelvis was performed utilizing axial images with reconstructions in sagittal and coronal planes. The administered radiation dose is CTDI 23.28 mGy, DLP 1334.23 mGy-cm. One or more of the following dose reduction techniques were used: Automated exposure control, Adjustment of the mA and/or kV according to patient size, or Use of iterative reconstruction technique. DICOM images are available. COMPARISON: CT of the abdomen/pelvis from December 08, 2016. FINDINGS: Lung bases: There is mild bibasilar axis/scarring. There is mild to moderate cardiomegaly without pericardial effusion. CT ABDOMEN: Evaluation of the abdominal viscera is limited without intravenous contrast. Gastrointestinal tract: There are multiple small right anterior abdominal wall ventral hernias with the medial demonstrating a 2.3 cm defect. The lateral demonstrates a loop of colon extending within this region (image 60 series 3). With a 3 cm defect. There is also an anterior abdominal pelvic hernia which contains small bowel loops with a wide defect. There is no bowel obstruction. There are mild colonic diverticula without acute diverticulitis. The appendix is normal size without inflammatory changes.No abnormal colonic wall thickening is identified.There is no pneumoperitoneum. Liver: The liver is normal in size.There is no intrahepatic ductal dilatation. Gallbladder: The patient is status post cholecystectomy. Pancreas: The pancreas is grossly unremarkable. Spleen: The spleen is normal in size. Kidneys: The kidneys are normal in size and contour.No renal calculi identifi ed.There is no evidence of hydronephrosis. Adrenal glands: The bilateral adrenal glands are unremarkable. Retroperitoneum: There is no retroperitoneal adenopathy.The aorta is normal in caliber. CT PELVIS: Pelvic organs: The uterus is present. Bladder: The bladder is unremarkable. There is no pelvic free fluid.No pelvic adenopathy is identified. Osseous structures: No destructive lytic or blastic osseous lesion is identified. There is mild grade 1 anterolisthesis of L4-L5. IMPRESSION: Evaluation of the abdominal viscera is limited without intravenous contrast. 1. Multiple small right anterior abdominal wall ventral hernias with the medial demonstrating a 2.3 cm defect. The lateral demonstrates an increased loop of colon extending within this region. Associated bowel incarceration is not excluded. Correlate with physical examination and/or surgical consultation as clinically warranted. 2. Increased anterior abdominal pelvic hernia which contains small bowel loops with a wide defect. There is no bowel obstruction. 3. Mild diverticulosis without acute diverticulitis. 4. Status post cholecystectomy. 5. Mild to moderate cardiomegaly. Further findings as detailed above. RPTAT: HVF .Declan Rebolledo MD, MD Date Time Electronically viewed and signed by .Declan Rebolledo MD, MD on 06/09/2018 21:29 .F/ CC: COLBY CHRIS DO [id number] The body of the CT scan says the patient does not have a bowel obstruction, the patient says she has had these chronic hernias in her abdominal wall for years. All of them are tender to palpation on exam. While in the ER she is relatively comfortable. Clinically I do not suspect incarcerated hernia but this cannot be ruled out 100% this time but I will admit her to hospital for chest pain and probable consultation with general surgery on her hernia situation Departure Diagnosis: Primary Impression: Chest pain Chest pain type: unspecified Qualified Codes: R07.9 - Chest pain, unspec ified Additional Impressions: Abdominal pain Abdominal location: lower abdomen, unspecified Qualified Codes: R10.30 - Lower abdominal pain, unspecified Abdominal wall hernia Condition: Stable COLBY CHRIS DO Jun 09, 2018 19:38
[2018-06-09] MEDS ORDERED: ONDA4TAB14 PO (22:22)
[2018-06-09] MEDS ORDERED: HYDR-3980 PO (22:22)
[2018-06-10 02:00] VITALS: BP 142/90; PULSE 89; RESP 24
== END 2018-06-10 02:05 | disposition home or self-care (01) ==
LOC: E/R 17:45
DX: R07.9 Chest pain, unspecified (principal); K46.9 Unspecified abdominal hernia without obstruction or gangrene; J44.9 Chronic obstructive pulmonary disease, unspecified; I10 Essential (primary) hypertension; Z79.01 Long term (current) use of anticoagulants; Z79.4 Long term (current) use of insulin; Z79.82 Long term (current) use of aspirin
CPT/HCPCS: 36415; 71045; 74176; 80053; 82962; 83690; 83880; 84484; 84703; 85025; 93005; 96374; 96375; 96376; J1170; J2405; Z7502

== ENCOUNTER 2018-07-15 18:01 | Inpatient (IN) | payer BC ==
[~2018-07-15] VITALS: Ht 154.9 cm; Wt 131.8 kg
[~2018-07-15 18:01] MED LIST changes: +HYDR-3980 PO; -LEVO500T48 PO; +ONDA4TAB14 PO
[2018-07-16] VITALS (11 sets, daily range): BP systolic 85–128; BP diastolic 50–72; PULSE 85–112; RESP 18–20; Ht 154.9 cm; Wt 131.8 kg
[2018-07-16] MEDS ORDERED: ALBUTEROL/IPRATROPIUM (NEB) 3 ML AMP NEB PRN (03:00)
[2018-07-16] MEDS ORDERED: BISACODYL (EC) 5 MG TAB PO PRN ×2 (03:00)
[2018-07-16] MEDS ORDERED: ONDANSETRON (ODT) 4 MG TAB ODT PRN (03:00)
[2018-07-16] MEDS ORDERED: DOCUSATE SODIUM 100 MG CAP PO SCH ×2 (03:00→09:00)
[2018-07-16] MEDS ORDERED: GLUCAGON 1 MG INJ IM PRN (03:30)
[2018-07-16] MEDS ORDERED: DEXTROSE 50% 50 ML SYRINGE IV PRN ×2 (03:30)
[2018-07-16] MEDS ORDERED: GLUCOSE GEL 15 GRAM TUBE PO PRN ×2 (03:30)
[2018-07-16] MEDS ORDERED: GLUCOSE GEL 15 GRAM TUBE BUCCAL PRN (03:30)
[2018-07-16] MEDS: PANTOPRAZOLE (EC) 40 MG TAB PO SCH (05:12)
[2018-07-16] MEDS: FUROSEMIDE 40 MG TAB PO SCH ×2 (05:13→17:33)
[2018-07-16] MEDS: IBUPROFEN 600 MG TAB PO SCH ×3 (05:14→17:33)
[2018-07-16] MEDS ORDERED: INSULIN ASPART [NOVOLOG] 3 ML PEN SC ONE ×2 (08:00→22:00)
[2018-07-16] MEDS ORDERED: INSULIN GLARGINE [LANTus] (100 UNITS/ML) SYG SC SCH ×2 (08:00→21:00)
[2018-07-16] MEDS: LISINOPRIL 5 MG TAB PO SCH (08:08)
[2018-07-16] MEDS: DOCUSATE SODIUM 100 MG CAP PO SCH ×2 (08:08→20:55)
[2018-07-16] MEDS: ASPIRIN 81 MG TAB PO SCH (08:08)
[2018-07-16] MEDS: APIXABAN 5 MG TABLET PO SCH ×2 (08:08→20:52)
[2018-07-16] MEDS: METOPROLOL (XL) 25 MG TAB PO SCH ×2 (08:09→20:50)
[2018-07-16] MEDS: predniSONE 20 MG TAB PO SCH (08:09)
[2018-07-16] MEDS: QUETIAPINE 100 MG TAB PO SCH (08:09)
[2018-07-16] MEDS: metFORMIN 500 MG TAB PO SCH ×2 (08:09→17:33)
[2018-07-16] MEDS: INSULIN GLARGINE [LANTus] (100 UNITS/ML) SYG SC SCH (08:21)
[2018-07-16] MEDS: INSULIN ASPART [NOVOLOG] 3 ML PEN SC SCH ×6 (08:22→20:58)
[2018-07-16] MEDS ORDERED: ASPIRIN (EC) 81 MG TAB PO SCH (09:00)
--- NOTE | 2018-07-16 09:41 | QN ---
Documentation Comment SEEN AND EXAMINED ALEKSANDRA SALCIDO MD Jul 16, 2018 09:41
--- NOTE | 2018-07-16 10:53 | HP ---
DATE OF ADMISSION: 07/16/2018 REASON: The patient is transferred from [facility] secondary to pneumonia. HISTORY OF PRESENT ILLNESS: This is a 48-year-old female well known to our service with multiple adm issions in the past secondary to congestive heart failure, COPD, diabetes, hypertension, morbid obesi ty, hyperlipidemia, systolic congestive heart failure, psychotic disorders, atrial fibrillation, abdo konstantin pain secondary to abdominal wall hernia, presented to the emergency department on [facility] on 07/13/2018 secondary to shortness of breath for the last 3 to 4 days. According to the patient, she was having also cough at home. She came across and her son was sick at home. She w as having intermittent fevers and chills. The patient had chest x-ray, which was done that showed ri ght lower lobe pneumonia. She was treated both for pneumonia and COPD exacerbation and congestive he art failure with IV Lasix and was transferred to [facility] due to insurance reasons. The p atient was also put on BiPAP there. Currently, the patient says that the shortness of breath is some what improved; however, still has abdominal pain. On arrival here, vital signs showed blood pressure 119/72, afebrile, pulse 100, saturating 94%. PAST MEDICAL HISTORY: 1. Diabetes. 2. Hypertension. 3. Hyperlipidemia. 4. Hypercholesterolemia. 5. History of chronic atrial fibrillation. 6. Morbid obesity. 7. History of abdominal wall hernia. 8. History of congestive heart failure, systolic, with ejection fraction of 25% to 30%. ALLERGIES: MORPHINE. PAST SURGICAL HISTORY: None. SOCIAL HISTORY: Former smoker. She denies any history of recreational drug use. Lives with the kid s at home. FAMILY HISTORY: No history of cardiac in the family. REVIEW OF SYSTEM: The patient complained of shortness of breath, productive cough also have some rig ht-sided pain had some chronic abdominal pain. She denies any abdominal pain, nausea, vomiting, diar amelia. She denies any focal neurological deficits. PHYSICAL EXAMINATION: VITAL SIGNS: His blood pressure is 119/72, afebrile, heart rate 100, saturating 94% on 2 liters. GENERAL: The patient is awake, alert, oriented, and does not appear to be in acute distress. HEENT: Pupils are equal, round, reactive to light. NECK: Supple. No JVD. HEART: Regular rate and rhythm. LUNGS: Decreased breath sounds bilaterally. ABDOMEN: Abdominal wall hernia. Positive bowel sounds. EXTREMITIES: Trace edema. DIAGNOSTIC DATA: Glucose is 416. ASSESSMENT AND PLAN: This is a 48-year-old female admitted with; 1. Shortness of breath, likely secondary to chronic obstructive pulmonary disease exacerbation, unde rlying pneumonia, underlying congestive heart failure. 2. Uncontrolled diabetes. 3. Hypertension. 4. Hyperlipidemia. 5. History of atrial fibrillation. 6. Chronic hypercarbic respiratory failure. 7. History of congestive heart failure with ejection fraction of 25% to 30%. 8. Morbid obesity. 9. Abdominal wall hernia. 10. History of metabolic alkalosis. PLAN: At this period of time, the patient is admitted to tele. We will continue the patient on pred nisone nebs around the clock, p.o. Lasix. We will also get an ABG and chest x-ray. Rest of the angel tment will depend on the patient's hospitalization course. Dictated By: ALEKSANDRA MOSS/DEENA Conf#: [id number] DID#: [id number] CC: MITA HENAO MD;*EndCC*
[2018-07-16] MEDS ORDERED: ALTEPLASE (CATHFLO) 2 MG INJ CATHETER PRN (11:00)
[2018-07-16] MEDS ORDERED: AZITHROMYCIN 500 MG in SOD CHLORIDE 0.9% 250 ML IVPB SCH (12:00)
[2018-07-16] MEDS: CEFTRIAXONE 1 GM/50 ML (PMX) 50 ML IVPB SCH (12:06)
[2018-07-16] MEDS ORDERED: ACETAZOLAMIDE 500 MG INJ IV ONE (13:00)
[2018-07-16] MEDS ORDERED: DIGOXIN 0.125 MG TAB PO SCH (13:00)
[2018-07-16] MEDS: ALBUTEROL/IPRATROPIUM (NEB) 3 ML AMP HHN SCH ×2 (14:00→19:58)
[2018-07-16] MEDS: DIGOXIN 0.125 MG TAB PO SCH (14:03)
[2018-07-16] MEDS ORDERED: traMADol 50 MG TAB PO PRN (19:00)
[2018-07-16] MEDS: HYDROCODONE/APAP (10/325) TAB PO PRN (19:06)
[2018-07-16] MEDS: LORAZEPAM 0.5 MG TAB PO PRN (20:50)
[2018-07-16] MEDS: ATORVASTATIN 10 MG TAB PO SCH (20:52)
[2018-07-16] MEDS ORDERED: ATORVASTATIN 10 MG TAB PO SCH (21:00)
[2018-07-16] MEDS ORDERED: INSULIN GLARGINE [LANtus] 3 ML PEN SC SCH (21:00)
[2018-07-17] VITALS (10 sets, daily range): BP systolic 102–119; BP diastolic 68–77; PULSE 75–88; RESP 20
[2018-07-17] MEDS: ALBUTEROL/IPRATROPIUM (NEB) 3 ML AMP HHN SCH ×6 (01:33→20:43)
[2018-07-17] MEDS: ACCUCHECK AT 2AM (Patients on SS coverage) XX SCH (01:57)
[2018-07-17] MEDS ORDERED: ACCU-CHEK XX SCH (02:00)
[2018-07-17] MEDS: GUAIFENESIN/DM 5ML CUP PO PRN ×3 (04:14→20:11)
[2018-07-17] MEDS: HYDROCODONE/APAP (10/325) TAB PO PRN ×2 (04:20→20:18)
[2018-07-17] MEDS: IBUPROFEN 600 MG TAB PO SCH ×4 (06:08→17:24)
[2018-07-17] MEDS: FUROSEMIDE 40 MG TAB PO SCH ×2 (06:09→17:24)
[2018-07-17] MEDS: PANTOPRAZOLE (EC) 40 MG TAB PO SCH (06:09)
[2018-07-17] MEDS: INSULIN ASPART [NOVOLOG] 3 ML PEN SC SCH ×7 (07:40→20:17)
[2018-07-17] MEDS: metFORMIN 500 MG TAB PO SCH ×2 (07:41→17:32)
[2018-07-17] MEDS: INSULIN GLARGINE [LANTus] (100 UNITS/ML) SYG SC SCH (07:47)
[2018-07-17] MEDS ORDERED: HYDROmorphONE 0.5 MG/0.5 ML SYG IV STA (09:48)
[2018-07-17] MEDS: QUETIAPINE 100 MG TAB PO SCH (10:05)
[2018-07-17] MEDS: predniSONE 20 MG TAB PO SCH (10:05)
[2018-07-17] MEDS: APIXABAN 5 MG TABLET PO SCH ×2 (10:05→20:14)
[2018-07-17] MEDS: ASPIRIN 81 MG TAB PO SCH (10:05)
[2018-07-17] MEDS: METOPROLOL (XL) 25 MG TAB PO SCH ×2 (10:06→20:13)
[2018-07-17] MEDS: LISINOPRIL 5 MG TAB PO SCH (10:06)
[2018-07-17] MEDS: DOCUSATE SODIUM 100 MG CAP PO SCH ×2 (10:06→20:14)
--- NOTE | 2018-07-17 10:53 | PN ---
Date/Time of Note Date/Time of Note DATE: 07/17/18 TIME: 10:50 Assessment/Plan VTE Prophylaxis Risk score (from Ns)>0 risk: 2 SCD applied (from Ns): No SCD contraindicated: other Pharmacological prophylaxis: apixaban Lines/Catheters IV Catheter Type (from [facility] PICC Line Central line still needed: Yes Urinary Cath still in place: No Reason Cath still needed: other (indicate) Assessment/Plan Hospital Course 1. Shortness of breath, likely secondary to chronic obstructive pulmonary disease exacerbation, underlying pneumonia, underlying congestive heart failure. 2. Uncontrolled diabetes. 3. Hypertension. 4. Hyperlipidemia. 5. History of atrial fibrillation. 6. Chronic hypercarbic respiratory failure. 7. History of congestive heart failure with ejection fraction of 25% to 30%. 8. Morbid obesity. 9. Abdominal wall hernia. 10. History of metabolic alkalosis. 11. Sleep apnea 12. constipation Assessment/Plan - tele. - continue the patient on prednisone nebs around the clock, -c/w p.o. Lasix. - ABG and chest x-ray. -hypoglycemic control -DVT prophylaxis eliquiz -GI prophylaxis Protonix -constipation regime Result Diagram: 07/16/18 1017 07/16/18 1017 Results 24hrs Laboratory Tests Test 07/16/18 12:05 07/16/18 17:32 07/16/18 20:48 07/17/18 01:56 Bedside Glucose 373 H 287 H 309 H 90 Test 07/17/18 07:39 Bedside Glucose 128 Subjective 24 Hr Interval Summary Respiratory: no complaints, pain, cough, pleuritic pain, shortness of breath, sputum, wheezing, other Cardiovascular: lightheadedness Gastrointestinal: diarrhea; No no complaints, No pain, No blood, No constipation, No decreased appetite, No flatus, No nausea, No passing stool, No vomiting, No other Exam/Review of Systems Exam Vitals Vital Signs Date Temp Pulse Resp B/P (MAP) Pulse Ox O2 O2 Flow FiO2 Time Delivery Rate 07/17/18 81 18 97 Nasal 2.0 08:39 Cannula 07/17/18 98.0 107/71 07:24 (83) Intake and Output 07/16/18 07/16/18 07/17/18 1515:00 23:00 07:00 IntakeIntake Total 1500 ml 450 ml OutputOutput Total 750 ml 600 ml BalanceBalance 750 ml -150 ml Constitutional: alert, oriented Head: normocephalic Eyes: nl conjunctiva ENMT: nl external ears & nose Respiratory: congested cough, crackles/rales, diminished breath sounds, labored breathing Cardiovascular: regular rate and rhythm Gastrointestinal: soft Genitourinary - Female: other (yin) Musculoskeletal: muscle weakness Results Results 24hrs Laboratory Tests Test 07/16/18 12:05 07/16/18 17:32 07/16/18 20:48 07/17/18 01:56 Bedside Glucose 373 H 287 H 309 H 90 Test 07/17/18 07:39 Bedside Glucose 128 Medications Medication Current Medications Insulin Glargine (Lantus) 20 units DAILY@0800 SC Last administered on 07/17/18 07:47; Admin Dose 20 UNITS; Start 07/16/18 at 08:00 Aspirin (Aspirin) 81 mg DAILY PO Last administered on 07/17/18 10:05; Admin Dose 81 MG; Start 07/16/18 at 09:00 Apixaban (Eliquis) 5 mg BID PO Last administered on 07/17/18 10:05; Admin Dose 5 MG; Start 07/16/18 at 09:00 Bisacodyl (Dulcolax) 5 mg DAILY PRN PO CONSTIPATION Last administered on 07/17/18 04:20; Admin Dose 5 MG; Start 07/16/18 at 03:00 Digoxin (Digoxin) 0.125 mg DAILY@13 PO Last administered on 07/16/18 14:03; Admin Dose 0.125 MG; Start 07/16/18 at 13:00 Atorvastatin Calcium (Lipitor) 10 mg QHS PO Last administered on 07/16/18 20:52; Admin Dose 10 MG; Start 07/16/18 at 21:00 Furosemide (Lasix) 40 mg BID DIURETICS PO Last administered on 07/17/18 06:09; Admin Dose 40 MG; Start 07/16/18 at 06:00 Guaifenesin/ Dextromethorphan (Robitussin Dm Liquid Cup) 5 ml Q6H RESP THERAPY PRN PO COUGH Last administered on 07/17/18 04:14; Admin Dose 5 ML; Start 07/16/18 at 03:00 Acetaminophen/ Hydrocodone Bitart ([place] (10/325)) 1 tab Q6H PRN PO PAIN Last administered on 07/17/18 04:20; Admin Dose 1 TAB; Start 07/16/18 at 03:00 Ibuprofen (Motrin) 600 mg Q6 PO Last administered on 07/17/18 06:08; Admin Dose 600 MG; Start 07/16/18 at 06:00 Albuterol/ Ipratropium (Duoneb) 3 ml Q4H RESP THERAPY PRN NEB WHEEZING AND SOB; Start 07/16/18 at 03:00 Lisinopril (Zestril) 5 mg DAILY PO Last administered on 07/17/18 10:06; Admin Dose 5 MG; Start 07/16/18 at 09:00 Lorazepam (Ativan) 0.5 mg HS PRN PO ANXIETY Last administered on 07/16/18 20: 50; Admin Dose 0.5 MG; Start 07/16/18 at 03:00 Metformin HCl (Glucophage) 1,000 mg WITH BREAKFAST DINNE PO Last administered on 07/17/18 07:41; Admin Dose 1,000 MG; Start 07/16/18 at 08:00 Metoprolol Succinate (Toprol Xl) 25 mg BID PO Last administered on 07/17/18 10:06; Admin Dose 25 MG; Start 07/16/18 at 09:00 Ondansetron HCl (Zofran Odt) 4 mg Q6H PRN ODT NAUSEA AND/OR VOMITING; Start 07/16/18 at 03:00 Pantoprazole (Protonix Tab) 40 mg DAILY@0600 PO Last administered on 07/17/18 06:09; Admin Dose 40 MG; Start 07/16/18 at 06:00 Prednisone (Prednisone) 20 mg DAILY PO Last administered on 07/17/18 10:05; Admin Dose 20 MG; Start 07/16/18 at 09:00 Quetiapine Fumarate (Seroquel) 100 mg DAILY PO Last administered on 07/17/18 10:05; Admin Dose 100 MG; Start 07/16/18 at 09:00 Docusate Sodium (Colace) 100 mg Q12H PO Last administered on 07/17/18 10:06; Admin Dose 100 MG; Start 07/16/18 at 09:00 Insulin Aspart (Novolog Insulin Pen) NOVOLOG *MILD* ALGORITHM WITH MEALS BEDTIME SC Last administered on 07/16/18at 20:58; Admin Dose 4 UNIT; Start 07/16/18 at 08:00 Miscellaneous Information 1 ea NOTE XX ; Start 07/16/18 at 03:30 Glucose (Glutose) 15 gm Q15M PRN PO DECREASED GLUCOSE; Start 07/16/18 at 03:30 Glucose (Glutose) 22.5 gm Q15M PRN PO DECREASED GLUCOSE; Start 07/16/18 at 03:30 Dextrose (D50w Syringe) 25 ml Q15M PRN IV DECREASED GLUCOSE; Start 07/16/18 at 03:30 Dextrose (D50w Syringe) 50 ml Q15M PRN IV DECREASED GLUCOSE; Start 07/16/18 at 03:30 Glucagon (Glucagen) 1 mg Q15M PRN IM DECREASED GLUCOSE; Start 07/16/18 at 03:30 Glucose (Glutose) 15 gm Q15M PRN BUCCAL DECREASED GLUCOSE; Start 07/16/18 at 03:30 Diagnostic Test (Pha) (Accu-Chek) 1 ea 02 XX Last administered on 07/17/18at 01:57; Admin Dose 1 EA; Start 07/17/18 at 02:00 Albuterol/ Ipratropium (Duoneb) 3 ml Q4H RESP THERAPY HHN Last administered on 07/17/18at 08:39; Admin Dose 3 ML; Start 07/16/18 at 13:00 Insulin Aspart (Novolog Insulin Pen) 7 unit WITH MEALS SC Last administered on 07/17/18at 07:47; Admin Dose 7 UNIT; Start 07/16/18 at 12:00 Ceftriaxone Sodium 50 ml @ 100 mls/hr Q24H IVPB Last administered on 07/16/18at 12:06; Admin Dose 100 MLS/HR; Start 07/16/18 at 12:00 Tramadol HCl (Ultram) 50 mg Q6H PRN PO MODERATE PAIN LEVEL 4-6; Start 07/16/18 at 19:00 MELANIA LAMBERT Jul 17, 2018 10:53
[2018-07-17] MEDS ORDERED: POLYETHYLENE GLYCOL 17 GM PACKET PO PRN (11:30)
[2018-07-17] MEDS: LACTULOSE 30ML CUP PO SCH ×2 (13:12→22:00)
[2018-07-17] MEDS: DIGOXIN 0.125 MG TAB PO SCH (13:12)
[2018-07-17] MEDS: CEFTRIAXONE 1 GM/50 ML (PMX) 50 ML IVPB SCH (13:12)
[2018-07-17] MEDS ORDERED: ALTEPLASE (CATHFLO) 2 MG INJ CATHETER ONE (19:30)
[2018-07-17] MEDS ORDERED: ALTEPLASE (CATHFLO) 2 MG INJ CATHETER PRN (19:30)
[2018-07-17] MEDS: LORAZEPAM 0.5 MG TAB PO PRN (20:13)
[2018-07-17] MEDS: ATORVASTATIN 10 MG TAB PO SCH (20:14)
[2018-07-18] VITALS (10 sets, daily range): BP systolic 102–119; BP diastolic 62–81; PULSE 75–98; RESP 18–20
[2018-07-18] MEDS: ALBUTEROL/IPRATROPIUM (NEB) 3 ML AMP HHN SCH ×6 (00:26→20:50)
[2018-07-18] MEDS: ACCUCHECK AT 2AM (Patients on SS coverage) XX SCH (02:02)
[2018-07-18] MEDS: PANTOPRAZOLE (EC) 40 MG TAB PO SCH (05:12)
[2018-07-18] MEDS: IBUPROFEN 600 MG TAB PO SCH ×4 (05:13→17:20)
[2018-07-18] MEDS: FUROSEMIDE 40 MG TAB PO SCH ×3 (05:13→17:32)
[2018-07-18] MEDS: LACTULOSE 30ML CUP PO SCH ×2 (05:15→13:19)
[2018-07-18] MEDS: INSULIN ASPART [NOVOLOG] 3 ML PEN SC SCH ×7 (07:46→20:23)
[2018-07-18] MEDS: metFORMIN 500 MG TAB PO SCH ×2 (07:46→17:20)
[2018-07-18] MEDS: INSULIN GLARGINE [LANTus] (100 UNITS/ML) SYG SC SCH (07:57)
[2018-07-18] MEDS: ASPIRIN 81 MG TAB PO SCH (08:54)
[2018-07-18] MEDS: DOCUSATE SODIUM 100 MG CAP PO SCH ×2 (08:54→20:24)
[2018-07-18] MEDS: METOPROLOL (XL) 25 MG TAB PO SCH ×2 (08:55→20:12)
[2018-07-18] MEDS: LISINOPRIL 5 MG TAB PO SCH (08:55)
[2018-07-18] MEDS: APIXABAN 5 MG TABLET PO SCH ×2 (08:55→20:11)
[2018-07-18] MEDS: QUETIAPINE 100 MG TAB PO SCH (08:55)
[2018-07-18] MEDS: predniSONE 20 MG TAB PO SCH (08:55)
[2018-07-18] MEDS ORDERED: ERGOCALCIFEROL 50,000 UNIT CAP PO SCH (09:00)
--- NOTE | 2018-07-18 10:42 | PN ---
Date/Time of Note Date/Time of Note DATE: 07/18/18 TIME: 10:41 Assessment/Plan VTE Prophylaxis Risk score (from Ns)>0 risk: 6 SCD applied (from Ns): No SCD contraindicated: low risk/ambulating Pharmacological prophylaxis: apixaban Lines/Catheters IV [facility] Type (from [facility]): PICC Line Central line still needed: Yes Urinary Cath still in place: No Assessment/Plan Hospital Course 1. Chronic obstructive pulmonary disease exacerbation, underlying pneumonia, underlying congestive heart failure. ABG is hypercapnic 2. Uncontrolled diabetes. 3. Hypertension. 4. Hyperlipidemia. 5. History of atrial fibrillation. 6. Chronic hypercarbic respiratory failure. 7. History of congestive heart failure with ejection fraction of 25% to 30%. 8. Morbid obesity. 9. Abdominal wall hernia. 10. History of metabolic alkalosis. 11. Sleep apnea 12. constipation 13. Vit d deficiency Assessment/Plan - tele. -vit D supplement weekly -BIPAP at the night time - continue the patient on prednisone nebs around the clock, -c/w p.o. Lasix. -pt is not compliant with diet -hypoglycemic control -DVT prophylaxis eliquiz -GI prophylaxis Protonix -constipation regime Result Diagram: 07/18/18 0452 07/18/18 0452 Results 24hrs Laboratory Tests Test 07/17/18 11:39 07/17/18 17:20 07/17/18 20:08 07/18/18 01:55 Bedside Glucose 140 175 240 H 174 Test 07/18/18 04:52 07/18/18 07:45 White Blood Count 9.7 Red Blood Count 4.24 Hemoglobin 12.3 Hematocrit 41.4 Mean Corpuscular 97.6 Volume Mean Corpuscular 29.0 Hemoglobin Mean Corpuscular 29.7 L Hemoglobin Concent Red Cell 14.1 Distribution Width Platelet Count 223 Mean Platelet Volume 11.5 H Immature 0.800 H Granulocytes % Neutrophils % 65.7 Lymphocytes % 27.5 Monocytes % 5.6 Eosinophils % 0.2 Basophils % 0.2 Nucleated Red Blood 0.0 Cells % Immature 0.080 H Granulocytes # Neutrophils # 6.3 Lymphocytes # 2.7 Monocytes # 0.5 Eosinophils # 0.0 Basophils # 0.0 Nucleated Red Blood 0.0 Cells # Sodium Level 138 Potassium Level 4.4 Chloride Level 91 L Carbon Dioxide Level 42 *H Anion Gap 5 Blood Urea Nitrogen 24 H Creatinine 0.50 Est Glomerular > 60 Filtrat Rate mL/min Glucose Level 92 # Calcium Level 8.5 Phosphorus Level 4.2 Vitamin D < 12.8 L 1,25-Dihydroxy Bedside Glucose 105 Subjective 24 Hr Interval Summary Musculoskeletal: back pain (09/28) Exam/Review of Systems Exam Vitals Vital Signs Date Temp Pulse Resp B/P (MAP) Pulse Ox O2 O2 Flow FiO2 Time Delivery Rate 07/18/18 Nasal 2.0 09:59 Cannula 07/18/18 82 08:19 07/18/18 98.0 18 112/72 98 07:41 (85) 07/17/18 21 20:48 Intake and Output 07/17/18 07/17/18 07/18/18 1515:00 23:00 07:00 IntakeIntake Total 50 ml 750 ml 400 ml OutputOutput Total 240 ml BalanceBalance -190 ml 750 ml 400 ml Constitutional: alert, oriented Head: normocephalic Neck: supple Respiratory: diminished breath sounds, wheezing (bilaterally) Cardiovascular: regular rate and rhythm (ST) Gastrointestinal: soft Results Results 24hrs Laboratory Tests Test 07/17/18 11:39 07/17/18 17:20 07/17/18 20:08 07/18/18 01:55 Bedside Glucose 140 175 240 H 174 Test 07/18/18 04:52 07/18/18 07:45 White Blood Count 9.7 Red Blood Count 4.24 Hemoglobin 12.3 Hematocrit 41.4 Mean Corpuscular 97.6 Volume Mean Corpuscular 29.0 Hemoglobin Mean Corpuscular 29.7 L Hemoglobin Concent Red Cell 14.1 Distribution Width Platelet Count 223 Mean Platelet Volume 11.5 H Immature 0.800 H Granulocytes % Neutrophils % 65.7 Lymphocytes % 27.5 Monocytes % 5.6 Eosinophils % 0.2 Basophils % 0.2 Nucleated Red Blood 0.0 Cells % Immature 0.080 H Granulocytes # Neutrophils # 6.3 Lymphocytes # 2.7 Monocytes # 0.5 Eosinophils # 0.0 Basophils # 0.0 Nucleated Red Blood 0.0 Cells # Sodium Level 138 Potassium Level 4.4 Chloride Level 91 L Carbon Dioxide Level 42 *H Anion Gap 5 Blood Urea Nitrogen 24 H Creatinine 0.50 Est Glomerular > 60 Filtrat Rate mL/min Glucose Level 92 # Calcium Level 8.5 Phosphorus Level 4.2 Vitamin D < 12.8 L 1,25-Dihydroxy Bedside Glucose 105 Medications Medication Current Medications Insulin Glargine (Lantus) 20 units DAILY@0800 SC Last administered on 07/18/18 07:57; Admin Dose 20 UNITS; Start 07/16/18 at 08:00 Aspirin (Aspirin) 81 mg DAILY PO Last administered on 07/18/18 08:54; Admin Dose 81 MG; Start 07/16/18 at 09:00 Apixaban (Eliquis) 5 mg BID PO Last administered on 07/18/18 08:55; Admin Dose 5 MG; Start 07/16/18 at 09:00 Bisacodyl (Dulcolax) 5 mg DAILY PRN PO CONSTIPATION Last administered on 07/17/18 04:20; Admin Dose 5 MG; Start 07/16/18 at 03:00 Digoxin (Digoxin) 0.125 mg DAILY@13 PO Last administered on 07/17/18 13:12; A dmin Dose 0.125 MG; Start 07/16/18 at 13:00 Atorvastatin Calcium (Lipitor) 10 mg QHS PO Last administered on 07/17/18 20:14; Admin Dose 10 MG; Start 07/16/18 at 21:00 Furosemide (Lasix) 40 mg BID DIURETICS PO Last administered on 07/18/18 05:13; Admin Dose 40 MG; Start 07/16/18 at 06:00 Guaifenesin/ Dextromethorphan (Robitussin Dm Liquid Cup) 5 ml Q6H RESP THERAPY PRN PO COUGH Last administered on 07/17/18 20:11; Admin Dose 5 ML; Start 07/16/18 at 03:00 Acetaminophen/ Hydrocodone Bitart ([place] (10/325)) 1 tab Q6H PRN PO PAIN Last administered on 07/17/18 20:18; Admin Dose 1 TAB; Start 07/16/18 at 03:00 Ibuprofen (Motrin) 600 mg Q6 PO Last administered on 07/18/18 05:13; Admin Dose 600 MG; Start 07/16/18 at 06:00 Albuterol/ Ipratropium (Duoneb) 3 ml Q4H RESP THERAPY PRN NEB WHEEZING AND SOB; Start 07/16/18 at 03:00 Lisinopril (Zestril) 5 mg DAILY PO Last administered on 07/18/18 08:55; Admin Dose 5 MG; Start 07/16/18 at 09:00 Lorazepam (Ativan) 0.5 mg HS PRN PO ANXIETY Last administered on 07/17/18 20:13; Admin Dose 0.5 MG; Start 07/16/18 at 03:00 Metformin HCl (Glucophage) 1,000 mg WITH BREAKFAST DINNE PO Last administered on 07/18/18 07:46; Admin Dose 1,000 MG; Start 07/16/18 at 08:00 Metoprolol Succinate (Toprol Xl) 25 mg BID PO Last administered on 07/18/18 08:55; Admin Dose 25 MG; Start 07/16/18 at 09:00 Ondansetron HCl (Zofran Odt) 4 mg Q6H PRN ODT NAUSEA AND/OR VOMITING; Start 07/16/18 at 03:00 Pantoprazole (Protonix Tab) 40 mg DAILY@0600 PO Last administered on 07/18/18 05:12; Admin Dose 40 MG; Start 07/16/18 at 06:00 Prednisone (Prednisone) 20 mg DAILY PO Last administered on 07/18/18 08:55; Admin Dose 20 MG; Start 07/16/18 at 09:00 Quetiapine Fumarate (Seroquel) 100 mg DAILY PO Last administered on 07/18/18 08:55; Admin Dose 100 MG; Start 07/16/18 at 09:00 Docusate Sodium (Colace) 100 mg Q12H PO Last administered on 07/18/18 08:54; Admin Dose 100 MG; Start 07/16/18 at 09:00 Insulin Aspart (Novolog Insulin Pen) NOVOLOG *MILD* ALGORITHM WITH MEALS BEDTIME SC Last administered on 07/17/18 20:17; Admin Dose 2 UNIT; Start 07/16 at 08:00 Miscellaneous Information 1 ea NOTE XX ; Start 07/16/18 at 03:30 Glucose (Glutose) 15 gm Q15M PRN PO DECREASED GLUCOSE; Start 07/16/18 at 03:30 Glucose (Glutose) 22.5 gm Q15M PRN PO DECREASED GLUCOSE; Start 07/16/18 at 03:30 Dextrose (D50w Syringe) 25 ml Q15M PRN IV DECREASED GLUCOSE; Start 07/16/18 at 03:30 Dextrose (D50w Syringe) 50 ml Q15M PRN IV DECREASED GLUCOSE; Start 07/16/18 at 03:30 Glucagon (Glucagen) 1 mg Q15M PRN IM DECREASED GLUCOSE; Start 07/16/18 at 03:30 Glucose (Glutose) 15 gm Q15M PRN BUCCAL DECREASED GLUCOSE; Start 07/16/18 at 03:30 Diagnostic Test (Pha) (Accu-Chek) 1 ea 02 XX Last administered on 07/18/18at 02:02; Admin Dose 1 EA; Start 07/17/18 at 02:00 Albuterol/ Ipratropium (Duoneb) 3 ml Q4H RESP THERAPY HHN Last administered on 07/18/18at 04:43; Admin Dose 3 ML; Start 07/16/18 at 13:00 Insulin Aspart (Novolog Insulin Pen) 7 unit WITH MEALS SC Last administered on 07/18/18at 07:58; Admin Dose 7 UNIT; Start 07/16/18 at 12:00 Ceftriaxone Sodium 50 ml @ 100 mls/hr Q24H IVPB Last administered on 07/17/18at 13:12; Admin Dose 100 MLS/HR; Start 07/16/18 at 12:00 Tramadol HCl (Ultram) 50 mg Q6H PRN PO MODERATE PAIN LEVEL 4-6; Start 07/16/18 at 19:00 Polyethylene Glycol (Miralax) 17 gm DAILY PRN PO CONSTIPATION; Start 07/17/18 at 11:30 Lactulose (Enulose) 20 gm Q8 PO Last administered on 07/17/18at 13:12; Admin Dose 20 GM; Start 07/17/18 at 14:00; Stop 07/18/18 at 14:00 Alteplase, Recombinant (Cathflo (Activase)) 4 mg MAY REPEAT X1 PRN CATHETER IF CATHETER REMAINS OCCULUDED; Start 07/17/18 at 19:30 MELANIA LAMBERT Jul 18, 2018 10:42
[2018-07-18] MEDS: CEFTRIAXONE 1 GM/50 ML (PMX) 50 ML IVPB SCH (12:08)
[2018-07-18] MEDS: DIGOXIN 0.125 MG TAB PO SCH (12:08)
[2018-07-18] MEDS ORDERED: HYDROmorphONE 0.5 MG/0.5 ML SYG IV PRN (13:00)
[2018-07-18] MEDS: GUAIFENESIN/DM 5ML CUP PO PRN (17:20)
[2018-07-18] MEDS: HYDROCODONE/APAP (10/325) TAB PO PRN (19:41)
[2018-07-18] MEDS: ATORVASTATIN 10 MG TAB PO SCH (20:12)
[2018-07-18] MEDS: LORAZEPAM 0.5 MG TAB PO PRN (20:12)
[2018-07-19] VITALS (8 sets, daily range): BP systolic 98–128; BP diastolic 65–79; PULSE 68–94; RESP 19–21
[2018-07-19] MEDS: IBUPROFEN 600 MG TAB PO SCH ×3 (00:18→11:34)
[2018-07-19] MEDS: ALBUTEROL/IPRATROPIUM (NEB) 3 ML AMP HHN SCH ×5 (02:08→17:00)
[2018-07-19] MEDS: ACCUCHECK AT 2AM (Patients on SS coverage) XX SCH (02:13)
[2018-07-19] MEDS: FUROSEMIDE 40 MG TAB PO SCH (05:32)
[2018-07-19] MEDS: PANTOPRAZOLE (EC) 40 MG TAB PO SCH (05:37)
[2018-07-19] MEDS: INSULIN ASPART [NOVOLOG] 3 ML PEN SC SCH ×4 (08:00→12:59)
[2018-07-19] MEDS: APIXABAN 5 MG TABLET PO SCH (08:05)
[2018-07-19] MEDS: predniSONE 20 MG TAB PO SCH (08:05)
[2018-07-19] MEDS: DOCUSATE SODIUM 100 MG CAP PO SCH (08:05)
[2018-07-19] MEDS: ASPIRIN 81 MG TAB PO SCH (08:05)
[2018-07-19] MEDS: QUETIAPINE 100 MG TAB PO SCH (08:05)
[2018-07-19] MEDS: METOPROLOL (XL) 25 MG TAB PO SCH (08:08)
[2018-07-19] MEDS: LISINOPRIL 5 MG TAB PO SCH (08:08)
[2018-07-19] MEDS: metFORMIN 500 MG TAB PO SCH (08:13)
[2018-07-19] MEDS: INSULIN GLARGINE [LANTus] (100 UNITS/ML) SYG SC SCH (08:18)
[2018-07-19] MEDS ORDERED: ERGOCALCIFEROL 50,000 UNIT CAP PO SCH (09:00)
[2018-07-19] MEDS: CEFTRIAXONE 1 GM/50 ML (PMX) 50 ML IVPB SCH (11:34)
[2018-07-19] MEDS: HYDROCODONE/APAP (10/325) TAB PO PRN (11:34)
[2018-07-19] MEDS: DIGOXIN 0.125 MG TAB PO SCH (12:53)
--- NOTE | 2018-07-19 15:42 | PDOCDIS ---
Discharge Instructions CONDITION [id number] Patient Condition: [id number] Stable ACTIVITY: [id number] Activity Restrictions: [id number] Slowly Increase Activity FOLLOW UP/APPOINTMENTS Follow-up Plan f/u own pcp1 wk MITA HENAO MD Jul 19, 2018 15:42
[2018-07-19] MEDS ORDERED: APIX5TAB PO (15:49)
[2018-07-19] MEDS ORDERED: ASPI-831 PO (15:49)
[2018-07-19] MEDS ORDERED: ACET250T22 PO (15:49)
[2018-07-19] MEDS ORDERED: PRED10TA PO (15:49)
[2018-07-19] MEDS ORDERED: DOCU-144 PO (15:49)
[2018-07-19] MEDS ORDERED: NOVO3I SC (15:49)
[2018-07-19] MEDS ORDERED: POLY17PO6 PO (15:49)
[2018-07-19] MEDS ORDERED: DIGO125T PO (15:49)
[2018-07-19] MEDS ORDERED: TRAM50TA2 PO (15:49)
[2018-07-19] MEDS ORDERED: ERGO500013 PO (15:49)
[2018-07-19] MEDS ORDERED: ACETAZOLAMIDE 250 MG TAB PO SCH (16:30)
--- NOTE | 2018-07-19 16:59 | QN ---
Documentation Comment [id number] MITA HENAO MD Jul 19, 2018 16:59
--- NOTE | 2018-07-19 18:21 | DS ---
DATE OF ADMISSION: 07/16/2018 DATE OF DISCHARGE: HOSPITAL COURSE: A 48-year-old female with history of COPD, diabetes, hypertension, obstructive slee p apnea on home oxygen, transferred from [facility] for COPD exacerbation, lung infiltrate and pulmonary edema. The patient required oxygen, bronchodilator and antibiotic, also pain medication, w as started on prednisone. Prior to that, Solu-Medrol and was given oxygen. The patient has uncontro lled diabetes mellitus due to noncompliance with diet, is getting better. The patient's prednisone d ose is being tapered and patient is feeling better, is going to be discharged home. DISCHARGE DIAGNOSES: 1. Chronic obstructive pulmonary disease. 2. Lung infiltrate. 3. Pulmonary edema. 4. Hypertension. 5. Dyslipidemia. 6. Obesity. 7. Chronic hypercarbic respiratory failure. 8. Abdominal wall hernia. 9. History of metabolic acidosis. 10. Anemia. DISCHARGE MEDICATIONS: To continue on: 1. Diamox. 2. Apixaban. 3. Aspirin. 4. Digoxin. 5. Docusate sodium. 6. Ergocalciferol. 7. Insulin. 8. MiraLax. 9. Prednisone. 10. Tramadol. FOLLOWUP: The patient is to follow with PCP. DIET: Weight losing diabetic diet. DISPOSITION: The patient is stable at the time of discharge. Dictated By: MITA MOLINA/DEENA Conf#: [id number] DID#: [id number]
== END 2018-07-19 18:15 | disposition home or self-care (01) | DRG 190 ==
LOC: 6WM 07-16 00:25
PROVIDERS: ADMIT Internal Medicine Nephrology; ATTEND Internal Medicine Nephrology
DX: J44.0 Chronic obstructive pulmonary disease with (acute) lower respiratory infection (principal); J18.9 Pneumonia, unspecified organism; Z68.43 Body mass index [BMI] 50.0-59.9, adult; J96.12 Chronic respiratory failure with hypercapnia; I50.20 Unspecified systolic (congestive) heart failure; J44.1 Chronic obstructive pulmonary disease with (acute) exacerbation; E11.65 Type 2 diabetes mellitus with hyperglycemia; E66.01 Morbid (severe) obesity due to excess calories; I11.0 Hypertensive heart disease with heart failure; E78.5 Hyperlipidemia, unspecified; I48.2 Chronic atrial fibrillation; K43.9 Ventral hernia without obstruction or gangrene
CPT/HCPCS: 36600; 71045; 80048; 82652; 82803; 82962; 84100; 85025; 87070; 94640; 94664; J0456; J0696; J1120; J1170; J1815; J2997; J7050; J7512

== ENCOUNTER 2018-09-20 03:23 | Inpatient (IN) | payer BC ==
[~2018-09-20] VITALS: Ht 154.9 cm; Wt 135.0 kg
[2018-09-20] VITALS (10 sets, daily range): BP systolic 123–134; BP diastolic 59–80; PULSE 79–95; RESP 18–20; Ht 154.9 cm; Wt 135.0 kg
[~2018-09-20 03:23] MED LIST changes: +ACET250T22 PO; -ASPI-817 PO; +ASPI-831 PO; +ERGO500013 PO; +GUAI120S25 PO; -GUAI120S26 PO; -HYDR-3980 PO; -INSU100I12 SQ; +NOVO3I SC; +POLY17PO6 PO; +PRED10TA PO; -PRED20TA PO; +TRAM50TA2 PO
[2018-09-20] MEDS ORDERED: ALBUTEROL 0.083% (NEB) 2.5 MG/3 ML AMP INH STA (03:26)
[2018-09-20] MEDS ORDERED: IPRATROPIUM (NEB) 0.5 MG/2.5 ML AMP INH STA (03:26)
[2018-09-20] MEDS ORDERED: ACETAMINOPHEN 500 MG TAB PO STA (03:36)
[2018-09-20] MEDS ORDERED: ONDANSETRON 4 MG INJ IV STA (03:36)
[2018-09-20] MEDS ORDERED: morphine 4 MG/ML VIAL IV ONE (04:22)
--- NOTE | 2018-09-20 04:22 | ERD ---
ER Documentation Chief Complaint Chief Complaint bib ra from home for cp x 1 week, given 162 asa, and 1 spray of nitro, HPI This is a 48-year-old female with a history of COPD, history of systolic heart failure who presents for evaluation of chest pain. She been having chest pain on and off for the last week, worse today. She denies fever, she states that she had a mechanical fall, and fell on her right knee, and has pain to this area. She did not have any abrasions or lacerations. She describes symptoms as exertional. ROS All systems reviewed and are negative except as per history of present illness. Medications Home Meds Active Scripts Prednisone* (Prednisone*) 10 Mg Tab, 10 MG PO DAILY for 7 Days, TAB Prov:MITA HENAO MD 07/19/18 Ergocalciferol (Vitamin D2) (VITAMIN D2) 50,000 Unit Capsule, 18054 UNIT PO Baez@09 for 28 Days, CAP Prov:MITA HENAO MD 07/19/18 Insulin Aspart* (Novolog Insulin Pen*) 100 Unit/Ml Soln, 7 UNIT SC WITH MEALS for 28 Days Prov:MITA HENAO MD 07/19/18 Polyethylene Glycol* (Miralax*) 17 Gm Powd.pack, 17 GM PO DAILY PRN for CONSTIPATION for 28 Days Prov:MITA HENAO MD 07/19/18 Docusate Sodium* (Colace*) 100 Mg Capsule, 100 MG PO Q12H for 14 Days, CAP Prov:MITA HENAO MD 07/19/18 Acetazolamide* (Acetazolamide*) 250 Mg Tablet, 250 MG PO DAILY for 10 Days, TAB Prov:MITA HENAO MD 07/19/18 Tramadol HCl (Tramadol HCl) 50 Mg Tablet, 50 MG PO Q6H PRN for MODERATE PAIN LEVEL 4-6 for 14 Days, TAB Prov:MITA HENAO MD 07/19/18 Aspirin (Aspirin) 81 Mg Chew, 81 MG PO DAILY for 28 Days, TAB Prov:MITA HENAO MD 07/19/18 Digoxin* (Digitek*) 125 Mcg Tablet, 0.125 MG PO DAILY@13 for 28 Days, TAB Prov:MITA HENAO MD 07/19/18 Apixaban* (Eliquis*) 5 Mg Tablet, 5 MG PO BID for 28 Days, TAB Prov:MITA HENAO MD 07/19/18 Ondansetron (Ondansetron Odt) 4 Mg Tab.rapdis, 4 MG PO Q6H PRN for NAUSEA AND/OR VOMITING, #10 TAB Prov:COLBY CHRIS DO 06/09/18 [id number] Hb* (Guaifenesin* DM Syrup) 120 Ml Syrup, 5 ML PO Q6H RESP THERAPY PRN for COUGH for 10 Days Prov:ALEKSANDRA SALCIDO MD 06/08/18 Ipratropium-Albuterol (Ipratropium-Albuterol) 0.5-3 Mg/3 Ml Ampul.neb, 3 ML INHALATION Q4H PRN for WHEEZING AND SOB for 10 Days, #3 VIAL Prov:ALEKSANDRA SALCIDO MD 06/08/18 Pantoprazole* (Protonix*) 40 Mg Tablet.dr, 40 MG PO DAILY for 30 Days, TAB Prov:ALEKSANDRA SALCIDO MD 04/22/18 Apixaban* (Eliquis*) 5 Mg Tablet, 5 MG PO BID for 30 Days, TAB Prov:ALEKSANDRA SALCIDO MD 04/22/18 Digoxin* (Digitek*) 125 Mcg Tablet, 0.125 MG PO DAILY@13 for 30 Days, TAB Prov:ALEKSANDRA SALCIDO MD 04/22/18 Furosemide* (Furosemide*) 40 Mg Tablet, 40 MG PO BID for 30 Days, TAB Prov:ALEKSANDRA SALCIDO MD 04/22/18 Lorazepam* (Ativan*) 0.5 Mg Tablet, 0.5 MG PO HS PRN for ANXIETY for 5 Days, #30 TAB Prov:ALEKSANDRA SALCIDO MD 04/22/18 Insulin Glargine,Hum.rec.anlog (Basaglar Kwikpen U-100) 100 Unit/1 Ml Insuln.pen, 30 UNIT SC QHS for 30 Days, EA Prov:ALEKSANDRA SALCIDO MD 04/22/18 Quetiapine Fumarate* (Seroquel*) 100 Mg Tablet, 100 MG PO DAILY, #30 TAB Prov:ALEKSANDRA SALCIDO MD 04/22/18 Metformin Hcl* (Metformin Hcl*) 1,000 Mg Tablet, 1000 MG PO WITH BREAKFAST DINNE for 30 Days, #60 TAB Prov:ALEKSANDRA SALCIDO MD 04/22/18 Docusate Sodium* (Colace*) 100 Mg Capsule, 100 MG PO Q12H for 30 Days, #60 CAP Prov:ALEKSANDRA SALCIDO MD 04/22/18 Atorvastatin Calcium (Atorvastatin Calcium) 10 Mg Tablet, 10 MG PO QHS for 30 Days, #30 TAB Prov:ALEKSANDRA SALCIDO MD 04/22/18 Ibuprofen* (Motrin*) 600 Mg Tab, 600 MG PO Q6, #30 TAB Prov:NAIN KINGSLEY PA-C 02/16/18 Reported Medications Metoprolol Succinate* (Toprol XL*) 25 Mg Tab.sr.24h, 25 MG PO BID, #30 TAB 06/02/18 Lisinopril* (Lisinopril*) 5 Mg Tablet, 5 MG PO DAILY, #30 TAB 06/02/18 Bisacodyl* (Bisacodyl*) 5 Mg Tablet.dr, 5 MG PO DAILY PRN for NEEDED, TAB 01/28/18 Allergies Allergies: Coded Allergies: morphine (Verified Allergy, Mild, 06/09/18) PMhx/Soc History of Surgery: No Anesthesia Reaction: No Hx Neurological Disorder: Yes Hx Respiratory Disorders: Yes Hx Cardiac Disorders: Yes (HEART ATTACK) Hx Psychiatric Problems: Yes Hx Miscellaneous Medical Probl: No Hx Alcohol Use: No Hx Substance Use: No Hx Tobacco Use: No Smoking Status: Never smoker Physical Exam Vitals Vital Signs Date Temp Pulse Resp B/P (MAP) Pulse Ox O2 O2 Flow FiO2 Time Delivery Rate 09/20/18 93 18 97 Nasal 1.0 03:38 Cannula 09/20/18 98.9 97 19 113/97 100 03:25 (102) 09/20/18 95 14 115/78 98 Nasal 2.0 03:25 (90) Cannula 09/20/18 Nasal 2 03:25 Cannula Physical Exam Const: Mild distress, appears older than stated age, obese Head: Atraumatic Eyes: Normal Conjunctiva ENT: Normal External Ears, Nose and Mouth. Neck: Full range of motion. No meningismus. Resp: Wheezing noted bilaterally, Cardio: Regular rate and rhythm, no murmurs Abd: Soft, non tender, non distended. Normal bowel sounds Skin: No petechiae or rashes Back: No midline or flank tenderness Ext: No cyanosis, or edema. There is tenderness along the inferior patella, there are no deformities noted, pulses intact distally, skin is intact, there is no tenderness over the hip or ankle Neur: Awake and alert Psych: Normal Mood and Affect Result Diagram: 09/20/18 0327 09/20/18 0327 Results 24 hrs Laboratory Tests Test 09/20/18 03:26 09/20/18 03:27 Blood Gas Specimen Source Blood venous Arterial Blood Date Drawn 09/20/2018 3:30:15 AM Arterial Blood Gas Puncture Site VENOUS LINE Justice Test N/A Venous Blood pH 7.326 Venous Blood pCO2 (Temp Corrected) 49.6 mmHG Venous Blood pO2 (Temp Corrected) 44.5 mmHG Venous Blood HCO3 25.3 mmol/L Venous Blood Oxygen Saturation 72.9 mmHG Venous Blood Base Excess -0.8 mmol/L Venous Blood Total Hemoglobin 8.4 g/dl Venous Blood Oxyhemoglobin 72.5 % Venous Blood Methemoglobin 0.6 % Carboxyhemoglobin 0 % Blood Gas Temperature 37.0 C Blood Gas Actual Respiration Rate 18 Blood Gas Modality NASAL CANNULA FiO2 24.0 % Blood Gas Notified Whom Fermin DRUMMOND ORDER PROCESSING MANAGER Blood Gas Notified Time 09/20/2018 3:35:35 AM White Blood Count 9.3 10^3/ul Red Blood Count 3.97 10^6/ul Hemoglobin 10.8 g/dl Hematocrit 37.2 % Mean Corpuscular Volume 93.7 fl Mean Corpuscular Hemoglobin 27.2 pg Mean Corpuscular Hemoglobin Concent 29.0 g/dl Red Cell Distribution Width 15.6 % Platelet Count 240 10^3/UL Mean Platelet Volume 11.5 fl Immature Granulocytes % 0.300 % Neutrophils % 64.0 % Lymphocytes % 24.7 % Monocytes % 9.4 % Eosinophils % 1.2 % Basophils % 0.4 % Nucleated Red Blood Cells % 0.0 /100WBC Immature Granulocytes # 0.030 10^3/ul Neutrophils # 5.9 10^3/ul Lymphocytes # 2.3 10^3/ul Monocytes # 0.9 10^3/ul Eosinophils # 0.1 10^3/ul Basophils # 0.0 10^3/ul Nucleated Red Blood Cells # 0.0 10^3/ul Prothrombin Time 13.7 Sec Prothrombin Time Ratio 1.1 INR International Normalized Ratio 1.04 Activated Partial Thromboplast Time 28.0 Sec Sodium Level 142 mmol/L Potassium Level 4.6 mmol/L Chloride Level 101 mmol/L Carbon Dioxide Level 37 mmol/L Anion Gap 4 Blood Urea Nitrogen 18 mg/dl Creatinine 0.93 mg/dl Est Glomerular Filtrat Rate mL/min > 60 mL/min Glucose Level 197 mg/dl Calcium Level 8.6 mg/dl Total Bilirubin 0.4 mg/dl Direct Bilirubin 0.00 mg/dl Indirect Bilirubin 0.4 mg/dl Aspartate Amino Transf (AST/SGOT) 20 IU/L Alanine Aminotransferase (ALT/SGPT) 12 IU/L Alkaline Phosphatase 78 IU/L Troponin I Pending B-Type Natriuretic Peptide Pending Total Protein 7.3 g/dl Albumin 3.4 g/dl Globulin 3.90 g/dl Albumin/Globulin Ratio 0.87 Current Medications Medications Dose Sig/Eugenio Start Time Status Last (Trade) Ordered Route PRN Stop Time Admin Dose Reason Admin Albuterol 5 mg ONCE STAT 09/20/18 DC 09/20/18 (Proventil INH 03:26 09/20/18 03:37 0.083% (Neb)) 03:27 Ipratropium 0.5 mg ONCE STAT 09/20/18 DC 09/20/18 [place] INH 03:26 09/20/18 03:37 (Atrovent 03:27 0.02% (Neb)) Ondansetron 4 mg ONCE STAT 09/20/18 DC 09/20/18 HCl (Zofran IV 03:36 09/20/18 03:54 Inj) 03:38 1,000 mg ONCE STAT 09/20/18 DC 09/20/18 Acetaminophen PO 03:36 09/20/18 03:53 (Tylenol 03:38 Tab) Procedures/MDM 48-year-old female presents for chest pain or shortness of breath. Suspect that her symptoms are most likely due to combination of CHF, and COPD. She is given nebulized treatments in the ED, she will require admission for chest pain, her EKG did not show signs of acute ischemia, she had no evidence of infection. Her x-ray does not show any acute fracture or dislocation. She had no neurovascular deficits. Accepting Care Team: Current data and ongoing care discussed. Primary: Juan Consulting: None Outstanding Data: none EKG: Rate/Rhythm: Normal Sinus Rhythm QRS, ST, T-waves: No changes consistent w/ acute ischemia Impression: No evidence of ischemia or arrhythmia ELLE ABAD MD Sep 20, 2018 04:22
[2018-09-20] MEDS ORDERED: METHYLPREDNISOLONE 125 MG INJ IV ONE (04:30)
[2018-09-20] MEDS ORDERED: GLUCOSE GEL 15 GRAM TUBE BUCCAL PRN (08:30)
[2018-09-20] MEDS ORDERED: ONDANSETRON (ODT) 4 MG TAB ODT PRN (08:30)
[2018-09-20] MEDS ORDERED: GUAIFENESIN/DM 5ML CUP PO PRN (08:30)
[2018-09-20] MEDS ORDERED: GLUCOSE GEL 15 GRAM TUBE PO PRN ×2 (08:30)
[2018-09-20] MEDS ORDERED: BISACODYL (EC) 5 MG TAB PO PRN (08:30)
[2018-09-20] MEDS ORDERED: DEXTROSE 50% 50 ML SYRINGE IV PRN ×2 (08:30)
[2018-09-20] MEDS ORDERED: IBUPROFEN 600 MG TAB PO SCH (08:30)
[2018-09-20] MEDS ORDERED: GLUCAGON 1 MG INJ IM PRN (08:30)
[2018-09-20] MEDS ORDERED: ALBUTEROL/IPRATROPIUM (NEB) 3 ML AMP INH PRN (09:00)
[2018-09-20] MEDS ORDERED: QUETIAPINE 100 MG TAB PO SCH (09:00)
--- NOTE | 2018-09-20 09:05 | HP ---
Date/Time of Note Date/Time of Note DATE: 09/20/18 TIME: 09:05 Assessment/Plan VTE Prophylaxis SCD applied (from Nsg): No SCD contraindicated: other Pharmacological prophylaxis: apixaban Lines/Catheters IV Catheter Type (from Nrsg): Saline Lock Assessment/Plan Hospital Course 1. Chest pain/pressure type, r/o coronary syndrome 2. S.p incomplete fall, pain in right knee. Difficulties walking. X ray showed: Mild degenerative changes of the right knee, more pronounced in the lateral compartment. 3. Hypertension. 4. Hyperlipidemia. 5. Normocytic hypochromic anemia 6. Chronic hypercarbic respiratory failure, on BIPAP at home. 7. Uncontrolled diabetes 8. Morbid obesity. 9. Abdominal wall hernia, s/p surgery. 10. History of metabolic alkalosis. 11. History of atrial fibrillation. 12. History of congestive heart failure with ejection fraction of 25% to 30%. Assessment/Plan -tele. -UA drugs of aBUSE -pain control -voltaren gel locally -c/w home meds -dr Hall, CARDIOLOGY CALLED - ABG reviewed, res. acidosis -chest x-ray showed: Moderate cardiomegaly with pulmonary vascular congestion.. -DVT proph. Eliquiz BID - GI proph. protonix Result Diagram: 09/20/18 0327 09/20/18 0327 Results 24hrs Laboratory Tests Test 09/20/18 03:26 09/20/18 03:27 09/20/18 08:45 Blood Gas Specimen Source Blood venous Arterial Blood Date Drawn 09/20/2018 3:30:15 AM Arterial Blood Gas VENOUS LINE Puncture Site Justice Test N/A Venous Blood pH 7.326 L Venous Blood pCO2 49.6 H (Temp Corrected) Venous Blood pO2 44.5 H (Temp Corrected) Venous Blood HCO3 25.3 Venous Blood Oxygen Saturation 72.9 Venous Blood Base Excess -0.8 Venous Blood Total Hemoglobin 8.4 Venous Blood Oxyhemoglobin 72.5 Venous Blood Methemoglobin 0.6 Carboxyhemoglobin 0 Blood Gas Temperature 37.0 Blood Gas Actual 18 Respiration Rate Blood Gas Modality NASAL CANNULA FiO2 24.0 Blood Gas Notified Whom Fermin DRUMMOND RCP Blood Gas Notified Time 09/20/2018 3:35:35 AM White Blood Count 9.3 Red Blood Count 3.97 L Hemoglobin 10.8 L Hematocrit 37.2 Mean Corpuscular Volume 93.7 Mean Corpuscular Hemoglobin 27.2 L Mean Corpuscular 29.0 L Hemoglobin Concent Red Cell Distribution Width 15.6 H Platelet Count 240 Mean Platelet Volume 11.5 H Immature Granulocytes % 0.300 Neutrophils % 64.0 Lymphocytes % 24.7 Monocytes % 9.4 Eosinophils % 1.2 Basophils % 0.4 Nucleated Red Blood Cells % 0.0 Immature Granulocytes # 0.030 Neutrophils # 5.9 Lymphocytes # 2.3 Monocytes # 0.9 Eosinophils # 0.1 Basophils # 0.0 Nucleated Red Blood Cells # 0.0 Prothrombin Time 13.7 Prothrombin Time Ratio 1.1 INR International 1.04 Normalized Ratio Activated Partial Thromboplast 28.0 Time Sodium Level 142 Potassium Level 4.6 Chloride Level 101 Carbon Dioxide Level 37 H Anion Gap 4 L Blood Urea Nitrogen 18 Creatinine 0.93 Est Glomerular Filtrat > 60 Rate mL/min Glucose Level 197 Calcium Level 8.6 Total Bilirubin 0.4 Direct Bilirubin 0.00 Indirect Bilirubin 0.4 Aspartate Amino 20 Transf (AST/SGOT) Alanine 12 L Aminotransferase (ALT/SGPT) Alkaline Phosphatase 78 Troponin I < 0.012 B-Type Natriuretic Peptide 1400 H Total Protein 7.3 Albumin 3.4 Globulin 3.90 H Albumin/Globulin Ratio 0.87 Bedside Glucose 232 H HPI/ROS Admit Date/Time Admit Date/Time Sep 20, 2018 at 04:29 Hx of Present Illness This is a 48-year-old female well known to our service with multiple admissions in the past secondary to congestive heart failure, COPD, diabetes, hypertension, morbid obesity, hyperlipidemia, systolic congestive heart failure, psychotic disorders, atrial fibrillation, abdominal pain secondary to abdominal wall hernia, presented to the emergency department secondary to chest pain on and off for the last week, pressure type and a mechanical incomplete fall. She fell on her right knee, unable to walk straigth and has pain to this area 4/10. PAST MEDICAL HISTORY: 1. Diabetes. 2. Hypertension. 3. Hyperlipidemia. 4. Hypercholesterolemia. 5. History of chronic atrial fibrillation. 6. Morbid obesity. 7. History of abdominal wall hernia. 8. History of congestive heart failure, systolic, with ejection fraction of 25% to 30%. FAMILY HISTORY: No history of cardiac in the family. ROS Respiratory: cough; No no complaints, No pain, No pleuritic pain, No shortness of breath, No sputum, No wheezing, No other Cardiovascular: no complaints, chest pain (pressure), edema, lightheadedness, orthopenea, palpitations, paroxysmal nocturnal dyspnea, other Musculoskeletal: bone/joint pain (right knee) PMH/Family/Social Past Medical History Medical History: congestive heart failure, hypertension Medications Current Medications Diagnostic Test (Pha) (Accu-Chek) 1 ea 02 XX ; Start 09/21/18 at 02:00 Insulin Glargine (Lantus) 30 units QHS SC ; Start 09/20/18 at 21:00 Insulin Aspart (Novolog Insulin Pen) NOVOLOG *MODERATE* ALGORITHM WITH MEALS BEDTIME SC ; Start 09/20/18 at 08:00 Aspirin (Aspirin) 81 mg DAILY PO ; Start 09/20/18 at 09:00 Atorvastatin Calcium (Lipitor) 10 mg QHS PO ; Start 09/20/18 at 21:00 Bisacodyl (Dulcolax) 5 mg DAILY PRN PO NEEDED; Start 09/20/18 at 08:30 Digoxin (Digoxin) 0.125 mg DAILY@13 PO ; Start 09/20/18 at 13:00 Docusate Sodium (Colace) 100 mg Q12 PO ; Start 09/20/18 at 09:00 Guaifenesin/ Dextromethorphan (Robitussin Dm Liquid Cup) 5 ml Q6H RESP THERAPY PRN PO COUGH; Start 09/20/18 at 08:30 Ibuprofen (Motrin) 600 mg Q6 PO ; Start 09/20/18 at 08:30 Albuterol/ Ipratropium (Duoneb) 3 ml Q4H RESP THERAPY PRN INH WHEEZING AND SOB; Start 09/20/18 at 09:00 Metformin HCl (Glucophage) 1,000 mg WITH BREAKFAST DINNE PO ; Start 09/20/18 at 08:30 Ondansetron HCl (Zofran Odt) 4 mg Q6H PRN ODT NAUSEA AND/OR VOMITING; Start 09/20/18 at 08:30 Pantoprazole (Protonix Tab) 40 mg DAILY@0600 PO ; Start 09/20/18 at 08:30 Quetiapine Fumarate (Seroquel) 100 mg DAILY PO ; Start 09/20/18 at 09:00 Diagnostic Test (Pha) (Accu-Chek) 1 ea AC MEALS AND BEDTIME XX ; Start 09/20/18 at 11:30 Miscellaneous Information 1 ea NOTE XX ; Start 09/20/18 at 08:30 Glucose (Glutose) 15 gm Q15M PRN PO DECREASED GLUCOSE; Start 09/20/18 at 08:30 Glucose (Glutose) 22.5 gm Q15M PRN PO DECREASED GLUCOSE; Start 09/20/18 at 08:30 Dextrose (D50w Syringe) 25 ml Q15M PRN IV DECREASED GLUCOSE; Start 09/20/18 at 08:30 Dextrose (D50w Syringe) 50 ml Q15M PRN IV DECREASED GLUCOSE; Start 09/20/18 at 08:30 Glucagon (Glucagen) 1 mg Q15M PRN IM DECREASED GLUCOSE; Start 09/20/18 at 08:30 Glucose (Glutose) 15 gm Q15M PRN BUCCAL DECREASED GLUCOSE; Start 09/20/18 at 08:30 Coded Allergies: morphine (Verified Allergy, Mild, 06/09/18) Past Surgical History Past Surgical Hx: other (hernia surgery) Family History Significant Family History: hypertension Social History Alcohol Use: none Smoking Status: Former smoker Drug Use: other (past) Exam/Review of Systems Vital Signs Vitals Vital Signs Date Temp Pulse Resp B/P (MAP) Pulse Ox O2 O2 Flow FiO2 Time Delivery Rate 09/20/18 95 08:04 09/20/18 98.2 18 123/59 98 07:50 (80) 09/20/18 Nasal 3.0 07:26 Cannula Exam Constitutional: alert, oriented Head: normocephalic Eyes: nl conjunctiva ENMT: nl external ears & nose Neck: supple Respiratory: clear to auscultation, normal air movement Cardiovascular: regular rate and rhythm Gastrointestinal: soft, surgical scars, other (hernia) Genitourinary - Female: CVA tenderness; No nl adnexae, No nl external genitalia, No CMT, No uterus, No other Musculoskeletal: range of motion (decreased ROM right knee) Extremities: edema; No normal pulses, No calf tenderness, No cyanosis, No clubbing, No pitting pedal edema, No palpable cord, No tenderness, No other MELANIA LAMBERT Sep 20, 2018 09:05
[2018-09-20] MEDS ORDERED: IBUPROFEN 600 MG TAB PO PRN (09:30)
[2018-09-20] MEDS ORDERED: FUROSEMIDE 40 MG INJ IV SCH (09:30)
[2018-09-20] MEDS ORDERED: LORAZEPAM 0.5 MG TAB PO PRN (10:00)
[2018-09-20] MEDS: DOCUSATE SODIUM 100 MG CAP PO SCH ×2 (10:04→22:00)
[2018-09-20] MEDS: metFORMIN 500 MG TAB PO SCH ×2 (10:05→18:12)
[2018-09-20] MEDS: ASPIRIN 81 MG TAB PO SCH (10:06)
[2018-09-20] MEDS: PANTOPRAZOLE (EC) 40 MG TAB PO SCH (10:06)
[2018-09-20] MEDS: INSULIN ASPART [NOVOLOG] 3 ML PEN SC SCH ×4 (10:25→22:46)
[2018-09-20] MEDS ORDERED: KETOROLAC 30 MG INJ IV SCH (11:00)
[2018-09-20] MEDS: ACCU-CHEK XX SCH ×3 (11:30→21:00)
--- NOTE | 2018-09-20 13:23 | CONS ---
Consultation Date/Type/Reason Admit Date/Time Sep 20, 2018 at 04:29 Type of Consult Cardiology Date/Time of Note DATE: 09/20/18 TIME: 13:21 Hx of Present Illness Pt well known to us, in CHF now - EF 25%, plan for diuresis. # [id number] Past Medical History Home Meds Active Scripts Prednisone* (Prednisone*) 10 Mg Tab, 10 MG PO DAILY for 7 Days, TAB Prov:MITA HENAO MD 07/19/18 Ergocalciferol (Vitamin D2) (VITAMIN D2) 50,000 Unit Capsule, 41300 UNIT PO Baez@09 for 28 Days, CAP Prov:MITA HENAO MD 07/19/18 Insulin Aspart* (Novolog Insulin Pen*) 100 Unit/Ml Soln, 7 UNIT SC WITH MEALS for 28 Days Prov:MITA HENAO MD 07/19/18 Polyethylene Glycol* (Miralax*) 17 Gm Powd.pack, 17 GM PO DAILY PRN for CON STIPATION for 28 Days Prov:MITA HENAO MD 07/19/18 Docusate Sodium* (Colace*) 100 Mg Capsule, 100 MG PO Q12H for 14 Days, CAP Prov:MITA HENAO MD 07/19/18 Acetazolamide* (Acetazolamide*) 250 Mg Tablet, 250 MG PO DAILY for 10 Days, TAB Prov:MITA HENAO MD 07/19/18 Tramadol HCl (Tramadol HCl) 50 Mg Tablet, 50 MG PO Q6H PRN for MODERATE PAIN LEVEL 4-6 for 14 Days, TAB Prov:MITA HENAO MD 07/19/18 Aspirin (Aspirin) 81 Mg Chew, 81 MG PO DAILY for 28 Days, TAB Prov:MITA HENAO MD 07/19/18 Digoxin* (Digitek*) 125 Mcg Tablet, 0.125 MG PO DAILY@13 for 28 Days, TAB Prov:MITA HENAO MD 07/19/18 Apixaban* (Eliquis*) 5 Mg Tablet, 5 MG PO BID for 28 Days, TAB Prov:MITA HENAO MD 07/19/18 Ondansetron (Ondansetron Odt) 4 Mg Tab.rapdis, 4 MG PO Q6H PRN for NAUSEA AND/OR VOMITING, #10 TAB Prov:COLBY CHRIS DO 06/09/18 Kpfjrwkjmnh-D-Dfmbfropak Hb* (Guaifenesin* DM Syrup) 120 Ml Syrup, 5 ML PO Q6H RESP THERAPY PRN for COUGH for 10 Days Prov:ALEKSANDRA SALCIDO MD 06/08/18 Ipratropium-Albuterol (Ipratropium-Albuterol) 0.5-3 Mg/3 Ml Ampul.neb, 3 ML INHALATION Q4H PRN for WHEEZING AND SOB for 10 Days, #3 VIAL Prov:ALEKSANDRA SALCIDO MD 06/08/18 Pantoprazole* (Protonix*) 40 Mg Tablet.dr, 40 MG PO DAILY for 30 Days, TAB Prov:ALEKSANDRA SALCIDO MD 04/22/18 Apixaban* (Eliquis*) 5 Mg Tablet, 5 MG PO BID for 30 Days, TAB Prov:ALEKSANDRA SALCIDO MD 04/22/18 Digoxin* (Digitek*) 125 Mcg Tablet, 0.125 MG PO DAILY@13 for 30 Days, TAB Prov:ALEKSANDRA SALCIDO MD 04/22/18 Furosemide* (Furosemide*) 40 Mg Tablet, 40 MG PO BID for 30 Days, TAB Prov:ALEKSANDRA SALCIDO MD 04/22/18 Lorazepam* (Ativan*) 0.5 Mg Tablet, 0.5 MG PO HS PRN for ANXIETY for 5 Days, #30 TAB Prov:ALEKSANDRA SALCIDO MD 04/22/18 Insulin Glargine,Hum.rec.anlog (Basaglar Kwikpen U-100) 100 Unit/1 Ml Insuln.pen, 30 UNIT SC QHS for 30 Days, EA Prov:ALEKSANDRA SALCIDO MD 04/22/18 Quetiapine Fumarate* (Seroquel*) 100 Mg Tablet, 100 MG PO DAILY, #30 TAB Prov:ALEKSANDRA SALCIDO MD 04/22/18 Metformin Hcl* (Metformin Hcl*) 1,000 Mg Tablet, 1000 MG PO WITH BREAKFAST DINNE for 30 Days, #60 TAB Prov:ALEKSANDRA SALCIDO MD 04/22/18 Docusate Sodium* (Colace*) 100 Mg Capsule, 100 MG PO Q12H for 30 Days, #60 CAP Prov:ALEKSANDRA SALCIDO MD 04/22/18 Atorvastatin Calcium (Atorvastatin Calcium) 10 Mg Tablet, 10 MG PO QHS for 30 Days, #30 TAB Prov:ALEKSANDRA SALCIDO MD 04/22/18 Ibuprofen* (Motrin*) 600 Mg Tab, 600 MG PO Q6, #30 TAB Prov:NAIN KINGSLEY PA-C 02/16/18 Reported Medications Metoprolol Succinate* (Toprol XL*) 25 Mg Tab.sr.24h, 25 MG PO BID, #30 TAB 06/02/18 Lisinopril* (Lisinopril*) 5 Mg Tablet, 5 MG PO DAILY, #30 TAB 06/02/18 Bisacodyl* (Bisacodyl*) 5 Mg Tablet.dr, 5 MG PO DAILY PRN for NEEDED, TAB 01/28/18 Medications Current Medications Diagnostic Test (Pha) (Accu-Chek) XX ; Start 09/21/18 at 02:00 Insulin Glargine (Lantus) 30 units QHS SC ; Start 09/20/18 at 21:00 Insulin Aspart (Novolog Insulin Pen) NOVOLOG *MODERATE* ALGORITHM WITH MEALS BEDTIME SC Last administered on 09/20/18at 10:25; Admin Dose 6 UNIT; Start 09/20/18 at 08:00 Aspirin (Aspirin) 81 mg DAILY PO Last administered on 09/20/18at 10:06; Admin Dose 81 MG; Start 09/20/18 at 09:00 Atorvastatin Calcium (Lipitor) 10 mg QHS PO ; Start 09/20/18 at 21:00 Bisacodyl (Dulcolax) 5 mg DAILY PRN PO NEEDED; Start 09/20/18 at 08:30 Digoxin (Digoxin) 0.125 mg DAILY@13 PO ; Start 09/20/18 at 13:00 Docusate Sodium (Colace) 100 mg Q12 PO Last administered on 09/20/18at 10:04; Admin Dose 100 MG; Start 09/20/18 at 09:00 Guaifenesin/ Dextromethorphan (Robitussin Dm Liquid Cup) 5 ml Q6H RESP THERAPY PRN PO COUGH; Start 09/20/18 at 08:30 Metformin HCl (Glucophage) 1,000 mg WITH BREAKFAST DINNE PO Last administered on 09/20/18at 10:05; Admin Dose 1,000 MG; Start 09/20/18 at 08:30 Ondansetron HCl (Zofran Odt) 4 mg Q6H PRN ODT NAUSEA AND/OR VOMITING; Start 09/20/18 at 08:30 Pantoprazole (Protonix Tab) 40 mg DAILY@0600 PO Last administered on 09/20/18at 10:06; Admin Dose 40 MG; Start 09/20/18 at 08:30 Diagnostic Test (Pha) (Accu-Chek) 1 ea AC MEALS AND BEDTIME XX ; Start 09/20/18 at 11:30 Miscellaneous Information 1 ea NOTE XX ; Start 09/20/18 at 08:30 Glucose (Glutose) 15 gm Q15M PRN PO DECREASED GLUCOSE; Start 09/20/18 at 08:30 Glucose (Glutose) 22.5 gm Q15M PRN PO DECREASED GLUCOSE; Start 09/20/18 at 08:30 Dextrose (D50w Syringe) 25 ml Q15M PRN IV DECREASED GLUCOSE; Start 09/20/18 at 08:30 Dextrose (D50w Syringe) 50 ml Q15M PRN IV DECREASED GLUCOSE; Start 09/20/18 at 08:30 Glucagon (Glucagen) 1 mg Q15M PRN IM DECREASED GLUCOSE; Start 09/20/18 at 08:30 Glucose (Glutose) 15 gm Q15M PRN BUCCAL DECREASED GLUCOSE; Start 09/20/18 at 08:30 Ibuprofen (Motrin) 600 mg BID PRN PO PAIN; Start 09/20/18 at 09:30 Furosemide (Lasix) 40 mg DAILY IV Last administered on 09/20/18at 11:06; Admin Dose 40 MG; Start 09/20/18 at 09:30 Albuterol/ Ipratropium (Duoneb) 3 ml Q6H RESP THERAPY PRN INH WHEEZING AND SOB; Start 09/20/18 at 10:00 Diclofenac Sodium (Voltaren 1% Gel) 2 gm QID TP ; Start 09/20/18 at 13:00 Lorazepam (Ativan) 0.5 mg DAILY PRN PO ANXIETY; Start 09/20/18 at 10:30 Quetiapine Fumarate (Seroquel) 100 mg HS PO ; Start 09/20/18 at 21:00 Ketorolac Tromethamine (Toradol) 30 mg ONCE IV ; Start 09/20/18 at 11:00; Stop 09/21/18 at 10:59 Apixaban (Eliquis) 5 mg BID PO ; Start 09/20/18 at 10:30 Tramadol HCl (Ultram) 50 mg Q6H PRN PO MODERATE PAIN LEVEL 4-6; Start 09/20/18 at 10:30 Allergies: Coded Allergies: morphine (Verified Allergy, Mild, 06/09/18) Past Surgical History Past Surgical Hx: other (hernia surgery) Social History Alcohol Use: none Smoking Status: Current every day smoker Drug Use: other (past) Exam/Review of Systems Vital Signs Vitals Vital Signs Date Temp Pulse Resp B/P (MAP) Pulse Ox O2 O2 Flow FiO2 Time Delivery Rate 09/20/18 95 12:03 09/20/18 98.0 18 127/67 98 11:57 (87) 09/20/18 Nasal 2.0 08:00 Cannula Labs Result Diagram: 09/20/18 0327 09/20/18 0327 Results 24hrs Laboratory Tests Test 09/20/18 03:26 09/20/18 03:27 09/20/18 08:45 09/20/18 12:28 Blood Gas Specimen Blood venous Source Arterial Blood 09/20/2018 3:30:15 Date Drawn AM Arterial Blood Gas VENOUS LINE Puncture Site Justice Test N/A Venous Blood pH 7.326 L Venous Blood pCO2 49.6 H (Temp Corrected) Venous Blood pO2 44.5 H (Temp Corrected) Venous Blood HCO3 25.3 Venous Blood 72.9 Oxygen Saturation Venous Blood Base -0.8 Excess Venous Blood Total 8.4 Hemoglobin Venous Blood 72.5 Oxyhemoglobin Venous Blood 0.6 Methemoglobin Carboxyhemoglobin 0 Blood Gas 37.0 Temperature Blood Gas Actual 18 Respiration Rate Blood Gas Modality NASAL CANNULA FiO2 24.0 Blood Gas Notified Fermin DRUMMOND RCP Whom Blood Gas Notified 09/20/2018 3:35:35 Time AM White Blood Count 9.3 Red Blood Count 3.97 L Hemoglobin 10.8 L Hematocrit 37.2 Mean Corpuscular 93.7 Volume Mean Corpuscular 27.2 L Hemoglobin Mean Corpuscular 29.0 L Hemoglobin Concent Red Cell 15.6 H Distribution Width Platelet Count 240 Mean Platelet 11.5 H Volume Immature 0.300 Granulocytes % Neutrophils % 64.0 Lymphocytes % 24.7 Monocytes % 9.4 Eosinophils % 1.2 Basophils % 0.4 Nucleated Red 0.0 Blood Cells % Immature 0.030 Granulocytes # Neutrophils # 5.9 Lymphocytes # 2.3 Monocytes # 0.9 Eosinophils # 0.1 Basophils # 0.0 Nucleated Red 0.0 Blood Cells # Prothrombin Time 13.7 Prothrombin Time 1.1 Ratio INR International 1.04 Normalized Ratio Activated 28.[address] Time Sodium Level 142 Potassium Level 4.6 Chloride Level 101 Carbon Dioxide 37 H Level Anion Gap 4 L Blood Urea 18 Nitrogen Creatinine 0.93 Est Glomerular > 60 Filtrat Rate mL/min Glucose Level 197 Calcium Level 8.6 Total Bilirubin 0.4 Direct Bilirubin 0.00 Indirect Bilirubin 0.4 Aspartate Amino 20 Transf (AST/SGOT) Alanine 12 L Aminotransferase ( ALT/SGPT) Alkaline 78 Phosphatase Troponin I < 0.012 B-Type Natriuretic 1400 H Peptide Total Protein 7.3 Albumin 3.4 Globulin 3.90 H Albumin/Globulin 0.87 Ratio Bedside Glucose 232 H 353 H Medications Medications Current Medications Diagnostic Test (Pha) (Accu-Chek) 1 ea 02 XX ; Start 09/21/18 at 02:00 Insulin Glargine (Lantus) 30 units QHS SC ; Start 09/20/18 at 21:00 Insulin Aspart (Novolog Insulin Pen) NOVOLOG *MODERATE* ALGORITHM WITH MEALS BEDTIME SC Last administered on 09/20/18at 10:25; Admin Dose 6 UNIT; Start 09/20/18 at 08:00 Aspirin (Aspirin) 81 mg DAILY PO Last administered on 09/20/18at 10:06; Admin Dose 81 MG; Start 09/20/18 at 09:00 Atorvastatin Calcium (Lipitor) 10 mg QHS PO ; Start 09/20/18 at 21:00 Bisacodyl (Dulcolax) 5 mg DAILY PRN PO NEEDED; Start 09/20/18 at 08:30 Digoxin (Digoxin) 0.125 mg DAILY@13 PO ; Start 09/20/18 at 13:00 Docusate Sodium (Colace) 100 mg Q12 PO Last administered on 09/20/18at 10:04; Admin Dose 100 MG; Start 09/20/18 at 09:00 Guaifenesin/ Dextromethorphan (Robitussin Dm Liquid Cup) 5 ml Q6H RESP THERAPY PRN PO COUGH; Start 09/20/18 at 08:30 Metformin HCl (Glucophage) 1,000 mg WITH BREAKFAST DINNE PO Last administered on 09/20/18at 10:05; Admin Dose 1,000 MG; Start 09/20/18 at 08:30 Ondansetron HCl (Zofran Odt) 4 mg Q6H PRN ODT NAUSEA AND/OR VOMITING; Start 09/20/18 at 08:30 Pantoprazole (Protonix Tab) 40 mg DAILY@0600 PO Last administered on 09/20/18at 10:06; Admin Dose 40 MG; Start 09/20/18 at 08:30 Diagnostic Test (Pha) (Accu-Chek) 1 ea AC MEALS AND BEDTIME XX ; Start 09/20/18 at 11:30 Miscellaneous Information 1 ea NOTE XX ; Start 09/20/18 at 08:30 Glucose (Glutose) 15 gm Q15M PRN PO DECREASED GLUCOSE; Start 09/20/18 at 08:30 Glucose (Glutose) 22.5 gm Q15M PRN PO DECREASED GLUCOSE; Start 09/20/18 at 08:30 Dextrose (D50w Syringe) 25 ml Q15M PRN IV DECREASED GLUCOSE; Start 09/20/18 at 08:30 Dextrose (D50w Syringe) 50 ml Q15M PRN IV DECREASED GLUCOSE; Start 09/20/18 at 08:30 Glucagon (Glucagen) 1 mg Q15M PRN IM DECREASED GLUCOSE; Start 09/20/18 at 08:30 Glucose (Glutose) 15 gm Q15M PRN BUCCAL DECREASED GLUCOSE; Start 09/20/18 at 08:30 Ibuprofen (Motrin) 600 mg BID PRN PO PAIN; Start 09/20/18 at 09:30 Furosemide (Lasix) 40 mg DAILY IV Last administered on 09/20/18at 11:06; Admin Dose 40 MG; Start 09/20/18 at 09:30 Albuterol/ Ipratropium (Duoneb) 3 ml Q6H RESP THERAPY PRN INH WHEEZING AND SOB; Start 09/20/18 at 10:00 Diclofenac Sodium (Voltaren 1% Gel) 2 gm QID TP ; Start 09/20/18 at 13:00 Lorazepam (Ativan) 0.5 mg DAILY PRN PO ANXIETY; Start 09/20/18 at 10:30 Quetiapine Fumarate (Seroquel) 100 mg HS PO ; Start 09/20/18 at 21:00 Ketorolac Tromethamine (Toradol) 30 mg ONCE IV ; Start 09/20/18 at 11:00; Stop 09/21/18 at 10:59 Apixaban (Eliquis) 5 mg BID PO ; Start 09/20/18 at 10:30 Tramadol HCl (Ultram) 50 mg Q6H PRN PO MODERATE PAIN LEVEL 4-6; Start 09/20/18 at 10:30 JOHN BOWERS MD Sep 20, 2018 13:23
[2018-09-20] MEDS: LORAZEPAM 0.5 MG TAB PO PRN (14:03)
[2018-09-20] MEDS: DIGOXIN 0.125 MG TAB PO SCH (14:04)
[2018-09-20] MEDS: APIXABAN 5 MG TABLET PO SCH ×2 (14:04→22:00)
[2018-09-20] MEDS: ALBUTEROL/IPRATROPIUM (NEB) 3 ML AMP INH PRN (15:33)
--- NOTE | 2018-09-20 15:46 | CONS ---
DATE OF ADMISSION: 09/20/2018 DATE OF CONSULTATION: TYPE OF CONSULTATION: Cardiology. REFERRING PHYSICIAN: Hitesh Henao MD REASON FOR EVALUATION: CHF exacerbation. HISTORY OF PRESENT ILLNESS: This is a 48-year-old woman known to me from multiple prior admissions. She has a history of hypertension, dyslipidemia, history of morbid obesity, history of heart failure with last ejection fraction of 41%, history of COPD, history of suspected medical noncompliance or a t least nonadherence, history of paroxysmal atrial fibrillation. She comes to the hospital now after a fall. She said she fell and she hit her knee. She said that she has been retaining fluid for the last few days and this is why she is here. The patient is in some degree of fluid overload. She is being treated with IV Lasix now. She is on Eliquis for anticoagulation. As described prior, I thin k patient has to elicit a good degree of compliance and she ought to be in consideration for ICD at 3 to 6 months after diagnosis. PAST MEDICAL HISTORY: 1. Hypertension. 2. Dyslipidemia. 3. History of heart failure with preserved ejection fraction. 4. History of COPD. 5. History of paroxysmal atrial fibrillation. 6. 7. Diabetes. ALLERGIES: NO KNOWN DRUG ALLERGIES. SOCIAL HISTORY: The patient does not smoke, does not drink, does not use any drugs. FAMILY HISTORY: Negative for sudden cardiac or premature coronary artery disease. MEDICATIONS: Here include: 1. Insulin sliding scale. 2. Lipitor. 3. Klonopin. 4. Digoxin 0.15 mg daily. 5. Lorazepam. 6. Eliquis 5 mg p.o. b.i.d. 7. Tramadol. 8. Albuterol. 9. Atrovent. 10. Lasix 40 mg IV daily. 11. Aspirin 81 mg daily. 12. Docusate. 13. Bisacodyl. 14. Klonopin. 15. Sugar monitoring. REVIEW OF SYSTEMS: CONSTITUTIONAL: No fevers, no chills. Recent weight gain. HEENT: No changes in vision or hearing. CARDIAC: No chest pain reported. RESPIRATORY: Short of breath, acute on chronic. GASTROINTESTINAL: No nausea, vomiting. GENITOURINARY: No dysuria, hematuria. NEUROLOGIC: No focal neurologic deficits. Status post mechanical fall with injury. PHYSICAL EXAMINATION: VITAL SIGNS: Temperature 98.0, heart rate is 95, blood pressure 127/67. GENERAL: She is an obese woman in no acute distress, alert and oriented x3, aware of her condition. HEAD: Head is normocephalic, atraumatic. Eyes are anicteric. NECK: Supple. JVD is 6 to 7 cm. No lymphadenopathy, no thyromegaly. HEART: Regular, soft systolic murmur. PMI is minimally displaced. There is no S3. LUNGS: Coarse to base. ABDOMEN: Distended. Bowel sounds are present. There is no hepatosplenomegaly. GENITOURINARY: Intact. EXTREMITIES: Show no clubbing, cyanosis. A 1 to 2+ edema. LABORATORY DATA: White blood cell count is 9.3, hemoglobin is 10.8, platelets 240. INR is 1.0. Sod ium 142, potassium 4.6, BUN 19, creatinine 0.9. AST 12, ALT 12. Her troponin is 0.012. ASSESSMENT AND PLAN: 1. Congestive heart failure exacerbation. The patient is with congestive heart failure exacerbation , systolic, acute on chronic. Continue afterload reduction and diuresis. 2. Hypertension. Blood pressure is well controlled now. Continue to adjust medications as needed. 3. Paroxysmal atrial fibrillation. The patient is in sinus rhythm now. She is anticoagulated with Eliquis. Continue to monitor. 4. Secondary hypercoagulable state. Continue Eliquis as indicated. 5. Fall, appears to be mechanical by examination. Continue to adjust medicines as needed. I would like to thank Dr. Henao for referring this patient for my evaluation. Dictated By: JOHN BOWERS MD ML/NTS Conf#: [id number] DID#: [id number] CC: GAGAN GARCIA MD; HITESH HENAO MD;*EndCC*
[2018-09-20] MEDS: DICLOFENAC SODIUM 1% GEL 100 GM TUBE TP SCH ×3 (15:49→22:01)
[2018-09-20] MEDS: LISINOPRIL 5 MG TAB PO SCH (17:18)
[2018-09-20] MEDS: ATORVASTATIN 10 MG TAB PO SCH (22:00)
[2018-09-20] MEDS: QUETIAPINE 100 MG TAB PO SCH (22:00)
[2018-09-20] MEDS: METOPROLOL (XL) 25 MG TAB PO SCH (22:01)
[2018-09-20] MEDS: INSULIN GLARGINE [LANTus] (100 UNITS/ML) SYG SC SCH (22:45)
[2018-09-21] VITALS (11 sets, daily range): BP systolic 102–137; BP diastolic 63–76; PULSE 78–100; RESP 16–22
[2018-09-21] MEDS: ACCU-CHEK XX SCH ×5 (02:00→21:15)
[2018-09-21] MEDS: PANTOPRAZOLE (EC) 40 MG TAB PO SCH (05:56)
[2018-09-21] MEDS ORDERED: FUROSEMIDE 40 MG TAB PO SCH (09:00)
[2018-09-21] MEDS: DOCUSATE SODIUM 100 MG CAP PO SCH ×2 (09:00→20:25)
[2018-09-21] MEDS: INSULIN ASPART [NOVOLOG] 3 ML PEN SC SCH ×5 (09:11→21:00)
[2018-09-21] MEDS: METOPROLOL (XL) 25 MG TAB PO SCH ×2 (09:12→20:25)
[2018-09-21] MEDS: metFORMIN 500 MG TAB PO SCH (09:12)
[2018-09-21] MEDS: APIXABAN 5 MG TABLET PO SCH ×2 (09:12→20:25)
[2018-09-21] MEDS: ASPIRIN 81 MG TAB PO SCH (09:12)
[2018-09-21] MEDS: LISINOPRIL 5 MG TAB PO SCH (09:13)
[2018-09-21] MEDS: DICLOFENAC SODIUM 1% GEL 100 GM TUBE TP SCH ×4 (09:15→20:26)
--- NOTE | 2018-09-21 11:08 | CONS ---
Assessment/Plan Assessment/Plan Hospital Course (Demo Recall) IMP: 1.CHF-systolic acute on chronic 2.Cardiomyopathy-EF 25-30 by echo 04/07. Nonischemic by cath 3.HTN 4.HL 5.COPD 6. H/O PAF on eliquis 7.DM Recc: -Tele -serial ecg's -Continue eliquis -Continue lasix diuresis but would make BID and follow volume status clsoely -Contineu bronchodilators -Continue statin -Continue digoxin -Continue psych meds -Contineu psych meds -Follow BS closely Consultation Date/Type/Reason Admit Date/Time Sep 20, 2018 at 04:29 Initial Consult Date 09/20/18 Type of Consult Cardiology Reason for Consultation knowles Requesting Provider: ROMAINE URENA MD Date/Time of Note DATE: 09/21/18 TIME: 11:01 Exam/Review of Systems Vital Signs Vitals Vital Signs Date Temp Pulse Resp B/P (MAP) Pulse Ox O2 O2 Flow FiO2 Time Delivery Rate 09/21/18 81 08:00 09/21/18 98.0 18 137/70 98 07:36 (92) 09/21/18 2.0 02:21 09/20/18 Nasal 21:05 Cannula Intake and Output 09/20/18 09/20/18 09/21/18 1515:00 23:00 07:00 IntakeIntake Total 800 ml 500 ml OutputOutput Total 2700 ml 1000 ml BalanceBalance -1900 ml -500 ml Exam Exam Review of Systems: CONSTITUTIONAL: No fevers, chills. PULMONARY: No sob CARDIOVASCULAR: No chest pain/palpitations GASTROINTESTINAL: No nausea/vomiting. GENITOURINARY: No hematuria/dysuria. MUSCULOSKELETAL: No myagias/arthalgias. PSYCHIATRIC: The patient denies depression. NEUROLOGIC: No weakness Constitutional: alert, oriented Psych: no complaints Head: normocephalic ENMT: mucosa pink and moist Neck: supple, jvd (9 cm water) Respiratory: diminished breath sounds (at bases/B) Cardiovascular: regular rate and rhythm Gastrointestinal: soft, non-tender Musculoskeletal: muscle tone (normal) Extremities: pitting pedal edema (R>>L) Neurological: other (No focal deficits) Labs Result Diagram: 09/21/18 0525 09/21/18 0525 Results 24hrs Laboratory Tests Test 09/20/18 12:28 09/20/18 15:00 09/20/18 17:15 09/20/18 21:58 Bedside Glucose 353 H 298 H 267 H Urine Opiates Screen Positive Urine Barbiturates Negative Urine Amphetamines Negative Screen Urine Benzodiazepines Negative Screen Urine Cocaine Screen Positive Urine Cannabinoids Positive Test 09/21/18 03:18 09/21/18 05:25 09/21/18 09:00 Bedside Glucose 205 203 White Blood Count 14.8 #H Red Blood Count 3.81 L Hemoglobin 10.4 L Hematocrit 35.2 L Mean Corpuscular Volume 92.4 Mean Corpuscular 27.3 L Hemoglobin Mean Corpuscular 29.5 L Hemoglobin Concent Red Cell Distribution 15.5 H Width Platelet Count 232 Mean Platelet Volume 11.6 H Immature Granulocytes % 0.400 Neutrophils % 81.3 H Lymphocytes % 11.3 L Monocytes % 6.6 Eosinophils % 0.3 Basophils % 0.1 Nucleated Red Blood 0.0 Cells % Immature Granulocytes # 0.060 H Neutrophils # 12.0 H Lymphocytes # 1.7 Monocytes # 1.0 H Eosinophils # 0.0 Basophils # 0.0 Nucleated Red Blood 0.0 Cells # Sodium Level 138 Potassium Level 4.4 Chloride Level 96 L Carbon Dioxide Level 39 H Anion Gap 3 L Blood Urea Nitrogen 21 H Creatinine 0.67 Est Glomerular Filtrat > 60 Rate mL/min Glucose Level 206 Hemoglobin A1c 10.3 H Calcium Level 8.4 Medications Medications Current Medications Diagnostic Test (Pha) (Accu-Chek) 1 ea 02 XX Last administered on 09/21/18at 02:00; Admin Dose 1 EA; Start 09/21/18 at 02:00 Insulin Glargine (Lantus) 30 units QHS SC Last administered on 09/20/18at 22:45; Admin Dose 30 UNITS; Start 09/20/18 at 21:00 Insulin Aspart (Novolog Insulin Pen) NOVOLOG *MODERATE* ALGORITHM WITH MEALS BEDTIME SC Last administered on 09/21/18 09:11; Admin Dose 4 UNIT; Start 09/20/18 at 08:00 Aspirin (Aspirin) 81 mg DAILY PO Last administered on 09/21/18 09:12; Admin Dose 81 MG; Start 09/20/18 at 09:00 Atorvastatin Calcium (Lipitor) 10 mg QHS PO Last administered on 6/2/19at 22:00; Admin Dose 10 MG; Start 09/20/18 at 21:00 Bisacodyl (Dulcolax) 5 mg DAILY PRN PO NEEDED; Start 09/20/18 at 08:30 Digoxin (Digoxin) 0.125 mg DAILY@13 PO Last administered on 09/20/18at 14:04; Admin Dose 0.125 MG; Start 09/20/18 at 13:00 Docusate Sodium (Colace) 100 mg Q12 PO Last administered on 09/20/18at 22:00; Admin Dose 100 MG; Start 09/20/18 at 09:00 Guaifenesin/ Dextromethorphan (Robitussin Dm Liquid Cup) 5 ml Q6H RESP THERAPY PRN PO COUGH; Start 09/20/18 at 08:30 Metformin HCl (Glucophage) 1,000 mg WITH BREAKFAST DINNE PO Last administered on 09/21/18at 09:12; Admin Dose 1,000 MG; Start 09/20/18 at 08:30 Ondansetron HCl (Zofran Odt) 4 mg Q6H PRN ODT NAUSEA AND/OR VOMITING; Start 09/20/18 at 08:30 Pantoprazole (Protonix Tab) 40 mg DAILY@0600 PO Last administered on 09/20/18at 10:06; Admin Dose 40 MG; Start 09/20/18 at 08:30 Diagnostic Test (Pha) (Accu-Chek) 1 ea AC MEALS AND BEDTIME XX Last administered on 09/21/18at 09:00; Admin Dose 1 EA; Start 09/20/18 at 11:30 Miscellaneous Information 1 ea NOTE XX ; Start 09/20/18 at 08:30 Glucose (Glutose) 15 gm Q15M PRN PO DECREASED GLUCOSE; Start 09/20/18 at 08:30 Glucose (Glutose) 22.5 gm Q15M PRN PO DECREASED GLUCOSE; Start 09/20/18 at 08:30 Dextrose (D50w Syringe) 25 ml Q15M PRN IV DECREASED GLUCOSE; Start 09/20/18 at 08:30 Dextrose (D50w Syringe) 50 ml Q15M PRN IV DECREASED GLUCOSE; Start 09/20/18 at 08:30 Glucagon (Glucagen) 1 mg Q15M PRN IM DECREASED GLUCOSE; Start 09/20/18 at 08:30 Glucose (Glutose) 15 gm Q15M PRN BUCCAL DECREASED GLUCOSE; Start 09/20/18 at 08:30 Ibuprofen (Motrin) 600 mg BID PRN PO PAIN; Start 09/20/18 at 09:30 Albuterol/ Ipratropium (Duoneb) 3 ml Q6H RESP THERAPY PRN INH WHEEZING AND SOB Last administered on 09/20/18 15:33; Admin Dose 3 ML; Start 09/20/18 at 10:00 Diclofenac Sodium (Voltaren 1% Gel) 2 gm QID TP Last administered on 09/21/18 09:15; Admin Dose 2 GM; Start 09/20/18 at 13:00 Lorazepam (Ativan) 0.5 mg DAILY PRN PO ANXIETY Last administered on 09/20/18 14:03; Admin Dose 0.5 MG; Start 09/20/18 at 10:30 Quetiapine Fumarate (Seroquel) 100 mg HS PO Last administered on 09/20/18 22:00; Admin Dose 100 MG; Start 09/20/18 at 21:00 Apixaban (Eliquis) 5 mg BID PO Last administered on 09/21/18 09:12; Admin Dose 5 MG; Start 09/20/18 at 10:30 Tramadol HCl (Ultram) 50 mg Q6H PRN PO MODERATE PAIN LEVEL 4-6; Start 09/20/18 at 10:30 Lisinopril (Zestril) 5 mg DAILY PO Last administered on 09/21/18 09:13; Admin Dose 5 MG; Start 09/20/18 at 15:30 Metoprolol Succinate (Toprol Xl) 25 mg BID PO Last administered on 09/21/18 09:12; Admin Dose 25 MG; Start 09/20/18 at 21:00 Furosemide (Lasix) 40 mg DAILY PO Last administered on 09/21/18 09:13; Admin Dose 40 MG; Start 09/21/18 at 09:00 GAGAN GARCIA Sep 21, 2018 11:08
[2018-09-21] MEDS: DIGOXIN 0.125 MG TAB PO SCH (12:21)
--- NOTE | 2018-09-21 13:36 | PN ---
Date/Time of Note Date/Time of Note DATE: 09/21/18 TIME: 13:28 Assessment/Plan VTE Prophylaxis Risk score (from Ns)>0 risk: 3 SCD applied (from Ns): No SCD contraindicated: low risk/ambulating Pharmacological prophylaxis: NA/contraindicated Pharm contraindication: low risk/ambulating Lines/Catheters [facility] Peripheral IV Assessment/Plan Assessment/Plan Hospital Course #. Chest pain/pressure type, r/o coronary syndrome neg cath before #. S.p incomplete fall, pain in right knee. Difficulties walking. X ray showed: Mild degenerative changes of the right knee, more pronounced in the lateral compartment. # .CHF-systolic acute on chronic with weight gain, edema #Cardiomyopathy-EF 25-30 by echo 04/07. Nonischemic by cath # Hypertension. # Hyperlipidemia. #. Normocytic hypochromic anemia #. Chronic hypercarbic respiratory failure, on BIPAP at home. #. Uncontrolled diabetes # Morbid obesity. #. Abdominal wall hernia, s/p surgery. #. History of metabolic alkalosis. #. History of chronic atrial fibrillation. # Drug use +cocaine Assessment/Plan -increase lasix to 40 bid - fluid restriction - cw ASA/MTP/Lissopril/digoxin - iv toradol, avoid narcotics - cw lantus 30 and add mealtime insulin, take off metformin/ibruprofen due to risk of renal failure - PT eval - fu cardiac recs -chest x-ray showed: Moderate cardiomegaly with pulmonary vascular congestion.. -DVT proph. Eliquiz BID - GI proph. protonix Result Diagram: 09/21/18 0525 09/21/18 0525 Results 24hrs Laboratory Tests Test 09/20/18 15:00 09/20/18 17:15 09/20/18 21:58 09/21/18 03:18 Urine Opiates Screen Positive Urine Barbiturates Negative Urine Amphetamines Negative Screen Urine Benzodiazepines Negative Screen Urine Cocaine Screen Positive Urine Cannabinoids Positive Bedside Glucose 298 H 267 H 205 Test 09/21/18 05:25 09/21/18 09:00 09/21/18 12:16 White Blood Count 14.8 #H Red Blood Count 3.81 L Hemoglobin 10.4 L Hematocrit 35.2 L Mean Corpuscular Volume 92.4 Mean Corpuscular 27.3 L Hemoglobin Mean Corpuscular 29.5 L Hemoglobin Concent Red Cell Distribution 15.5 H Width Platelet Count 232 Mean Platelet Volume 11.6 H Immature Granulocytes % 0.400 Neutrophils % 81.3 H Lymphocytes % 11.3 L Monocytes % 6.6 Eosinophils % 0.3 Basophils % 0.1 Nucleated Red Blood 0.0 Cells % Immature Granulocytes # 0.060 H Neutrophils # 12.0 H Lymphocytes # 1.7 Monocytes # 1.0 H Eosinophils # 0.0 Basophils # 0.0 Nucleated Red Blood 0.0 Cells # Sodium Level 138 Potassium Level 4.4 Chloride Level 96 L Carbon Dioxide Level 39 H Anion Gap 3 L Blood Urea Nitrogen 21 H Creatinine 0.67 Est Glomerular Filtrat > 60 Rate mL/min Glucose Level 206 Hemoglobin A1c 10.3 H Calcium Level 8.4 Bedside Glucose 203 159 Subjective 24 Hr Interval Summary Free Text/Dictation Patient is feeling very bloated. Gained a lot of weight Exam/Review of Systems Exam Vitals Vital Signs Date Temp Pulse Resp B/P (MAP) Pulse Ox O2 O2 Flow FiO2 Time Delivery Rate 09/21/18 78 12:00 09/21/18 2.0 11:11 09/21/18 98.0 18 137/70 98 07:36 (92) 09/20/18 Nasal 21:05 Cannula Intake and Output 09/20/18 09/20/18 09/21/18 1515:00 23:00 07:00 IntakeIntake Total 800 ml 500 ml OutputOutput Total 2700 ml 1000 ml BalanceBalance -1900 ml -500 ml Exam Constitutional: alert, oriented, MORBIDLY OBese Head: normocephalic Eyes: nl conjunctiva ENMT: nl external ears & nose Neck: supple Respiratory: decreased breath sounds bases Cardiovascular: regular rate and rhythm Gastrointestinal: soft, surgical scars, other (hernia) Musculoskeletal: range of motion (decreased ROM right knee) Extremities: edema; r> l, knee TTP on rt Results Results 24hrs Laboratory Tests Test 09/20/18 15:00 09/20/18 17:15 09/20/18 21:58 09/21/18 03:18 Urine Opiates Screen Positive Urine Barbiturates Negative Urine Amphetamines Negative Screen Urine Benzodiazepines Negative Screen Urine Cocaine Screen Positive Urine Cannabinoids Positive Bedside Glucose 298 H 267 H 205 Test 09/21/18 05:25 09/21/18 09:00 09/21/18 12:16 White Blood Count 14.8 #H Red Blood Count 3.81 L Hemoglobin 10.4 L Hematocrit 35.2 L Mean Corpuscular Volume 92.4 Mean Corpuscular 27.3 L Hemoglobin Mean Corpuscular 29.5 L Hemoglobin Concent Red Cell Distribution 15.5 H Width Platelet Count 232 Mean Platelet Volume 11.6 H Immature Granulocytes % 0.400 Neutrophils % 81.3 H Lymphocytes % 11.3 L Monocytes % 6.6 Eosinophils % 0.3 Basophils % 0.1 Nucleated Red Blood 0.0 Cells % Immature Granulocytes # 0.060 H Neutrophils # 12.0 H Lymphocytes # 1.7 Monocytes # 1.0 H Eosinophils # 0.0 Basophils # 0.0 Nucleated Red Blood 0.0 Cells # Sodium Level 138 Potassium Level 4.4 Chloride Level 96 L Carbon Dioxide Level 39 H Anion Gap 3 L Blood Urea Nitrogen 21 H Creatinine 0.67 Est Glomerular Filtrat > 60 Rate mL/min Glucose Level 206 Hemoglobin A1c 10.3 H Calcium Level 8.4 Bedside Glucose 203 159 Medications Medication Current Medications Diagnostic Test (Pha) (Accu-Chek) 1 ea 02 XX Last administered on 09/21/18 02:00; Admin Dose 1 EA; Start 09/21/18 at 02:00 Insulin Glargine (Lantus) 30 units QHS SC Last administered on 09/20/18 22:45; Admin Dose 30 UNITS; Start 09/20/18 at 21:00 Insulin Aspart (Novolog Insulin Pen) NOVOLOG *MODERATE* ALGORITHM WITH MEALS BEDTIME SC Last administered on 09/21/18 12:18; Admin Dose 2 UNIT; Start 09/20/18 at 08:00 Aspirin (Aspirin) 81 mg DAILY PO Last administered on 09/21/18 09:12; Admin Dose 81 MG; Start 09/20/18 at 09:00 Atorvastatin Calcium (Lipitor) 10 mg QHS PO Last administered on 09/20/18 22:00; Admin Dose 10 MG; Start 09/20/18 at 21:00 Bisacodyl (Dulcolax) 5 mg DAILY PRN PO NEEDED; Start 09/20/18 at 08:30 Digoxin (Digoxin) 0.125 mg DAILY@13 PO Last administered on 09/21/18 12:21; Admin Dose 0.125 MG; Start 09/20/18 at 13:00 Docusate Sodium (Colace) 100 mg Q12 PO Last administered on 09/20/18at 22:00; Admin Dose 100 MG; Start 09/20/18 at 09:00 Guaifenesin/ Dextromethorphan (Robitussin Dm Liquid Cup) 5 ml Q6H RESP THERAPY PRN PO COUGH; Start 09/20/18 at 08:30 Ondansetron HCl (Zofran Odt) 4 mg Q6H PRN ODT NAUSEA AND/OR VOMITING; Start 09/20/18 at 08:30 Pantoprazole (Protonix Tab) 40 mg DAILY@0600 PO Last administered on 09/20/18at 10:06; Admin Dose 40 MG; Start 09/20/18 at 08:30 Diagnostic Test (Pha) (Accu-Chek) 1 ea AC MEALS AND BEDTIME XX Last administered on 09/21/18at 12:17; Admin Dose 1 EA; Start 09/20/18 at 11:30 Miscellaneous Information 1 ea NOTE XX ; Start 09/20/18 at 08:30 Glucose (Glutose) 15 gm Q15M PRN PO DECREASED GLUCOSE; Start 09/20/18 at 08:30 Glucose (Glutose) 22.5 gm Q15M PRN PO DECREASED GLUCOSE; Start 09/20/18 at 08:30 Dextrose (D50w Syringe) 25 ml Q15M PRN IV DECREASED GLUCOSE; Start 09/20/18 at 08:30 Dextrose (D50w Syringe) 50 ml Q15M PRN IV DECREASED GLUCOSE; Start 09/20/18 at 08:30 Glucagon (Glucagen) 1 mg Q15M PRN IM DECREASED GLUCOSE; Start 09/20/18 at 08:30 Glucose (Glutose) 15 gm Q15M PRN BUCCAL DECREASED GLUCOSE; Start 09/20/18 at 08:30 Ibuprofen (Motrin) 600 mg BID PRN PO PAIN; Start 09/20/18 at 09:30 Albuterol/ Ipratropium (Duoneb) 3 ml Q6H RESP THERAPY PRN INH WHEEZING AND SOB Last administered on 09/20/18at 15:33; Admin Dose 3 ML; Start 09/20/18 at 10:00 Diclofenac Sodium (Voltaren 1% Gel) 2 gm QID TP Last administered on 09/21/18at 12:22; Admin Dose 2 GM; Start 09/20/18 at 13:00 Lorazepam (Ativan) 0.5 mg DAILY PRN PO ANXIETY Last administered on 09/20/18at 14:03; Admin Dose 0.5 MG; Start 09/20/18 at 10:30 Quetiapine Fumarate (Seroquel) 100 mg HS PO Last administered on 09/20/18at 22:00; Admin Dose 100 MG; Start 09/20/18 at 21:00 Apixaban (Eliquis) 5 mg BID PO Last administered on 09/21/18at 09:12; Admin Dose 5 MG; Start 09/20/18 at 10:30 Tramadol HCl (Ultram) 50 mg Q6H PRN PO MODERATE PAIN LEVEL 4-6; Start 09/20/18 at 10:30 Lisinopril (Zestril) 5 mg DAILY PO Last administered on 09/21/18at 09:13; Admin Dose 5 MG; Start 09/20/18 at 15:30 Metoprolol Succinate (Toprol Xl) 25 mg BID PO Last administered on 09/21/18at 09:12; Admin Dose 25 MG; Start 09/20/18 at 21:00 Furosemide (Lasix) 40 mg BID PO ; Start 09/21/18 at 21:00 Ketorolac Tromethamine (Toradol) 15 mg Q8H PRN IV PAIN; Start 09/21/18 at 13:30; Stop 09/24/18 at 13:29 ALEKSANDRA SALCIDO MD Sep 21, 2018 13:36
[2018-09-21] MEDS: KETOROLAC 15 MG INJ IV PRN (13:51)
--- NOTE | 2018-09-21 14:16 | RADRPT ---
Echocardiogram Report Patient Name: JEAN-CLAUDE SHAFFERPatient ID: [id number] : 1970 (48y 3m)Study Date: 09/21/2018 7:31:57 AM Gender: FAccession #: [id number] Tech: AissatouRicha Walton [facility] Location: [id number] Ref.Physician: MITA HENAO Height(Cm): BSA: Weight(Kg): Quality: AdequateOrder Physician: MITA HENAO Account #: Procedures: Echocardiographic Report: Transthoracic echocardiogram with complete 2D, M-Mode, and doppler examination. Indications: Chest Pain. Measurements: 2D/M Mode Doppler Measurement Value Normal Range Measurement Value Normal Range LVIDd 2D 5.6 [ 3.8 - 5.2 ] cm AV Peak Rian 1.3 [ 100.0 - 170.0 ] cm/sec LVIDs 2D 5.4 [ 2.2 - 3.5 ] cm AV Peak PG 7.0 [ 2.0 - 9.0 ] mmHg LVPWd 2D 0.9 [ 0.6 - 0.9 ] cm LVOT Peak Rian 0.9 [ 70.0 - 110.0 ] cm/sec IVSd 2D 0.9 [ 0.6 - 0.9 ] cm LVOT Peak PG 3.0 [ 2.0 - 6.0 ] mmHg AoR Diam 2D 2.5 [ 2.3 - 3.1 ] cm MV E Peak Rian 1.4 [ 60.0 - 130.0 ] cm/sec EDV 2D 154.0 [ 46.0 - 106.0 ] ml MV A Peak Rian 0.5 [ 100.0 - 120.0 ] cm/sec ESV 2D 144.0 [ 14.0 - 42.0 ] ml MV E/A 2.9 [ 0.8 - 1.5 ] ratio EF 2D 6.5 [ 54.0 - 74.0 ] percent MV Decel Time 141 [ 104 - 258 ] msec LA Dimen 2D 3.9 [ 2.7 - 3.8 ] cm Lat E` Rian 0.1 [ 10.0 - 15.0 ] cm/sec Lateral E/E` 20.2 [ 1.0 - 2.0 ] ratio MV E/A 2.9 [ 0.8 - 1.5 ] ratio TR Peak Rian 2.9 [ 100.0 - 280.0 ] cm/sec TR Peak PG 34.0 mmHg RVSP 49.0 [ 10.0 - 36.0 ] mmHg RA Pressure 15.0 mmHg Findings: Left Ventricle: Normal left ventricular wall thickness. Mild enlargement of left ventricle cavity. Severe global left ventricular systolic dysfunction. Ejection fraction is visually estimated at 25 %. Tissue Doppler/Mitral Doppler indices are consistent with restrictive physiology with markedly elevated left atrial pressure (Stage III-IV diastolic dysfunction). Right Ventricle: Normal right ventricular size. Normal right ventricular systolic function. Left Atrium: The left atrium is normal in size. Right Atrium: The right atrium is normal in size. Mitral Valve: Mitral valve leaflets appear mildly thickened. Mild mitral annular calcification. Moderate to severe mitral valve regurgitation. Aortic Valve: Normal appearance of the aortic valve. No significant aortic stenosis or insufficiency. Tricuspid Valve: Normal appearance of the tricuspid valve. The estimated Peak RVSP is 49 mmHg. There is moderate tricuspid regurgitation. Pulmonic Valve: Normal pulmonic valve appearance. Pericardium: Normal pericardium with no significant pericardial effusion. Aorta: Normal aortic root. IVC: Dilated IVC without respiratory collapse consistent with elevated right atrial pressure. Conclusions: Normal left ventricular wall thickness. Mild enlargement of left ventricle cavity. Severe global left ventricular systolic dysfunction. Ejection fraction is visually estimated at 25 %. Tissue Doppler/Mitral Doppler indices are consistent with restrictive physiology with markedly elevated left atrial pressure (Stage III-IV diastolic dysfunction). Mitral valve leaflets appear mildly thickened. Mild mitral annular calcification. Moderate to severe mitral valve regurgitation. Normal appearance of the tricuspid valve. The estimated Peak RVSP is 49 mmHg. There is moderate tricuspid regurgitation. Electronically Signed By: Dionte Hall 2018-09-21 14:16:15 PDT
[2018-09-21] MEDS: LORAZEPAM 0.5 MG TAB PO PRN (17:16)
[2018-09-21] MEDS: traMADol 50 MG TAB PO PRN (18:00)
[2018-09-21] MEDS: ALBUTEROL/IPRATROPIUM (NEB) 3 ML AMP INH PRN (18:20)
[2018-09-21] MEDS: ATORVASTATIN 10 MG TAB PO SCH (20:25)
[2018-09-21] MEDS: FUROSEMIDE 40 MG TAB PO SCH (20:25)
[2018-09-21] MEDS: QUETIAPINE 100 MG TAB PO SCH (20:26)
[2018-09-21] MEDS: INSULIN GLARGINE [LANTus] (100 UNITS/ML) SYG SC SCH (20:38)
[2018-09-21] MEDS: ONDANSETRON 4 MG INJ IV PRN (23:35)
[2018-09-22] VITALS (10 sets, daily range): BP systolic 95–134; BP diastolic 51–79; PULSE 72–98; RESP 18
[2018-09-22] MEDS: ACCU-CHEK XX SCH ×5 (01:16→21:03)
[2018-09-22] MEDS ORDERED: ACCU-CHEK XX SCH (02:00)
[2018-09-22] MEDS: KETOROLAC 15 MG INJ IV PRN ×2 (02:58→11:34)
[2018-09-22] MEDS ORDERED: SOD CHLORIDE 0.45% 1,000 ML IV SCH (04:00)
[2018-09-22] MEDS ORDERED: METOCLOPRAMIDE 10 MG INJ IV PRN ×2 (04:00→04:30)
[2018-09-22] MEDS: PANTOPRAZOLE (EC) 40 MG TAB PO SCH (06:00)
[2018-09-22] MEDS: INSULIN ASPART [NOVOLOG] 3 ML PEN SC SCH ×7 (07:52→20:54)
[2018-09-22] MEDS: ONDANSETRON 4 MG INJ IV PRN ×3 (07:53→20:26)
[2018-09-22] MEDS: DOCUSATE SODIUM 100 MG CAP PO SCH ×2 (08:11→20:26)
[2018-09-22] MEDS: ASPIRIN 81 MG TAB PO SCH (08:11)
[2018-09-22] MEDS: LISINOPRIL 5 MG TAB PO SCH (08:12)
[2018-09-22] MEDS: METOPROLOL (XL) 25 MG TAB PO SCH ×2 (08:12→20:26)
[2018-09-22] MEDS: DICLOFENAC SODIUM 1% GEL 100 GM TUBE TP SCH ×5 (08:16→21:40)
[2018-09-22] MEDS: APIXABAN 5 MG TABLET PO SCH ×2 (08:16→20:26)
[2018-09-22] MEDS: FUROSEMIDE 40 MG TAB PO SCH (08:16)
--- NOTE | 2018-09-22 08:57 | CONS ---
Consult Date/Type/Reason Admit Date/Time Sep 20, 2018 at 04:29 Initial Consult Date Requesting Provider: ROMAINE URENA MD Date/Time of Note DATE: 09/22/18 TIME: 08:54 Subjective Pt now with bouts of nausea and vomiting - not able to tolerate PO - urine cloudy - will await for GI evaluation. ROS: No fever, no chills, + nausea, + vomiting, no diarrhea/constipation No recent weight changes No chest pain, no PND, no orthopnea + SOB No dizziness, blurred vision No thirst, no heat or cold intolerance Objective Vitals Vital Signs Date Temp Pulse Resp B/P (MAP) Pulse Ox O2 O2 Flow FiO2 Time Delivery Rate 09/22/18 Nasal 2.0 08:32 Cannula 09/22/18 79 08:14 09/22/18 98.0 18 119/78 98 07:41 (92) Intake and Output 09/21/18 09/21/18 09/22/18 1515:00 23:00 07:00 IntakeIntake Total 800 ml OutputOutput Total 1800 ml BalanceBalance -1000 ml Exam General: WN/WD/vomiting now AOx 3 HEENT: Unicetric/atraumatic/EOMI (follow commands) NECK: JVD elevated, no thyromegaly Lymph: no lymphadenopathy HEART: regular with no S3, II/ systolic murmur at apex LUNGS: Coarse sounds ABD: soft, NT, ND, +BS : Intact, [place] Neuro: non focal SKIN: chronic changes EXT: 2+ edema Results/Medications Result Diagram: 09/22/18 0509/22/18 0526 Results 24 hrs Laboratory Tests Test 09/21/18 09:00 09/21/18 12:16 09/21/18 17:06 09/21/18 20:24 Bedside Glucose 203 159 198 166 Test 09/22/18 05:26 09/22/18 07:47 White Blood Count 9.7 # Red Blood Count 4.15 L Hemoglobin 11.3 L Hematocrit 38.3 Mean Corpuscular Volume 92.3 Mean Corpuscular 27.2 L Hemoglobin Mean Corpuscular 29.5 L Hemoglobin Concent Red Cell Distribution 15.9 H Width Platelet Count 253 Mean Platelet Volume 11.5 H Immature Granulocytes % 0.400 Neutrophils % 75.2 Lymphocytes % 16.1 Monocytes % 7.2 Eosinophils % 0.6 Basophils % 0.5 Nucleated Red Blood 0.0 Cells % Immature Granulocytes # 0.040 H Neutrophils # 7.3 Lymphocytes # 1.6 Monocytes # 0.7 Eosinophils # 0.1 Basophils # 0.1 Nucleated Red Blood 0.0 Cells # Sodium Level 138 Potassium Level 5.1 Chloride Level 95 L Carbon Dioxide Level 37 H Anion Gap 6 Blood Urea Nitrogen 28 H Creatinine 0.81 Est Glomerular Filtrat > 60 Rate mL/min Glucose Level 181 Calcium Level 8.3 L Phosphorus Level 4.2 Magnesium Level 1.7 Bedside Glucose 202 Home Meds Active Scripts Prednisone* (Prednisone*) 10 Mg Tab, 10 MG PO DAILY for 7 Days, TAB Prov:MITA HNEAO MD 07/19/18 Ergocalciferol (Vitamin D2) (VITAMIN D2) 50,000 Unit Capsule, 48180 UNIT PO Baez@09 for 28 Days, CAP Prov:MITA HENAO MD 07/19/18 Insulin Aspart* (Novolog Insulin Pen*) 100 Unit/Ml Soln, 7 UNIT SC WITH MEALS for 28 Days Prov:MITA HENAO MD 07/19/18 Polyethylene Glycol* (Miralax*) 17 Gm Powd.pack, 17 GM PO DAILY PRN for CONSTIPATION for 28 Days Prov:MITA HENAO MD 07/19/18 Docusate Sodium* (Colace*) 100 Mg Capsule, 100 MG PO Q12H for 14 Days, CAP Prov:MITA HENAO MD 07/19/18 Acetazolamide* (Acetazolamide*) 250 Mg Tablet, 250 MG PO DAILY for 10 Days, TAB Prov:MITA HENAO MD 07/19/18 Tramadol HCl (Tramadol HCl) 50 Mg Tablet, 50 MG PO Q6H PRN for MODERATE PAIN LEVEL 4-6 for 14 Days, TAB Prov:MITA HENAO MD 07/19/18 Aspirin (Aspirin) 81 Mg Chew, 81 MG PO DAILY for 28 Days, TAB Prov:MITA HENAO MD 07/19/18 Digoxin* (Digitek*) 125 Mcg Tablet, 0.125 MG PO DAILY@13 for 28 Days, TAB Prov:MITA HENAO MD 07/19/18 Apixaban* (Eliquis*) 5 Mg Tablet, 5 MG PO BID for 28 Days, TAB Prov:MITA HENAO MD 07/19/18 Ondansetron (Ondansetron Odt) 4 Mg Tab.rapdis, 4 MG PO Q6H PRN for NAUSEA AND/OR VOMITING, #10 TAB Prov:COLBY CHRIS DO 06/09/18 Umkyebxpxpn-L-Omqrnzslrv Hb* (Guaifenesin* DM Syrup) 120 Ml Syrup, 5 ML PO Q6H RESP THERAPY PRN for COUGH for 10 Days Prov:ALEKSANDRA SALCIDO MD 06/08/18 Ipratropium-Albuterol (Ipratropium-Albuterol) 0.5-3 Mg/3 Ml Ampul.neb, 3 ML INHALATION Q4H PRN for WHEEZING AND SOB for 10 Days, #3 VIAL Prov:ALEKSANDRA SALCIDO MD 06/08/18 Pantoprazole* (Protonix*) 40 Mg Tablet.dr, 40 MG PO DAILY for 30 Days, TAB Prov:ALEKSANDRA SALCIDO MD 04/22/18 Apixaban* (Eliquis*) 5 Mg Tablet, 5 MG PO BID for 30 Days, TAB Prov:ALEKSANDRA SALCIDO MD 04/22/18 Digoxin* (Digitek*) 125 Mcg Tablet, 0.125 MG PO DAILY@13 for 30 Days, TAB Prov:ALEKSANDRA SALCIDO MD 04/22/18 Furosemide* (Furosemide*) 40 Mg Tablet, 40 MG PO BID for 30 Days, TAB Prov:ALEKSANDRA SALCIDO MD 04/22/18 Lorazepam* (Ativan*) 0.5 Mg Tablet, 0.5 MG PO HS PRN for ANXIETY for 5 Days, #30 TAB Prov:ALEKSNADRA SALCIDO MD 04/22/18 Insulin Glargine,Hum.rec.anlog (Basaglar Kwikpen U-100) 100 Unit/1 Ml Insuln.pen, 30 UNIT SC QHS for 30 Days, EA Prov:ALEKSANDRA SALCIDO MD 04/22/18 Quetiapine Fumarate* (Seroquel*) 100 Mg Tablet, 100 MG PO DAILY, #30 TAB Prov:ALEKSANDRA SALCIDO MD 04/22/18 Metformin Hcl* (Metformin Hcl*) 1,000 Mg Tablet, 1000 MG PO WITH BREAKFAST DINNE for 30 Days, #60 TAB Prov:ALEKSANDRA SALCIDO MD 04/22/18 Docusate Sodium* (Colace*) 100 Mg Capsule, 100 MG PO Q12H for 30 Days, #60 CAP Prov:ALEKSANDRA SALCIDO MD 04/22/18 Atorvastatin Calcium (Atorvastatin Calcium) 10 Mg Tablet, 10 MG PO QHS for 30 Days, #30 TAB Prov:ALEKSANDRA SALCIDO MD 04/22/18 Ibuprofen* (Motrin*) 600 Mg Tab, 600 MG PO Q6, #30 TAB Prov:NAIN KINGSLEY PA-C 02/16/18 Reported Medications Metoprolol Succinate* (Toprol XL*) 25 Mg Tab.sr.24h, 25 MG PO BID, #30 TAB 06/02/18 Lisinopril* (Lisinopril*) 5 Mg Tablet, 5 MG PO DAILY, #30 TAB 06/02/18 Bisacodyl* (Bisacodyl*) 5 Mg Tablet.dr, 5 MG PO DAILY PRN for NEEDED, TAB 01/28/18 Medications Current Medications Diagnostic Test (Pha) (Accu-Chek) 1 ea 02 XX Last administered on 09/21/18at 02:00; Admin Dose 1 EA; Start 09/21/18 at 02:00 Insulin Glargine (Lantus) 30 units QHS SC Last administered on 09/21/18at 20:38; Admin Dose 30 UNITS; Start 09/20/18 at 21:00 Insulin Aspart (Novolog Insulin Pen) NOVOLOG *MODERATE* ALGORITHM WITH MEALS BEDTIME SC Last administered on 09/21/18at 17:14; Admin Dose 4 UNIT; Start 09/20/18 at 08:00 Aspirin (Aspirin) 81 mg DAILY PO Last administered on 09/21/18at 09:12; Admin Dose 81 MG; Start 09/20/18 at 09:00 Atorvastatin Calcium (Lipitor) 10 mg QHS PO Last administered on 09/21/18at 20:25; Admin Dose 10 MG; Start 09/20/18 at 21:00 Bisacodyl (Dulcolax) 5 mg DAILY PRN PO NEEDED; Start 09/20/18 at 08:30 Digoxin (Digoxin) 0.125 mg DAILY@13 PO Last administered on 09/21/18at 12:21; Admin Dose 0.125 MG; Start 09/20/18 at 13:00 Docusate Sodium (Colace) 100 mg Q12 PO Last administered on 09/21/18 20:25; Admin Dose 100 MG; Start 09/20/18 at 09:00 Guaifenesin/ Dextromethorphan (Robitussin Dm Liquid Cup) 5 ml Q6H RESP THERAPY PRN PO COUGH; Start 09/20/18 at 08:30 Ondansetron HCl (Zofran Odt) 4 mg Q6H PRN ODT NAUSEA AND/OR VOMITING Last administered on 09/21/18 23:25; Admin Dose 4 MG; Start 09/20/18 at 08:30 Pantoprazole (Protonix Tab) 40 mg DAILY@0600 PO Last administered on 09/20/18 10:06; Admin Dose 40 MG; Start 09/20/18 at 08:30 Diagnostic Test (Pha) (Accu-Chek) 1 ea AC MEALS AND BEDTIME XX Last administered on 09/21/18 21:15; Admin Dose 1 EA; Start 09/20/18 at 11:30 Miscellaneous Information 1 ea NOTE XX ; Start 09/20/18 at 08:30 Glucose (Glutose) 15 gm Q15M PRN PO DECREASED GLUCOSE; Start 09/20/18 at 08:30 Glucose (Glutose) 22.5 gm Q15M PRN PO DECREASED GLUCOSE; Start 09/20/18 at 08:30 Dextrose (D50w Syringe) 25 ml Q15M PRN IV DECREASED GLUCOSE; Start 09/20/18 at 08:30 Dextrose (D50w Syringe) 50 ml Q15M PRN IV DECREASED GLUCOSE; Start 09/20/18 at 08:30 Glucagon (Glucagen) 1 mg Q15M PRN IM DECREASED GLUCOSE; Start 09/20/18 at 08:30 Glucose (Glutose) 15 gm Q15M PRN BUCCAL DECREASED GLUCOSE; Start 09/20/18 at 08:30 Albuterol/ Ipratropium (Duoneb) 3 ml Q6H RESP THERAPY PRN INH WHEEZING AND SOB Last administered on 09/21/18 18:20; Admin Dose 3 ML; Start 09/20/18 at 10:00 Diclofenac Sodium (Voltaren 1% Gel) 2 gm QID TP Last administered on 09/22/18 08:16; Admin Dose 2 GM; Start 09/20/18 at 13:00 Lorazepam (Ativan) 0.5 mg DAILY PRN PO ANXIETY Last administered on 09/21/18 17:16; Admin Dose 0.5 MG; Start 09/20/18 at 10:30 Quetiapine Fumarate (Seroquel) 100 mg HS PO Last administered on 09/21/18 20:26; Admin Dose 100 MG; Start 09/20/18 at 21:00 Apixaban (Eliquis) 5 mg BID PO Last administered on 09/21/18 20:25; Admin Dose 5 MG; Start 09/20/18 at 10:30 Tramadol HCl (Ultram) 50 mg Q6H PRN PO MODERATE PAIN LEVEL 4-6 Last administered on 09/21/18 18:00; Admin Dose 50 MG; Start 09/20/18 at 10:30 Lisinopril (Zestril) 5 mg DAILY PO Last administered on 09/21/18 09:13; Admin Dose 5 MG; Start 09/20/18 at 15:30 Metoprolol Succinate (Toprol Xl) 25 mg BID PO Last administered on 09/21/18 20:25; Admin Dose 25 MG; Start 09/20/18 at 21:00 Furosemide (Lasix) 40 mg BID PO Last administered on 09/21/18 20:25; Admin Dose 40 MG; Start 09/21/18 at 21:00 Ketorolac Tromethamine (Toradol) 15 mg Q8H PRN IV PAIN Last administered on 09/22/18 02:58; Admin Dose 15 MG; Start 09/21/18 at 13:30; Stop 09/24/18 at 13:29 Insulin Aspart (Novolog Insulin Pen) 4 unit WITH MEALS SC Last administered on 09/21/18 17:14; Admin Dose 4 UNIT; Start 09/21/18 at 18:00 Ondansetron HCl (Zofran Inj) 4 mg Q6H PRN IV NAUSEA AND/OR VOMITING Last administered on 09/22/18 07:53; Admin Dose 4 MG; Start 09/21/18 at 23:30 Sodium Chloride 1,000 ml @ 0 mls/hr Q0M IV Last administered on 09/22/18 04:10; Admin Dose 20 MLS/HR; Start 09/22/18 at 04:00 Metoclopramide HCl (Reglan) 10 mg Q8 PRN IV NAUSEA AND/OR VOMITING Last administered on 09/22/18at 06:05; Admin Dose 10 MG; Start 09/22/18 at 04:30 Assessment/Plan Hospital Course (Demo Recall) 1. Congestive heart failure exacerbation. The patient is with congestive heart failure exacerbation, systolic, acute on chronic. Continue afterload reduction and diuresis. NOw not able to take po with nausea -will hold off and adders GI issues first. 2. Hypertension. Blood pressure is well controlled now. Continue to adjust medications as needed. BETTER now. 3. Paroxysmal atrial fibrillation. The patient is in sinus rhythm now. She is anticoagulated with Eliquis. Continue to monitor. 4. Secondary hypercoagulable state. Continue Eliquis as indicated. 5. Fall, appears to be mechanical by examination. Continue to adjust medicines as needed. 6. N&V - Zogelyran, GI to follow. JOHN BOWERS MD Sep 22, 2018 08:57
[2018-09-22] MEDS ORDERED: morphine 2 MG INJ IV STA (12:45)
--- NOTE | 2018-09-22 12:56 | PN ---
Date/Time of Note Date/Time of Note DATE: 09/22/18 TIME: 12:52 Assessment/Plan VTE Prophylaxis Risk score (from Ns)>0 risk: 4 [place] [facility] [place] contraindicated: low risk/ambulating Pharmacological prophylaxis: NA/contraindicated Pharm contraindication: low risk/ambulating Lines/Catheters IV Catheter Type (from [facility], [place]): [place] [facility] Urinary Cath still in place: Yes Reason Cath still needed: urinary retention Assessment/Plan Assessment/Plan Hospital Course #. Chest pain/pressure type, r/o coronary syndrome neg cath before no ACS #. S.p incomplete fall, pain in right knee. Difficulties walking. X ray showed: Mild degenerative changes of the right knee, more pronounced in the lateral compartment. # .CHF-systolic acute on chronic with weight gain, edema #Cardiomyopathy-EF 25-30 by echo 04/07. Nonischemic by cath # Hypertension. # Hyperlipidemia. #. Normocytic hypochromic anemia #. Chronic hypercarbic respiratory failure, on BIPAP at home. #. Uncontrolled diabetes # Morbid obesity. #. Abdominal wall hernia, s/p surgery. #. History of metabolic alkalosis. #. History of chronic atrial fibrillation. # Drug use +cocaine # Vommiting/epigastric pain ? GERD// Gastritis/ bowel obstruction Assessment/Plan - NPO - IV PPI/Pain control/zofran/reglan - Abd US - kub neg for obstrcution - LFT - gi consult -dc toradol - cw lasix to 40 bid - fluid restriction - cw ASA/MTP/Lissopril/digoxin - iv toradol, avoid narcotics - dec lantus if NPO - PT eval - fu cardiac recs -chest x-ray showed: Moderate cardiomegaly with pulmonary vascular congestion.. -DVT proph. Eliquiz BID - GI proph. protonix Result Diagram: 09/22/1852509/22/18525 Results 24hrs Laboratory Tests Test 09/21/18 17:06 09/21/18 20:24 09/22/18 05:26 09/22/18 07:47 Bedside Glucose 198 166 202 White Blood Count 9.7 # Red Blood Count 4.15 L Hemoglobin 11.3 L Hematocrit 38.3 Mean Corpuscular Volume 92.3 Mean Corpuscular 27.2 L Hemoglobin Mean Corpuscular 29.5 L Hemoglobin Concent Red Cell Distribution 15.9 H Width Platelet Count 253 Mean Platelet Volume 11.5 H Immature Granulocytes % 0.400 Neutrophils % 75.2 Lymphocytes % 16.1 Monocytes % 7.2 Eosinophils % 0.6 Basophils % 0.5 Nucleated Red Blood 0.0 Cells % Immature Granulocytes # 0.040 H Neutrophils # 7.3 Lymphocytes # 1.6 Monocytes # 0.7 Eosinophils # 0.1 Basophils # 0.1 Nucleated Red Blood 0.0 Cells # Sodium Level 138 Potassium Level 5.1 Chloride Level 95 L Carbon Dioxide Level 37 H Anion Gap 6 Blood Urea Nitrogen 28 H Creatinine 0.81 Est Glomerular Filtrat > 60 Rate mL/min Glucose Level 181 Calcium Level 8.3 L Phosphorus Level 4.2 Magnesium Level 1.7 Test 09/22/18 11:33 Bedside Glucose 181 Subjective 24 Hr Interval Summary Free Text/Dictation having episodes of vomitting, epigastric pain had Bm Yesterday Exam/Review of Systems Exam Vitals Vital Signs Date Temp Pulse Resp B/P (MAP) Pulse Ox O2 O2 Flow FiO2 Time Delivery Rate 09/22/18 98.0 81 18 121/75 98 12:27 (90) 09/22/18 Nasal 2.0 08:32 Cannula Intake and Output 09/21/18 09/21/18 09/22/18 1515:00 23:00 07:00 IntakeIntake Total 800 ml OutputOutput Total 1800 ml BalanceBalance -1000 ml Exam Constitutional: alert, oriented, MORBIDLY OBese Head: normocephalic Eyes: nl conjunctiva ENMT: nl external ears & nose Neck: supple Respiratory: decreased breath sounds bases Cardiovascular: regular rate and rhythm Gastrointestinal: soft, surgical scars, other (hernia) TTP in epigastrium Musculoskeletal: range of motion (decreased ROM right knee) Extremities: edema; r> l, knee TTP on rt Results Results 24hrs Laboratory Tests Test 09/21/18 17:06 09/21/18 20:24 09/22/18 05:26 09/22/18 07:47 Bedside Glucose 198 166 202 White Blood Count 9.7 # Red Blood Count 4.15 L Hemoglobin 11.3 L Hematocrit 38.3 Mean Corpuscular Volume 92.3 Mean Corpuscular 27.2 L Hemoglobin Mean Corpuscular 29.5 L Hemoglobin Concent Red Cell Distribution 15.9 H Width Platelet Count 253 Mean Platelet Volume 11.5 H Immature Granulocytes % 0.400 Neutrophils % 75.2 Lymphocytes % 16.1 Monocytes % 7.2 Eosinophils % 0.6 Basophils % 0.5 Nucleated Red Blood 0.0 Cells % Immature Granulocytes # 0.040 H Neutrophils # 7.3 Lymphocytes # 1.6 Monocytes # 0.7 Eosinophils # 0.1 Basophils # 0.1 Nucleated Red Blood 0.0 Cells # Sodium Level 138 Potassium Level 5.1 Chloride Level 95 L Carbon Dioxide Level 37 H Anion Gap 6 Blood Urea Nitrogen 28 H Creatinine 0.81 Est Glomerular Filtrat > 60 Rate mL/min Glucose Level 181 Calcium Level 8.3 L Phosphorus Level 4.2 Magnesium Level 1.7 Test 09/22/18 11:33 Bedside Glucose 181 Medications Medication Current Medications Diagnostic Test (Pha) (Accu-Chek) 1 ea 02 XX Last administered on 09/21/18 02:00; Admin Dose 1 EA; Start 09/21/18 at 02:00 Insulin Glargine (Lantus) 30 units QHS SC Last administered on 09/21/18 20:38; Admin Dose 30 UNITS; Start 09/20/18 at 21:00 Insulin Aspart (Novolog Insulin Pen) NOVOLOG *MODERATE* ALGORITHM WITH MEALS BEDTIME SC Last administered on 09/21/18 17:14; Admin Dose 4 UNIT; Start 09/20/18 at 08:00 Aspirin (Aspirin) 81 mg DAILY PO Last administered on 09/21/18 09:12; Admin Dose 81 MG; Start 09/20/18 at 09:00 Atorvastatin Calcium (Lipitor) 10 mg QHS PO Last administered on 09/21/18 20:25; Admin Dose 10 MG; Start 09/20/18 at 21:00 Bisacodyl (Dulcolax) 5 mg DAILY PRN PO NEEDED; Start 09/20/18 at 08:30 Digoxin (Digoxin) 0.125 mg DAILY@13 PO Last administered on 09/21/18 12:21; Admin Dose 0.125 MG; Start 09/20/18 at 13:00 Docusate Sodium (Colace) 100 mg Q12 PO Last administered on 09/21/18 20:25; Admin Dose 100 MG; Start 09/20/18 at 09:00 Guaifenesin/ Dextromethorphan (Robitussin Dm Liquid Cup) 5 ml Q6H RESP THERAPY PRN PO COUGH; Start 09/20/18 at 08:30 Ondansetron HCl (Zofran Odt) 4 mg Q6H PRN ODT NAUSEA AND/OR VOMITING Last administered on 09/21/18 23:25; Admin Dose 4 MG; Start 09/20/18 at 08:30 Diagnostic Test (Pha) (Accu-Chek) 1 ea AC MEALS AND BEDTIME XX Last administered on 09/22/18 11:33; Admin Dose 1 EA; Start 09/20/18 at 11:30 Miscellaneous Information 1 ea NOTE XX ; Start 09/20/18 at 08:30 Glucose (Glutose) 15 gm Q15M PRN PO DECREASED GLUCOSE; Start 09/20/18 at 08:30 Glucose (Glutose) 22.5 gm Q15M PRN PO DECREASED GLUCOSE; Start 09/20/18 at 08:30 Dextrose (D50w Syringe) 25 ml Q15M PRN IV DECREASED GLUCOSE; Start 09/20/18 at 0 8:30 Dextrose (D50w Syringe) 50 ml Q15M PRN IV DECREASED GLUCOSE; Start 09/20/18 at 08:30 Glucagon (Glucagen) 1 mg Q15M PRN IM DECREASED GLUCOSE; Start 09/20/18 at 08:30 Glucose (Glutose) 15 gm Q15M PRN BUCCAL DECREASED GLUCOSE; Start 09/20/18 at 08:30 Albuterol/ Ipratropium (Duoneb) 3 ml Q6H RESP THERAPY PRN INH WHEEZING AND SOB Last administered on 09/21/18 18:20; Admin Dose 3 ML; Start 09/20/18 at 10:00 Diclofenac Sodium (Voltaren 1% Gel) 2 gm QID TP Last administered on 09/22/18 11:34; Admin Dose 2 GM; Start 09/20/18 at 13:00 Lorazepam (Ativan) 0.5 mg DAILY PRN PO ANXIETY Last administered on 09/21/18 17:16; Admin Dose 0.5 MG; Start 09/20/18 at 10:30 Quetiapine Fumarate (Seroquel) 100 mg HS PO Last administered on 09/21/18 20:26; Admin Dose 100 MG; Start 09/20/18 at 21:00 Apixaban (Eliquis) 5 mg BID PO Last administered on 09/21/18 20:25; Admin Dose 5 MG; Start 09/20/18 at 10:30 Tramadol HCl (Ultram) 50 mg Q6H PRN PO MODERATE PAIN LEVEL 4-6 Last administered on 09/21/18 18:00; Admin Dose 50 MG; Start 09/20/18 at 10:30 Lisinopril (Zestril) 5 mg DAILY PO Last administered on 09/21/18 09:13; Admin Dose 5 MG; Start 09/20/18 at 15:30 Metoprolol Succinate (Toprol Xl) 25 mg BID PO Last administered on 09/21/18 20:25; Admin Dose 25 MG; Start 09/20/18 at 21:00 Insulin Aspart (Novolog Insulin Pen) 4 unit WITH MEALS SC Last administered on 09/21/18 17:14; Admin Dose 4 UNIT; Start 09/21/18 at 18:00 Ondansetron HCl (Zofran Inj) 4 mg Q6H PRN IV NAUSEA AND/OR VOMITING Last administered on 09/22/18 07:53; Admin Dose 4 MG; Start 09/21/18 at 23:30 Sodium Chloride 1,000 ml @ 0 mls/hr Q0M IV Last administered on 09/22/18 04:10; Admin Dose 20 MLS/HR; Start 09/22/18 at 04:00 Metoclopramide HCl (Reglan) 10 mg Q8 PRN IV NAUSEA AND/OR VOMITING Last administered on 09/22/18 06:05; Admin Dose 10 MG; Start 09/22/18 at 04:30 Furosemide (Lasix) 40 mg BID DIURETICS IV ; Start 09/22/18 at 18:00 Morphine Sulfate (morphine) 2 mg ONCE STAT IV ; Start 09/22/18 at 12:45; Stop 09/22/18 at 12:46; Status UNV Pantoprazole (Protonix Iv) 40 mg DAILY@06 IV ; Start 09/23/18 at 06:00; Status UNV ALEKSANDRA SALCIDO MD Sep 22, 2018 12:55
[2018-09-22] MEDS: DIGOXIN 0.125 MG TAB PO SCH (13:24)
--- NOTE | 2018-09-22 13:30 | CONS ---
Assessment/Plan Assessment/Plan Hospital Course (Demo Recall) Assessment: Epigastric pain/Nausea/vomiting -PUD versus gastritis versus gastroparesis versus cannabinoid hyperemesis syndrome versus other Congestive heart failure Cardiomyopathy with ejection fraction 25% Hypertension Hyperlipidemia COPD Proximal atrial fibrillation -On Eliquis Diabetes mellitus Plan: Continue PPI therapy we will add Carafate 4 times daily to prophylactically treat for possible PUD versus gastritis We will order gastric emptying study to rule out gastroparesis and will change Reglan to every 6 hours [id number] Discussed with patient to avoid marijuana in the future. If patient's symptoms do not improve with current regimen and gastric emptying study does not yield information we will plan for upper endoscopy, We will need cardiac clearance. Prior to EGD. Patient is also on Eliquis which will need to be held if EGD is required Patient seen in collaboration with Dr. Haro CC: KOJO HARO MD ; Consultation Date/Type/Reason Admit Date/Time Sep 20, 2018 at 04:29 Date of Consultation: Sep 22, 2018 Type of Consult GI Reason for Consultation Abdominal pain Date/Time of Note DATE: 09/22/18 TIME: 13:13 Hx of Present Illness This is a 48-year-old female with past medical history of morbid obesity with a BMI of 56.2,'s congestive heart failure, COPD, diabetes, hypertension, hyperlipidemia, psychotic disorders, proximal atrial fibrillation. Who presented to the emergency department with complaints of chest pain on and off x1 week. Cardiology was consulted\, trop x1 was negative and echocardiogram was completed showing ejection fraction estimated at 25%. Patient is currently on Eliquis for proximal atrial fibrillation as well as Lasix for congestive heart failure labs obtained during hospitalization Labs show normocytic anemia previous leukocytosis which has resolved today, INR of 0.14 previous rechecked LFTs show no elevation toxicology screen on admission is positive for opioids as well as cocaine and cannabinoids. During hospitalization chest pain turned into abdominal pain associate with nausea and vomiting x2 episodes today GI has been consulted for further evaluation. At time evaluation patient continues to complain of epigastric pain with nausea and vomiting she denies overt signs of GI bleed i.e. melena, hematochezia, hematemesis. She states she has never had a previous upper endoscopy. And states that she does have poorly controlled diab etes without previous diagnosis of gastroparesis. Discussed plan to prophylactically treat for PUD we will additionally order gastric emptying study and change Reglan to [id number]. I discussed side effects of Reglan patient verbalized understanding and is agreeable to take medication. Isiah tionally discussed if symptoms do not improve patient may require EGD. If EGD is indicated we will need cardiac clearance the patient will need to procedure completed in the operating room secondary to morbid obesity. Review of Systems: A 12 system, review was conducted and is negative except as noted in the HPI or here. Past Medical History Medical History: congestive heart failure, hypertension Home Meds Active Scripts Prednisone* (Prednisone*) 10 Mg Tab, 10 MG PO DAILY for 7 Days, TAB Prov:MITA HENAO MD 07/19/18 Ergocalciferol (Vitamin D2) (VITAMIN D2) 50,000 Unit Capsule, 58660 UNIT PO Baez@09 for 28 Days, CAP Prov:MITA HENAO MD 07/19/18 Insulin Aspart* (Novolog Insulin Pen*) 100 Unit/Ml Soln, 7 UNIT SC WITH MEALS for 28 Days Prov:MITA HENAO MD 07/19/18 Polyethylene Glycol* (Miralax*) 17 Gm Powd.pack, 17 GM PO DAILY PRN for CONSTIPATION for 28 Days Prov:MITA HENAO MD 07/19/18 Docusate Sodium* (Colace*) 100 Mg Capsule, 100 MG PO Q12H for 14 Days, CAP Prov:MITA HENAO MD 07/19/18 Acetazolamide* (Acetazolamide*) 250 Mg Tablet, 250 MG PO DAILY for 10 Days, TAB Prov:MITA HENAO MD 07/19/18 Tramadol HCl (Tramadol HCl) 50 Mg Tablet, 50 MG PO Q6H PRN for MODERATE PAIN LEVEL 4-6 for 14 Days, TAB Prov:MITA HENAO MD 07/19/18 Aspirin (Aspirin) 81 Mg Chew, 81 MG PO DAILY for 28 Days, TAB Prov:MITA HENAO MD 07/19/18 Digoxin* (Digitek*) 125 Mcg Tablet, 0.125 MG PO DAILY@13 for 28 Days, TAB Prov:MITA HENAO MD 07/19/18 Apixaban* (Eliquis*) 5 Mg Tablet, 5 MG PO BID for 28 Days, TAB Prov:MITA HENAO MD 07/19/18 Ondansetron (Ondansetron Odt) 4 Mg Tab.rapdis, 4 MG PO Q6H PRN for NAUSEA AND/OR VOMITING, #10 TAB Prov:COLBY CHRIS DO 06/09/18 Auapcjxreys-D-Hugruqxuxb Hb* (Guaifenesin* DM Syrup) 120 Ml Syrup, 5 ML PO Q6H RESP THERAPY PRN for COUGH for 10 Days Prov:ALEKSANDRA SALCIDO MD 06/08/18 Ipratropium-Albuterol (Ipratropium-Albuterol) 0.5-3 Mg/3 Ml Ampul.neb, 3 ML INHALATION Q4H PRN for WHEEZING AND SOB for 10 Days, #3 VIAL Prov:ALEKSANDRA SALCIDO MD 06/08/18 Pantoprazole* (Protonix*) 40 Mg Tablet.dr, 40 MG PO DAILY for 30 Days, TAB Prov:ALEKSANDRA SALCIDO MD 04/22/18 Apixaban* (Eliquis*) 5 Mg Tablet, 5 MG PO BID for 30 Days, TAB Prov:ALEKSANDRA SALCIDO MD 04/22/18 Digoxin* (Digitek*) 125 Mcg Tablet, 0.125 MG PO DAILY@13 for 30 Days, TAB Prov:ALEKSANDRA SALCIDO MD 04/22/18 Furosemide* (Furosemide*) 40 Mg Tablet, 40 MG PO BID for 30 Days, TAB Prov:ALEKSANDRA SALCIDO MD 04/22/18 Lorazepam* (Ativan*) 0.5 Mg Tablet, 0.5 MG PO HS PRN for ANXIETY for 5 Days, #30 TAB Prov:ALEKSANDRA SALCIDO MD 04/22/18 Insulin Glargine,Hum.rec.anlog (Basaglar Kwikpen U-100) 100 Unit/1 Ml Insuln.pen, 30 UNIT SC QHS for 30 Days, EA Prov:ALEKSANDRA SALCIDO MD 04/22/18 Quetiapine Fumarate* (Seroquel*) 100 Mg Tablet, 100 MG PO DAILY, #30 TAB Prov:ALEKSANDRA SALCIDO MD 04/22/18 Metformin Hcl* (Metformin Hcl*) 1,000 Mg Tablet, 1000 MG PO WITH BREAKFAST DINNE for 30 Days, #60 TAB Prov:ALEKSANDRA SALCIDO MD 04/22/18 Docusate Sodium* (Colace*) 100 Mg Capsule, 100 MG PO Q12H for 30 Days, #60 CAP Prov:ALEKSANDRA SALCIDO MD 04/22/18 Atorvastatin Calcium (Atorvastatin Calcium) 10 Mg Tablet, 10 MG PO QHS for 30 Days, #30 TAB Prov:ALEKSANDRA SALCIDO MD 04/22/18 Ibuprofen* (Motrin*) 600 Mg Tab, 600 MG PO Q6, #30 TAB Prov:NAIN KINGSLEY PA-C 02/16/18 Reported Medications Metoprolol Succinate* (Toprol XL*) 25 Mg Tab.sr.24h, 25 MG PO BID, #30 TAB 06/02/18 Lisinopril* (Lisinopril*) 5 Mg Tablet, 5 MG PO DAILY, #30 TAB 06/02/18 Bisacodyl* (Bisacodyl*) 5 Mg Tablet.dr, 5 MG PO DAILY PRN for NEEDED, TAB 01/28/18 Medications Current Medications Diagnostic Test (Pha) (Accu-Chek) 1 ea 02 XX Last administered on 09/21/18at 02:00; Admin Dose 1 EA; Start 09/21/18 at 02:00 Insulin Glargine (Lantus) 30 units QHS SC Last administered on 09/21/18at 20:38; Admin Dose 30 UNITS; Start 09/20/18 at 21:00 Insulin Aspart (Novolog Insulin Pen) NOVOLOG *MODERATE* ALGORITHM WITH MEALS BEDTIME SC Last administered on 09/21/18 17:14; Admin Dose 4 UNIT; Start 09/20/18 at 08:00 Aspirin (Aspirin) 81 mg DAILY PO Last administered on 09/21/18at 09:12; Admin Dose 81 MG; Start 09/20/18 at 09:00 Atorvastatin Calcium (Lipitor) 10 mg QHS PO Last administered on 09/21/18 20:25; Admin Dose 10 MG; Start 09/20/18 at 21:00 Bisacodyl (Dulcolax) 5 mg DAILY PRN PO NEEDED; Start 09/20/18 at 08:30 Digoxin (Digoxin) 0.125 mg DAILY@13 PO Last administered on 09/21/18at 12:21; Admin Dose 0.125 MG; Start 09/20/18 at 13:00 Docusate Sodium (Colace) 100 mg Q12 PO Last administered on 09/21/18 20:25; Admin Dose 100 MG; Start 09/20/18 at 09:00 Guaifenesin/ Dextromethorphan (Robitussin Dm Liquid Cup) 5 ml Q6H RESP THERAPY PRN PO COUGH; Start 09/20/18 at 08:30 Ondansetron HCl (Zofran Odt) 4 mg Q6H PRN ODT NAUSEA AND/OR VOMITING Last administered on 09/21/18 23:25; Admin Dose 4 MG; Start 09/20/18 at 08:30 Diagnostic Test (Pha) (Accu-Chek) 1 ea AC MEALS AND BEDTIME XX Last administered on 09/22/18 11:33; Admin Dose 1 EA; Start 09/20/18 at 11:30 Miscellaneous Information 1 ea NOTE XX ; Start 09/20/18 at 08:30 Glucose (Glutose) 15 gm Q15M PRN PO DECREASED GLUCOSE; Start 09/20/18 at 08:30 Glucose (Glutose) 22.5 gm Q15M PRN PO DECREASED GLUCOSE; Start 09/20/18 at 08:30 Dextrose (D50w Syringe) 25 ml Q15M PRN IV DECREASED GLUCOSE; Start 09/20/18 at 08:30 Dextrose (D50w Syringe) 50 ml Q15M PRN IV DECREASED GLUCOSE; Start 09/20/18 at 08:30 Glucagon (Glucagen) 1 mg Q15M PRN IM DECREASED GLUCOSE; Start 09/20/18 at 08:30 Glucose (Glutose) 15 gm Q15M PRN BUCCAL DECREASED GLUCOSE; Start 09/20/18 at 08:30 Albuterol/ Ipratropium (Duoneb) 3 ml Q6H RESP THERAPY PRN INH WHEEZING AND SOB Last administered on 09/21/18 18:20; Admin Dose 3 ML; Start 09/20/18 at 10:00 Diclofenac Sodium (Voltaren 1% Gel) 2 gm QID TP Last administered on 09/22/18 11:34; Admin Dose 2 GM; Start 09/20/18 at 13:00 Lorazepam (Ativan) 0.5 mg DAILY PRN PO ANXIETY Last administered on 09/21/18 17 :16; Admin Dose 0.5 MG; Start 09/20/18 at 10:30 Quetiapine Fumarate (Seroquel) 100 mg HS PO Last administered on 09/21/18 20:26; Admin Dose 100 MG; Start 09/20/18 at 21:00 Apixaban (Eliquis) 5 mg BID PO Last administered on 09/21/18 20:25; Admin Dose 5 MG; Start 09/20/18 at 10:30 Tramadol HCl (Ultram) 50 mg Q6H PRN PO MODERATE PAIN LEVEL 4-6 Last administered on 09/21/18 18:00; Admin Dose 50 MG; Start 09/20/18 at 10:30 Lisinopril (Zestril) 5 mg DAILY PO Last administered on 09/21/18 09:13; Admin Dose 5 MG; Start 09/20/18 at 15:30 Metoprolol Succinate (Toprol Xl) 25 mg BID PO Last administered on 09/21/18 20:25; Admin Dose 25 MG; Start 09/20/18 at 21:00 Insulin Aspart (Novolog Insulin Pen) 4 unit WITH MEALS SC Last administered on 09/21/18 17:14; Admin Dose 4 UNIT; Start 09/21/18 at 18:00 Ondansetron HCl (Zofran Inj) 4 mg Q6H PRN IV NAUSEA AND/OR VOMITING Last administered on 09/22/18 07:53; Admin Dose 4 MG; Start 09/21/18 at 23:30 Sodium Chloride 1,000 ml @ 0 mls/hr Q0M IV Last administered on 09/22/18 04:10; Admin Dose 20 MLS/HR; Start 09/22/18 at 04:00 Metoclopramide HCl (Reglan) 10 mg Q8 PRN IV NAUSEA AND/OR VOMITING Last administered on 09/22/18 06:05; Admin Dose 10 MG; Start 09/22/18 at 04:30 Furosemide (Lasix) 40 mg BID DIURETICS IV ; Start 09/22/18 at 18:00 Pantoprazole (Protonix Iv) 40 mg DAILY@06 IV ; Start 09/23/18 at 06:00 Allergies: Coded Allergies: morphine (Verified Allergy, Mild, 06/09/18) Past Surgical History Past Surgical Hx: other (hernia surgery) Social History Alcohol Use: none Smoking Status: Current every day smoker Drug Use: other (past) Exam/Review of Systems Exam Vitals Vital Signs Date Temp Pulse Resp B/P (MAP) Pulse Ox O2 O2 Flow FiO2 Time Delivery Rate 09/22/18 98.0 81 18 121/75 98 12:27 (90) 09/22/18 Nasal 2.0 08:32 Cannula Intake and Output 09/21/18 09/21/18 09/22/18 1515:00 23:00 07:00 IntakeIntake Total 800 ml OutputOutput Total 1800 ml BalanceBalance -1000 ml Exam PHYSICAL EXAMINATION: GENERAL: Obese, alert & oriented x 3, in no acute distress SKIN: No lesions HEAD: Normocephalic, atraumatic, no tenderness. EYES: Pupils equal reactive to light and accommodation, no discharge. EARS/NOSE AND THROAT: Ears normal, nose normal. NECK: Supple, no masses. CHEST: Inspection within normal limits. CARDIOVASCULAR: Heart: Regular rate and rhythm RESPIRATORY: Lungs clear to auscultation GASTROINTESTINAL AND LIVER: Abdomen: Soft, epigastric tenderness, non-distended, no hernias, no masses, no organomegaly, no ascites, no guarding, no rebound tenderness, normoactive bowel sounds. Rectal: Deferred. EXTREMITIES: No cyanosis, clubbing or edema. Results Result Diagram: 09/22/1852509/22/18525 Results 24hrs Laboratory Tests Test 09/21/18 17:06 09/21/18 20:24 09/22/18 05:26 09/22/18 07:47 Bedside Glucose 198 166 202 White Blood Count 9.7 # Red Blood Count 4.15 L Hemoglobin 11.3 L Hematocrit 38.3 Mean Corpuscular Volume 92.3 Mean Corpuscular 27.2 L Hemoglobin Mean Corpuscular 29.5 L Hemoglobin Concent Red Cell Distribution 15.9 H Width Platelet Count 253 Mean Platelet Volume 11.5 H Immature Granulocytes % 0.400 Neutrophils % 75.2 Lymphocytes % 16.1 Monocytes % 7.2 Eosinophils % 0.6 Basophils % 0.5 Nucleated Red Blood 0.0 Cells % Immature Granulocytes # 0.040 H Neutrophils # 7.3 Lymphocytes # 1.6 Monocytes # 0.7 Eosinophils # 0.1 Basophils # 0.1 Nucleated Red Blood 0.0 Cells # Sodium Level 138 Potassium Level 5.1 Chloride Level 95 L Carbon Dioxide Level 37 H Anion Gap 6 Blood Urea Nitrogen 28 H Creatinine 0.81 Est Glomerular Filtrat > 60 Rate mL/min Glucose Level 181 Calcium Level 8.3 L Phosphorus Level 4.2 Magnesium Level 1.7 Test 09/22/18 11:33 Bedside Glucose 181 Medications Medication Current Medications Diagnostic Test (Pha) (Accu-Chek) 1 ea XX Last administered on 09/21/18 02:00; Admin Dose 1 EA; Start 09/21/18 at 02:00 Insulin Glargine (Lantus) 30 units QHS SC Last administered on 09/21/18 20:38; Admin Dose 30 UNITS; Start 09/20/18 at 21:00 Insulin Aspart (Novolog Insulin Pen) NOVOLOG *MODERATE* ALGORITHM WITH MEALS BEDTIME SC Last administered on 09/21/18 17:14; Admin Dose 4 UNIT; Start 09/20/18 at 08:00 Aspirin (Aspirin) 81 mg DAILY PO Last administered on 09/21/18 09:12; Admin Dose 81 MG; Start 09/20/18 at 09:00 Atorvastatin Calcium (Lipitor) 10 mg QHS PO Last administered on 09/21/18 20:25; Admin Dose 10 MG; Start 09/20/18 at 21:00 Bisacodyl (Dulcolax) 5 mg DAILY PRN PO NEEDED; Start 09/20/18 at 08:30 Digoxin (Digoxin) 0.125 mg DAILY@13 PO Last administered on 09/21/18 12:21; Admin Dose 0.125 MG; Start 09/20/18 at 13:00 Docusate Sodium (Colace) 100 mg Q12 PO Last administered on 09/21/18 20:25; Admin Dose 100 MG; Start 09/20/18 at 09:00 Guaifenesin/ Dextromethorphan (Robitussin Dm Liquid Cup) 5 ml Q6H RESP THERAPY PRN PO COUGH; Start 09/20/18 at 08:30 Ondansetron HCl (Zofran Odt) 4 mg Q6H PRN ODT NAUSEA AND/OR VOMITING Last adm inistered on 09/21/18 23:25; Admin Dose 4 MG; Start 09/20/18 at 08:30 Diagnostic Test (Pha) (Accu-Chek) 1 ea AC MEALS AND BEDTIME XX Last administered on 09/22/18 11:33; Admin Dose 1 EA; Start 09/20/18 at 11:30 Miscellaneous Information 1 ea NOTE XX ; Start 09/20/18 at 08:30 Glucose (Glutose) 15 gm Q15M PRN PO DECREASED GLUCOSE; Start 09/20/18 at 08:30 Glucose (Glutose) 22.5 gm Q15M PRN PO DECREASED GLUCOSE; Start 09/20/18 at 08:30 Dextrose (D50w Syringe) 25 ml Q15M PRN IV DECREASED GLUCOSE; Start 09/20/18 at 08:30 Dextrose (D50w Syringe) 50 ml Q15M PRN IV DECREASED GLUCOSE; Start 09/20/18 at 0 8:30 Glucagon (Glucagen) 1 mg Q15M PRN IM DECREASED GLUCOSE; Start 09/20/18 at 08:30 Glucose (Glutose) 15 gm Q15M PRN BUCCAL DECREASED GLUCOSE; Start 09/20/18 at 08:30 Albuterol/ Ipratropium (Duoneb) 3 ml Q6H RESP THERAPY PRN INH WHEEZING AND SOB Last administered on 09/21/18 18:20; Admin Dose 3 ML; Start 09/20/18 at 10:00 Diclofenac Sodium (Voltaren 1% Gel) 2 gm QID TP Last administered on 09/22/18 11:34; Admin Dose 2 GM; Start 09/20/18 at 13:00 Lorazepam (Ativan) 0.5 mg DAILY PRN PO ANXIETY Last administered on 09/21/18 17:16; Admin Dose 0.5 MG; Start 09/20/18 at 10:30 Quetiapine Fumarate (Seroquel) 100 mg HS PO Last administered on 09/21/18 20:26; Admin Dose 100 MG; Start 09/20/18 at 21:00 Apixaban (Eliquis) 5 mg BID PO Last administered on 09/21/18 20:25; Admin Dose 5 MG; Start 09/20/18 at 10:30 Tramadol HCl (Ultram) 50 mg Q6H PRN PO MODERATE PAIN LEVEL 4-6 Last administered on 09/21/18 18:00; Admin Dose 50 MG; Start 09/20/18 at 10:30 Lisinopril (Zestril) 5 mg DAILY PO Last administered on 09/21/18at 09:13; Admin Dose 5 MG; Start 09/20/18 at 15:30 Metoprolol Succinate (Toprol Xl) 25 mg BID PO Last administered on 09/21/18 20:25; Admin Dose 25 MG; Start 09/20/18 at 21:00 Insulin Aspart (Novolog Insulin Pen) 4 unit WITH MEALS SC Last administered on 09/21/18at 17:14; Admin Dose 4 UNIT; Start 09/21/18 at 18:00 Ondansetron HCl (Zofran Inj) 4 mg Q6H PRN IV NAUSEA AND/OR VOMITING Last administered on 09/22/18at 07:53; Admin Dose 4 MG; Start 09/21/18 at 23:30 Sodium Chloride 1,000 ml @ 0 mls/hr Q0M IV Last administered on 09/22/18at 04:10; Admin Dose 20 MLS/HR; Start 09/22/18 at 04:00 Metoclopramide HCl (Reglan) 10 mg Q8 PRN IV NAUSEA AND/OR VOMITING Last administered on 09/22/18 06:05; Admin Dose 10 MG; Start 09/22/18 at 04:30 Furosemide (Lasix) 40 mg BID DIURETICS IV ; Start 09/22/18 at 18:00 Pantoprazole (Protonix Iv) 40 mg DAILY@06 IV ; Start 09/23/18 at 06:00 JUSTICE SEQUEIRA Sep 22, 2018 13:24
[2018-09-22] MEDS: SUCRALFATE (100 MG/ML) 10ML CUP PO SCH ×2 (16:54→20:25)
[2018-09-22] MEDS: METOCLOPRAMIDE 10 MG INJ IV SCH ×2 (17:38→23:09)
[2018-09-22] MEDS: FUROSEMIDE 40 MG INJ IV SCH (17:39)
[2018-09-22] MEDS: ATORVASTATIN 10 MG TAB PO SCH (20:26)
[2018-09-22] MEDS: QUETIAPINE 100 MG TAB PO SCH (20:26)
[2018-09-22] MEDS: LORAZEPAM 0.5 MG TAB PO PRN (20:26)
[2018-09-22] MEDS: INSULIN GLARGINE [LANTus] (100 UNITS/ML) SYG SC SCH (20:54)
[2018-09-23] VITALS (8 sets, daily range): BP systolic 95–130; BP diastolic 54–82; PULSE 63–101; RESP 18–21
[2018-09-23] MEDS: traMADol 50 MG TAB PO PRN (01:39)
[2018-09-23] MEDS: ACCU-CHEK XX SCH ×4 (02:07→17:08)
[2018-09-23] MEDS: FUROSEMIDE 40 MG INJ IV SCH (05:27)
[2018-09-23] MEDS: METOCLOPRAMIDE 10 MG INJ IV SCH ×2 (05:27→11:14)
[2018-09-23] MEDS ORDERED: PANTOPRAZOLE 40 MG INJ IV SCH (06:00)
[2018-09-23] MEDS: INSULIN ASPART [NOVOLOG] 3 ML PEN SC SCH ×4 (07:42→11:13)
[2018-09-23] MEDS: METOPROLOL (XL) 25 MG TAB PO SCH (08:04)
[2018-09-23] MEDS: LISINOPRIL 5 MG TAB PO SCH (08:05)
[2018-09-23] MEDS: SUCRALFATE (100 MG/ML) 10ML CUP PO SCH ×3 (08:20→16:55)
[2018-09-23] MEDS: ASPIRIN 81 MG TAB PO SCH (08:20)
[2018-09-23] MEDS: DOCUSATE SODIUM 100 MG CAP PO SCH (08:20)
[2018-09-23] MEDS: APIXABAN 5 MG TABLET PO SCH (08:20)
[2018-09-23] MEDS: DICLOFENAC SODIUM 1% GEL 100 GM TUBE TP SCH ×3 (08:21→16:55)
--- NOTE | 2018-09-23 11:03 | PN ---
Date/Time of Note Date/Time of Note DATE: 09/23/18 TIME: 11:01 Assessment/Plan VTE Prophylaxis Risk score (from Nsg)>0 risk: 3 SCD applied (from Nsg): No SCD contraindicated: low risk/ambulating, other Pharmacological prophylaxis: apixaban Lines/Catheters IV Catheter Type (from Nrs): Peripheral IV Urinary Cath still in place: Yes Reason Cath still needed: other (indicate) (monitor output) Assessment/Plan Hospital Course Assessment: Epigastric pain/Nausea/vomiting -PUD versus gastritis versus gastroparesis versus cannabinoid hyperemesis syndrome versus other -Gastric emptying study negative for delayed rate Congestive heart failure Cardiomyopathy with ejection fraction 25% Hypertension Hyperlipidemia COPD Proximal atrial fibrillation -On Eliquis Diabetes mellitus Marijuana smoker- advised cessation Morbid obesity- BMI 56.2 Plan: Continue PPI therapy we will add Carafate 4 times daily to prophylactically treat for possible PUD versus gastritis If symptoms do not improve we will move forward with EGD, however we will need cardiac clearance. Prior to EGD.- Currently patient feels better- no plan for EGD at this time Patient is also on Eliquis which will need to be held if EGD is required Patient seen in collaboration with Dr. Haro Subjective: Course reviewed with nursing staff Patient interviewed and examined All labs, imaging and other results reviewed The patient states she is feeling much better with current regimen. Currently abdominal pain has improved, no c/o n/v Discussed plan for continues current medication regimen- with plan to change Reglan to PRN tomorrow Gastric emptying study- shows no evidence for delayed gastric emptying. Exam PHYSICAL EXAMINATION: GENERAL: Obese, alert & oriented x 3, in no acute distress SKIN: No lesions HEAD: Normocephalic, atraumatic, no tenderness. EYES: Pupils equal reactive to light and accommodation, no discharge. EARS/NOSE AND THROAT: Ears normal, nose normal. NECK: Supple, no masses. CHEST: Inspection within normal limits. CARDIOVASCULAR: Heart: Regular rate and rhythm RESPIRATORY: Lungs clear to auscultation GASTROINTESTINAL AND LIVER: Abdomen: Soft, epigastric tenderness, non-distended, no hernias, no masses, no organomegaly, no ascites, no guarding, no rebound tenderness, normoactive bowel sounds. Rectal: Deferred. EXTREMITIES: No cyanosis, clubbing or edema. Result Diagram: 09/23/18 0506 09/23/18 0506 Results 24hrs Laboratory Tests Test 09/22/18 11:33 09/22/18 16:57 09/22/18 20:25 09/23/18 02:05 Bedside Glucose 181 132 229 H 81 Test 09/23/18 05:06 09/23/18 07:40 White Blood Count 11.5 H Red Blood Count 3.86 L Hemoglobin 10.6 L Hematocrit 35.8 L Mean Corpuscular Volume 92.7 Mean Corpuscular 27.5 L Hemoglobin Mean Corpuscular 29.6 L Hemoglobin Concent Red Cell Distribution 15.6 H Width Platelet Count 236 Mean Platelet Volume 11.4 H Immature Granulocytes % 0.300 Neutrophils % 74.8 Lymphocytes % 12.0 L Monocytes % 11.8 H Eosinophils % 0.8 Basophils % 0.3 Nucleated Red Blood 0.0 Cells % Immature Granulocytes # 0.030 Neutrophils # 8.6 H Lymphocytes # 1.4 Monocytes # 1.4 H Eosinophils # 0.1 Basophils # 0.0 Nucleated Red Blood 0.0 Cells # Sodium Level 139 Potassium Level 4.0 Chloride Level 97 Carbon Dioxide Level 40 H Anion Gap 2 L Blood Urea Nitrogen 23 H Creatinine 0.71 Est Glomerular Filtrat > 60 Rate mL/min Glucose Level 69 #L Calcium Level 8.3 L Phosphorus Level 4.1 Magnesium Level 1.8 Bedside Glucose 50 L Exam/Review of Systems Exam Vitals Vital Signs Date Temp Pulse Resp B/P (MAP) Pulse Ox O2 O2 Flow FiO2 Time Delivery Rate 09/23/18 77 08:00 09/23/18 Nasal 2.0 07:59 Cannula 09/23/18 97.6 21 102/61 95 07:29 (75) Intake and Output 09/22/18 09/22/18 09/23/18 1515:00 23:00 07:00 IntakeIntake Total 660 ml 400 ml 840 ml OutputOutput Total 800 ml 1000 ml 1500 ml BalanceBalance -140 ml -600 ml -660 ml Results Results 24hrs Laboratory Tests Test 09/22/18 11:33 09/22/18 16:57 09/22/18 20:25 09/23/18 02:05 Bedside Glucose 181 132 229 H 81 Test 09/23/18 05:06 09/23/18 07:40 White Blood Count 11.5 H Red Blood Count 3.86 L Hemoglobin 10.6 L Hematocrit 35.8 L Mean Corpuscular Volume 92.7 Mean Corpuscular 27.5 L Hemoglobin Mean Corpuscular 29.6 L Hemoglobin Concent Red Cell Distribution 15.6 H Width Platelet Count 236 Mean Platelet Volume 11.4 H Immature Granulocytes % 0.300 Neutrophils % 74.8 Lymphocytes % 12.0 L Monocytes % 11.8 H Eosinophils % 0.8 Basophils % 0.3 Nucleated Red Blood 0.0 Cells % Immature Granulocytes # 0.030 Neutrophils # 8.6 H Lymphocytes # 1.4 Monocytes # 1.4 H Eosinophils # 0.1 Basophils # 0.0 Nucleated Red Blood 0.0 Cells # Sodium Level 139 Potassium Level 4.0 Chloride Level 97 Carbon Dioxide Level 40 H Anion Gap 2 L Blood Urea Nitrogen 23 H Creatinine 0.71 Est Glomerular Filtrat > 60 Rate mL/min Glucose Level 69 #L Calcium Level 8.3 L Phosphorus Level 4.1 Magnesium Level 1.8 Bedside Glucose 50 L Medications Medication Current Medications Diagnostic Test (Pha) (Accu-Chek) 1 ea 02 XX Last administered on 09/23/18 02:07; Admin Dose 1 EA; Start 09/21/18 at 02:00 Insulin Glargine (Lantus) 30 units QHS SC Last administered on 09/22/18 20:54; Admin Dose 30 UNITS; Start 09/20/18 at 21:00 Insulin Aspart (Novolog Insulin Pen) NOVOLOG *MODERATE* ALGORITHM WITH MEALS BEDTIME SC Last administered on 09/22/18 20:54; Admin Dose 2 UNIT; Start 09/20/18 at 08:00 Aspirin (Aspirin) 81 mg DAILY PO Last administered on 09/23/18 08:20; Admin Dose 81 MG; Start 09/20/18 at 09:00 Atorvastatin Calcium (Lipitor) 10 mg QHS PO Last administered on 09/22/18 20:26; Admin Dose 10 MG; Start 09/20/18 at 21:00 Bisacodyl (Dulcolax) 5 mg DAILY PRN PO NEEDED; Start 09/20/18 at 08:30 Digoxin (Digoxin) 0.125 mg DAILY@13 PO Last administered on 09/22/18 13:24; Admin Dose 0.125 MG; Start 09/20/18 at 13:00 Docusate Sodium (Colace) 100 mg Q12 PO Last administered on 09/23/18 08:20; Admin Dose 100 MG; Start 09/20/18 at 09:00 Guaifenesin/ Dextromethorphan (Robitussin Dm Liquid Cup) 5 ml Q6H RESP THERAPY PRN PO COUGH; Start 09/20/18 at 08:30 Ondansetron HCl (Zofran Odt) 4 mg Q6H PRN ODT NAUSEA AND/OR VOMITING Last administered on 09/21/18 23:25; Admin Dose 4 MG; Start 09/20/18 at 08:30 Diagnostic Test (Pha) (Accu-Chek) 1 ea AC MEALS AND BEDTIME XX Last administered on 09/22/18 21:03; Admin Dose 1 EA; Start 09/20/18 at 11:30 Miscellaneous Information 1 ea NOTE XX ; Start 09/20/18 at 08:30 Glucose (Glutose) 15 gm Q15M PRN PO DECREASED GLUCOSE; Start 09/20/18 at 08:30 Glucose (Glutose) 22.5 gm Q15M PRN PO DECREASED GLUCOSE; Start 09/20/18 at 08:30 Dextrose (D50w Syringe) 25 ml Q15M PRN IV DECREASED GLUCOSE; Start 09/20/18 at 08:30 Dextrose (D50w Syringe) 50 ml Q15M PRN IV DECREASED GLUCOSE; Start 09/20/18 at 08:30 Glucagon (Glucagen) 1 mg Q15M PRN IM DECREASED GLUCOSE; Start 09/20/18 at 08:30 Glucose (Glutose) 15 gm Q15M PRN BUCCAL DECREASED GLUCOSE; Start 09/20/18 at 08:30 Albuterol/ Ipratropium (Duoneb) 3 ml Q6H RESP THERAPY PRN INH WHEEZING AND SOB Last administered on 09/21/18 18:20; Admin Dose 3 ML; Start 09/20/18 at 10:00 Diclofenac Sodium (Voltaren 1% Gel) 2 gm QID TP Last administered on 09/23/18 08:21; Admin Dose 2 GM; Start 09/20/18 at 13:00 Lorazepam (Ativan) 0.5 mg DAILY PRN PO ANXIETY Last administered on 09/22/18 20:26; Admin Dose 0.5 MG; Start 09/20/18 at 10:30 Quetiapine Fumarate (Seroquel) 100 mg HS PO Last administered on 09/22/18 20:26; Admin Dose 100 MG; Start 09/20/18 at 21:00 Apixaban (Eliquis) 5 mg BID PO Last administered on 09/23/18 08:20; Admin Dose 5 MG; Start 09/20/18 at 10:30 Tramadol HCl (Ultram) 50 mg Q6H PRN PO MODERATE PAIN LEVEL 4-6 Last administered on 09/23/18 01:39; Admin Dose 50 MG; Start 09/20/18 at 10:30 Lisinopril (Zestril) 5 mg DAILY PO Last administered on 09/21/18 09:13; Admin Dose 5 MG; Start 09/20/18 at 15:30 Metoprolol Succinate (Toprol Xl) 25 mg BID PO Last administered on 09/22/18 20:26; Admin Dose 25 MG; Start 09/20/18 at 21:00 Insulin Aspart (Novolog Insulin Pen) 4 unit WITH MEALS SC Last administered on 09/22/18 17:45; Admin Dose 4 UNIT; Start 09/21/18 at 18:00 Ondansetron HCl (Zofran Inj) 4 mg Q6H PRN IV NAUSEA AND/OR VOMITING Last administered on 09/22/18 20:26; Admin Dose 4 MG; Start 09/21/18 at 23:30 Furosemide (Lasix) 40 mg BID DIURETICS IV Last administered on 09/23/18 05:27; Admin Dose 40 MG; Start 09/22/18 at 18:00 Pantoprazole (Protonix Iv) 40 mg DAILY@06 IV Last administered on 09/23/18 05:27; Admin Dose 40 MG; Start 09/23/18 at 06:00 Metoclopramide HCl (Reglan) 10 mg Q6 IV Last administered on 09/23/18 05:27; Admin Dose 10 MG; Start 09/22/18 at 18:00 Sucralfate (Carafate Susp) 1 gm QID PO Last administered on 09/23/18 08:20; Admin Dose 1 GM; Start 09/22/18 at 17:00 JUSTICE SEQUEIRA Sep 23, 2018 11:03
[2018-09-23] MEDS: DIGOXIN 0.125 MG TAB PO SCH (12:21)
--- NOTE | 2018-09-23 12:57 | CONS ---
Assessment/Plan Assessment/Plan Hospital Course (Demo Recall) IMP: 1.CHF-systolic acute on chronic 2.Cardiomyopathy-EF 25-30 by echo 04/07. Nonischemic by cath 3.HTN 4.HL 5.COPD 6. H/O PAF on eliquis 7.DM Recc: -Tele -serial ecg's -Continue eliquis -Continue lasix diuresis but would make BID and follow volume status clsoely with probable change to PO lasix -Contineu bronchodilators -Continue statin -Continue digoxin -Continue psych meds -Follow BS closely Consultation Date/Type/Reason Admit Date/Time Sep 20, 2018 at 04:29 Initial Consult Date 09/20/18 Type of Consult Cardiology Reason for Consultation CHF Requesting Provider: ROMAINE URENA MD Date/Time of Note DATE: 09/23/18 TIME: 12:53 Exam/Review of Systems Vital Signs Vitals Vital Signs Date Temp Pulse Resp B/P (MAP) Pulse Ox O2 O2 Flow FiO2 Time Delivery Rate 09/23/18 91 12:00 09/23/18 98.1 21 130/82 92 Room Air 11:30 (98) 09/23/18 2.0 07:59 Intake and Output 09/22/18 09/22/18 09/23/18 1515:00 23:00 07:00 IntakeIntake Total 660 ml 400 ml 840 ml OutputOutput Total 800 ml 1000 ml 1500 ml BalanceBalance -140 ml -600 ml -660 ml Exam Exam Review of Systems: CONSTITUTIONAL: No fevers, chills. PULMONARY: No sob CARDIOVASCULAR: No chest pain/palpitations GASTROINTESTINAL: No nausea/vomiting. GENITOURINARY: No hematuria/dysuria. MUSCULOSKELETAL: No myagias/arthalgias. PSYCHIATRIC: The patient denies depression. NEUROLOGIC: No weakness Constitutional: alert Psych: no complaints Head: normocephalic ENMT: mucosa pink and moist Neck: supple, jvd (9 cm water) Cardiovascular: regular rate and rhythm Gastrointestinal: soft, non-tender Musculoskeletal: muscle tone (normal) Extremities: edema (none) Neurological: other (No focal deficits) Labs Result Diagram: 09/23/18 0506 09/23/18 0506 Results 24hrs Laboratory Tests Test 09/22/18 16:57 09/22/18 20:25 09/23/18 02:05 09/23/18 05:06 Bedside Glucose 132 229 H 81 White Blood Count 11.5 H Red Blood Count 3.86 L Hemoglobin 10.6 L Hematocrit 35.8 L Mean Corpuscular Volume 92.7 Mean Corpuscular 27.5 L Hemoglobin Mean Corpuscular 29.6 L Hemoglobin Concent Red Cell Distribution 15.6 H Width Platelet Count 236 Mean Platelet Volume 11.4 H Immature Granulocytes % 0.300 Neutrophils % 74.8 Lymphocytes % 12.0 L Monocytes % 11.8 H Eosinophils % 0.8 Basophils % 0.3 Nucleated Red Blood 0.0 Cells % Immature Granulocytes # 0.030 Neutrophils # 8.6 H Lymphocytes # 1.4 Monocytes # 1.4 H Eosinophils # 0.1 Basophils # 0.0 Nucleated Red Blood 0.0 Cells # Sodium Level 139 Potassium Level 4.0 Chloride Level 97 Carbon Dioxide Level 40 H Anion Gap 2 L Blood Urea Nitrogen 23 H Creatinine 0.71 Est Glomerular Filtrat > 60 Rate mL/min Glucose Level 69 #L Calcium Level 8.3 L Phosphorus Level 4.1 Magnesium Level 1.8 Test 09/23/18 07:40 09/23/18 11:12 Bedside Glucose 50 L 92 Medications Medications Current Medications Diagnostic Test (Pha) (Accu-Chek) 1 ea 02 XX Last administered on 09/23/18at 02:07; Admin Dose 1 EA; Start 09/21/18 at 02:00 Insulin Glargine (Lantus) 30 units QHS SC Last administered on 09/22/18 20:54; Admin Dose 30 UNITS; Start 09/20/18 at 21:00 Insulin Aspart (Novolog Insulin Pen) NOVOLOG *MODERATE* ALGORITHM WITH MEALS BEDTIME SC Last administered on 09/22/18 20:54; Admin Dose 2 UNIT; Start 09/20/18 at 08:00 Aspirin (Aspirin) 81 mg DAILY PO Last administered on 09/23/18 08:20; Admin Dose 81 MG; Start 09/20/18 at 09:00 Atorvastatin Calcium (Lipitor) 10 mg QHS PO Last administered on 09/22/18 20:26; Admin Dose 10 MG; Start 09/20/18 at 21:00 Bisacodyl (Dulcolax) 5 mg DAILY PRN PO NEEDED; Start 09/20/18 at 08:30 Digoxin (Digoxin) 0.125 mg DAILY@13 PO Last administered on 09/23/18 12:21; Admin Dose 0.125 MG; Start 09/20/18 at 13:00 Docusate Sodium (Colace) 100 mg Q12 PO Last administered on 09/23/18 08:20; Admin Dose 100 MG; Start 09/20/18 at 09:00 Guaifenesin/ Dextromethorphan (Robitussin Dm Liquid Cup) 5 ml Q6H RESP THERAPY PRN PO COUGH; Start 09/20/18 at 08:30 Ondansetron HCl (Zofran Odt) 4 mg Q6H PRN ODT NAUSEA AND/OR VOMITING Last administered on 09/21/18 23:25; Admin Dose 4 MG; Start 09/20/18 at 08:30 Diagnostic Test (Pha) (Accu-Chek) 1 ea AC MEALS AND BEDTIME XX Last administered on 09/23/18 11:12; Admin Dose 1 EA; Start 09/20/18 at 11:30 Miscellaneous Information 1 ea NOTE XX ; Start 09/20/18 at 08:30 Glucose (Glutose) 15 gm Q15M PRN PO DECREASED GLUCOSE; Start 09/20/18 at 08:30 Glucose (Glutose) 22.5 gm Q15M PRN PO DECREASED GLUCOSE; Start 09/20/18 at 08:30 Dextrose (D50w Syringe) 25 ml Q15M PRN IV DECREASED GLUCOSE; Start 09/20/18 at 08:30 Dextrose (D50w Syringe) 50 ml Q15M PRN IV DECREASED GLUCOSE; Start 09/20/18 at 08:30 Glucagon (Glucagen) 1 mg Q15M PRN IM DECREASED GLUCOSE; Start 09/20/18 at 08:30 Glucose (Glutose) 15 gm Q15M PRN BUCCAL DECREASED GLUCOSE; Start 09/20/18 at 08:30 Albuterol/ Ipratropium (Duoneb) 3 ml Q6H RESP THERAPY PRN INH WHEEZING AND SOB Last administered on 09/21/18 18:20; Admin Dose 3 ML; Start 09/20/18 at 10:00 Diclofenac Sodium (Voltaren 1% Gel) 2 gm QID TP Last administered on 09/23/18 12:22; Admin Dose 2 GM; Start 09/20/18 at 13:00 Lorazepam (Ativan) 0.5 mg DAILY PRN PO ANXIETY Last administered on 09/22/18 20:26; Admin Dose 0.5 MG; Start 09/20/18 at 10:30 Quetiapine Fumarate (Seroquel) 100 mg HS PO Last administered on 09/22/18 20:26; Admin Dose 100 MG; Start 09/20/18 at 21:00 Apixaban (Eliquis) 5 mg BID PO Last administered on 09/23/18 08:20; Admin Dose 5 MG; Start 09/20/18 at 10:30 Tramadol HCl (Ultram) 50 mg Q6H PRN PO MODERATE PAIN LEVEL 4-6 Last administered on 09/23/18 01:39; Admin Dose 50 MG; Start 09/20/18 at 10:30 Lisinopril (Zestril) 5 mg DAILY PO Last administered on 09/21/18 09:13; Admin Dose 5 MG; Start 09/20/18 at 15:30 Metoprolol Succinate (Toprol Xl) 25 mg BID PO Last administered on 09/22/18 20:26; Admin Dose 25 MG; Start 09/20/18 at 21:00 Insulin Aspart (Novolog Insulin Pen) 4 unit WITH MEALS SC Last administered on 09/22/18 17:45; Admin Dose 4 UNIT; Start 09/21/18 at 18:00 Ondansetron HCl (Zofran Inj) 4 mg Q6H PRN IV NAUSEA AND/OR VOMITING Last administered on 09/22/18 20:26; Admin Dose 4 MG; Start 09/21/18 at 23:30 Furosemide (Lasix) 40 mg BID DIURETICS IV Last administered on 09/23/18 05:27; Admin Dose 40 MG; Start 09/22/18 at 18:00 Pantoprazole (Protonix Iv) 40 mg DAILY@06 IV Last administered on 09/23/18 05:27; Admin Dose 40 MG; Start 09/23/18 at 06:00 Metoclopramide HCl (Reglan) 10 mg Q6 IV Last administered on 09/23/18 11:14; Admin Dose 10 MG; Start 09/22/18 at 18:00 Sucralfate (Carafate Susp) 1 gm QID PO Last administered on 6/5/19at 12:21; Admin Dose 1 GM; Start 09/22/18 at 17:00 GAGAN GARCIA Sep 23, 2018 12:57
--- NOTE | 2018-09-23 14:27 | PN ---
Date/Time of Note Date/Time of Note DATE: 09/23/18 TIME: 14:26 Assessment/Plan VTE Prophylaxis Risk score (from Ns)>0 risk: 3 SCD applied (from [facility] [place] No SCD contraindicated: low risk/ambulating Pharmacological prophylaxis: NA/contraindicated Pharm contraindication: low risk/ambulating Lines/Catheters IV [facility] Type (from [facility] Peripheral IV Urinary Cath still in place: Yes Reason Cath still needed: urinary retention Assessment/Plan Assessment/Plan #. Chest pain/pressure type, r/o coronary syndrome neg cath before no ACS #. S.p incomplete fall, pain in right knee. Difficulties walking. X ray showed: Mild degenerative changes of the right knee, more pronounced in the lateral compartment. # .CHF-systolic acute on chronic with weight gain, edema #Cardiomyopathy-EF 25-30 by echo 04/07. Nonischemic by cath # Hypertension. # Hyperlipidemia. #. Normocytic hypochromic anemia #. Chronic hypercarbic respiratory failure, on BIPAP at home. #. Uncontrolled diabetes # Morbid obesity. #. Abdominal wall hernia, s/p surgery. #. History of metabolic alkalosis. #. History of chronic atrial fibrillation. # Drug use +cocaine # Vommiting/epigastric pain ? GERD// Gastritis/ bowel obstruction Assessment/Plan - symtoms resolved - cw lasix to 40 bid - fluid restriction - cw ASA/MTP/Lissopril/digoxin - iv toradol, avoid narcotics - dec lantus if NPO - PT eval - fu cardiac recs -chest x-ray showed: Moderate cardiomegaly with pulmonary vascular congestion.. -DVT proph. Eliquiz BID - GI proph. protonix dc planning with PT Result Diagram: 09/23/18 0506 09/23/18 0506 Results 24hrs Laboratory Tests Test 09/22/18 16:57 09/22/18 20:25 09/23/18 02:05 09/23/18 05:06 Bedside Glucose 132 229 H 81 White Blood Count 11.5 H Red Blood Count 3.86 L Hemoglobin 10.6 L Hematocrit 35.8 L Mean Corpuscular Volume 92.7 Mean Corpuscular 27.5 L Hemoglobin Mean Corpuscular 29.6 L Hemoglobin Concent Red Cell Distribution 15.6 H Width Platelet Count 236 Mean Platelet Volume 11.4 H Immature Granulocytes % 0.300 Neutrophils % 74.8 Lymphocytes % 12.0 L Monocytes % 11.8 H Eosinophils % 0.8 Basophils % 0.3 Nucleated Red Blood 0.0 Cells % Immature Granulocytes # 0.030 Neutrophils # 8.6 H Lymphocytes # 1.4 Monocytes # 1.4 H Eosinophils # 0.1 Basophils # 0.0 Nucleated Red Blood 0.0 Cells # Sodium Level 139 Potassium Level 4.0 Chloride Level 97 Carbon Dioxide Level 40 H Anion Gap 2 L Blood Urea Nitrogen 23 H Creatinine 0.71 Est Glomerular Filtrat > 60 Rate mL/min Glucose Level 69 #L Calcium Level 8.3 L Phosphorus Level 4.1 Magnesium Level 1.8 Test 09/23/18 07:40 09/23/18 11:12 Bedside Glucose 50 L 92 Subjective 24 Hr Interval Summary Free Text/Dictation feels better today nausea/vommiting resolved Exam/Review of Systems Exam Vitals Vital Signs Date Temp Pulse Resp B/P (MAP) Pulse Ox O2 O2 Flow FiO2 Time Delivery Rate 09/23/18 91 12:00 09/23/18 98.1 21 130/82 92 Room Air 11:30 (98) 09/23/18 2.0 07:59 Intake and Output 09/22/18 09/22/18 09/23/18 1515:00 23:00 07:00 IntakeIntake Total 660 ml 400 ml 840 ml OutputOutput Total 800 ml 1000 ml 1500 ml BalanceBalance -140 ml -600 ml -660 ml Results Results 24hrs Laboratory Tests Test 09/22/18 16:57 09/22/18 20:25 09/23/18 02:05 09/23/18 05:06 Bedside Glucose 132 229 H 81 White Blood Count 11.5 H Red Blood Count 3.86 L Hemoglobin 10.6 L Hematocrit 35.8 L Mean Corpuscular Volume 92.7 Mean Corpuscular 27.5 L Hemoglobin Mean Corpuscular 29.6 L Hemoglobin Concent Red Cell Distribution 15.6 H Width Platelet Count 236 Mean Platelet Volume 11.4 H Immature Granulocytes % 0.300 Neutrophils % 74.8 Lymphocytes % 12.0 L Monocytes % 11.8 H Eosinophils % 0.8 Basophils % 0.3 Nucleated Red Blood 0.0 Cells % Immature Granulocytes # 0.030 Neutrophils # 8.6 H Lymphocytes # 1.4 Monocytes # 1.4 H Eosinophils # 0.1 Basophils # 0.0 Nucleated Red Blood 0.0 Cells # Sodium Level 139 Potassium Level 4.0 Chloride Level 97 Carbon Dioxide Level 40 H Anion Gap 2 L Blood Urea Nitrogen 23 H Creatinine 0.71 Est Glomerular Filtrat > 60 Rate mL/min Glucose Level 69 #L Calcium Level 8.3 L Phosphorus Level 4.1 Magnesium Level 1.8 Test 09/23/18 07:40 09/23/18 11:12 Bedside Glucose 50 L 92 Medications Medication Current Medications Diagnostic Test (Pha) (Accu-Chek) 1 ea 02 XX Last administered on 09/23/18 02:07; Admin Dose 1 EA; Start 09/21/18 at 02:00 Insulin Glargine (Lantus) 30 units QHS SC Last administered on 09/22/18 20:54; Admin Dose 30 UNITS; Start 09/20/18 at 21:00 Insulin Aspart (Novolog Insulin Pen) NOVOLOG *MODERATE* ALGORITHM WITH MEALS BEDTIME SC Last administered on 09/22/18 20:54; Admin Dose 2 UNIT; Start 9 at 08:00 Aspirin (Aspirin) 81 mg DAILY PO Last administered on 09/23/18 08:20; Admin Dose 81 MG; Start 09/20/18 at 09:00 Atorvastatin Calcium (Lipitor) 10 mg QHS PO Last administered on 09/22/18 20 :26; Admin Dose 10 MG; Start 09/20/18 at 21:00 Bisacodyl (Dulcolax) 5 mg DAILY PRN PO NEEDED; Start 09/20/18 at 08:30 Digoxin (Digoxin) 0.125 mg DAILY@13 PO Last administered on 09/23/18 12:21; Adm in Dose 0.125 MG; Start 09/20/18 at 13:00 Docusate Sodium (Colace) 100 mg Q12 PO Last administered on 09/23/18 08:20; Admin Dose 100 MG; Start 09/20/18 at 09:00 Guaifenesin/ Dextromethorphan (Robitussin Dm Liquid Cup) 5 ml Q6H RESP THERAPY PRN PO COUGH; Start 09/20/18 at 08:30 Ondansetron HCl (Zofran Odt) 4 mg Q6H PRN ODT NAUSEA AND/OR VOMITING Last administered on 09/21/18 23:25; Admin Dose 4 MG; Start 09/20/18 at 08:30 Diagnostic Test (Pha) (Accu-Chek) 1 ea AC MEALS AND BEDTIME XX Last admini stered on 09/23/18 11:12; Admin Dose 1 EA; Start 09/20/18 at 11:30 Miscellaneous Information 1 ea NOTE XX ; Start 09/20/18 at 08:30 Glucose (Glutose) 15 gm Q15M PRN PO DECREASED GLUCOSE; Start 09/20/18 at 08:30 Glucose (Glutose) 22.5 gm Q15M PRN PO DECREASED GLUCOSE; Start 09/20/18 at 08:30 Dextrose (D50w Syringe) 25 ml Q15M PRN IV DECREASED GLUCOSE; Start 09/20/18 at 08:30 Dextrose (D50w Syringe) 50 ml Q15M PRN IV DECREASED GLUCOSE; Start 09/20/18 at 08:30 Glucagon (Glucagen) 1 mg Q15M PRN IM DECREASED GLUCOSE; Start 09/20/18 at 08:30 Glucose (Glutose) 15 gm Q15M PRN BUCCAL DECREASED GLUCOSE; Start 09/20/18 at 08:30 Albuterol/ Ipratropium (Duoneb) 3 ml Q6H RESP THERAPY PRN INH WHEEZING AND SOB Last administered on 09/21/18 18:20; Admin Dose 3 ML; Start 09/20/18 at 10:00 Diclofenac Sodium (Voltaren 1% Gel) 2 gm QID TP Last administered on 09/23/18 12:22; Admin Dose 2 GM; Start 09/20/18 at 13:00 Lorazepam (Ativan) 0.5 mg DAILY PRN PO ANXIETY Last administered on 09/22/18 20:26; Admin Dose 0.5 MG; Start 09/20/18 at 10:30 Quetiapine Fumarate (Seroquel) 100 mg HS PO Last administered on 09/22/18 20:26; Admin Dose 100 MG; Start 09/20/18 at 21:00 Apixaban (Eliquis) 5 mg BID PO Last administered on 09/23/18 08:20; Admin Dose 5 MG; Start 09/20/18 at 10:30 Tramadol HCl (Ultram) 50 mg Q6H PRN PO MODERATE PAIN LEVEL 4-6 Last administered on 09/23/18 01:39; Admin Dose 50 MG; Start 09/20/18 at 10:30 Lisinopril (Zestril) 5 mg DAILY PO Last administered on 09/21/18 09:13; Admin Dose 5 MG; Start 09/20/18 at 15:30 Metoprolol Succinate (Toprol Xl) 25 mg BID PO Last administered on 09/22/18 20 :26; Admin Dose 25 MG; Start 09/20/18 at 21:00 Insulin Aspart (Novolog Insulin Pen) 4 unit WITH MEALS SC Last administered on 09/22/18 17:45; Admin Dose 4 UNIT; Start 09/21/18 at 18:00 Ondansetron HCl (Zofran Inj) 4 mg Q6H PRN IV NAUSEA AND/OR VOMITING Last administered on 09/22/18 20:26; Admin Dose 4 MG; Start 09/21/18 at 23:30 Furosemide (Lasix) 40 mg BID DIURETICS IV Last administered on 09/23/18 05:27; Admin Dose 40 MG; Start 09/22/18 at 18:00 Pantoprazole (Protonix Iv) 40 mg DAILY@06 IV Last administered on 09/23/18 05:27; Admin Dose 40 MG; Start 09/23/18 at 06:00 Metoclopramide HCl (Reglan) 10 mg Q6 IV Last administered on 09/23/18 11:14; Admin Dose 10 MG; Start 09/22/18 at 18:00 Sucralfate (Carafate Susp) 1 gm QID PO Last administered on 09/23/18 12:21; Admin Dose 1 GM; Start 09/22/18 at 17:00 ALEKSANDRA SALCIDO MD Sep 23, 2018 14:27
--- NOTE | 2018-09-23 14:28 | PDOCDIS ---
Discharge Instructions DIAGNOSIS Discharge Diagnosis KNEE PAIN CP RESOLVED CHF CONDITION [id number] Patient Condition: [id number] Fair HOME CARE INSTRUCTIONS: [id number] Diet Instructions: [id number] Reduced Calorie ACTIVITY: [id number] Activity Restrictions: [id number] Slowly Increase Activity Rest between Activity Avoid heavy lifting FOLLOW UP/APPOINTMENTS Follow-up Plan FU PCP in 1-2 weeks fu cards in 2-3 weeks fu ortho in 2-3 weeks no drugs plz salt and water restrcition ALEKSANDRA SALCIDO MD Sep 23, 2018 14:28
[2018-09-23] MEDS ORDERED: CARAS PO (14:30)
[2018-09-23] MEDS ORDERED: PANT40TA3 PO (14:30)
== END 2018-09-23 17:10 | disposition home health service (06) | DRG 313 ==
LOC: E/R 03:23 → 6WM 04:29
PROVIDERS: ADMIT Internal Medicine Nephrology; ATTEND Internal Medicine Nephrology
DX: R07.9 Chest pain, unspecified (principal); I50.23 Acute on chronic systolic (congestive) heart failure; Z68.43 Body mass index [BMI] 50.0-59.9, adult; J96.12 Chronic respiratory failure with hypercapnia; D68.69 Other thrombophilia; F14.229 Cocaine dependence with intoxication, unspecified; I42.9 Cardiomyopathy, unspecified; I11.0 Hypertensive heart disease with heart failure; J44.9 Chronic obstructive pulmonary disease, unspecified; E66.01 Morbid (severe) obesity due to excess calories; E78.5 Hyperlipidemia, unspecified; E11.65 Type 2 diabetes mellitus with hyperglycemia; Z99.81 Dependence on supplemental oxygen; D64.9 Anemia, unspecified; W19.XXXA Unspecified fall, initial encounter; M17.11 Unilateral primary osteoarthritis, right knee; I48.0 Paroxysmal atrial fibrillation; Z91.14 Patient's other noncompliance with medication regimen; Z72.0 Tobacco use; Z79.02 Long term (current) use of antithrombotics/antiplatelets; R11.2 Nausea with vomiting, unspecified; R10.13 Epigastric pain; M25.561 Pain in right knee; K27.9 Peptic ulcer, site unspecified, unspecified as acute or chronic, without hemorrhage or perforation; K29.70 Gastritis, unspecified, without bleeding
CPT/HCPCS: 36415; 71045; 73562; 74018; 76705; 78264; 80048; 80053; 80307; 82803; 82962; 83036; 83690; 83735; 83880; 84100; 84484; 85025; 85610; 85730; 93005; 93306; 93970; 94640; 94664; 96374; 96375; A9541; C9113; J1815; J1885; J1940; J2270; J2405; J2765; J2930

== ENCOUNTER 2018-12-28 12:31 | Inpatient (IN) | payer BC ==
[~2018-12-28] VITALS: Ht 154.9 cm; Wt 140.4 kg
[~2018-12-28 12:31] MED LIST changes: -ACET250T22 PO; +ALBU8.5H8 INH; +ASPI81TA52 PO; +CARAS PO; +DIGO125T93 PO; +DOCU-159 PO; +HYDR-3980 PO; +IPRA3AMP29 HHN; +LEVEM; +METO-448 PO; +PANT40TA4 PO; -PRED10TA PO; +SUCR1TAB35 PO
[2018-12-28 15:48] VITALS: Ht 154.9 cm; Wt 140.4 kg
[2018-12-28] MEDS ORDERED: NACL 0.9% 3 ML SYG IV SCH (17:30)
[2018-12-28] MEDS ORDERED: DOCUSATE SODIUM 100 MG CAP PO PRN (17:30)
[2018-12-28] MEDS ORDERED: ACETAMINOPHEN 325 MG TAB PO PRN (17:30)
[2018-12-28] MEDS ORDERED: GLUCAGON 1 MG INJ IM PRN (18:00)
[2018-12-28] MEDS ORDERED: GLUCOSE GEL 15 GRAM TUBE BUCCAL PRN (18:00)
[2018-12-28] MEDS ORDERED: GLUCOSE GEL 15 GRAM TUBE PO PRN ×2 (18:00)
[2018-12-28] MEDS ORDERED: DEXTROSE 50% 50 ML SYRINGE IV PRN ×2 (18:00)
[2018-12-28] MEDS: SUCRALFATE (100 MG/ML) 10ML CUP PO SCH ×2 (18:08→20:49)
[2018-12-28] MEDS: FUROSEMIDE 40 MG INJ IV SCH (18:09)
[2018-12-28] MEDS: INSULIN ASPART [NOVOLOG] 3 ML PEN SC SCH ×3 (18:11→20:49)
[2018-12-28 19:55] VITALS: BP 119/60; PULSE 78; RESP 18
[2018-12-28] MEDS ORDERED: PENDING SANTYL ORDER FOR WOUND CARE XX PRN (20:00)
[2018-12-28] MEDS ORDERED: ZOLPIDEM 5 MG TAB PO PRN (20:00)
[2018-12-28] MEDS ORDERED: LORAZEPAM 0.5 MG TAB PO PRN (20:00)
[2018-12-28] MEDS: ATORVASTATIN 10 MG TAB PO SCH (20:49)
[2018-12-28] MEDS: APIXABAN 5 MG TABLET PO SCH (20:49)
[2018-12-28] MEDS: INSULIN GLARGINE [LANTus] (100 UNITS/ML) SYG SC SCH (20:55)
[2018-12-29] MEDS: ACCU-CHEK XX SCH (01:30)
[2018-12-29 02:16] VITALS: BP 131/67; PULSE 69; RESP 18
[2018-12-29] MEDS: PANTOPRAZOLE (EC) 40 MG TAB PO SCH ×2 (06:00→06:03)
[2018-12-29] MEDS: FUROSEMIDE 40 MG INJ IV SCH ×2 (06:03→17:32)
[2018-12-29] MEDS: INSULIN ASPART [NOVOLOG] 3 ML PEN SC SCH ×7 (08:10→21:00)
[2018-12-29 08:27] VITALS: BP 121/77; PULSE 72; RESP 20
[2018-12-29] MEDS: SUCRALFATE (100 MG/ML) 10ML CUP PO SCH ×4 (08:33→20:58)
[2018-12-29] MEDS: ONDANSETRON 4 MG INJ IV PRN ×2 (08:33→21:22)
[2018-12-29] MEDS: QUETIAPINE 100 MG TAB PO SCH (08:34)
[2018-12-29] MEDS: APIXABAN 5 MG TABLET PO SCH ×2 (08:34→20:58)
[2018-12-29] MEDS: ASPIRIN 81 MG TAB PO SCH (08:34)
[2018-12-29] MEDS: LISINOPRIL 5 MG TAB PO SCH (08:35)
[2018-12-29] MEDS ORDERED: KETOROLAC 15 MG INJ IV PRN (12:30)
[2018-12-29] MEDS ORDERED: IOHEXOL 300MG/ML 150 ML BTL ONE ×2 (12:40→12:59)
[2018-12-29] MEDS: DIGOXIN 0.125 MG TAB PO SCH (13:51)
[2018-12-29 14:09] VITALS: BP 121/77; PULSE 72; RESP 20
[2018-12-29] MEDS ORDERED: morphine 2 MG INJ IV STA (14:56)
[2018-12-29] MEDS ORDERED: HYDROmorphONE 0.5 MG/0.5 ML SYG IV STA (15:11)
[2018-12-29] MEDS ORDERED: ALBUTEROL/IPRATROPIUM (NEB) 3 ML AMP ONE (15:20)
[2018-12-29] MEDS: ALBUTEROL/IPRATROPIUM (NEB) 3 ML AMP HHN SCH ×2 (15:23→21:04)
[2018-12-29] MEDS ORDERED: morphine 2 MG INJ IV PRN (15:30)
[2018-12-29] MEDS: DEXTROSE 5%-0.45% NACL 500 ML IV SCH (15:58)
[2018-12-29] MEDS: PANTOPRAZOLE 40 MG INJ IV SCH (17:32)
[2018-12-29] MEDS: PIPER-TAZO 3.375 GM IV (PMX) 100 ML IVPB SCH (17:33)
[2018-12-29 20:00] VITALS: BP 123/76; PULSE 64; RESP 17
[2018-12-29] MEDS: ATORVASTATIN 10 MG TAB PO SCH (20:58)
[2018-12-29] MEDS: INSULIN GLARGINE [LANTus] (100 UNITS/ML) SYG SC SCH (21:00)
[2018-12-30] MEDS: ALBUTEROL/IPRATROPIUM (NEB) 3 ML AMP HHN SCH ×5 (01:10→18:28)
[2018-12-30] MEDS: HYDROmorphONE 0.5 MG/0.5 ML SYG IV PRN ×3 (01:30→17:57)
[2018-12-30] MEDS: PIPER-TAZO 3.375 GM IV (PMX) 100 ML IVPB SCH ×2 (01:32→10:38)
[2018-12-30] MEDS: ACCU-CHEK XX SCH (02:00)
[2018-12-30 02:13] VITALS: BP 120/71; PULSE 65; RESP 18
[2018-12-30] MEDS: DEXTROSE 5%-0.45% NACL 500 ML IV SCH ×2 (05:37→10:39)
[2018-12-30] MEDS: PANTOPRAZOLE 40 MG INJ IV SCH ×2 (05:38→18:59)
[2018-12-30] MEDS: FUROSEMIDE 40 MG INJ IV SCH ×2 (05:40→19:04)
[2018-12-30] MEDS: PANTOPRAZOLE (EC) 40 MG TAB PO SCH (05:40)
[2018-12-30] MEDS: INSULIN ASPART [NOVOLOG] 3 ML PEN SC SCH ×6 (07:35→18:05)
[2018-12-30 07:55] VITALS: BP 110/71; PULSE 70; RESP 16
[2018-12-30] MEDS: QUETIAPINE 100 MG TAB PO SCH (09:00)
[2018-12-30] MEDS: APIXABAN 5 MG TABLET PO SCH (09:00)
[2018-12-30] MEDS: ASPIRIN 81 MG TAB PO SCH (09:00)
[2018-12-30] MEDS: SUCRALFATE (100 MG/ML) 10ML CUP PO SCH ×3 (09:00→17:57)
[2018-12-30] MEDS: LISINOPRIL 5 MG TAB PO SCH (09:00)
[2018-12-30] MEDS: DIGOXIN 0.125 MG TAB PO SCH ×2 (13:00→15:40)
[2018-12-30 14:32] VITALS: BP 123/70; PULSE 66; RESP 16
[2018-12-30] MEDS ORDERED: LORAZEPAM 2 MG INJ IV PRN (15:30)
[2018-12-30] MEDS ORDERED: INSULIN ASPART [NOVOLOG] 3 ML PEN SC ONE (17:30)
== END 2018-12-30 20:21 | disposition home or self-care (01) | DRG 391 ==
LOC: PP2 14:52
PROVIDERS: ADMIT Internal Medicine Nephrology; ATTEND Internal Medicine Nephrology
PROC: 4A033R1 Measurement of Arterial Saturation, Peripheral, Percutaneous Approach (ICD-10-PCS; principal; 2018-12-29)
DX: K22.8 Other specified diseases of esophagus (principal); I50.23 Acute on chronic systolic (congestive) heart failure; Z68.43 Body mass index [BMI] 50.0-59.9, adult; I42.9 Cardiomyopathy, unspecified; I13.0 Hypertensive heart and chronic kidney disease with heart failure and stage 1 through stage 4 chronic kidney disease, or unspecified chronic kidney disease; E11.9 Type 2 diabetes mellitus without complications; E78.5 Hyperlipidemia, unspecified; J44.9 Chronic obstructive pulmonary disease, unspecified; I08.1 Rheumatic disorders of both mitral and tricuspid valves; E66.01 Morbid (severe) obesity due to excess calories; F31.9 Bipolar disorder, unspecified; K21.9 Gastro-esophageal reflux disease without esophagitis; I48.0 Paroxysmal atrial fibrillation; F12.10 Cannabis abuse, uncomplicated; F14.10 Cocaine abuse, uncomplicated; D72.829 Elevated white blood cell count, unspecified; K31.89 Other diseases of stomach and duodenum; F41.9 Anxiety disorder, unspecified; K76.9 Liver disease, unspecified; D63.8 Anemia in other chronic diseases classified elsewhere; N18.9 Chronic kidney disease, unspecified; Z79.82 Long term (current) use of aspirin; Z79.4 Long term (current) use of insulin; Z79.01 Long term (current) use of anticoagulants
CPT/HCPCS: 36600; 74230; 80048; 80053; 82803; 82962; 83735; 84100; 85025; 85610; 87081; 93005; 94640; 94664; C9113; J1170; J1815; J1885; J1940; J2060; J2405; J2543; Q9967